=== PATIENT | female | born 1945 | race African-American/Black ===

== ENCOUNTER 2016-11-10 14:16 | Inpatient (IN) | payer MEDICARE, OTHER ==
[~2016-11-10] VITALS: Ht 157.5 cm; Wt 95.3 kg
[~2016-11-10 14:16] MED LIST: ACETAMINOPHEN-1 EAC1 ORAL; ACTOPLUS PO; ALBUTEROL2.5 MG/3 M INH; AMLODIPINE BESY10 MG PO; GLIMEPIRIDE1 MG ORAL; HYZAAR 50-12.51 EACH PO; IBUPROFEN600 MG ORAL; IBUPROFEN800 MG PO; IRON325 M1 PO; LEVAQUIN500 MG ORAL; PIOGLITAZONE-M1 EACH ORAL; PREDNISONE1 MG PO; PREDNISONE5 M3 PO; PREDNISONE5 MG ORAL; VICODIN ES 7.51 EACH PO
[2016-11-10] MEDS ORDERED: Solu-MEDROL 125mg Inj IVP ONE (14:45)
[2016-11-10] MEDS ORDERED: Ipratropium 0.02% Inh Soln 2.5ml UD HHN ONE (14:45)
[2016-11-10] MEDS ORDERED: Azithromycin 500 MG in NS 275 ML IV ONE (14:45)
[2016-11-10] MEDS ORDERED: cefTRIAXone 1 GM in NS 55 ML IV ONE (14:45)
--- NOTE | 2016-11-10 14:57 | Emergency Room Report ---
History of Present Illness General Chief Complaint: General Complaint Source: Patient Present Illness HPI The patient presents with cough with green phlegm chest pain and wheezing. She has a nebulizer at home and is on home oxygen. She's history of COPD infrequently this developed pneumonia. She's been taking Levaquin for several days. The dysuria got worse today. She has extreme dyspnea with minimal exertion. Here she had pneumonia and was treated with prednisone at that time. She's not taking prednisone at this time. This is not her worst attack. She's complaining about pain in her left chest. It's pleuritic. She's been taking [place] for this. It's helped a little bit. She denies any blood clots. There is no swelling or pain in her calves. No headache, NVD, dysuria, joint pain, rashes. Somewhat frustrated with illness. Allergies: Coded Allergies: No Known Allergies (Unverified , 06/17/12) Patient History Past Medical History: see triage record Social History: Reports: smoking - 58 yrs "cutting down" Social History Narrative at home Reviewed Nursing Documentation: PMH: Agreed, PSxH: Agreed Nursing Documentation-PMH Past Medical History: No History, Except For Hx Hypertension: Yes Hx COPD: Yes - chronic bronchitis Hx Diabetes: Yes Hx Cancer: No Hx Gastrointestinal Problems: No Hx Neurological Problems: No Review of Systems All Other Systems: negative except mentioned in HPI Physical Exam Vital Signs Date Time Temp Pulse Resp B/P Pulse Ox O2 Delivery O2 Flow Rate FiO2 5/5/17 14:36 97.5 107 24 92/63 87 Room Air Sp02 EP Interpretation: reviewed, abnormal - abnormal as reviewed by me General Appearance: no apparent distress, GCS 15, obese, Chronically Ill Head: normocephalic Eyes: bilateral eye PERRL, bilateral eye normal inspection ENT: moist mucus membranes Neck: supple Respiratory: crackles, wheezing, expiration, inspiration Cardiovascular #1: regular rate, rhythm, no edema Cardiovascular #2: 2+ radial (R) Gastrointestinal: normal inspection, normal bowel sounds, non tender, no mass, non-distended Musculoskeletal: back normal, gait/station normal, normal range of motion Neurologic: alert, oriented x3, grossly normal Skin: normal inspection, warm/dry Medical Decision Making Diagnostic Impression: Primary Impression: COPD exacerbation Additional Impressions: Hypoxia Tobacco abuse ER Course The patient presents with hypoxia, wheezing and rales. Differential includes pneumonia, COPD exacerbation, acute myocardial infarction amongst others. The patient is hypoxemic year. I shall be delivered. Workup will include EKG, chest x-ray and labs including blood cultures and lactate. She will receive gentle hydration, Solu-Medrol, albuterol and Atrovent, morphine for pain, Zofran and Rocephin and azithromycin. CXR no infiltrate. EKG no injury. Labs sl elevated WBC, renal insufficiency, nl BNP. Discussed with patient need to stop smoking. Admit med Dr. Siddiqi. Laboratory Tests Test 11/10/16 15:20 11/10/16 16:20 White Blood Count 12.6 K/UL (4.8-10.8) H Red Blood Count 4.05 M/UL (4.20-5.40) L Hemoglobin 10.3 G/DL (12.0-16.0) L Hematocrit 34.1 % (37.0-47.0) L Mean Corpuscular Volume 84 FL (80-99) Mean Corpuscular Hemoglobin 25.6 PG (27.0-31.0) L Mean Corpuscular Hemoglobin Concent 30.4 G/DL (32.0-36.0) L Red Cell Distribution Width 17.3 % (11.6-14.8) H Platelet Count 383 K/UL (150-450) Mean Platelet Volume 6.2 FL (6.5-10.1) L Neutrophils (%) (Auto) 74.6 % (45.0-75.0) Lymphocytes (%) (Auto) 14.1 % (20.0-45.0) L Monocytes (%) (Auto) 7.6 % (1.0-10.0) Eosinophils (%) (Auto) 2.9 % (0.0-3.0) Basophils (%) (Auto) 0.8 % (0.0-2.0) Prothrombin Time 11.4 SEC (9.30-11.50) Prothrombin Time INR 1.1 (0.9-1.1) PTT 22 SEC (23-33) L Sodium Level 131 mEQ/L (135-145) L Potassium Level 4.0 mEQ/L (3.4-4.9) Chloride Level 90 mEQ/L (98-107) L Carbon Dioxide Level 22 mEQ/L (20-30) Anion Gap 19 (5-15) H Blood Urea Nitrogen 24 mg/dL (7-23) H Creatinine 1.1 mg/dL (0.5-0.9) H Estimate Glomerular Filtration Rate mL/min (>60) Glucose Level 80 mg/dL (74-106) Lactic Acid Level 1.70 mmol/L (0.66-2.22) Calcium Level 9.4 mg/dL (8.6-10.2) Total Bilirubin 0.2 mg/dL (0.0-1.2) Aspartate Amino Transferase (AST) 17 U/L (5-40) Alanine Aminotransferase (ALT) 9 U/L (3-33) Alkaline Phosphatase 66 U/L (35-104) Total Creatine Kinase 45 U/L (26-140) Troponin I < 0.30 ng/mL (<=0.30) Pro-B-Type Natriuretic Peptide 61 pg/mL (0-125) Total Protein 8.2 g/dL (6.6-8.7) Albumin 3.9 g/dL (3.5-5.2) Globulin 4.3 g/dL Albumin/Globulin Ratio 0.9 (1.0-2.7) L Urine Color Pale yellow Urine Appearance Clear Urine pH 6.5 (4.5-8.0) Urine Specific Magnet 1.010 (1.005-1.035) Urine Protein Negative (NEGATIVE) Urine Glucose (UA) Negative (NEGATIVE) Urine Ketones Negative (NEGATIVE) Urine Occult Blood Negative (NEGATIVE) Urine Nitrite Negative (NEGATIVE) Urine Bilirubin Negative (NEGATIVE) Urine Urobilinogen Normal MG/DL (0.0-1.0) Urine Leukocyte Esterase 1+ (NEGATIVE) H Urine RBC 0-2 /HPF (0 - 2) Urine WBC 2-4 /HPF (0 - 2) Urine Squamous Epithelial Cells Few /LPF (NONE/OCC) Urine Bacteria Few /HPF (NONE) EKG Diagnostic Results Rate: normal Rhythm: NSR ST Segments: no acute changes Rhythm Strip Diag. Results EP Interpretation: yes Rhythm: NSR, no PVC's, no ectopy Chest X-Ray Diagnostic Results EP Interpretation: Yes Findings: no effusion, no pneumothorax, other - bilat congestion Number of Views: 1 Last Vital Signs Date Time Temp Pulse Resp B/P Pulse Ox O2 Delivery O2 Flow Rate FiO2 11/10/16 14:36 97.5 107 24 92/63 87 Room Air Status: improved Disposition: ADMITTED INPATIENT Condition: Serious Esvin Fairchild M.D. November 10, 2016 14:57
[2016-11-10] MEDS: Albuterol ud Inhalation HHN SCH ×3 (15:07→18:47)
[2016-11-10 15:36] LABS: BASOPHILS % (AUTO) 0.8 % (0.0-2.0); EOSINOPHILS % (AUTO) 2.9 % (0.0-3.0); LYMPHOCYTES % (AUTO) 14.1 % (20.0-45.0); MEAN CORPUSCULAR HEMOGLOBIN 25.6 PG (27.0-31.0); MEAN CORPUSCULAR HGB CONC 30.4 G/DL (32.0-36.0); MEAN CORPUSCULAR VOLUME 84 FL (80-99); MEAN PLATELET VOLUME 6.2 FL (6.5-10.1); MONOCYTES % (AUTO) 7.6 % (1.0-10.0); NEUTROPHILS % (AUTO) 74.6 % (45.0-75.0); PLATELET COUNT 383 K/UL (150-450); RED BLOOD COUNT 4.05 M/UL (4.20-5.40); RED CELL DISTRIBUTION WIDTH 17.3 % (11.6-14.8); WHITE BLOOD COUNT 12.6 K/UL (4.8-10.8)
[2016-11-10 15:49] LABS: INR 1.1 (0.9-1.1); PROTHROMBIN TIME 11.4 SEC (9.30-11.50)
[2016-11-10 15:53] LABS: ALANINE AMINOTRANSFERASE 9 U/L (3-33); ALBUMIN/GLOBULIN RATIO 0.9 (1.0-2.7); ANION GAP 19 (5-15); ASPARTATE AMINO TRANSFERASE 17 U/L (5-40); CALCIUM 9.4 mg/dL (8.6-10.2); CARBON DIOXIDE 22 mEQ/L (20-30); CHLORIDE 90 mEQ/L (98-107); CREATININE 1.1 mg/dL (0.5-0.9); HEMOLYSIS 6; SODIUM 131 mEQ/L (135-145); TOTAL PROTEIN 8.2 g/dL (6.6-8.7)
[2016-11-10] MEDS ORDERED: Azithromycin Inj IV ONE (15:59)
[2016-11-10 16:43] LABS: APPEARANCE,URINE CLEAR; KETONES,URINE NEGATIVE (NEGATIVE); LEUKOCYTE ESTERASE ,URINE 1+ (NEGATIVE); NITRITE,URINE NEGATIVE (NEGATIVE); PH,URINE 6.5 (4.5-8.0); PROTEIN,URINE NEGATIVE (NEGATIVE); UROBILINOGEN,URINE NORMAL MG/DL (0.0-1.0)
[2016-11-10 17:00] LABS: BACTERIA,URINE FEW /HPF; RBC,URINE 0-2 /HPF (0 - 2); SQUAMOUS EPITHELIAL CELL,UR FEW /LPF (NONE/OCC)
[2016-11-10 17:15] LABS: TROPONIN I < 0.30 ng/mL (<=0.30)
[2016-11-10 18:00] VITALS: BP 124/41
[2016-11-10] MEDS ORDERED: GABAPENTIN300 MG ORAL (18:25)
[2016-11-10] MEDS ORDERED: HYZAAR 100-251 EACH ORAL (18:27)
[2016-11-10] MEDS ORDERED: LORazepam Inj 2mg/ml 1ml IV PRN (18:30)
[2016-11-10] MEDS ORDERED: DuoNeb 0.5-3(2.5)mg/3ml neb HHN PRN (18:30)
[2016-11-10] MEDS ORDERED: Ketorolac 30mg Inj IV PRN (18:30)
[2016-11-10] MEDS ORDERED: Morphine Sulfate 2mg/ml Inj IVP PRN (18:30)
[2016-11-10] MEDS ORDERED: Nitroglycerin Subl 0.4mg tab (Bottle Of 25) SL PRN (18:30)
[2016-11-10] MEDS ORDERED: NORCO 5-325 TA1 EACH ORAL (18:34)
[2016-11-10] MEDS ORDERED: LEVOFLOXACIN500 MG ORAL (18:37)
[2016-11-10] MEDS ORDERED: ACTOPLUS MET ORAL ×2 (18:40→23:30)
[2016-11-10] MEDS ORDERED: GLIMEPIRIDE2 MG ORAL (18:45)
[2016-11-10] MEDS ORDERED: ATORVASTATIN CA40 MG ORAL (18:48)
[2016-11-10 19:18] VITALS: BP 140/52
[2016-11-10] MEDS: Theophylline ER 100mg ORAL SCH (20:31)
[2016-11-10] MEDS: Zosyn 3.375gm q8h **Extended infusion IVPB SCH ×2 (20:32)
[2016-11-10] MEDS: Heparin 5000 units/ml inj SUBQ SCH (21:00)
[2016-11-10] MEDS ORDERED: Piperacillin/Tazobactam 2.25 GM in D5W 55 ML IV SCH (22:00)
[2016-11-10] MEDS ORDERED: METFORMIN HCL850 M1 ORAL (23:11)
[2016-11-11] VITALS: BP 142/59
[2016-11-11] MEDS: Solu-MEDROL 125mg Inj IV SCH ×4 (00:09→17:26)
[2016-11-11 04:00] VITALS: BP 146/59
[2016-11-11] MEDS: Glimepiride 1mg tab ORAL SCH (06:20)
[2016-11-11] MEDS: Zosyn 3.375gm q8h **Extended infusion IVPB SCH ×6 (06:21→20:56)
[2016-11-11 08:00] VITALS: BP 141/54
[2016-11-11] MEDS: Theophylline ER 100mg ORAL SCH ×2 (08:37→20:56)
[2016-11-11] MEDS: Heparin 5000 units/ml inj SUBQ SCH ×2 (08:40→20:57)
[2016-11-11 12:00] VITALS: BP 139/56
--- NOTE | 2016-11-11 14:10 | Infectious Diseases Prog Note ---
Assessment/Plan Problems: (1) Community acquired pneumonia Assessment & Plan: on zosyn , will send sputum culture and blood culture , monitor CXR (2) COPD exacerbation Assessment & Plan: on steroids, and bronchodilators, recommend to taper steroids (3) Hypoxia Assessment & Plan: due to the above, continue oxygen and bronchodilators, titrate oxygen as needed Subjective Allergies: Coded Allergies: No Known Allergies (Unverified , 06/17/12) Objective Vital Signs Last 24 Hour Vital Signs Date Time Temp Pulse Resp B/P Pulse Ox O2 Delivery O2 Flow Rate FiO2 11/11/16 12:00 98.2 104 19 139/56 96 Nasal Cannula 11/11/16 08:37 112 141/54 11/11/16 08:00 97.9 112 19 141/54 93 Nasal Cannula 11/11/16 07:42 Nasal Cannula 2.0 28 11/11/16 07:42 94 Nasal Cannula 2.0 28 11/11/16 04:00 98.7 88 19 146/59 95 Nasal Cannula 11/11/16 00:00 97.7 58 20 142/59 100 Nasal Cannula 11/10/16 23:36 Nasal Cannula 2.0 28 11/10/16 23:00 95 2.0 28 11/10/16 19:18 97.5 100 16 140/52 100 Nasal Cannula 2.0 11/10/16 18:53 85 18 100 Nasal Cannula 2.0 28 11/10/16 18:48 80 18 95 Nasal Cannula 2.0 28 11/10/16 18:30 104 18 113/54 92 Nasal Cannula 2.0 11/10/16 18:00 97.6 106 16 124/41 99 Nasal Cannula 2.0 11/10/16 16:10 93 20 100 Nasal Cannula 2.0 28 11/10/16 15:55 91 18 100 Nasal Cannula 2.0 28 11/10/16 15:12 87 16 100 Nasal Cannula 2.0 28 11/10/16 15:00 85 14 Nasal Cannula 2.0 28 11/10/16 15:00 85 14 100 Nasal Cannula 2.0 28 11/10/16 14:36 97.5 107 24 92/63 87 Room Air Height (Feet): 5 Height (Inches): 2.00 Weight (Pounds): 210 Microbiology Date/Time Source Procedure Growth Status 11/11/16 00:15 Sputum Gram Stain - Final Resulted 11/11/16 00:15 Sputum Sputum Culture Pending Resulted Laboratory Tests Test 11/10/16 15:20 11/10/16 16:20 White Blood Count 12.6 K/UL (4.8-10.8) H Red Blood Count 4.05 M/UL (4.20-5.40) L Hemoglobin 10.3 G/DL (12.0-16.0) L Hematocrit 34.1 % (37.0-47.0) L Mean Corpuscular Volume 84 FL (80-99) Mean Corpuscular Hemoglobin 25.6 PG (27.0-31.0) L Mean Corpuscular Hemoglobin Concent 30.4 G/DL (32.0-36.0) L Red Cell Distribution Width 17.3 % (11.6-14.8) H Platelet Count 383 K/UL (150-450) Mean Platelet Volume 6.2 FL (6.5-10.1) L Neutrophils (%) (Auto) 74.6 % (45.0-75.0) Lymphocytes (%) (Auto) 14.1 % (20.0-45.0) L Monocytes (%) (Auto) 7.6 % (1.0-10.0) Eosinophils (%) (Auto) 2.9 % (0.0-3.0) Basophils (%) (Auto) 0.8 % (0.0-2.0) Prothrombin Time 11.4 SEC (9.30-11.50) Prothromb Time International Ratio 1.1 (0.9-1.1) Activated Partial Thromboplast Time 22 SEC (23-33) L Sodium Level 131 mEQ/L (135-145) L Potassium Level 4.0 mEQ/L (3.4-4.9) Chloride Level 90 mEQ/L (98-107) L Carbon Dioxide Level 22 mEQ/L (20-30) Anion Gap 19 (5-15) H Blood Urea Nitrogen 24 mg/dL (7-23) H Creatinine 1.1 mg/dL (0.5-0.9) H Estimat Glomerular Filtration Rate mL/min (>60) Glucose Level 80 mg/dL (74-106) Lactic Acid Level 1.70 mmol/L (0.66-2.22) Calcium Level 9.4 mg/dL (8.6-10.2) Total Bilirubin 0.2 mg/dL (0.0-1.2) Aspartate Amino Transf (AST/SGOT) 17 U/L (5-40) Alanine Aminotransferase (ALT/SGPT) 9 U/L (3-33) Alkaline Phosphatase 66 U/L (35-104) Total Creatine Kinase 45 U/L (26-140) Troponin I < 0.30 ng/mL (<=0.30) Pro-B-Type Natriuretic Peptide 61 pg/mL (0-125) Total Protein 8.2 g/dL (6.6-8.7) Albumin 3.9 g/dL (3.5-5.2) Globulin 4.3 g/dL Albumin/Globulin Ratio 0.9 (1.0-2.7) L Urine Color Pale yellow Urine Appearance Clear Urine pH 6.5 (4.5-8.0) Urine Specific Presto 1.010 (1.005-1.035) Urine Protein Negative (NEGATIVE) Urine Glucose (UA) Negative (NEGATIVE) Urine Ketones Negative (NEGATIVE) Urine Occult Blood Negative (NEGATIVE) Urine Nitrite Negative (NEGATIVE) Urine Bilirubin Negative (NEGATIVE) Urine Urobilinogen Normal MG/DL (0.0-1.0) Urine Leukocyte Esterase 1+ (NEGATIVE) H Urine RBC 0-2 /HPF (0 - 2) Urine WBC 2-4 /HPF (0 - 2) Urine Squamous Epithelial Cells Few /LPF (NONE/OCC) Urine Bacteria Few /HPF (NONE) Current Medications Medications (Trade) Dose Ordered Sig/Ana Maria Route PRN Reason Start Time Stop Time Status Last Admin Dose Admin Albuterol/ Ipratropium (DuoNeb 0.5-3(2.5)mg/3ml) 3 ml Q4H PRN HHN dyspnea 11/10/16 18:30 11/15/16 18:29 Amlodipine Besylate (Norvasc) 10 mg DAILY ORAL 11/11/16 09:00 12/11/16 08:59 11/11/16 08:37 Dextrose STAT PRN IV Hypoglycemia 11/10/16 18:30 12/10/16 18:29 Glimepiride (Amaryl) 2 mg ACBREAKFAST ORAL 11/11/16 06:30 12/11/16 06:29 11/11/16 06:20 Heparin Sodium (Porcine) (Heparin 5000 units/ml) 5,000 units EVERY 12 HOURS SUBQ 11/10/16 21:00 12/10/16 20:59 11/11/16 08:40 Ketorolac Tromethamine (Toradol 30mg) 30 mg Q8H PRN IV Moderate Pain (Pain Scale 4-6) 11/10/16 18:30 11/15/16 18:29 Lorazepam (Ativan 2mg/ml 1ml) 0.5 mg Q4H PRN IV For Anxiety 11/10/16 18:30 11/17/16 18:29 Metformin HCl (Glucophage) 850 mg BID ORAL 11/11/16 09:00 12/11/16 08:59 11/11/16 08:37 Methylprednisolone Sodium Succinate (Solu-MEDROL) 60 mg EVERY 6 HOURS IV 11/11/16 00:00 12/11/16 00:00 11/11/16 12:36 Morphine Sulfate (Morphine Sulfate) 2 mg Q4H PRN IVP Severe Pain (Pain Scale 7-10) 11/10/16 18:30 11/17/16 18:29 Nitroglycerin (Ntg) 0.4 mg Q5M X 3 DOSES PRN SL Prn Chest Pain 11/10/16 18:30 12/10/16 18:29 Ondansetron HCl (Zofran) 4 mg Q6H PRN IVP Nausea & Vomiting 11/10/16 18:30 12/10/16 18:29 Pioglitazone HCl (Actos) 15 mg BID PO 11/11/16 09:00 12/11/16 08:59 11/11/16 08:37 Piperacillin Sod/ Tazobactam Sod/ Dextrose (Zosyn/D5W) 110 ml @ 27.5 mls/hr EVERY 8 HOURS IVPB 11/10/16 20:00 11/15/16 19:59 11/11/16 13:10 Promethazine HCl/ Codeine (Phenergan with Codeine) 5 ml Q6H PRN ORAL cough 11/10/16 18:30 12/10/16 18:29 Temazepam (Restoril) 15 mg HSPRN PRN ORAL Insomnia 11/10/16 21:00 11/17/16 20:59 11/11/16 00:19 Theophylline (Sixto-Dur) 100 mg EVERY 12 HOURS ORAL 11/10/16 21:00 12/10/16 20:59 11/11/16 08:37 Rivka Mclean M.D. November 11, 2016 14:10
[2016-11-11 16:00] VITALS: BP 142/57
--- NOTE | 2016-11-11 17:08 | History and Physical Report ---
DATE OF ADMISSION: 11/10/2016 TIME SEEN: 8 a.m. CONSULTING PHYSICIAN: Jai Siddiqi D.O. CONSULTANTS: 1. Monika Sarmiento M.D. 2. CHIEF COMPLAINT: COPD exacerbation and short of breath. BRIEF HISTORY: This is a 71-year-old female who comes to my office regularly. Apparently, four days ago, started having cold and was started on antibiotics and phlegm started turning green. The patient became very short of breath yesterday, came into [facility], diagnosed with COPD exacerbation and URI, and admitted to medical floor for further care. Currently, calm, no complaints. PAST MEDICAL HISTORY: Include hypertension, diabetes, rheumatoid arthritis, and COPD. PAST SURGICAL HISTORY: Gallbladder. MEDICATIONS: Include Norvasc, Actos, Glucophage, Amaryl, Solu-Medrol, heparin, Zestril, theophylline, Zosyn, DuoNeb, Toradol, Ativan, morphine, nitroglycerine, Zofran, and promethazine. ALLERGIES: Denies. SOCIAL HISTORY: Positive for smoking. No alcohol. No intravenous drug abuse. FAMILY HISTORY: Noncontributory. REVIEW OF SYSTEMS: No chest pain. No shortness of breath. No nausea, vomiting, or diarrhea. PHYSICAL EXAMINATION: GENERAL: Calm in bed, oriented x3 . VITAL SIGNS: Temperature 97.0 degrees, pulse 112, respiratory rate 19, and blood pressure 141/54. CARDIOVASCULAR: No murmur. LUNGS: Poor exchange. ABDOMEN: Positive bowel sounds. Nontender and nondistended. EXTREMITIES: No clubbing, cyanosis, or edema. NEUROLOGIC: The patient moves all extremities. Slightly weak. LABORATORY AND DIAGNOSTIC DATA: Labs at this time show white count 12.6, hemoglobin and hematocrit 10/34, and platelets 383,000. Sodium 131, chloride 90, BUN and creatinine 24 and 1.1, and INR is 1.1. Urinalysis show 1+ leukocyte esterase. ASSESSMENT: 1. Urinary tract infection. 2. Chronic obstructive pulmonary disease exacerbation. 3. Upper respiratory infection. 4. Sepsis. 5. Hypertension. 6. Anemia. 7. Diabetes. 8. Rheumatoid arthritis. PLAN: Continue premedications. O2 and pulmonary treatment. Taper off steroids, antibiotics . OT/PT. Dietary evaluation. CBC and BMP in the morning. Dr. Sarmiento, consult. Jai Siddiqi D.O. DR: Joe JOB#: [id number] CC:
--- NOTE | 2016-11-11 17:33 | Cardiology Report ---
APPROVED REPORT EKG Measurement Heart [id number] Normal sinus rhythm Normal ECG
--- NOTE | 2016-11-11 19:53 | General Progress Note ---
Progress Note Progress Note [id number] full note dictated BLAIRE SANCHEZ November 11, 2016 19:53
[2016-11-11 20:00] VITALS: BP 122/57
--- NOTE | 2016-11-11 20:38 | Consultation ---
DATE OF CONSULTATION: 11/11/2016 INFECTIOUS DISEASES CONSULTATION: CONSULTING PHYSICIAN: Rivka Mclean M.D. ATTENDING PHYSICIAN: Jai Siddiqi M.D. REFERRING PHYSICIAN: Jai Siddiqi M.D. REQUESTING PHYSICIAN: Jai Siddiqi M.D. REASON FOR CONSULTATION: Pneumonia and recommendation for antibiotic therapy and the patient on failed oral outpatient. HISTORY OF PRESENT ILLNESS: The patient is a 71-year-old female with past medical history of COPD, bronchitis, and diabetes, presented to the hospital with productive cough, chest tightness, and progressive shortness of breath and it started a couple of days ago. The patient was using her inhalers at home with some benefit. She was started empirically on oral levofloxacin as an outpatient from Sunday to Sunday with no significant improvement. Her cough was persistent and continued to bring up yellowish phlegm, so she came into [facility] for evaluation and I was asked by the primary provider for antibiotics choice and further recommendation. PAST MEDICAL HISTORY: Significant for hypertension, COPD, and diabetes. PAST SURGICAL HISTORY: Unknown. SOCIAL HISTORY: She is a former smoker, currently smoking too. She is attempting to quit. She is denying any alcohol or any drugs. FAMILY HISTORY: Not contributory. ALLERGIES: No known drug allergy. MEDICATIONS: She is on Zosyn. For the rest of her medications, please refer to MAR as she is on a large dose of steroid. REVIEW OF SYSTEMS: A 12-point of system review were all negative apart from the one as I mentioned above in my History and Physical. PHYSICAL EXAMINATION: VITAL SIGNS: Temperature is 98.2 degrees, pulse 104, respiration 19, blood pressure 139/56, and pulse oximetry 96% on two liters nasal cannula. GENERAL: This is a morbidly obese female, lying in bed, awake, alert, and not in distress. HEENT: Normocephalic and atraumatic. Pupils are reactive to light. Moist oral mucosa. NECK: Supple. No lymphadenopathy. CARDIOVASCULAR: She is tachycardic. S1 and S2 are normal. No murmur. LUNGS: She had diminished breathing sound on both lung pacheco with wheezing at the bases and normal breathing efforts. ABDOMEN: Soft, obese, nontender, and nondistended. EXTREMITIES: No edema or cyanosis. LABORATORY DATA: Labs showed white count of 12.6, hemoglobin of 10.3, and platelet count 383,000, BUN of 24 and creatinine of 1.1. Urinalysis showed +1 leukocyte esterase, otherwise normal parameters. MICROBIOLOGY STUDIES: Sputum culture is pending. IMAGING DATA: Chest x-ray showed bilateral congestion. ASSESSMENT AND PLAN: 1. Community-acquired pneumonia, failed Levaquin as an outpatient. I agree on Zosyn for now empiric treatment and monitor chest x-ray. We will send sputum culture and blood culture. 2. Chronic obstructive pulmonary disease exacerbation, started on large dose of steroid. Continue bronchodilators. Recommend to taper steroids and to stop. 3. Hypoxemia due to the above. Continue oxygen and bronchodilator. Titrate oxygen to keep O2 saturation more than 90%. Thank you for the consult. Rivka Mclean M.D. DR: Erasmo JOB#: [id number] CC:
[2016-11-11] MEDS: NovoLOG Insulin Flexpen SUBQ SCH (20:57)
--- NOTE | 2016-11-11 22:03 | Consultation ---
History of Present Illness General Chief Complaint: General Complaint Present Illness HPI 71 year old female with hx of COPD, DM, liver disease presents to [place] [facility] [place] with cough with green phlegm chest pain and wheezing, some dysuria got worse today. She has extreme dyspnea with minimal exertion. She was diagnosed with acute exacerbation of asthmas/copd and admitted for further treatment. Allergies: Coded Allergies: No Known Allergies (Unverified , 06/17/12) Medication History Scheduled Amlodipine Besylate* (Amlodipine Besylate*), 10 MG PO DAILY, (Reported) Atorvastatin Calcium* (Atorvastatin Calcium*), 40 MG ORAL BEDTIME, (Reported) Gabapentin* (Gabapentin*), 300 MG ORAL BEDTIME, (Reported) Glimepiride (Glimepiride), 2 MG ORAL BEFORE BREAKFAST, (Reported) Levofloxacin (Levofloxacin*), 500 MG ORAL DAILY, (Reported) Losartan/Hydrochlorothiazide 100-25 Tablet (Hyzaar 100-25 Tablet), 1 TAB ORAL DAILY, (Reported) Pioglitazone Hcl/Metformin Hcl (Actoplus Met 15 Mg-850 Mg Tab), 1 TAB ORAL TWICE A DAY, (Reported) Pioglitazone Hcl/Metformin Hcl (Actoplus Met 15 Mg-850 Mg Tab), 1 TAB ORAL TWICE A DAY, (Reported) Scheduled PRN Albuterol Sulfate* (Albuterol Sulfate Hhn*), 3 ML INH Q4H PRN for Shortness of Breath, (Reported) Hydrocodone Bit/Acetaminophen 5-325* (Fenton 5-325*), 1 TAB ORAL DAILY PRN for Severe Pain (Pain Scale 7-10), (Reported) Ibuprofen* (Motrin*), 600 MG ORAL Q6H PRN for For Pain, (Reported) Discontinued Medications Acetaminophen With Codeine (T#3) (Tylenol #3 Tab*), 1 TAB ORAL Q4H PRN for For Pain, (Reported) Discontinued Reason: Pt stopped taking med Ferrous Sulfate (Iron), 325 MG PO TID, (Reported) Discontinued Reason: Pt stopped taking med Ibuprofen* (Motrin*), 800 MG PO PRN, (Reported) Discontinued Reason: Pt stopped taking med Levofloxacin* (Levaquin*), 500 MG ORAL DAILY, (Reported) Discontinued Reason: Pt stopped taking med Losartan/Hydrochlorothiazide 50-12.5 Tablet* (Hyzaar 50-12.5 Tablet*), 1 EACH PO DAILY, (Reported) Discontinued Reason: Pt stopped taking med Prednisone (Prednisone), 5 MG ORAL DAILY, (Reported) Discontinued Reason: Pt stopped taking med Prednisone (Prednisone), 4 MG PO, (Reported) Discontinued Reason: Pt stopped taking med Prednisone (Prednisone), 4 MG PO DAILY, (Reported) Discontinued Reason: Pt stopped taking med Prednisone (Prednisone), 1 MG PO DAILY, (Reported) Discontinued Reason: Pt stopped taking med Patient History Healthcare decision maker Resuscitation status Full Code Advanced Directive on File Past Medical/Surgical History Past Medical/Surgical History: (1) COPD (chronic obstructive pulmonary disease) (2) Chronic liver disease (3) Anemia Review of Systems All Other Systems: negative except mentioned in HPI Physical Exam General Appearance: WD/WN Lines, tubes and drains: peripheral HEENT: normocephalic, atraumatic Neck: non-tender, normal alignment Respiratory/Chest: chest wall non-tender Cardiovascular/Chest: normal peripheral pulses Abdomen: normal bowel sounds Genitourinary/Rectal: normal genital exam Extremities: normal range of motion Skin Exam: normal pigmentation Last 24 Hour Vital Signs Date Time Temp Pulse Resp B/P Pulse Ox O2 Delivery O2 Flow Rate FiO2 11/11/16 20:00 96.4 105 17 122/57 95 Room Air 11/11/16 19:30 93 Nasal Cannula 2.0 28 11/11/16 19:30 Nasal Cannula 2.0 28 11/11/16 16:00 97.8 98 19 142/57 97 Nasal Cannula 11/11/16 12:00 98.2 104 19 139/56 96 Nasal Cannula 11/11/16 08:37 112 141/54 11/11/16 08:00 97.9 112 19 141/54 93 Nasal Cannula 11/11/16 07:42 Nasal Cannula 2.0 28 11/11/16 07:42 94 Nasal Cannula 2.0 28 11/11/16 04:00 98.7 88 19 146/59 95 Nasal Cannula 11/11/16 00:00 97.7 58 20 142/59 100 Nasal Cannula 11/10/16 23:36 Nasal Cannula 2.0 28 11/10/16 23:00 95 2.0 28 Intake and Output 11/10/16 11/11/16 19:00 07:00 Intake Total 175 ml 110.0 ml Balance 175 ml 110.0 ml Intake Oral 120 ml IV Total 55 ml 110.0 ml # Voids 1 # Bowel Movements 1 Laboratory Tests Test 11/11/16 06:00 Plasma/Serum Osmolality Pending Microbiology Date/Time Source Procedure Growth Status 11/11/16 00:15 Sputum Gram Stain - Final Resulted 11/11/16 00:15 Sputum Sputum Culture Pending Resulted Height (Feet): 5 Height (Inches): 2.00 Weight (Pounds): 210 Medications Current Medications Medications (Trade) Dose Ordered Sig/Ana Maria Route PRN Reason Start Time Stop Time Status Last Admin Dose Admin Albuterol/ Ipratropium (DuoNeb 0.5-3(2.5)mg/3ml) 3 ml Q4H PRN HHN dyspnea 11/10/16 18:30 11/15/16 18:29 Amlodipine Besylate (Norvasc) 10 mg DAILY ORAL 11/11/16 09:00 12/11/16 08:59 11/11/16 08:37 Dextrose (Dextrose 50%) STAT PRN IV Hypoglycemia 11/11/16 19:00 12/11/16 18:59 Dextrose STAT PRN IV Hypoglycemia 11/10/16 18:30 12/10/16 18:29 Glimepiride (Amaryl) 2 mg ACBREAKFAST ORAL 11/11/16 06:30 12/11/16 06:29 11/11/16 06:20 Heparin Sodium (Porcine) (Heparin 5000 units/ml) 5,000 units EVERY 12 HOURS SUBQ 11/10/16 21:00 12/10/16 20:59 11/11/16 20:57 Insulin Aspart (NovoLOG) BEFORE MEALS AND HS SUBQ 11/11/16 21:00 12/11/16 20:59 11/11/16 20:57 Ketorolac Tromethamine (Toradol 30mg) 30 mg Q8H PRN IV Moderate Pain (Pain Scale 4-6) 11/10/16 18:30 11/15/16 18:29 Lorazepam (Ativan 2mg/ml 1ml) 0.5 mg Q4H PRN IV For Anxiety 11/10/16 18:30 11/17/16 18:29 Metformin HCl (Glucophage) 850 mg BID ORAL 11/11/16 09:00 12/11/16 08:59 11/11/16 17:26 Methylprednisolone Sodium Succinate (Solu-MEDROL) 60 mg EVERY 6 HOURS IV 11/11/16 00:00 12/11/16 00:00 11/11/16 17:26 Morphine Sulfate (Morphine Sulfate) 2 mg Q4H PRN IVP Severe Pain (Pain Scale 7-10) 11/10/16 18:30 11/17/16 18:29 Nitroglycerin (Ntg) 0.4 mg Q5M X 3 DOSES PRN SL Prn Chest Pain 11/10/16 18:30 12/10/16 18:29 Ondansetron HCl (Zofran) 4 mg Q6H PRN IVP Nausea & Vomiting 11/10/16 18:30 12/10/16 18:29 Pioglitazone HCl (Actos) 15 mg BID PO 11/11/16 09:00 12/11/16 08:59 11/11/16 17:26 Piperacillin Sod/ Tazobactam Sod/ Dextrose (Zosyn/D5W) 110 ml @ 27.5 mls/hr EVERY 8 HOURS IVPB 11/10/16 20:00 11/15/16 19:59 11/11/16 20:56 Promethazine HCl/ Codeine (Phenergan with Codeine) 5 ml Q6H PRN ORAL cough 11/10/16 18:30 12/10/16 18:29 Temazepam (Restoril) 15 mg HSPRN PRN ORAL Insomnia 11/10/16 21:00 11/17/16 20:59 11/11/16 00:19 Theophylline (Sixto-Dur) 100 mg EVERY 12 HOURS ORAL 11/10/16 21:00 12/10/16 20:59 11/11/16 20:56 Assessment/Plan Problem List: (1) Acute hypoxemic respiratory failure ICD Codes: J96.01 - Acute respiratory failure with hypoxia SNOMED: 361655999 (2) COPD exacerbation ICD Codes: J44.1 - Chronic obstructive pulmonary disease with (acute) exacerbation SNOMED: 338528924 (3) Chronic liver disease ICD Codes: K76.9 - Liver disease, unspecified SNOMED: 407116136 (4) Tobacco abuse ICD Codes: Z72.0 - Tobacco use SNOMED: 355520531, 02411189 Assessment/Plan respiratory treatment titrate fio2 iv antibiotics iv steroids dvt prophylaxis KYMBERLY JURADO November 11, 2016 22:03
[2016-11-12] VITALS: BP 115/47
[2016-11-12] MEDS: Solu-MEDROL 125mg Inj IV SCH ×5 (00:07→23:37)
[2016-11-12 03:30] LABS: CREATININE, RANDOM URINE 111.2 mg/dL
[2016-11-12 04:00] VITALS: BP 119/52
--- NOTE | 2016-11-12 05:28 | Consultation ---
DATE OF CONSULTATION: 11/11/2016 NEPHROLOGY CONSULTATION CONSULTING PHYSICIAN: Brook Robin M.D. REFERRING PHYSICIAN: Jai Siddiqi D.O. REASON FOR CONSULTATION: Hyponatremia. HISTORY OF PRESENT ILLNESS: The patient is a very pleasant 71-year-old female with a past medical history significant for hypertension, osteoarthritis, and diabetes, who is being treated as an outpatient for chronic obstructive pulmonary disease exacerbation and bronchitis with p.o. antibiotics, home O2, and nebulizer without any relief. She presented to emergency room for worsening of her symptoms. She was found to have pneumonia. She was found to have sodium of 131. I was called for management of renal disease and electrolyte imbalance. PAST MEDICAL HISTORY: Including, 1. History of arthritis. 2. History of chronic obstructive pulmonary disease. 3. History of hypertension. 4. History of hyperlipidemia. SOCIAL HISTORY: She has a history of smoking. There is no history of alcohol or recreational drug use. She lives at home. FAMILY HISTORY: Negative for any history of premature heart disease. REVIEW OF SYSTEMS: General: She complained of generalized weakness. Denied any fever, chills, or night sweats. Head And Neck: Denies any dysphagia, odynophagia, blurry vision, headache, or neck stiffness. Pulmonary: Complained of shortness of breath, cough, and green sputum. Cardiovascular: Denies any chest pain or palpitations. Gastrointestinal: Denies any nausea, vomiting, diarrhea, hematemesis, or hematochezia. Genitourinary: Denies any dysuria, frequency, or hematuria. Musculoskeletal: Denies any weakness or numbness. PHYSICAL EXAMINATION: VITAL SIGNS: The patient had temperature of 97 degrees, pulse rate of 100, respiratory rate of 24, and O2 saturation of 87%. HEAD AND NECK: No JVP. No LAD. No thyromegaly. Extraocular movement intact. Pupils are reactive to light and accommodation. LUNGS: She has bilateral wheezing. CARDIAC: Regular rate and rhythm. S1 and S2. No murmur. No rub. ABDOMEN: Soft, nontender, and nondistended. EXTREMITIES: No edema. No clubbing. No cyanosis. LABORATORY DATA: Laboratory value reveals sodium 131, potassium 4, chloride 90, bicarb 22, BUN of 24, creatinine of 1.1, and glucose of 80. AST of 17, AST of 9, and alkaline phosphatase of 66. Total protein of 8.2. Albumin of 3.9. CBC revealed WBC count of 12,000, hemoglobin of 10.3, hematocrit of 34, and platelet count of 383,000. UA revealed specific gravity of 1.010, pH of 6, leukocyte esterase 1+, WBC 2 to 4, RBCs 0 to 2, and leukocyte esterase positive. ASSESSMENT: 1. isovolemic hyponatremia, syndrome of inappropriate antidiuretic hormone secretion, possibly due to pneumonia. 2. Urinary tract infection. 3. Chronic obstructive pulmonary disease exacerbation. 4. Hypertension. 5. Diabetes. PLAN: Plan for the patient to obtain a random urine protein creatinine ratio to calculate the proteinuria. Check the urine sodium and creatinine to calculate fractional excretion of sodium. Check a TSH. Check the urine osmolality and serum osmolality. intravenous piggyback with normal saline. Free water restriction. Avoid any NSAIDs and nephrotoxics. Again, I would like to thank, Dr. Jai Siddiqi, for allowing me to participate in the care of this patient. Brook Robin M.D. DR: CHUCKIE JOB#: [id number] CC: ETELVINA
[2016-11-12] MEDS: Glimepiride 1mg tab ORAL SCH (06:06)
[2016-11-12] MEDS: Zosyn 3.375gm q8h **Extended infusion IVPB SCH ×6 (06:06→21:26)
[2016-11-12] MEDS: NovoLOG Insulin Flexpen SUBQ SCH ×4 (06:08→20:32)
[2016-11-12 07:50] LABS: MEAN CORPUSCULAR HEMOGLOBIN 26.1 PG (27.0-31.0); MEAN CORPUSCULAR HGB CONC 30.4 G/DL (32.0-36.0); MEAN CORPUSCULAR VOLUME 86 FL (80-99); MEAN PLATELET VOLUME 6.4 FL (6.5-10.1); PLATELET COUNT 351 K/UL (150-450); RED BLOOD COUNT 3.65 M/UL (4.20-5.40); RED CELL DISTRIBUTION WIDTH 17.1 % (11.6-14.8)
[2016-11-12 08:00] VITALS: BP 118/50
[2016-11-12 08:00] LABS: WHITE BLOOD COUNT 22.4 K/UL (4.8-10.8)
--- NOTE | 2016-11-12 08:01 | General Progress Note ---
Assessment/Plan Problem List: (1) Anemia ICD Codes: D64.9 - Anemia, unspecified SNOMED: 299216965 (2) Sepsis ICD Codes: A41.9 - Sepsis, unspecified organism SNOMED: 65084744 (3) Acute hypoxemic respiratory failure ICD Codes: J96.01 - Acute respiratory failure with hypoxia SNOMED: 093621413 (4) Tobacco abuse ICD Codes: Z72.0 - Tobacco use SNOMED: 519027137, 77531123 (5) Hypoxia ICD Codes: R09.02 - Hypoxemia SNOMED: 199734559, 21781335 (6) COPD exacerbation ICD Codes: J44.1 - Chronic obstructive pulmonary disease with (acute) exacerbation SNOMED: 573597837 (7) Community acquired pneumonia ICD Codes: J18.9 - Pneumonia, unspecified organism SNOMED: 576891039 Status: stable, progressing, tolerating diet Assessment/Plan o2 pulm tx abx ot pt diet cbc bmp am Subjective Constitutional: Reports: weakness Allergies: Coded Allergies: No Known Allergies (Unverified , 06/17/12) All Systems: reviewed and negative except above Subjective o2nc sl sob Objective Last 24 Hour Vital Signs Date Time Temp Pulse Resp B/P Pulse Ox O2 Delivery O2 Flow Rate FiO2 11/12/16 04:00 97.6 94 17 119/52 100 Room Air 11/12/16 00:00 97.2 100 19 115/47 95 Room Air 11/11/16 20:00 96.4 105 17 122/57 95 Room Air 11/11/16 19:30 93 Nasal Cannula 2.0 28 11/11/16 19:30 Nasal Cannula 2.0 28 11/11/16 16:00 97.8 98 19 142/57 97 Nasal Cannula 11/11/16 12:00 98.2 104 19 139/56 96 Nasal Cannula 11/11/16 08:37 112 141/54 11/11/16 08:00 97.9 112 19 141/54 93 Nasal Cannula Intake and Output 11/11/16 11/12/16 19:00 07:00 Intake Total 670.0 ml Balance 670.0 ml Intake Oral 450 ml IV Total 220.0 ml # Voids 3 1 # Bowel Movements 2 Laboratory Tests 11/12/16 01:00: Urine Eosinophils [Pending], Urine Osmolality [Pending], Urine Random Creatinine [Pending], Urine Random Microalbumin [Pending], Urine Random Total Protein 17, Urine Random Sodium 18, Urine Creatinine 111.2, Urine Microalbumin/ Creatinine Ratio [Pending] 11/12/16 07:20: White Blood Count [Pending], Red Blood Count [Pending], Hemoglobin [Pending], Hematocrit [Pending], Mean Corpuscular Volume [Pending], Mean Corpuscular Hemoglobin [Pending], Mean Corpuscular Hemoglobin Concent [Pending], Red Cell Distribution Width [Pending], Platelet Count [Pending], Mean Platelet Volume [ Pending], Neutrophils (%) (Auto) [Pending], Lymphocytes (%) (Auto) [Pending], Monocytes (%) (Auto) [Pending], Eosinophils (%) (Auto) [Pending], Basophils (%) (Auto) [Pending], Sodium Level [Pending], Potassium Level [Pending], Chloride Level [Pending], Carbon Dioxide Level [Pending], Blood Urea Nitrogen [Pending], Creatinine [Pending], Estimat Glomerular Filtration Rate [Pending], Glucose Level [Pending], Calcium Level [Pending] Height (Feet): 5 Height (Inches): 2.00 Weight (Pounds): 210 General Appearance: alert EENT: normal ENT inspection Neck: normal alignment Cardiovascular: normal peripheral pulses, normal rate, regular rhythm Respiratory/Chest: chest wall non-tender, lungs clear, decreased breath sounds Abdomen: normal bowel sounds, non tender, soft Extremities: normal inspection Edema: no edema noted Arm (L), no edema noted Arm (R), no edema noted Leg (L), no edema noted Leg (R), no edema noted Pedal (L), no edema noted Pedal (R), no edema noted Generalized Neurologic: responsive, motor weakness Skin: normal pigmentation, warm/dry QAMRA WALLACE November 12, 2016 08:01
[2016-11-12 08:18] LABS: ANION GAP 18 (5-15); CALCIUM 9.6 mg/dL (8.6-10.2); CARBON DIOXIDE 23 mEQ/L (20-30); CHLORIDE 94 mEQ/L (98-107); HEMOLYSIS 0; POTASSIUM 3.9 mEQ/L (3.4-4.9); SODIUM 135 mEQ/L (135-145)
[2016-11-12] MEDS: Theophylline ER 100mg ORAL SCH ×2 (09:30→20:25)
[2016-11-12] MEDS: Heparin 5000 units/ml inj SUBQ SCH ×2 (09:34→20:27)
--- NOTE | 2016-11-12 10:53 | Diagnostic Imaging Report ---
Indication: Cough Comparison: 03/11/16 A single view chest radiograph was obtained. Findings: Mild interstitial edema suspected with prominent pulmonary vascularity and heart size. The bones are osteopenic. Aorta is calcified. Impression: Suspected mild interstitial edema. Please correlate clinically
[2016-11-12 11:12] LABS: ANISOCYTOSIS 1+; BAND NEUTROPHILS % (MANUAL) 0 % (0-8); BASOPHILS % (MANUAL) 0 % (0-2); EOSINOPHILS % (MANUAL) 0 % (0-3); HYPOCHROMASIA 1+; LYMPHOCYTES % (MANUAL) 3 % (20-45); NEUTROPHILS % (MANUAL) 95 % (45-75); PLATELET ESTIMATE ADEQUATE; PLATELET MORPHOLOGY NORMAL; TOTAL CELLS COUNTED 100
[2016-11-12 12:00] VITALS: BP 131/62
--- NOTE | 2016-11-12 15:23 | Nephrology Progress Note ---
Assessment/Plan Assessment 1. isovolemic hyponatremia, syndrome of inappropriate antidiuretic hormone secretion, possibly due to pneumonia. 2. Urinary tract infection. 3. Chronic obstructive pulmonary disease exacerbation. 4. Hypertension. 5. Diabetes. Plan plan free water restriction mix all ivpb with ns monitoring renal function and electrolyte avoid NSAID Subjective Constitutional: Reports: malaise, weakness HEENT: Reports: no symptoms Genitourinary: Reports: no symptoms Neurologic/Psychiatric: Reports: no symptoms Subjective alert and awake c/o sob and cough Objective Objective Last 24 Hour Vital Signs Date Time Temp Pulse Resp B/P Pulse Ox O2 Delivery O2 Flow Rate FiO2 11/12/16 12:00 96.8 98 20 131/62 98 Nasal Cannula 2.0 11/12/16 09:00 98 118/50 11/12/16 08:00 97.0 98 20 118/50 96 Nasal Cannula 2.0 11/12/16 07:50 Nasal Cannula 2.0 28 11/12/16 07:40 94 Nasal Cannula 2.0 28 11/12/16 04:00 97.6 94 17 119/52 100 Room Air 11/12/16 00:00 97.2 100 19 115/47 95 Room Air 11/11/16 20:00 96.4 105 17 122/57 95 Room Air 11/11/16 19:30 93 Nasal Cannula 2.0 28 11/11/16 19:30 Nasal Cannula 2.0 28 11/11/16 16:00 97.8 98 19 142/57 97 Nasal Cannula Intake and Output 11/11/16 11/12/16 19:00 07:00 Intake Total 670.0 ml Balance 670.0 ml Intake Oral 450 ml IV Total 220.0 ml # Voids 3 1 # Bowel Movements 2 Laboratory Tests 11/12/16 01:00: Urine Eosinophils None seen, Urine Osmolality [Pending], Urine Random Creatinine [Pending], Urine Random Microalbumin [Pending], Urine Random Total Protein 17, Urine Random Sodium 18, Urine Creatinine 111.2, Urine Microalbumin/ Creatinine Ratio [Pending] 11/12/16 07:20: White Blood Count 22.4*H, Red Blood Count 3.65L, Hemoglobin 9.5L, Hematocrit 31.3L, Mean Corpuscular Volume 86, Mean Corpuscular Hemoglobin 26.1L, Mean Corpuscular Hemoglobin Concent 30.4L, Red Cell Distribution Width 17.1H, Platelet Count 351, Mean Platelet Volume 6.4L, Neutrophils (%) (Auto) , Lymphocytes (%) (Auto) , Monocytes (%) (Auto) , Eosinophils (%) (Auto) , Basophils (%) (Auto) , Differential Total Cells Counted 100, Neutrophils % ( Manual) 95H, Lymphocytes % (Manual) 3L, Monocytes % (Manual) 2, Eosinophils % ( Manual) 0, Basophils % (Manual) 0, Band Neutrophils 0, Platelet Estimate Adequate, Platelet Morphology Normal, Hypochromasia 1+, Anisocytosis 1+, Sodium Level 135, Potassium Level 3.9, Chloride Level 94L, Carbon Dioxide Level 23, Anion Gap 18H, Blood Urea Nitrogen 32H, Creatinine 1.0H, Estimat Glomerular Filtration Rate , Glucose Level 200H, Calcium Level 9.6 Height (Feet): 5 Height (Inches): 2.00 Weight (Pounds): 210 Objective HEAD AND NECK: No JVP. No LAD. No thyromegaly. Extraocular movement intact. Pupils are reactive to light and accommodation. LUNGS: She has bilateral wheezing. CARDIAC: Regular rate and rhythm. S1 and S2. No murmur. No rub. ABDOMEN: Soft, nontender, and nondistended. EXTREMITIES: No edema. No clubbing. No cyanosis. BLAIRE SANCHEZ November 12, 2016 15:23
[2016-11-12 16:00] VITALS: BP 115/62
[2016-11-12 20:00] VITALS: BP 125/63
--- NOTE | 2016-11-12 22:49 | Pulmonology Progress Note ---
Assessment/Plan Problems: (1) Acute hypoxemic respiratory failure (2) COPD (chronic obstructive pulmonary disease) (3) COPD exacerbation (4) Chronic liver disease Assessment/Plan titrate fio2 to sat of 925 respiratory treatment IV antibiotics taper steroids when less wheezing sliding scale insulin coverage. Subjective ROS Limited/Unobtainable: No Interval Events: still short of breath Allergies: Coded Allergies: No Known Allergies (Unverified , 06/17/12) Objective Last 24 Hour Vital Signs Date Time Temp Pulse Resp B/P Pulse Ox O2 Delivery O2 Flow Rate FiO2 11/12/16 20:00 Nasal Cannula 2.0 28 11/12/16 20:00 97.5 97 22 125/63 98 Nasal Cannula 2.0 11/12/16 20:00 98 Nasal Cannula 2.0 28 11/12/16 16:00 97.7 94 20 115/62 100 Nasal Cannula 2.0 11/12/16 12:00 96.8 98 20 131/62 98 Nasal Cannula 2.0 11/12/16 09:00 98 118/50 11/12/16 08:00 97.0 98 20 118/50 96 Nasal Cannula 2.0 11/12/16 07:50 Nasal Cannula 2.0 28 11/12/16 07:40 94 Nasal Cannula 2.0 28 11/12/16 04:00 97.6 94 17 119/52 100 Room Air 11/12/16 00:00 97.2 100 19 115/47 95 Room Air Intake and Output 11/11/16 11/12/16 19:00 07:00 Intake Total 670.0 ml Balance 670.0 ml Intake Oral 450 ml IV Total 220.0 ml # Voids 3 1 # Bowel Movements 2 Objective General Appearance: WD/WN Lines, tubes and drains: peripheral HEENT: normocephalic, atraumatic Neck: non-tender, normal alignment Respiratory/Chest: chest wall non-tender, rhonchi, wheezing Cardiovascular/Chest: normal peripheral pulses Abdomen: normal bowel sounds Genitourinary/Rectal: normal genital exam Extremities: normal range of motion Skin Exam: normal pigmentation General Appearance: WD/WN Microbiology Date/Time Source Procedure Growth Status 11/10/16 15:39 Blood Blood Culture - Preliminary NO GROWTH AFTER 24 HOURS Resulted 11/10/16 15:20 Blood Blood Culture - Preliminary NO GROWTH AFTER 24 HOURS Resulted 11/11/16 00:15 Sputum Gram Stain - Final Resulted 11/11/16 00:15 Sputum Sputum Culture - Preliminary NORMAL UPPER RESPIRATORY MICHAELA AT 24 ... Resulted Laboratory Tests 11/12/16 01:00: Urine Eosinophils None seen, Urine Osmolality [Pending], Urine Random Creatinine [Pending], Urine Random Microalbumin [Pending], Urine Random Total Protein 17, Urine Random Sodium 18, Urine Creatinine 111.2, Urine Microalbumin/ Creatinine Ratio [Pending] 11/12/16 07:20: White Blood Count 22.4*H, Red Blood Count 3.65L, Hemoglobin 9.5L, Hematocrit 31.3L, Mean Corpuscular Volume 86, Mean Corpuscular Hemoglobin 26.1L, Mean Corpuscular Hemoglobin Concent 30.4L, Red Cell Distribution Width 17.1H, Platelet Count 351, Mean Platelet Volume 6.4L, Neutrophils (%) (Auto) , Lymphocytes (%) (Auto) , Monocytes (%) (Auto) , Eosinophils (%) (Auto) , Basophils (%) (Auto) , Differential Total Cells Counted 100, Neutrophils % ( Manual) 95H, Lymphocytes % (Manual) 3L, Monocytes % (Manual) 2, Eosinophils % ( Manual) 0, Basophils % (Manual) 0, Band Neutrophils 0, Platelet Estimate Adequate, Platelet Morphology Normal, Hypochromasia 1+, Anisocytosis 1+, Sodium Level 135, Potassium Level 3.9, Chloride Level 94L, Carbon Dioxide Level 23, Anion Gap 18H, Blood Urea Nitrogen 32H, Creatinine 1.0H, Estimat Glomerular Filtration Rate , Glucose Level 200H, Calcium Level 9.6 Current Medications Medications (Trade) Dose Ordered Sig/Ana Maria Route PRN Reason Start Time Stop Time Status Last Admin Dose Admin Albuterol/ Ipratropium (DuoNeb 0.5-3(2.5)mg/3ml) 3 ml Q4H PRN HHN dyspnea 11/10/16 18:30 11/15/16 18:29 Amlodipine Besylate (Norvasc) 10 mg DAILY ORAL 11/11/16 09:00 12/11/16 08:59 11/11/16 08:37 Dextrose (Dextrose 50%) STAT PRN IV Hypoglycemia 11/11/16 19:00 12/11/16 18:59 Glimepiride (Amaryl) 2 mg ACBREAKFAST ORAL 11/11/16 06:30 12/11/16 06:29 11/12/16 06:06 Heparin Sodium (Porcine) (Heparin 5000 units/ml) 5,000 units EVERY 12 HOURS SUBQ 11/10/16 21:00 12/10/16 20:59 11/12/16 20:27 Insulin Aspart (NovoLOG) BEFORE MEALS AND HS SUBQ 11/11/16 21:00 12/11/16 20:59 11/12/16 20:32 Ketorolac Tromethamine (Toradol 30mg) 30 mg Q8H PRN IV Moderate Pain (Pain Scale 4-6) 11/10/16 18:30 11/15/16 18:29 Lorazepam (Ativan 2mg/ml 1ml) 0.5 mg Q4H PRN IV For Anxiety 11/10/16 18:30 11/17/16 18:29 Metformin HCl (Glucophage) 850 mg BID ORAL 11/11/16 09:00 12/11/16 08:59 11/12/16 17:35 Methylprednisolone Sodium Succinate (Solu-MEDROL) 60 mg EVERY 6 HOURS IV 11/11/16 00:00 12/11/16 00:00 11/12/16 17:35 Morphine Sulfate (Morphine Sulfate) 2 mg Q4H PRN IVP Severe Pain (Pain Scale 7-10) 11/10/16 18:30 11/17/16 18:29 Nitroglycerin (Ntg) 0.4 mg Q5M X 3 DOSES PRN SL Prn Chest Pain 11/10/16 18:30 12/10/16 18:29 Ondansetron HCl (Zofran) 4 mg Q6H PRN IVP Nausea & Vomiting 11/10/16 18:30 12/10/16 18:29 Pioglitazone HCl (Actos) 15 mg BID PO 11/11/16 09:00 12/11/16 08:59 11/12/16 17:35 Piperacillin Sod/ Tazobactam Sod/ Dextrose (Zosyn/D5W) 110 ml @ 27.5 mls/hr EVERY 8 HOURS IVPB 11/10/16 20:00 11/15/16 19:59 11/12/16 21:26 Promethazine HCl/ Codeine (Phenergan with Codeine) 5 ml Q6H PRN ORAL cough 11/10/16 18:30 12/10/16 18:29 Temazepam (Restoril) 15 mg HSPRN PRN ORAL Insomnia 11/10/16 21:00 11/17/16 20:59 11/12/16 22:04 Theophylline 100 mg 100 mg EVERY 12 HOURS ORAL 11/10/16 21:00 12/10/16 20:59 11/12/16 20:25 KYMBERLY JURADO November 12, 2016 22:49
[2016-11-12] MEDS: Promethazine/Codeine 5ml UD ORAL PRN (23:37)
[2016-11-13] VITALS: BP 112/55
[2016-11-13 04:00] VITALS: BP 105/60
[2016-11-13] MEDS: Glimepiride 1mg tab ORAL SCH (06:08)
[2016-11-13] MEDS: Solu-MEDROL 125mg Inj IV SCH ×3 (06:08→18:44)
[2016-11-13] MEDS: Zosyn 3.375gm q8h **Extended infusion IVPB SCH ×6 (06:08→22:25)
[2016-11-13] MEDS: NovoLOG Insulin Flexpen SUBQ SCH ×4 (06:14→21:20)
[2016-11-13 07:57] LABS: MEAN CORPUSCULAR HEMOGLOBIN 26.4 PG (27.0-31.0); MEAN CORPUSCULAR HGB CONC 30.3 G/DL (32.0-36.0); MEAN CORPUSCULAR VOLUME 87 FL (80-99); MEAN PLATELET VOLUME 6.3 FL (6.5-10.1); PLATELET COUNT 346 K/UL (150-450); RED BLOOD COUNT 3.76 M/UL (4.20-5.40); RED CELL DISTRIBUTION WIDTH 17.5 % (11.6-14.8); WHITE BLOOD COUNT 18.8 K/UL (4.8-10.8)
[2016-11-13 08:00] VITALS: BP 118/61
[2016-11-13 08:08] LABS: ANION GAP 15 (5-15); CALCIUM 9.4 mg/dL (8.6-10.2); CARBON DIOXIDE 25 mEQ/L (20-30); CHLORIDE 95 mEQ/L (98-107); CREATININE 0.9 mg/dL (0.5-0.9); HEMOLYSIS 11; POTASSIUM 3.8 mEQ/L (3.4-4.9); SODIUM 135 mEQ/L (135-145)
--- NOTE | 2016-11-13 08:50 | Nephrology Progress Note ---
Assessment/Plan Assessment 1. isovolemic hyponatremia, syndrome of inappropriate antidiuretic hormone secretion, possibly due to pneumonia. 2. Urinary tract infection. 3. Chronic obstructive pulmonary disease exacerbation. 4. Hypertension. 5. Diabetes. Plan plan free water restriction mix all ivpb with ns monitoring renal function and electrolyte avoid NSAID Subjective Subjective alert and awake c/o sob and cough Objective Objective Last 24 Hour Vital Signs Date Time Temp Pulse Resp B/P Pulse Ox O2 Delivery O2 Flow Rate FiO2 11/13/16 04:00 97.5 97 20 105/60 97 Nasal Cannula 2.0 11/13/16 00:00 97.5 90 20 112/55 97 Nasal Cannula 2.0 11/12/16 20:00 Nasal Cannula 2.0 28 11/12/16 20:00 97.5 97 22 125/63 98 Nasal Cannula 2.0 11/12/16 20:00 98 Nasal Cannula 2.0 28 11/12/16 16:00 97.7 94 20 115/62 100 Nasal Cannula 2.0 11/12/16 12:00 96.8 98 20 131/62 98 Nasal Cannula 2.0 11/12/16 09:00 98 118/50 Intake and Output 11/12/16 11/13/16 19:00 07:00 Intake Total 485.0 ml 110.0 ml Balance 485.0 ml 110.0 ml Intake Oral 320 ml IV Total 165.0 ml 110.0 ml # Voids 4 3 # Bowel Movements 1 1 Laboratory Tests 11/13/16 06:30: White Blood Count 18.8H, Red Blood Count 3.76L, Hemoglobin 9.9L, Hematocrit 32.8L, Mean Corpuscular Volume 87, Mean Corpuscular Hemoglobin 26.4L, Mean Corpuscular Hemoglobin Concent 30.3L, Red Cell Distribution Width 17.5H, Platelet Count 346, Mean Platelet Volume 6.3L, Neutrophils (%) (Auto) , Lymphocytes (%) (Auto) , Monocytes (%) (Auto) , Eosinophils (%) (Auto) , Basophils (%) (Auto) , Neutrophils % (Manual) [Pending], Lymphocytes % (Manual) [Pending], Platelet Estimate [Pending], Platelet Morphology [Pending], Sodium Level 135, Potassium Level 3.8, Chloride Level 95L, Carbon Dioxide Level 25, Anion Gap 15, Blood Urea Nitrogen 33H, Creatinine 0.9, Estimat Glomerular Filtration Rate , Glucose Level 245H, Calcium Level 9.4 Height (Feet): 5 Height (Inches): 2.00 Weight (Pounds): 210 Objective HEAD AND NECK: No JVP. No LAD. No thyromegaly. Extraocular movement intact. Pupils are reactive to light and accommodation. LUNGS: She has bilateral wheezing. CARDIAC: Regular rate and rhythm. S1 and S2. No murmur. No rub. ABDOMEN: Soft, nontender, and nondistended. EXTREMITIES: No edema. No clubbing. No cyanosis. BLAIRE SANCHEZ November 13, 2016 08:50
[2016-11-13] MEDS: Theophylline ER 100mg ORAL SCH ×2 (09:30→21:14)
[2016-11-13] MEDS: Heparin 5000 units/ml inj SUBQ SCH ×2 (09:32→21:21)
--- NOTE | 2016-11-13 10:13 | Nephrology Progress Note ---
Assessment/Plan Assessment 1. isovolemic hyponatremia, syndrome of inappropriate antidiuretic hormone secretion, possibly due to pneumonia. 2. Urinary tract infection. 3. Chronic obstructive pulmonary disease exacerbation. 4. Hypertension. 5. Diabetes. Plan plan free water restriction mix all ivpb with ns monitoring renal function and electrolyte avoid NSAID Subjective Constitutional: Reports: malaise, weakness HEENT: Reports: no symptoms Genitourinary: Reports: no symptoms Neurologic/Psychiatric: Reports: no symptoms Subjective alert and awake c/o sob and cough c/o insomnia for past few days Objective Objective Last 24 Hour Vital Signs Date Time Temp Pulse Resp B/P Pulse Ox O2 Delivery O2 Flow Rate FiO2 11/13/16 09:00 97 105/60 11/13/16 06:37 96 Nasal Cannula 2.0 11/13/16 06:37 Nasal Cannula 2.0 11/13/16 04:00 97.5 97 20 105/60 97 Nasal Cannula 2.0 11/13/16 00:00 97.5 90 20 112/55 97 Nasal Cannula 2.0 11/12/16 20:00 Nasal Cannula 2.0 28 11/12/16 20:00 97.5 97 22 125/63 98 Nasal Cannula 2.0 11/12/16 20:00 98 Nasal Cannula 2.0 28 11/12/16 16:00 97.7 94 20 115/62 100 Nasal Cannula 2.0 11/12/16 12:00 96.8 98 20 131/62 98 Nasal Cannula 2.0 Intake and Output 11/12/16 11/13/16 19:00 07:00 Intake Total 485.0 ml 110.0 ml Balance 485.0 ml 110.0 ml Intake Oral 320 ml IV Total 165.0 ml 110.0 ml # Voids 4 3 # Bowel Movements 1 1 Laboratory Tests 11/13/16 06:30: White Blood Count 18.8H, Red Blood Count 3.76L, Hemoglobin 9.9L, Hematocrit 32.8L, Mean Corpuscular Volume 87, Mean Corpuscular Hemoglobin 26.4L, Mean Corpuscular Hemoglobin Concent 30.3L, Red Cell Distribution Width 17.5H, Platelet Count 346, Mean Platelet Volume 6.3L, Neutrophils (%) (Auto) , Lymphocytes (%) (Auto) , Monocytes (%) (Auto) , Eosinophils (%) (Auto) , Basophils (%) (Auto) , Neutrophils % (Manual) [Pending], Lymphocytes % (Manual) [Pending], Platelet Estimate [Pending], Platelet Morphology [Pending], Sodium Level 135, Potassium Level 3.8, Chloride Level 95L, Carbon Dioxide Level 25, Anion Gap 15, Blood Urea Nitrogen 33H, Creatinine 0.9, Estimat Glomerular Filtration Rate , Glucose Level 245H, Calcium Level 9.4 Height (Feet): 5 Height (Inches): 2.00 Weight (Pounds): 210 Objective HEAD AND NECK: No JVP. No LAD. No thyromegaly. Extraocular movement intact. Pupils are reactive to light and accommodation. LUNGS: She has bilateral wheezing. CARDIAC: Regular rate and rhythm. S1 and S2. No murmur. No rub. ABDOMEN: Soft, nontender, and nondistended. EXTREMITIES: No edema. No clubbing. No cyanosis. BLAIRE SANCHEZ November 13, 2016 10:13
[2016-11-13 10:31] LABS: ANISOCYTOSIS 1+; BAND NEUTROPHILS % (MANUAL) 0 % (0-8); BASOPHILS % (MANUAL) 0 % (0-2); EOSINOPHILS % (MANUAL) 0 % (0-3); HYPOCHROMASIA 1+; LYMPHOCYTES % (MANUAL) 8 % (20-45); NEUTROPHILS % (MANUAL) 89 % (45-75); PLATELET ESTIMATE ADEQUATE; PLATELET MORPHOLOGY NORMAL; TOTAL CELLS COUNTED 100
[2016-11-13 12:00] VITALS: BP 145/59
[2016-11-13] MEDS: Promethazine/Codeine 5ml UD ORAL PRN (13:26)
--- NOTE | 2016-11-13 14:09 | General Progress Note ---
Assessment/Plan Problem List: (1) Anemia ICD Codes: D64.9 - Anemia, unspecified SNOMED: 852552310 (2) Sepsis ICD Codes: A41.9 - Sepsis, unspecified organism SNOMED: 03960263 (3) Acute hypoxemic respiratory failure ICD Codes: J96.01 - Acute respiratory failure with hypoxia SNOMED: 085670927 (4) Tobacco abuse ICD Codes: Z72.0 - Tobacco use SNOMED: 287937413, 60228732 (5) Hypoxia ICD Codes: R09.02 - Hypoxemia SNOMED: 468851221, 70525996 (6) COPD exacerbation ICD Codes: J44.1 - Chronic obstructive pulmonary disease with (acute) exacerbation SNOMED: 121510386 (7) Community acquired pneumonia ICD Codes: J18.9 - Pneumonia, unspecified organism SNOMED: 320095016 Status: stable, progressing, tolerating diet Assessment/Plan o2 pulm tx abx ot pt diet cbc bmp am Subjective Constitutional: Reports: weakness Respiratory: Reports: shortness of breath Allergies: Coded Allergies: No Known Allergies (Unverified , 06/17/12) All Systems: reviewed and negative except above Subjective o2nc sl sob Objective Last 24 Hour Vital Signs Date Time Temp Pulse Resp B/P Pulse Ox O2 Delivery O2 Flow Rate FiO2 11/13/16 12:00 97.2 99 20 145/59 96 Nasal Cannula 2.0 11/13/16 09:00 97 105/60 11/13/16 08:00 96.8 93 20 118/61 96 Nasal Cannula 2.0 11/13/16 06:37 96 Nasal Cannula 2.0 11/13/16 06:37 Nasal Cannula 2.0 11/13/16 04:00 97.5 97 20 105/60 97 Nasal Cannula 2.0 11/13/16 00:00 97.5 90 20 112/55 97 Nasal Cannula 2.0 11/12/16 20:00 Nasal Cannula 2.0 28 11/12/16 20:00 97.5 97 22 125/63 98 Nasal Cannula 2.0 11/12/16 20:00 98 Nasal Cannula 2.0 28 11/12/16 16:00 97.7 94 20 115/62 100 Nasal Cannula 2.0 Intake and Output 11/12/16 11/13/16 19:00 07:00 Intake Total 485.0 ml 110.0 ml Balance 485.0 ml 110.0 ml Intake Oral 320 ml IV Total 165.0 ml 110.0 ml # Voids 4 3 # Bowel Movements 1 1 Laboratory Tests 11/13/16 06:30: White Blood Count 18.8H, Red Blood Count 3.76L, Hemoglobin 9.9L, Hematocrit 32.8L, Mean Corpuscular Volume 87, Mean Corpuscular Hemoglobin 26.4L, Mean Corpuscular Hemoglobin Concent 30.3L, Red Cell Distribution Width 17.5H, Platelet Count 346, Mean Platelet Volume 6.3L, Neutrophils (%) (Auto) , Lymphocytes (%) (Auto) , Monocytes (%) (Auto) , Eosinophils (%) (Auto) , Basophils (%) (Auto) , Differential Total Cells Counted 100, Neutrophils % ( Manual) 89H, Lymphocytes % (Manual) 8L, Monocytes % (Manual) 3, Eosinophils % ( Manual) 0, Basophils % (Manual) 0, Band Neutrophils 0, Platelet Estimate Adequate, Platelet Morphology Normal, Hypochromasia 1+, Anisocytosis 1+, Sodium Level 135, Potassium Level 3.8, Chloride Level 95L, Carbon Dioxide Level 25, Anion Gap 15, Blood Urea Nitrogen 33H, Creatinine 0.9, Estimat Glomerular Filtration Rate , Glucose Level 245H, Calcium Level 9.4 Height (Feet): 5 Height (Inches): 2.00 Weight (Pounds): 210 General Appearance: alert EENT: normal ENT inspection Neck: normal alignment Cardiovascular: normal peripheral pulses, normal rate, regular rhythm Respiratory/Chest: chest wall non-tender, lungs clear, decreased breath sounds Abdomen: normal bowel sounds, non tender, soft Extremities: normal inspection Edema: no edema noted Arm (L), no edema noted Arm (R), no edema noted Leg (L), no edema noted Leg (R), no edema noted Pedal (L), no edema noted Pedal (R), no edema noted Generalized Neurologic: responsive, motor weakness Skin: normal pigmentation, warm/dry QAMAR WALLACE November 13, 2016 14:09
--- NOTE | 2016-11-13 15:33 | Infectious Diseases Prog Note ---
Assessment/Plan Problems: (1) Community acquired pneumonia Assessment & Plan: improving on zosyn , sputum culture and blood culture are pending , monitor CXR (2) COPD exacerbation Assessment & Plan: on steroids, and bronchodilators, recommend to taper steroids (3) Hypoxia Assessment & Plan: due to the above, continue oxygen and bronchodilators, titrate oxygen as needed (4) Leukocytosis Assessment & Plan: suspect due to large dose of steroids, recommend to taper, blood culture is negative Subjective Constitutional: Reports: no symptoms HEENT: Reports: no symptoms Respiratory: Reports: dry cough Cardiovascular: Reports: no symptoms Gastrointestinal/Abdominal: Reports: no symptoms Genitourinary: Reports: no symptoms Neurologic: Reports: no symptoms Psychiatric: Reports: no symptoms Skin: Reports: no symptoms Allergies: Coded Allergies: No Known Allergies (Unverified , 06/17/12) Objective Vital Signs Last 24 Hour Vital Signs Date Time Temp Pulse Resp B/P Pulse Ox O2 Delivery O2 Flow Rate FiO2 11/13/16 12:00 97.2 99 20 145/59 96 Nasal Cannula 2.0 11/13/16 09:00 97 105/60 11/13/16 08:00 96.8 93 20 118/61 96 Nasal Cannula 2.0 11/13/16 06:37 96 Nasal Cannula 2.0 11/13/16 06:37 Nasal Cannula 2.0 11/13/16 04:00 97.5 97 20 105/60 97 Nasal Cannula 2.0 11/13/16 00:00 97.5 90 20 112/55 97 Nasal Cannula 2.0 11/12/16 20:00 Nasal Cannula 2.0 28 11/12/16 20:00 97.5 97 22 125/63 98 Nasal Cannula 2.0 11/12/16 20:00 98 Nasal Cannula 2.0 28 11/12/16 16:00 97.7 94 20 115/62 100 Nasal Cannula 2.0 Height (Feet): 5 Height (Inches): 2.00 Weight (Pounds): 210 General Appearance: WD/WN, no acute distress HEENT: normocephalic, atraumatic, anicteric, mucous membranes moist Respiratory/Chest: chest wall non-tender, no respiratory distress, no accessory muscle use, decreased breath sounds, crackles/rales Cardiovascular: normal peripheral pulses, normal rate, regular rhythm, no gallop/murmur, no JVD Abdomen: normal bowel sounds, soft, non tender, no organomegaly, non distended , no mass Extremities: no cyanosis, no clubbing Skin: no rash, no lesions Microbiology Date/Time Source Procedure Growth Status 11/10/16 15:39 Blood Blood Culture - Preliminary NO GROWTH AFTER 48 HOURS Resulted 11/12/16 01:00 Sputum Gram Stain - Final Resulted 11/12/16 01:00 Sputum Sputum Culture Pending Resulted 11/11/16 00:15 Sputum Gram Stain - Final Complete 11/11/16 00:15 Sputum Sputum Culture - Final NORMAL UPPER RESPIRATORY MICHAELA PRESENT Complete Laboratory Tests Test 11/13/16 06:30 White Blood Count 18.8 K/UL (4.8-10.8) H Red Blood Count 3.76 M/UL (4.20-5.40) L Hemoglobin 9.9 G/DL (12.0-16.0) L Hematocrit 32.8 % (37.0-47.0) L Mean Corpuscular Volume 87 FL (80-99) Mean Corpuscular Hemoglobin 26.4 PG (27.0-31.0) L Mean Corpuscular Hemoglobin Concent 30.3 G/DL (32.0-36.0) L Red Cell Distribution Width 17.5 % (11.6-14.8) H Platelet Count 346 K/UL (150-450) Mean Platelet Volume 6.3 FL (6.5-10.1) L Neutrophils (%) (Auto) % (45.0-75.0) Lymphocytes (%) (Auto) % (20.0-45.0) Monocytes (%) (Auto) % (1.0-10.0) Eosinophils (%) (Auto) % (0.0-3.0) Basophils (%) (Auto) % (0.0-2.0) Differential Total Cells Counted 100 Neutrophils % (Manual) 89 % (45-75) H Lymphocytes % (Manual) 8 % (20-45) L Monocytes % (Manual) 3 % (1-10) Eosinophils % (Manual) 0 % (0-3) Basophils % (Manual) 0 % (0-2) Band Neutrophils 0 % (0-8) Platelet Estimate Adequate Platelet Morphology Normal Hypochromasia 1+ Anisocytosis 1+ Sodium Level 135 mEQ/L (135-145) Potassium Level 3.8 mEQ/L (3.4-4.9) Chloride Level 95 mEQ/L (98-107) L Carbon Dioxide Level 25 mEQ/L (20-30) Anion Gap 15 (5-15) Blood Urea Nitrogen 33 mg/dL (7-23) H Creatinine 0.9 mg/dL (0.5-0.9) Estimat Glomerular Filtration Rate mL/min (>60) Glucose Level 245 mg/dL (74-106) H Calcium Level 9.4 mg/dL (8.6-10.2) Current Medications Medications (Trade) Dose Ordered Sig/Ana Maria Route PRN Reason Start Time Stop Time Status Last Admin Dose Admin Albuterol/ Ipratropium (DuoNeb 0.5-3(2.5)mg/3ml) 3 ml Q4H PRN HHN dyspnea 11/10/16 18:30 11/15/16 18:29 Amlodipine Besylate (Norvasc) 10 mg DAILY ORAL 11/11/16 09:00 12/11/16 08:59 11/11/16 08:37 Dextrose (Dextrose 50%) STAT PRN IV Hypoglycemia 11/11/16 19:00 12/11/16 18:59 Glimepiride (Amaryl) 2 mg ACBREAKFAST ORAL 11/11/16 06:30 12/11/16 06:29 11/13/16 06:08 Heparin Sodium (Porcine) (Heparin 5000 units/ml) 5,000 units EVERY 12 HOURS SUBQ 11/10/16 21:00 12/10/16 20:59 11/13/16 09:32 Insulin Aspart (NovoLOG) BEFORE MEALS AND HS SUBQ 11/11/16 21:00 12/11/16 20:59 11/13/16 13:26 Ketorolac Tromethamine (Toradol 30mg) 30 mg Q8H PRN IV Moderate Pain (Pain Scale 4-6) 11/10/16 18:30 11/15/16 18:29 Lorazepam (Ativan 2mg/ml 1ml) 0.5 mg Q4H PRN IV For Anxiety 11/10/16 18:30 11/17/16 18:29 Metformin HCl (Glucophage) 850 mg BID ORAL 11/11/16 09:00 12/11/16 08:59 11/13/16 09:31 Methylprednisolone Sodium Succinate (Solu-MEDROL) 60 mg EVERY 6 HOURS IV 11/11/16 00:00 12/11/16 00:00 11/13/16 13:26 Morphine Sulfate (Morphine Sulfate) 2 mg Q4H PRN IVP Severe Pain (Pain Scale 7-10) 11/10/16 18:30 11/17/16 18:29 Nitroglycerin (Ntg) 0.4 mg Q5M X 3 DOSES PRN SL Prn Chest Pain 11/10/16 18:30 12/10/16 18:29 Ondansetron HCl (Zofran) 4 mg Q6H PRN IVP Nausea & Vomiting 11/10/16 18:30 12/10/16 18:29 Pioglitazone HCl (Actos) 15 mg BID PO 11/11/16 09:00 12/11/16 08:59 11/13/16 09:30 Piperacillin Sod/ Tazobactam Sod/ Dextrose (Zosyn/D5W) 110 ml @ 27.5 mls/hr EVERY 8 HOURS IVPB 11/10/16 20:00 11/15/16 19:59 11/13/16 14:36 Promethazine HCl/ Codeine (Phenergan with Codeine) 5 ml Q6H PRN ORAL cough 11/10/16 18:30 12/10/16 18:29 11/13/16 13:26 Temazepam (Restoril) 15 mg HSPRN PRN ORAL Insomnia 11/10/16 21:00 11/17/16 20:59 11/12/16 22:04 Theophylline 100 mg 100 mg EVERY 12 HOURS ORAL 11/10/16 21:00 12/10/16 20:59 11/13/16 09:30 Rivka Mclean M.D. November 13, 2016 15:33
[2016-11-13 16:00] VITALS: BP 111/65
[2016-11-13 20:00] VITALS: BP 114/71
[2016-11-14] VITALS: BP 118/76
[2016-11-14 04:00] VITALS: BP 122/75
[2016-11-14] MEDS: Zosyn 3.375gm q8h **Extended infusion IVPB SCH ×4 (06:16→14:00)
[2016-11-14] MEDS: Glimepiride 1mg tab ORAL SCH (06:16)
[2016-11-14] MEDS: NovoLOG Insulin Flexpen SUBQ SCH ×4 (06:22→21:00)
[2016-11-14 07:06] LABS: ANION GAP 12 (5-15); CALCIUM 9.5 mg/dL (8.6-10.2); CARBON DIOXIDE 28 mEQ/L (20-30); CHLORIDE 96 mEQ/L (98-107); HEMOLYSIS 1; POTASSIUM 4.4 mEQ/L (3.4-4.9); SODIUM 136 mEQ/L (135-145)
[2016-11-14 07:22] LABS: BASOPHILS % (AUTO) 0.8 % (0.0-2.0); MEAN CORPUSCULAR HEMOGLOBIN 25.8 PG (27.0-31.0); MEAN CORPUSCULAR HGB CONC 30.1 G/DL (32.0-36.0); MEAN CORPUSCULAR VOLUME 86 FL (80-99); MEAN PLATELET VOLUME 6.3 FL (6.5-10.1); MONOCYTES % (AUTO) 7.3 % (1.0-10.0); NEUTROPHILS % (AUTO) 83.9 % (45.0-75.0); PLATELET COUNT 345 K/UL (150-450); RED BLOOD COUNT 3.72 M/UL (4.20-5.40); RED CELL DISTRIBUTION WIDTH 17.7 % (11.6-14.8); WHITE BLOOD COUNT 14.5 K/UL (4.8-10.8)
[2016-11-14 08:03] VITALS: BP 128/63
[2016-11-14] MEDS ORDERED: Solu-MEDROL 125mg Inj IV SCH (09:00)
[2016-11-14] MEDS: Theophylline ER 100mg ORAL SCH ×2 (10:48→21:10)
[2016-11-14] MEDS: Heparin 5000 units/ml inj SUBQ SCH ×2 (10:51→21:15)
[2016-11-14 12:00] VITALS: BP 152/61
[2016-11-14 14:18] LABS: CREATININE RANDOM URINE 114.3 mg/dL (Not Estab.); MICROALBUMIN/CREATININE RATIO 16.4 mg/g creat (0.0-30.0)
--- NOTE | 2016-11-14 14:28 | General Progress Note ---
Assessment/Plan Problem List: (1) Anemia ICD Codes: D64.9 - Anemia, unspecified SNOMED: 200867415 (2) Sepsis ICD Codes: A41.9 - Sepsis, unspecified organism SNOMED: 82337349 (3) Acute hypoxemic respiratory failure ICD Codes: J96.01 - Acute respiratory failure with hypoxia SNOMED: 950966614 (4) Tobacco abuse ICD Codes: Z72.0 - Tobacco use SNOMED: 771187994, 32324532 (5) Hypoxia ICD Codes: R09.02 - Hypoxemia SNOMED: 248803247, 63572691 (6) COPD exacerbation ICD Codes: J44.1 - Chronic obstructive pulmonary disease with (acute) exacerbation SNOMED: 734461727 (7) Community acquired pneumonia ICD Codes: J18.9 - Pneumonia, unspecified organism SNOMED: 975434836 Status: stable, progressing, tolerating diet Assessment/Plan o2 pulm tx abx ot pt diet cbc bmp am Subjective Constitutional: Reports: weakness Respiratory: Reports: shortness of breath Allergies: Coded Allergies: No Known Allergies (Unverified , 06/17/12) All Systems: reviewed and negative except above Subjective o2nc sl sob Objective Last 24 Hour Vital Signs Date Time Temp Pulse Resp B/P Pulse Ox O2 Delivery O2 Flow Rate FiO2 11/14/16 12:00 97.7 94 15 152/61 98 Nasal Cannula 11/14/16 10:48 96 128/62 11/14/16 08:03 97.5 109 20 128/63 98 Room Air 11/14/16 07:15 Nasal Cannula 2.0 28 11/14/16 07:15 96 Nasal Cannula 2.0 28 11/14/16 04:00 98.0 92 18 122/75 98 Nasal Cannula 2.0 11/14/16 00:00 98.2 98 18 118/76 97 Nasal Cannula 2.0 11/13/16 20:00 97.3 102 18 114/71 Nasal Cannula 2.0 11/13/16 19:45 Nasal Cannula 2.0 28 11/13/16 19:45 95 Nasal Cannula 2.0 28 11/13/16 16:00 97.9 102 20 111/65 96 Nasal Cannula 2.0 Intake and Output 11/13/16 11/14/16 19:00 07:00 Intake Total 850 ml 110.0 ml Balance 850 ml 110.0 ml Intake Oral 850 ml IV Total 110.0 ml # Voids 6 4 # Bowel Movements 1 1 Laboratory Tests 11/14/16 06:00: White Blood Count 14.5H, Red Blood Count 3.72L, Hemoglobin 9.6L, Hematocrit 31.9L, Mean Corpuscular Volume 86, Mean Corpuscular Hemoglobin 25.8L, Mean Corpuscular Hemoglobin Concent 30.1L, Red Cell Distribution Width 17.7H, Platelet Count 345, Mean Platelet Volume 6.3L, Neutrophils (%) (Auto) 83.9H, Lymphocytes (%) (Auto) 8.0L, Monocytes (%) (Auto) 7.3, Eosinophils (%) (Auto) 0.0, Basophils (%) (Auto) 0.8, Sodium Level 136, Potassium Level 4.4, Chloride Level 96L, Carbon Dioxide Level 28, Anion Gap 12, Blood Urea Nitrogen 35H, Creatinine 1.0H, Estimat Glomerular Filtration Rate , Glucose Level 149H, Calcium Level 9.5 Height (Feet): 5 Height (Inches): 2.00 Weight (Pounds): 210 General Appearance: lethargic EENT: normal ENT inspection Neck: normal alignment Cardiovascular: normal peripheral pulses, normal rate, regular rhythm Respiratory/Chest: chest wall non-tender, lungs clear, decreased breath sounds Abdomen: normal bowel sounds, non tender, soft Extremities: normal inspection Edema: no edema noted Arm (L), no edema noted Arm (R), no edema noted Leg (L), no edema noted Leg (R), no edema noted Pedal (L), no edema noted Pedal (R), no edema noted Generalized Neurologic: responsive, motor weakness Skin: normal pigmentation, warm/dry QAMAR WALLACE November 14, 2016 14:28
--- NOTE | 2016-11-14 15:33 | Infectious Diseases Prog Note ---
Assessment/Plan Problems: (1) Community acquired pneumonia Assessment & Plan: improved on zosyn , with sputum culture grew amaury albicans, most likely colonization. blood culture is pending , will switch to oral augmantin to finish her course of therapy for 10 days total (2) COPD exacerbation Assessment & Plan: on steroids, and bronchodilators, recommend to taper steroids (3) Hypoxia Assessment & Plan: due to the above, continue oxygen and bronchodilators, titrate oxygen as needed (4) Leukocytosis Assessment & Plan: suspect due to large dose of steroids, recommend to taper, blood culture is negative Subjective Constitutional: Reports: no symptoms HEENT: Reports: no symptoms Respiratory: Reports: dry cough Breasts: Reports: no symptoms Cardiovascular: Reports: no symptoms Gastrointestinal/Abdominal: Reports: no symptoms Genitourinary: Reports: no symptoms Neurologic: Reports: no symptoms Psychiatric: Reports: no symptoms Skin: Reports: no symptoms Hematologic: Reports: no symptoms Allergies: Coded Allergies: No Known Allergies (Unverified , 06/17/12) Objective Vital Signs Last 24 Hour Vital Signs Date Time Temp Pulse Resp B/P Pulse Ox O2 Delivery O2 Flow Rate FiO2 11/14/16 12:00 97.7 94 15 152/61 98 Nasal Cannula 11/14/16 10:48 96 128/62 11/14/16 08:03 97.5 109 20 128/63 98 Room Air 11/14/16 07:15 Nasal Cannula 2.0 28 11/14/16 07:15 96 Nasal Cannula 2.0 28 11/14/16 04:00 98.0 92 18 122/75 98 Nasal Cannula 2.0 11/14/16 00:00 98.2 98 18 118/76 97 Nasal Cannula 2.0 11/13/16 20:00 97.3 102 18 114/71 Nasal Cannula 2.0 11/13/16 19:45 Nasal Cannula 2.0 28 11/13/16 19:45 95 Nasal Cannula 2.0 28 11/13/16 16:00 97.9 102 20 111/65 96 Nasal Cannula 2.0 Height (Feet): 5 Height (Inches): 2.00 Weight (Pounds): 210 General Appearance: WD/WN, no acute distress HEENT: normocephalic, atraumatic, anicteric, mucous membranes moist Respiratory/Chest: chest wall non-tender, normal breath sounds, no respiratory distress, no accessory muscle use, decreased breath sounds, expiratory wheezing Cardiovascular: normal peripheral pulses, normal rate, regular rhythm, no gallop/murmur Abdomen: normal bowel sounds, soft, non tender, no organomegaly, non distended Extremities: no cyanosis, no clubbing Skin: no rash, no lesions Musculoskeletal: normal muscle bulk Microbiology Date/Time Source Procedure Growth Status 11/12/16 01:00 Sputum Gram Stain - Final Complete 11/12/16 01:00 Sputum Culture - Final Amaury Albicans Usual Upper Respiratory Tatiana Complete Laboratory Tests Test 11/14/16 06:00 White Blood Count 14.5 K/UL (4.8-10.8) H Red Blood Count 3.72 M/UL (4.20-5.40) L Hemoglobin 9.6 G/DL (12.0-16.0) L Hematocrit 31.9 % (37.0-47.0) L Mean Corpuscular Volume 86 FL (80-99) Mean Corpuscular Hemoglobin 25.8 PG (27.0-31.0) L Mean Corpuscular Hemoglobin Concent 30.1 G/DL (32.0-36.0) L Red Cell Distribution Width 17.7 % (11.6-14.8) H Platelet Count 345 K/UL (150-450) Mean Platelet Volume 6.3 FL (6.5-10.1) L Neutrophils (%) (Auto) 83.9 % (45.0-75.0) H Lymphocytes (%) (Auto) 8.0 % (20.0-45.0) L Monocytes (%) (Auto) 7.3 % (1.0-10.0) Eosinophils (%) (Auto) 0.0 % (0.0-3.0) Basophils (%) (Auto) 0.8 % (0.0-2.0) Sodium Level 136 mEQ/L (135-145) Potassium Level 4.4 mEQ/L (3.4-4.9) Chloride Level 96 mEQ/L (98-107) L Carbon Dioxide Level 28 mEQ/L (20-30) Anion Gap 12 (5-15) Blood Urea Nitrogen 35 mg/dL (7-23) H Creatinine 1.0 mg/dL (0.5-0.9) H Estimat Glomerular Filtration Rate mL/min (>60) Glucose Level 149 mg/dL (74-106) H Calcium Level 9.5 mg/dL (8.6-10.2) Current Medications Medications (Trade) Dose Ordered Sig/Ana Maria Route PRN Reason Start Time Stop Time Status Last Admin Dose Admin Albuterol/ Ipratropium (DuoNeb 0.5-3(2.5)mg/3ml) 3 ml Q4H PRN HHN dyspnea 11/10/16 18:30 11/15/16 18:29 Amlodipine Besylate (Norvasc) 10 mg DAILY ORAL 11/11/16 09:00 12/11/16 08:59 11/14/16 10:48 Amoxicillin/ Clavulanate Potassium (Augmentin) 875 mg EVERY 12 HOURS ORAL 11/14/16 21:00 11/21/16 20:59 Dextrose (Dextrose 50%) STAT PRN IV Hypoglycemia 11/11/16 19:00 12/11/16 18:59 Glimepiride (Amaryl) 2 mg ACBREAKFAST ORAL 11/11/16 06:30 12/11/16 06:29 11/14/16 06:16 Heparin Sodium (Porcine) (Heparin 5000 units/ml) 5,000 units EVERY 12 HOURS SUBQ 11/10/16 21:00 12/10/16 20:59 11/14/16 10:51 Insulin Aspart (NovoLOG) BEFORE MEALS AND HS SUBQ 11/11/16 21:00 12/11/16 20:59 11/14/16 06:22 Ketorolac Tromethamine (Toradol 30mg) 30 mg Q8H PRN IV Moderate Pain (Pain Scale 4-6) 11/10/16 18:30 11/15/16 18:29 Lorazepam (Ativan 2mg/ml 1ml) 0.5 mg Q4H PRN IV For Anxiety 11/10/16 18:30 11/17/16 18:29 Metformin HCl (Glucophage) 850 mg BID ORAL 11/11/16 09:00 12/11/16 08:59 11/14/16 10:48 Morphine Sulfate (Morphine Sulfate) 2 mg Q4H PRN IVP Severe Pain (Pain Scale 7-10) 11/10/16 18:30 11/17/16 18:29 Nitroglycerin (Ntg) 0.4 mg Q5M X 3 DOSES PRN SL Prn Chest Pain 11/10/16 18:30 12/10/16 18:29 Ondansetron HCl (Zofran) 4 mg Q6H PRN IVP Nausea & Vomiting 11/10/16 18:30 12/10/16 18:29 Pioglitazone HCl (Actos) 15 mg BID PO 11/11/16 09:00 12/11/16 08:59 11/14/16 10:48 Prednisone (predniSONE) 40 mg DAILY ORAL 11/15/16 09:00 12/15/16 08:59 Promethazine HCl/ Codeine (Phenergan with Codeine) 5 ml Q6H PRN ORAL cough 11/10/16 18:30 12/10/16 18:29 11/13/16 13:26 Temazepam (Restoril) 15 mg HSPRN PRN ORAL Insomnia 11/10/16 21:00 11/17/16 20:59 11/13/16 22:28 Theophylline (Sixto-Dur) 100 mg EVERY 12 HOURS ORAL 11/10/16 21:00 12/10/16 20:59 11/14/16 10:48 Rivka Mclean M.D. November 14, 2016 15:33
[2016-11-14 15:50] VITALS: BP 150/75
--- NOTE | 2016-11-14 17:23 | Pulmonology Progress Note ---
Assessment/Plan Problems: (1) Acute hypoxemic respiratory failure (2) COPD (chronic obstructive pulmonary disease) (3) COPD exacerbation (4) Chronic liver disease Assessment/Plan titrate fio2 to sat of 925 respiratory treatment IV antibiotics taper steroids, change to po prednisone sliding scale insulin coverage. dc home in 1-2 days Subjective Interval Events: late note for 11/13: still coughing, but much less Allergies: Coded Allergies: No Known Allergies (Unverified , 06/17/12) Objective Last 24 Hour Vital Signs Date Time Temp Pulse Resp B/P Pulse Ox O2 Delivery O2 Flow Rate FiO2 11/14/16 15:50 97.5 97 15 150/75 94 Room Air 11/14/16 12:00 97.7 94 15 152/61 98 Nasal Cannula 11/14/16 10:48 96 128/62 11/14/16 08:03 97.5 109 20 128/63 98 Room Air 11/14/16 07:15 Nasal Cannula 2.0 28 11/14/16 07:15 96 Nasal Cannula 2.0 28 11/14/16 04:00 98.0 92 18 122/75 98 Nasal Cannula 2.0 11/14/16 00:00 98.2 98 18 118/76 97 Nasal Cannula 2.0 11/13/16 20:00 97.3 102 18 114/71 Nasal Cannula 2.0 11/13/16 19:45 Nasal Cannula 2.0 28 11/13/16 19:45 95 Nasal Cannula 2.0 28 Intake and Output 11/13/16 11/14/16 19:00 07:00 Intake Total 850 ml 110.0 ml Balance 850 ml 110.0 ml Intake Oral 850 ml IV Total 110.0 ml # Voids 6 4 # Bowel Movements 1 1 Objective General Appearance: WD/WN Lines, tubes and drains: peripheral HEENT: normocephalic, atraumatic Neck: non-tender, normal alignment Respiratory/Chest: chest wall non-tender, rhonchi, wheezing Cardiovascular/Chest: normal peripheral pulses Abdomen: normal bowel sounds Genitourinary/Rectal: normal genital exam Extremities: normal range of motion Skin Exam: normal pigmentation Microbiology Date/Time Source Procedure Growth Status 11/12/16 01:00 Sputum Gram Stain - Final Complete 11/12/16 01:00 Sputum Culture - Final Heidy Albicans Usual Upper Respiratory Tatiana Complete Laboratory Tests 11/14/16 06:00: White Blood Count 14.5H, Red Blood Count 3.72L, Hemoglobin 9.6L, Hematocrit 31.9L, Mean Corpuscular Volume 86, Mean Corpuscular Hemoglobin 25.8L, Mean Corpuscular Hemoglobin Concent 30.1L, Red Cell Distribution Width 17.7H, Platelet Count 345, Mean Platelet Volume 6.3L, Neutrophils (%) (Auto) 83.9H, Lymphocytes (%) (Auto) 8.0L, Monocytes (%) (Auto) 7.3, Eosinophils (%) (Auto) 0.0, Basophils (%) (Auto) 0.8, Sodium Level 136, Potassium Level 4.4, Chloride Level 96L, Carbon Dioxide Level 28, Anion Gap 12, Blood Urea Nitrogen 35H, Creatinine 1.0H, Estimat Glomerular Filtration Rate , Glucose Level 149H, Calcium Level 9.5 Current Medications Medications (Trade) Dose Ordered Sig/Ana Maria Route PRN Reason Start Time Stop Time Status Last Admin Dose Admin Albuterol/ Ipratropium (DuoNeb 0.5-3(2.5)mg/3ml) 3 ml Q4H PRN HHN dyspnea 11/10/16 18:30 11/15/16 18:29 Amlodipine Besylate (Norvasc) 10 mg DAILY ORAL 11/11/16 09:00 12/11/16 08:59 11/14/16 10:48 Amoxicillin/ Clavulanate Potassium (Augmentin) 875 mg EVERY 12 HOURS ORAL 11/14/16 21:00 11/21/16 20:59 Dextrose (Dextrose 50%) STAT PRN IV Hypoglycemia 11/11/16 19:00 12/11/16 18:59 Glimepiride (Amaryl) 2 mg ACBREAKFAST ORAL 11/11/16 06:30 12/11/16 06:29 11/14/16 06:16 Heparin Sodium (Porcine) (Heparin 5000 units/ml) 5,000 units EVERY 12 HOURS SUBQ 11/10/16 21:00 12/10/16 20:59 11/14/16 10:51 Insulin Aspart (NovoLOG) BEFORE MEALS AND HS SUBQ 11/11/16 21:00 12/11/16 20:59 11/14/16 06:22 Ketorolac Tromethamine (Toradol 30mg) 30 mg Q8H PRN IV Moderate Pain (Pain Scale 4-6) 11/10/16 18:30 11/15/16 18:29 Lorazepam (Ativan 2mg/ml 1ml) 0.5 mg Q4H PRN IV For Anxiety 11/10/16 18:30 11/17/16 18:29 Metformin HCl (Glucophage) 850 mg BID ORAL 11/11/16 09:00 12/11/16 08:59 11/14/16 10:48 Morphine Sulfate (Morphine Sulfate) 2 mg Q4H PRN IVP Severe Pain (Pain Scale 7-10) 11/10/16 18:30 11/17/16 18:29 Nitroglycerin (Ntg) 0.4 mg Q5M X 3 DOSES PRN SL Prn Chest Pain 11/10/16 18:30 12/10/16 18:29 Ondansetron HCl (Zofran) 4 mg Q6H PRN IVP Nausea & Vomiting 11/10/16 18:30 12/10/16 18:29 Pioglitazone HCl (Actos) 15 mg BID PO 11/11/16 09:00 12/11/16 08:59 11/14/16 10:48 Prednisone (predniSONE) 40 mg DAILY ORAL 11/15/16 09:00 12/15/16 08:59 Promethazine HCl/ Codeine (Phenergan with Codeine) 5 ml Q6H PRN ORAL cough 11/10/16 18:30 12/10/16 18:29 11/13/16 13:26 Temazepam (Restoril) 15 mg HSPRN PRN ORAL Insomnia 11/10/16 21:00 11/17/16 20:59 11/13/16 22:28 Theophylline (Sixto-Dur) 100 mg EVERY 12 HOURS ORAL 11/10/16 21:00 12/10/16 20:59 11/14/16 10:48 KYMBERLY JURADO November 14, 2016 17:23
[2016-11-14 20:00] VITALS: BP 137/57
[2016-11-14] MEDS: Augmentin 875mg Tab ORAL SCH (21:09)
--- NOTE | 2016-11-14 21:28 | Nephrology Progress Note ---
Assessment/Plan Assessment 1. isovolemic hyponatremia, syndrome of inappropriate antidiuretic hormone secretion, possibly due to pneumonia. 2. Urinary tract infection. 3. Chronic obstructive pulmonary disease exacerbation. 4. Hypertension. 5. Diabetes. Plan plan free water restriction mix all ivpb with ns monitoring renal function and electrolyte avoid NSAID Subjective Constitutional: Reports: no symptoms HEENT: Reports: no symptoms Genitourinary: Reports: no symptoms Neurologic/Psychiatric: Reports: no symptoms Subjective alert and awake sob and cough now is getting better Objective Objective Last 24 Hour Vital Signs Date Time Temp Pulse Resp B/P Pulse Ox O2 Delivery O2 Flow Rate FiO2 11/14/16 20:00 97.7 105 16 137/57 90 11/14/16 15:50 97.5 97 15 150/75 94 Room Air 11/14/16 12:00 97.7 94 15 152/61 98 Nasal Cannula 11/14/16 10:48 96 128/62 11/14/16 08:03 97.5 109 20 128/63 98 Room Air 11/14/16 07:15 Nasal Cannula 2.0 28 11/14/16 07:15 96 Nasal Cannula 2.0 28 11/14/16 04:00 98.0 92 18 122/75 98 Nasal Cannula 2.0 11/14/16 00:00 98.2 98 18 118/76 97 Nasal Cannula 2.0 Intake and Output 11/13/16 11/14/16 19:00 07:00 Intake Total 850 ml 110.0 ml Balance 850 ml 110.0 ml Intake Oral 850 ml IV Total 110.0 ml # Voids 6 4 # Bowel Movements 1 1 Laboratory Tests 11/14/16 06:00: White Blood Count 14.5H, Red Blood Count 3.72L, Hemoglobin 9.6L, Hematocrit 31.9L, Mean Corpuscular Volume 86, Mean Corpuscular Hemoglobin 25.8L, Mean Corpuscular Hemoglobin Concent 30.1L, Red Cell Distribution Width 17.7H, Platelet Count 345, Mean Platelet Volume 6.3L, Neutrophils (%) (Auto) 83.9H, Lymphocytes (%) (Auto) 8.0L, Monocytes (%) (Auto) 7.3, Eosinophils (%) (Auto) 0.0, Basophils (%) (Auto) 0.8, Sodium Level 136, Potassium Level 4.4, Chloride Level 96L, Carbon Dioxide Level 28, Anion Gap 12, Blood Urea Nitrogen 35H, Creatinine 1.0H, Estimat Glomerular Filtration Rate , Glucose Level 149H, Calcium Level 9.5 Height (Feet): 5 Height (Inches): 2.00 Weight (Pounds): 210 Objective HEAD AND NECK: No JVP. No LAD. No thyromegaly. Extraocular movement intact. Pupils are reactive to light and accommodation. LUNGS: She has bilateral wheezing. CARDIAC: Regular rate and rhythm. S1 and S2. No murmur. No rub. ABDOMEN: Soft, nontender, and nondistended. EXTREMITIES: No edema. No clubbing. No cyanosis. BLAIRE SANCHEZ November 14, 2016 21:28
[2016-11-15] VITALS: BP 136/48
[2016-11-15 04:00] VITALS: BP 119/52
[2016-11-15] MEDS: NovoLOG Insulin Flexpen SUBQ SCH ×3 (05:54→16:30)
[2016-11-15] MEDS: Glimepiride 1mg tab ORAL SCH (06:04)
[2016-11-15 06:31] LABS: BASOPHILS % (AUTO) 1.3 % (0.0-2.0); EOSINOPHILS % (AUTO) 1.5 % (0.0-3.0); LYMPHOCYTES % (AUTO) 22.7 % (20.0-45.0); MEAN CORPUSCULAR HGB CONC 30.3 G/DL (32.0-36.0); MEAN CORPUSCULAR VOLUME 86 FL (80-99); MEAN PLATELET VOLUME 6.5 FL (6.5-10.1); MONOCYTES % (AUTO) 10.7 % (1.0-10.0); NEUTROPHILS % (AUTO) 63.8 % (45.0-75.0); PLATELET COUNT 340 K/UL (150-450); RED CELL DISTRIBUTION WIDTH 17.7 % (11.6-14.8); WHITE BLOOD COUNT 13.2 K/UL (4.8-10.8)
[2016-11-15 06:46] LABS: ANION GAP 11 (5-15); CALCIUM 9.2 mg/dL (8.6-10.2); CARBON DIOXIDE 27 mEQ/L (20-30); CHLORIDE 98 mEQ/L (98-107); HEMOLYSIS 1; POTASSIUM 4.3 mEQ/L (3.4-4.9); SODIUM 136 mEQ/L (135-145)
[2016-11-15 08:00] VITALS: BP 117/47
[2016-11-15] MEDS: Augmentin 875mg Tab ORAL SCH (08:50)
[2016-11-15] MEDS: Heparin 5000 units/ml inj SUBQ SCH (08:57)
[2016-11-15] MEDS: Theophylline ER 100mg ORAL SCH (08:59)
[2016-11-15] MEDS ORDERED: PredniSONE 20mg tab ORAL SCH (09:00)
[2016-11-15] MEDS ORDERED: Tubing IV Secondary IV ONE (10:44)
[2016-11-15] MEDS ORDERED: NS 275ml ONE (10:44)
[2016-11-15 12:00] VITALS: BP 117/47
--- NOTE | 2016-11-15 14:07 | Nephrology Progress Note ---
Assessment/Plan Assessment 1. isovolemic hyponatremia, syndrome of inappropriate antidiuretic hormone secretion, possibly due to pneumonia. 2. Urinary tract infection. 3. Chronic obstructive pulmonary disease exacerbation. 4. Hypertension. 5. Diabetes. Plan plan free water restriction mix all ivpb with ns monitoring renal function and electrolyte avoid NSAID Subjective Subjective alert and awake sob and cough now is getting better Objective Objective Last 24 Hour Vital Signs Date Time Temp Pulse Resp B/P Pulse Ox O2 Delivery O2 Flow Rate FiO2 11/15/16 12:00 97.7 100 18 117/47 95 Room Air 11/15/16 09:00 95 117/47 11/15/16 08:27 Room Air 11/15/16 08:27 92 Room Air 21 11/15/16 08:00 97.7 95 17 117/47 90 Room Air 11/15/16 04:00 97.9 94 16 119/52 89 Room Air 11/15/16 00:00 97.7 102 17 136/48 92 Room Air 11/14/16 20:00 97.7 105 16 137/57 90 11/14/16 19:00 92 Room Air 21 11/14/16 19:00 Room Air 11/14/16 15:50 97.5 97 15 150/75 94 Room Air Intake and Output 11/14/16 11/15/16 19:00 07:00 Intake Total 1500 ml Balance 1500 ml Intake Oral 1500 ml # Voids 3 2 # Bowel Movements 1 Laboratory Tests 11/15/16 05:40: White Blood Count 13.2H, Red Blood Count 3.60L, Hemoglobin 9.3L, Hematocrit 30.9L, Mean Corpuscular Volume 86, Mean Corpuscular Hemoglobin 26.0L, Mean Corpuscular Hemoglobin Concent 30.3L, Red Cell Distribution Width 17.7H, Platelet Count 340, Mean Platelet Volume 6.5, Neutrophils (%) (Auto) 63.8, Lymphocytes (%) (Auto) 22.7, Monocytes (%) (Auto) 10.7H, Eosinophils (%) (Auto) 1.5, Basophils (%) (Auto) 1.3, Sodium Level 136, Potassium Level 4.3, Chloride Level 98, Carbon Dioxide Level 27, Anion Gap 11, Blood Urea Nitrogen 37H, Creatinine 1.0H, Estimat Glomerular Filtration Rate , Glucose Level 87, Calcium Level 9.2 Height (Feet): 5 Height (Inches): 2.00 Weight (Pounds): 210 Objective HEAD AND NECK: No JVP. No LAD. No thyromegaly. Extraocular movement intact. Pupils are reactive to light and accommodation. LUNGS: She has bilateral wheezing. CARDIAC: Regular rate and rhythm. S1 and S2. No murmur. No rub. ABDOMEN: Soft, nontender, and nondistended. EXTREMITIES: No edema. No clubbing. No cyanosis. BLAIRE SANCHEZ November 15, 2016 14:07
--- NOTE | 2016-11-15 14:39 | General Progress Note ---
Assessment/Plan Problem List: (1) Anemia ICD Codes: D64.9 - Anemia, unspecified SNOMED: 851418434 (2) Sepsis ICD Codes: A41.9 - Sepsis, unspecified organism SNOMED: 81496877 (3) Acute hypoxemic respiratory failure ICD Codes: J96.01 - Acute respiratory failure with hypoxia SNOMED: 136301977 (4) Tobacco abuse ICD Codes: Z72.0 - Tobacco use SNOMED: 545399032, 70126167 (5) Hypoxia ICD Codes: R09.02 - Hypoxemia SNOMED: 412218232, 51359329 (6) COPD exacerbation ICD Codes: J44.1 - Chronic obstructive pulmonary disease with (acute) exacerbation SNOMED: 433483992 (7) Community acquired pneumonia ICD Codes: J18.9 - Pneumonia, unspecified organism SNOMED: 648944457 Status: stable, progressing, tolerating diet Assessment/Plan o2 pulm tx abx ot pt diet dc home w hh per pt request Subjective Constitutional: Reports: weakness Allergies: Coded Allergies: No Known Allergies (Unverified , 06/17/12) All Systems: reviewed and negative except above Subjective o2nc sl sob Objective Last 24 Hour Vital Signs Date Time Temp Pulse Resp B/P Pulse Ox O2 Delivery O2 Flow Rate FiO2 11/15/16 12:00 97.7 100 18 117/47 95 Room Air 11/15/16 09:00 95 117/47 11/15/16 08:27 Room Air 11/15/16 08:27 92 Room Air 21 11/15/16 08:00 97.7 95 17 117/47 90 Room Air 11/15/16 04:00 97.9 94 16 119/52 89 Room Air 11/15/16 00:00 97.7 102 17 136/48 92 Room Air 11/14/16 20:00 97.7 105 16 137/57 90 11/14/16 19:00 92 Room Air 21 11/14/16 19:00 Room Air 11/14/16 15:50 97.5 97 15 150/75 94 Room Air Intake and Output 11/14/16 11/15/16 19:00 07:00 Intake Total 1500 ml Balance 1500 ml Intake Oral 1500 ml # Voids 3 2 # Bowel Movements 1 Laboratory Tests 11/15/16 05:40: White Blood Count 13.2H, Red Blood Count 3.60L, Hemoglobin 9.3L, Hematocrit 30.9L, Mean Corpuscular Volume 86, Mean Corpuscular Hemoglobin 26.0L, Mean Corpuscular Hemoglobin Concent 30.3L, Red Cell Distribution Width 17.7H, Platelet Count 340, Mean Platelet Volume 6.5, Neutrophils (%) (Auto) 63.8, Lymphocytes (%) (Auto) 22.7, Monocytes (%) (Auto) 10.7H, Eosinophils (%) (Auto) 1.5, Basophils (%) (Auto) 1.3, Sodium Level 136, Potassium Level 4.3, Chloride Level 98, Carbon Dioxide Level 27, Anion Gap 11, Blood Urea Nitrogen 37H, Creatinine 1.0H, Estimat Glomerular Filtration Rate , Glucose Level 87, Calcium Level 9.2 Height (Feet): 5 Height (Inches): 2.00 Weight (Pounds): 210 General Appearance: alert EENT: normal ENT inspection Neck: normal alignment Cardiovascular: normal peripheral pulses, normal rate, regular rhythm Respiratory/Chest: chest wall non-tender, lungs clear, normal breath sounds Abdomen: normal bowel sounds, non tender, soft Extremities: normal inspection Edema: no edema noted Arm (L), no edema noted Arm (R), no edema noted Leg (L), no edema noted Leg (R), no edema noted Pedal (L), no edema noted Pedal (R), no edema noted Generalized Neurologic: responsive, motor weakness Skin: normal pigmentation, warm/dry QAMAR WALLACE November 15, 2016 14:39
--- NOTE | 2016-11-15 15:52 | Infectious Diseases Prog Note ---
Assessment/Plan Problems: (1) Community acquired pneumonia Assessment & Plan: improved on zosyn , with sputum culture grew amaury albicans, most likely colonization. blood culture is negative , will continue oral augmantin to finish her course of therapy for 10 days total (2) COPD exacerbation Assessment & Plan: S/P large dose of steroids, and bronchodilators, recommend to taper and stop steroids (3) Hypoxia Assessment & Plan: due to the above, continue oxygen and bronchodilators, titrate oxygen as needed (4) Leukocytosis Assessment & Plan: suspect due to large dose of steroids, recommend to taper, blood culture is negative Subjective Constitutional: Reports: no symptoms HEENT: Reports: no symptoms Respiratory: Reports: no symptoms Cardiovascular: Reports: no symptoms Gastrointestinal/Abdominal: Reports: no symptoms Genitourinary: Reports: no symptoms Neurologic: Reports: no symptoms Psychiatric: Reports: no symptoms Skin: Reports: no symptoms Endocrine: Reports: no symptoms Allergies: Coded Allergies: No Known Allergies (Unverified , 06/17/12) Objective Vital Signs Last 24 Hour Vital Signs Date Time Temp Pulse Resp B/P Pulse Ox O2 Delivery O2 Flow Rate FiO2 11/15/16 12:00 97.7 100 18 117/47 95 Room Air 11/15/16 09:00 95 117/47 11/15/16 08:27 Room Air 11/15/16 08:27 92 Room Air 11/15/16 08:00 97.7 95 17 117/47 90 Room Air 11/15/16 04:00 97.9 94 16 119/52 89 Room Air 11/15/16 00:00 97.7 102 17 136/48 92 Room Air 11/14/16 20:00 97.7 105 16 137/57 90 11/14/16 19:00 92 Room Air 21 11/14/16 19:00 Room Air 11/14/16 15:50 97.5 97 15 150/75 94 Room Air Height (Feet): 5 Height (Inches): 2.00 Weight (Pounds): 210 General Appearance: WD/WN, no acute distress HEENT: normocephalic, atraumatic, anicteric, mucous membranes moist Respiratory/Chest: chest wall non-tender, lungs clear, normal breath sounds, no respiratory distress, no accessory muscle use Cardiovascular: normal peripheral pulses, normal rate, regular rhythm, no gallop/murmur, no JVD Abdomen: normal bowel sounds, soft, non tender, no organomegaly, non distended , no mass Extremities: no cyanosis, no clubbing Skin: no rash, no lesions Laboratory Tests Test 11/15/16 05:40 White Blood Count 13.2 K/UL (4.8-10.8) H Red Blood Count 3.60 M/UL (4.20-5.40) L Hemoglobin 9.3 G/DL (12.0-16.0) L Hematocrit 30.9 % (37.0-47.0) L Mean Corpuscular Volume 86 FL (80-99) Mean Corpuscular Hemoglobin 26.0 PG (27.0-31.0) L Mean Corpuscular Hemoglobin Concent 30.3 G/DL (32.0-36.0) L Red Cell Distribution Width 17.7 % (11.6-14.8) H Platelet Count 340 K/UL (150-450) Mean Platelet Volume 6.5 FL (6.5-10.1) Neutrophils (%) (Auto) 63.8 % (45.0-75.0) Lymphocytes (%) (Auto) 22.7 % (20.0-45.0) Monocytes (%) (Auto) 10.7 % (1.0-10.0) H Eosinophils (%) (Auto) 1.5 % (0.0-3.0) Basophils (%) (Auto) 1.3 % (0.0-2.0) Sodium Level 136 mEQ/L (135-145) Potassium Level 4.3 mEQ/L (3.4-4.9) Chloride Level 98 mEQ/L (98-107) Carbon Dioxide Level 27 mEQ/L (20-30) Anion Gap 11 (5-15) Blood Urea Nitrogen 37 mg/dL (7-23) H Creatinine 1.0 mg/dL (0.5-0.9) H Estimat Glomerular Filtration Rate mL/min (>60) Glucose Level 87 mg/dL (74-106) Calcium Level 9.2 mg/dL (8.6-10.2) Current Medications Medications (Trade) Dose Ordered Sig/Ana Maria Route PRN Reason Start Time Stop Time Status Last Admin Dose Admin Albuterol/ Ipratropium (DuoNeb 0.5-3(2.5)mg/3ml) 3 ml Q4H PRN HHN dyspnea 11/10/16 18:30 11/15/16 18:29 Amlodipine Besylate (Norvasc) 10 mg DAILY ORAL 11/11/16 09:00 12/11/16 08:59 11/14/16 10:48 Amoxicillin/ Clavulanate Potassium (Augmentin) 875 mg EVERY 12 HOURS ORAL 11/14/16 21:00 11/21/16 20:59 11/15/16 08:50 Dextrose (Dextrose 50%) STAT PRN IV Hypoglycemia 11/11/16 19:00 12/11/16 18:59 Glimepiride (Amaryl) 2 mg ACBREAKFAST ORAL 11/11/16 06:30 12/11/16 06:29 11/15/16 06:04 Heparin Sodium (Porcine) (Heparin 5000 units/ml) 5,000 units EVERY 12 HOURS SUBQ 11/10/16 21:00 12/10/16 20:59 11/15/16 08:57 Insulin Aspart (NovoLOG) BEFORE MEALS AND HS SUBQ 11/11/16 21:00 12/11/16 20:59 11/14/16 06:22 Ketorolac Tromethamine (Toradol 30mg) 30 mg Q8H PRN IV Moderate Pain (Pain Scale 4-6) 11/10/16 18:30 11/15/16 18:29 Lorazepam (Ativan 2mg/ml 1ml) 0.5 mg Q4H PRN IV For Anxiety 11/10/16 18:30 11/17/16 18:29 Metformin HCl (Glucophage) 850 mg BID ORAL 11/11/16 09:00 12/11/16 08:59 11/15/16 08:51 Morphine Sulfate (Morphine Sulfate) 2 mg Q4H PRN IVP Severe Pain (Pain Scale 7-10) 11/10/16 18:30 11/17/16 18:29 Nitroglycerin (Ntg) 0.4 mg Q5M X 3 DOSES PRN SL Prn Chest Pain 11/10/16 18:30 12/10/16 18:29 Ondansetron HCl (Zofran) 4 mg Q6H PRN IVP Nausea & Vomiting 11/10/16 18:30 12/10/16 18:29 Pioglitazone HCl (Actos) 15 mg BID PO 5/6/17 09:00 12/11/16 08:59 11/15/16 08:57 Pneumococcal Polyvalent Vaccine (Pneumovax) 0.5 ml ONCE ONCE IM 11/15/16 16:30 11/15/16 16:31 Promethazine HCl/ Codeine (Phenergan with Codeine) 5 ml Q6H PRN ORAL cough 11/10/16 18:30 12/10/16 18:29 11/13/16 13:26 Temazepam (Restoril) 15 mg HSPRN PRN ORAL Insomnia 11/10/16 21:00 11/17/16 20:59 11/14/16 22:15 Theophylline (Sixto-Dur) 100 mg EVERY 12 HOURS ORAL 11/10/16 21:00 12/10/16 20:59 11/15/16 08:59 Rivka Mclean M.D. November 15, 2016 15:52
[2016-11-15 16:00] VITALS: BP 138/49
--- NOTE | 2016-11-15 16:01 | Pulmonology Progress Note ---
Assessment/Plan Problems: (1) Acute hypoxemic respiratory failure (2) COPD (chronic obstructive pulmonary disease) (3) COPD exacerbation (4) Chronic liver disease Assessment/Plan improving titrate fio2 to sat of 925 respiratory treatment dc steroids sliding scale insulin coverage. dc home today Subjective ROS Limited/Unobtainable: No Constitutional: Reports: no symptoms HEENT: Repors: no symptoms Respiratory: Reports: no symptoms Allergies: Coded Allergies: No Known Allergies (Unverified , 06/17/12) Objective Last 24 Hour Vital Signs Date Time Temp Pulse Resp B/P Pulse Ox O2 Delivery O2 Flow Rate FiO2 11/15/16 12:00 97.7 100 18 117/47 95 Room Air 11/15/16 09:00 95 117/47 11/15/16 08:27 Room Air 11/15/16 08:27 92 Room Air 21 11/15/16 08:00 97.7 95 17 117/47 90 Room Air 11/15/16 04:00 97.9 94 16 119/52 89 Room Air 11/15/16 00:00 97.7 102 17 136/48 92 Room Air 11/14/16 20:00 97.7 105 16 137/57 90 11/14/16 19:00 92 Room Air 21 11/14/16 19:00 Room Air Intake and Output 11/14/16 11/15/16 19:00 07:00 Intake Total 1500 ml Balance 1500 ml Intake Oral 1500 ml # Voids 3 2 # Bowel Movements 1 Objective General Appearance: WD/WN Lines, tubes and drains: peripheral HEENT: normocephalic, atraumatic Neck: non-tender, normal alignment Respiratory/Chest: chest wall non-tender, rhonchi, wheezing Cardiovascular/Chest: normal peripheral pulses Abdomen: normal bowel sounds Genitourinary/Rectal: normal genital exam Extremities: normal range of motion Skin Exam: normal pigmentation Laboratory Tests 11/15/16 05:40: White Blood Count 13.2H, Red Blood Count 3.60L, Hemoglobin 9.3L, Hematocrit 30.9L, Mean Corpuscular Volume 86, Mean Corpuscular Hemoglobin 26.0L, Mean Corpuscular Hemoglobin Concent 30.3L, Red Cell Distribution Width 17.7H, Platelet Count 340, Mean Platelet Volume 6.5, Neutrophils (%) (Auto) 63.8, Lymphocytes (%) (Auto) 22.7, Monocytes (%) (Auto) 10.7H, Eosinophils (%) (Auto) 1.5, Basophils (%) (Auto) 1.3, Sodium Level 136, Potassium Level 4.3, Chloride Level 98, Carbon Dioxide Level 27, Anion Gap 11, Blood Urea Nitrogen 37H, Creatinine 1.0H, Estimat Glomerular Filtration Rate , Glucose Level 87, Calcium Level 9.2 Current Medications Medications (Trade) Dose Ordered Sig/Ana Maria Route PRN Reason Start Time Stop Time Status Last Admin Dose Admin Albuterol/ Ipratropium (DuoNeb 0.5-3(2.5)mg/3ml) 3 ml Q4H PRN HHN dyspnea 11/10/16 18:30 11/15/16 18:29 Amlodipine Besylate (Norvasc) 10 mg DAILY ORAL 11/11/16 09:00 12/11/16 08:59 11/14/16 10:48 Amoxicillin/ Clavulanate Potassium (Augmentin) 875 mg EVERY 12 HOURS ORAL 11/14/16 21:00 11/21/16 20:59 11/15/16 08:50 Dextrose (Dextrose 50%) STAT PRN IV Hypoglycemia 11/11/16 19:00 12/11/16 18:59 Glimepiride (Amaryl) 2 mg ACBREAKFAST ORAL 11/11/16 06:30 12/11/16 06:29 11/15/16 06:04 Heparin Sodium (Porcine) (Heparin 5000 units/ml) 5,000 units EVERY 12 HOURS SUBQ 11/10/16 21:00 12/10/16 20:59 11/15/16 08:57 Insulin Aspart (NovoLOG) BEFORE MEALS AND HS SUBQ 11/11/16 21:00 12/11/16 20:59 11/14/16 06:22 Ketorolac Tromethamine (Toradol 30mg) 30 mg Q8H PRN IV Moderate Pain (Pain Scale 4-6) 11/10/16 18:30 11/15/16 18:29 Lorazepam (Ativan 2mg/ml 1ml) 0.5 mg Q4H PRN IV For Anxiety 11/10/16 18:30 11/17/16 18:29 Metformin HCl (Glucophage) 850 mg BID ORAL 11/11/16 09:00 12/11/16 08:59 11/15/16 08:51 Morphine Sulfate (Morphine Sulfate) 2 mg Q4H PRN IVP Severe Pain (Pain Scale 7-10) 11/10/16 18:30 11/17/16 18:29 Nitroglycerin (Ntg) 0.4 mg Q5M X 3 DOSES PRN SL Prn Chest Pain 11/10/16 18:30 12/10/16 18:29 Ondansetron HCl (Zofran) 4 mg Q6H PRN IVP Nausea & Vomiting 11/10/16 18:30 12/10/16 18:29 Pioglitazone HCl (Actos) 15 mg BID PO 11/11/16 09:00 12/11/16 08:59 11/15/16 08:57 Pneumococcal Polyvalent Vaccine (Pneumovax) 0.5 ml ONCE ONCE IM 11/15/16 16:30 11/15/16 16:31 Promethazine HCl/ Codeine (Phenergan with Codeine) 5 ml Q6H PRN ORAL cough 11/10/16 18:30 12/10/16 18:29 11/13/16 13:26 Temazepam (Restoril) 15 mg HSPRN PRN ORAL Insomnia 11/10/16 21:00 11/17/16 20:59 11/14/16 22:15 Theophylline (Sixto-Dur) 100 mg EVERY 12 HOURS ORAL 11/10/16 21:00 12/10/16 20:59 11/15/16 08:59 KYMBERLY JURADO November 15, 2016 16:01
[2016-11-15] MEDS ORDERED: AMOX TR-K CLV1 EAC2 ORAL (16:09)
[2016-11-15] MEDS ORDERED: GLIMEPIRIDE1 MG ORAL (16:11)
[2016-11-15] MEDS ORDERED: NOVOLOG100 UNITS1 (16:12)
[2016-11-15] MEDS ORDERED: DUONEB 0.5-3(2.53 ML HHN (16:14)
[2016-11-15] MEDS ORDERED: METFORMIN HCL850 M1 ORAL (16:15)
[2016-11-15] MEDS ORDERED: NITROGLYCERIN0.4 MG SL (16:16)
[2016-11-15] MEDS ORDERED: ACTOPLUS MET 11 EACH ORAL (16:17)
[2016-11-15] MEDS ORDERED: RESTORIL15 MG ORAL (16:18)
[2016-11-15] MEDS ORDERED: THEOPHYLLI80 MG/151 PO (16:20)
[2016-11-15] MEDS ORDERED: PROMETHAZINE-C118 M1 ORAL (16:23)
[2016-11-15] MEDS ORDERED: Pneumococcal Vaccine 25mcg/0.5ml IM ONE (16:30)
--- NOTE | 2016-11-16 15:24 | Discharge Summary ---
Discharge Summary Hospital Course Date of Admission November 10, 2016 at 16:07 Date of Discharge November 15, 2016 at 17:29 Admitting Diagnosis [facility] HPI Joan Ricks is a 71 year old female who was admitted on November 10, 2016 at 16:07 for [facility] Hospital Course [id number] Discharge Discharge Disposition Patient was discharged to Home with Home Health(06) Discharge Diagnoses: Lucretia Pop NP November 16, 2016 15:24
--- NOTE | 2016-11-17 04:48 | Discharge Summary 2 SIG ---
DATE OF ADMISSION: 11/10/2016 DATE OF DISCHARGE: 11/15/2016 CONSULTANTS: 1. Monika Sarmiento M.D. 2. Rivka Mclean M.D. 3. Brook Robin M.D. BRIEF HOSPITAL COURSE: The patient is a 71-year-old female, who apparently four days prior started having cold and was started on antibiotics. The patient became short of breath and presented to [place]. On evaluation at ED, chest x-ray showed no infiltrate. EKG showed no injury. Labs have slightly elevated. WBC and BNP was normal. She was given IV hydration, breathing treatments, and started on steroids and antibiotics and was admitted for COPD exacerbation and upper respiratory infection. She was followed by Dr. Sarmiento and Dr. Mclean. The patient had a failed Levaquin treatment as outpatient and was started on empiric antibiotic treatment with Zosyn. She was given respiratory treatments with bronchodilators and was started on IV steroids. Dr. Robin was consulted for evaluation of hyponatremia, sodium was 131. The patient had hyponatremia with syndrome of inappropriate antidiuretic hormone secretion possibly due to pneumonia, which she was given IV with normal saline and was given free water restriction. Blood culture did not isolate any growth. Sputum culture showed Heidy albicans most likely colonization. The patient was continued on oral Augmentin to finish her course of therapy for ten days. IV steroid was discontinued and the patient was discharged home with home health. FINAL DIAGNOSES: 1. Acute hypoxemic respiratory failure. 2. Acute chronic obstructive pulmonary disease exacerbation. 3. Chronic liver disease. 4. Leukocytosis secondary to steroids. 5. Hyponatremia with syndrome of inappropriate antidiuretic hormone secretion due to pneumonia. 6. Community-acquired pneumonia. 7. Tobacco abuse. 8. Sepsis. Jai Siddiqi D.O. I have been assigned to dictate discharge summary on this account and I was not involved in the patient's management. Lucretia Pop N.P. DR: Felix JOB#: [id number] CC: ETELVINA
== END 2016-11-15 17:29 | disposition home health service (06) | DRG 720 ==
LOC: ENRESERVDT → ENRESERVTM → EMR 15:50 → 4E 16:07 → EDBEDREQ 16:27
DX: A41.9 Sepsis, unspecified organism (principal); J96.01 Acute respiratory failure with hypoxia; J18.9 Pneumonia, unspecified organism; E22.2 Syndrome of inappropriate secretion of antidiuretic hormone; D64.9 Anemia, unspecified; E11.9 Type 2 diabetes mellitus without complications; J44.1 Chronic obstructive pulmonary disease with (acute) exacerbation; N39.0 Urinary tract infection, site not specified; D72.829 Elevated white blood cell count, unspecified; R09.02 Hypoxemia; M06.9 Rheumatoid arthritis, unspecified; K76.9 Liver disease, unspecified; T38.0X5A Adverse effect of glucocorticoids and synthetic analogues, initial encounter; F17.200 Nicotine dependence, unspecified, uncomplicated; Z87.891 Personal history of nicotine dependence; E66.01 Morbid (severe) obesity due to excess calories; Z23 Encounter for immunization
CPT/HCPCS: 36415; 71010; 80048; 80053; 81003; 82043; 82044; 82550; 82570; 82962; 83605; 83880; 83930; 83935; 84300; 84484; 85007; 85025; 85610; 85730; 87040; 87070; 87205; 89050; 90732; 93005; 94640; 94664; 94760; 97803; J1815; J2405

== ENCOUNTER 2017-07-12 09:01 | Inpatient (IN) | payer OTHER, MEDICARE ==
[~2017-07-12] VITALS: Ht 152.4 cm; Wt 93.0 kg
[~2017-07-12 09:01] MED LIST changes: +ACTOPLUS MET 11 EACH ORAL; +ACTOPLUS MET ORAL; +AMOX TR-K CLV1 EAC2 ORAL; +ATORVASTATIN CA40 MG ORAL; +DUONEB 0.5-3(2.53 ML HHN; +GABAPENTIN300 MG ORAL; +GLIMEPIRIDE2 MG ORAL; +HYZAAR 100-251 EACH ORAL; +LEVOFLOXACIN500 MG ORAL; +METFORMIN HCL850 M1 ORAL; +NITROGLYCERIN0.4 MG SL; +NORCO 5-325 TA1 EACH ORAL; +NOVOLOG100 UNITS1; +PROMETHAZINE-C118 M1 ORAL; +RESTORIL15 MG ORAL; +THEOPHYLLI80 MG/151 PO
[2017-07-12 09:17] VITALS: BP 108/52
--- NOTE | 2017-07-12 10:13 | Emergency Room Report ---
History of Present Illness General Chief Complaint: Upper Respiratory Illness Source: Patient, Family Member Present Illness HPI 72-year-old female walks in with 2 days of productive cough Endorsing bodyaches and chills Denies chest pain, shortness of breath, abdominal pain, nausea vomiting got the flu and pneumonia vaccine this year Allergies: Coded Allergies: No Known Allergies (Unverified , 06/17/12) Patient History Past Medical History: DM, HTN Past Surgical History: none Pertinent Family History: none Social History: Denies: smoking, alcohol use, drug use Now: No Immunizations: UTD Reviewed Nursing Documentation: PMH: Agreed, PSxH: Agreed Nursing Documentation-PMH Hx Hypertension: Yes Hx COPD: Yes - chronic bronchitis Hx Diabetes: Yes Hx Cancer: No Hx Gastrointestinal Problems: Yes Hx Neurological Problems: No Review of Systems All Other Systems: negative except mentioned in HPI Physical Exam Vital Signs Date Time Temp Pulse Resp B/P (MAP) Pulse Ox O2 Delivery O2 Flow Rate FiO2 07/12/17 09:07 98.1 82 18 116/66 86 Room Air Sp02 EP Interpretation: reviewed, normal General Appearance: normal inspection, well appearing, no apparent distress, alert, GCS 15, non-toxic Head: normocephalic, atraumatic Eyes: bilateral eye PERRL, bilateral eye EOMI ENT: normal ENT inspection, hearing grossly normal, normal pharynx, no angioedema, normal voice, TMs + canals normal, uvula midline, moist mucus membranes Neck: normal inspection, full range of motion, supple, thyroid normal, no meningismus, no bony tend Respiratory: normal inspection, no rhonchi, no respiratory distress, no retraction, no accessory muscle use, crackles, speaking full sentences Cardiovascular #1: regular rate, rhythm, no edema, no JVD, normal capillary refill Gastrointestinal: normal inspection, normal bowel sounds, non tender, soft, no mass, no peritonitis, non-distended, no guarding, no hernia, no pulsatile mass Genitourinary: no CVA tenderness Musculoskeletal: normal inspection, back normal, normal range of motion, no calf tenderness, pelvis stable, Lynette's Sign negative Neurologic: normal inspection, alert, oriented x3, responsive, 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, motor strength/tone normal, cerebellar normal, normal gait, speech normal Psychiatric: normal inspection, judgement/insight normal, mood/affect normal, no suicidal/homicidal ideation, no delusions Skin: normal inspection, normal color, no rash Lymphatic: normal inspection, no adenopathy Procedures Critical Care Time Critical Care Time CC time 30 minutes Critical care time endorsed for this patient for sepsis d/t right sided PNA Critical care time includes review of laboratory tests, imaging, review of EMR, review of paperwork from SNF (if available), discussion with patient and family (if available), review of code status/POLS (if available). Critical care time also likely includes assessment of fluid status, stabilization of vital signs, selection and dosing of appropriate antibiotics, selection and dosing of Aspirin/Plavix/Heparin/Lovenox, discussion with PMD/ attending hospitalist/amortization schedule clerk. Critical care time does not include any procedures which are documented elsewhere in this EMR. Medical Decision Making Diagnostic Impression: Primary Impression: Cough Additional Impressions: Pneumonia Sepsis Qualified Codes: A41.9 - Sepsis, unspecified organism Influenza-like illness ER Course Vital signs significant for tachycardia and mild hypoxia Chest x-ray shows bilateral interstitial disease with right-sided infiltrate Given symptoms of weakness, cough and dehydration likely pneumonia Given vital sign abnormality patient likely has sepsis Was given empiric antibiotics Cultures pending Labs significant for Leuks 30K - patient denies being on steroids at home for RA IV fluid bolus given patient also exhibiting signs of flu with myalgias and chills, was given Tamiflu in the ER Course to Dr. Siddiqi tele admit [id number] EKG Diagnostic Results Rate: tachycardiac Rhythm: NSR ST Segments: no acute changes ASA given to the pt in ED: No Rhythm Strip Diag. Results EP Interpretation: yes Rate: 65 Chest X-Ray Diagnostic Results Chest X-Ray Diagnostic Results : Chest X-Ray Ordered: Yes EP Interpretation: Yes Interpretation: no pneumothorax, no acute cardiopulmonary disease Impression: Other - Right sided PNA Electronically Signed by: Dr Kwame Maldonado MD Last Vital Signs Date Time Temp Pulse Resp B/P (MAP) Pulse Ox O2 Delivery O2 Flow Rate FiO2 07/12/17 09:07 98.1 82 18 116/66 86 Room Air Status: improved Disposition: ADMITTED INPATIENT Condition: Serious KWAME MALDONADO M.D. Jul 12, 2017 10:13
[2017-07-12 11:34] LABS: HEMATOCRIT 31.1 % (37.0-47.0); HEMOGLOBIN 9.3 G/DL (12.0-16.0); MEAN CORPUSCULAR VOLUME 77 FL (80-99); PLATELET COUNT 407 K/UL (150-450); RED BLOOD COUNT 4.05 M/UL (4.20-5.40); RED CELL DISTRIBUTION WIDTH 17.8 % (11.6-14.8)
[2017-07-12 11:37] LABS: WHITE BLOOD COUNT 32.6 K/UL (4.8-10.8)
--- NOTE | 2017-07-12 11:47 | Diagnostic Imaging Report ---
Indication: Shortness of breath Technique: One view of the chest Comparison: 11/10/2016 Findings: Interim development of extensive diffuse but predominantly perihilar interstitial and airspace disease within the right lung. Less extensive interstitial disease is seen in the left lung there is some atelectasis at both lung bases. The pleural spaces are clear. The heart size is normal. Impression: Right perihilar and diffuse interstitial and airspace consolidation, left-sided interstitial disease. Infiltrates versus edema-correlate with clinical findings
[2017-07-12 11:49] LABS: ANION GAP 12 mmol/L (5-15); BLOOD UREA NITROGEN 21 mg/dL (7-18); CALCIUM 7.9 MG/DL (8.5-10.1); CARBON DIOXIDE 24 MMOL/L (21-32); CHLORIDE 96 MMOL/L (98-107); CREATININE 1.2 MG/DL (0.55-1.30); POTASSIUM 3.8 MMOL/L (3.5-5.1); SODIUM 132 MMOL/L (136-145)
[2017-07-12 11:55] LABS: ALANINE AMINOTRANSFERASE 20 U/L (12-78); ALBUMIN/GLOBULIN RATIO 0.5 (1.0-2.7); ALKALINE PHOSPHATASE 85 U/L (46-116); ASPARTATE AMINO TRANSFERASE 26 U/L (15-37); BILIRUBIN,TOTAL 0.6 MG/DL (0.2-1.0)
[2017-07-12] MEDS ORDERED: Oseltamivir 75mg cap ORAL SCH (12:00)
[2017-07-12 12:22] VITALS: BP 132/72
[2017-07-12] MEDS ORDERED: Metoprolol Tartrate 12.5mg TAB ORAL ONE (13:00)
[2017-07-12] MEDS ORDERED: Miralax 17gm pkt ORAL PRN (14:45)
[2017-07-12] MEDS ORDERED: LORazepam Inj 2mg/ml 1ml IV PRN (14:45)
[2017-07-12] MEDS ORDERED: Morphine Sulfate 4mg/ml Inj IVP PRN (14:45)
--- NOTE | 2017-07-12 15:38 | Consultation ---
History of Present Illness General Date patient seen: Jul 11, 2017 Chief Complaint: Upper Respiratory Illness Referring physician: Dr Siddiqi Reason for Consultation: dyspnea Present Illness HPI 72-year-old female with hx of COPD, obesity walks in with 2 days of productive cough, body aches and chills, shortness of breath, abdominal pain, nausea vomiting. She had a cxr and CT chest in ER showing extensive RLL infiltrate. She was also tachycardic, secondary to sepsis. She is being admitted to telemetry for further management. Allergies: Coded Allergies: No Known Allergies (Unverified , 06/17/12) Medication History Scheduled Amlodipine Besylate* (Amlodipine Besylate*), 10 MG PO DAILY, (Reported) Amoxicillin/Potassium Clav 875-125 Mg Tab* (Amox Tr-K Clv 875-125 Mg Tab*), 1 TAB ORAL EVERY 12 HOURS, (Reported) Amoxicillin/Potassium Clav 875-125 Mg Tab* (Amox Tr-K Clv 875-125 Mg Tab*), 1 TAB ORAL EVERY 12 HOURS, (Reported) Atorvastatin Calcium* (Atorvastatin Calcium*), 40 MG ORAL BEDTIME, (Reported) Gabapentin* (Gabapentin*), 300 MG ORAL BEDTIME, (Reported) Glimepiride (Glimepiride), 2 MG ORAL BEFORE BREAKFAST, (Reported) Glimepiride* (Glimepiride*), 2 MG ORAL BEFORE BREAKFAST, (Reported) Levofloxacin (Levofloxacin*), 500 MG ORAL DAILY, (Reported) Losartan/Hydrochlorothiazide 100-25 Tablet (Hyzaar 100-25 Tablet), 1 TAB ORAL DAILY, (Reported) Metformin Hcl* (Metformin Hcl*), 850 MG ORAL BID, (Reported) Pioglitazone Hcl/Metformin Hcl (Actoplus Met 15 Mg-850 Mg Tab), 1 TAB ORAL TWICE A DAY, (Reported) Pioglitazone Hcl/Metformin Hcl (Actoplus Met 15 Mg-850 Mg Tab), 1 TAB ORAL TWICE A DAY, (Reported) Pioglitazone Hcl/Metformin Hcl (Actoplus Met 15 Mg-500 Mg Tab), 1 TAB ORAL TWICE A DAY, (Reported) Theophylline Anhydrous (Theophylline), 100 MG PO BID, (Reported) Scheduled PRN Albuterol Sulfate* (Albuterol Sulfate Hhn*), 3 ML INH Q4H PRN for Shortness of Breath, (Reported) Codeine/Promethazine Hcl* (Promethazine-Codeine Syrup*), 5 ML ORAL Q6H PRN for For Cough, (Reported) Hydrocodone Bit/Acetaminophen 5-325* (Coolidge 5-325*), 1 TAB ORAL DAILY PRN for Severe Pain (Pain Scale 7-10), (Reported) Ibuprofen* (Motrin*), 600 MG ORAL Q6H PRN for For Pain, (Reported) Temazepam* (Restoril*), 15 MG ORAL BEDTIME PRN for Insomnia, (Reported) Miscellaneous Medications Insulin Aspart (Novolog Flexpen), (Reported) Ipratropium/Albuterol Sulfate (DuoNeb 0.5-3(2.5)mg/3ml), 3 ML HHN, (Reported) Nitroglycerin (Nitroglycerin), 0.4 MG SL, (Reported) Patient History Healthcare decision maker Resuscitation status Advanced Directive on File Past Medical/Surgical History Past Medical/Surgical History: (1) Chronic liver disease (2) COPD (chronic obstructive pulmonary disease) Review of Systems All Other Systems: negative except mentioned in HPI Physical Exam General Appearance: WD/WN Lines, tubes and drains: peripheral HEENT: normocephalic Neck: non-tender, normal alignment Respiratory/Chest: chest wall non-tender, lungs clear Breasts: no masses Cardiovascular/Chest: normal peripheral pulses Abdomen: normal bowel sounds, non tender Genitourinary/Rectal: normal genital exam Extremities: normal range of motion 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 Last 24 Hour Vital Signs Date Time Temp Pulse Resp B/P (MAP) Pulse Ox O2 Delivery O2 Flow Rate FiO2 07/12/17 13:33 130 132/72 07/12/17 12:22 98.2 130 27 132/72 90 Nasal Cannula 4.0 07/12/17 09:17 98.1 105 24 108/52 89 Nasal Cannula 2.0 07/12/17 09:17 82 18 Room Air 07/12/17 09:07 98.1 82 18 116/66 86 Room Air Laboratory Tests Test 07/12/17 10:50 White Blood Count 32.6 K/UL (4.8-10.8) *H Red Blood Count 4.05 M/UL (4.20-5.40) L Hemoglobin 9.3 G/DL (12.0-16.0) L Hematocrit 31.1 % (37.0-47.0) L Mean Corpuscular Volume 77 FL (80-99) L Mean Corpuscular Hemoglobin 22.9 PG (27.0-31.0) L Mean Corpuscular Hemoglobin Concent 29.9 G/DL (32.0-36.0) L Red Cell Distribution Width 17.8 % (11.6-14.8) H Platelet Count 407 K/UL (150-450) Mean Platelet Volume 6.4 FL (6.5-10.1) L Neutrophils (%) (Auto) % (45.0-75.0) Lymphocytes (%) (Auto) % (20.0-45.0) Monocytes (%) (Auto) % (1.0-10.0) Eosinophils (%) (Auto) % (0.0-3.0) Basophils (%) (Auto) % (0.0-2.0) Differential Total Cells Counted 100 Neutrophils % (Manual) 87 % (45-75) H Lymphocytes % (Manual) 6 % (20-45) L Monocytes % (Manual) 4 % (1-10) Eosinophils % (Manual) 0 % (0-3) Basophils % (Manual) 0 % (0-2) Band Neutrophils 3 % (0-8) Platelet Estimate Adequate Platelet Morphology Normal Hypochromasia 1+ Anisocytosis 1+ Microcytosis Sodium Level 132 MMOL/L (136-145) L Potassium Level 3.8 MMOL/L (3.5-5.1) Chloride Level 96 MMOL/L (98-107) L Carbon Dioxide Level 24 MMOL/L (21-32) Anion Gap 12 mmol/L (5-15) Blood Urea Nitrogen 21 mg/dL (7-18) H Creatinine 1.2 MG/DL (0.55-1.30) Estimat Glomerular Filtration Rate mL/min (>60) Glucose Level 163 MG/DL (74-106) H Calcium Level 7.9 MG/DL (8.5-10.1) L Total Bilirubin 0.6 MG/DL (0.2-1.0) Aspartate Amino Transf (AST/SGOT) 26 U/L (15-37) Alanine Aminotransferase (ALT/SGPT) 20 U/L (12-78) Alkaline Phosphatase 85 U/L (46-116) Total Protein 8.7 G/DL (6.4-8.2) H Albumin 3.0 G/DL (3.4-5.0) L Globulin 5.7 g/dL Albumin/Globulin Ratio 0.5 (1.0-2.7) L Height (Feet): 5 Weight (Pounds): 205 Medications Current Medications Medications (Trade) Dose Ordered Sig/Ana Maria Route PRN Reason Start Time Stop Time Status Last Admin Dose Admin Acetaminophen (Tylenol) 650 mg Q4H PRN ORAL FEVER 07/12/17 14:45 08/11/17 14:44 UNV Albuterol/ Ipratropium (Albuterol/ Ipratropium) 3 ml EVERY 4 HOURS PRN HHN Shortness of Breath 07/12/17 14:45 07/17/17 14:44 UNV Amlodipine Besylate (Norvasc) 10 mg DAILY ORAL 07/13/17 09:00 08/12/17 08:59 UNV Cefepime HCl 2 gm/ Dextrose 110 ml @ 220 mls/hr EVERY 12 HOURS IV 07/12/17 21:00 07/19/17 20:59 UNV Dextrose (Dextrose 50%) STAT PRN IV Hypoglycemia 07/12/17 14:45 08/11/17 14:44 UNV Dextrose (Dextrose 50%) STAT PRN IV Hypoglycemia 07/12/17 14:45 08/11/17 14:44 UNV Gabapentin (Neurontin) 300 mg BEDTIME ORAL 07/12/17 21:00 08/11/17 20:59 UNV Glimepiride (Amaryl) 2 mg BEFORE BREAKFAST ORAL 07/13/17 06:30 08/12/17 06:29 UNV Heparin Sodium (Porcine) (Heparin 5000 units/ml) 5,000 units EVERY 12 HOURS SUBQ 07/12/17 21:00 08/11/17 20:59 UNV Insulin Aspart (NovoLOG) BEFORE MEALS AND HS SUBQ 07/12/17 16:30 08/11/17 16:29 UNV Lorazepam (Ativan 2mg/ml 1ml) 2 mg EVERY 2 HOURS PRN IV For Anxiety 07/12/17 14:45 07/19/17 14:44 UNV Morphine Sulfate (Morphine Sulfate) 4 mg EVERY 4 HOURS PRN IVP Severe Pain (Pain Scale 7-10) 07/12/17 14:45 07/19/17 14:44 UNV Ondansetron HCl (Zofran) 4 mg Q6H PRN IVP Nausea & Vomiting 07/12/17 14:45 08/11/17 14:44 UNV Oseltamivir Phosphate (Tamiflu) 75 mg STAT ORAL 07/12/17 12:00 07/17/17 11:59 07/12/17 12:09 Polyethylene Glycol (Miralax) 17 gm DAILYPRN PRN ORAL Constipation 07/12/17 14:45 08/11/17 14:44 UNV Promethazine HCl/ Codeine (Phenergan with Codeine) 5 ml Q4H PRN ORAL For Cough 07/12/17 14:45 08/11/17 14:44 UNV Sodium Chloride 1,000 ml @ 50 mls/hr Q20H IV 07/12/17 22:50 08/11/17 22:49 UNV Vancomycin HCl 1 gm/Dextrose 275 ml @ 183.3 mls/ hr Q24H IV 07/12/17 23:00 07/17/17 22:59 UNV Assessment/Plan Problem List: (1) Acute hypoxemic respiratory failure ICD Codes: J96.01 - Acute respiratory failure with hypoxia SNOMED: 937619812 (2) Sepsis ICD Codes: A41.9 - Sepsis, unspecified organism SNOMED: 99179519 Qualifiers: Qualified Codes: A41.9 - Sepsis, unspecified organism (3) COPD (chronic obstructive pulmonary disease) ICD Codes: J44.9 - Chronic obstructive pulmonary disease, unspecified SNOMED: 81645494 (4) Community acquired pneumonia ICD Codes: J18.9 - Pneumonia, unspecified organism SNOMED: 362820481 (5) Chronic liver disease ICD Codes: K76.9 - Liver disease, unspecified SNOMED: 550364959 Assessment/Plan respiratory treatment IV abx check cultures f/u wbc daily chest PT dvt prophylaxis KYMBERLY JURADO Jul 12, 2017 15:38
[2017-07-12 16:00] VITALS: BP 87/60
[2017-07-12] MEDS ORDERED: Sodium Chloride 500ML 500 ML IV ONE (17:00)
[2017-07-12] MEDS: NovoLOG Insulin Flexpen SUBQ SCH ×2 (17:30→21:55)
--- NOTE | 2017-07-12 18:30 | History and Physical Report ---
DATE OF ADMISSION: 07/12/2017 TIME SEEN: At 2 p.m. ATTENDING PHYSICIAN: Jai Siddiqi D.O. CONSULTANTS: 1. Monika Sarmiento M.D. 2. Dr. Olson. CHIEF COMPLAINT: Shortness breath, pneumonia, and sepsis. BRIEF HISTORY: The patient is a 72-year-old female, who lives at home. She came to my office last week with slight cough, given cough medicine. The patient went home, but was worse, came into [facility], diagnosed with right-sided pneumonia and sepsis and possible fluid and being currently short of breath in the ER, getting admitted shortly. PAST MEDICAL HISTORY: Hypertension, diabetes, and COPD. PAST SURGICAL HISTORY: Gallbladder. MEDICATIONS: Include Lopressor, Tamiflu, and levofloxacin. ALLERGIES: Denies. SOCIAL HISTORY: No smoking. No alcohol. No intravenous drug abuse. FAMILY HISTORY: Noncontributory. REVIEW OF SYSTEMS: No chest pain. Positive shortness of breath. No nausea or vomiting. No diarrhea. PHYSICAL EXAMINATION: GENERAL: Short of breath in the ER gurney, oriented x3, n slight distress secondary to short of breath. VITAL SIGNS: Temperature is 98, pulse 138, respirations 27, and blood pressure 132/72. CARDIOVASCULAR: No murmur. LUNGS: Poor exchange. ABDOMEN: Bowel sounds positive. Nontender. Nondistended. EXTREMITIES: No cyanosis or edema. NEUROLOGIC: The patient moves all extremities, slightly weak. LABORATORY DATA: Labs at this time show white count 32, hemoglobin and hematocrit 9.3/31, and platelets 407. Sodium 132, chloride 96, BUN 21, and glucose 163. Albumin 3.0. ASSESSMENT: 1. Right-sided pneumonia. 2. Sepsis. 3. Anemia. 4. Hypertension. 5. Diabetes. 6. Renal insufficiency. 7. Hyponatremia. 8. Tachycardia. PLAN: 1. Continue premedications. 2. O2 and pulmonary treatment. 3. Antibiotics as per Infectious Disease. 4. OT, PT, and dietary followup. 5. Blood pressure and blood sugar control. 6. Dr. Sarmiento, Dr. Olson, Dr. Vidal, and Dr. Robin to consult. Jai Siddiqi D.O. DR: VIKTOR JOB#: [id number] CC:
--- NOTE | 2017-07-12 19:00 | Cardiology Progress Note ---
Assessment/Plan Assessment/Plan The patient is seen and examined, full consult is dictated. Objective Last 24 Hour Vital Signs Date Time Temp Pulse Resp B/P (MAP) Pulse Ox O2 Delivery O2 Flow Rate FiO2 07/12/17 16:00 98.2 106 24 87/60 94 Nasal Cannula 4.0 07/12/17 13:33 130 132/72 07/12/17 12:22 98.2 130 27 132/72 90 Nasal Cannula 4.0 07/12/17 09:17 98.1 105 24 108/52 89 Nasal Cannula 2.0 07/12/17 09:17 82 18 Room Air 07/12/17 09:07 98.1 82 18 116/66 86 Room Air Laboratory Tests Test 07/12/17 10:50 White Blood Count 32.6 K/UL (4.8-10.8) *H Red Blood Count 4.05 M/UL (4.20-5.40) L Hemoglobin 9.3 G/DL (12.0-16.0) L Hematocrit 31.1 % (37.0-47.0) L Mean Corpuscular Volume 77 FL (80-99) L Mean Corpuscular Hemoglobin 22.9 PG (27.0-31.0) L Mean Corpuscular Hemoglobin Concent 29.9 G/DL (32.0-36.0) L Red Cell Distribution Width 17.8 % (11.6-14.8) H Platelet Count 407 K/UL (150-450) Mean Platelet Volume 6.4 FL (6.5-10.1) L Neutrophils (%) (Auto) % (45.0-75.0) Lymphocytes (%) (Auto) % (20.0-45.0) Monocytes (%) (Auto) % (1.0-10.0) Eosinophils (%) (Auto) % (0.0-3.0) Basophils (%) (Auto) % (0.0-2.0) Differential Total Cells Counted 100 Neutrophils % (Manual) 87 % (45-75) H Lymphocytes % (Manual) 6 % (20-45) L Monocytes % (Manual) 4 % (1-10) Eosinophils % (Manual) 0 % (0-3) Basophils % (Manual) 0 % (0-2) Band Neutrophils 3 % (0-8) Platelet Estimate Adequate Platelet Morphology Normal Hypochromasia 1+ Anisocytosis 1+ Microcytosis Sodium Level 132 MMOL/L (136-145) L Potassium Level 3.8 MMOL/L (3.5-5.1) Chloride Level 96 MMOL/L (98-107) L Carbon Dioxide Level 24 MMOL/L (21-32) Anion Gap 12 mmol/L (5-15) Blood Urea Nitrogen 21 mg/dL (7-18) H Creatinine 1.2 MG/DL (0.55-1.30) Estimat Glomerular Filtration Rate mL/min (>60) Glucose Level 163 MG/DL (74-106) H Calcium Level 7.9 MG/DL (8.5-10.1) L Total Bilirubin 0.6 MG/DL (0.2-1.0) Aspartate Amino Transf (AST/SGOT) 26 U/L (15-37) Alanine Aminotransferase (ALT/SGPT) 20 U/L (12-78) Alkaline Phosphatase 85 U/L (46-116) Total Protein 8.7 G/DL (6.4-8.2) H Albumin 3.0 G/DL (3.4-5.0) L Globulin 5.7 g/dL Albumin/Globulin Ratio 0.5 (1.0-2.7) L MERNA MCCLELLAN Jul 12, 2017 19:00
[2017-07-12 20:00] VITALS: BP 84/42
[2017-07-12] MEDS ORDERED: Vancomycin 1.5gm/D5W 250ml 250 ML IVPB ONE (20:00)
[2017-07-12] MEDS: Cefepime 2gm in D5W 55ml IVPB SCH (20:57)
[2017-07-12] MEDS ORDERED: Cefepime HCl 2 GM in D5W 110 ML IV SCH (21:00)
[2017-07-12] MEDS: Heparin 5000 units/ml inj SUBQ SCH (21:55)
[2017-07-12] MEDS ORDERED: Vancomycin 1 GM in D5W 275 ML IV SCH (23:00)
[2017-07-12 23:30] VITALS: BP 106/48
[2017-07-13] VITALS: BP 96/49
[2017-07-13] MEDS: Promethazine/Codeine 5ml UD ORAL PRN (00:11)
--- NOTE | 2017-07-13 00:45 | Consultation ---
DATE OF CONSULTATION: 07/12/2017 CARDIOLOGY CONSULTATION CONSULTING PHYSICIAN: Kendrick Vidal M.D. REFERRING PHYSICIAN: Jai Siddiqi D.O. REASON FOR CONSULTATION: Management of dyspnea and to rule out heart failure evident on chest x-ray. HISTORY OF PRESENT ILLNESS: The patient is a very unfortunate 72-year-old female, who presents to the hospital with 2 days history of productive cough, myalgia, and chills. On arrival to the emergency department, initial workup showed blood pressure 116/66 and pulse of 82. A 12-lead electrocardiogram showed sinus tachycardia, rate of [address] and T-wave abnormalities. The patient's chest x-ray was significant for pulmonary edema, infiltration versus congestive heart failure. The patient was admitted to telemetry for further evaluation and management. PAST MEDICAL HISTORY: Diabetes mellitus, hypertension, history of chronic bronchitis, history of COPD, and history of GERD. PAST SURGICAL HISTORY: None. LIST OF MEDICATIONS: 1. Albuterol 3 mL inhaler every 4 hours p.r.n. shortness of breath. 2. Amlodipine 10 mg p.o. daily. 3. Amoxicillin with clavulanate one tablet p.o. q.12 h. for 7 days. 4. Atorvastatin 40 mg p.o. at bedtime. 5. Promethazine-codeine syrup 5 mL q.6 h. p.r.n. cough. 6. Gabapentin 300 mg at bedtime. 7. Glimepiride 2 mg q.a.m. 8. Hydrocodone-acetaminophen 5/325 mg one tablet daily p.r.n. severe pain. 9. Ibuprofen 600 mg q.6 h. p.r.n. pain. 10. Insulin aspirate. 11. DuoNeb 3 mL HHN daily. 12. Levofloxacin 500 mg daily for 5 days. 13. Hyzaar 100/325 mg one tablet daily. 14. Metformin 850 mg twice daily. 15. Nitroglycerin 0.4 mg sublingual. 16. Actoplus 15/850 mg one tablet twice daily. 17. Temazepam 15 mg at bedtime p.r.n. insomnia. 18. Theophylline 100 mg p.o. twice daily. FAMILY HISTORY: No premature coronary artery disease in first-degree relatives. SOCIAL HISTORY: Denies any history of tobacco, alcohol, or illicit drug use. REVIEW OF SYSTEMS: HEENT: Denies any headache, diplopia, or blurred vision. CONSTITUTIONAL: Generalized weakness. She had fever and chills. CARDIOVASCULAR: Denies any chest pain. Complains of shortness of breath. Denies any PND, orthopnea, or leg swelling. PULMONARY: Shortness of breath and productive cough, but no hemoptysis. GASTROINTESTINAL: Denies any nausea, vomiting, diarrhea, constipation, abdominal pain, or GI bleed. GENITOURINARY: Denies any hematuria, dysuria, or incontinence. NEUROLOGIC: Denies any motor dysfunction, sensory deficit, or altered speech. PHYSICAL EXAMINATION: VITAL SIGNS: Blood pressure 116/66, respirations of 18, pulse of 82, and temperature 98.1 degrees Fahrenheit. GENERAL: The patient is a very unfortunate, 72-year-old female, who is on non-rebreather mask and [id number] respiratory distress. HEENT: Atraumatic and normocephalic. Anicteric. Pupils are equal, round, and reactive to light and accommodation. Periorbital edema is evident. NECK: JVP is less than 5 cm. No carotid bruit. Carotid upstrokes 2+ bilaterally. CARDIOVASCULAR: Normal S1 and S2. Regular rate and rhythm. Tachycardic. No murmurs, gallops, or rubs. LUNGS: Bilateral crackles, mostly in the basilar parts. ABDOMEN: Soft, nontender, and nondistended. No hepatosplenomegaly. Positive bowel sounds. EXTREMITIES: No evidence of edema, clubbing, or cyanosis. IMAGING DATA: Chest x-ray showed right perihilar diffuse interstitial and airspace consolidation, left-sided interstitial disease. Infiltrate versus edema, correlate with clinical findings. LABORATORY FINDINGS: WBC is 32.6, hemoglobin 9.3, hematocrit 31.1, and platelet count 407. Sodium 132, potassium is 3.8, chloride 96, bicarbonate 24, BUN of 21, and creatinine 1.2. Calcium 7.9. Glucose is 163. ASSESSMENT AND PLAN: The patient is a very unfortunate 72-year-old lady, was seen in Cardiology consultation at the request of Dr. Siddiqi. 1. Dyspnea, most likely due to community-acquired pneumonia. However, chest x-ray is showing pulmonary edema. Clinical examination is also significant for bibasilar crackles. We would to rule out cardiogenic pulmonary edema by obtaining 2D echocardiography. Bata-natriuretic peptide is also ordered. 2. Further diagnostic and therapeutic decision will be based on the results of the above tests. 3. History of hypertension. 4. History of diabetes mellitus. 5. History of chronic obstructive pulmonary disease. I would like to thank, Dr. Siddiqi, for the courtesy of this consultation. Kendrick Vidal M.D. DR: TERRY JOB#: [id number] CC:
[2017-07-13 04:00] VITALS: BP 75/51
[2017-07-13] MEDS: Glimepiride 1mg tab ORAL SCH (06:05)
[2017-07-13] MEDS: NovoLOG Insulin Flexpen SUBQ SCH ×4 (06:09→21:09)
[2017-07-13 07:35] LABS: HEMATOCRIT 28.8 % (37.0-47.0); HEMOGLOBIN 8.6 G/DL (12.0-16.0); MEAN CORPUSCULAR VOLUME 78 FL (80-99); PLATELET COUNT 382 K/UL (150-450); RED BLOOD COUNT 3.71 M/UL (4.20-5.40); RED CELL DISTRIBUTION WIDTH 17.7 % (11.6-14.8)
[2017-07-13 07:44] LABS: WHITE BLOOD COUNT 41.3 K/UL (4.8-10.8)
[2017-07-13 08:00] VITALS: BP 143/61
[2017-07-13] MEDS: Albuterol/Ipratropium 3ml neb HHN PRN (08:00)
[2017-07-13] MEDS ORDERED: Vancomycin 750mg/NS 250ml IVPB SCH (08:00)
[2017-07-13] MEDS: Heparin 5000 units/ml inj SUBQ SCH ×2 (08:40→20:59)
[2017-07-13 08:52] LABS: ALBUMIN 2.7 G/DL (3.4-5.0); ANION GAP 12 mmol/L (5-15); BLOOD UREA NITROGEN 25 mg/dL (7-18); CALCIUM 7.9 MG/DL (8.5-10.1); CARBON DIOXIDE 21 MMOL/L (21-32); CHLORIDE 99 MMOL/L (98-107); CREATININE 1.2 MG/DL (0.55-1.30); PHOSPHORUS 2.9 MG/DL (2.5-4.9); POTASSIUM 3.8 MMOL/L (3.5-5.1); SODIUM 132 MMOL/L (136-145)
[2017-07-13 09:33] LABS: ANION GAP 11 mmol/L (5-15); BLOOD UREA NITROGEN 28 mg/dL (7-18); CALCIUM 7.8 MG/DL (8.5-10.1); CARBON DIOXIDE 23 MMOL/L (21-32); CHLORIDE 99 MMOL/L (98-107); CREATININE 1.2 MG/DL (0.55-1.30); POTASSIUM 3.9 MMOL/L (3.5-5.1); SODIUM 133 MMOL/L (136-145)
[2017-07-13 12:00] VITALS: BP 131/61
--- NOTE | 2017-07-13 13:27 | Diagnostic Imaging Report ---
Clinical Indication: Hemoptysis, abnormal chest radiograph, productive cough Technique: Spiral acquisitions obtained through the chest. No IV contrast utilized, referring physician request. Multiplanar reconstructions generated. Total dose length product 902.03 mGycm. CTDIvol(s) 27.52 mGy. Dose reduction achieved using automated exposure control Comparison: Reference made to chest radiograph 07/12/2017 Findings: There is dense consolidation involving essentially the entire right lower lobe. Air bronchograms are seen throughout the consolidated lung, and the bronchi remain patent There is trace pleural fluid. Atelectatic changes versus scarring are seen at the left lung base. Bullae are seen in the upper lobes bilaterally. A parenchymal calcification is seen within the consolidated right lower lobe. There are also multiple calcified right hilar lymph nodes. There is some atelectasis and bronchiectasis within the right middle lobe. The heart is normal in size. No pericardial effusion. There are aortic and coronary arterial calcifications. Enlarged mediastinal lymph nodes are demonstrated, largest a paratracheal node measuring 3 cm long axis dimension. Included portions of the thyroid are unremarkable. No axillary or chest wall mass or adenopathy. The bones demonstrate degenerative spondylosis changes. The included upper abdominal anatomy is unremarkable Impression: Complete consolidation of the right lower lobe. Most likely reflects lobar pneumonia. The possibility of an underlying mass lesion should also be considered. Mediastinal lymphadenopathy. This is nonspecific, could be reactive or neoplastic Left lower lobe, right middle lobe bronchiectasis and atelectasis COPD changes Trace right pleural effusion The CT scanner at [facility] is accredited by the [employer] and the scans are performed using protocols designed to limit radiation exposure to as low as reasonably achievable to attain images of sufficient resolution adequate for diagnostic evaluation.
--- NOTE | 2017-07-13 14:35 | General Progress Note ---
Assessment/Plan Problem List: (1) Community acquired pneumonia ICD Codes: J18.9 - Pneumonia, unspecified organism SNOMED: 694430925 (2) COPD exacerbation ICD Codes: J44.1 - Chronic obstructive pulmonary disease with (acute) exacerbation SNOMED: 355409747 (3) Acute hypoxemic respiratory failure ICD Codes: J96.01 - Acute respiratory failure with hypoxia SNOMED: 797169840 (4) Leukocytosis ICD Codes: D72.829 - Elevated white blood cell count, unspecified SNOMED: 053201525, 716471213 (5) Influenza-like illness ICD Codes: R69 - Illness, unspecified SNOMED: 35288980 (6) Cough ICD Codes: R05 - Cough SNOMED: 29367225 (7) Sepsis ICD Codes: A41.9 - Sepsis, unspecified organism SNOMED: 59741754 Qualifiers: Qualified Codes: A41.9 - Sepsis, unspecified organism (8) Pneumonia ICD Codes: J18.9 - Pneumonia SNOMED: 759928199 Status: stable, progressing, tolerating diet Assessment/Plan o2 pulm tx abx ot pt diet cbc bmp am Subjective Allergies: Coded Allergies: No Known Allergies (Unverified , 06/17/12) All Systems: reviewed and negative except above Subjective o2 mask sleepy Objective Last 24 Hour Vital Signs Date Time Temp Pulse Resp B/P (MAP) Pulse Ox O2 Delivery O2 Flow Rate FiO2 07/13/17 12:00 105 07/13/17 12:00 97.8 103 22 131/61 90 Simple Mask 4.0 07/13/17 08:40 113 143/61 07/13/17 08:10 113 22 90 Venturi Mask 8.0 40 07/13/17 08:00 97.5 113 22 143/61 100 Simple Mask 4.0 07/13/17 08:00 108 24 89 Simple Mask 5.0 40 07/13/17 08:00 120 07/13/17 07:30 103 24 Simple Mask 5.0 40 07/13/17 04:00 97.0 109 18 75/51 92 07/13/17 04:00 109 07/13/17 00:00 114 07/13/17 00:00 97.3 105 18 96/49 93 07/12/17 23:30 102 106/48 07/12/17 20:00 106 07/12/17 20:00 97.3 105 18 84/42 94 Room Air 07/12/17 16:00 98.2 106 24 87/60 94 Nasal Cannula 4.0 Intake and Output 07/12/17 07/13/17 19:00 07:00 Intake Total 240 ml 2155 ml Balance 240 ml 2155 ml Intake Oral 240 ml 400 ml IV Total 1755 ml # Voids 2 # Bowel Movements 1 2 Laboratory Tests 07/12/17 20:30: Pro-B-Type Natriuretic Peptide 3920H 07/13/17 06:25: White Blood Count 41.3*H, Red Blood Count 3.71L, Hemoglobin 8.6L, Hematocrit 28.8L, Mean Corpuscular Volume 78L, Mean Corpuscular Hemoglobin 23.2L, Mean Corpuscular Hemoglobin Concent 29.9L, Red Cell Distribution Width 17.7H, Platelet Count 382, Mean Platelet Volume 6.8, Neutrophils (%) (Auto) , Lymphocytes (%) (Auto) , Monocytes (%) (Auto) , Eosinophils (%) (Auto) , Basophils (%) (Auto) , Differential Total Cells Counted 100, Neutrophils % ( Manual) 77H, Lymphocytes % (Manual) 6L, Monocytes % (Manual) 5, Eosinophils % ( Manual) 0, Basophils % (Manual) 0, Band Neutrophils 12H, Platelet Estimate Adequate, Platelet Morphology Normal, Hypochromasia 1+, Anisocytosis 1+, Microcytosis 1+, Sodium Level 132L, Potassium Level 3.8, Chloride Level 99, Carbon Dioxide Level 21, Anion Gap 12, Blood Urea Nitrogen 25H, Creatinine 1.2, Estimat Glomerular Filtration Rate , Glucose Level 110H, Calcium Level 7.9L, Phosphorus Level 2.9, Albumin 2.7L Height (Feet): 5 Height (Inches): 0.00 Weight (Pounds): 205 General Appearance: lethargic EENT: normal ENT inspection Neck: normal alignment Cardiovascular: normal peripheral pulses, normal rate, regular rhythm Respiratory/Chest: chest wall non-tender, decreased breath sounds Abdomen: normal bowel sounds, non tender, soft Extremities: normal inspection Edema: no edema noted Arm (L), no edema noted Arm (R), no edema noted Leg (L), no edema noted Leg (R), no edema noted Pedal (L), no edema noted Pedal (R), no edema noted Generalized Neurologic: motor weakness Skin: normal pigmentation, warm/dry QAMAR WALLACE Jul 13, 2017 14:35
--- NOTE | 2017-07-13 15:44 | Consultation ---
DATE OF CONSULTATION: 07/13/2017 INFECTIOUS DISEASES CONSULTATION REASON FOR CONSULTATION: Pneumonia. HISTORY OF PRESENT ILLNESS: The patient is a 72-year-old female admitted yesterday because of cough. The patient says that around one month ago she had upper respiratory infection, flu symptoms. She had a cough since then that increased around two days ago and also had chills and malaise at the time of admission. Cough is productive and it is bloody. No significant fever. The patient has some intentional weight loss by diet. She is also concerned about getting flu from an neighbor that flu symptoms two weeks ago. She had pneumonia vaccine and flu vaccine this year. PAST MEDICAL HISTORY: Diabetes mellitus type 2, hypertension, and chronic obstructive pulmonary disease. ALLERGIES: No known drug allergies. MEDICATIONS: Getting amlodipine, vancomycin, , gabapentin, heparin, cefepime, insulin, sodium chloride, Protonix, Zofran, MiraLAX, Tylenol, DuoNeb inhaler, and got a dose of Tamiflu in the ER. SOCIAL HISTORY: Single. Lives with her child. Smoker, 5 cigarettes a day and before it was one pack a day. Used drugs at young age. No alcohol abuse. REVIEW OF SYSTEMS: Productive cough with blood in it. Constipation. No other symptoms. PHYSICAL EXAMINATION: GENERAL APPEARANCE: No acute distress, obese. VITAL SIGNS: Temperature 97.5 degrees, pulse 113, and blood pressure 143/61. HEAD AND NECK: Getting oxygen by mask. Perdido conjunctivae. HEART: Regular. LUNGS: Clear with decreased sound. ABDOMEN: Soft and nontender. EXTREMITIES: No edema. LABORATORY AND DIAGNOSTIC DATA: WBC 41.3, hemoglobin 8.6, . Sodium 132, potassium 3.8, chloride 99, bicarbonate 21, BUN 25, and creatinine 1.2. Chest x-ray showed right perihilar and diffuse interstitial and airspace consolidation, left-sided interstitial disease, infiltrates versus edema. IMPRESSION: 1. Sepsis with leukocytosis. 2. Tachycardia secondary to pneumonia. 3. Chronic obstructive pulmonary disease. 4. Exposure to influenza. 5. Anemia. 6. Diabetes mellitus. 7. Hypertension. RECOMMEND: Continue vancomycin and Zosyn. Add Tamiflu. We will obtain CT scan of the chest. We will followup cultures including sputum and blood cultures. We will followup influenza A and B test. I thank, Dr. Jai Siddiqi, for involving me in the care of this patient. Josué Parks M.D. DR: SHAHRZAD JOB#: [id number] CC:
[2017-07-13] MEDS: Oseltamivir 75mg cap ORAL SCH ×2 (15:59→21:00)
[2017-07-13 16:00] VITALS: BP 111/40
--- NOTE | 2017-07-13 16:09 | Pulmonology Progress Note ---
Assessment/Plan Problems: (1) Acute hypoxemic respiratory failure (2) Sepsis (3) COPD (chronic obstructive pulmonary disease) (4) Community acquired pneumonia (5) Chronic liver disease Assessment/Plan wbc higher continue cefepime, vancomycin and Tamiflue respiratory treatment keep in teli until tachycardia resolves Subjective ROS Limited/Unobtainable: No Constitutional: Reports: no symptoms HEENT: Repors: no symptoms Respiratory: Reports: no symptoms Allergies: Coded Allergies: No Known Allergies (Unverified , 06/17/12) Objective Last 24 Hour Vital Signs Date Time Temp Pulse Resp B/P (MAP) Pulse Ox O2 Delivery O2 Flow Rate FiO2 07/13/17 12:00 105 07/13/17 12:00 97.8 103 22 131/61 90 Simple Mask 4.0 07/13/17 08:40 113 143/61 07/13/17 08:10 113 22 90 Venturi Mask 8.0 40 07/13/17 08:00 97.5 113 22 143/61 100 Simple Mask 4.0 07/13/17 08:00 108 24 89 Simple Mask 5.0 40 07/13/17 08:00 120 07/13/17 07:30 103 24 Simple Mask 5.0 40 07/13/17 04:00 97.0 109 18 75/51 92 07/13/17 04:00 109 07/13/17 00:00 114 07/13/17 00:00 97.3 105 18 96/49 93 07/12/17 23:30 102 106/48 07/12/17 20:00 106 07/12/17 20:00 97.3 105 18 84/42 94 Room Air Intake and Output 07/12/17 07/13/17 19:00 07:00 Intake Total 240 ml 2155 ml Balance 240 ml 2155 ml Intake Oral 240 ml 400 ml IV Total 1755 ml # Voids 2 # Bowel Movements 1 2 General Appearance: WD/WN HEENT: normocephalic, atraumatic Respiratory/Chest: chest wall non-tender, lungs clear Breasts: no masses Cardiovascular: normal peripheral pulses Abdomen: normal bowel sounds, soft, non tender Genitourinary: normal external genitalia Extremities: no cyanosis 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/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: 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 grossly normal, no motor/sensory deficits Laboratory Tests 07/12/17 20:30: Pro-B-Type Natriuretic Peptide 3920H 07/13/17 06:25: White Blood Count 41.3*H, Red Blood Count 3.71L, Hemoglobin 8.6L, Hematocrit 28.8L, Mean Corpuscular Volume 78L, Mean Corpuscular Hemoglobin 23.2L, Mean Corpuscular Hemoglobin Concent 29.9L, Red Cell Distribution Width 17.7H, Platelet Count 382, Mean Platelet Volume 6.8, Neutrophils (%) (Auto) , Lymphocytes (%) (Auto) , Monocytes (%) (Auto) , Eosinophils (%) (Auto) , Basophils (%) (Auto) , Differential Total Cells Counted 100, Neutrophils % ( Manual) 77H, Lymphocytes % (Manual) 6L, Monocytes % (Manual) 5, Eosinophils % ( Manual) 0, Basophils % (Manual) 0, Band Neutrophils 12H, Platelet Estimate Adequate, Platelet Morphology Normal, Hypochromasia 1+, Anisocytosis 1+, Microcytosis 1+, Sodium Level 132L, Potassium Level 3.8, Chloride Level 99, Carbon Dioxide Level 21, Anion Gap 12, Blood Urea Nitrogen 25H, Creatinine 1.2, Estimat Glomerular Filtration Rate , Glucose Level 110H, Calcium Level 7.9L, Phosphorus Level 2.9, Albumin 2.7L Current Medications Medications (Trade) Dose Ordered Sig/Ana Maria Route PRN Reason Start Time Stop Time Status Last Admin Dose Admin Acetaminophen (Tylenol) 650 mg Q4H PRN ORAL FEVER 07/12/17 14:45 08/11/17 14:44 07/13/17 08:58 Albuterol/ Ipratropium (Albuterol/ Ipratropium) 3 ml Q4H PRN HHN Shortness of Breath 07/12/17 14:45 07/17/17 14:44 07/13/17 08:00 Amlodipine Besylate (Norvasc) 10 mg DAILY ORAL 07/13/17 09:00 08/12/17 08:59 Cefepime HCl 2 gm/ Dextrose 55 ml @ 110 mls/hr Q24H IVPB 07/12/17 18:30 07/19/17 18:29 07/12/17 20:57 Dextrose (Dextrose 50%) STAT PRN IV Hypoglycemia 07/12/17 14:45 08/11/17 14:44 Gabapentin (Neurontin) 300 mg BEDTIME ORAL 07/12/17 21:00 08/11/17 20:59 07/12/17 21:53 Glimepiride (Amaryl) 2 mg BEFORE BREAKFAST ORAL 07/13/17 06:30 08/12/17 06:29 07/13/17 06:05 Heparin Sodium (Porcine) (Heparin 5000 units/ml) 5,000 units EVERY 12 HOURS SUBQ 07/12/17 21:00 08/11/17 20:59 07/12/17 21:55 Insulin Aspart (NovoLOG) BEFORE MEALS AND HS SUBQ 07/12/17 17:30 08/11/17 17:29 07/13/17 06:09 Ondansetron HCl (Zofran) 4 mg Q6H PRN IVP Nausea & Vomiting 07/12/17 14:45 08/11/17 14:44 Oseltamivir Phosphate (Tamiflu) 75 mg TWICE A DAY ORAL 07/13/17 13:00 07/18/17 12:59 Polyethylene Glycol (Miralax) 17 gm DAILYPRN PRN ORAL Constipation 07/12/17 14:45 08/11/17 14:44 Promethazine HCl/ Codeine (Phenergan with Codeine) 5 ml Q4H PRN ORAL For Cough 07/12/17 14:45 08/11/17 14:44 07/13/17 00:11 Vancomycin HCl (Vanco rx to dose) 1 ea DAILY PRN MISC PRN RX TO DOSE PROTOCOL 07/12/17 17:45 08/11/17 17:44 Vancomycin/Sodium Chloride 250 ml @ 166.667 mls/hr Q24H IVPB 07/14/17 08:00 07/19/17 23:59 KYMBERLY JURADO Jul 13, 2017 16:09
[2017-07-13] MEDS: Cefepime 2gm in D5W 55ml IVPB SCH (18:56)
--- NOTE | 2017-07-13 19:52 | Cardiology Progress Note ---
Assessment/Plan Assessment/Plan 1. Dyspnea, most likely due to community-acquired pneumonia. Echocardiography reveals normal LV systolic function with LVEF at 65%. 2. Severe pulmonary HTN by echo, ? due to underlying COPD. 3. History of hypertension. 4. History of diabetes mellitus. Subjective Subjective Sinus tachycardia at 111. Objective Last 24 Hour Vital Signs Date Time Temp Pulse Resp B/P (MAP) Pulse Ox O2 Delivery O2 Flow Rate FiO2 07/13/17 16:00 98 07/13/17 16:00 97.9 105 20 111/40 98 Venturi Mask 8.0 40 07/13/17 12:00 105 07/13/17 12:00 97.8 103 22 131/61 90 Simple Mask 4.0 07/13/17 08:40 113 143/61 07/13/17 08:10 113 22 90 Venturi Mask 8.0 40 07/13/17 08:00 97.5 113 22 143/61 100 Simple Mask 4.0 07/13/17 08:00 108 24 89 Simple Mask 5.0 40 07/13/17 08:00 120 07/13/17 07:30 103 24 Simple Mask 5.0 40 07/13/17 04:00 97.0 109 18 75/51 92 07/13/17 04:00 109 07/13/17 00:00 114 07/13/17 00:00 97.3 105 18 96/49 93 07/12/17 23:30 102 106/48 07/12/17 20:00 106 07/12/17 20:00 97.3 105 18 84/42 94 Room Air Intake and Output 07/12/17 07/13/17 19:00 07:00 Intake Total 240 ml 2155 ml Balance 240 ml 2155 ml Intake Oral 240 ml 400 ml IV Total 1755 ml # Voids 2 # Bowel Movements 1 2 2D Echo: LVEF 65%, RVSP 60 mmHg, Mild MR, Grade I lVDD, Mild , NORMA at 1.5 cm2 Laboratory Tests Test 07/12/17 20:30 07/13/17 06:25 Pro-B-Type Natriuretic Peptide 3920 pg/mL (0-125) H White Blood Count 41.3 K/UL (4.8-10.8) *H Red Blood Count 3.71 M/UL (4.20-5.40) L Hemoglobin 8.6 G/DL (12.0-16.0) L Hematocrit 28.8 % (37.0-47.0) L Mean Corpuscular Volume 78 FL (80-99) L Mean Corpuscular Hemoglobin 23.2 PG (27.0-31.0) L Mean Corpuscular Hemoglobin Concent 29.9 G/DL (32.0-36.0) L Red Cell Distribution Width 17.7 % (11.6-14.8) H Platelet Count 382 K/UL (150-450) Mean Platelet Volume 6.8 FL (6.5-10.1) Neutrophils (%) (Auto) % (45.0-75.0) Lymphocytes (%) (Auto) % (20.0-45.0) Monocytes (%) (Auto) % (1.0-10.0) Eosinophils (%) (Auto) % (0.0-3.0) Basophils (%) (Auto) % (0.0-2.0) Differential Total Cells Counted 100 Neutrophils % (Manual) 77 % (45-75) H Lymphocytes % (Manual) 6 % (20-45) L Monocytes % (Manual) 5 % (1-10) Eosinophils % (Manual) 0 % (0-3) Basophils % (Manual) 0 % (0-2) Band Neutrophils 12 % (0-8) H Platelet Estimate Adequate Platelet Morphology Normal Hypochromasia 1+ Anisocytosis 1+ Microcytosis 1+ Sodium Level 132 MMOL/L (136-145) L Potassium Level 3.8 MMOL/L (3.5-5.1) Chloride Level 99 MMOL/L (98-107) Carbon Dioxide Level 21 MMOL/L (21-32) Anion Gap 12 mmol/L (5-15) Blood Urea Nitrogen 25 mg/dL (7-18) H Creatinine 1.2 MG/DL (0.55-1.30) Estimat Glomerular Filtration Rate mL/min (>60) Glucose Level 110 MG/DL (74-106) H Calcium Level 7.9 MG/DL (8.5-10.1) L Phosphorus Level 2.9 MG/DL (2.5-4.9) Albumin 2.7 G/DL (3.4-5.0) L Objective HEENT: Atraumatic and normocephalic. Anicteric. Pupils are equal, round, and reactive to light and accommodation. Periorbital edema is evident. NECK: JVP is less than 5 cm. No carotid bruit. Carotid upstrokes 2+ bilaterally. CARDIOVASCULAR: Normal S1 and S2. Regular rate and rhythm. Tachycardic. No murmurs, gallops, or rubs. LUNGS: Bilateral crackles, mostly in the basilar parts. ABDOMEN: Soft, nontender, and nondistended. No hepatosplenomegaly. Positive bowel sounds. EXTREMITIES: No evidence of edema, clubbing, or cyanosis. MERNA MCCLELLAN Jul 13, 2017 19:52
[2017-07-13 20:00] VITALS: BP 125/60
[2017-07-14] VITALS: BP 137/62
[2017-07-14 04:00] VITALS: BP 129/77
[2017-07-14] MEDS: NovoLOG Insulin Flexpen SUBQ SCH ×4 (06:30→21:55)
[2017-07-14] MEDS: Glimepiride 1mg tab ORAL SCH (06:38)
[2017-07-14 07:44] VITALS: BP 131/69
[2017-07-14] MEDS: Oseltamivir 75mg cap ORAL SCH (08:10)
[2017-07-14] MEDS: Vancomycin 750mg/NS 250ml IVPB SCH (08:10)
[2017-07-14] MEDS: Heparin 5000 units/ml inj SUBQ SCH ×2 (08:15→20:39)
[2017-07-14 08:51] LABS: HEMATOCRIT 29.7 % (37.0-47.0); HEMOGLOBIN 8.5 G/DL (12.0-16.0); MEAN CORPUSCULAR VOLUME 77 FL (80-99); PLATELET COUNT 407 K/UL (150-450); RED BLOOD COUNT 3.86 M/UL (4.20-5.40); RED CELL DISTRIBUTION WIDTH 17.7 % (11.6-14.8)
[2017-07-14 08:54] LABS: WHITE BLOOD COUNT 36.7 K/UL (4.8-10.8)
[2017-07-14 09:00] LABS: ANION GAP 11 mmol/L (5-15); BLOOD UREA NITROGEN 20 mg/dL (7-18); CALCIUM 8.3 MG/DL (8.5-10.1); CARBON DIOXIDE 22 MMOL/L (21-32); CHLORIDE 100 MMOL/L (98-107); CREATININE 0.9 MG/DL (0.55-1.30); POTASSIUM 3.7 MMOL/L (3.5-5.1); SODIUM 133 MMOL/L (136-145)
--- NOTE | 2017-07-14 09:14 | General Progress Note ---
Assessment/Plan Problem List: (1) Community acquired pneumonia ICD Codes: J18.9 - Pneumonia, unspecified organism SNOMED: 074405516 (2) COPD exacerbation ICD Codes: J44.1 - Chronic obstructive pulmonary disease with (acute) exacerbation SNOMED: 484321940 (3) Acute hypoxemic respiratory failure ICD Codes: J96.01 - Acute respiratory failure with hypoxia SNOMED: 170752365 (4) Leukocytosis ICD Codes: D72.829 - Elevated white blood cell count, unspecified SNOMED: 520270541, 942302399 (5) Influenza-like illness ICD Codes: R69 - Illness, unspecified SNOMED: 07691365 (6) Cough ICD Codes: R05 - Cough SNOMED: 85879220 (7) Sepsis ICD Codes: A41.9 - Sepsis, unspecified organism SNOMED: 47075336 Qualifiers: Qualified Codes: A41.9 - Sepsis, unspecified organism (8) Pneumonia ICD Codes: J18.9 - Pneumonia SNOMED: 939466263 Status: unchanged Assessment/Plan o2 pulm tx abx ot pt diet cbc bmp am Subjective Constitutional: Reports: weakness Respiratory: Reports: shortness of breath Allergies: Coded Allergies: No Known Allergies (Unverified , 06/17/12) All Systems: reviewed and negative except above Subjective sitting tired Objective Last 24 Hour Vital Signs Date Time Temp Pulse Resp B/P (MAP) Pulse Ox O2 Delivery O2 Flow Rate FiO2 07/14/17 08:10 110 131/69 07/14/17 07:44 98.2 110 16 131/69 92 Venturi Mask 8.0 07/14/17 07:41 105 07/14/17 04:00 97.9 77 16 129/77 99 07/14/17 04:00 98 07/14/17 00:00 97.3 99 20 137/62 90 07/14/17 00:00 95 07/13/17 20:00 100 07/13/17 20:00 97.7 102 20 125/60 91 07/13/17 19:00 98 24 Simple Mask 5.0 40 07/13/17 16:00 98 07/13/17 16:00 97.9 105 20 111/40 98 Venturi Mask 8.0 40 07/13/17 12:00 105 07/13/17 12:00 97.8 103 22 131/61 90 Simple Mask 4.0 Intake and Output 07/13/17 07/14/17 19:00 07:00 Intake Total 240 ml Output Total 600 ml Balance -360 ml Intake Oral 240 ml Output Urine Total 600 ml # Voids 3 Laboratory Tests 07/14/17 07:50: White Blood Count 36.7*H, Red Blood Count 3.86L, Hemoglobin 8.5L, Hematocrit 29.7L, Mean Corpuscular Volume 77L, Mean Corpuscular Hemoglobin 22.0L, Mean Corpuscular Hemoglobin Concent 28.5L, Red Cell Distribution Width 17.7H, Platelet Count 407, Mean Platelet Volume 7.5, Neutrophils (%) (Auto) , Lymphocytes (%) (Auto) , Monocytes (%) (Auto) , Eosinophils (%) (Auto) , Basophils (%) (Auto) , Neutrophils % (Manual) [Pending], Lymphocytes % (Manual) [Pending], Platelet Estimate [Pending], Platelet Morphology [Pending], Sodium Level 133L, Potassium Level 3.7, Chloride Level 100, Carbon Dioxide Level 22, Anion Gap 11, Blood Urea Nitrogen 20H, Creatinine 0.9, Estimat Glomerular Filtration Rate , Glucose Level 102, Calcium Level 8.3L Height (Feet): 5 Height (Inches): 0.00 Weight (Pounds): 205 General Appearance: lethargic EENT: normal ENT inspection Neck: normal alignment Cardiovascular: normal peripheral pulses, normal rate, regular rhythm Respiratory/Chest: decreased breath sounds Abdomen: normal bowel sounds, non tender, soft Extremities: normal inspection Edema: no edema noted Arm (L), no edema noted Arm (R), no edema noted Leg (L), no edema noted Leg (R), no edema noted Pedal (L), no edema noted Pedal (R), no edema noted Generalized Neurologic: responsive, motor weakness Skin: normal pigmentation, warm/dry QAMAR WALLACE Jul 14, 2017 09:14
[2017-07-14] MEDS: Morphine Sulfate 2mg/ml Inj IVP PRN (09:34)
[2017-07-14 11:36] VITALS: BP 130/68
[2017-07-14] MEDS: Promethazine/Codeine 5ml UD ORAL PRN (14:19)
--- NOTE | 2017-07-14 14:23 | Nephrology Progress Note ---
Assessment/Plan Assessment 1.dulce 2.hypocalcemia 3.hyponatremia 4.pna Plan plan to continue iv antibiotic mix all ivp with ns.9 check vit d monitoring renal function avoid NSAID replace electrolyte as need it Subjective Constitutional: Reports: no symptoms HEENT: Reports: no symptoms Genitourinary: Reports: no symptoms Neurologic/Psychiatric: Reports: no symptoms Subjective alert and awake c/o sob,cough Objective Objective Last 24 Hour Vital Signs Date Time Temp Pulse Resp B/P (MAP) Pulse Ox O2 Delivery O2 Flow Rate FiO2 07/14/17 11:36 97.5 106 18 130/68 94 Venturi Mask 8.0 07/14/17 10:04 98.2 07/14/17 09:55 106 24 Venturi Mask 8.0 40 07/14/17 08:10 110 131/69 07/14/17 07:44 98.2 110 16 131/69 92 Venturi Mask 8.0 07/14/17 07:41 105 07/14/17 04:00 97.9 77 16 129/77 99 07/14/17 04:00 98 07/14/17 00:00 97.3 99 20 137/62 90 07/14/17 00:00 95 07/13/17 20:00 100 07/13/17 20:00 97.7 102 20 125/60 91 07/13/17 19:00 98 24 Simple Mask 5.0 40 07/13/17 16:00 98 07/13/17 16:00 97.9 105 20 111/40 98 Venturi Mask 8.0 40 Intake and Output 07/13/17 07/14/17 19:00 07:00 Intake Total 240 ml Output Total 600 ml Balance -360 ml Intake Oral 240 ml Output Urine Total 600 ml # Voids 3 Laboratory Tests 07/14/17 07:50: White Blood Count 36.7*H, Red Blood Count 3.86L, Hemoglobin 8.5L, Hematocrit 29.7L, Mean Corpuscular Volume 77L, Mean Corpuscular Hemoglobin 22.0L, Mean Corpuscular Hemoglobin Concent 28.5L, Red Cell Distribution Width 17.7H, Platelet Count 407, Mean Platelet Volume 7.5, Neutrophils (%) (Auto) , Lymphocytes (%) (Auto) , Monocytes (%) (Auto) , Eosinophils (%) (Auto) , Basophils (%) (Auto) , Differential Total Cells Counted 100, Neutrophils % ( Manual) 92H, Lymphocytes % (Manual) 5L, Monocytes % (Manual) 3, Eosinophils % ( Manual) 0, Basophils % (Manual) 0, Band Neutrophils 0, Platelet Estimate Adequate, Platelet Morphology Normal, Hypochromasia 2+, Anisocytosis 1+, Microcytosis 1+, Sodium Level 133L, Potassium Level 3.7, Chloride Level 100, Carbon Dioxide Level 22, Anion Gap 11, Blood Urea Nitrogen 20H, Creatinine 0.9, Estimat Glomerular Filtration Rate , Glucose Level 102, Calcium Level 8.3L 07/14/17 09:45: Urine Creatinine 65.8 Height (Feet): 5 Height (Inches): 0.00 Weight (Pounds): 205 Objective HEENT: Atraumatic and normocephalic. Anicteric. Pupils are equal, round, and reactive to light and accommodation. Periorbital edema is evident. NECK: JVP is less than 5 cm. No carotid bruit. Carotid upstrokes 2+ bilaterally. CARDIOVASCULAR: Normal S1 and S2. Regular rate and rhythm. Tachycardic. No murmurs, gallops, or rubs. LUNGS: Bilateral crackles, mostly in the basilar parts. ABDOMEN: Soft, nontender, and nondistended. No hepatosplenomegaly. Positive bowel sounds. EXTREMITIES: No evidence of edema, clubbing, or cyanosis. BLAIRE SANCHEZ Jul 14, 2017 14:23
--- NOTE | 2017-07-14 15:17 | Pulmonology Progress Note ---
Assessment/Plan Assessment/Plan ASSESSMENT Acute hypoxemic RF requiring VM Sepsis CAP/RLL lobar PNA COPD mediastinal LAD possible pulm edema HTN DM microcytic anemia severe pulmonary HTN mild to moderate MR PLAN OF CARE Tele O2 titrate to keep sat above 92% ; pulm toilet , add CPT Empiric abx and Tamiflu ID follows influenza screen negative, dc Tamiflu, sputum and blood cx Fup with CXR CTA with RLL consolidation and mediastinal lymphadenopathy a/tussive prn DVT prophylaxis Cardio follows ECHO with pEF 65-70% and RVSP of 60 c/w severe pulm HTN as well as mild to mod MR check pro BNP BS management with Amaryl and SSI anemia w/up, microcytic, stool OB, CEA case discussed and evaluated by supervising physician Subjective Allergies: Coded Allergies: No Known Allergies (Unverified , 06/17/12) Subjective still with significant leukocytosis HH trending down on 40% VN tachycardic Objective Last 24 Hour Vital Signs Date Time Temp Pulse Resp B/P (MAP) Pulse Ox O2 Delivery O2 Flow Rate FiO2 07/14/17 11:36 97.5 106 18 130/68 94 Venturi Mask 8.0 07/14/17 10:04 98.2 07/14/17 09:55 106 24 Venturi Mask 8.0 40 07/14/17 08:10 110 131/69 07/14/17 07:44 98.2 110 16 131/69 92 Venturi Mask 8.0 07/14/17 07:41 105 07/14/17 04:00 97.9 77 16 129/77 99 07/14/17 04:00 98 07/14/17 00:00 97.3 99 20 137/62 90 07/14/17 00:00 95 07/13/17 20:00 100 07/13/17 20:00 97.7 102 20 125/60 91 07/13/17 19:00 98 24 Simple Mask 5.0 40 07/13/17 16:00 98 07/13/17 16:00 97.9 105 20 111/40 98 Venturi Mask 8.0 40 Intake and Output 07/13/17 07/14/17 19:00 07:00 Intake Total 240 ml Output Total 600 ml Balance -360 ml Intake Oral 240 ml Output Urine Total 600 ml # Voids 3 General Appearance: no acute distress, other - elderly AA female in NAD HEENT: normocephalic, atraumatic, other - VM 40% Respiratory/Chest: rhonchi - few scattered rhonchi Cardiovascular: normal peripheral pulses, regular rhythm, no JVD, tachycardia - ST on tele Abdomen: normal bowel sounds, soft, non tender Extremities: no edema Neurologic/Psychiatric: alert, responsive Microbiology Date/Time Source Procedure Growth Status 07/12/17 11:10 Blood Blood Culture - Preliminary NO GROWTH AFTER 24 HOURS Resulted 07/12/17 10:50 Blood Blood Culture - Preliminary NO GROWTH AFTER 24 HOURS Resulted 07/12/17 10:20 Nasal Nares Influenza Types A,B Antigen (MARIELOS) - Final Complete Laboratory Tests 07/14/17 07:50: White Blood Count 36.7*H, Red Blood Count 3.86L, Hemoglobin 8.5L, Hematocrit 29.7L, Mean Corpuscular Volume 77L, Mean Corpuscular Hemoglobin 22.0L, Mean Corpuscular Hemoglobin Concent 28.5L, Red Cell Distribution Width 17.7H, Platelet Count 407, Mean Platelet Volume 7.5, Neutrophils (%) (Auto) , Lymphocytes (%) (Auto) , Monocytes (%) (Auto) , Eosinophils (%) (Auto) , Basophils (%) (Auto) , Differential Total Cells Counted 100, Neutrophils % ( Manual) 92H, Lymphocytes % (Manual) 5L, Monocytes % (Manual) 3, Eosinophils % ( Manual) 0, Basophils % (Manual) 0, Band Neutrophils 0, Platelet Estimate Adequate, Platelet Morphology Normal, Hypochromasia 2+, Anisocytosis 1+, Microcytosis 1+, Sodium Level 133L, Potassium Level 3.7, Chloride Level 100, Carbon Dioxide Level 22, Anion Gap 11, Blood Urea Nitrogen 20H, Creatinine 0.9, Estimat Glomerular Filtration Rate , Glucose Level 102, Calcium Level 8.3L 07/14/17 09:45: Urine Creatinine 65.8 Current Medications Medications (Trade) Dose Ordered Sig/Ana Maria Route PRN Reason Start Time Stop Time Status Last Admin Dose Admin Acetaminophen (Tylenol) 650 mg Q4H PRN ORAL FEVER 07/12/17 14:45 08/11/17 14:44 07/13/17 16:35 Albuterol/ Ipratropium (Albuterol/ Ipratropium) 3 ml Q4H PRN HHN Shortness of Breath 1/4/18 14:45 07/17/17 14:44 07/13/17 08:00 Amlodipine Besylate (Norvasc) 10 mg DAILY ORAL 07/13/17 09:00 08/12/17 08:59 07/14/17 08:10 Cefepime HCl 2 gm/ Sodium Chloride 55 ml @ 110 mls/hr Q24H IVPB 07/14/17 18:30 07/21/17 18:29 Dextrose (Dextrose 50%) STAT PRN IV Hypoglycemia 07/12/17 14:45 08/11/17 14:44 Gabapentin (Neurontin) 300 mg BEDTIME ORAL 07/12/17 21:00 08/11/17 20:59 07/13/17 20:57 Glimepiride (Amaryl) 2 mg BEFORE BREAKFAST ORAL 07/13/17 06:30 08/12/17 06:29 07/14/17 06:38 Heparin Sodium (Porcine) (Heparin 5000 units/ml) 5,000 units EVERY 12 HOURS SUBQ 07/12/17 21:00 08/11/17 20:59 07/14/17 08:15 Insulin Aspart (NovoLOG) BEFORE MEALS AND HS SUBQ 07/12/17 17:30 08/11/17 17:29 07/14/17 11:28 Morphine Sulfate (Morphine Sulfate) 2 mg Q4H PRN IVP For Pain 07/14/17 09:00 07/21/17 08:59 07/14/17 09:34 Ondansetron HCl (Zofran) 4 mg Q6H PRN IVP Nausea & Vomiting 07/12/17 14:45 08/11/17 14:44 Oseltamivir Phosphate (Tamiflu) 75 mg TWICE A DAY ORAL 07/13/17 13:00 07/18/17 12:59 07/14/17 08:10 Polyethylene Glycol (Miralax) 17 gm DAILYPRN PRN ORAL Constipation 07/12/17 14:45 08/11/17 14:44 Promethazine HCl/ Codeine (Phenergan with Codeine) 5 ml Q4H PRN ORAL For Cough 07/12/17 14:45 08/11/17 14:44 07/14/17 14:19 Vancomycin HCl (Vanco rx to dose) 1 ea DAILY PRN MISC PRN RX TO DOSE PROTOCOL 07/12/17 17:45 08/11/17 17:44 Vancomycin/Sodium Chloride 250 ml @ 166.667 mls/hr Q24H IVPB 07/14/17 08:00 07/19/17 23:59 07/14/17 08:10 Asiya Parker NP ([facility]anchtein) Jul 14, 2017 15:17
[2017-07-14 16:55] VITALS: BP 151/69
[2017-07-14] MEDS: Cefepime HCl 2 GM in NS 55 ML IVPB SCH (17:49)
[2017-07-14] MEDS: Albuterol/Ipratropium 3ml neb HHN PRN (20:04)
[2017-07-14 20:15] VITALS: BP 127/61
[2017-07-14] MEDS ORDERED: NS 500ML ONE (22:44)
[2017-07-14] MEDS ORDERED: Tubing IV Secondary IV ONE (22:44)
[2017-07-14] MEDS ORDERED: 1/2 NS 1000ml IV ONE (22:44)
--- NOTE | 2017-07-14 23:17 | Cardiology Progress Note ---
Assessment/Plan Assessment/Plan 1. Dyspnea, most likely due to community-acquired pneumonia. Echocardiography reveals normal LV systolic function with LVEF at 65%. 2. Severe pulmonary HTN by echo, ? due to underlying COPD. 3. History of hypertension. 4. History of diabetes mellitus. 5. ST due to hypoxemia/sepsis. Subjective Subjective Sinus tachycardia at 106. Objective Last 24 Hour Vital Signs Date Time Temp Pulse Resp B/P (MAP) Pulse Ox O2 Delivery O2 Flow Rate FiO2 07/14/17 20:15 98.0 110 19 127/61 99 Venturi Mask 07/14/17 20:12 106 20 95 Venturi Mask 8.0 40 07/14/17 20:03 40 07/14/17 20:03 101 20 93 Venturi Mask 8.0 40 07/14/17 20:02 101 20 Venturi Mask 8.0 40 07/14/17 16:55 98.1 107 20 151/69 93 Venturi Mask 07/14/17 16:21 113 07/14/17 12:38 110 07/14/17 11:36 97.5 106 18 130/68 94 Venturi Mask 8.0 07/14/17 10:04 98.2 07/14/17 09:55 106 24 Venturi Mask 8.0 40 07/14/17 08:10 110 131/69 07/14/17 07:44 98.2 110 16 131/69 92 Venturi Mask 8.0 07/14/17 07:41 105 07/14/17 04:00 97.9 77 16 129/77 99 07/14/17 04:00 98 07/14/17 00:00 97.3 99 20 137/62 90 07/14/17 00:00 95 Intake and Output 07/13/17 07/14/17 19:00 07:00 Intake Total 240 ml Output Total 600 ml Balance -360 ml Intake Oral 240 ml Output Urine Total 600 ml # Voids 3 2D Echo: LVEF 65%, RVSP 60 mmHg, Mild MR, Grade I lVDD, Mild , NORMA at 1.5 cm2 Laboratory Tests Test 07/14/17 07:50 07/14/17 09:45 White Blood Count 36.7 K/UL (4.8-10.8) *H Red Blood Count 3.86 M/UL (4.20-5.40) L Hemoglobin 8.5 G/DL (12.0-16.0) L Hematocrit 29.7 % (37.0-47.0) L Mean Corpuscular Volume 77 FL (80-99) L Mean Corpuscular Hemoglobin 22.0 PG (27.0-31.0) L Mean Corpuscular Hemoglobin Concent 28.5 G/DL (32.0-36.0) L Red Cell Distribution Width 17.7 % (11.6-14.8) H Platelet Count 407 K/UL (150-450) Mean Platelet Volume 7.5 FL (6.5-10.1) Neutrophils (%) (Auto) % (45.0-75.0) Lymphocytes (%) (Auto) % (20.0-45.0) Monocytes (%) (Auto) % (1.0-10.0) Eosinophils (%) (Auto) % (0.0-3.0) Basophils (%) (Auto) % (0.0-2.0) Differential Total Cells Counted 100 Neutrophils % (Manual) 92 % (45-75) H Lymphocytes % (Manual) 5 % (20-45) L Monocytes % (Manual) 3 % (1-10) Eosinophils % (Manual) 0 % (0-3) Basophils % (Manual) 0 % (0-2) Band Neutrophils 0 % (0-8) Platelet Estimate Adequate Platelet Morphology Normal Hypochromasia 2+ Anisocytosis 1+ Microcytosis 1+ Sodium Level 133 MMOL/L (136-145) L Potassium Level 3.7 MMOL/L (3.5-5.1) Chloride Level 100 MMOL/L (98-107) Carbon Dioxide Level 22 MMOL/L (21-32) Anion Gap 11 mmol/L (5-15) Blood Urea Nitrogen 20 mg/dL (7-18) H Creatinine 0.9 MG/DL (0.55-1.30) Estimat Glomerular Filtration Rate mL/min (>60) Glucose Level 102 MG/DL (74-106) Calcium Level 8.3 MG/DL (8.5-10.1) L Urine Creatinine 65.8 MG/DL (30.0-125.0) Microbiology Date/Time Source Procedure Growth Status 07/12/17 11:10 Blood Blood Culture - Preliminary NO GROWTH AFTER 24 HOURS Resulted 07/12/17 10:50 Blood Blood Culture - Preliminary NO GROWTH AFTER 24 HOURS Resulted 07/12/17 10:20 Nasal Nares Influenza Types A,B Antigen (MARIELOS) - Final Complete Objective HEENT: Atraumatic and normocephalic. Anicteric. Pupils are equal, round, and reactive to light and accommodation. Periorbital edema is evident. NECK: JVP is less than 5 cm. No carotid bruit. Carotid upstrokes 2+ bilaterally. CARDIOVASCULAR: Normal S1 and S2. Regular rate and rhythm. Tachycardic. 2/6 ESM at LSB, no gallops or rubs. LUNGS: Bilateral crackles, mostly in the basilar parts. ABDOMEN: Soft, nontender, and nondistended. No hepatosplenomegaly. Positive bowel sounds. EXTREMITIES: No evidence of edema, clubbing, or cyanosis. MERNA MCCLELLAN Jul 14, 2017 23:17
[2017-07-15 00:34] VITALS: BP 152/69
[2017-07-15] MEDS: Morphine Sulfate 2mg/ml Inj IVP PRN ×2 (00:39→20:30)
[2017-07-15 04:16] VITALS: BP 149/74
[2017-07-15] MEDS: Glimepiride 1mg tab ORAL SCH (06:10)
[2017-07-15] MEDS: NovoLOG Insulin Flexpen SUBQ SCH ×4 (06:13→20:32)
[2017-07-15 07:29] VITALS: BP 140/68
[2017-07-15] MEDS: Heparin 5000 units/ml inj SUBQ SCH ×2 (08:17→20:33)
--- NOTE | 2017-07-15 08:33 | General Progress Note ---
Assessment/Plan Problem List: (1) Community acquired pneumonia ICD Codes: J18.9 - Pneumonia, unspecified organism SNOMED: 446724864 (2) COPD exacerbation ICD Codes: J44.1 - Chronic obstructive pulmonary disease with (acute) exacerbation SNOMED: 313882880 (3) Acute hypoxemic respiratory failure ICD Codes: J96.01 - Acute respiratory failure with hypoxia SNOMED: 081640758 (4) Leukocytosis ICD Codes: D72.829 - Elevated white blood cell count, unspecified SNOMED: 124470772, 693376426 (5) Influenza-like illness ICD Codes: R69 - Illness, unspecified SNOMED: 72350305 (6) Cough ICD Codes: R05 - Cough SNOMED: 58415194 (7) Sepsis ICD Codes: A41.9 - Sepsis, unspecified organism SNOMED: 57361185 Qualifiers: Qualified Codes: A41.9 - Sepsis, unspecified organism (8) Pneumonia ICD Codes: J18.9 - Pneumonia SNOMED: 597810272 Status: stable, progressing, tolerating diet Assessment/Plan o2 pulm tx abx ot pt diet cbc bmp am Subjective Constitutional: Reports: weakness Respiratory: Reports: shortness of breath Allergies: Coded Allergies: No Known Allergies (Unverified , 06/17/12) All Systems: reviewed and negative except above Subjective sitting tired o2 mask Objective Last 24 Hour Vital Signs Date Time Temp Pulse Resp B/P (MAP) Pulse Ox O2 Delivery O2 Flow Rate FiO2 07/15/17 08:20 94 140/68 07/15/17 07:29 97.7 94 19 140/68 97 Venturi Mask 8.0 07/15/17 04:16 97.6 101 19 149/74 97 Venturi Mask 07/15/17 04:00 93 07/15/17 01:09 97.6 07/15/17 00:34 97.6 110 19 152/69 98 Venturi Mask 07/15/17 00:00 111 07/14/17 20:15 98.0 110 19 127/61 99 Venturi Mask 07/14/17 20:12 106 20 95 Venturi Mask 8.0 40 07/14/17 20:03 40 07/14/17 20:03 101 20 93 Venturi Mask 8.0 40 07/14/17 20:02 101 20 Venturi Mask 8.0 40 07/14/17 20:00 106 07/14/17 16:55 98.1 107 20 151/69 93 Venturi Mask 07/14/17 16:21 113 07/14/17 12:38 110 07/14/17 11:36 97.5 106 18 130/68 94 Venturi Mask 8.0 07/14/17 09:55 106 24 Venturi Mask 8.0 40 Intake and Output 07/14/17 07/15/17 19:00 07:00 Intake Total 1283.334 ml Balance 1283.334 ml Intake Oral 840 ml IV Total 443.334 ml # Voids 4 2 Laboratory Tests 07/14/17 09:45: Urine Creatinine 65.8 Height (Feet): 5 Height (Inches): 0.00 Weight (Pounds): 205 General Appearance: lethargic EENT: normal ENT inspection Neck: normal alignment Cardiovascular: normal peripheral pulses, normal rate, regular rhythm Respiratory/Chest: decreased breath sounds Abdomen: normal bowel sounds, non tender, soft Extremities: normal inspection Edema: no edema noted Arm (L), no edema noted Arm (R), no edema noted Leg (L), no edema noted Leg (R), no edema noted Pedal (L), no edema noted Pedal (R), no edema noted Generalized Neurologic: responsive, motor weakness Skin: normal pigmentation, warm/dry QAMAR WALLACE Jul 15, 2017 08:33
[2017-07-15 10:18] LABS: HEMATOCRIT 27.8 % (37.0-47.0); HEMOGLOBIN 8.1 G/DL (12.0-16.0); MEAN CORPUSCULAR VOLUME 77 FL (80-99); PLATELET COUNT 375 K/UL (150-450); RED CELL DISTRIBUTION WIDTH 17.8 % (11.6-14.8)
[2017-07-15] MEDS: Vancomycin 750mg/NS 250ml IVPB SCH ×2 (10:33→22:14)
[2017-07-15 10:56] LABS: WHITE BLOOD COUNT 25.3 K/UL (4.8-10.8)
--- NOTE | 2017-07-15 11:32 | Pulmonology Progress Note ---
Assessment/Plan Assessment/Plan ASSESSMENT Acute hypoxemic RF requiring VM Sepsis CAP/RLL lobar PNA COPD mediastinal LAD possible pulm edema HTN DM microcytic anemia severe pulmonary HTN mild to moderate MR PLAN OF CARE Tele O2 titrate to keep sat above 92% ; pulm toilet , add CPT Empiric abx and Tamiflu ID follows influenza screen negative, dc Tamiflu, sputum and blood cx Fup with CXR CTA with RLL consolidation and mediastinal lymphadenopathy a/tussive prn DVT prophylaxis Cardio follows ECHO with pEF 65-70% and RVSP of 60 c/w severe pulm HTN as well as mild to mod MR check pro BNP BS management with Amaryl and SSI anemia w/up noted, microcytic, low iron, start Venofer get stool OB, CEA transfuse with goal to keep Hgb above 7.5 LDH WNL keep on tele while still tachy case discussed and evaluated by supervising physician Subjective Allergies: Coded Allergies: No Known Allergies (Unverified , 06/17/12) Subjective still with significant leukocytosis but trending down HH trending down on VN tachycardic Objective Last 24 Hour Vital Signs Date Time Temp Pulse Resp B/P (MAP) Pulse Ox O2 Delivery O2 Flow Rate FiO2 07/15/17 08:20 94 140/68 07/15/17 08:03 107 07/15/17 07:29 97.7 94 19 140/68 97 Venturi Mask 8.0 07/15/17 04:16 97.6 101 19 149/74 97 Venturi Mask 07/15/17 04:00 93 07/15/17 01:09 97.6 07/15/17 00:34 97.6 110 19 152/69 98 Venturi Mask 07/15/17 00:00 111 07/14/17 20:15 98.0 110 19 127/61 99 Venturi Mask 07/14/17 20:12 106 20 95 Venturi Mask 8.0 40 07/14/17 20:03 40 07/14/17 20:03 101 20 93 Venturi Mask 8.0 40 07/14/17 20:02 101 20 Venturi Mask 8.0 40 07/14/17 20:00 106 07/14/17 16:55 98.1 107 20 151/69 93 Venturi Mask 07/14/17 16:21 113 07/14/17 12:38 110 07/14/17 11:36 97.5 106 18 130/68 94 Venturi Mask 8.0 Intake and Output 07/14/17 07/15/17 19:00 07:00 Intake Total 1283.334 ml Balance 1283.334 ml Intake Oral 840 ml IV Total 443.334 ml # Voids 4 2 Objective General Appearance: no acute distress, other - elderly AA female in NAD HEENT: normocephalic, atraumatic, other - VM 8L/min Respiratory/Chest: rhonchi - few scattered rhonchi Cardiovascular: normal peripheral pulses, regular rhythm, no JVD, tachycardia - ST on tele Abdomen: normal bowel sounds, soft, non tender Extremities: no edema Neurologic/Psychiatric: alert, responsive Laboratory Tests 07/15/17 08:32: Vancomycin Level Trough 6.2 07/15/17 10:07: White Blood Count 25.3*H, Red Blood Count 3.60L, Hemoglobin 8.1L, Hematocrit 27.8L, Mean Corpuscular Volume 77L, Mean Corpuscular Hemoglobin 22.6L, Mean Corpuscular Hemoglobin Concent 29.3L, Red Cell Distribution Width 17.8H, Platelet Count 375, Mean Platelet Volume 6.4L, Neutrophils (%) (Auto) , Lymphocytes (%) (Auto) , Monocytes (%) (Auto) , Eosinophils (%) (Auto) , Basophils (%) (Auto) , Differential Total Cells Counted 100, Neutrophils % ( Manual) 77H, Lymphocytes % (Manual) 10L, Monocytes % (Manual) 10, Eosinophils % (Manual) 1, Basophils % (Manual) 0, Band Neutrophils 2, Platelet Estimate Adequate, Platelet Morphology Normal, Hypochromasia 1+, Anisocytosis 1+, Microcytosis 1+ Current Medications Medications (Trade) Dose Ordered Sig/Ana Maria Route PRN Reason Start Time Stop Time Status Last Admin Dose Admin Acetaminophen (Tylenol) 650 mg Q4H PRN ORAL FEVER 07/12/17 14:45 08/11/17 14:44 07/13/17 16:35 Albuterol/ Ipratropium (Albuterol/ Ipratropium) 3 ml Q4H PRN HHN Shortness of Breath 07/12/17 14:45 07/17/17 14:44 07/14/17 20:04 Amlodipine Besylate (Norvasc) 10 mg DAILY ORAL 1/5/18 09:00 08/12/17 08:59 07/15/17 08:20 Cefepime HCl 2 gm/ Sodium Chloride 55 ml @ 110 mls/hr Q24H IVPB 07/14/17 18:30 07/21/17 18:29 07/14/17 17:49 Dextrose (Dextrose 50%) STAT PRN IV Hypoglycemia 07/12/17 14:45 08/11/17 14:44 Gabapentin (Neurontin) 300 mg BEDTIME ORAL 07/12/17 21:00 08/11/17 20:59 07/14/17 20:38 Glimepiride (Amaryl) 2 mg BEFORE BREAKFAST ORAL 07/13/17 06:30 08/12/17 06:29 07/15/17 06:10 Heparin Sodium (Porcine) (Heparin 5000 units/ml) 5,000 units EVERY 12 HOURS SUBQ 07/12/17 21:00 08/11/17 20:59 07/15/17 08:17 Insulin Aspart (NovoLOG) BEFORE MEALS AND HS SUBQ 07/12/17 17:30 08/11/17 17:29 07/15/17 06:13 Morphine Sulfate (Morphine Sulfate) 2 mg Q4H PRN IVP For Pain 07/14/17 09:00 07/21/17 08:59 07/15/17 00:39 Ondansetron HCl (Zofran) 4 mg Q6H PRN IVP Nausea & Vomiting 07/12/17 14:45 08/11/17 14:44 Polyethylene Glycol (Miralax) 17 gm DAILYPRN PRN ORAL Constipation 07/12/17 14:45 08/11/17 14:44 Promethazine HCl/ Codeine (Phenergan with Codeine) 5 ml Q4H PRN ORAL For Cough 07/12/17 14:45 08/11/17 14:44 07/14/17 14:19 Vancomycin HCl (Vanco rx to dose) 1 ea DAILY PRN MISC PRN RX TO DOSE PROTOCOL 07/12/17 17:45 08/11/17 17:44 Vancomycin/Sodium Chloride 250 ml @ 166.667 mls/hr Q12HR@1000,2200 IVPB 07/15/17 22:00 07/20/17 21:59 Vancomycin/Sodium Chloride 250 ml @ 166.667 mls/hr Q24H IVPB 07/14/17 08:00 07/15/17 12:00 07/15/17 10:33 Keith (Delfin)Asiya NP Jul 15, 2017 11:32
[2017-07-15 12:37] VITALS: BP 131/51
--- NOTE | 2017-07-15 12:57 | Infectious Diseases Prog Note ---
Assessment/Plan Assessment/Plan A Pneumonia COPD Influenza exposure Acute renal failure DM type 2 Morbid obesity P; Continue Vancomycin & Zosyn will f/u cultures Subjective ROS Limited/Unobtainable: No Constitutional: Reports: no symptoms, other - feels better Respiratory: Reports: productive cough Cardiovascular: Reports: no symptoms Gastrointestinal/Abdominal: Reports: no symptoms Genitourinary: Reports: no symptoms Allergies: Coded Allergies: No Known Allergies (Unverified , 06/17/12) Objective Vital Signs Last 24 Hour Vital Signs Date Time Temp Pulse Resp B/P (MAP) Pulse Ox O2 Delivery O2 Flow Rate FiO2 07/15/17 12:37 97.7 98 19 131/51 97 Venturi Mask 8.0 07/15/17 09:06 92 20 Venturi Mask 8.0 40 07/15/17 08:20 94 140/68 07/15/17 08:03 107 07/15/17 07:29 97.7 94 19 140/68 97 Venturi Mask 8.0 07/15/17 04:16 97.6 101 19 149/74 97 Venturi Mask 07/15/17 04:00 93 07/15/17 01:09 97.6 07/15/17 00:34 97.6 110 19 152/69 98 Venturi Mask 07/15/17 00:00 111 07/14/17 20:15 98.0 110 19 127/61 99 Venturi Mask 07/14/17 20:12 106 20 95 Venturi Mask 8.0 40 07/14/17 20:03 40 07/14/17 20:03 101 20 93 Venturi Mask 8.0 40 07/14/17 20:02 101 20 Venturi Mask 8.0 40 07/14/17 20:00 106 07/14/17 16:55 98.1 107 20 151/69 93 Venturi Mask 07/14/17 16:21 113 Height (Feet): 5 Height (Inches): 0.00 Weight (Pounds): 205 General Appearance: no acute distress HEENT: mucous membranes moist Respiratory/Chest: lungs clear, other - O2 by venturi mask Cardiovascular: normal rate Abdomen: soft, non tender Extremities: other - edema of legs Laboratory Tests Test 07/15/17 08:32 07/15/17 10:07 Vancomycin Level Trough 6.2 ug/mL (5.0-12.0) White Blood Count 25.3 K/UL (4.8-10.8) *H Red Blood Count 3.60 M/UL (4.20-5.40) L Hemoglobin 8.1 G/DL (12.0-16.0) L Hematocrit 27.8 % (37.0-47.0) L Mean Corpuscular Volume 77 FL (80-99) L Mean Corpuscular Hemoglobin 22.6 PG (27.0-31.0) L Mean Corpuscular Hemoglobin Concent 29.3 G/DL (32.0-36.0) L Red Cell Distribution Width 17.8 % (11.6-14.8) H Platelet Count 375 K/UL (150-450) Mean Platelet Volume 6.4 FL (6.5-10.1) L Neutrophils (%) (Auto) % (45.0-75.0) Lymphocytes (%) (Auto) % (20.0-45.0) Monocytes (%) (Auto) % (1.0-10.0) Eosinophils (%) (Auto) % (0.0-3.0) Basophils (%) (Auto) % (0.0-2.0) Differential Total Cells Counted 100 Neutrophils % (Manual) 77 % (45-75) H Lymphocytes % (Manual) 10 % (20-45) L Monocytes % (Manual) 10 % (1-10) Eosinophils % (Manual) 1 % (0-3) Basophils % (Manual) 0 % (0-2) Band Neutrophils 2 % (0-8) Platelet Estimate Adequate Platelet Morphology Normal Hypochromasia 1+ Anisocytosis 1+ Microcytosis 1+ Current Medications Medications (Trade) Dose Ordered Sig/Ana Maria Route PRN Reason Start Time Stop Time Status Last Admin Dose Admin Acetaminophen (Tylenol) 650 mg Q4H PRN ORAL FEVER 07/12/17 14:45 08/11/17 14:44 07/13/17 16:35 Albuterol/ Ipratropium (Albuterol/ Ipratropium) 3 ml Q4H PRN HHN Shortness of Breath 07/15/17 14:45 07/20/17 14:44 Amlodipine Besylate (Norvasc) 10 mg DAILY ORAL 07/13/17 09:00 08/12/17 08:59 07/15/17 08:20 Cefepime HCl 2 gm/ Sodium Chloride 55 ml @ 110 mls/hr Q24H IVPB 07/14/17 18:30 07/21/17 18:29 07/14/17 17:49 Dextrose (Dextrose 50%) STAT PRN IV Hypoglycemia 07/12/17 14:45 08/11/17 14:44 Gabapentin (Neurontin) 300 mg BEDTIME ORAL 07/12/17 21:00 08/11/17 20:59 07/14/17 20:38 Glimepiride (Amaryl) 2 mg BEFORE BREAKFAST ORAL 07/13/17 06:30 08/12/17 06:29 07/15/17 06:10 Heparin Sodium (Porcine) (Heparin 5000 units/ml) 5,000 units EVERY 12 HOURS SUBQ 07/12/17 21:00 08/11/17 20:59 07/15/17 08:17 Insulin Aspart (NovoLOG) BEFORE MEALS AND HS SUBQ 07/12/17 17:30 08/11/17 17:29 07/15/17 12:08 Morphine Sulfate (Morphine Sulfate) 2 mg Q4H PRN IVP For Pain 07/14/17 09:00 07/21/17 08:59 07/15/17 00:39 Ondansetron HCl (Zofran) 4 mg Q6H PRN IVP Nausea & Vomiting 07/12/17 14:45 08/11/17 14:44 Polyethylene Glycol (Miralax) 17 gm DAILYPRN PRN ORAL Constipation 07/12/17 14:45 08/11/17 14:44 Promethazine HCl/ Codeine (Phenergan with Codeine) 5 ml Q4H PRN ORAL For Cough 07/12/17 14:45 08/11/17 14:44 07/14/17 14:19 Vancomycin HCl (Vanco rx to dose) 1 ea DAILY PRN MISC PRN RX TO DOSE PROTOCOL 07/12/17 17:45 08/11/17 17:44 Vancomycin/Sodium Chloride 250 ml @ 166.667 mls/hr Q12HR@1000,2200 IVPB 07/15/17 22:00 07/20/17 21:59 ARLENE BAEZ Jul 15, 2017 12:57
[2017-07-15] MEDS: Albuterol/Ipratropium 3ml neb HHN PRN (13:45)
[2017-07-15 15:58] VITALS: BP 141/66
[2017-07-15] MEDS: Cefepime HCl 2 GM in NS 55 ML IVPB SCH (17:30)
[2017-07-15 17:31] LABS: % IRON SATURATION 4 % (15-50); IRON 12 ug/dL (50-175); TOTAL IRON BINDING CAPACITY 290 ug/dL (250-450)
[2017-07-15 17:43] LABS: ANION GAP 9 mmol/L (5-15); BLOOD UREA NITROGEN 14 mg/dL (7-18); CALCIUM 8.1 MG/DL (8.5-10.1); CARBON DIOXIDE 25 MMOL/L (21-32); CHLORIDE 100 MMOL/L (98-107); CREATININE 0.9 MG/DL (0.55-1.30); FERRITIN 89 NG/ML (8-388); POTASSIUM 3.5 MMOL/L (3.5-5.1); SODIUM 134 MMOL/L (136-145)
[2017-07-15 20:20] VITALS: BP 150/75
[2017-07-16] MEDS: Promethazine/Codeine 5ml UD ORAL PRN ×3 (00:12→20:36)
[2017-07-16 00:25] VITALS: BP 150/75
[2017-07-16] MEDS: Iron Sucrose 100 MG in NS 55 ML IV SCH ×2 (00:49→20:35)
[2017-07-16 04:11] VITALS: BP 149/73
[2017-07-16] MEDS: Glimepiride 1mg tab ORAL SCH (06:30)
[2017-07-16] MEDS: NovoLOG Insulin Flexpen SUBQ SCH ×4 (06:30→20:43)
[2017-07-16 07:36] LABS: HEMATOCRIT 27.1 % (37.0-47.0); HEMOGLOBIN 8.2 G/DL (12.0-16.0); MEAN CORPUSCULAR VOLUME 77 FL (80-99); PLATELET COUNT 376 K/UL (150-450); RED BLOOD COUNT 3.51 M/UL (4.20-5.40); RED CELL DISTRIBUTION WIDTH 17.8 % (11.6-14.8); WHITE BLOOD COUNT 18.9 K/UL (4.8-10.8)
[2017-07-16 07:51] LABS: ANION GAP 10 mmol/L (5-15); BLOOD UREA NITROGEN 13 mg/dL (7-18); CARBON DIOXIDE 26 MMOL/L (21-32); CHLORIDE 101 MMOL/L (98-107); CREATININE 0.8 MG/DL (0.55-1.30); POTASSIUM 3.6 MMOL/L (3.5-5.1); SODIUM 137 MMOL/L (136-145)
[2017-07-16 08:00] VITALS: BP 146/72
[2017-07-16] MEDS: Heparin 5000 units/ml inj SUBQ SCH ×2 (08:22→20:44)
--- NOTE | 2017-07-16 08:30 | Consultation ---
DATE OF CONSULTATION: 07/13/2017 NEPHROLOGY CONSULTATION CONSULTING PHYSICIAN: Brook Robin M.D. REFERRING PHYSICIAN: Jai Siddiqi D.O. REASON FOR CONSULTATION: Hyponatremia, fluid overload, and hypocalcemia. HISTORY OF PRESENT ILLNESS: The patient is a 72-year-old female with past medical history significant for history of diabetes, hypertension, and history of diabetic neuropathy who presented to [facility] emergency room complaining of two days history of productive cough, myalgia, and chills. Upon arrival in the ER, the patient had a chest x-ray, which revealed pulmonary edema versus pneumonia. The patient consequently was admitted in telemetry unit. I was called for management of renal disease and electrolyte imbalance. PAST MEDICAL HISTORY: Includin. History of hypertension. 2. History of diabetes. 3. History of osteoarthritis. 4. History of diabetic neuropathy. 5. History of dyslipidemia. HOME MEDICATIONS: Includin. Albuterol p.r.n. shortness of breath. 2. Amlodipine 10 mg p.o. daily. 3. Amoxicillin and clavulanic acid one tablet p.o. twice daily. 4. Atorvastatin 40 mg p.o. daily. 5. Promethazine p.r.n. cough. 6. Gabapentin 300 mg at bedtime. 7. Glimepiride 2 mg at a.m. 8. [place] 5/325 mg one tablet p.o. daily. 9. Ibuprofen 600 mg p.o. daily. 10. Insulin aspart. 11. Levaquin 500 mg p.o. daily. 12. Hyzaar 100/ mg p.o. daily. 13. Metformin 850 mg p.o. daily. 14. Nitro p.r.n. 15. Actoplus 15/850 mg p.o. twice daily. 16. Temazepam 15 mg at bedtime. 17. Theophylline 100 mg p.o. daily. SOCIAL HISTORY: Lives at home. There is no history of tobacco, alcohol, or drug use. FAMILY HISTORY: Negative for any history of premature heart disease or history of chronic kidney disease. REVIEW OF SYSTEMS: GENERAL: She complained of generalized weakness. Denied any fever, chills, or night sweats. Denied any weight changes. PULMONARY: Complained of shortness of breath and cough with yellow sputum. CARDIOVASCULAR: Denies any chest pain, but complained of shortness of breath. Denies any orthopnea, PND, or leg swelling. GASTROINTESTINAL: Denies any nausea, vomiting, diarrhea, hematemesis, or hematochezia. GENITOURINARY: Denies any dysuria, frequency, or hematuria. MUSCULOSKELETAL: Denies any weakness or numbness. PHYSICAL EXAMINATION: VITAL SIGNS: The patient has a temperature of 98 degrees, blood pressure of 116/66, pulse rate of 82, and respiratory rate of 18. HEAD AND NECK: No JVP. No LAD. No thyromegaly. Extraocular movement intact. Pupils are reactive to light and accommodation. LUNGS: Bilateral crackles. CARDIAC: Regular rate and rhythm. S1 and S2. No murmur. No rub. ABDOMEN: Soft, nontender, and nondistended. No organomegaly. EXTREMITIES: Trace edema. No clubbing. No cyanosis. LABORATORY AND DIAGNOSTIC DATA: The patient had a chest x-ray, which showed right perihilar diffuse interstitial airspace consolidation, left-sided interstitial disease, infiltrate versus pulmonary edema . Chemistry upon admission revealed sodium of 132, potassium 3.8, chloride 96, bicarbonate 24, BUN 21, creatinine of 1.2, glucose of 163, and calcium is 7.9. AST of 26, ALT of 20, and alkaline phosphatase of 85. Total protein of 8.7. Albumin of 3. CBC revealed WBC count of 32,000, hemoglobin of 9.2, hematocrit of 31, and platelet count of 407. There is no UA. ASSESSMENT: 1. Hypervolemic hyponatremia. 2. Hypocalcemia. 3. Possible diabetic . 4. Hypertension, which is under control at this time. 5. Diabetes. 6. Possible pneumonia. PLAN: Plan for the patient to obtain a UA. Check the random urine protein-creatinine ratio to calculate the proteinuria. Check the urine sodium and creatinine to calculate fractional excretion of sodium. Ultrasound of the kidney to evaluate the kidney size. Check the microalbumin level. Check the A1c, recommended for this patient is 6 to 7. Continue with current antihypertensive medication. Replace electrolytes as needed. At the end, I would like to thank, Dr. Jai Siddiqi, for allowing me to participate in the care of this patient. Brook Robin M.D. DR: MEREDITH JOB#: [id number] CC:
--- NOTE | 2017-07-16 08:35 | Nephrology Progress Note ---
Assessment/Plan Assessment 1.dulce 2.hypocalcemia 3.hyponatremia 4.pna Plan plan to continue iv antibiotic mix all ivp with ns.9 check vit d monitoring renal function avoid NSAID replace electrolyte as need it Subjective Subjective alert and awake c/o sob,cough Objective Objective Last 24 Hour Vital Signs Date Time Temp Pulse Resp B/P (MAP) Pulse Ox O2 Delivery O2 Flow Rate FiO2 07/16/17 08:20 103 146/72 07/16/17 04:11 97.9 101 20 149/73 94 07/16/17 04:00 92 07/16/17 00:25 97.7 109 20 150/75 94 07/16/17 00:00 105 07/15/17 20:20 97.7 109 20 150/75 94 07/15/17 20:00 112 07/15/17 19:10 100 20 Venturi Mask 8.0 40 07/15/17 16:17 107 07/15/17 15:58 97.8 111 19 141/66 97 Venturi Mask 8.0 07/15/17 14:00 105 22 97 Venturi Mask 8.0 40 07/15/17 13:45 105 24 94 Venturi Mask 8.0 40 07/15/17 12:37 97.7 98 19 131/51 97 Venturi Mask 8.0 07/15/17 11:35 108 07/15/17 09:06 92 20 Venturi Mask 8.0 40 Intake and Output 07/15/17 07/16/17 19:00 07:00 Intake Total 1383.334 ml 310.000 ml Output Total 1000 ml Balance 1383.334 ml -690.000 ml Intake Oral 940 ml IV Total 443.334 ml 310.000 ml Output Urine Total 1000 ml # Voids 1 4 Laboratory Tests 07/15/17 10:07: White Blood Count 25.3*H, Red Blood Count 3.60L, Hemoglobin 8.1L, Hematocrit 27.8L, Mean Corpuscular Volume 77L, Mean Corpuscular Hemoglobin 22.6L, Mean Corpuscular Hemoglobin Concent 29.3L, Red Cell Distribution Width 17.8H, Platelet Count 375, Mean Platelet Volume 6.4L, Neutrophils (%) (Auto) , Lymphocytes (%) (Auto) , Monocytes (%) (Auto) , Eosinophils (%) (Auto) , Basophils (%) (Auto) , Differential Total Cells Counted 100, Neutrophils % ( Manual) 77H, Lymphocytes % (Manual) 10L, Monocytes % (Manual) 10, Eosinophils % (Manual) 1, Basophils % (Manual) 0, Band Neutrophils 2, Platelet Estimate Adequate, Platelet Morphology Normal, Hypochromasia 1+, Anisocytosis 1+, Microcytosis 1+ 07/15/17 16:10: Sodium Level 134L, Potassium Level 3.5, Chloride Level 100, Carbon Dioxide Level 25, Anion Gap 9, Blood Urea Nitrogen 14, Creatinine 0.9, Estimat Glomerular Filtration Rate , Glucose Level 151H, Calcium Level 8.1L, Iron Level 12L, Total Iron Binding Capacity 290, Percent Iron Saturation 4L, Unsaturated Iron Binding 278, Ferritin 89, Lactate Dehydrogenase 214 07/16/17 05:30: White Blood Count 18.9H, Red Blood Count 3.51L, Hemoglobin 8.2L, Hematocrit 27.1L, Mean Corpuscular Volume 77L, Mean Corpuscular Hemoglobin 23.3L, Mean Corpuscular Hemoglobin Concent 30.2L, Red Cell Distribution Width 17.8H, Platelet Count 376, Mean Platelet Volume 6.6, Neutrophils (%) (Auto) , Lymphocytes (%) (Auto) , Monocytes (%) (Auto) , Eosinophils (%) (Auto) , Basophils (%) (Auto) , Neutrophils % (Manual) [Pending], Lymphocytes % (Manual) [Pending], Platelet Estimate [Pending], Platelet Morphology [Pending], Sodium Level 137, Potassium Level 3.6, Chloride Level 101, Carbon Dioxide Level 26, Anion Gap 10, Blood Urea Nitrogen 13, Creatinine 0.8, Estimat Glomerular Filtration Rate , Glucose Level 84, Calcium Level 8.0L, Pro-B-Type Natriuretic Peptide 1347H Height (Feet): 5 Height (Inches): 0.00 Weight (Pounds): 205 Objective HEENT: Atraumatic and normocephalic. Anicteric. Pupils are equal, round, and reactive to light and accommodation. Periorbital edema is evident. NECK: JVP is less than 5 cm. No carotid bruit. Carotid upstrokes 2+ bilaterally. CARDIOVASCULAR: Normal S1 and S2. Regular rate and rhythm. Tachycardic. No murmurs, gallops, or rubs. LUNGS: Bilateral crackles, mostly in the basilar parts. ABDOMEN: Soft, nontender, and nondistended. No hepatosplenomegaly. Positive bowel sounds. EXTREMITIES: No evidence of edema, clubbing, or cyanosis. BLAIRE SANCHEZ Jul 16, 2017 08:35
[2017-07-16] MEDS: Vancomycin 750mg/NS 250ml IVPB SCH ×2 (10:10→21:52)
[2017-07-16 12:00] VITALS: BP 140/72
[2017-07-16] MEDS: Albuterol/Ipratropium 3ml neb HHN PRN (14:05)
--- NOTE | 2017-07-16 14:40 | General Progress Note ---
Assessment/Plan Problem List: (1) Community acquired pneumonia ICD Codes: J18.9 - Pneumonia, unspecified organism SNOMED: 743025461 (2) COPD exacerbation ICD Codes: J44.1 - Chronic obstructive pulmonary disease with (acute) exacerbation SNOMED: 346444216 (3) Acute hypoxemic respiratory failure ICD Codes: J96.01 - Acute respiratory failure with hypoxia SNOMED: 148550337 (4) Leukocytosis ICD Codes: D72.829 - Elevated white blood cell count, unspecified SNOMED: 016299422, 293042040 (5) Influenza-like illness ICD Codes: R69 - Illness, unspecified SNOMED: 87364704 (6) Cough ICD Codes: R05 - Cough SNOMED: 28924155 (7) Sepsis ICD Codes: A41.9 - Sepsis, unspecified organism SNOMED: 67426028 Qualifiers: Qualified Codes: A41.9 - Sepsis, unspecified organism (8) Pneumonia ICD Codes: J18.9 - Pneumonia SNOMED: 258315565 Status: stable, progressing, tolerating diet Assessment/Plan o2 pulm tx abx ot pt diet cbc bmp am dc plan w hh Subjective Constitutional: Reports: weakness Respiratory: Reports: shortness of breath Allergies: Coded Allergies: No Known Allergies (Unverified , 06/17/12) All Systems: reviewed and negative except above Subjective sitting tired o2 nc Objective Last 24 Hour Vital Signs Date Time Temp Pulse Resp B/P (MAP) Pulse Ox O2 Delivery O2 Flow Rate FiO2 07/16/17 14:09 94 22 97 Nasal Cannula 3.0 32 07/16/17 13:57 89 18 93 Venturi Mask 3.0 32 07/16/17 12:00 96.8 87 20 140/72 94 07/16/17 08:20 103 146/72 07/16/17 08:00 98.2 103 20 146/72 90 07/16/17 08:00 102 07/16/17 07:25 90 10 Nasal Cannula 3.0 36 07/16/17 04:11 97.9 101 20 149/73 94 07/16/17 04:00 92 07/16/17 00:25 97.7 109 20 150/75 94 07/16/17 00:00 105 07/15/17 20:20 97.7 109 20 150/75 94 07/15/17 20:00 112 1/7/18 19:10 100 20 Venturi Mask 8.0 40 07/15/17 16:17 107 07/15/17 15:58 97.8 111 19 141/66 97 Venturi Mask 8.0 Intake and Output 07/15/17 07/16/17 19:00 07:00 Intake Total 1383.334 ml 310.000 ml Output Total 1000 ml Balance 1383.334 ml -690.000 ml Intake Oral 940 ml IV Total 443.334 ml 310.000 ml Output Urine Total 1000 ml # Voids 1 4 Laboratory Tests 07/15/17 16:10: Sodium Level 134L, Potassium Level 3.5, Chloride Level 100, Carbon Dioxide Level 25, Anion Gap 9, Blood Urea Nitrogen 14, Creatinine 0.9, Estimat Glomerular Filtration Rate , Glucose Level 151H, Calcium Level 8.1L, Iron Level 12L, Total Iron Binding Capacity 290, Percent Iron Saturation 4L, Unsaturated Iron Binding 278, Ferritin 89, Lactate Dehydrogenase 214 07/16/17 05:30: Sodium Level 137, Potassium Level 3.6, Chloride Level 101, Carbon Dioxide Level 26, Anion Gap 10, Blood Urea Nitrogen 13, Creatinine 0.8, Estimat Glomerular Filtration Rate , Glucose Level 84, Calcium Level 8.0L, White Blood Count 18.9H , Red Blood Count 3.51L, Hemoglobin 8.2L, Hematocrit 27.1L, Mean Corpuscular Volume 77L, Mean Corpuscular Hemoglobin 23.3L, Mean Corpuscular Hemoglobin Concent 30.2L, Red Cell Distribution Width 17.8H, Platelet Count 376, Mean Platelet Volume 6.6, Neutrophils (%) (Auto) , Lymphocytes (%) (Auto) , Monocytes (%) (Auto) , Eosinophils (%) (Auto) , Basophils (%) (Auto) , Differential Total Cells Counted 100, Neutrophils % (Manual) 71, Lymphocytes % ( Manual) 12L, Monocytes % (Manual) 14H, Eosinophils % (Manual) 2, Basophils % ( Manual) 1, Band Neutrophils 0, Platelet Estimate Adequate, Platelet Morphology Normal, Hypochromasia 2+, Anisocytosis 1+, Microcytosis 1+, Pro-B-Type Natriuretic Peptide 1347H Height (Feet): 5 Height (Inches): 0.00 Weight (Pounds): 205 General Appearance: lethargic EENT: normal ENT inspection Neck: normal alignment Cardiovascular: normal peripheral pulses, normal rate, regular rhythm Respiratory/Chest: decreased breath sounds Abdomen: normal bowel sounds, non tender, soft Extremities: normal inspection Edema: no edema noted Arm (L), no edema noted Arm (R), no edema noted Leg (L), no edema noted Leg (R), no edema noted Pedal (L), no edema noted Pedal (R), no edema noted Generalized Neurologic: responsive, motor weakness Skin: normal pigmentation, warm/dry QAMAR WALLACE Jul 16, 2017 14:40
--- NOTE | 2017-07-16 15:35 | Pulmonology Progress Note ---
Assessment/Plan Problems: (1) Acute hypoxemic respiratory failure (2) Sepsis (3) COPD (chronic obstructive pulmonary disease) (4) Community acquired pneumonia (5) Chronic liver disease Assessment/Plan wbc lower today CXR from showing worsening of RLL infiltrate continue cefepime, vancomycin and Tamiflue respiratory treatment keep in teli until tachycardia resolves, Heart rate is still 101 Subjective ROS Limited/Unobtainable: No Interval Events: comfortable, improving, still coughing Constitutional: Reports: no symptoms HEENT: Repors: no symptoms Allergies: Coded Allergies: No Known Allergies (Unverified , 06/17/12) Objective Last 24 Hour Vital Signs Date Time Temp Pulse Resp B/P (MAP) Pulse Ox O2 Delivery O2 Flow Rate FiO2 07/16/17 14:09 94 22 97 Nasal Cannula 3.0 32 07/16/17 13:57 89 18 93 Venturi Mask 3.0 32 07/16/17 12:00 96.8 87 20 140/72 94 07/16/17 08:20 103 146/72 07/16/17 08:00 98.2 103 20 146/72 90 07/16/17 08:00 102 07/16/17 07:25 90 10 Nasal Cannula 3.0 36 07/16/17 04:11 97.9 101 20 149/73 94 07/16/17 04:00 92 07/16/17 00:25 97.7 109 20 150/75 94 07/16/17 00:00 105 07/15/17 20:20 97.7 109 20 150/75 94 07/15/17 20:00 112 07/15/17 19:10 100 20 Venturi Mask 8.0 40 07/15/17 16:17 107 07/15/17 15:58 97.8 111 19 141/66 97 Venturi Mask 8.0 Intake and Output 07/15/17 07/16/17 18:59 06:59 Intake Total 1383.334 ml 310.000 ml Output Total 1000 ml Balance 1383.334 ml -690.000 ml Intake Oral 940 ml IV Total 443.334 ml 310.000 ml Output Urine Total 1000 ml # Voids 1 4 General Appearance: WD/WN HEENT: normocephalic, atraumatic Respiratory/Chest: chest wall non-tender, decreased breath sounds, crackles/ rales Cardiovascular: normal peripheral pulses, normal rate Abdomen: normal bowel sounds, soft, non tender Genitourinary: normal external genitalia Extremities: no clubbing 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 Microbiology Date/Time Source Procedure Growth Status 07/15/17 09:30 Sputum Gram Stain - Final Resulted 07/15/17 09:30 Sputum Sputum Culture - Preliminary NO GROWTH AFTER 24 HOURS Resulted Laboratory Tests 07/15/17 16:10: Sodium Level 134L, Potassium Level 3.5, Chloride Level 100, Carbon Dioxide Level 25, Anion Gap 9, Blood Urea Nitrogen 14, Creatinine 0.9, Estimat Glomerular Filtration Rate , Glucose Level 151H, Calcium Level 8.1L, Iron Level 12L, Total Iron Binding Capacity 290, Percent Iron Saturation 4L, Unsaturated Iron Binding 278, Ferritin 89, Lactate Dehydrogenase 214 07/16/17 05:30: Sodium Level 137, Potassium Level 3.6, Chloride Level 101, Carbon Dioxide Level 26, Anion Gap 10, Blood Urea Nitrogen 13, Creatinine 0.8, Estimat Glomerular Filtration Rate , Glucose Level 84, Calcium Level 8.0L, White Blood Count 18.9H , Red Blood Count 3.51L, Hemoglobin 8.2L, Hematocrit 27.1L, Mean Corpuscular Volume 77L, Mean Corpuscular Hemoglobin 23.3L, Mean Corpuscular Hemoglobin Concent 30.2L, Red Cell Distribution Width 17.8H, Platelet Count 376, Mean Platelet Volume 6.6, Neutrophils (%) (Auto) , Lymphocytes (%) (Auto) , Monocytes (%) (Auto) , Eosinophils (%) (Auto) , Basophils (%) (Auto) , Differential Total Cells Counted 100, Neutrophils % (Manual) 71, Lymphocytes % ( Manual) 12L, Monocytes % (Manual) 14H, Eosinophils % (Manual) 2, Basophils % ( Manual) 1, Band Neutrophils 0, Platelet Estimate Adequate, Platelet Morphology Normal, Hypochromasia 2+, Anisocytosis 1+, Microcytosis 1+, Pro-B-Type Natriuretic Peptide 1347H Current Medications Medications (Trade) Dose Ordered Sig/Ana Maria Route PRN Reason Start Time Stop Time Status Last Admin Dose Admin Acetaminophen (Tylenol) 650 mg Q4H PRN ORAL FEVER 07/12/17 14:45 08/11/17 14:44 07/13/17 16:35 Albuterol/ Ipratropium (Albuterol/ Ipratropium) 3 ml Q4H PRN HHN Shortness of Breath 07/15/17 14:45 07/20/17 14:44 07/16/17 14:05 Amlodipine Besylate (Norvasc) 10 mg DAILY ORAL 07/13/17 09:00 08/12/17 08:59 07/16/17 08:20 Cefepime HCl 2 gm/ Sodium Chloride 55 ml @ 110 mls/hr Q24H IVPB 07/14/17 18:30 07/21/17 18:29 07/15/17 17:30 Dextrose (Dextrose 50%) STAT PRN IV Hypoglycemia 07/12/17 14:45 08/11/17 14:44 Gabapentin (Neurontin) 300 mg BEDTIME ORAL 07/12/17 21:00 08/11/17 20:59 07/15/17 20:30 Glimepiride (Amaryl) 2 mg BEFORE BREAKFAST ORAL 07/13/17 06:30 08/12/17 06:29 07/16/17 06:30 Heparin Sodium (Porcine) (Heparin 5000 units/ml) 5,000 units EVERY 12 HOURS SUBQ 07/12/17 21:00 08/11/17 20:59 07/16/17 08:22 Insulin Aspart (NovoLOG) BEFORE MEALS AND HS SUBQ 07/12/17 17:30 08/11/17 17:29 07/15/17 20:32 Iron Sucrose 100 mg/Sodium Chloride 60 ml @ 240 mls/hr BEDTIME IV 07/15/17 21:00 07/19/17 21:14 07/16/17 00:49 Morphine Sulfate (Morphine Sulfate) 2 mg Q4H PRN IVP For Pain 07/14/17 09:00 07/21/17 08:59 07/15/17 20:30 Ondansetron HCl (Zofran) 4 mg Q6H PRN IVP Nausea & Vomiting 07/12/17 14:45 08/11/17 14:44 Polyethylene Glycol (Miralax) 17 gm DAILYPRN PRN ORAL Constipation 07/12/17 14:45 08/11/17 14:44 Promethazine HCl/ Codeine (Phenergan with Codeine) 5 ml Q4H PRN ORAL For Cough 07/12/17 14:45 08/11/17 14:44 07/16/17 00:12 Vancomycin HCl (Vanco rx to dose) 1 ea DAILY PRN MISC PRN RX TO DOSE PROTOCOL 07/12/17 17:45 08/11/17 17:44 Vancomycin/Sodium Chloride 250 ml @ 166.667 mls/hr Q12HR@1000,2200 IVPB 07/15/17 22:00 07/20/17 21:59 07/16/17 10:10 KYMBERLY JURADO Jul 16, 2017 15:35
[2017-07-16 16:00] VITALS: BP 150/69
[2017-07-16] MEDS: Cefepime HCl 2 GM in NS 55 ML IVPB SCH (17:42)
[2017-07-16 20:00] VITALS: BP 156/60
[2017-07-16] MEDS: Morphine Sulfate 2mg/ml Inj IVP PRN (21:52)
--- NOTE | 2017-07-16 23:32 | Cardiology Progress Note ---
Assessment/Plan Assessment/Plan 1. Dyspnea, most likely due to community-acquired pneumonia. Echocardiography reveals normal LV systolic function with LVEF at 65%. 2. Severe pulmonary HTN by echo, ? due to underlying COPD. 3. History of hypertension, start Bystolic 5mg daily. 4. History of diabetes mellitus. 5. ST due to hypoxemia/sepsis. Subjective Subjective Sinus tachycardia at 101. Objective Last 24 Hour Vital Signs Date Time Temp Pulse Resp B/P (MAP) Pulse Ox O2 Delivery O2 Flow Rate FiO2 07/16/17 20:00 97.7 101 22 156/60 94 Nasal Cannula 07/16/17 19:30 94 20 Nasal Cannula 2.0 28 07/16/17 16:00 98.1 101 20 150/69 93 07/16/17 16:00 95 07/16/17 14:09 94 22 97 Nasal Cannula 3.0 32 07/16/17 13:57 89 18 93 Venturi Mask 3.0 32 07/16/17 12:00 96.8 87 20 140/72 94 07/16/17 12:00 97 07/16/17 08:20 103 146/72 07/16/17 08:00 98.2 103 20 146/72 90 07/16/17 08:00 102 07/16/17 07:25 90 10 Nasal Cannula 3.0 36 07/16/17 04:11 97.9 101 20 149/73 94 07/16/17 04:00 92 07/16/17 00:25 97.7 109 20 150/75 94 07/16/17 00:00 105 Intake and Output 07/15/17 07/16/17 19:00 07:00 Intake Total 1383.334 ml 310.000 ml Output Total 1000 ml Balance 1383.334 ml -690.000 ml Intake Oral 940 ml IV Total 443.334 ml 310.000 ml Output Urine Total 1000 ml # Voids 1 4 2D Echo: LVEF 65%, RVSP 60 mmHg, Mild MR, Grade I lVDD, Mild , NORMA at 1.5 cm2 Laboratory Tests Test 07/16/17 05:30 07/16/17 21:20 White Blood Count 18.9 K/UL (4.8-10.8) H Red Blood Count 3.51 M/UL (4.20-5.40) L Hemoglobin 8.2 G/DL (12.0-16.0) L Hematocrit 27.1 % (37.0-47.0) L Mean Corpuscular Volume 77 FL (80-99) L Mean Corpuscular Hemoglobin 23.3 PG (27.0-31.0) L Mean Corpuscular Hemoglobin Concent 30.2 G/DL (32.0-36.0) L Red Cell Distribution Width 17.8 % (11.6-14.8) H Platelet Count 376 K/UL (150-450) Mean Platelet Volume 6.6 FL (6.5-10.1) Neutrophils (%) (Auto) % (45.0-75.0) Lymphocytes (%) (Auto) % (20.0-45.0) Monocytes (%) (Auto) % (1.0-10.0) Eosinophils (%) (Auto) % (0.0-3.0) Basophils (%) (Auto) % (0.0-2.0) Differential Total Cells Counted 100 Neutrophils % (Manual) 71 % (45-75) Lymphocytes % (Manual) 12 % (20-45) L Monocytes % (Manual) 14 % (1-10) H Eosinophils % (Manual) 2 % (0-3) Basophils % (Manual) 1 % (0-2) Band Neutrophils 0 % (0-8) Platelet Estimate Adequate Platelet Morphology Normal Hypochromasia 2+ Anisocytosis 1+ Microcytosis 1+ Sodium Level 137 MMOL/L (136-145) Potassium Level 3.6 MMOL/L (3.5-5.1) Chloride Level 101 MMOL/L (98-107) Carbon Dioxide Level 26 MMOL/L (21-32) Anion Gap 10 mmol/L (5-15) Blood Urea Nitrogen 13 mg/dL (7-18) Creatinine 0.8 MG/DL (0.55-1.30) Estimat Glomerular Filtration Rate mL/min (>60) Glucose Level 84 MG/DL (74-106) Calcium Level 8.0 MG/DL (8.5-10.1) L Pro-B-Type Natriuretic Peptide 1347 pg/mL (0-125) H Vancomycin Level Trough 12.0 ug/mL (5.0-12.0) Microbiology Date/Time Source Procedure Growth Status 07/15/17 09:30 Sputum Gram Stain - Final Resulted 07/15/17 09:30 Sputum Sputum Culture - Preliminary NO GROWTH AFTER 24 HOURS Resulted Objective HEENT: Atraumatic and normocephalic. Anicteric. Pupils are equal, round, and reactive to light and accommodation. Periorbital edema is evident. NECK: JVP is less than 5 cm. No carotid bruit. Carotid upstrokes 2+ bilaterally. CARDIOVASCULAR: Normal S1 and S2. Regular rate and rhythm. Tachycardic. 2/6 ESM at LSB, no gallops or rubs. LUNGS: Bilateral crackles, mostly in the basilar parts. ABDOMEN: Soft, nontender, and nondistended. No hepatosplenomegaly. Positive bowel sounds. EXTREMITIES: No evidence of edema, clubbing, or cyanosis. MERNA MCCLELLAN Jul 16, 2017 23:32
[2017-07-17] VITALS: BP 119/65
[2017-07-17 04:00] VITALS: BP 135/50
[2017-07-17] MEDS: NovoLOG Insulin Flexpen SUBQ SCH ×4 (06:30→21:48)
[2017-07-17] MEDS: Glimepiride 1mg tab ORAL SCH (06:37)
[2017-07-17 08:00] VITALS: BP 146/71
[2017-07-17] MEDS: Bystolic 2.5mg Tab ORAL SCH (08:49)
[2017-07-17] MEDS: Heparin 5000 units/ml inj SUBQ SCH ×2 (08:52→21:47)
--- NOTE | 2017-07-17 08:54 | Nephrology Progress Note ---
Assessment/Plan Assessment 1.dulce 2.hypocalcemia 3.hyponatremia 4.pna Plan plan to continue iv antibiotic mix all ivp with ns.9 check vit d monitoring renal function avoid NSAID replace electrolyte as need it Subjective Subjective alert and awake c/o sob,cough Objective Objective Last 24 Hour Vital Signs Date Time Temp Pulse Resp B/P (MAP) Pulse Ox O2 Delivery O2 Flow Rate FiO2 07/17/17 08:49 91 146/71 07/17/17 08:00 97.3 91 20 146/71 92 Nasal Cannula 07/17/17 04:00 90 07/17/17 04:00 97.7 90 22 135/50 92 Nasal Cannula 07/17/17 00:00 97.9 96 20 119/65 95 Nasal Cannula 07/17/17 00:00 92 07/16/17 20:00 107 07/16/17 20:00 97.7 101 22 156/60 94 Nasal Cannula 07/16/17 19:30 94 20 Nasal Cannula 2.0 28 07/16/17 16:00 98.1 101 20 150/69 93 07/16/17 16:00 95 07/16/17 14:09 94 22 97 Nasal Cannula 3.0 32 07/16/17 13:57 89 18 93 Venturi Mask 3.0 32 07/16/17 12:00 96.8 87 20 140/72 94 07/16/17 12:00 97 Intake and Output 07/16/17 07/17/17 19:00 07:00 Intake Total 1053.334 ml 600 ml Balance 1053.334 ml 600 ml Intake Oral 720 ml 600 ml IV Total 333.334 ml # Voids 3 Laboratory Tests 07/16/17 21:20: Vancomycin Level Trough 12.0 Height (Feet): 5 Height (Inches): 0.00 Weight (Pounds): 205 Objective HEENT: Atraumatic and normocephalic. Anicteric. Pupils are equal, round, and reactive to light and accommodation. Periorbital edema is evident. NECK: JVP is less than 5 cm. No carotid bruit. Carotid upstrokes 2+ bilaterally. CARDIOVASCULAR: Normal S1 and S2. Regular rate and rhythm. Tachycardic. No murmurs, gallops, or rubs. LUNGS: Bilateral crackles, mostly in the basilar parts. ABDOMEN: Soft, nontender, and nondistended. No hepatosplenomegaly. Positive bowel sounds. EXTREMITIES: No evidence of edema, clubbing, or cyanosis. BLAIRE SANCHEZ Jul 17, 2017 08:54
[2017-07-17 09:24] LABS: EOSINOPHILS % (AUTO) 4.4 % (0.0-3.0); HEMATOCRIT 27.7 % (37.0-47.0); HEMOGLOBIN 8.1 G/DL (12.0-16.0); LYMPHOCYTES % (AUTO) 13.2 % (20.0-45.0); MEAN CORPUSCULAR VOLUME 77 FL (80-99); MONOCYTES % (AUTO) 9.9 % (1.0-10.0); NEUTROPHILS % (AUTO) 69.6 % (45.0-75.0); PLATELET COUNT 390 K/UL (150-450); RED BLOOD COUNT 3.59 M/UL (4.20-5.40); RED CELL DISTRIBUTION WIDTH 17.6 % (11.6-14.8); WHITE BLOOD COUNT 15.9 K/UL (4.8-10.8)
[2017-07-17 09:33] LABS: ANION GAP 7 mmol/L (5-15); BLOOD UREA NITROGEN 13 mg/dL (7-18); CARBON DIOXIDE 28 MMOL/L (21-32); CHLORIDE 102 MMOL/L (98-107); CREATININE 0.8 MG/DL (0.55-1.30); POTASSIUM 3.7 MMOL/L (3.5-5.1); SODIUM 137 MMOL/L (136-145)
[2017-07-17] MEDS: Vancomycin 1gm/D5W 275ml IVPB SCH ×4 (09:49→22:02)
[2017-07-17] MEDS ORDERED: Vancomycin 1gm/D5W 275ml IVPB SCH ×2 (10:00)
[2017-07-17 12:00] VITALS: BP 146/61
--- NOTE | 2017-07-17 12:50 | Cardiology Report ---
APPROVED REPORT EXAM: Two-dimensional and M-mode echocardiogram with Doppler and color Doppler. INDICATION Congestive Heart Failure M-Mode DIMENSIONS IVSd1.7 (0.7-1.1cm)Left Atrium (MM)3.7 (1.6-4.0cm) LVDd5.2 (3.5-5.6cm)Aortic Root2.9 (2.0-3.7cm) PWd1.4 (0.7-1.1cm)Aortic Cusp Exc.1.0 (1.5-2.0cm) IVSs2.2 cm LVDs3.1 (2.5-4.0cm) PWs1.7 cm Normal left ventricular chamber size, systolic function and wall motion. Left ventricular ejection fraction estimated to be 65-70 %. No evidence of left ventricular hypertrophy. No evidence of pericardial effusion. Mild bi- atrial enlargment. Thickened mitral valve leaflets with normal excursion. Mitral annulus and aortic root calcification. Pulmonic valve not well visualized. Normal tricuspid valve structure. IVC at normal size with physiologic collapse. A color flow and spectral Doppler study was performed and revealed: No aortic regurgitation. Peak aortic valve gradient of 33 mm Hg and a mean of 16 mmHg. Aortic valve area 1.5 cm2 calculated by continuity equation. Mild to Moderate mitral regurgitation. Mitral diastolic velocities suggest reduced left ventricular relaxation c/w mild LV diastolic dysfunction (Grade I ).. Mild tricuspid regurgitation. Tricuspid systolic velocities suggests peak right ventricular systolic pressure of 60 mmHg consistent with severe pulmonary hypertension. No Pulmonic regurgitation present.
--- NOTE | 2017-07-17 13:12 | Infectious Diseases Prog Note ---
Assessment/Plan Assessment/Plan A Pneumonia COPD Influenza exposure Acute renal failure DM type 2 Morbid obesity P; Continue Vancomycin & Zosyn will f/u cultures Subjective ROS Limited/Unobtainable: No Constitutional: Reports: no symptoms, other - doing better Respiratory: Reports: productive cough, other - decreased Cardiovascular: Reports: no symptoms Gastrointestinal/Abdominal: Reports: no symptoms Genitourinary: Reports: no symptoms Allergies: Coded Allergies: No Known Allergies (Unverified , 06/17/12) Objective Vital Signs Last 24 Hour Vital Signs Date Time Temp Pulse Resp B/P (MAP) Pulse Ox O2 Delivery O2 Flow Rate FiO2 07/17/17 08:49 91 146/71 07/17/17 08:00 97.3 91 20 146/71 92 Nasal Cannula 07/17/17 07:20 87 20 Nasal Cannula 2.0 28 07/17/17 04:00 90 07/17/17 04:00 97.7 90 22 135/50 92 Nasal Cannula 07/17/17 00:00 97.9 96 20 119/65 95 Nasal Cannula 07/17/17 00:00 92 07/16/17 20:00 107 07/16/17 20:00 97.7 101 22 156/60 94 Nasal Cannula 07/16/17 19:30 94 20 Nasal Cannula 2.0 28 07/16/17 16:00 98.1 101 20 150/69 93 07/16/17 16:00 95 07/16/17 14:09 94 22 97 Nasal Cannula 3.0 32 07/16/17 13:57 89 18 93 Venturi Mask 3.0 32 Height (Feet): 5 Height (Inches): 0.00 Weight (Pounds): 205 General Appearance: no acute distress HEENT: mucous membranes moist Respiratory/Chest: lungs clear Cardiovascular: normal rate Abdomen: soft, non tender Extremities: other - edema of legs Neurologic/Psychiatric: alert, oriented x 3, responsive Microbiology Date/Time Source Procedure Growth Status 07/15/17 09:30 Sputum Gram Stain - Final Resulted 07/15/17 09:30 Sputum Sputum Culture - Preliminary NO GROWTH AFTER 24 HOURS Resulted Laboratory Tests Test 07/16/17 21:20 07/17/17 09:10 Vancomycin Level Trough 12.0 ug/mL (5.0-12.0) White Blood Count 15.9 K/UL (4.8-10.8) H Red Blood Count 3.59 M/UL (4.20-5.40) L Hemoglobin 8.1 G/DL (12.0-16.0) L Hematocrit 27.7 % (37.0-47.0) L Mean Corpuscular Volume 77 FL (80-99) L Mean Corpuscular Hemoglobin 22.5 PG (27.0-31.0) L Mean Corpuscular Hemoglobin Concent 29.2 G/DL (32.0-36.0) L Red Cell Distribution Width 17.6 % (11.6-14.8) H Platelet Count 390 K/UL (150-450) Mean Platelet Volume 6.6 FL (6.5-10.1) Neutrophils (%) (Auto) 69.6 % (45.0-75.0) Lymphocytes (%) (Auto) 13.2 % (20.0-45.0) L Monocytes (%) (Auto) 9.9 % (1.0-10.0) Eosinophils (%) (Auto) 4.4 % (0.0-3.0) H Basophils (%) (Auto) 3.0 % (0.0-2.0) H Sodium Level 137 MMOL/L (136-145) Potassium Level 3.7 MMOL/L (3.5-5.1) Chloride Level 102 MMOL/L (98-107) Carbon Dioxide Level 28 MMOL/L (21-32) Anion Gap 7 mmol/L (5-15) Blood Urea Nitrogen 13 mg/dL (7-18) Creatinine 0.8 MG/DL (0.55-1.30) Estimat Glomerular Filtration Rate mL/min (>60) Glucose Level 132 MG/DL (74-106) H Calcium Level 8.0 MG/DL (8.5-10.1) L Current Medications Medications (Trade) Dose Ordered Sig/Ana Maria Route PRN Reason Start Time Stop Time Status Last Admin Dose Admin Acetaminophen (Tylenol) 650 mg Q4H PRN ORAL FEVER 07/12/17 14:45 08/11/17 14:44 07/13/17 16:35 Albuterol/ Ipratropium (Albuterol/ Ipratropium) 3 ml Q4H PRN HHN Shortness of Breath 07/15/17 14:45 07/20/17 14:44 07/16/17 14:05 Amlodipine Besylate (Norvasc) 10 mg DAILY ORAL 07/13/17 09:00 08/12/17 08:59 07/17/17 08:49 Cefepime HCl 2 gm/ Sodium Chloride 55 ml @ 110 mls/hr Q24H IVPB 07/14/17 18:30 07/21/17 18:29 07/16/17 17:42 Dextrose (Dextrose 50%) STAT PRN IV Hypoglycemia 07/12/17 14:45 08/11/17 14:44 Gabapentin (Neurontin) 300 mg BEDTIME ORAL 07/12/17 21:00 08/11/17 20:59 07/16/17 20:36 Glimepiride (Amaryl) 2 mg BEFORE BREAKFAST ORAL 07/13/17 06:30 08/12/17 06:29 07/17/17 06:37 Heparin Sodium (Porcine) (Heparin 5000 units/ml) 5,000 units EVERY 12 HOURS SUBQ 07/12/17 21:00 08/11/17 20:59 07/17/17 08:52 Insulin Aspart (NovoLOG) BEFORE MEALS AND HS SUBQ 07/12/17 17:30 08/11/17 17:29 07/17/17 11:25 Iron Sucrose 100 mg/Sodium Chloride 60 ml @ 240 mls/hr BEDTIME IV 07/15/17 21:00 07/19/17 21:14 07/16/17 20:35 Morphine Sulfate (Morphine Sulfate) 2 mg Q4H PRN IVP For Pain 07/14/17 09:00 07/21/17 08:59 07/16/17 21:52 Nebivolol (Bystolic) 5 mg DAILY ORAL 07/17/17 09:00 08/16/17 08:59 07/17/17 08:49 Ondansetron HCl (Zofran) 4 mg Q6H PRN IVP Nausea & Vomiting 07/12/17 14:45 08/11/17 14:44 Polyethylene Glycol (Miralax) 17 gm DAILYPRN PRN ORAL Constipation 07/12/17 14:45 08/11/17 14:44 Promethazine HCl/ Codeine (Phenergan with Codeine) 5 ml Q4H PRN ORAL For Cough 07/12/17 14:45 08/11/17 14:44 07/16/17 20:36 Vancomycin HCl (Vanco rx to dose) 1 ea DAILY PRN MISC PRN RX TO DOSE PROTOCOL 07/12/17 17:45 08/11/17 17:44 Vancomycin HCl 1 gm/Dextrose 275 ml @ 183.708 mls/hr Q12H IVPB 07/17/17 10:00 07/22/17 09:59 07/17/17 09:49 ARLENE BAEZ Jul 17, 2017 13:12
--- NOTE | 2017-07-17 14:39 | Pulmonology Progress Note ---
Assessment/Plan Problems: (1) Acute hypoxemic respiratory failure (2) Sepsis (3) COPD (chronic obstructive pulmonary disease) (4) Community acquired pneumonia (5) Chronic liver disease Assessment/Plan wbc lower today less tachycardic continue cefepime, vancomycin and Tamiflue respiratory treatment med/surg Subjective ROS Limited/Unobtainable: No Interval Events: less tachycardic Allergies: Coded Allergies: No Known Allergies (Unverified , 06/17/12) Objective Last 24 Hour Vital Signs Date Time Temp Pulse Resp B/P (MAP) Pulse Ox O2 Delivery O2 Flow Rate FiO2 07/17/17 08:49 91 146/71 07/17/17 08:00 97.3 91 20 146/71 92 Nasal Cannula 07/17/17 07:20 87 20 Nasal Cannula 2.0 28 07/17/17 04:00 90 07/17/17 04:00 97.7 90 22 135/50 92 Nasal Cannula 07/17/17 00:00 97.9 96 20 119/65 95 Nasal Cannula 07/17/17 00:00 92 07/16/17 20:00 107 07/16/17 20:00 97.7 101 22 156/60 94 Nasal Cannula 07/16/17 19:30 94 20 Nasal Cannula 2.0 28 07/16/17 16:00 98.1 101 20 150/69 93 07/16/17 16:00 95 Intake and Output 07/16/17 07/17/17 19:00 07:00 Intake Total 1053.334 ml 600 ml Balance 1053.334 ml 600 ml Intake Oral 720 ml 600 ml IV Total 333.334 ml # Voids 3 Objective General Appearance: WD/WN, no apparent distress Lines, tubes and drains: peripheral HEENT: normocephalic, atraumatic Neck: non-tender, normal alignment Respiratory/Chest: chest wall non-tender, lungs clear Cardiovascular/Chest: regular rhythm Abdomen: normal bowel sounds, non tender Extremities: normal range of motion, non-tender Skin Exam: normal pigmentation Neurologic: no motor/sensory deficits Microbiology Date/Time Source Procedure Growth Status 07/15/17 09:30 Sputum Gram Stain - Final Resulted 07/15/17 09:30 Sputum Sputum Culture - Preliminary NO GROWTH AFTER 24 HOURS Resulted Laboratory Tests 07/16/17 21:20: Vancomycin Level Trough 12.0 07/17/17 09:10: White Blood Count 15.9H, Red Blood Count 3.59L, Hemoglobin 8.1L, Hematocrit 27.7L, Mean Corpuscular Volume 77L, Mean Corpuscular Hemoglobin 22.5L, Mean Corpuscular Hemoglobin Concent 29.2L, Red Cell Distribution Width 17.6H, Platelet Count 390, Mean Platelet Volume 6.6, Neutrophils (%) (Auto) 69.6, Lymphocytes (%) (Auto) 13.2L, Monocytes (%) (Auto) 9.9, Eosinophils (%) (Auto) 4.4H, Basophils (%) (Auto) 3.0H, Sodium Level 137, Potassium Level 3.7, Chloride Level 102, Carbon Dioxide Level 28, Anion Gap 7, Blood Urea Nitrogen 13 , Creatinine 0.8, Estimat Glomerular Filtration Rate , Glucose Level 132H, Calcium Level 8.0L Current Medications Medications (Trade) Dose Ordered Sig/Ana Maria Route PRN Reason Start Time Stop Time Status Last Admin Dose Admin Acetaminophen (Tylenol) 650 mg Q4H PRN ORAL FEVER 07/12/17 14:45 08/11/17 14:44 07/13/17 16:35 Albuterol/ Ipratropium (Albuterol/ Ipratropium) 3 ml Q4H PRN HHN Shortness of Breath 07/15/17 14:45 07/20/17 14:44 07/16/17 14:05 Amlodipine Besylate (Norvasc) 10 mg DAILY ORAL 07/13/17 09:00 08/12/17 08:59 07/17/17 08:49 Cefepime HCl 2 gm/ Sodium Chloride 55 ml @ 110 mls/hr Q24H IVPB 07/14/17 18:30 07/21/17 18:29 07/16/17 17:42 Dextrose (Dextrose 50%) STAT PRN IV Hypoglycemia 07/12/17 14:45 08/11/17 14:44 Gabapentin (Neurontin) 300 mg BEDTIME ORAL 07/12/17 21:00 08/11/17 20:59 07/16/17 20:36 Glimepiride (Amaryl) 2 mg BEFORE BREAKFAST ORAL 07/13/17 06:30 08/12/17 06:29 07/17/17 06:37 Heparin Sodium (Porcine) (Heparin 5000 units/ml) 5,000 units EVERY 12 HOURS SUBQ 07/12/17 21:00 08/11/17 20:59 07/17/17 08:52 Insulin Aspart (NovoLOG) BEFORE MEALS AND HS SUBQ 07/12/17 17:30 08/11/17 17:29 07/17/17 11:25 Iron Sucrose 100 mg/Sodium Chloride 60 ml @ 240 mls/hr BEDTIME IV 07/15/17 21:00 07/19/17 21:14 07/16/17 20:35 Morphine Sulfate (Morphine Sulfate) 2 mg Q4H PRN IVP For Pain 07/14/17 09:00 07/21/17 08:59 07/16/17 21:52 Nebivolol (Bystolic) 5 mg DAILY ORAL 07/17/17 09:00 08/16/17 08:59 07/17/17 08:49 Ondansetron HCl (Zofran) 4 mg Q6H PRN IVP Nausea & Vomiting 07/12/17 14:45 08/11/17 14:44 Polyethylene Glycol (Miralax) 17 gm DAILYPRN PRN ORAL Constipation 07/12/17 14:45 08/11/17 14:44 Promethazine HCl/ Codeine (Phenergan with Codeine) 5 ml Q4H PRN ORAL For Cough 07/12/17 14:45 08/11/17 14:44 07/16/17 20:36 Vancomycin HCl (Vanco rx to dose) 1 ea DAILY PRN MISC PRN RX TO DOSE PROTOCOL 07/12/17 17:45 08/11/17 17:44 Vancomycin HCl 1 gm/Dextrose 275 ml @ 183.708 mls/hr Q12H IVPB 07/17/17 10:00 07/22/17 09:59 07/17/17 09:49 KYMBERLY JURADO Jul 17, 2017 14:39
--- NOTE | 2017-07-17 15:18 | General Progress Note ---
Assessment/Plan Problem List: (1) Community acquired pneumonia ICD Codes: J18.9 - Pneumonia, unspecified organism SNOMED: 419802723 (2) COPD exacerbation ICD Codes: J44.1 - Chronic obstructive pulmonary disease with (acute) exacerbation SNOMED: 066866582 (3) Acute hypoxemic respiratory failure ICD Codes: J96.01 - Acute respiratory failure with hypoxia SNOMED: 699124572 (4) Leukocytosis ICD Codes: D72.829 - Elevated white blood cell count, unspecified SNOMED: 610021363, 521227338 (5) Influenza-like illness ICD Codes: R69 - Illness, unspecified SNOMED: 64728691 (6) Cough ICD Codes: R05 - Cough SNOMED: 49004487 (7) Sepsis ICD Codes: A41.9 - Sepsis, unspecified organism SNOMED: 54335363 Qualifiers: Qualified Codes: A41.9 - Sepsis, unspecified organism (8) Pneumonia ICD Codes: J18.9 - Pneumonia SNOMED: 967218271 Status: stable, progressing, tolerating diet Assessment/Plan o2 pulm tx abx ot pt diet cbc bmp am dc plan w hh Subjective Constitutional: Reports: weakness Allergies: Coded Allergies: No Known Allergies (Unverified , 06/17/12) All Systems: reviewed and negative except above Subjective sitting tired o2 nc Objective Last 24 Hour Vital Signs Date Time Temp Pulse Resp B/P (MAP) Pulse Ox O2 Delivery O2 Flow Rate FiO2 07/17/17 12:00 97.3 81 20 146/61 93 Nasal Cannula 4.0 07/17/17 08:49 91 146/71 07/17/17 08:00 97.3 91 20 146/71 92 Nasal Cannula 07/17/17 07:20 87 20 Nasal Cannula 2.0 28 07/17/17 04:00 90 07/17/17 04:00 97.7 90 22 135/50 92 Nasal Cannula 07/17/17 00:00 97.9 96 20 119/65 95 Nasal Cannula 07/17/17 00:00 92 07/16/17 20:00 107 07/16/17 20:00 97.7 101 22 156/60 94 Nasal Cannula 07/16/17 19:30 94 20 Nasal Cannula 2.0 28 07/16/17 16:00 98.1 101 20 150/69 93 07/16/17 16:00 95 Intake and Output 07/16/17 07/17/17 19:00 07:00 Intake Total 1053.334 ml 600 ml Balance 1053.334 ml 600 ml Intake Oral 720 ml 600 ml IV Total 333.334 ml # Voids 3 Laboratory Tests 07/16/17 21:20: Vancomycin Level Trough 12.0 07/17/17 09:10: White Blood Count 15.9H, Red Blood Count 3.59L, Hemoglobin 8.1L, Hematocrit 27.7L, Mean Corpuscular Volume 77L, Mean Corpuscular Hemoglobin 22.5L, Mean Corpuscular Hemoglobin Concent 29.2L, Red Cell Distribution Width 17.6H, Platelet Count 390, Mean Platelet Volume 6.6, Neutrophils (%) (Auto) 69.6, Lymphocytes (%) (Auto) 13.2L, Monocytes (%) (Auto) 9.9, Eosinophils (%) (Auto) 4.4H, Basophils (%) (Auto) 3.0H, Sodium Level 137, Potassium Level 3.7, Chloride Level 102, Carbon Dioxide Level 28, Anion Gap 7, Blood Urea Nitrogen 13 , Creatinine 0.8, Estimat Glomerular Filtration Rate , Glucose Level 132H, Calcium Level 8.0L Height (Feet): 5 Height (Inches): 0.00 Weight (Pounds): 205 General Appearance: lethargic EENT: normal ENT inspection Neck: normal alignment Cardiovascular: normal peripheral pulses, normal rate, regular rhythm Respiratory/Chest: decreased breath sounds Abdomen: normal bowel sounds, non tender, soft Extremities: normal inspection Edema: no edema noted Arm (L), no edema noted Arm (R), no edema noted Leg (L), no edema noted Leg (R), no edema noted Pedal (L), no edema noted Pedal (R), no edema noted Generalized Neurologic: responsive, motor weakness Skin: normal pigmentation, warm/dry QAMAR WALLACE Jul 17, 2017 15:18
--- NOTE | 2017-07-17 15:50 | Diagnostic Imaging Report ---
Indication: Shortness of breath Technique: XRAY Chest 1v Comparison: 07/12/2017 Findings: Cardiac silhouette is stable. Atherosclerotic changes are seen. Bilateral interstitial and predominantly right perihilar and basilar airspace infiltrates are again noted. Osseous structures are stable. Impression: No significant change from 07/12/2017.
[2017-07-17 16:00] VITALS: BP 142/66
[2017-07-17] MEDS: Cefepime HCl 2 GM in NS 55 ML IVPB SCH (18:08)
[2017-07-17 20:49] VITALS: BP 155/64
[2017-07-17] MEDS: Iron Sucrose 100 MG in NS 55 ML IV SCH (21:44)
[2017-07-17] MEDS: Morphine Sulfate 2mg/ml Inj IVP PRN (21:49)
[2017-07-18 00:24] VITALS: BP 128/51
[2017-07-18 04:24] VITALS: BP 132/56
[2017-07-18] MEDS: Glimepiride 1mg tab ORAL SCH (06:25)
[2017-07-18] MEDS: NovoLOG Insulin Flexpen SUBQ SCH ×4 (06:26→20:21)
[2017-07-18 08:00] VITALS: BP 154/69
--- NOTE | 2017-07-18 08:32 | Nephrology Progress Note ---
Assessment/Plan Assessment 1.dulce 2.hypocalcemia 3.hyponatremia 4.pna Plan plan to continue iv antibiotic mix all ivp with ns.9 check vit d monitoring renal function avoid NSAID replace electrolyte as need it Subjective Subjective alert and awake c/o sob,cough Objective Objective Last 24 Hour Vital Signs Date Time Temp Pulse Resp B/P (MAP) Pulse Ox O2 Delivery O2 Flow Rate FiO2 07/18/17 04:24 96.8 82 18 132/56 95 Room Air 07/18/17 04:00 78 07/18/17 00:24 98.2 82 18 128/51 95 Nasal Cannula 07/18/17 00:00 80 07/17/17 20:49 96.5 93 20 155/64 95 Nasal Cannula 07/17/17 20:24 93 Nasal Cannula 3.0 32 07/17/17 20:24 Nasal Cannula 3.0 32 07/17/17 20:00 84 07/17/17 19:30 84 20 Nasal Cannula 3.0 32 07/17/17 16:00 81 07/17/17 16:00 98.1 79 20 142/66 90 Nasal Cannula 2.0 07/17/17 12:00 83 07/17/17 12:00 97.3 81 20 146/61 93 Nasal Cannula 4.0 07/17/17 08:49 91 146/71 Intake and Output 07/17/17 07/18/17 19:00 07:00 Intake Total 960 ml 515.000 ml Output Total 800 ml 600 ml Balance 160 ml -85.000 ml Intake Oral 960 ml IV Total 515.000 ml Output Urine Total 800 ml 600 ml # Voids 2 Laboratory Tests 07/17/17 09:10: White Blood Count 15.9H, Red Blood Count 3.59L, Hemoglobin 8.1L, Hematocrit 27.7L, Mean Corpuscular Volume 77L, Mean Corpuscular Hemoglobin 22.5L, Mean Corpuscular Hemoglobin Concent 29.2L, Red Cell Distribution Width 17.6H, Platelet Count 390, Mean Platelet Volume 6.6, Neutrophils (%) (Auto) 69.6, Lymphocytes (%) (Auto) 13.2L, Monocytes (%) (Auto) 9.9, Eosinophils (%) (Auto) 4.4H, Basophils (%) (Auto) 3.0H, Sodium Level 137, Potassium Level 3.7, Chloride Level 102, Carbon Dioxide Level 28, Anion Gap 7, Blood Urea Nitrogen 13 , Creatinine 0.8, Estimat Glomerular Filtration Rate , Glucose Level 132H, Calcium Level 8.0L Height (Feet): 5 Height (Inches): 0.00 Weight (Pounds): 205 Objective HEENT: Atraumatic and normocephalic. Anicteric. Pupils are equal, round, and reactive to light and accommodation. Periorbital edema is evident. NECK: JVP is less than 5 cm. No carotid bruit. Carotid upstrokes 2+ bilaterally. CARDIOVASCULAR: Normal S1 and S2. Regular rate and rhythm. Tachycardic. No murmurs, gallops, or rubs. LUNGS: Bilateral crackles, mostly in the basilar parts. ABDOMEN: Soft, nontender, and nondistended. No hepatosplenomegaly. Positive bowel sounds. EXTREMITIES: No evidence of edema, clubbing, or cyanosis. BLAIRE SANCHEZ Jul 18, 2017 08:32
[2017-07-18] MEDS: Bystolic 2.5mg Tab ORAL SCH (09:45)
[2017-07-18] MEDS: Heparin 5000 units/ml inj SUBQ SCH ×2 (09:50→20:23)
[2017-07-18 09:52] LABS: BASOPHILS % (AUTO) 2.4 % (0.0-2.0); EOSINOPHILS % (AUTO) 4.3 % (0.0-3.0); HEMATOCRIT 29.4 % (37.0-47.0); HEMOGLOBIN 8.6 G/DL (12.0-16.0); LYMPHOCYTES % (AUTO) 16.1 % (20.0-45.0); MEAN CORPUSCULAR VOLUME 77 FL (80-99); MONOCYTES % (AUTO) 3.9 % (1.0-10.0); NEUTROPHILS % (AUTO) 73.3 % (45.0-75.0); PLATELET COUNT 324 K/UL (150-450); RED CELL DISTRIBUTION WIDTH 17.6 % (11.6-14.8); WHITE BLOOD COUNT 15.5 K/UL (4.8-10.8)
[2017-07-18 10:10] LABS: ANION GAP 9 mmol/L (5-15); BLOOD UREA NITROGEN 11 mg/dL (7-18); CALCIUM 9.3 MG/DL (8.5-10.1); CARBON DIOXIDE 26 MMOL/L (21-32); CHLORIDE 102 MMOL/L (98-107); CREATININE 0.9 MG/DL (0.55-1.30); POTASSIUM 4.1 MMOL/L (3.5-5.1); SODIUM 137 MMOL/L (136-145)
[2017-07-18] MEDS: Vancomycin 1gm/D5W 275ml IVPB SCH ×2 (10:27)
--- NOTE | 2017-07-18 10:52 | Infectious Diseases Prog Note ---
Assessment/Plan Assessment/Plan A Pneumonia improving COPD Influenza exposure Acute renal failure DM type 2 Morbid obesity P; discontinue Vancomycin , continue Zosyn will f/u cultures Subjective ROS Limited/Unobtainable: No Constitutional: Reports: no symptoms Respiratory: Reports: productive cough, other - improving Cardiovascular: Reports: dyspnea on exertion Gastrointestinal/Abdominal: Reports: no symptoms Genitourinary: Reports: no symptoms Allergies: Coded Allergies: No Known Allergies (Unverified , 06/17/12) Objective Vital Signs Last 24 Hour Vital Signs Date Time Temp Pulse Resp B/P (MAP) Pulse Ox O2 Delivery O2 Flow Rate FiO2 07/18/17 09:45 83 154/69 07/18/17 08:00 83 07/18/17 08:00 97.9 83 20 154/69 92 Room Air 07/18/17 06:38 82 Nasal Cannula 3.0 07/18/17 06:38 Nasal Cannula 3.0 07/18/17 06:38 82 17 Nasal Cannula 3.0 07/18/17 04:24 96.8 82 18 132/56 95 Room Air 07/18/17 04:00 78 07/18/17 00:24 98.2 82 18 128/51 95 Nasal Cannula 07/18/17 00:00 80 07/17/17 20:49 96.5 93 20 155/64 95 Nasal Cannula 07/17/17 20:24 93 Nasal Cannula 3.0 32 07/17/17 20:24 Nasal Cannula 3.0 32 07/17/17 20:00 84 07/17/17 19:30 84 20 Nasal Cannula 3.0 32 07/17/17 16:00 81 07/17/17 16:00 98.1 79 20 142/66 90 Nasal Cannula 2.0 07/17/17 12:00 83 07/17/17 12:00 97.3 81 20 146/61 93 Nasal Cannula 4.0 Height (Feet): 5 Height (Inches): 0.00 Weight (Pounds): 205 General Appearance: no acute distress HEENT: mucous membranes moist Respiratory/Chest: lungs clear Cardiovascular: normal rate Abdomen: soft, non tender Extremities: no edema Neurologic/Psychiatric: alert, oriented x 3, responsive Laboratory Tests Test 07/18/17 09:30 White Blood Count 15.5 K/UL (4.8-10.8) H Red Blood Count 3.80 M/UL (4.20-5.40) L Hemoglobin 8.6 G/DL (12.0-16.0) L Hematocrit 29.4 % (37.0-47.0) L Mean Corpuscular Volume 77 FL (80-99) L Mean Corpuscular Hemoglobin 22.6 PG (27.0-31.0) L Mean Corpuscular Hemoglobin Concent 29.2 G/DL (32.0-36.0) L Red Cell Distribution Width 17.6 % (11.6-14.8) H Platelet Count 324 K/UL (150-450) Mean Platelet Volume 6.8 FL (6.5-10.1) Neutrophils (%) (Auto) 73.3 % (45.0-75.0) Lymphocytes (%) (Auto) 16.1 % (20.0-45.0) L Monocytes (%) (Auto) 3.9 % (1.0-10.0) Eosinophils (%) (Auto) 4.3 % (0.0-3.0) H Basophils (%) (Auto) 2.4 % (0.0-2.0) H Sodium Level 137 MMOL/L (136-145) Potassium Level 4.1 MMOL/L (3.5-5.1) Chloride Level 102 MMOL/L (98-107) Carbon Dioxide Level 26 MMOL/L (21-32) Anion Gap 9 mmol/L (5-15) Blood Urea Nitrogen 11 mg/dL (7-18) Creatinine 0.9 MG/DL (0.55-1.30) Estimat Glomerular Filtration Rate mL/min (>60) Glucose Level 122 MG/DL (74-106) H Calcium Level 9.3 MG/DL (8.5-10.1) Vancomycin Level Trough 18.0 ug/mL (5.0-12.0) H Current Medications Medications (Trade) Dose Ordered Sig/Ana Maria Route PRN Reason Start Time Stop Time Status Last Admin Dose Admin Acetaminophen (Tylenol) 650 mg Q4H PRN ORAL FEVER 07/12/17 14:45 08/11/17 14:44 07/13/17 16:35 Albuterol/ Ipratropium (Albuterol/ Ipratropium) 3 ml Q4H PRN HHN Shortness of Breath 07/15/17 14:45 07/20/17 14:44 07/16/17 14:05 Amlodipine Besylate (Norvasc) 10 mg DAILY ORAL 07/13/17 09:00 08/12/17 08:59 07/18/17 09:45 Cefepime HCl 2 gm/ Sodium Chloride 55 ml @ 110 mls/hr Q24H IVPB 07/14/17 18:30 07/21/17 18:29 07/17/17 18:08 Dextrose (Dextrose 50%) STAT PRN IV Hypoglycemia 07/12/17 14:45 08/11/17 14:44 Gabapentin (Neurontin) 300 mg BEDTIME ORAL 07/12/17 21:00 08/11/17 20:59 07/17/17 21:45 Glimepiride (Amaryl) 2 mg BEFORE BREAKFAST ORAL 07/13/17 06:30 08/12/17 06:29 07/18/17 06:25 Heparin Sodium (Porcine) (Heparin 5000 units/ml) 5,000 units EVERY 12 HOURS SUBQ 07/12/17 21:00 08/11/17 20:59 07/18/17 09:50 Insulin Aspart (NovoLOG) BEFORE MEALS AND HS SUBQ 07/12/17 17:30 08/11/17 17:29 07/17/17 21:48 Iron Sucrose 100 mg/Sodium Chloride 60 ml @ 240 mls/hr BEDTIME IV 07/15/17 21:00 07/19/17 21:14 07/17/17 21:44 Morphine Sulfate (Morphine Sulfate) 2 mg Q4H PRN IVP For Pain 07/14/17 09:00 07/21/17 08:59 07/17/17 21:49 Nebivolol (Bystolic) 5 mg DAILY ORAL 07/17/17 09:00 08/16/17 08:59 07/18/17 09:45 Ondansetron HCl (Zofran) 4 mg Q6H PRN IVP Nausea & Vomiting 07/12/17 14:45 08/11/17 14:44 Polyethylene Glycol (Miralax) 17 gm DAILYPRN PRN ORAL Constipation 07/12/17 14:45 08/11/17 14:44 Promethazine HCl/ Codeine (Phenergan with Codeine) 5 ml Q4H PRN ORAL For Cough 07/12/17 14:45 08/11/17 14:44 07/16/17 20:36 Vancomycin HCl (Vanco rx to dose) 1 ea DAILY PRN MISC PRN RX TO DOSE PROTOCOL 07/12/17 17:45 08/11/17 17:44 Vancomycin HCl 1 gm/Dextrose 275 ml @ 183.708 mls/hr Q12H IVPB 07/17/17 10:00 07/18/17 21:59 07/18/17 10:27 Vancomycin/Sodium Chloride 250 ml @ 166.667 mls/hr Q12HR@1000,2200 IVPB 07/18/17 22:00 07/23/17 21:59 ARLENE BAEZ Jul 18, 2017 10:52
--- NOTE | 2017-07-18 11:46 | General Progress Note ---
Assessment/Plan Problem List: (1) Community acquired pneumonia ICD Codes: J18.9 - Pneumonia, unspecified organism SNOMED: 725528671 (2) COPD exacerbation ICD Codes: J44.1 - Chronic obstructive pulmonary disease with (acute) exacerbation SNOMED: 452950760 (3) Acute hypoxemic respiratory failure ICD Codes: J96.01 - Acute respiratory failure with hypoxia SNOMED: 114449199 (4) Leukocytosis ICD Codes: D72.829 - Elevated white blood cell count, unspecified SNOMED: 316432920, 097043715 (5) Influenza-like illness ICD Codes: R69 - Illness, unspecified SNOMED: 67105040 (6) Cough ICD Codes: R05 - Cough SNOMED: 95446898 (7) Sepsis ICD Codes: A41.9 - Sepsis, unspecified organism SNOMED: 42551128 Qualifiers: Qualified Codes: A41.9 - Sepsis, unspecified organism (8) Pneumonia ICD Codes: J18.9 - Pneumonia SNOMED: 610008785 Status: stable, progressing, tolerating diet Assessment/Plan o2 pulm tx abx ot pt diet cbc bmp am dc plan w hh Subjective Constitutional: Reports: weakness Allergies: Coded Allergies: No Known Allergies (Unverified , 06/17/12) All Systems: reviewed and negative except above Subjective sitting tired o2 nc Objective Last 24 Hour Vital Signs Date Time Temp Pulse Resp B/P (MAP) Pulse Ox O2 Delivery O2 Flow Rate FiO2 07/18/17 09:45 83 154/69 07/18/17 08:00 83 07/18/17 08:00 97.9 83 20 154/69 92 Room Air 07/18/17 06:38 82 Nasal Cannula 3.0 07/18/17 06:38 Nasal Cannula 3.0 07/18/17 06:38 82 17 Nasal Cannula 3.0 07/18/17 04:24 96.8 82 18 132/56 95 Room Air 07/18/17 04:00 78 07/18/17 00:24 98.2 82 18 128/51 95 Nasal Cannula 07/18/17 00:00 80 07/17/17 20:49 96.5 93 20 155/64 95 Nasal Cannula 07/17/17 20:24 93 Nasal Cannula 3.0 32 07/17/17 20:24 Nasal Cannula 3.0 32 07/17/17 20:00 84 07/17/17 19:30 84 20 Nasal Cannula 3.0 32 07/17/17 16:00 81 07/17/17 16:00 98.1 79 20 142/66 90 Nasal Cannula 2.0 07/17/17 12:00 83 07/17/17 12:00 97.3 81 20 146/61 93 Nasal Cannula 4.0 Intake and Output 07/17/17 07/18/17 19:00 07:00 Intake Total 960 ml 515.000 ml Output Total 800 ml 600 ml Balance 160 ml -85.000 ml Intake Oral 960 ml IV Total 515.000 ml Output Urine Total 800 ml 600 ml # Voids 2 Laboratory Tests 07/18/17 09:30: White Blood Count 15.5H, Red Blood Count 3.80L, Hemoglobin 8.6L, Hematocrit 29.4L, Mean Corpuscular Volume 77L, Mean Corpuscular Hemoglobin 22.6L, Mean Corpuscular Hemoglobin Concent 29.2L, Red Cell Distribution Width 17.6H, Platelet Count 324, Mean Platelet Volume 6.8, Neutrophils (%) (Auto) 73.3, Lymphocytes (%) (Auto) 16.1L, Monocytes (%) (Auto) 3.9, Eosinophils (%) (Auto) 4.3H, Basophils (%) (Auto) 2.4H, Sodium Level 137, Potassium Level 4.1, Chloride Level 102, Carbon Dioxide Level 26, Anion Gap 9, Blood Urea Nitrogen 11 , Creatinine 0.9, Estimat Glomerular Filtration Rate , Glucose Level 122H, Calcium Level 9.3, Vancomycin Level Trough 18.0H Height (Feet): 5 Height (Inches): 0.00 Weight (Pounds): 205 General Appearance: alert EENT: normal ENT inspection Neck: normal alignment Cardiovascular: normal peripheral pulses, normal rate, regular rhythm Respiratory/Chest: decreased breath sounds Abdomen: normal bowel sounds, non tender, soft Extremities: normal inspection Edema: no edema noted Arm (L), no edema noted Arm (R), no edema noted Leg (L), no edema noted Leg (R), no edema noted Pedal (L), no edema noted Pedal (R), no edema noted Generalized Neurologic: responsive, motor weakness Skin: normal pigmentation, warm/dry QAMAR WALLACE Jul 18, 2017 11:46
[2017-07-18 12:00] VITALS: BP 130/54
[2017-07-18] MEDS ORDERED: Miralax 17gm pkt ORAL PRN (13:30)
[2017-07-18] MEDS ORDERED: Albuterol/Ipratropium 3ml neb HHN PRN (13:30)
[2017-07-18 16:00] VITALS: BP 115/50
[2017-07-18] MEDS: Promethazine/Codeine 5ml UD ORAL PRN (18:00)
--- NOTE | 2017-07-18 18:29 | Pulmonology Progress Note ---
Assessment/Plan Problems: (1) Acute hypoxemic respiratory failure (2) Sepsis (3) COPD (chronic obstructive pulmonary disease) (4) Community acquired pneumonia (5) Chronic liver disease Assessment/Plan wbc lower today less tachycardic continue cefepime, vancomycin and Tamiflue respiratory treatment med/surg dc planning soon Subjective ROS Limited/Unobtainable: No Constitutional: Reports: no symptoms HEENT: Repors: no symptoms Respiratory: Reports: no symptoms Allergies: Coded Allergies: No Known Allergies (Unverified , 06/17/12) Objective Last 24 Hour Vital Signs Date Time Temp Pulse Resp B/P (MAP) Pulse Ox O2 Delivery O2 Flow Rate FiO2 07/18/17 16:00 97.4 92 20 115/50 93 Room Air 07/18/17 12:00 97.7 90 22 130/54 91 Nasal Cannula 2.0 07/18/17 09:45 83 154/69 07/18/17 08:00 83 07/18/17 08:00 97.9 83 20 154/69 92 Room Air 07/18/17 06:38 82 Nasal Cannula 3.0 07/18/17 06:38 Nasal Cannula 3.0 07/18/17 06:38 82 17 Nasal Cannula 3.0 07/18/17 04:24 96.8 82 18 132/56 95 Room Air 07/18/17 04:00 78 07/18/17 00:24 98.2 82 18 128/51 95 Nasal Cannula 07/18/17 00:00 80 07/17/17 20:49 96.5 93 20 155/64 95 Nasal Cannula 07/17/17 20:24 93 Nasal Cannula 3.0 32 07/17/17 20:24 Nasal Cannula 3.0 32 07/17/17 20:00 84 07/17/17 19:30 84 20 Nasal Cannula 3.0 32 Intake and Output 07/17/17 07/18/17 19:00 07:00 Intake Total 960 ml 515.000 ml Output Total 800 ml 600 ml Balance 160 ml -85.000 ml Intake Oral 960 ml IV Total 515.000 ml Output Urine Total 800 ml 600 ml # Voids 2 Objective General Appearance: WD/WN, no apparent distress Lines, tubes and drains: peripheral HEENT: normocephalic, atraumatic Neck: non-tender, normal alignment Respiratory/Chest: chest wall non-tender, lungs clear Cardiovascular/Chest: regular rhythm Abdomen: normal bowel sounds, non tender Extremities: normal range of motion, non-tender Skin Exam: normal pigmentation Neurologic: no motor/sensory deficits Laboratory Tests 07/18/17 09:30: White Blood Count 15.5H, Red Blood Count 3.80L, Hemoglobin 8.6L, Hematocrit 29.4L, Mean Corpuscular Volume 77L, Mean Corpuscular Hemoglobin 22.6L, Mean Corpuscular Hemoglobin Concent 29.2L, Red Cell Distribution Width 17.6H, Platelet Count 324, Mean Platelet Volume 6.8, Neutrophils (%) (Auto) 73.3, Lymphocytes (%) (Auto) 16.1L, Monocytes (%) (Auto) 3.9, Eosinophils (%) (Auto) 4.3H, Basophils (%) (Auto) 2.4H, Sodium Level 137, Potassium Level 4.1, Chloride Level 102, Carbon Dioxide Level 26, Anion Gap 9, Blood Urea Nitrogen 11 , Creatinine 0.9, Estimat Glomerular Filtration Rate , Glucose Level 122H, Calcium Level 9.3, Vancomycin Level Trough 18.0H Current Medications Medications (Trade) Dose Ordered Sig/Ana Maria Route PRN Reason Start Time Stop Time Status Last Admin Dose Admin Acetaminophen (Tylenol) 650 mg Q4H PRN ORAL FEVER (temp>100.5F) 07/18/17 14:45 08/11/17 14:44 Albuterol/ Ipratropium (Albuterol/ Ipratropium) 3 ml Q4H PRN HHN Shortness of Breath 07/18/17 13:30 07/20/17 13:29 Amlodipine Besylate (Norvasc) 10 mg DAILY ORAL 07/19/17 09:00 08/12/17 08:59 Cefepime HCl 2 gm/ Sodium Chloride 55 ml @ 110 mls/hr Q24H IVPB 07/18/17 18:30 07/21/17 18:29 Dextrose (Dextrose 50%) STAT PRN IV Hypoglycemia 07/18/17 13:30 08/11/17 13:29 Gabapentin (Neurontin) 300 mg BEDTIME ORAL 07/18/17 21:00 08/11/17 20:59 Glimepiride (Amaryl) 2 mg BEFORE BREAKFAST ORAL 07/19/17 06:30 08/12/17 06:29 Heparin Sodium (Porcine) (Heparin 5000 units/ml) 5,000 units EVERY 12 HOURS SUBQ 07/18/17 21:00 08/11/17 20:59 Insulin Aspart (NovoLOG) BEFORE MEALS AND HS SUBQ 07/18/17 16:30 08/11/17 17:29 07/18/17 16:50 Iron Sucrose 100 mg/Sodium Chloride 60 ml @ 240 mls/hr BEDTIME IV 07/18/17 21:00 07/19/17 21:01 Morphine Sulfate (Morphine Sulfate) 2 mg Q4H PRN IVP For Pain 07/18/17 13:00 07/21/17 08:59 Nebivolol (Bystolic) 5 mg DAILY ORAL 07/19/17 09:00 08/16/17 08:59 Ondansetron HCl (Zofran) 4 mg Q6H PRN IVP Nausea & Vomiting 07/18/17 13:30 08/11/17 13:29 Polyethylene Glycol (Miralax) 17 gm DAILYPRN PRN ORAL Constipation 07/18/17 13:30 08/11/17 13:29 Promethazine HCl/ Codeine (Phenergan with Codeine) 5 ml Q4H PRN ORAL For Cough 07/18/17 13:30 08/11/17 13:29 07/18/17 18:00 KYMBERLY JURADO Jul 18, 2017 18:29
[2017-07-18] MEDS: Cefepime HCl 2 GM in NS 55 ML IVPB SCH (18:43)
[2017-07-18 20:00] VITALS: BP 149/59
[2017-07-18] MEDS: Iron Sucrose 100 MG in NS 55 ML IV SCH (20:20)
[2017-07-18] MEDS: Morphine Sulfate 2mg/ml Inj IVP PRN (20:22)
[2017-07-18] MEDS ORDERED: Vancomycin 750mg/NS 250ml 250 ML IVPB SCH (22:00)
--- NOTE | 2017-07-18 23:51 | Cardiology Progress Note ---
Assessment/Plan Assessment/Plan 1. Dyspnea, most likely due to community-acquired pneumonia. Echocardiography reveals normal LV systolic function with LVEF at 65%. Continue IV ABx therapy, pulmonary toilet, nebulizer treatment. 2. Severe pulmonary HTN by echo, ? due to underlying COPD. 3. History of hypertension, increase Bystolic to 10mg daily. 4. History of diabetes mellitus. 5. ST due to hypoxemia/sepsis, resolved. Subjective Subjective Transferred to the non-tele bed. No cardiac events reported. Objective Last 24 Hour Vital Signs Date Time Temp Pulse Resp B/P (MAP) Pulse Ox O2 Delivery O2 Flow Rate FiO2 07/18/17 21:42 Room Air 07/18/17 21:41 92 Nasal Cannula 2.0 28 07/18/17 21:40 76 18 Nasal Cannula 2.0 28 07/18/17 20:56 96.6 07/18/17 20:00 96.6 84 18 149/59 87 07/18/17 16:00 97.4 92 20 115/50 93 Room Air 07/18/17 12:00 97.7 90 22 130/54 91 Nasal Cannula 2.0 07/18/17 09:45 83 154/69 07/18/17 08:00 83 07/18/17 08:00 97.9 83 20 154/69 92 Room Air 07/18/17 06:38 82 Nasal Cannula 3.0 07/18/17 06:38 Nasal Cannula 3.0 07/18/17 06:38 82 17 Nasal Cannula 3.0 07/18/17 04:24 96.8 82 18 132/56 95 Room Air 07/18/17 04:00 78 07/18/17 00:24 98.2 82 18 128/51 95 Nasal Cannula 07/18/17 00:00 80 Intake and Output 07/17/17 07/18/17 19:00 07:00 Intake Total 960 ml 515.000 ml Output Total 800 ml 600 ml Balance 160 ml -85.000 ml Intake Oral 960 ml IV Total 515.000 ml Output Urine Total 800 ml 600 ml # Voids 2 2D Echo: LVEF 65%, RVSP 60 mmHg, Mild MR, Grade I lVDD, Mild , NORMA at 1.5 cm2 Laboratory Tests Test 07/18/17 09:30 White Blood Count 15.5 K/UL (4.8-10.8) H Red Blood Count 3.80 M/UL (4.20-5.40) L Hemoglobin 8.6 G/DL (12.0-16.0) L Hematocrit 29.4 % (37.0-47.0) L Mean Corpuscular Volume 77 FL (80-99) L Mean Corpuscular Hemoglobin 22.6 PG (27.0-31.0) L Mean Corpuscular Hemoglobin Concent 29.2 G/DL (32.0-36.0) L Red Cell Distribution Width 17.6 % (11.6-14.8) H Platelet Count 324 K/UL (150-450) Mean Platelet Volume 6.8 FL (6.5-10.1) Neutrophils (%) (Auto) 73.3 % (45.0-75.0) Lymphocytes (%) (Auto) 16.1 % (20.0-45.0) L Monocytes (%) (Auto) 3.9 % (1.0-10.0) Eosinophils (%) (Auto) 4.3 % (0.0-3.0) H Basophils (%) (Auto) 2.4 % (0.0-2.0) H Sodium Level 137 MMOL/L (136-145) Potassium Level 4.1 MMOL/L (3.5-5.1) Chloride Level 102 MMOL/L (98-107) Carbon Dioxide Level 26 MMOL/L (21-32) Anion Gap 9 mmol/L (5-15) Blood Urea Nitrogen 11 mg/dL (7-18) Creatinine 0.9 MG/DL (0.55-1.30) Estimat Glomerular Filtration Rate mL/min (>60) Glucose Level 122 MG/DL (74-106) H Calcium Level 9.3 MG/DL (8.5-10.1) Vancomycin Level Trough 18.0 ug/mL (5.0-12.0) H Objective HEENT: Atraumatic and normocephalic. Anicteric. Pupils are equal, round, and reactive to light and accommodation. Periorbital edema is evident. NECK: JVP is less than 5 cm. No carotid bruit. Carotid upstrokes 2+ bilaterally. CARDIOVASCULAR: Normal S1 and S2. Regular rate and rhythm. 2/6 ESM at LSB, no gallops or rubs. LUNGS: Bilateral crackles, mostly in the basilar parts. ABDOMEN: Soft, nontender, and nondistended. No hepatosplenomegaly. Positive bowel sounds. EXTREMITIES: No evidence of edema, clubbing, or cyanosis. MERNA MCCLELLAN Jul 18, 2017 23:51
[2017-07-19] VITALS: BP 133/56
[2017-07-19 04:00] VITALS: BP 139/59
[2017-07-19] MEDS: Glimepiride 1mg tab ORAL SCH (06:01)
[2017-07-19] MEDS: NovoLOG Insulin Flexpen SUBQ SCH ×4 (06:03→21:06)
[2017-07-19 07:31] LABS: HEMATOCRIT 28.9 % (37.0-47.0); HEMOGLOBIN 8.9 G/DL (12.0-16.0); MEAN CORPUSCULAR VOLUME 78 FL (80-99); PLATELET COUNT 427 K/UL (150-450); RED BLOOD COUNT 3.71 M/UL (4.20-5.40); RED CELL DISTRIBUTION WIDTH 17.8 % (11.6-14.8)
[2017-07-19 07:55] LABS: ANION GAP 9 mmol/L (5-15); BLOOD UREA NITROGEN 12 mg/dL (7-18); CALCIUM 9.1 MG/DL (8.5-10.1); CARBON DIOXIDE 27 MMOL/L (21-32); CHLORIDE 101 MMOL/L (98-107); CREATININE 0.9 MG/DL (0.55-1.30); POTASSIUM 4.3 MMOL/L (3.5-5.1); SODIUM 137 MMOL/L (136-145)
[2017-07-19 08:00] VITALS: BP 127/44
[2017-07-19] MEDS: Heparin 5000 units/ml inj SUBQ SCH ×2 (08:27→21:06)
[2017-07-19] MEDS: Morphine Sulfate 2mg/ml Inj IVP PRN (08:29)
--- NOTE | 2017-07-19 08:32 | Nephrology Progress Note ---
Assessment/Plan Assessment 1.dulce 2.hypocalcemia 3.hyponatremia 4.pna Plan plan to continue iv antibiotic mix all ivp with ns.9 check vit d monitoring renal function avoid NSAID replace electrolyte as need it Subjective Constitutional: Reports: no symptoms HEENT: Reports: no symptoms Genitourinary: Reports: no symptoms Neurologic/Psychiatric: Reports: no symptoms Subjective alert and awake her cough has improved Objective Objective Last 24 Hour Vital Signs Date Time Temp Pulse Resp B/P (MAP) Pulse Ox O2 Delivery O2 Flow Rate FiO2 07/19/17 08:24 74 139/59 07/19/17 07:35 74 18 Nasal Cannula 2.0 28 07/19/17 07:35 Room Air 07/19/17 07:35 93 Nasal Cannula 2.0 28 07/19/17 04:00 97.4 89 20 139/59 92 07/19/17 00:00 90 Nasal Cannula 2.0 07/19/17 00:00 97.6 90 20 133/56 90 07/18/17 21:42 Room Air 07/18/17 21:41 92 Nasal Cannula 2.0 28 07/18/17 21:40 76 18 Nasal Cannula 2.0 28 07/18/17 20:56 96.6 07/18/17 20:00 96.6 84 18 149/59 87 07/18/17 20:00 87 Room Air 07/18/17 16:00 97.4 92 20 115/50 93 Room Air 07/18/17 12:00 97.7 90 22 130/54 91 Nasal Cannula 2.0 07/18/17 09:45 83 154/69 Intake and Output 07/18/17 07/19/17 19:00 07:00 Intake Total 480 ml 600 ml Output Total 500 ml Balance -20 ml 600 ml Intake Oral 480 ml 600 ml Output Urine Total 500 ml # Voids 4 3 # Bowel Movements 1 Laboratory Tests 07/18/17 09:30: White Blood Count 15.5H, Red Blood Count 3.80L, Hemoglobin 8.6L, Hematocrit 29.4L, Mean Corpuscular Volume 77L, Mean Corpuscular Hemoglobin 22.6L, Mean Corpuscular Hemoglobin Concent 29.2L, Red Cell Distribution Width 17.6H, Platelet Count 324, Mean Platelet Volume 6.8, Neutrophils (%) (Auto) 73.3, Lymphocytes (%) (Auto) 16.1L, Monocytes (%) (Auto) 3.9, Eosinophils (%) (Auto) 4.3H, Basophils (%) (Auto) 2.4H, Sodium Level 137, Potassium Level 4.1, Chloride Level 102, Carbon Dioxide Level 26, Anion Gap 9, Blood Urea Nitrogen 11 , Creatinine 0.9, Estimat Glomerular Filtration Rate , Glucose Level 122H, Calcium Level 9.3, Vancomycin Level Trough 18.0H 07/19/17 05:40: White Blood Count 19.0H, Red Blood Count 3.71L, Hemoglobin 8.9L, Hematocrit 28.9L, Mean Corpuscular Volume 78L, Mean Corpuscular Hemoglobin 24.0L, Mean Corpuscular Hemoglobin Concent 30.8L, Red Cell Distribution Width 17.8H, Platelet Count 427, Mean Platelet Volume 6.4L, Neutrophils (%) (Auto) , Lymphocytes (%) (Auto) , Monocytes (%) (Auto) , Eosinophils (%) (Auto) , Basophils (%) (Auto) , Sodium Level 137, Potassium Level 4.3, Chloride Level 101 , Carbon Dioxide Level 27, Anion Gap 9, Blood Urea Nitrogen 12, Creatinine 0.9, Estimat Glomerular Filtration Rate , Glucose Level 92, Calcium Level 9.1, Neutrophils % (Manual) [Pending], Lymphocytes % (Manual) [Pending], Platelet Estimate [Pending], Platelet Morphology [Pending] Height (Feet): 5 Height (Inches): 0.00 Weight (Pounds): 205 Objective HEENT: Atraumatic and normocephalic. Anicteric. Pupils are equal, round, and reactive to light and accommodation. Periorbital edema is evident. NECK: JVP is less than 5 cm. No carotid bruit. Carotid upstrokes 2+ bilaterally. CARDIOVASCULAR: Normal S1 and S2. Regular rate and rhythm. Tachycardic. No murmurs, gallops, or rubs. LUNGS: Bilateral crackles, mostly in the basilar parts. ABDOMEN: Soft, nontender, and nondistended. No hepatosplenomegaly. Positive bowel sounds. EXTREMITIES: No evidence of edema, clubbing, or cyanosis. BLAIRE SANCHEZ Jul 19, 2017 08:32
[2017-07-19] MEDS ORDERED: Bystolic 2.5mg Tab ORAL SCH (09:00)
[2017-07-19 12:00] VITALS: BP 127/59
--- NOTE | 2017-07-19 13:02 | Infectious Diseases Prog Note ---
Assessment/Plan Assessment/Plan A Pneumonia improving COPD Influenza exposure Acute renal failure DM type 2 Morbid obesity P; continue Cefepime in hospital will f/u cultures Subjective ROS Limited/Unobtainable: Yes HEENT: Reports: no symptoms Respiratory: Reports: dry cough Cardiovascular: Reports: no symptoms Gastrointestinal/Abdominal: Reports: no symptoms Allergies: Coded Allergies: No Known Allergies (Unverified , 06/17/12) Objective Vital Signs Last 24 Hour Vital Signs Date Time Temp Pulse Resp B/P (MAP) Pulse Ox O2 Delivery O2 Flow Rate FiO2 07/19/17 12:00 98.1 82 20 127/59 93 07/19/17 08:24 74 139/59 07/19/17 08:00 97.5 88 20 127/44 92 07/19/17 07:35 74 18 Nasal Cannula 2.0 28 07/19/17 07:35 Room Air 07/19/17 07:35 93 Nasal Cannula 2.0 28 07/19/17 04:00 97.4 89 20 139/59 92 07/19/17 00:00 90 Nasal Cannula 2.0 07/19/17 00:00 97.6 90 20 133/56 90 07/18/17 21:42 Room Air 07/18/17 21:41 92 Nasal Cannula 2.0 28 07/18/17 21:40 76 18 Nasal Cannula 2.0 28 07/18/17 20:56 96.6 07/18/17 20:00 96.6 84 18 149/59 87 07/18/17 20:00 87 Room Air 07/18/17 16:00 97.4 92 20 115/50 93 Room Air Height (Feet): 5 Height (Inches): 0.00 Weight (Pounds): 205 HEENT: mucous membranes moist Respiratory/Chest: lungs clear Cardiovascular: normal rate Abdomen: soft, non tender Extremities: no edema Neurologic/Psychiatric: alert, oriented x 3, responsive Laboratory Tests Test 07/19/17 05:40 White Blood Count 19.0 K/UL (4.8-10.8) H Red Blood Count 3.71 M/UL (4.20-5.40) L Hemoglobin 8.9 G/DL (12.0-16.0) L Hematocrit 28.9 % (37.0-47.0) L Mean Corpuscular Volume 78 FL (80-99) L Mean Corpuscular Hemoglobin 24.0 PG (27.0-31.0) L Mean Corpuscular Hemoglobin Concent 30.8 G/DL (32.0-36.0) L Red Cell Distribution Width 17.8 % (11.6-14.8) H Platelet Count 427 K/UL (150-450) Mean Platelet Volume 6.4 FL (6.5-10.1) L Neutrophils (%) (Auto) % (45.0-75.0) Lymphocytes (%) (Auto) % (20.0-45.0) Monocytes (%) (Auto) % (1.0-10.0) Eosinophils (%) (Auto) % (0.0-3.0) Basophils (%) (Auto) % (0.0-2.0) Differential Total Cells Counted 100 Neutrophils % (Manual) 62 % (45-75) Lymphocytes % (Manual) 18 % (20-45) L Monocytes % (Manual) 10 % (1-10) Eosinophils % (Manual) 4 % (0-3) H Basophils % (Manual) 2 % (0-2) Band Neutrophils 4 % (0-8) Platelet Estimate Adequate Platelet Morphology Normal Hypochromasia 2+ Anisocytosis 1+ Microcytosis 1+ Sodium Level 137 MMOL/L (136-145) Potassium Level 4.3 MMOL/L (3.5-5.1) Chloride Level 101 MMOL/L (98-107) Carbon Dioxide Level 27 MMOL/L (21-32) Anion Gap 9 mmol/L (5-15) Blood Urea Nitrogen 12 mg/dL (7-18) Creatinine 0.9 MG/DL (0.55-1.30) Estimat Glomerular Filtration Rate mL/min (>60) Glucose Level 92 MG/DL (74-106) Calcium Level 9.1 MG/DL (8.5-10.1) Current Medications Medications (Trade) Dose Ordered Sig/Ana Maria Route PRN Reason Start Time Stop Time Status Last Admin Dose Admin Acetaminophen (Tylenol) 650 mg Q4H PRN ORAL FEVER (temp>100.5F) 07/18/17 14:45 08/11/17 14:44 Albuterol/ Ipratropium (Albuterol/ Ipratropium) 3 ml Q4H PRN HHN Shortness of Breath 07/18/17 13:30 1/12/18 13:29 Amlodipine Besylate (Norvasc) 10 mg DAILY ORAL 07/19/17 09:00 08/12/17 08:59 07/19/17 08:24 Cefepime HCl 2 gm/ Sodium Chloride 55 ml @ 110 mls/hr Q24H IVPB 07/18/17 18:30 07/21/17 18:29 07/18/17 18:43 Dextrose (Dextrose 50%) STAT PRN IV Hypoglycemia 07/18/17 13:30 08/11/17 13:29 Gabapentin (Neurontin) 300 mg BEDTIME ORAL 07/18/17 21:00 08/11/17 20:59 07/18/17 20:20 Glimepiride (Amaryl) 2 mg BEFORE BREAKFAST ORAL 07/19/17 06:30 08/12/17 06:29 07/19/17 06:01 Heparin Sodium (Porcine) (Heparin 5000 units/ml) 5,000 units EVERY 12 HOURS SUBQ 07/18/17 21:00 08/11/17 20:59 07/19/17 08:27 Insulin Aspart (NovoLOG) BEFORE MEALS AND HS SUBQ 07/18/17 16:30 08/11/17 17:29 07/19/17 12:04 Iron Sucrose 100 mg/Sodium Chloride 60 ml @ 240 mls/hr BEDTIME IV 07/18/17 21:00 07/19/17 21:01 07/18/17 20:20 Morphine Sulfate (Morphine Sulfate) 2 mg Q4H PRN IVP For Pain 07/18/17 13:00 07/21/17 08:59 07/19/17 08:29 Nebivolol (Bystolic) 10 mg DAILY ORAL 07/19/17 09:00 08/18/17 08:59 07/19/17 08:24 Ondansetron HCl (Zofran) 4 mg Q6H PRN IVP Nausea & Vomiting 07/18/17 13:30 08/11/17 13:29 Polyethylene Glycol (Miralax) 17 gm DAILYPRN PRN ORAL Constipation 07/18/17 13:30 08/11/17 13:29 Promethazine HCl/ Codeine (Phenergan with Codeine) 5 ml Q4H PRN ORAL For Cough 07/18/17 13:30 08/11/17 13:29 07/18/17 18:00 ARLENE BAEZ Jul 19, 2017 13:02
--- NOTE | 2017-07-19 13:45 | General Progress Note ---
Assessment/Plan Problem List: (1) Community acquired pneumonia ICD Codes: J18.9 - Pneumonia, unspecified organism SNOMED: 568309575 (2) COPD exacerbation ICD Codes: J44.1 - Chronic obstructive pulmonary disease with (acute) exacerbation SNOMED: 637863140 (3) Acute hypoxemic respiratory failure ICD Codes: J96.01 - Acute respiratory failure with hypoxia SNOMED: 276512374 (4) Leukocytosis ICD Codes: D72.829 - Elevated white blood cell count, unspecified SNOMED: 113730667, 052479987 (5) Influenza-like illness ICD Codes: R69 - Illness, unspecified SNOMED: 18749958 (6) Cough ICD Codes: R05 - Cough SNOMED: 68875449 (7) Sepsis ICD Codes: A41.9 - Sepsis, unspecified organism SNOMED: 48741253 Qualifiers: Qualified Codes: A41.9 - Sepsis, unspecified organism (8) Pneumonia ICD Codes: J18.9 - Pneumonia SNOMED: 541828367 Status: stable, progressing, tolerating diet Assessment/Plan o2 pulm tx abx ot pt diet cbc bmp am heme eval dc plan w hh Subjective Constitutional: Reports: weakness Allergies: Coded Allergies: No Known Allergies (Unverified , 06/17/12) All Systems: reviewed and negative except above Subjective sitting tired o2 nc Objective Last 24 Hour Vital Signs Date Time Temp Pulse Resp B/P (MAP) Pulse Ox O2 Delivery O2 Flow Rate FiO2 07/19/17 12:00 98.1 82 20 127/59 93 07/19/17 08:24 74 139/59 07/19/17 08:00 97.5 88 20 127/44 92 07/19/17 07:35 74 18 Nasal Cannula 2.0 28 07/19/17 07:35 Room Air 07/19/17 07:35 93 Nasal Cannula 2.0 28 07/19/17 04:00 97.4 89 20 139/59 92 07/19/17 00:00 90 Nasal Cannula 2.0 07/19/17 00:00 97.6 90 20 133/56 90 07/18/17 21:42 Room Air 07/18/17 21:41 92 Nasal Cannula 2.0 28 07/18/17 21:40 76 18 Nasal Cannula 2.0 28 1/10/18 20:56 96.6 07/18/17 20:00 96.6 84 18 149/59 87 07/18/17 20:00 87 Room Air 07/18/17 16:00 97.4 92 20 115/50 93 Room Air Intake and Output 07/18/17 07/19/17 19:00 07:00 Intake Total 480 ml 600 ml Output Total 500 ml Balance -20 ml 600 ml Intake Oral 480 ml 600 ml Output Urine Total 500 ml # Voids 4 3 # Bowel Movements 1 Laboratory Tests 07/19/17 05:40: White Blood Count 19.0H, Red Blood Count 3.71L, Hemoglobin 8.9L, Hematocrit 28.9L, Mean Corpuscular Volume 78L, Mean Corpuscular Hemoglobin 24.0L, Mean Corpuscular Hemoglobin Concent 30.8L, Red Cell Distribution Width 17.8H, Platelet Count 427, Mean Platelet Volume 6.4L, Neutrophils (%) (Auto) , Lymphocytes (%) (Auto) , Monocytes (%) (Auto) , Eosinophils (%) (Auto) , Basophils (%) (Auto) , Differential Total Cells Counted 100, Neutrophils % ( Manual) 62, Lymphocytes % (Manual) 18L, Monocytes % (Manual) 10, Eosinophils % ( Manual) 4H, Basophils % (Manual) 2, Band Neutrophils 4, Platelet Estimate Adequate, Platelet Morphology Normal, Hypochromasia 2+, Anisocytosis 1+, Microcytosis 1+, Sodium Level 137, Potassium Level 4.3, Chloride Level 101, Carbon Dioxide Level 27, Anion Gap 9, Blood Urea Nitrogen 12, Creatinine 0.9, Estimat Glomerular Filtration Rate , Glucose Level 92, Calcium Level 9.1 Height (Feet): 5 Height (Inches): 0.00 Weight (Pounds): 205 General Appearance: alert EENT: normal ENT inspection Neck: normal alignment Cardiovascular: normal peripheral pulses, normal rate, regular rhythm Respiratory/Chest: decreased breath sounds Abdomen: normal bowel sounds, non tender, soft Extremities: normal inspection Edema: no edema noted Arm (L), no edema noted Arm (R), no edema noted Leg (L), no edema noted Leg (R), no edema noted Pedal (L), no edema noted Pedal (R), no edema noted Generalized Neurologic: responsive, motor weakness Skin: normal pigmentation, warm/dry QAMAR WALLACE Jul 19, 2017 13:45
[2017-07-19 16:00] VITALS: BP 134/62
[2017-07-19] MEDS: Cefepime HCl 2 GM in NS 55 ML IVPB SCH (18:55)
--- NOTE | 2017-07-19 19:28 | Cardiology Progress Note ---
Assessment/Plan Assessment/Plan 1. Dyspnea, most likely due to community-acquired pneumonia. Echocardiography reveals normal LV systolic function with LVEF at 65%. Continue IV ABx therapy, pulmonary toilet, nebulizer treatment. 2. Severe pulmonary HTN by echo, ? due to underlying COPD. 3. History of hypertension, well controlled, continue Bystolic. 4. History of diabetes mellitus. 5. ST due to hypoxemia/sepsis, continue Bystolic. Subjective Subjective Not on telemetry No cardiac events reported. Objective Last 24 Hour Vital Signs Date Time Temp Pulse Resp B/P (MAP) Pulse Ox O2 Delivery O2 Flow Rate FiO2 07/19/17 16:00 98.2 72 20 134/62 92 07/19/17 12:00 98.1 82 20 127/59 93 07/19/17 08:24 74 139/59 07/19/17 08:00 97.5 88 20 127/44 92 07/19/17 07:35 74 18 Nasal Cannula 2.0 28 07/19/17 07:35 Room Air 07/19/17 07:35 93 Nasal Cannula 2.0 28 07/19/17 04:00 97.4 89 20 139/59 92 07/19/17 00:00 90 Nasal Cannula 2.0 07/19/17 00:00 97.6 90 20 133/56 90 07/18/17 21:42 Room Air 07/18/17 21:41 92 Nasal Cannula 2.0 28 07/18/17 21:40 76 18 Nasal Cannula 2.0 28 07/18/17 20:56 96.6 07/18/17 20:00 96.6 84 18 149/59 87 07/18/17 20:00 87 Room Air Intake and Output 07/18/17 07/19/17 19:00 07:00 Intake Total 480 ml 600 ml Output Total 500 ml Balance -20 ml 600 ml Intake Oral 480 ml 600 ml Output Urine Total 500 ml # Voids 4 3 # Bowel Movements 1 2D Echo: LVEF 65%, RVSP 60 mmHg, Mild MR, Grade I lVDD, Mild , NORMA at 1.5 cm2 Laboratory Tests Test 07/19/17 05:40 White Blood Count 19.0 K/UL (4.8-10.8) H Red Blood Count 3.71 M/UL (4.20-5.40) L Hemoglobin 8.9 G/DL (12.0-16.0) L Hematocrit 28.9 % (37.0-47.0) L Mean Corpuscular Volume 78 FL (80-99) L Mean Corpuscular Hemoglobin 24.0 PG (27.0-31.0) L Mean Corpuscular Hemoglobin Concent 30.8 G/DL (32.0-36.0) L Red Cell Distribution Width 17.8 % (11.6-14.8) H Platelet Count 427 K/UL (150-450) Mean Platelet Volume 6.4 FL (6.5-10.1) L Neutrophils (%) (Auto) % (45.0-75.0) Lymphocytes (%) (Auto) % (20.0-45.0) Monocytes (%) (Auto) % (1.0-10.0) Eosinophils (%) (Auto) % (0.0-3.0) Basophils (%) (Auto) % (0.0-2.0) Differential Total Cells Counted 100 Neutrophils % (Manual) 62 % (45-75) Lymphocytes % (Manual) 18 % (20-45) L Monocytes % (Manual) 10 % (1-10) Eosinophils % (Manual) 4 % (0-3) H Basophils % (Manual) 2 % (0-2) Band Neutrophils 4 % (0-8) Platelet Estimate Adequate Platelet Morphology Normal Hypochromasia 2+ Anisocytosis 1+ Microcytosis 1+ Sodium Level 137 MMOL/L (136-145) Potassium Level 4.3 MMOL/L (3.5-5.1) Chloride Level 101 MMOL/L (98-107) Carbon Dioxide Level 27 MMOL/L (21-32) Anion Gap 9 mmol/L (5-15) Blood Urea Nitrogen 12 mg/dL (7-18) Creatinine 0.9 MG/DL (0.55-1.30) Estimat Glomerular Filtration Rate mL/min (>60) Glucose Level 92 MG/DL (74-106) Calcium Level 9.1 MG/DL (8.5-10.1) Objective HEENT: Atraumatic and normocephalic. Anicteric. Pupils are equal, round, and reactive to light and accommodation. Periorbital edema is evident. NECK: JVP is less than 5 cm. No carotid bruit. Carotid upstrokes 2+ bilaterally. CARDIOVASCULAR: Normal S1 and S2. Regular rate and rhythm. 2/6 ESM at LSB, no gallops or rubs. LUNGS: Bilateral crackles, mostly in the basilar parts. ABDOMEN: Soft, nontender, and nondistended. No hepatosplenomegaly. Positive bowel sounds. EXTREMITIES: No evidence of edema, clubbing, or cyanosis. MERNA MCCLELLAN Jul 19, 2017 19:28
--- NOTE | 2017-07-19 19:45 | Pulmonology Progress Note ---
Assessment/Plan Problems: (1) Acute hypoxemic respiratory failure (2) Sepsis (3) COPD (chronic obstructive pulmonary disease) (4) Community acquired pneumonia (5) Chronic liver disease Assessment/Plan wbc lower today less tachycardic continue cefepime, vancomycin and Tamiflue respiratory treatment med/surg dc planning soon Subjective ROS Limited/Unobtainable: No Constitutional: Reports: no symptoms HEENT: Repors: no symptoms Allergies: Coded Allergies: No Known Allergies (Unverified , 06/17/12) Objective Last 24 Hour Vital Signs Date Time Temp Pulse Resp B/P (MAP) Pulse Ox O2 Delivery O2 Flow Rate FiO2 07/19/17 16:00 98.2 72 20 134/62 92 07/19/17 12:00 98.1 82 20 127/59 93 07/19/17 08:24 74 139/59 07/19/17 08:00 97.5 88 20 127/44 92 07/19/17 07:35 74 18 Nasal Cannula 2.0 28 07/19/17 07:35 Room Air 07/19/17 07:35 93 Nasal Cannula 2.0 28 07/19/17 04:00 97.4 89 20 139/59 92 07/19/17 00:00 90 Nasal Cannula 2.0 07/19/17 00:00 97.6 90 20 133/56 90 07/18/17 21:42 Room Air 07/18/17 21:41 92 Nasal Cannula 2.0 28 07/18/17 21:40 76 18 Nasal Cannula 2.0 28 07/18/17 20:56 96.6 07/18/17 20:00 96.6 84 18 149/59 87 07/18/17 20:00 87 Room Air Intake and Output 07/18/17 07/19/17 19:00 07:00 Intake Total 480 ml 600 ml Output Total 500 ml Balance -20 ml 600 ml Intake Oral 480 ml 600 ml Output Urine Total 500 ml # Voids 4 3 # Bowel Movements 1 Objective General Appearance: WD/WN, no apparent distress Lines, tubes and drains: peripheral HEENT: normocephalic, atraumatic Neck: non-tender, normal alignment Respiratory/Chest: chest wall non-tender, lungs clear Cardiovascular/Chest: regular rhythm Abdomen: normal bowel sounds, non tender Extremities: normal range of motion, non-tender Skin Exam: normal pigmentation Neurologic: no motor/sensory deficits Laboratory Tests 07/19/17 05:40: White Blood Count 19.0H, Red Blood Count 3.71L, Hemoglobin 8.9L, Hematocrit 28.9L, Mean Corpuscular Volume 78L, Mean Corpuscular Hemoglobin 24.0L, Mean Corpuscular Hemoglobin Concent 30.8L, Red Cell Distribution Width 17.8H, Platelet Count 427, Mean Platelet Volume 6.4L, Neutrophils (%) (Auto) , Lymphocytes (%) (Auto) , Monocytes (%) (Auto) , Eosinophils (%) (Auto) , Basophils (%) (Auto) , Differential Total Cells Counted 100, Neutrophils % ( Manual) 62, Lymphocytes % (Manual) 18L, Monocytes % (Manual) 10, Eosinophils % ( Manual) 4H, Basophils % (Manual) 2, Band Neutrophils 4, Platelet Estimate Adequate, Platelet Morphology Normal, Hypochromasia 2+, Anisocytosis 1+, Microcytosis 1+, Sodium Level 137, Potassium Level 4.3, Chloride Level 101, Carbon Dioxide Level 27, Anion Gap 9, Blood Urea Nitrogen 12, Creatinine 0.9, Estimat Glomerular Filtration Rate , Glucose Level 92, Calcium Level 9.1 Current Medications Medications (Trade) Dose Ordered Sig/Ana Maria Route PRN Reason Start Time Stop Time Status Last Admin Dose Admin Acetaminophen (Tylenol) 650 mg Q4H PRN ORAL FEVER (temp>100.5F) 07/18/17 14:45 08/11/17 14:44 Albuterol/ Ipratropium (Albuterol/ Ipratropium) 3 ml Q4H PRN HHN Shortness of Breath 07/18/17 13:30 07/20/17 13:29 Amlodipine Besylate (Norvasc) 10 mg DAILY ORAL 07/19/17 09:00 08/12/17 08:59 07/19/17 08:24 Cefepime HCl 2 gm/ Sodium Chloride 55 ml @ 110 mls/hr Q24H IVPB 07/18/17 18:30 07/21/17 18:29 07/19/17 18:55 Dextrose (Dextrose 50%) STAT PRN IV Hypoglycemia 07/18/17 13:30 08/11/17 13:29 Gabapentin (Neurontin) 300 mg BEDTIME ORAL 07/18/17 21:00 08/11/17 20:59 07/18/17 20:20 Glimepiride (Amaryl) 2 mg BEFORE BREAKFAST ORAL 07/19/17 06:30 08/12/17 06:29 07/19/17 06:01 Heparin Sodium (Porcine) (Heparin 5000 units/ml) 5,000 units EVERY 12 HOURS SUBQ 07/18/17 21:00 08/11/17 20:59 07/19/17 08:27 Insulin Aspart (NovoLOG) BEFORE MEALS AND HS SUBQ 07/18/17 16:30 08/11/17 17:29 07/19/17 17:03 Iron Sucrose 100 mg/Sodium Chloride 60 ml @ 240 mls/hr BEDTIME IV 07/18/17 21:00 07/19/17 21:01 07/18/17 20:20 Morphine Sulfate (Morphine Sulfate) 2 mg Q4H PRN IVP For Pain 07/18/17 13:00 07/21/17 08:59 07/19/17 08:29 Nebivolol (Bystolic) 10 mg DAILY ORAL 07/19/17 09:00 08/18/17 08:59 07/19/17 08:24 Ondansetron HCl (Zofran) 4 mg Q6H PRN IVP Nausea & Vomiting 07/18/17 13:30 08/11/17 13:29 Polyethylene Glycol (Miralax) 17 gm DAILYPRN PRN ORAL Constipation 07/18/17 13:30 08/11/17 13:29 Promethazine HCl/ Codeine (Phenergan with Codeine) 5 ml Q4H PRN ORAL For Cough 07/18/17 13:30 08/11/17 13:29 07/18/17 18:00 KYMBERLY JURADO Jul 19, 2017 19:45
[2017-07-19 20:00] VITALS: BP 139/67
[2017-07-19] MEDS: Iron Sucrose 100 MG in NS 55 ML IV SCH (21:04)
[2017-07-19] MEDS: Promethazine/Codeine 5ml UD ORAL PRN (21:23)
[2017-07-20 00:26] VITALS: BP 122/49
[2017-07-20] MEDS: Morphine Sulfate 2mg/ml Inj IVP PRN ×2 (03:45→05:06)
[2017-07-20 04:44] VITALS: BP 129/51
[2017-07-20 06:12] LABS: HEMATOCRIT 28.8 % (37.0-47.0); HEMOGLOBIN 8.9 G/DL (12.0-16.0); MEAN CORPUSCULAR VOLUME 78 FL (80-99); PLATELET COUNT 370 K/UL (150-450); RED BLOOD COUNT 3.67 M/UL (4.20-5.40); RED CELL DISTRIBUTION WIDTH 18.4 % (11.6-14.8); WHITE BLOOD COUNT 18.9 K/UL (4.8-10.8)
[2017-07-20 06:37] LABS: ANION GAP 9 mmol/L (5-15); BLOOD UREA NITROGEN 12 mg/dL (7-18); CALCIUM 9.2 MG/DL (8.5-10.1); CARBON DIOXIDE 27 MMOL/L (21-32); CHLORIDE 101 MMOL/L (98-107); CREATININE 0.9 MG/DL (0.55-1.30); POTASSIUM 4.1 MMOL/L (3.5-5.1); SODIUM 137 MMOL/L (136-145)
[2017-07-20] MEDS: Glimepiride 1mg tab ORAL SCH (06:59)
[2017-07-20] MEDS: NovoLOG Insulin Flexpen SUBQ SCH ×4 (07:01→20:34)
[2017-07-20 08:00] VITALS: BP 131/60
[2017-07-20] MEDS: Promethazine/Codeine 5ml UD ORAL PRN ×2 (09:23→18:25)
[2017-07-20] MEDS: Heparin 5000 units/ml inj SUBQ SCH ×2 (09:27→20:35)
--- NOTE | 2017-07-20 11:28 | Infectious Diseases Prog Note ---
Assessment/Plan Assessment/Plan A Pneumonia improving COPD Influenza exposure Acute renal failure DM type 2 Morbid obesity P; continue Cefepime in hospital repeat CXR Subjective ROS Limited/Unobtainable: No Constitutional: Reports: no symptoms Respiratory: Reports: productive cough Cardiovascular: Reports: no symptoms Gastrointestinal/Abdominal: Reports: no symptoms Musculoskeletal: Reports: swelling, other - legs Allergies: Coded Allergies: No Known Allergies (Unverified , 06/17/12) Objective Vital Signs Last 24 Hour Vital Signs Date Time Temp Pulse Resp B/P (MAP) Pulse Ox O2 Delivery O2 Flow Rate FiO2 07/20/17 09:23 73 132/65 07/20/17 08:00 97.7 84 18 131/60 92 07/20/17 07:01 93 Nasal Cannula 2.0 28 07/20/17 07:01 73 18 Nasal Cannula 2.0 28 07/20/17 07:01 Nasal Cannula 2.0 28 07/20/17 04:45 2.0 07/20/17 04:44 98.0 78 20 129/51 90 Nasal Cannula 07/20/17 00:30 2.0 07/20/17 00:26 98.2 79 20 122/49 90 Nasal Cannula 07/19/17 21:38 98.2 80 20 92 Nasal Cannula 07/19/17 20:29 100 22 91 Nasal Cannula 2.0 28 07/19/17 20:21 99 18 92 Nasal Cannula 2.0 28 07/19/17 20:00 98.2 80 20 139/67 92 Nasal Cannula 07/19/17 20:00 2.0 07/19/17 19:53 Nasal Cannula 2.0 28 07/19/17 19:52 92 Nasal Cannula 2.0 28 07/19/17 19:52 79 18 Nasal Cannula 2.0 28 07/19/17 16:00 98.2 72 20 134/62 92 07/19/17 12:00 98.1 82 20 127/59 93 Height (Feet): 5 Height (Inches): 0.00 Weight (Pounds): 205 General Appearance: no acute distress HEENT: mucous membranes moist Respiratory/Chest: lungs clear Cardiovascular: normal rate Abdomen: soft, non tender Extremities: other - pedal edema Neurologic/Psychiatric: alert, oriented x 3, responsive Laboratory Tests Test 07/20/17 04:15 White Blood Count 18.9 K/UL (4.8-10.8) H Red Blood Count 3.67 M/UL (4.20-5.40) L Hemoglobin 8.9 G/DL (12.0-16.0) L Hematocrit 28.8 % (37.0-47.0) L Mean Corpuscular Volume 78 FL (80-99) L Mean Corpuscular Hemoglobin 24.3 PG (27.0-31.0) L Mean Corpuscular Hemoglobin Concent 31.0 G/DL (32.0-36.0) L Red Cell Distribution Width 18.4 % (11.6-14.8) H Platelet Count 370 K/UL (150-450) Mean Platelet Volume 6.7 FL (6.5-10.1) Neutrophils (%) (Auto) % (45.0-75.0) Lymphocytes (%) (Auto) % (20.0-45.0) Monocytes (%) (Auto) % (1.0-10.0) Eosinophils (%) (Auto) % (0.0-3.0) Basophils (%) (Auto) % (0.0-2.0) Neutrophils % (Manual) Pending Lymphocytes % (Manual) Pending Platelet Estimate Pending Platelet Morphology Pending Sodium Level 137 MMOL/L (136-145) Potassium Level 4.1 MMOL/L (3.5-5.1) Chloride Level 101 MMOL/L (98-107) Carbon Dioxide Level 27 MMOL/L (21-32) Anion Gap 9 mmol/L (5-15) Blood Urea Nitrogen 12 mg/dL (7-18) Creatinine 0.9 MG/DL (0.55-1.30) Estimat Glomerular Filtration Rate mL/min (>60) Glucose Level 86 MG/DL (74-106) Calcium Level 9.2 MG/DL (8.5-10.1) Current Medications Medications (Trade) Dose Ordered Sig/Ana Maria Route PRN Reason Start Time Stop Time Status Last Admin Dose Admin Acetaminophen (Tylenol) 650 mg Q4H PRN ORAL FEVER (temp>100.5F) 07/18/17 14:45 08/11/17 14:44 Albuterol/ Ipratropium (Albuterol/ Ipratropium) 3 ml Q4H PRN HHN Shortness of Breath 07/18/17 13:30 07/20/17 13:29 07/19/17 20:21 Amlodipine Besylate (Norvasc) 10 mg DAILY ORAL 07/19/17 09:00 08/12/17 08:59 07/20/17 09:23 Cefepime HCl 2 gm/ Sodium Chloride 55 ml @ 110 mls/hr Q24H IVPB 07/18/17 18:30 07/21/17 18:29 07/19/17 18:55 Dextrose (Dextrose 50%) STAT PRN IV Hypoglycemia 07/18/17 13:30 08/11/17 13:29 Gabapentin (Neurontin) 300 mg BEDTIME ORAL 07/18/17 21:00 08/11/17 20:59 07/19/17 21:04 Glimepiride (Amaryl) 2 mg BEFORE BREAKFAST ORAL 07/19/17 06:30 08/12/17 06:29 07/20/17 06:59 Heparin Sodium (Porcine) (Heparin 5000 units/ml) 5,000 units EVERY 12 HOURS SUBQ 07/18/17 21:00 08/11/17 20:59 07/20/17 09:27 Insulin Aspart (NovoLOG) BEFORE MEALS AND HS SUBQ 07/18/17 16:30 08/11/17 17:29 07/20/17 07:01 Morphine Sulfate (Morphine Sulfate) 2 mg Q4H PRN IVP For Pain 07/18/17 13:00 07/21/17 08:59 07/20/17 05:06 Nebivolol (Bystolic) 10 mg DAILY ORAL 07/19/17 09:00 08/18/17 08:59 07/19/17 08:24 Ondansetron HCl (Zofran) 4 mg Q6H PRN IVP Nausea & Vomiting 07/18/17 13:30 08/11/17 13:29 Polyethylene Glycol (Miralax) 17 gm DAILYPRN PRN ORAL Constipation 07/18/17 13:30 08/11/17 13:29 Promethazine HCl/ Codeine (Phenergan with Codeine) 5 ml Q4H PRN ORAL For Cough 07/18/17 13:30 08/11/17 13:29 07/20/17 09:23 ARLENE BAEZ Jul 20, 2017 11:28
[2017-07-20 12:00] VITALS: BP 143/64
--- NOTE | 2017-07-20 12:23 | Nephrology Progress Note ---
Assessment/Plan Assessment 1.ducle 2.hypocalcemia 3.hyponatremia 4.pna Plan plan to continue iv antibiotic mix all ivp with ns.9 check vit d monitoring renal function avoid NSAID replace electrolyte as need it Subjective Constitutional: Reports: no symptoms Genitourinary: Reports: no symptoms Neurologic/Psychiatric: Reports: no symptoms Subjective alert and awake feeling better Objective Objective Last 24 Hour Vital Signs Date Time Temp Pulse Resp B/P (MAP) Pulse Ox O2 Delivery O2 Flow Rate FiO2 07/20/17 09:23 73 132/65 07/20/17 08:00 97.7 84 18 131/60 92 07/20/17 07:01 93 Nasal Cannula 2.0 28 07/20/17 07:01 73 18 Nasal Cannula 2.0 28 07/20/17 07:01 Nasal Cannula 2.0 28 07/20/17 04:45 2.0 07/20/17 04:44 98.0 78 20 129/51 90 Nasal Cannula 07/20/17 00:30 2.0 07/20/17 00:26 98.2 79 20 122/49 90 Nasal Cannula 07/19/17 21:38 98.2 80 20 92 Nasal Cannula 07/19/17 20:29 100 22 91 Nasal Cannula 2.0 28 07/19/17 20:21 99 18 92 Nasal Cannula 2.0 28 07/19/17 20:00 98.2 80 20 139/67 92 Nasal Cannula 07/19/17 20:00 2.0 07/19/17 19:53 Nasal Cannula 2.0 28 07/19/17 19:52 92 Nasal Cannula 2.0 28 07/19/17 19:52 79 18 Nasal Cannula 2.0 28 07/19/17 16:00 98.2 72 20 134/62 92 Intake and Output 07/19/17 07/20/17 19:00 07:00 Intake Total 480 ml 115 ml Balance 480 ml 115 ml Intake Oral 480 ml IV Total 115 ml # Voids 3 3 Laboratory Tests 07/20/17 04:15: White Blood Count 18.9H, Red Blood Count 3.67L, Hemoglobin 8.9L, Hematocrit 28.8L, Mean Corpuscular Volume 78L, Mean Corpuscular Hemoglobin 24.3L, Mean Corpuscular Hemoglobin Concent 31.0L, Red Cell Distribution Width 18.4H, Platelet Count 370, Mean Platelet Volume 6.7, Neutrophils (%) (Auto) , Lymphocytes (%) (Auto) , Monocytes (%) (Auto) , Eosinophils (%) (Auto) , Basophils (%) (Auto) , Neutrophils % (Manual) [Pending], Lymphocytes % (Manual) [Pending], Platelet Estimate [Pending], Platelet Morphology [Pending], Sodium Level 137, Potassium Level 4.1, Chloride Level 101, Carbon Dioxide Level 27, Anion Gap 9, Blood Urea Nitrogen 12, Creatinine 0.9, Estimat Glomerular Filtration Rate , Glucose Level 86, Calcium Level 9.2 Height (Feet): 5 Height (Inches): 0.00 Weight (Pounds): 205 Objective HEENT: Atraumatic and normocephalic. Anicteric. Pupils are equal, round, and reactive to light and accommodation. Periorbital edema is evident. NECK: JVP is less than 5 cm. No carotid bruit. Carotid upstrokes 2+ bilaterally. CARDIOVASCULAR: Normal S1 and S2. Regular rate and rhythm. Tachycardic. No murmurs, gallops, or rubs. LUNGS: Bilateral crackles, mostly in the basilar parts. ABDOMEN: Soft, nontender, and nondistended. No hepatosplenomegaly. Positive bowel sounds. EXTREMITIES: No evidence of edema, clubbing, or cyanosis. BLAIRE SANCHEZ Jul 20, 2017 12:23
--- NOTE | 2017-07-20 15:28 | General Progress Note ---
Assessment/Plan Problem List: (1) Community acquired pneumonia ICD Codes: J18.9 - Pneumonia, unspecified organism SNOMED: 025351376 (2) COPD exacerbation ICD Codes: J44.1 - Chronic obstructive pulmonary disease with (acute) exacerbation SNOMED: 303123197 (3) Acute hypoxemic respiratory failure ICD Codes: J96.01 - Acute respiratory failure with hypoxia SNOMED: 021245629 (4) Leukocytosis ICD Codes: D72.829 - Elevated white blood cell count, unspecified SNOMED: 517274564, 795514806 (5) Influenza-like illness ICD Codes: R69 - Illness, unspecified SNOMED: 54351870 (6) Cough ICD Codes: R05 - Cough SNOMED: 61977954 (7) Sepsis ICD Codes: A41.9 - Sepsis, unspecified organism SNOMED: 98985610 Qualifiers: Qualified Codes: A41.9 - Sepsis, unspecified organism (8) Pneumonia ICD Codes: J18.9 - Pneumonia SNOMED: 161517243 Status: stable, progressing, tolerating diet Assessment/Plan o2 pulm tx abx ot pt diet cbc bmp am heme eval dc plan w hh Subjective Constitutional: Reports: weakness Allergies: Coded Allergies: No Known Allergies (Unverified , 06/17/12) All Systems: reviewed and negative except above Subjective sitting tired o2 nc Objective Last 24 Hour Vital Signs Date Time Temp Pulse Resp B/P (MAP) Pulse Ox O2 Delivery O2 Flow Rate FiO2 07/20/17 12:00 97.8 83 20 143/64 89 07/20/17 09:23 73 132/65 07/20/17 08:00 97.7 84 18 131/60 92 07/20/17 07:01 93 Nasal Cannula 2.0 28 07/20/17 07:01 73 18 Nasal Cannula 2.0 28 07/20/17 07:01 Nasal Cannula 2.0 28 07/20/17 04:45 2.0 07/20/17 04:44 98.0 78 20 129/51 90 Nasal Cannula 07/20/17 00:30 2.0 07/20/17 00:26 98.2 79 20 122/49 90 Nasal Cannula 07/19/17 21:38 98.2 80 20 92 Nasal Cannula 07/19/17 20:29 100 22 91 Nasal Cannula 2.0 28 07/19/17 20:21 99 18 92 Nasal Cannula 2.0 28 07/19/17 20:00 98.2 80 20 139/67 92 Nasal Cannula 07/19/17 20:00 2.0 07/19/17 19:53 Nasal Cannula 2.0 28 07/19/17 19:52 92 Nasal Cannula 2.0 28 07/19/17 19:52 79 18 Nasal Cannula 2.0 28 07/19/17 16:00 98.2 72 20 134/62 92 Intake and Output 07/19/17 07/20/17 19:00 07:00 Intake Total 480 ml 115 ml Balance 480 ml 115 ml Intake Oral 480 ml IV Total 115 ml # Voids 3 3 Laboratory Tests 07/20/17 04:15: White Blood Count 18.9H, Red Blood Count 3.67L, Hemoglobin 8.9L, Hematocrit 28.8L, Mean Corpuscular Volume 78L, Mean Corpuscular Hemoglobin 24.3L, Mean Corpuscular Hemoglobin Concent 31.0L, Red Cell Distribution Width 18.4H, Platelet Count 370, Mean Platelet Volume 6.7, Neutrophils (%) (Auto) , Lymphocytes (%) (Auto) , Monocytes (%) (Auto) , Eosinophils (%) (Auto) , Basophils (%) (Auto) , Differential Total Cells Counted 100, Neutrophils % ( Manual) 80H, Lymphocytes % (Manual) 12L, Monocytes % (Manual) 4, Eosinophils % ( Manual) 0, Basophils % (Manual) 0, Band Neutrophils 4, Platelet Estimate Adequate, Platelet Morphology Normal, Anisocytosis 2+, Microcytosis 1+, Reticulocyte Count [Pending], Sodium Level 137, Potassium Level 4.1, Chloride Level 101, Carbon Dioxide Level 27, Anion Gap 9, Blood Urea Nitrogen 12, Creatinine 0.9, Estimat Glomerular Filtration Rate , Glucose Level 86, Calcium Level 9.2 Height (Feet): 5 Height (Inches): 0.00 Weight (Pounds): 205 General Appearance: lethargic EENT: normal ENT inspection Neck: normal alignment Cardiovascular: normal peripheral pulses, normal rate, regular rhythm Respiratory/Chest: decreased breath sounds Abdomen: normal bowel sounds, non tender, soft Extremities: normal inspection Edema: no edema noted Arm (L), no edema noted Arm (R), no edema noted Leg (L), no edema noted Leg (R), no edema noted Pedal (L), no edema noted Pedal (R), no edema noted Generalized Neurologic: responsive, motor weakness Skin: normal pigmentation, warm/dry QAMAR WALLACE Jul 20, 2017 15:28
[2017-07-20 16:00] VITALS: BP 132/52
[2017-07-20] MEDS: Cefepime HCl 2 GM in NS 55 ML IVPB SCH (18:23)
--- NOTE | 2017-07-20 18:26 | Diagnostic Imaging Report ---
Indication: Shortness of breath Technique: XRAY Chest 1v Comparison: One 01/14/2020 Findings: Heart size and mediastinal contours are stable. Persistent interstitial opacities bilaterally, slightly increased. There is persistent hazy opacity of the right lower lung, slightly improved from the prior exam. Patchy left basilar atelectasis is unchanged. No pneumothorax Impression: Cardiomegaly and interstitial edema/opacification with slight interval improved aeration in the right lower lung compared to the prior exam.
--- NOTE | 2017-07-20 18:47 | Pulmonology Progress Note ---
Assessment/Plan Problems: (1) Acute hypoxemic respiratory failure (2) Sepsis (3) COPD (chronic obstructive pulmonary disease) (4) Community acquired pneumonia (5) Chronic liver disease Assessment/Plan wbc lower today less tachycardic continue cefepime, vancomycin and Tamiflue respiratory treatment med/surg dc planning soon Subjective ROS Limited/Unobtainable: No Constitutional: Reports: no symptoms HEENT: Repors: no symptoms Respiratory: Reports: no symptoms Allergies: Coded Allergies: No Known Allergies (Unverified , 06/17/12) Objective Last 24 Hour Vital Signs Date Time Temp Pulse Resp B/P (MAP) Pulse Ox O2 Delivery O2 Flow Rate FiO2 07/20/17 16:00 98.6 83 19 132/52 88 07/20/17 12:00 97.8 83 20 143/64 89 07/20/17 09:23 73 132/65 07/20/17 08:00 97.7 84 18 131/60 92 07/20/17 07:01 93 Nasal Cannula 2.0 28 07/20/17 07:01 73 18 Nasal Cannula 2.0 28 07/20/17 07:01 Nasal Cannula 2.0 28 07/20/17 04:45 2.0 07/20/17 04:44 98.0 78 20 129/51 90 Nasal Cannula 07/20/17 00:30 2.0 07/20/17 00:26 98.2 79 20 122/49 90 Nasal Cannula 07/19/17 21:38 98.2 80 20 92 Nasal Cannula 07/19/17 20:29 100 22 91 Nasal Cannula 2.0 28 07/19/17 20:21 99 18 92 Nasal Cannula 2.0 28 07/19/17 20:00 98.2 80 20 139/67 92 Nasal Cannula 07/19/17 20:00 2.0 07/19/17 19:53 Nasal Cannula 2.0 28 07/19/17 19:52 92 Nasal Cannula 2.0 28 07/19/17 19:52 79 18 Nasal Cannula 2.0 28 Intake and Output 07/19/17 07/20/17 19:00 07:00 Intake Total 480 ml 115 ml Balance 480 ml 115 ml Intake Oral 480 ml IV Total 115 ml # Voids 3 3 Objective General Appearance: WD/WN, no apparent distress Lines, tubes and drains: peripheral HEENT: normocephalic, atraumatic Neck: non-tender, normal alignment Respiratory/Chest: chest wall non-tender, lungs clear Cardiovascular/Chest: regular rhythm Abdomen: normal bowel sounds, non tender Extremities: normal range of motion, non-tender Skin Exam: normal pigmentation Neurologic: no motor/sensory deficits Laboratory Tests 07/20/17 04:15: White Blood Count 18.9H, Red Blood Count 3.67L, Hemoglobin 8.9L, Hematocrit 28.8L, Mean Corpuscular Volume 78L, Mean Corpuscular Hemoglobin 24.3L, Mean Corpuscular Hemoglobin Concent 31.0L, Red Cell Distribution Width 18.4H, Platelet Count 370, Mean Platelet Volume 6.7, Neutrophils (%) (Auto) , Lymphocytes (%) (Auto) , Monocytes (%) (Auto) , Eosinophils (%) (Auto) , Basophils (%) (Auto) , Differential Total Cells Counted 100, Neutrophils % ( Manual) 80H, Lymphocytes % (Manual) 12L, Monocytes % (Manual) 4, Eosinophils % ( Manual) 0, Basophils % (Manual) 0, Band Neutrophils 4, Platelet Estimate Adequate, Platelet Morphology Normal, Anisocytosis 2+, Microcytosis 1+, Reticulocyte Count 2.7H, Sodium Level 137, Potassium Level 4.1, Chloride Level 101, Carbon Dioxide Level 27, Anion Gap 9, Blood Urea Nitrogen 12, Creatinine 0.9, Estimat Glomerular Filtration Rate , Glucose Level 86, Calcium Level 9.2 Current Medications Medications (Trade) Dose Ordered Sig/Ana Maria Route PRN Reason Start Time Stop Time Status Last Admin Dose Admin Acetaminophen (Tylenol) 650 mg Q4H PRN ORAL FEVER (temp>100.5F) 07/18/17 14:45 08/11/17 14:44 Amlodipine Besylate (Norvasc) 10 mg DAILY ORAL 07/19/17 09:00 08/12/17 08:59 07/20/17 09:23 Cefepime HCl 2 gm/ Sodium Chloride 55 ml @ 110 mls/hr Q24H IVPB 07/18/17 18:30 07/21/17 18:29 07/20/17 18:23 Dextrose (Dextrose 50%) STAT PRN IV Hypoglycemia 07/18/17 13:30 08/11/17 13:29 Ferrous Sulfate (Feosol) 325 mg BIAC ORAL 07/20/17 16:30 08/19/17 16:29 07/20/17 16:44 Gabapentin (Neurontin) 300 mg BEDTIME ORAL 07/18/17 21:00 08/11/17 20:59 07/19/17 21:04 Glimepiride (Amaryl) 2 mg BEFORE BREAKFAST ORAL 07/19/17 06:30 08/12/17 06:29 07/20/17 06:59 Heparin Sodium (Porcine) (Heparin 5000 units/ml) 5,000 units EVERY 12 HOURS SUBQ 07/18/17 21:00 08/11/17 20:59 07/20/17 09:27 Insulin Aspart (NovoLOG) BEFORE MEALS AND HS SUBQ 07/18/17 16:30 08/11/17 17:29 07/20/17 12:16 Morphine Sulfate (Morphine Sulfate) 2 mg Q4H PRN IVP For Pain 07/18/17 13:00 07/21/17 08:59 07/20/17 05:06 Nebivolol (Bystolic) 10 mg DAILY ORAL 07/19/17 09:00 08/18/17 08:59 07/19/17 08:24 Ondansetron HCl (Zofran) 4 mg Q6H PRN IVP Nausea & Vomiting 07/18/17 13:30 08/11/17 13:29 Polyethylene Glycol (Miralax) 17 gm DAILYPRN PRN ORAL Constipation 07/18/17 13:30 08/11/17 13:29 Promethazine HCl/ Codeine (Phenergan with Codeine) 5 ml Q4H PRN ORAL For Cough 07/18/17 13:30 08/11/17 13:29 07/20/17 18:25 KYMBERLY JURADO Jul 20, 2017 18:46
[2017-07-20 20:00] VITALS: BP 135/57
[2017-07-20] MEDS ORDERED: Augmentin 875mg Tab ORAL SCH (21:00)
--- NOTE | 2017-07-20 21:55 | Cardiology Progress Note ---
Assessment/Plan Assessment/Plan 1. Dyspnea, most likely due to community-acquired pneumonia. Echocardiography reveals normal LV systolic function with LVEF at 65%. Continue IV ABx therapy, pulmonary toilet, nebulizer treatment. 2. Severe pulmonary HTN by echo, ? due to underlying COPD. 3. History of hypertension, well controlled, continue Bystolic. 4. History of diabetes mellitus. 5. ST due to hypoxemia/sepsis, continue Bystolic. Subjective Subjective Denies chest pain or SOB. No cardiac events reported. Objective Last 24 Hour Vital Signs Date Time Temp Pulse Resp B/P (MAP) Pulse Ox O2 Delivery O2 Flow Rate FiO2 07/20/17 19:10 Nasal Cannula 2.0 28 07/20/17 19:10 85 20 Nasal Cannula 2.0 28 07/20/17 19:10 93 Nasal Cannula 2.0 28 07/20/17 16:00 98.6 83 19 132/52 88 07/20/17 12:00 97.8 83 20 143/64 89 07/20/17 09:23 73 132/65 07/20/17 08:00 97.7 84 18 131/60 92 07/20/17 07:01 93 Nasal Cannula 2.0 28 07/20/17 07:01 73 18 Nasal Cannula 2.0 28 07/20/17 07:01 Nasal Cannula 2.0 28 07/20/17 04:45 2.0 07/20/17 04:44 98.0 78 20 129/51 90 Nasal Cannula 07/20/17 00:30 2.0 07/20/17 00:26 98.2 79 20 122/49 90 Nasal Cannula Intake and Output 07/19/17 07/20/17 19:00 07:00 Intake Total 480 ml 115 ml Balance 480 ml 115 ml Intake Oral 480 ml IV Total 115 ml # Voids 3 3 2D Echo: LVEF 65%, RVSP 60 mmHg, Mild MR, Grade I lVDD, Mild , NORMA at 1.5 cm2 Laboratory Tests Test 07/20/17 04:15 White Blood Count 18.9 K/UL (4.8-10.8) H Red Blood Count 3.67 M/UL (4.20-5.40) L Hemoglobin 8.9 G/DL (12.0-16.0) L Hematocrit 28.8 % (37.0-47.0) L Mean Corpuscular Volume 78 FL (80-99) L Mean Corpuscular Hemoglobin 24.3 PG (27.0-31.0) L Mean Corpuscular Hemoglobin Concent 31.0 G/DL (32.0-36.0) L Red Cell Distribution Width 18.4 % (11.6-14.8) H Platelet Count 370 K/UL (150-450) Mean Platelet Volume 6.7 FL (6.5-10.1) Neutrophils (%) (Auto) % (45.0-75.0) Lymphocytes (%) (Auto) % (20.0-45.0) Monocytes (%) (Auto) % (1.0-10.0) Eosinophils (%) (Auto) % (0.0-3.0) Basophils (%) (Auto) % (0.0-2.0) Differential Total Cells Counted 100 Neutrophils % (Manual) 80 % (45-75) H Lymphocytes % (Manual) 12 % (20-45) L Monocytes % (Manual) 4 % (1-10) Eosinophils % (Manual) 0 % (0-3) Basophils % (Manual) 0 % (0-2) Band Neutrophils 4 % (0-8) Platelet Estimate Adequate Platelet Morphology Normal Anisocytosis 2+ Microcytosis 1+ Reticulocyte Count 2.7 % (0.0-2.0) H Sodium Level 137 MMOL/L (136-145) Potassium Level 4.1 MMOL/L (3.5-5.1) Chloride Level 101 MMOL/L (98-107) Carbon Dioxide Level 27 MMOL/L (21-32) Anion Gap 9 mmol/L (5-15) Blood Urea Nitrogen 12 mg/dL (7-18) Creatinine 0.9 MG/DL (0.55-1.30) Estimat Glomerular Filtration Rate mL/min (>60) Glucose Level 86 MG/DL (74-106) Calcium Level 9.2 MG/DL (8.5-10.1) HEENT: Atraumatic and normocephalic. Anicteric. Pupils are equal, round, and reactive to light and accommodation. Periorbital edema is evident. NECK: JVP is less than 5 cm. No carotid bruit. Carotid upstrokes 2+ bilaterally. CARDIOVASCULAR: Normal S1 and S2. Regular rate and rhythm. Tachycardic. No murmurs, gallops, or rubs. LUNGS: Bilateral crackles, mostly in the basilar parts. ABDOMEN: Soft, nontender, and nondistended. No hepatosplenomegaly. Positive bowel sounds. EXTREMITIES: No evidence of edema, clubbing, or cyanosis. Objective HEENT: Atraumatic and normocephalic. Anicteric. Pupils are equal, round, and reactive to light and accommodation. Periorbital edema is evident. NECK: JVP is less than 5 cm. No carotid bruit. Carotid upstrokes 2+ bilaterally. CARDIOVASCULAR: Normal S1 and S2. Regular rate and rhythm. 2/6 ESM at LSB, no gallops or rubs. LUNGS: Bilateral crackles, mostly in the basilar parts. ABDOMEN: Soft, nontender, and nondistended. No hepatosplenomegaly. Positive bowel sounds. EXTREMITIES: No evidence of edema, clubbing, or cyanosis. MERNA MCCLELLAN Jul 20, 2017 21:55
[2017-07-21] VITALS: BP 119/50
[2017-07-21 04:00] VITALS: BP 141/56
[2017-07-21] MEDS: Glimepiride 1mg tab ORAL SCH (06:18)
[2017-07-21] MEDS: NovoLOG Insulin Flexpen SUBQ SCH ×4 (06:19→21:25)
[2017-07-21 07:07] LABS: HEMATOCRIT 28.2 % (37.0-47.0); HEMOGLOBIN 8.8 G/DL (12.0-16.0); MEAN CORPUSCULAR VOLUME 78 FL (80-99); PLATELET COUNT 355 K/UL (150-450); RED BLOOD COUNT 3.62 M/UL (4.20-5.40); RED CELL DISTRIBUTION WIDTH 18.4 % (11.6-14.8)
[2017-07-21 07:19] LABS: WHITE BLOOD COUNT 22.6 K/UL (4.8-10.8)
[2017-07-21 07:35] LABS: ANION GAP 7 mmol/L (5-15); BLOOD UREA NITROGEN 10 mg/dL (7-18); CALCIUM 9.3 MG/DL (8.5-10.1); CARBON DIOXIDE 27 MMOL/L (21-32); CHLORIDE 104 MMOL/L (98-107); CREATININE 0.9 MG/DL (0.55-1.30); POTASSIUM 4.4 MMOL/L (3.5-5.1); SODIUM 137 MMOL/L (136-145)
--- NOTE | 2017-07-21 07:43 | General Progress Note ---
Assessment/Plan Problem List: (1) Community acquired pneumonia ICD Codes: J18.9 - Pneumonia, unspecified organism SNOMED: 821188511 (2) COPD exacerbation ICD Codes: J44.1 - Chronic obstructive pulmonary disease with (acute) exacerbation SNOMED: 211434397 (3) Acute hypoxemic respiratory failure ICD Codes: J96.01 - Acute respiratory failure with hypoxia SNOMED: 465230144 (4) Leukocytosis ICD Codes: D72.829 - Elevated white blood cell count, unspecified SNOMED: 848415370, 721914589 (5) Influenza-like illness ICD Codes: R69 - Illness, unspecified SNOMED: 86522452 (6) Cough ICD Codes: R05 - Cough SNOMED: 68614398 (7) Sepsis ICD Codes: A41.9 - Sepsis, unspecified organism SNOMED: 16107763 Qualifiers: Qualified Codes: A41.9 - Sepsis, unspecified organism (8) Pneumonia ICD Codes: J18.9 - Pneumonia SNOMED: 333651563 Status: stable, progressing, tolerating diet Assessment/Plan o2 pulm tx abx ot pt diet cbc bmp am heme eval dc plan w hh Subjective Constitutional: Reports: weakness Allergies: Coded Allergies: No Known Allergies (Unverified , 06/17/12) All Systems: reviewed and negative except above Subjective sitting tired o2 nc Objective Last 24 Hour Vital Signs Date Time Temp Pulse Resp B/P (MAP) Pulse Ox O2 Delivery O2 Flow Rate FiO2 07/21/17 04:00 97.5 75 21 141/56 90 Nasal Cannula 2.0 07/21/17 00:00 97.9 82 19 119/50 82 Nasal Cannula 2.0 07/20/17 20:00 97.5 85 21 135/57 89 Nasal Cannula 2.0 07/20/17 19:10 Nasal Cannula 2.0 28 07/20/17 19:10 85 20 Nasal Cannula 2.0 28 07/20/17 19:10 93 Nasal Cannula 2.0 28 07/20/17 16:00 98.6 83 19 132/52 88 07/20/17 12:00 97.8 83 20 143/64 89 07/20/17 09:23 73 132/65 07/20/17 08:00 97.7 84 18 131/60 92 Intake and Output 07/20/17 07/21/17 19:00 07:00 Intake Total 900 ml 480 ml Balance 900 ml 480 ml Intake Oral 900 ml 480 ml # Voids 7 3 Laboratory Tests 07/21/17 04:35: White Blood Count 22.6*H, Red Blood Count 3.62L, Hemoglobin 8.8L, Hematocrit 28.2L, Mean Corpuscular Volume 78L, Mean Corpuscular Hemoglobin 24.4L, Mean Corpuscular Hemoglobin Concent 31.2L, Red Cell Distribution Width 18.4H, Platelet Count 355, Mean Platelet Volume 6.1L, Neutrophils (%) (Auto) , Lymphocytes (%) (Auto) , Monocytes (%) (Auto) , Eosinophils (%) (Auto) , Basophils (%) (Auto) , Neutrophils % (Manual) [Pending], Lymphocytes % (Manual) [Pending], Platelet Estimate [Pending], Platelet Morphology [Pending], Sodium Level [Pending], Potassium Level [Pending], Chloride Level [Pending], Carbon Dioxide Level [Pending], Blood Urea Nitrogen [Pending], Creatinine [Pending], Estimat Glomerular Filtration Rate [Pending], Glucose Level [Pending], Calcium Level [Pending] Height (Feet): 5 Height (Inches): 0.00 Weight (Pounds): 205 General Appearance: lethargic EENT: normal ENT inspection Neck: normal alignment Cardiovascular: normal peripheral pulses, normal rate, regular rhythm Respiratory/Chest: decreased breath sounds Abdomen: normal bowel sounds, non tender, soft Extremities: normal inspection Edema: no edema noted Arm (L), no edema noted Arm (R), no edema noted Leg (L), no edema noted Leg (R), no edema noted Pedal (L), no edema noted Pedal (R), no edema noted Generalized Neurologic: responsive, motor weakness Skin: normal pigmentation, warm/dry QAMAR WALLACE Jul 21, 2017 07:43
[2017-07-21 08:00] VITALS: BP 139/58
[2017-07-21] MEDS: Heparin 5000 units/ml inj SUBQ SCH ×2 (09:00→21:28)
--- NOTE | 2017-07-21 12:48 | Nephrology Progress Note ---
Assessment/Plan Assessment 1.dulce 2.hypocalcemia 3.hyponatremia 4.pna Plan plan to continue iv antibiotic mix all ivp with ns.9 check vit d monitoring renal function avoid NSAID replace electrolyte as need it Subjective Constitutional: Reports: no symptoms HEENT: Reports: no symptoms Neurologic/Psychiatric: Reports: no symptoms Subjective alert and awake feeling better Objective Objective Last 24 Hour Vital Signs Date Time Temp Pulse Resp B/P (MAP) Pulse Ox O2 Delivery O2 Flow Rate FiO2 07/21/17 08:59 92 139/58 07/21/17 08:00 97.9 92 20 139/58 92 Nasal Cannula 3.0 07/21/17 07:50 Nasal Cannula 2.0 28 07/21/17 07:50 82 20 Nasal Cannula 2.0 28 07/21/17 07:50 95 Nasal Cannula 2.0 28 07/21/17 04:00 97.5 75 21 141/56 90 Nasal Cannula 2.0 07/21/17 00:00 97.9 82 19 119/50 82 Nasal Cannula 2.0 07/20/17 20:00 97.5 85 21 135/57 89 Nasal Cannula 2.0 07/20/17 19:10 Nasal Cannula 2.0 28 07/20/17 19:10 85 20 Nasal Cannula 2.0 28 07/20/17 19:10 93 Nasal Cannula 2.0 28 07/20/17 16:00 98.6 83 19 132/52 88 Intake and Output 07/20/17 07/21/17 19:00 07:00 Intake Total 900 ml 480 ml Balance 900 ml 480 ml Intake Oral 900 ml 480 ml # Voids 7 3 Laboratory Tests 07/21/17 04:35: White Blood Count 22.6*H, Red Blood Count 3.62L, Hemoglobin 8.8L, Hematocrit 28.2L, Mean Corpuscular Volume 78L, Mean Corpuscular Hemoglobin 24.4L, Mean Corpuscular Hemoglobin Concent 31.2L, Red Cell Distribution Width 18.4H, Platelet Count 355, Mean Platelet Volume 6.1L, Neutrophils (%) (Auto) , Lymphocytes (%) (Auto) , Monocytes (%) (Auto) , Eosinophils (%) (Auto) , Basophils (%) (Auto) , Differential Total Cells Counted 100, Neutrophils % ( Manual) 82H, Lymphocytes % (Manual) 14L, Monocytes % (Manual) 2, Eosinophils % ( Manual) 2, Basophils % (Manual) 0, Band Neutrophils 0, Platelet Estimate Adequate, Platelet Morphology Normal, Hypochromasia 1+, Anisocytosis 1+, Microcytosis 1+, Sodium Level 137, Potassium Level 4.4, Chloride Level 104, Carbon Dioxide Level 27, Anion Gap 7, Blood Urea Nitrogen 10, Creatinine 0.9, Estimat Glomerular Filtration Rate , Glucose Level 132H, Calcium Level 9.3 Height (Feet): 5 Height (Inches): 0.00 Weight (Pounds): 205 Objective HEENT: Atraumatic and normocephalic. Anicteric. Pupils are equal, round, and reactive to light and accommodation. Periorbital edema is evident. NECK: JVP is less than 5 cm. No carotid bruit. Carotid upstrokes 2+ bilaterally. CARDIOVASCULAR: Normal S1 and S2. Regular rate and rhythm. Tachycardic. No murmurs, gallops, or rubs. LUNGS: Bilateral crackles, mostly in the basilar parts. ABDOMEN: Soft, nontender, and nondistended. No hepatosplenomegaly. Positive bowel sounds. EXTREMITIES: No evidence of edema, clubbing, or cyanosis. BALIRE SANCHEZ Jul 21, 2017 12:48
--- NOTE | 2017-07-21 16:10 | Cardiology Report ---
APPROVED REPORT EKG Measurement Heart [id number] Sinus tachycardia Otherwise normal ECG
--- NOTE | 2017-07-21 16:12 | Pulmonology Progress Note ---
Assessment/Plan Problems: (1) Acute hypoxemic respiratory failure (2) Sepsis (3) COPD (chronic obstructive pulmonary disease) (4) Community acquired pneumonia (5) Chronic liver disease Assessment/Plan cxr reviewed wbc lower today less tachycardic continue cefepime, vancomycin and Tamiflue respiratory treatment med/surg dc planning soon Subjective ROS Limited/Unobtainable: No Interval Events: wimproving slowly Allergies: Coded Allergies: No Known Allergies (Unverified , 06/17/12) Objective Last 24 Hour Vital Signs Date Time Temp Pulse Resp B/P (MAP) Pulse Ox O2 Delivery O2 Flow Rate FiO2 07/21/17 08:59 92 139/58 07/21/17 08:00 97.9 92 20 139/58 92 Nasal Cannula 3.0 07/21/17 07:50 Nasal Cannula 2.0 28 07/21/17 07:50 82 20 Nasal Cannula 2.0 28 07/21/17 07:50 95 Nasal Cannula 2.0 28 07/21/17 04:00 97.5 75 21 141/56 90 Nasal Cannula 2.0 07/21/17 00:00 97.9 82 19 119/50 82 Nasal Cannula 2.0 07/20/17 20:00 97.5 85 21 135/57 89 Nasal Cannula 2.0 07/20/17 19:10 Nasal Cannula 2.0 28 07/20/17 19:10 85 20 Nasal Cannula 2.0 28 07/20/17 19:10 93 Nasal Cannula 2.0 28 Intake and Output 07/20/17 07/21/17 19:00 07:00 Intake Total 900 ml 480 ml Balance 900 ml 480 ml Intake Oral 900 ml 480 ml # Voids 7 3 Objective General Appearance: WD/WN, no apparent distress Lines, tubes and drains: peripheral HEENT: normocephalic, atraumatic Neck: non-tender, normal alignment Respiratory/Chest: chest wall non-tender, lungs clear Cardiovascular/Chest: regular rhythm Abdomen: normal bowel sounds, non tender Extremities: normal range of motion, non-tender Skin Exam: normal pigmentation Neurologic: no motor/sensory deficits Laboratory Tests 07/21/17 04:35: White Blood Count 22.6*H, Red Blood Count 3.62L, Hemoglobin 8.8L, Hematocrit 28.2L, Mean Corpuscular Volume 78L, Mean Corpuscular Hemoglobin 24.4L, Mean Corpuscular Hemoglobin Concent 31.2L, Red Cell Distribution Width 18.4H, Platelet Count 355, Mean Platelet Volume 6.1L, Neutrophils (%) (Auto) , Lymphocytes (%) (Auto) , Monocytes (%) (Auto) , Eosinophils (%) (Auto) , Basophils (%) (Auto) , Differential Total Cells Counted 100, Neutrophils % ( Manual) 82H, Lymphocytes % (Manual) 14L, Monocytes % (Manual) 2, Eosinophils % ( Manual) 2, Basophils % (Manual) 0, Band Neutrophils 0, Platelet Estimate Adequate, Platelet Morphology Normal, Hypochromasia 1+, Anisocytosis 1+, Microcytosis 1+, Sodium Level 137, Potassium Level 4.4, Chloride Level 104, Carbon Dioxide Level 27, Anion Gap 7, Blood Urea Nitrogen 10, Creatinine 0.9, Estimat Glomerular Filtration Rate , Glucose Level 132H, Calcium Level 9.3 Current Medications Medications (Trade) Dose Ordered Sig/Ana Maria Route PRN Reason Start Time Stop Time Status Last Admin Dose Admin Acetaminophen (Tylenol) 650 mg Q4H PRN ORAL FEVER (temp>100.5F) 07/18/17 14:45 08/11/17 14:44 Amlodipine Besylate (Norvasc) 10 mg DAILY ORAL 07/19/17 09:00 08/12/17 08:59 07/21/17 08:59 Dextrose (Dextrose 50%) STAT PRN IV Hypoglycemia 07/18/17 13:30 08/11/17 13:29 Ferrous Sulfate (Feosol) 325 mg BIAC ORAL 07/20/17 16:30 08/19/17 16:29 07/21/17 06:18 Gabapentin (Neurontin) 300 mg BEDTIME ORAL 07/18/17 21:00 08/11/17 20:59 07/20/17 20:33 Glimepiride (Amaryl) 2 mg BEFORE BREAKFAST ORAL 07/19/17 06:30 08/12/17 06:29 07/21/17 06:18 Heparin Sodium (Porcine) (Heparin 5000 units/ml) 5,000 units EVERY 12 HOURS SUBQ 07/18/17 21:00 08/11/17 20:59 07/21/17 09:00 Insulin Aspart (NovoLOG) BEFORE MEALS AND HS SUBQ 07/18/17 16:30 08/11/17 17:29 07/21/17 13:05 Levofloxacin (Levaquin) 750 mg DAILY ORAL 07/21/17 09:00 07/28/17 08:59 07/21/17 08:59 Nebivolol (Bystolic) 10 mg DAILY ORAL 07/19/17 09:00 08/18/17 08:59 07/21/17 09:03 Ondansetron HCl (Zofran) 4 mg Q6H PRN IVP Nausea & Vomiting 07/18/17 13:30 08/11/17 13:29 Polyethylene Glycol (Miralax) 17 gm DAILYPRN PRN ORAL Constipation 07/18/17 13:30 08/11/17 13:29 Promethazine HCl/ Codeine (Phenergan with Codeine) 5 ml Q4H PRN ORAL For Cough 07/18/17 13:30 08/11/17 13:29 07/20/17 18:25 KYMBERLY JURADO Jul 21, 2017 16:12
[2017-07-21 16:38] VITALS: BP 131/70
[2017-07-21 20:00] VITALS: BP 143/70
[2017-07-21 20:17] VITALS: BP 145/70
[2017-07-22 00:31] VITALS: BP 157/77
[2017-07-22 04:00] VITALS: BP 134/52
[2017-07-22] MEDS: Glimepiride 1mg tab ORAL SCH (06:43)
[2017-07-22] MEDS: NovoLOG Insulin Flexpen SUBQ SCH ×4 (06:46→21:32)
[2017-07-22 07:39] LABS: HEMATOCRIT 26.6 % (37.0-47.0); HEMOGLOBIN 8.4 G/DL (12.0-16.0); MEAN CORPUSCULAR VOLUME 78 FL (80-99); PLATELET COUNT 332 K/UL (150-450); RED CELL DISTRIBUTION WIDTH 18.6 % (11.6-14.8); WHITE BLOOD COUNT 18.2 K/UL (4.8-10.8)
[2017-07-22 07:48] LABS: ANION GAP 6 mmol/L (5-15); BLOOD UREA NITROGEN 8 mg/dL (7-18); CALCIUM 9.3 MG/DL (8.5-10.1); CARBON DIOXIDE 28 MMOL/L (21-32); CHLORIDE 104 MMOL/L (98-107); CREATININE 0.9 MG/DL (0.55-1.30); POTASSIUM 3.9 MMOL/L (3.5-5.1); SODIUM 138 MMOL/L (136-145)
[2017-07-22 08:00] VITALS: BP 144/66
--- NOTE | 2017-07-22 08:00 | General Progress Note ---
Assessment/Plan Problem List: (1) Community acquired pneumonia ICD Codes: J18.9 - Pneumonia, unspecified organism SNOMED: 453868741 (2) COPD exacerbation ICD Codes: J44.1 - Chronic obstructive pulmonary disease with (acute) exacerbation SNOMED: 860907992 (3) Acute hypoxemic respiratory failure ICD Codes: J96.01 - Acute respiratory failure with hypoxia SNOMED: 194173864 (4) Leukocytosis ICD Codes: D72.829 - Elevated white blood cell count, unspecified SNOMED: 589476720, 537002428 (5) Influenza-like illness ICD Codes: R69 - Illness, unspecified SNOMED: 72768680 (6) Cough ICD Codes: R05 - Cough SNOMED: 23603332 (7) Sepsis ICD Codes: A41.9 - Sepsis, unspecified organism SNOMED: 04119605 Qualifiers: Qualified Codes: A41.9 - Sepsis, unspecified organism (8) Pneumonia ICD Codes: J18.9 - Pneumonia SNOMED: 052713188 Status: unchanged Assessment/Plan o2 pulm tx abx ot pt diet cbc bmp am heme eval dc plan w hh Subjective Constitutional: Reports: weakness Allergies: Coded Allergies: No Known Allergies (Unverified , 06/17/12) All Systems: reviewed and negative except above Subjective sitting tired o2 nc Objective Last 24 Hour Vital Signs Date Time Temp Pulse Resp B/P (MAP) Pulse Ox O2 Delivery O2 Flow Rate FiO2 07/22/17 04:00 97.3 81 20 134/52 91 Nasal Cannula 3.0 07/22/17 00:31 97.3 75 20 157/77 90 07/21/17 20:17 97.5 73 20 145/70 93 07/21/17 20:00 97.5 73 20 143/70 93 Nasal Cannula 3.0 07/21/17 19:30 94 Nasal Cannula 2.0 28 07/21/17 19:30 84 20 Nasal Cannula 2.0 28 07/21/17 19:30 Nasal Cannula 2.0 28 07/21/17 16:38 98.2 82 20 131/70 07/21/17 08:59 92 139/58 Intake and Output 07/21/17 07/22/17 19:00 07:00 Intake Total 360 ml 480 ml Balance 360 ml 480 ml Intake Oral 360 ml 480 ml # Voids 4 # Bowel Movements 3 Laboratory Tests 07/22/17 06:10: White Blood Count 18.2H, Red Blood Count 3.40L, Hemoglobin 8.4L, Hematocrit 26.6L, Mean Corpuscular Volume 78L, Mean Corpuscular Hemoglobin 24.7L, Mean Corpuscular Hemoglobin Concent 31.5L, Red Cell Distribution Width 18.6H, Platelet Count 332, Mean Platelet Volume 7.1, Neutrophils (%) (Auto) , Lymphocytes (%) (Auto) , Monocytes (%) (Auto) , Eosinophils (%) (Auto) , Basophils (%) (Auto) , Neutrophils % (Manual) [Pending], Lymphocytes % (Manual) [Pending], Platelet Estimate [Pending], Platelet Morphology [Pending], Sodium Level 138, Potassium Level 3.9, Chloride Level 104, Carbon Dioxide Level 28, Anion Gap 6, Blood Urea Nitrogen 8, Creatinine 0.9, Estimat Glomerular Filtration Rate , Glucose Level 135H, Calcium Level 9.3 Height (Feet): 5 Height (Inches): 0.00 Weight (Pounds): 205 General Appearance: lethargic EENT: normal ENT inspection Neck: normal alignment Cardiovascular: normal peripheral pulses, normal rate, regular rhythm Respiratory/Chest: decreased breath sounds Abdomen: normal bowel sounds, non tender, soft Extremities: normal inspection Edema: no edema noted Arm (L), no edema noted Arm (R), no edema noted Leg (L), no edema noted Leg (R), no edema noted Pedal (L), no edema noted Pedal (R), no edema noted Generalized Neurologic: responsive, motor weakness Skin: normal pigmentation, warm/dry QAMAR WALLACE Jul 22, 2017 08:00
[2017-07-22] MEDS: Promethazine/Codeine 5ml UD ORAL PRN (08:36)
[2017-07-22] MEDS: Heparin 5000 units/ml inj SUBQ SCH ×2 (08:40→21:35)
--- NOTE | 2017-07-22 12:39 | General Progress Note ---
Assessment/Plan Assessment/Plan # Anemia of iron deficiency --> begin on ferrous sulfate --> consider gi eval in setting of KEENAN # Leukocytosis likely related to sepsis/infection - on abx # Bradycardia - monitor closely is better' # COPD # Chronic liver disease Subjective Constitutional: Denies: no symptoms, chills, diaphoresis, fever, malaise, weakness, other HEENT: Denies: no symptoms, eye pain, blurred vision, tearing, double vision, ear pain, ear discharge, nose pain, nose congestion, throat pain, throat swelling, mouth pain, mouth swelling, other Cardiovascular: Denies: no symptoms, chest pain, edema, irregular heart rate, lightheadedness, palpitations, syncope, other Respiratory: Denies: no symptoms, cough, orthopnea, shortness of breath, SOB with excertion, SOB at rest, sputum, stridor, wheezing, other Gastrointestinal/Abdominal: Denies: no symptoms, abdomen distended, abdominal pain, black stools, tarry stools, blood in stool, constipated, diarrhea, difficulty swallowing, nausea, poor appetite, poor fluid intake, rectal bleeding , vomiting, other Genitourinary: Denies: no symptoms, burning, discharge, frequency, flank pain, hematuria, incontinence, pain, urgency, other Neurologic/Psychiatric: Denies: no symptoms, anxiety, depressed, emotional problems, headache, numbness, paresthesia, pre-existing deficit, seizure, tingling, tremors, weakness, other Endocrine: Denies: no symptoms, excessive sweating, flushing, intolerance to cold, intolerance to heat, increased hunger, increased thirst, increased urine, unexplained weight gain, unexplained weight loss, other Hematologic/Lymphatic: Denies: no symptoms, anemia, easy bleeding, easy bruising, other Allergies: Coded Allergies: No Known Allergies (Unverified , 06/17/12) Subjective no events to report, no f/c, no night sweats Objective Last 24 Hour Vital Signs Date Time Temp Pulse Resp B/P (MAP) Pulse Ox O2 Delivery O2 Flow Rate FiO2 07/22/17 08:47 80 16 Nasal Cannula 2.0 07/22/17 08:47 92 Nasal Cannula 2.0 28 07/22/17 08:47 Nasal Cannula 2.0 28 07/22/17 08:37 83 144/66 07/22/17 08:00 98.4 83 18 144/66 91 Nasal Cannula 3.0 07/22/17 04:00 97.3 81 20 134/52 91 Nasal Cannula 3.0 07/22/17 00:31 97.3 75 20 157/77 90 07/21/17 20:17 97.5 73 20 145/70 93 07/21/17 20:00 97.5 73 20 143/70 93 Nasal Cannula 3.0 07/21/17 19:30 94 Nasal Cannula 2.0 28 07/21/17 19:30 84 20 Nasal Cannula 2.0 28 07/21/17 19:30 Nasal Cannula 2.0 28 07/21/17 16:38 98.2 82 20 131/70 Intake and Output 07/21/17 07/22/17 19:00 07:00 Intake Total 360 ml 480 ml Balance 360 ml 480 ml Intake Oral 360 ml 480 ml # Voids 4 # Bowel Movements 3 Laboratory Tests 07/22/17 06:10: White Blood Count 18.2H, Red Blood Count 3.40L, Hemoglobin 8.4L, Hematocrit 26.6L, Mean Corpuscular Volume 78L, Mean Corpuscular Hemoglobin 24.7L, Mean Corpuscular Hemoglobin Concent 31.5L, Red Cell Distribution Width 18.6H, Platelet Count 332, Mean Platelet Volume 7.1, Neutrophils (%) (Auto) , Lymphocytes (%) (Auto) , Monocytes (%) (Auto) , Eosinophils (%) (Auto) , Basophils (%) (Auto) , Differential Total Cells Counted 100, Neutrophils % ( Manual) 84H, Lymphocytes % (Manual) 8L, Monocytes % (Manual) 6, Eosinophils % ( Manual) 0, Basophils % (Manual) 0, Band Neutrophils 2, Platelet Estimate Adequate, Platelet Morphology Normal, Polychromasia 1+, Hypochromasia 1+, Anisocytosis 1+, Microcytosis 1+, Sodium Level 138, Potassium Level 3.9, Chloride Level 104, Carbon Dioxide Level 28, Anion Gap 6, Blood Urea Nitrogen 8 , Creatinine 0.9, Estimat Glomerular Filtration Rate , Glucose Level 135H, Calcium Level 9.3 Height (Feet): 5 Height (Inches): 0.00 Weight (Pounds): 205 General Appearance: no apparent distress EENT: normal ENT inspection Neck: normal alignment Cardiovascular: no gallop/murmur Respiratory/Chest: no accessory muscle use Abdomen: soft Extremities: non-tender Edema: no edema noted Leg (L), no edema noted Leg (R) Edema: mild edema Neurologic: abnormal gait Skin: warm/dry Chidi Yanez Jul 22, 2017 12:39
--- NOTE | 2017-07-22 13:05 | Infectious Diseases Prog Note ---
Assessment/Plan Assessment/Plan A Pneumonia improving COPD Influenza exposure Acute renal failure DM type 2 Morbid obesity P; continue Levaquin Subjective ROS Limited/Unobtainable: Yes Allergies: Coded Allergies: No Known Allergies (Unverified , 06/17/12) Objective Vital Signs Last 24 Hour Vital Signs Date Time Temp Pulse Resp B/P (MAP) Pulse Ox O2 Delivery O2 Flow Rate FiO2 07/22/17 08:47 80 16 Nasal Cannula 2.0 28 07/22/17 08:47 92 Nasal Cannula 2.0 28 07/22/17 08:47 Nasal Cannula 2.0 28 07/22/17 08:37 83 144/66 07/22/17 08:00 98.4 83 18 144/66 91 Nasal Cannula 3.0 07/22/17 04:00 97.3 81 20 134/52 91 Nasal Cannula 3.0 07/22/17 00:31 97.3 75 20 157/77 90 07/21/17 20:17 97.5 73 20 145/70 93 07/21/17 20:00 97.5 73 20 143/70 93 Nasal Cannula 3.0 07/21/17 19:30 94 Nasal Cannula 2.0 28 07/21/17 19:30 84 20 Nasal Cannula 2.0 28 07/21/17 19:30 Nasal Cannula 2.0 28 07/21/17 16:38 98.2 82 20 131/70 Height (Feet): 5 Height (Inches): 0.00 Weight (Pounds): 205 General Appearance: no acute distress HEENT: mucous membranes moist Respiratory/Chest: normal breath sounds Cardiovascular: normal rate Abdomen: soft, non tender Extremities: no edema Neurologic/Psychiatric: other - sleeping Laboratory Tests Test 07/22/17 06:10 White Blood Count 18.2 K/UL (4.8-10.8) H Red Blood Count 3.40 M/UL (4.20-5.40) L Hemoglobin 8.4 G/DL (12.0-16.0) L Hematocrit 26.6 % (37.0-47.0) L Mean Corpuscular Volume 78 FL (80-99) L Mean Corpuscular Hemoglobin 24.7 PG (27.0-31.0) L Mean Corpuscular Hemoglobin Concent 31.5 G/DL (32.0-36.0) L Red Cell Distribution Width 18.6 % (11.6-14.8) H Platelet Count 332 K/UL (150-450) Mean Platelet Volume 7.1 FL (6.5-10.1) Neutrophils (%) (Auto) % (45.0-75.0) Lymphocytes (%) (Auto) % (20.0-45.0) Monocytes (%) (Auto) % (1.0-10.0) Eosinophils (%) (Auto) % (0.0-3.0) Basophils (%) (Auto) % (0.0-2.0) Differential Total Cells Counted 100 Neutrophils % (Manual) 84 % (45-75) H Lymphocytes % (Manual) 8 % (20-45) L Monocytes % (Manual) 6 % (1-10) Eosinophils % (Manual) 0 % (0-3) Basophils % (Manual) 0 % (0-2) Band Neutrophils 2 % (0-8) Platelet Estimate Adequate Platelet Morphology Normal Polychromasia 1+ Hypochromasia 1+ Anisocytosis 1+ Microcytosis 1+ Sodium Level 138 MMOL/L (136-145) Potassium Level 3.9 MMOL/L (3.5-5.1) Chloride Level 104 MMOL/L (98-107) Carbon Dioxide Level 28 MMOL/L (21-32) Anion Gap 6 mmol/L (5-15) Blood Urea Nitrogen 8 mg/dL (7-18) Creatinine 0.9 MG/DL (0.55-1.30) Estimat Glomerular Filtration Rate mL/min (>60) Glucose Level 135 MG/DL (74-106) H Calcium Level 9.3 MG/DL (8.5-10.1) Current Medications Medications (Trade) Dose Ordered Sig/Ana Maria Route PRN Reason Start Time Stop Time Status Last Admin Dose Admin Acetaminophen (Tylenol) 650 mg Q4H PRN ORAL FEVER (temp>100.5F) 07/18/17 14:45 08/11/17 14:44 07/21/17 17:44 Amlodipine Besylate (Norvasc) 10 mg DAILY ORAL 07/19/17 09:00 08/12/17 08:59 07/22/17 08:37 Dextrose (Dextrose 50%) STAT PRN IV Hypoglycemia 07/18/17 13:30 08/11/17 13:29 Ferrous Sulfate (Feosol) 325 mg BIAC ORAL 07/20/17 16:30 08/19/17 16:29 07/22/17 06:44 Gabapentin (Neurontin) 300 mg BEDTIME ORAL 07/18/17 21:00 08/11/17 20:59 07/21/17 21:33 Glimepiride (Amaryl) 2 mg BEFORE BREAKFAST ORAL 07/19/17 06:30 08/12/17 06:29 07/22/17 06:43 Heparin Sodium (Porcine) (Heparin 5000 units/ml) 5,000 units EVERY 12 HOURS SUBQ 07/18/17 21:00 08/11/17 20:59 07/22/17 08:40 Insulin Aspart (NovoLOG) BEFORE MEALS AND HS SUBQ 07/18/17 16:30 08/11/17 17:29 07/22/17 11:44 Levofloxacin (Levaquin) 750 mg DAILY ORAL 07/21/17 09:00 07/28/17 08:59 07/22/17 08:36 Nebivolol (Bystolic) 10 mg DAILY ORAL 07/19/17 09:00 08/18/17 08:59 07/22/17 08:37 Ondansetron HCl (Zofran) 4 mg Q6H PRN IVP Nausea & Vomiting 07/18/17 13:30 08/11/17 13:29 Polyethylene Glycol (Miralax) 17 gm DAILYPRN PRN ORAL Constipation 07/18/17 13:30 08/11/17 13:29 Promethazine HCl/ Codeine (Phenergan with Codeine) 5 ml Q4H PRN ORAL For Cough 07/18/17 13:30 08/11/17 13:29 07/22/17 08:36 ARLENE BAEZ Jul 22, 2017 13:05
--- NOTE | 2017-07-22 14:17 | Nephrology Progress Note ---
Assessment/Plan Assessment 1.dulce 2.hypocalcemia 3.hyponatremia 4.pna Plan plan to continue iv antibiotic mix all ivp with ns.9 check vit d monitoring renal function avoid NSAID replace electrolyte as need it Subjective Constitutional: Reports: no symptoms HEENT: Reports: no symptoms Genitourinary: Reports: no symptoms Neurologic/Psychiatric: Reports: no symptoms Subjective alert and awake feeling better Objective Objective Last 24 Hour Vital Signs Date Time Temp Pulse Resp B/P (MAP) Pulse Ox O2 Delivery O2 Flow Rate FiO2 07/22/17 08:47 80 16 Nasal Cannula 2.0 28 07/22/17 08:47 92 Nasal Cannula 2.0 28 07/22/17 08:47 Nasal Cannula 2.0 28 07/22/17 08:37 83 144/66 07/22/17 08:00 98.4 83 18 144/66 91 Nasal Cannula 3.0 07/22/17 04:00 97.3 81 20 134/52 91 Nasal Cannula 3.0 07/22/17 00:31 97.3 75 20 157/77 90 07/21/17 20:17 97.5 73 20 145/70 93 07/21/17 20:00 97.5 73 20 143/70 93 Nasal Cannula 3.0 07/21/17 19:30 94 Nasal Cannula 2.0 28 07/21/17 19:30 84 20 Nasal Cannula 2.0 28 07/21/17 19:30 Nasal Cannula 2.0 28 07/21/17 16:38 98.2 82 20 131/70 Intake and Output 07/21/17 07/22/17 19:00 07:00 Intake Total 360 ml 480 ml Balance 360 ml 480 ml Intake Oral 360 ml 480 ml # Voids 4 # Bowel Movements 3 Laboratory Tests 07/22/17 06:10: White Blood Count 18.2H, Red Blood Count 3.40L, Hemoglobin 8.4L, Hematocrit 26.6L, Mean Corpuscular Volume 78L, Mean Corpuscular Hemoglobin 24.7L, Mean Corpuscular Hemoglobin Concent 31.5L, Red Cell Distribution Width 18.6H, Platelet Count 332, Mean Platelet Volume 7.1, Neutrophils (%) (Auto) , Lymphocytes (%) (Auto) , Monocytes (%) (Auto) , Eosinophils (%) (Auto) , Basophils (%) (Auto) , Differential Total Cells Counted 100, Neutrophils % ( Manual) 84H, Lymphocytes % (Manual) 8L, Monocytes % (Manual) 6, Eosinophils % ( Manual) 0, Basophils % (Manual) 0, Band Neutrophils 2, Platelet Estimate Adequate, Platelet Morphology Normal, Polychromasia 1+, Hypochromasia 1+, Anisocytosis 1+, Microcytosis 1+, Sodium Level 138, Potassium Level 3.9, Chloride Level 104, Carbon Dioxide Level 28, Anion Gap 6, Blood Urea Nitrogen 8 , Creatinine 0.9, Estimat Glomerular Filtration Rate , Glucose Level 135H, Calcium Level 9.3 Height (Feet): 5 Height (Inches): 0.00 Weight (Pounds): 205 Objective HEENT: Atraumatic and normocephalic. Anicteric. Pupils are equal, round, and reactive to light and accommodation. Periorbital edema is evident. NECK: JVP is less than 5 cm. No carotid bruit. Carotid upstrokes 2+ bilaterally. CARDIOVASCULAR: Normal S1 and S2. Regular rate and rhythm. Tachycardic. No murmurs, gallops, or rubs. LUNGS: Bilateral crackles, mostly in the basilar parts. ABDOMEN: Soft, nontender, and nondistended. No hepatosplenomegaly. Positive bowel sounds. EXTREMITIES: No evidence of edema, clubbing, or cyanosis. BLAIRE SANCHEZ Jul 22, 2017 14:17
--- NOTE | 2017-07-22 14:29 | Pulmonology Progress Note ---
Assessment/Plan Problems: (1) Acute hypoxemic respiratory failure (2) Sepsis (3) COPD (chronic obstructive pulmonary disease) (4) Community acquired pneumonia (5) Chronic liver disease Assessment/Plan cxr reviewed wbc lower today less tachycardic continue cefepime, vancomycin and Tamiflue respiratory treatment med/surg dc planning soon hem evaluation cxr in am Subjective ROS Limited/Unobtainable: No Constitutional: Reports: no symptoms HEENT: Repors: no symptoms Respiratory: Reports: no symptoms Allergies: Coded Allergies: No Known Allergies (Unverified , 06/17/12) Objective Last 24 Hour Vital Signs Date Time Temp Pulse Resp B/P (MAP) Pulse Ox O2 Delivery O2 Flow Rate FiO2 07/22/17 08:47 80 16 Nasal Cannula 2.0 28 07/22/17 08:47 92 Nasal Cannula 2.0 07/22/17 08:47 Nasal Cannula 2.0 28 07/22/17 08:37 83 144/66 07/22/17 08:00 98.4 83 18 144/66 91 Nasal Cannula 3.0 07/22/17 04:00 97.3 81 20 134/52 91 Nasal Cannula 3.0 07/22/17 00:31 97.3 75 20 157/77 90 07/21/17 20:17 97.5 73 20 145/70 93 07/21/17 20:00 97.5 73 20 143/70 93 Nasal Cannula 3.0 07/21/17 19:30 94 Nasal Cannula 2.0 28 07/21/17 19:30 84 20 Nasal Cannula 2.0 28 07/21/17 19:30 Nasal Cannula 2.0 28 07/21/17 16:38 98.2 82 20 131/70 Intake and Output 07/21/17 07/22/17 19:00 07:00 Intake Total 360 ml 480 ml Balance 360 ml 480 ml Intake Oral 360 ml 480 ml # Voids 4 # Bowel Movements 3 Objective General Appearance: WD/WN, no apparent distress Lines, tubes and drains: peripheral HEENT: normocephalic, atraumatic Neck: non-tender, normal alignment Respiratory/Chest: chest wall non-tender, lungs clear Cardiovascular/Chest: regular rhythm Abdomen: normal bowel sounds, non tender Extremities: normal range of motion, non-tender Skin Exam: normal pigmentation Neurologic: no motor/sensory deficits Laboratory Tests 07/22/17 06:10: White Blood Count 18.2H, Red Blood Count 3.40L, Hemoglobin 8.4L, Hematocrit 26.6L, Mean Corpuscular Volume 78L, Mean Corpuscular Hemoglobin 24.7L, Mean Corpuscular Hemoglobin Concent 31.5L, Red Cell Distribution Width 18.6H, Platelet Count 332, Mean Platelet Volume 7.1, Neutrophils (%) (Auto) , Lymphocytes (%) (Auto) , Monocytes (%) (Auto) , Eosinophils (%) (Auto) , Basophils (%) (Auto) , Differential Total Cells Counted 100, Neutrophils % ( Manual) 84H, Lymphocytes % (Manual) 8L, Monocytes % (Manual) 6, Eosinophils % ( Manual) 0, Basophils % (Manual) 0, Band Neutrophils 2, Platelet Estimate Adequate, Platelet Morphology Normal, Polychromasia 1+, Hypochromasia 1+, Anisocytosis 1+, Microcytosis 1+, Sodium Level 138, Potassium Level 3.9, Chloride Level 104, Carbon Dioxide Level 28, Anion Gap 6, Blood Urea Nitrogen 8 , Creatinine 0.9, Estimat Glomerular Filtration Rate , Glucose Level 135H, Calcium Level 9.3 Current Medications Medications (Trade) Dose Ordered Sig/Ana Maria Route PRN Reason Start Time Stop Time Status Last Admin Dose Admin Acetaminophen (Tylenol) 650 mg Q4H PRN ORAL FEVER (temp>100.5F) 07/18/17 14:45 08/11/17 14:44 07/21/17 17:44 Amlodipine Besylate (Norvasc) 10 mg DAILY ORAL 07/19/17 09:00 08/12/17 08:59 07/22/17 08:37 Dextrose (Dextrose 50%) STAT PRN IV Hypoglycemia 07/18/17 13:30 08/11/17 13:29 Ferrous Sulfate (Feosol) 325 mg BIAC ORAL 07/20/17 16:30 08/19/17 16:29 07/22/17 06:44 Gabapentin (Neurontin) 300 mg BEDTIME ORAL 07/18/17 21:00 08/11/17 20:59 07/21/17 21:33 Glimepiride (Amaryl) 2 mg BEFORE BREAKFAST ORAL 07/19/17 06:30 08/12/17 06:29 07/22/17 06:43 Heparin Sodium (Porcine) (Heparin 5000 units/ml) 5,000 units EVERY 12 HOURS SUBQ 07/18/17 21:00 08/11/17 20:59 07/22/17 08:40 Insulin Aspart (NovoLOG) BEFORE MEALS AND HS SUBQ 07/18/17 16:30 08/11/17 17:29 07/22/17 11:44 Levofloxacin (Levaquin) 750 mg DAILY ORAL 07/21/17 09:00 07/28/17 08:59 07/22/17 08:36 Nebivolol (Bystolic) 10 mg DAILY ORAL 07/19/17 09:00 08/18/17 08:59 07/22/17 08:37 Ondansetron HCl (Zofran) 4 mg Q6H PRN IVP Nausea & Vomiting 07/18/17 13:30 08/11/17 13:29 Polyethylene Glycol (Miralax) 17 gm DAILYPRN PRN ORAL Constipation 07/18/17 13:30 08/11/17 13:29 Promethazine HCl/ Codeine (Phenergan with Codeine) 5 ml Q4H PRN ORAL For Cough 07/18/17 13:30 08/11/17 13:29 07/22/17 08:36 KYMBERLY JURADO Jul 22, 2017 14:29
[2017-07-22] MEDS ORDERED: NS 500ML ONE (14:50)
[2017-07-22 16:00] VITALS: BP 123/36
[2017-07-22 20:00] VITALS: BP 129/53
--- NOTE | 2017-07-22 23:56 | Cardiology Progress Note ---
Assessment/Plan Assessment/Plan 1. Dyspnea, most likely due to community-acquired pneumonia, LVEF is at 65%. Continue IV ABx therapy, pulmonary toilet, nebulizer treatment. 2. Severe pulmonary HTN by echo, ? due to underlying COPD. 3. History of hypertension, well controlled, continue Bystolic. 4. History of diabetes mellitus. 5. ST due to hypoxemia/sepsis, continue Bystolic. Subjective Subjective Denies chest pain or SOB. No cardiac events reported. Not on the telemetry unit. Objective Last 24 Hour Vital Signs Date Time Temp Pulse Resp B/P (MAP) Pulse Ox O2 Delivery O2 Flow Rate FiO2 07/22/17 20:00 98.2 76 16 129/53 96 Nasal Cannula 3.0 07/22/17 16:00 98.2 72 20 123/36 90 Nasal Cannula 3.0 07/22/17 08:47 80 16 Nasal Cannula 2.0 28 07/22/17 08:47 92 Nasal Cannula 2.0 28 07/22/17 08:47 Nasal Cannula 2.0 28 07/22/17 08:37 83 144/66 07/22/17 08:00 98.4 83 18 144/66 91 Nasal Cannula 3.0 07/22/17 04:00 97.3 81 20 134/52 91 Nasal Cannula 3.0 07/22/17 00:31 97.3 75 20 157/77 90 Intake and Output 07/21/17 07/22/17 19:00 07:00 Intake Total 360 ml 480 ml Balance 360 ml 480 ml Intake Oral 360 ml 480 ml # Voids 4 # Bowel Movements 3 2D Echo: LVEF 65%, RVSP 60 mmHg, Mild MR, Grade I lVDD, Mild , NORMA at 1.5 cm2 Laboratory Tests Test 07/22/17 06:10 White Blood Count 18.2 K/UL (4.8-10.8) H Red Blood Count 3.40 M/UL (4.20-5.40) L Hemoglobin 8.4 G/DL (12.0-16.0) L Hematocrit 26.6 % (37.0-47.0) L Mean Corpuscular Volume 78 FL (80-99) L Mean Corpuscular Hemoglobin 24.7 PG (27.0-31.0) L Mean Corpuscular Hemoglobin Concent 31.5 G/DL (32.0-36.0) L Red Cell Distribution Width 18.6 % (11.6-14.8) H Platelet Count 332 K/UL (150-450) Mean Platelet Volume 7.1 FL (6.5-10.1) Neutrophils (%) (Auto) % (45.0-75.0) Lymphocytes (%) (Auto) % (20.0-45.0) Monocytes (%) (Auto) % (1.0-10.0) Eosinophils (%) (Auto) % (0.0-3.0) Basophils (%) (Auto) % (0.0-2.0) Differential Total Cells Counted 100 Neutrophils % (Manual) 84 % (45-75) H Lymphocytes % (Manual) 8 % (20-45) L Monocytes % (Manual) 6 % (1-10) Eosinophils % (Manual) 0 % (0-3) Basophils % (Manual) 0 % (0-2) Band Neutrophils 2 % (0-8) Platelet Estimate Adequate Platelet Morphology Normal Polychromasia 1+ Hypochromasia 1+ Anisocytosis 1+ Microcytosis 1+ Sodium Level 138 MMOL/L (136-145) Potassium Level 3.9 MMOL/L (3.5-5.1) Chloride Level 104 MMOL/L (98-107) Carbon Dioxide Level 28 MMOL/L (21-32) Anion Gap 6 mmol/L (5-15) Blood Urea Nitrogen 8 mg/dL (7-18) Creatinine 0.9 MG/DL (0.55-1.30) Estimat Glomerular Filtration Rate mL/min (>60) Glucose Level 135 MG/DL (74-106) H Calcium Level 9.3 MG/DL (8.5-10.1) Objective HEENT: Atraumatic and normocephalic. Anicteric. Pupils are equal, round, and reactive to light and accommodation. Periorbital edema is evident. NECK: JVP is less than 5 cm. No carotid bruit. Carotid upstrokes 2+ bilaterally. CARDIOVASCULAR: Normal S1 and S2. Regular rate and rhythm. 2/6 ESM at LSB, no gallops or rubs. LUNGS: Bilateral crackles, mostly in the basilar parts. ABDOMEN: Soft, nontender, and nondistended. No hepatosplenomegaly. Positive bowel sounds. EXTREMITIES: No evidence of edema, clubbing, or cyanosis. VY,MERNA Jul 22, 2017 23:56
[2017-07-23] VITALS: BP 125/58
[2017-07-23] MEDS: Promethazine/Codeine 5ml UD ORAL PRN (03:04)
[2017-07-23 04:00] VITALS: BP 128/52
[2017-07-23] MEDS: Glimepiride 1mg tab ORAL SCH (05:30)
[2017-07-23] MEDS: NovoLOG Insulin Flexpen SUBQ SCH ×2 (05:55→12:41)
[2017-07-23 07:53] LABS: BASOPHILS % (AUTO) 0.8 % (0.0-2.0); EOSINOPHILS % (AUTO) 2.5 % (0.0-3.0); HEMATOCRIT 27.9 % (37.0-47.0); HEMOGLOBIN 8.5 G/DL (12.0-16.0); LYMPHOCYTES % (AUTO) 16.2 % (20.0-45.0); MEAN CORPUSCULAR VOLUME 80 FL (80-99); MONOCYTES % (AUTO) 4.5 % (1.0-10.0); NEUTROPHILS % (AUTO) 76.1 % (45.0-75.0); PLATELET COUNT 337 K/UL (150-450); RED BLOOD COUNT 3.48 M/UL (4.20-5.40); RED CELL DISTRIBUTION WIDTH 21.7 % (11.6-14.8); WHITE BLOOD COUNT 16.7 K/UL (4.8-10.8)
--- NOTE | 2017-07-23 07:58 | General Progress Note ---
Assessment/Plan Problem List: (1) Community acquired pneumonia ICD Codes: J18.9 - Pneumonia, unspecified organism SNOMED: 553629366 (2) COPD exacerbation ICD Codes: J44.1 - Chronic obstructive pulmonary disease with (acute) exacerbation SNOMED: 057919233 (3) Acute hypoxemic respiratory failure ICD Codes: J96.01 - Acute respiratory failure with hypoxia SNOMED: 696709332 (4) Leukocytosis ICD Codes: D72.829 - Elevated white blood cell count, unspecified SNOMED: 443857261, 388616900 (5) Influenza-like illness ICD Codes: R69 - Illness, unspecified SNOMED: 84420935 (6) Cough ICD Codes: R05 - Cough SNOMED: 67945092 (7) Sepsis ICD Codes: A41.9 - Sepsis, unspecified organism SNOMED: 03603603 Qualifiers: Qualified Codes: A41.9 - Sepsis, unspecified organism (8) Pneumonia ICD Codes: J18.9 - Pneumonia SNOMED: 161809152 Status: unchanged Assessment/Plan o2 pulm tx abx ot pt diet cbc bmp am heme eval dc plan w hh Subjective Constitutional: Reports: weakness Respiratory: Reports: shortness of breath Allergies: Coded Allergies: No Known Allergies (Unverified , 06/17/12) All Systems: reviewed and negative except above Subjective sitting tired Objective Last 24 Hour Vital Signs Date Time Temp Pulse Resp B/P (MAP) Pulse Ox O2 Delivery O2 Flow Rate FiO2 07/23/17 04:00 97.9 73 20 128/52 90 Nasal Cannula 3.0 07/23/17 00:00 98.0 75 18 125/58 94 Nasal Cannula 3.0 07/22/17 20:00 98.2 76 16 129/53 96 Nasal Cannula 3.0 07/22/17 19:26 94 Nasal Cannula 2.0 28 07/22/17 19:26 Nasal Cannula 2.0 28 07/22/17 16:00 98.2 72 20 123/36 90 Nasal Cannula 3.0 07/22/17 08:47 80 16 Nasal Cannula 2.0 28 07/22/17 08:47 92 Nasal Cannula 2.0 28 07/22/17 08:47 Nasal Cannula 2.0 28 07/22/17 08:37 83 144/66 07/22/17 08:00 98.4 83 18 144/66 91 Nasal Cannula 3.0 Intake and Output 07/22/17 07/23/17 19:00 07:00 Intake Total 240 ml Balance 240 ml Intake Oral 240 ml # Voids 2 Laboratory Tests 07/23/17 06:15: White Blood Count [Pending], Red Blood Count [Pending], Hemoglobin [Pending], Hematocrit [Pending], Mean Corpuscular Volume [Pending], Mean Corpuscular Hemoglobin [Pending], Mean Corpuscular Hemoglobin Concent [Pending], Red Cell Distribution Width [Pending], Platelet Count [Pending], Mean Platelet Volume [ Pending], Neutrophils (%) (Auto) [Pending], Lymphocytes (%) (Auto) [Pending], Monocytes (%) (Auto) [Pending], Eosinophils (%) (Auto) [Pending], Basophils (%) (Auto) [Pending], Sodium Level [Pending], Potassium Level [Pending], Chloride Level [Pending], Carbon Dioxide Level [Pending], Blood Urea Nitrogen [Pending], Creatinine [Pending], Estimat Glomerular Filtration Rate [Pending], Glucose Level [Pending], Calcium Level [Pending], Total Bilirubin [Pending], Aspartate Amino Transf (AST/SGOT) [Pending], Alanine Aminotransferase (ALT/SGPT) [Pending] , Alkaline Phosphatase [Pending], Pro-B-Type Natriuretic Peptide [Pending], Total Protein [Pending], Albumin [Pending], Globulin [Pending] Height (Feet): 5 Height (Inches): 0.00 Weight (Pounds): 205 General Appearance: lethargic EENT: normal ENT inspection Neck: normal alignment Cardiovascular: normal peripheral pulses, normal rate, regular rhythm Respiratory/Chest: decreased breath sounds Abdomen: normal bowel sounds, non tender, soft Extremities: normal inspection Edema: no edema noted Arm (L), no edema noted Arm (R), no edema noted Leg (L), no edema noted Leg (R), no edema noted Pedal (L), no edema noted Pedal (R), no edema noted Generalized Neurologic: responsive, motor weakness Skin: normal pigmentation, warm/dry QAMAR WALLACE Jul 23, 2017 07:58
[2017-07-23 08:00] VITALS: BP 119/56
--- NOTE | 2017-07-23 08:00 | Consultation ---
DATE OF CONSULTATION: 07/20/2017 HEMATOLOGY ONCOLOGY CONSULTATION CONSULTING PHYSICIAN: Chidi Yanez M.D. REFERRING PHYSICIAN: Jai Siddiqi D.O. REASON FOR CONSULTATION: Evaluation of anemia of chronic disease and iron deficiency. IDENTIFICATION DATA: Dear Dr. Jai Siddiqi. The patient is a pleasant 72-year-old female with past medical history significant for hypertension, diabetes mellitus, osteoarthritis, diabetic neuropathy, dyslipidemia, at this time presents to the ER of [facility] complaining of productive cough, 00:51 chills. Upon arrival to the ER, chest x-ray completed. 00:55 anemia versus pneumonia. The patient was subsequently admitted to the telemetry unit. Infectious Disease has been consulted as well as Hematology for further evaluation and treatment. The patient remains anemic. PAST MEDICAL HISTORY: Dyslipidemia, diabetic neuropathy, osteoporosis, diabetes mellitus, and hypertension. PAST SURGICAL HISTORY: None noted. MEDICATIONS: Albuterol, amlodipine, amoxicillin, atorvastatin, promethazine, gabapentin, glimepiride, Stephen, ibuprofen, insulin, Levaquin, hydralazine, nitro, temazepam, theophylline. ALLERGIES: No known drug allergies. SOCIAL HISTORY: No alcohol, tobacco, or illicit drug use. FAMILY HISTORY: Noncontributory. PHYSICAL EXAMINATION: GENERAL: No acute distress. VITAL SIGNS: Reviewed. PULMONARY: Decreased breath sounds. CARDIOVASCULAR: Regular rate. No S3 and S4. ABDOMEN: Soft, nontender, and nondistended. EXTREMITIES: A 1+ edema. LABORATORY DATA: BUN 21 and creatinine 1.2. AST of 26, ALT of 20. Total protein 8.7. Albumin of 3. WBC of 32,000, currently improved; hemoglobin of 8.9; platelet count of 407,000. IMAGING: Chest x-ray, no significant change from 02:04. ASSESSMENT AND RECOMMENDATIONS: 1. Anemia, secondary to chronic disease. Transfusion of blood if hemoglobin less than 7. 2. Anemia secondary to iron insufficiency. Begin the patient on iron supplementation. 3. Leukocytosis, secondary to sepsis. 4. Acute kidney disease, currently improving. Continue fluids. Monitor renal functions. 5. Pneumonia, on antibiotics. 6. 02:33, closely monitor. 02:38 the patient's albumin. 7. Tachycardia, currently improving. 8. Sepsis. WBC is coming down. I appreciate the consultation. Chidi Yanez M.D. DR: Mihir JOB#: [id number] CC:
[2017-07-23] MEDS: Heparin 5000 units/ml inj SUBQ SCH (08:21)
[2017-07-23 08:33] LABS: ALANINE AMINOTRANSFERASE 47 U/L (12-78); ALBUMIN 2.6 G/DL (3.4-5.0); ALBUMIN/GLOBULIN RATIO 0.5 (1.0-2.7); ALKALINE PHOSPHATASE 90 U/L (46-116); ANION GAP 9 mmol/L (5-15); ASPARTATE AMINO TRANSFERASE 32 U/L (15-37); BILIRUBIN,TOTAL 0.2 MG/DL (0.2-1.0); BLOOD UREA NITROGEN 11 mg/dL (7-18); CALCIUM 9.2 MG/DL (8.5-10.1); CARBON DIOXIDE 26 MMOL/L (21-32); CHLORIDE 104 MMOL/L (98-107); POTASSIUM 4.3 MMOL/L (3.5-5.1); SODIUM 139 MMOL/L (136-145)
--- NOTE | 2017-07-23 10:09 | Diagnostic Imaging Report ---
Indication: Dyspnea Technique: XRAY Chest 1v Comparison: 07/20/2017 Findings: Heart size and mediastinal contours are stable. There is interval worsening of interstitial opacification/edema with development of patchy right perihilar airspace opacities. There is persistent patchy left basilar atelectasis/consolidation. Question of trace bilateral pleural effusions. No definite pneumothorax. Impression: Worsening of interstitial opacification/edema with development of patchy airspace opacities. Findings likely related to worsening CHF. Superimposed pneumonia not excluded. Clinical correlation and follow-up exam recommended.
[2017-07-23 12:00] VITALS: BP 110/60
--- NOTE | 2017-07-23 12:28 | Nephrology Progress Note ---
Assessment/Plan Assessment 1.dulce 2.hypocalcemia 3.hyponatremia 4.pna Plan plan to continue iv antibiotic mix all ivp with ns.9 check vit d monitoring renal function avoid NSAID replace electrolyte as need it Subjective Constitutional: Reports: no symptoms HEENT: Reports: no symptoms Genitourinary: Reports: no symptoms Neurologic/Psychiatric: Reports: no symptoms Subjective alert and awake feeling better Objective Objective Last 24 Hour Vital Signs Date Time Temp Pulse Resp B/P (MAP) Pulse Ox O2 Delivery O2 Flow Rate FiO2 07/23/17 08:17 79 119/56 07/23/17 08:00 97.8 79 18 119/56 90 Nasal Cannula 3.0 07/23/17 04:00 97.9 73 20 128/52 90 Nasal Cannula 3.0 07/23/17 00:00 98.0 75 18 125/58 94 Nasal Cannula 3.0 07/22/17 20:00 98.2 76 16 129/53 96 Nasal Cannula 3.0 07/22/17 19:26 94 Nasal Cannula 2.0 28 07/22/17 19:26 Nasal Cannula 2.0 28 07/22/17 16:00 98.2 72 20 123/36 90 Nasal Cannula 3.0 Intake and Output 07/22/17 07/23/17 19:00 07:00 Intake Total 240 ml Balance 240 ml Intake Oral 240 ml # Voids 2 Laboratory Tests 07/23/17 06:15: White Blood Count 16.7H, Red Blood Count 3.48L, Hemoglobin 8.5L, Hematocrit 27.9L, Mean Corpuscular Volume 80, Mean Corpuscular Hemoglobin 24.5L, Mean Corpuscular Hemoglobin Concent 30.5L, Red Cell Distribution Width 21.7H, Platelet Count 337, Mean Platelet Volume 6.7, Neutrophils (%) (Auto) 76.1H, Lymphocytes (%) (Auto) 16.2L, Monocytes (%) (Auto) 4.5, Eosinophils (%) (Auto) 2.5, Basophils (%) (Auto) 0.8, Sodium Level 139, Potassium Level 4.3, Chloride Level 104, Carbon Dioxide Level 26, Anion Gap 9, Blood Urea Nitrogen 11, Creatinine 1.0, Estimat Glomerular Filtration Rate , Glucose Level 126H, Calcium Level 9.2, Total Bilirubin 0.2, Aspartate Amino Transf (AST/SGOT) 32, Alanine Aminotransferase (ALT/SGPT) 47, Alkaline Phosphatase 90, Pro-B-Type Natriuretic Peptide 538H, Total Protein 8.1, Albumin 2.6L, Globulin 5.5, Albumin /Globulin Ratio 0.5L Height (Feet): 5 Height (Inches): 0.00 Weight (Pounds): 205 Objective HEENT: Atraumatic and normocephalic. Anicteric. Pupils are equal, round, and reactive to light and accommodation. Periorbital edema is evident. NECK: JVP is less than 5 cm. No carotid bruit. Carotid upstrokes 2+ bilaterally. CARDIOVASCULAR: Normal S1 and S2. Regular rate and rhythm. Tachycardic. No murmurs, gallops, or rubs. LUNGS: Bilateral crackles, mostly in the basilar parts. ABDOMEN: Soft, nontender, and nondistended. No hepatosplenomegaly. Positive bowel sounds. EXTREMITIES: No evidence of edema, clubbing, or cyanosis. BLAIRE SANCHEZ Jul 23, 2017 12:28
--- NOTE | 2017-07-23 13:00 | Pulmonology Progress Note ---
Assessment/Plan Problems: (1) Acute hypoxemic respiratory failure (2) Sepsis (3) COPD (chronic obstructive pulmonary disease) (4) Community acquired pneumonia (5) Chronic liver disease Assessment/Plan doing better, wbc lower today slightly less tachycardic respiratory treatment med/surg hem evaluation Subjective ROS Limited/Unobtainable: No Allergies: Coded Allergies: No Known Allergies (Unverified , 06/17/12) Objective Last 24 Hour Vital Signs Date Time Temp Pulse Resp B/P (MAP) Pulse Ox O2 Delivery O2 Flow Rate FiO2 07/23/17 12:00 98.0 77 18 110/60 93 Nasal Cannula 3.0 07/23/17 08:17 79 119/56 07/23/17 08:00 97.8 79 18 119/56 90 Nasal Cannula 3.0 07/23/17 04:00 97.9 73 20 128/52 90 Nasal Cannula 3.0 07/23/17 00:00 98.0 75 18 125/58 94 Nasal Cannula 3.0 07/22/17 20:00 98.2 76 16 129/53 96 Nasal Cannula 3.0 07/22/17 19:26 94 Nasal Cannula 2.0 28 07/22/17 19:26 Nasal Cannula 2.0 28 07/22/17 16:00 98.2 72 20 123/36 90 Nasal Cannula 3.0 Intake and Output 07/22/17 07/23/17 19:00 07:00 Intake Total 240 ml Balance 240 ml Intake Oral 240 ml # Voids 2 Objective General Appearance: WD/WN, no apparent distress Lines, tubes and drains: peripheral HEENT: normocephalic, atraumatic Neck: non-tender, normal alignment Respiratory/Chest: chest wall non-tender, lungs clear Cardiovascular/Chest: regular rhythm Abdomen: normal bowel sounds, non tender Extremities: normal range of motion, non-tender Skin Exam: normal pigmentation Neurologic: no motor/sensory deficits Laboratory Tests 07/23/17 06:15: White Blood Count 16.7H, Red Blood Count 3.48L, Hemoglobin 8.5L, Hematocrit 27.9L, Mean Corpuscular Volume 80, Mean Corpuscular Hemoglobin 24.5L, Mean Corpuscular Hemoglobin Concent 30.5L, Red Cell Distribution Width 21.7H, Platelet Count 337, Mean Platelet Volume 6.7, Neutrophils (%) (Auto) 76.1H, Lymphocytes (%) (Auto) 16.2L, Monocytes (%) (Auto) 4.5, Eosinophils (%) (Auto) 2.5, Basophils (%) (Auto) 0.8, Sodium Level 139, Potassium Level 4.3, Chloride Level 104, Carbon Dioxide Level 26, Anion Gap 9, Blood Urea Nitrogen 11, Creatinine 1.0, Estimat Glomerular Filtration Rate , Glucose Level 126H, Calcium Level 9.2, Total Bilirubin 0.2, Aspartate Amino Transf (AST/SGOT) 32, Alanine Aminotransferase (ALT/SGPT) 47, Alkaline Phosphatase 90, Pro-B-Type Natriuretic Peptide 538H, Total Protein 8.1, Albumin 2.6L, Globulin 5.5, Albumin /Globulin Ratio 0.5L Current Medications Medications (Trade) Dose Ordered Sig/Ana Maria Route PRN Reason Start Time Stop Time Status Last Admin Dose Admin Acetaminophen (Tylenol) 650 mg Q4H PRN ORAL FEVER (temp>100.5F) 07/18/17 14:45 08/11/17 14:44 07/21/17 17:44 Amlodipine Besylate (Norvasc) 10 mg DAILY ORAL 07/19/17 09:00 08/12/17 08:59 07/23/17 08:17 Dextrose (Dextrose 50%) STAT PRN IV Hypoglycemia 07/18/17 13:30 08/11/17 13:29 Ferrous Sulfate (Feosol) 325 mg BIAC ORAL 07/20/17 16:30 08/19/17 16:29 07/23/17 05:30 Gabapentin (Neurontin) 300 mg BEDTIME ORAL 07/18/17 21:00 08/11/17 20:59 07/22/17 21:35 Glimepiride (Amaryl) 2 mg BEFORE BREAKFAST ORAL 07/19/17 06:30 08/12/17 06:29 07/23/17 05:30 Heparin Sodium (Porcine) (Heparin 5000 units/ml) 5,000 units EVERY 12 HOURS SUBQ 07/18/17 21:00 08/11/17 20:59 07/23/17 08:21 Insulin Aspart (NovoLOG) BEFORE MEALS AND HS SUBQ 07/18/17 16:30 08/11/17 17:29 07/23/17 12:41 Levofloxacin (Levaquin) 750 mg DAILY ORAL 07/21/17 09:00 07/28/17 08:59 07/23/17 08:18 Nebivolol (Bystolic) 10 mg DAILY ORAL 07/19/17 09:00 08/18/17 08:59 07/23/17 08:17 Ondansetron HCl (Zofran) 4 mg Q6H PRN IVP Nausea & Vomiting 07/18/17 13:30 08/11/17 13:29 Polyethylene Glycol (Miralax) 17 gm DAILYPRN PRN ORAL Constipation 07/18/17 13:30 08/11/17 13:29 Promethazine HCl/ Codeine (Phenergan with Codeine) 5 ml Q4H PRN ORAL For Cough 07/18/17 13:30 08/11/17 13:29 07/23/17 03:04 KYMBERLY JURADO Jul 23, 2017 13:00
--- NOTE | 2017-07-23 23:58 | Cardiology Progress Note ---
Assessment/Plan Assessment/Plan 1. Dyspnea, most likely due to community-acquired pneumonia, LVEF is at 65%. Continue IV ABx therapy, pulmonary toilet, nebulizer treatment. 2. Severe pulmonary HTN by echo, ? due to underlying COPD, ? aortic stenosis ( mild). 3. History of hypertension, well controlled, continue Bystolic. 4. History of diabetes mellitus. 5. Sinus tachycardia, resolved,due to hypoxemia/sepsis, continue Bystolic. Subjective Subjective Denies chest pain or SOB. No cardiac events reported. Clinically the same. Objective Last 24 Hour Vital Signs Date Time Temp Pulse Resp B/P (MAP) Pulse Ox O2 Delivery O2 Flow Rate FiO2 07/23/17 12:00 98.0 77 18 110/60 93 Nasal Cannula 3.0 07/23/17 08:17 79 119/56 07/23/17 08:00 97.8 79 18 119/56 90 Nasal Cannula 3.0 07/23/17 04:00 97.9 73 20 128/52 90 Nasal Cannula 3.0 07/23/17 00:00 98.0 75 18 125/58 94 Nasal Cannula 3.0 Intake and Output 07/22/17 07/23/17 19:00 07:00 Intake Total 240 ml Balance 240 ml Intake Oral 240 ml # Voids 2 2D Echo: LVEF 65%, RVSP 60 mmHg, Mild MR, Grade I lVDD, Mild , NORMA at 1.5 cm2 Laboratory Tests Test 07/23/17 06:15 White Blood Count 16.7 K/UL (4.8-10.8) H Red Blood Count 3.48 M/UL (4.20-5.40) L Hemoglobin 8.5 G/DL (12.0-16.0) L Hematocrit 27.9 % (37.0-47.0) L Mean Corpuscular Volume 80 FL (80-99) Mean Corpuscular Hemoglobin 24.5 PG (27.0-31.0) L Mean Corpuscular Hemoglobin Concent 30.5 G/DL (32.0-36.0) L Red Cell Distribution Width 21.7 % (11.6-14.8) H Platelet Count 337 K/UL (150-450) Mean Platelet Volume 6.7 FL (6.5-10.1) Neutrophils (%) (Auto) 76.1 % (45.0-75.0) H Lymphocytes (%) (Auto) 16.2 % (20.0-45.0) L Monocytes (%) (Auto) 4.5 % (1.0-10.0) Eosinophils (%) (Auto) 2.5 % (0.0-3.0) Basophils (%) (Auto) 0.8 % (0.0-2.0) Sodium Level 139 MMOL/L (136-145) Potassium Level 4.3 MMOL/L (3.5-5.1) Chloride Level 104 MMOL/L (98-107) Carbon Dioxide Level 26 MMOL/L (21-32) Anion Gap 9 mmol/L (5-15) Blood Urea Nitrogen 11 mg/dL (7-18) Creatinine 1.0 MG/DL (0.55-1.30) Estimat Glomerular Filtration Rate mL/min (>60) Glucose Level 126 MG/DL (74-106) H Calcium Level 9.2 MG/DL (8.5-10.1) Total Bilirubin 0.2 MG/DL (0.2-1.0) Aspartate Amino Transf (AST/SGOT) 32 U/L (15-37) Alanine Aminotransferase (ALT/SGPT) 47 U/L (12-78) Alkaline Phosphatase 90 U/L (46-116) Pro-B-Type Natriuretic Peptide 538 pg/mL (0-125) H Total Protein 8.1 G/DL (6.4-8.2) Albumin 2.6 G/DL (3.4-5.0) L Globulin 5.5 g/dL Albumin/Globulin Ratio 0.5 (1.0-2.7) L Objective HEENT: Atraumatic and normocephalic. Anicteric. Pupils are equal, round, and reactive to light and accommodation. Periorbital edema is evident. NECK: JVP is less than 5 cm. No carotid bruit. Carotid upstrokes 2+ bilaterally. CARDIOVASCULAR: Normal S1 and S2. Regular rate and rhythm. 2/6 ESM at LSB, no gallops or rubs. LUNGS: Bilateral crackles, mostly in the basilar parts. ABDOMEN: Soft, nontender, and nondistended. No hepatosplenomegaly. Positive bowel sounds. EXTREMITIES: No evidence of edema, clubbing, or cyanosis. MERNA MCCLELLAN Jul 23, 2017 23:58
--- NOTE | 2017-07-24 02:12 | General Progress Note ---
Assessment/Plan Status: stable Assessment/Plan # Anemia of iron deficiency --> begin on ferrous sulfate --> consider gi eval in setting of KEENAN --> Monitor cbc daily. # Leukocytosis likely related to sepsis/infection - on abx --> Monitor cbc, improving # Bradycardia - monitor closely --> HR has been normal # COPD # Chronic liver disease Subjective Date patient seen: Jul 21, 2017 Constitutional: Denies: no symptoms, chills, diaphoresis, fever, malaise, weakness, other HEENT: Denies: no symptoms, eye pain, blurred vision, tearing, double vision, ear pain, ear discharge, nose pain, nose congestion, throat pain, throat swelling, mouth pain, mouth swelling, other Cardiovascular: Denies: no symptoms, chest pain, edema, irregular heart rate, lightheadedness, palpitations, syncope, other Respiratory: Denies: no symptoms, cough, orthopnea, shortness of breath, SOB with excertion, SOB at rest, sputum, stridor, wheezing, other Gastrointestinal/Abdominal: Denies: no symptoms, abdomen distended, abdominal pain, black stools, tarry stools, blood in stool, constipated, diarrhea, difficulty swallowing, nausea, poor appetite, poor fluid intake, rectal bleeding , vomiting, other Genitourinary: Denies: no symptoms, burning, discharge, frequency, flank pain, hematuria, incontinence, pain, urgency, other Allergies: Coded Allergies: No Known Allergies (Unverified , 06/17/12) Subjective Leukocytosis. On abx. No major events. Objective VS - Last 72 Hours, by Label Date Time Temp Pulse Resp B/P (MAP) Pulse Ox O2 Delivery O2 Flow Rate FiO2 07/23/17 12:00 98.0 77 18 110/60 93 Nasal Cannula 3.0 07/23/17 08:17 79 119/56 07/23/17 08:00 97.8 79 18 119/56 90 Nasal Cannula 3.0 07/23/17 04:00 97.9 73 20 128/52 90 Nasal Cannula 3.0 07/23/17 00:00 98.0 75 18 125/58 94 Nasal Cannula 3.0 07/22/17 20:00 98.2 76 16 129/53 96 Nasal Cannula 3.0 07/22/17 19:26 94 Nasal Cannula 2.0 28 07/22/17 19:26 Nasal Cannula 2.0 28 07/22/17 16:00 98.2 72 20 123/36 90 Nasal Cannula 3.0 07/22/17 08:47 80 16 Nasal Cannula 2.0 28 07/22/17 08:47 92 Nasal Cannula 2.0 28 07/22/17 08:47 Nasal Cannula 2.0 28 07/22/17 08:37 83 144/66 07/22/17 08:00 98.4 83 18 144/66 91 Nasal Cannula 3.0 07/22/17 04:00 97.3 81 20 134/52 91 Nasal Cannula 3.0 07/22/17 00:31 97.3 75 20 157/77 90 07/21/17 20:17 97.5 73 20 145/70 93 07/21/17 20:00 97.5 73 20 143/70 93 Nasal Cannula 3.0 07/21/17 19:30 94 Nasal Cannula 2.0 28 07/21/17 19:30 84 20 Nasal Cannula 2.0 28 07/21/17 19:30 Nasal Cannula 2.0 28 07/21/17 16:38 98.2 82 20 131/70 07/21/17 08:59 92 139/58 07/21/17 08:00 97.9 92 20 139/58 92 Nasal Cannula 3.0 07/21/17 07:50 Nasal Cannula 2.0 28 07/21/17 07:50 82 20 Nasal Cannula 2.0 28 07/21/17 07:50 95 Nasal Cannula 2.0 28 07/21/17 04:00 97.5 75 21 141/56 90 Nasal Cannula 2.0 Last 24 Hour Vital Signs Date Time Temp Pulse Resp B/P (MAP) Pulse Ox O2 Delivery O2 Flow Rate FiO2 07/23/17 12:00 98.0 77 18 110/60 93 Nasal Cannula 3.0 07/23/17 08:17 79 119/56 07/23/17 08:00 97.8 79 18 119/56 90 Nasal Cannula 3.0 07/23/17 04:00 97.9 73 20 128/52 90 Nasal Cannula 3.0 Labs Test 07/21/17 04:35 07/22/17 06:10 07/23/17 06:15 White Blood Count 22.6 K/UL (4.8-10.8) 18.2 K/UL (4.8-10.8) 16.7 K/UL (4.8-10.8) Red Blood Count 3.62 M/UL (4.20-5.40) 3.40 M/UL (4.20-5.40) 3.48 M/UL (4.20-5.40) Hemoglobin 8.8 G/DL (12.0-16.0) 8.4 G/DL (12.0-16.0) 8.5 G/DL (12.0-16.0) Hematocrit 28.2 % (37.0-47.0) 26.6 % (37.0-47.0) 27.9 % (37.0-47.0) Mean Corpuscular Volume 78 FL (80-99) 78 FL (80-99) 80 FL (80-99) Mean Corpuscular Hemoglobin 24.4 PG (27.0-31.0) 24.7 PG (27.0-31.0) 24.5 PG (27.0-31.0) Mean Corpuscular Hemoglobin Concent 31.2 G/DL (32.0-36.0) 31.5 G/DL (32.0-36.0) 30.5 G/DL (32.0-36.0) Red Cell Distribution Width 18.4 % (11.6-14.8) 18.6 % (11.6-14.8) 21.7 % (11.6-14.8) Platelet Count 355 K/UL (150-450) 332 K/UL (150-450) 337 K/UL (150-450) Mean Platelet Volume 6.1 FL (6.5-10.1) 7.1 FL (6.5-10.1) 6.7 FL (6.5-10.1) Neutrophils (%) (Auto) % (45.0-75.0) % (45.0-75.0) 76.1 % (45.0-75.0) Lymphocytes (%) (Auto) % (20.0-45.0) % (20.0-45.0) 16.2 % (20.0-45.0) Monocytes (%) (Auto) % (1.0-10.0) % (1.0-10.0) 4.5 % (1.0-10.0) Eosinophils (%) (Auto) % (0.0-3.0) % (0.0-3.0) 2.5 % (0.0-3.0) Basophils (%) (Auto) % (0.0-2.0) % (0.0-2.0) 0.8 % (0.0-2.0) Differential Total Cells Counted 100 100 Neutrophils % (Manual) 82 % (45-75) 84 % (45-75) Lymphocytes % (Manual) 14 % (20-45) 8 % (20-45) Monocytes % (Manual) 2 % (1-10) 6 % (1-10) Eosinophils % (Manual) 2 % (0-3) 0 % (0-3) Basophils % (Manual) 0 % (0-2) 0 % (0-2) Band Neutrophils 0 % (0-8) 2 % (0-8) Platelet Estimate Adequate Adequate Platelet Morphology Normal Normal Hypochromasia 1+ 1+ Anisocytosis 1+ 1+ Microcytosis 1+ 1+ Sodium Level 137 MMOL/L (136-145) 138 MMOL/L (136-145) 139 MMOL/L (136-145) Potassium Level 4.4 MMOL/L (3.5-5.1) 3.9 MMOL/L (3.5-5.1) 4.3 MMOL/L (3.5-5.1) Chloride Level 104 MMOL/L (98-107) 104 MMOL/L (98-107) 104 MMOL/L (98-107) Carbon Dioxide Level 27 MMOL/L (21-32) 28 MMOL/L (21-32) 26 MMOL/L (21-32) Anion Gap 7 mmol/L (5-15) 6 mmol/L (5-15) 9 mmol/L (5-15) Blood Urea Nitrogen 10 mg/dL (7-18) 8 mg/dL (7-18) 11 mg/dL (7-18) Creatinine 0.9 MG/DL (0.55-1.30) 0.9 MG/DL (0.55-1.30) 1.0 MG/DL (0.55-1.30) Estimat Glomerular Filtration Rate mL/min (>60) mL/min (>60) mL/min (>60) Glucose Level 132 MG/DL (74-106) 135 MG/DL (74-106) 126 MG/DL (74-106) Calcium Level 9.3 MG/DL (8.5-10.1) 9.3 MG/DL (8.5-10.1) 9.2 MG/DL (8.5-10.1) Polychromasia 1+ Total Bilirubin 0.2 MG/DL (0.2-1.0) Aspartate Amino Transf (AST/SGOT) 32 U/L (15-37) Alanine Aminotransferase (ALT/SGPT) 47 U/L (12-78) Alkaline Phosphatase 90 U/L (46-116) Pro-B-Type Natriuretic Peptide 538 pg/mL (0-125) Total Protein 8.1 G/DL (6.4-8.2) Albumin 2.6 G/DL (3.4-5.0) Globulin 5.5 g/dL Albumin/Globulin Ratio 0.5 (1.0-2.7) Laboratory Tests 07/23/17 06:15: White Blood Count 16.7H, Red Blood Count 3.48L, Hemoglobin 8.5L, Hematocrit 27.9L, Mean Corpuscular Volume 80, Mean Corpuscular Hemoglobin 24.5L, Mean Corpuscular Hemoglobin Concent 30.5L, Red Cell Distribution Width 21.7H, Platelet Count 337, Mean Platelet Volume 6.7, Neutrophils (%) (Auto) 76.1H, Lymphocytes (%) (Auto) 16.2L, Monocytes (%) (Auto) 4.5, Eosinophils (%) (Auto) 2.5, Basophils (%) (Auto) 0.8, Sodium Level 139, Potassium Level 4.3, Chloride Level 104, Carbon Dioxide Level 26, Anion Gap 9, Blood Urea Nitrogen 11, Creatinine 1.0, Estimat Glomerular Filtration Rate , Glucose Level 126H, Calcium Level 9.2, Total Bilirubin 0.2, Aspartate Amino Transf (AST/SGOT) 32, Alanine Aminotransferase (ALT/SGPT) 47, Alkaline Phosphatase 90, Pro-B-Type Natriuretic Peptide 538H, Total Protein 8.1, Albumin 2.6L, Globulin 5.5, Albumin /Globulin Ratio 0.5L Height (Feet): 5 Height (Inches): 0.00 Weight (Pounds): 205 General Appearance: no apparent distress Chidi Yanez Jul 24, 2017 02:12
--- NOTE | 2017-07-24 23:17 | General Progress Note ---
Assessment/Plan Status: stable Assessment/Plan # Anemia of iron deficiency --> begin on ferrous sulfate --> consider gi eval in setting of KEENAN --> Monitor cbc daily. # Leukocytosis likely related to sepsis/infection - on abx --> Monitor cbc --> Has been improving. # Bradycardia - monitor closely --> HR has been normal # COPD # Chronic liver disease Subjective Date patient seen: Jul 23, 2017 Constitutional: Denies: no symptoms, chills, diaphoresis, fever, malaise, weakness, other HEENT: Denies: no symptoms, eye pain, blurred vision, tearing, double vision, ear pain, ear discharge, nose pain, nose congestion, throat pain, throat swelling, mouth pain, mouth swelling, other Cardiovascular: Denies: no symptoms, chest pain, edema, irregular heart rate, lightheadedness, palpitations, syncope, other Respiratory: Denies: no symptoms, cough, orthopnea, shortness of breath, SOB with excertion, SOB at rest, sputum, stridor, wheezing, other Gastrointestinal/Abdominal: Denies: no symptoms, abdomen distended, abdominal pain, black stools, tarry stools, blood in stool, constipated, diarrhea, difficulty swallowing, nausea, poor appetite, poor fluid intake, rectal bleeding , vomiting, other Genitourinary: Denies: no symptoms, burning, discharge, frequency, flank pain, hematuria, incontinence, pain, urgency, other Allergies: Coded Allergies: No Known Allergies (Unverified , 06/17/12) Subjective On antibiotics. No fever or chills. Pending discharge. Objective VS - Last 72 Hours, by Label Date Time Temp Pulse Resp B/P (MAP) Pulse Ox O2 Delivery O2 Flow Rate FiO2 07/23/17 12:00 98.0 77 18 110/60 93 Nasal Cannula 3.0 07/23/17 08:17 79 119/56 07/23/17 08:00 97.8 79 18 119/56 90 Nasal Cannula 3.0 07/23/17 04:00 97.9 73 20 128/52 90 Nasal Cannula 3.0 07/23/17 00:00 98.0 75 18 125/58 94 Nasal Cannula 3.0 07/22/17 20:00 98.2 76 16 129/53 96 Nasal Cannula 3.0 07/22/17 19:26 94 Nasal Cannula 2.0 28 07/22/17 19:26 Nasal Cannula 2.0 28 07/22/17 16:00 98.2 72 20 123/36 90 Nasal Cannula 3.0 07/22/17 08:47 80 16 Nasal Cannula 2.0 28 07/22/17 08:47 92 Nasal Cannula 2.0 28 07/22/17 08:47 Nasal Cannula 2.0 28 07/22/17 08:37 83 144/66 07/22/17 08:00 98.4 83 18 144/66 91 Nasal Cannula 3.0 07/22/17 04:00 97.3 81 20 134/52 91 Nasal Cannula 3.0 07/22/17 00:31 97.3 75 20 157/77 90 Labs Test 07/22/17 06:10 07/23/17 06:15 White Blood Count 18.2 K/UL (4.8-10.8) 16.7 K/UL (4.8-10.8) Red Blood Count 3.40 M/UL (4.20-5.40) 3.48 M/UL (4.20-5.40) Hemoglobin 8.4 G/DL (12.0-16.0) 8.5 G/DL (12.0-16.0) Hematocrit 26.6 % (37.0-47.0) 27.9 % (37.0-47.0) Mean Corpuscular Volume 78 FL (80-99) 80 FL (80-99) Mean Corpuscular Hemoglobin 24.7 PG (27.0-31.0) 24.5 PG (27.0-31.0) Mean Corpuscular Hemoglobin Concent 31.5 G/DL (32.0-36.0) 30.5 G/DL (32.0-36.0) Red Cell Distribution Width 18.6 % (11.6-14.8) 21.7 % (11.6-14.8) Platelet Count 332 K/UL (150-450) 337 K/UL (150-450) Mean Platelet Volume 7.1 FL (6.5-10.1) 6.7 FL (6.5-10.1) Neutrophils (%) (Auto) % (45.0-75.0) 76.1 % (45.0-75.0) Lymphocytes (%) (Auto) % (20.0-45.0) 16.2 % (20.0-45.0) Monocytes (%) (Auto) % (1.0-10.0) 4.5 % (1.0-10.0) Eosinophils (%) (Auto) % (0.0-3.0) 2.5 % (0.0-3.0) Basophils (%) (Auto) % (0.0-2.0) 0.8 % (0.0-2.0) Differential Total Cells Counted 100 Neutrophils % (Manual) 84 % (45-75) Lymphocytes % (Manual) 8 % (20-45) Monocytes % (Manual) 6 % (1-10) Eosinophils % (Manual) 0 % (0-3) Basophils % (Manual) 0 % (0-2) Band Neutrophils 2 % (0-8) Platelet Estimate Adequate Platelet Morphology Normal Polychromasia 1+ Hypochromasia 1+ Anisocytosis 1+ Microcytosis 1+ Sodium Level 138 MMOL/L (136-145) 139 MMOL/L (136-145) Potassium Level 3.9 MMOL/L (3.5-5.1) 4.3 MMOL/L (3.5-5.1) Chloride Level 104 MMOL/L (98-107) 104 MMOL/L (98-107) Carbon Dioxide Level 28 MMOL/L (21-32) 26 MMOL/L (21-32) Anion Gap 6 mmol/L (5-15) 9 mmol/L (5-15) Blood Urea Nitrogen 8 mg/dL (7-18) 11 mg/dL (7-18) Creatinine 0.9 MG/DL (0.55-1.30) 1.0 MG/DL (0.55-1.30) Estimat Glomerular Filtration Rate mL/min (>60) mL/min (>60) Glucose Level 135 MG/DL (74-106) 126 MG/DL (74-106) Calcium Level 9.3 MG/DL (8.5-10.1) 9.2 MG/DL (8.5-10.1) Total Bilirubin 0.2 MG/DL (0.2-1.0) Aspartate Amino Transf (AST/SGOT) 32 U/L (15-37) Alanine Aminotransferase (ALT/SGPT) 47 U/L (12-78) Alkaline Phosphatase 90 U/L (46-116) Pro-B-Type Natriuretic Peptide 538 pg/mL (0-125) Total Protein 8.1 G/DL (6.4-8.2) Albumin 2.6 G/DL (3.4-5.0) Globulin 5.5 g/dL Albumin/Globulin Ratio 0.5 (1.0-2.7) Height (Feet): 5 Height (Inches): 0.00 Weight (Pounds): 205 Chidi Yanez Jul 24, 2017 23:17
--- NOTE | 2017-07-25 13:22 | Discharge Summary ---
Discharge Summary Hospital Course Date of Admission Jul 12, 2017 at 10:57 Date of Discharge Jul 23, 2017 at 14:20 Admitting Diagnosis PNEUMONIA HPI Joan Ricks is a 72 year old female who was admitted on Jul 12, 2017 at 10:57 for Pneumonia Hospital Course DC SUMMARY # [id number] Discharge Medications Continued Medications: Albuterol Sulfate* (Albuterol Sulfate Hhn*) 2.5 Mg/3 Ml Vial.neb 3 ML INH Q4H PRN for Shortness of Breath, EA Amlodipine Besylate* (Amlodipine Besylate*) 10 Mg Tablet 10 MG PO DAILY, #10 TAB Atorvastatin Calcium* (Atorvastatin Calcium*) 40 Mg Tablet 40 MG ORAL BEDTIME, TAB Gabapentin* (Gabapentin*) 300 Mg Capsule 300 MG ORAL BEDTIME, CAP Glimepiride (Glimepiride) 2 Mg Tablet 2 MG ORAL BEFORE BREAKFAST, TAB Hydrocodone Bit/Acetaminophen 5-325* ([place] 5-325*) 1 Each Tablet 1 TAB ORAL DAILY PRN for Severe Pain (Pain Scale 7-10), TAB 0 Refills Ibuprofen* (Motrin*) 600 Mg Tablet 600 MG ORAL Q6H PRN for For Pain, #30 TAB Metformin Hcl* (Metformin Hcl*) 850 Mg Tablet 850 MG ORAL BID, TAB Nitroglycerin (Nitroglycerin) 0.4 Mg Tab.subl 0.4 MG SL, TAB Temazepam* (Restoril*) 15 Mg Capsule 15 MG ORAL BEDTIME PRN for Insomnia, CAP Discharge Condition Upon Discharge: stable Discharge Disposition Patient was discharged to Home with Home Health() Discharge Diagnoses: Keith (Delfin)Asiya NP Jul 25, 2017 13:22
--- NOTE | 2017-07-26 02:32 | Discharge Summary 2 SIG ---
DATE OF ADMISSION: 07/12/2017 DATE OF DISCHARGE: 07/23/2017 REASON FOR ADMISSION: 72-year-old female with past medical history of hypertension, COPD, diabetes, GERD, osteoarthritis, rheumatoid arthritis, and liver disease with history of hepatitis in 1968, presented with two days of productive cough, along with body aches and chills. She denied chest pain, shortness of breath, abdominal pain, nausea, and vomiting. She reported having flu and pneumonia vaccine earlier this year. Vital signs were significant for tachycardia and mild hypoxia. Chest x-ray revealed bilateral interstitial disease with right-sided infiltrate. The patient was pancultured and started on empiric antibiotics. Leukocytosis- 32.6. Hemoglobin -9.3, hematocrit -31.1, and MCV -77. Sodium 1-32, calcium -7.9, BUN -21, and creatinine- 1.2. Intravenous fluid bolus was given. The patient was not on steroids at home, as was specifically asked for, since she had a history of rheumatoid arthritis. The patient exhibited signs of flu with myalgia and chills and was given Tamiflu in the emergency room. EKG revealed normal sinus rhythm. No acute ischemic changes. The patient was admitted with pneumonia, sepsis, influenza like illness. HOSPITAL COURSE: The patient was admitted. The patient was hypoxemic and required placement of Venturi mask at the emergency department. Bond Runner closely followed. Supplemental oxygen titrated to keep pulse oximetry above 92%. Pulmonary toilet provided around the clock and as needed. CPT was added to pulmonary toilet. The patient was on empiric antibiotics and Tamiflu. The patient had a prior influenza exposure, per history. Influenza screen test was negative,thus Tamiflu was discontinued. Sputum culture was positive for Heidy. The patient was on antibiotics and Fluconazole as per ID recommendation, who closely followed the patient. Blood cultures were negative. CT of the chest revealed right lower lobe consolidation and mediastinal lymphadenopathy, nonspecific. Antitussive provided as needed. The patient was on DVT prophylaxis. Follow up chest x-ray still revealed evidence of infiltrate. Guest Experience Captain closely followed. Echocardiogram revealed preserved ejection fraction of 65% to 70% and right ventricular systolic pressure of 60 consistent with severe pulmonary hypertension as well as [id number] mitral regurgitation. Per change advisor, dyspnea, that the patient initially experienced, was likely secondary to community-acquired pneumonia since no cardiac complaint and ejection fraction preserved. The patient also demonstrated on ECHO severe pulmonary hypertension probably due to the underlying COPD. Blood pressure was fairly well controlled with current regimen. Blood sugar was managed with sliding scale of insulin and Amaryl. Anemia workup was consistent with anemia of iron deficiency. The patient was started on Venofer. Wireline Field Operator closely followed. Hemoglobin and hematocrit were closely monitored with goal to keep hemoglobin above 7.5. LDH was within normal limits. Wireline Field Operator closely followed. The patient was started on the iron supplements with daily CBC monitoring while in the hospital. Manager Telemarketing closely followed for electrolyte abnormalities. All antibiotics were mixed with normal saline. Sodium was up to normal. Electrolytes were corrected as needed. Nephrotoxics were avoided especially nonsteroidal anti-inflammatory medication. Per outside event sales specialist, leukocytosis was likely secondary to sepsis. Per Infectious Disease doctor, pneumonia was improving. Leukocytosis was improving. Prior to discharge, WBC down to 16.7. ID recommended while in the hospital to continue cefepime and change to Levaquin upon discharge to complete the full course of antibiotic. The patient was afebrile. Patient clinically improved. Renal parameters down to normal, BUN from 21 down to 11 and creatinine from 1.2 down to 1.0. The patient was stable for discharge home with home health services. FINAL DIAGNOSES: 1. Acute hypoxemic respiratory failure, resolved 2. Sepsis. 3. Community-acquired pneumonia/right lower lobe pneumonia with Heidy. 4. Influenza exposure. 5. Chronic obstructive pulmonary disease. 6. Severe pulmonary hypertension. 7. Iron-deficiency anemia. 8. [id number]-kb-[id number] mitral regurgitation. 9. Hypertension. 10. Diabetes mellitus type 2. 11. Chronic liver disease. 12. Acute kidney injury, resolved. 13. Electrolyte imbalances (hypocalcemia, hyponatremia). 14. Morbid obesity. DISCHARGE MEDICATIONS: See medication reconciliation list. DISCHARGE INSTRUCTIONS: The patient was discharged home with home health services. Follow up with medical doctor next week. Jai Siddiqi D.O. Asiya Sharpein), N.PKevin DR: YI JOB#: [id number] CC: ETELVINA
== END 2017-07-23 14:20 | disposition home health service (06) | DRG 720 ==
LOC: EMR 10:05 → 2E 10:57 → EDBEDREQ 12:56 → 2E 15:42 → 4W 07-18 12:47
DX: A41.9 Sepsis, unspecified organism (principal); J96.01 Acute respiratory failure with hypoxia; N17.9 Acute kidney failure, unspecified; J18.9 Pneumonia, unspecified organism; I27.20 Pulmonary hypertension, unspecified; Z68.41 Body mass index [BMI] 40.0-44.9, adult; J44.0 Chronic obstructive pulmonary disease with (acute) lower respiratory infection; E87.1 Hypo-osmolality and hyponatremia; I10 Essential (primary) hypertension; Z79.84 Long term (current) use of oral hypoglycemic drugs; E11.40 Type 2 diabetes mellitus with diabetic neuropathy, unspecified; J44.1 Chronic obstructive pulmonary disease with (acute) exacerbation; D50.9 Iron deficiency anemia, unspecified; K76.9 Liver disease, unspecified; E83.51 Hypocalcemia; Z20.828 Contact with and (suspected) exposure to other viral communicable diseases; E66.01 Morbid (severe) obesity due to excess calories; R00.1 Bradycardia, unspecified; R05 Cough
CPT/HCPCS: 36415; 71045; 71250; 80048; 80053; 80069; 80202; 81003; 82378; 82570; 82728; 82962; 83540; 83550; 83615; 83880; 85007; 85025; 85044; 86710; 87040; 87070; 87205; 93005; 93306; 94640; 94664; 94760; 97803; J1815; J7620

== ENCOUNTER 2019-07-29 09:22 | Inpatient (IN) | payer OTHER, MEDICARE ==
[~2019-07-29] VITALS: Ht 157.5 cm; Wt 86.2 kg
[~2019-07-29 09:22] MED LIST changes: +LOSARTAN-HCTZ1 EACH ORAL; +NORCO 10-325 T1 EACH ORAL
--- NOTE | 2019-07-29 09:36 | Emergency Room Report ---
History of Present Illness General Chief Complaint: Dyspnea/Respdistress Source: Patient Present Illness [facility] Disclaimer: Please note that this report is being documented using DRAGON technology. This can lead to erroneous entry secondary to incorrect interpretation by the dictating instrument. HPI: 74-year-old female with history of COPD, non-oxygen dependent, hypertension , hyperlipidemia, hepatitis, obesity presents for evaluation of shortness of breath. Patient was admitted to the hospital within the past 2 weeks for pneumonia and COPD exacerbation. She was feeling well for a few days after which she developed upper respiratory symptoms including rhinorrhea, sore throat and a productive cough. Sore throat and nasal congestion have resolved though her cough is persistent. She has noticed worsening shortness of breath over the past 2 days. She is compliant with her albuterol therapy and finished her antibiotics after hospital admissions. States she does not take steroids because of her prior hepatitis. Does not use oxygen at home. She was scheduled to see her PMD today however she became acutely short of breath while walking to the car this morning. Reports that productive cough is not really changed over the past 5 days. Denies fever, chills, chest pain, palpitations, vomiting, diarrhea, myalgias. She is a former smoker but quit a few years ago. Denies history of CHF.i PMH: COPD, hypertension, hyperlipidemia, hepatitis B, obesity PSH: Cholecystectomy Allergies: None reported Social Hx: Former smoker, quit 2 years ago. Allergies: Coded Allergies: No Known Allergies (Unverified , 06/17/12) Nursing Documentation-PMH Past Medical History: No History, Except For Hx Cardiac Problems: Yes Hx Hypertension: Yes Hx COPD: Yes Hx Diabetes: Yes Hx Cancer: No Hx Gastrointestinal Problems: No Hx Neurological Problems: No Review of Systems All Other Systems: negative except mentioned in HPI Physical Exam Vital Signs Date Time Temp Pulse Resp B/P (MAP) Pulse Ox O2 Delivery O2 Flow Rate FiO2 07/29/19 09:28 97.9 96 19 74 Room Air General: Awake and alert, uncomfortable appearing, tachypneic, hypoxic HEENT: NC/AT. EOMI. no stridor. Cardiovascular: RRR. S1 and S2 normal. No murmur appreciated Resp: Increased work of breathing, tachypnea. Bilateral inspiratory expiratory wheezes with coarse crackles at the bases. Saturating 77% on room air. Abdomen: Abdomen is soft, nondistended. Nontender Skin: Abdominal surgical scars are clean dry and intact. Otherwise no rash, breakdown appreciated on the exposed skin MSK: Normal tone and bulk. Moving all extremities. No obvious deformity. Neuro: Awake and alert. Mentating appropriately. Medical Decision Making Diagnostic Impression: Primary Impression: COPD (chronic obstructive pulmonary disease) Additional Impression: Acute hypoxemic respiratory failure ER Course 74-year-old female presents for evaluation of worsening shortness of breath after recent hospitalization for pneumonia and COPD exacerbation. Differential includes was not limited to URI, influenza, COPD exacerbation, viral syndrome, respiratory failure, ACS, bronchitis, pneumothorax. Patient arrives hypoxic, tachypneic in moderate respiratory distress. We will start nasal oxygen, breathing treatments and advance to BiPAP as necessary. We will draw broad labs including cardiac enzymes and blood gas. Patient will require hospitalization. Laboratory Tests Test 07/29/19 09:31 07/29/19 09:40 Arterial Blood pH 7.344 (7.350-7.450) Arterial Blood Partial Pressure CO2 37.2 mmHg (35.0-45.0) Arterial Blood Partial Pressure O2 52.3 mmHg (75.0-100.0) L Arterial Blood HCO3 19.8 mmol/L (22.0-26.0) L Arterial Blood Oxygen Saturation 82.2 % (95-100) *L Arterial Blood Base Excess -5.3 (-2-2) L Raudel Test Positive White Blood Count 12.5 K/UL (4.8-10.8) H Red Blood Count 4.11 M/UL (4.20-5.40) L Hemoglobin 10.3 G/DL (12.0-16.0) L Hematocrit 33.0 % (37.0-47.0) L Mean Corpuscular Volume 80 FL (80-99) Mean Corpuscular Hemoglobin 25.2 PG (27.0-31.0) L Mean Corpuscular Hemoglobin Concent 31.3 G/DL (32.0-36.0) L Red Cell Distribution Width 16.9 % (11.6-14.8) H Platelet Count 272 K/UL (150-450) Mean Platelet Volume 6.7 FL (6.5-10.1) Neutrophils (%) (Auto) 67.8 % (45.0-75.0) Lymphocytes (%) (Auto) 20.5 % (20.0-45.0) Monocytes (%) (Auto) 7.6 % (1.0-10.0) Eosinophils (%) (Auto) 3.7 % (0.0-3.0) H Basophils (%) (Auto) 0.4 % (0.0-2.0) Sodium Level 137 MMOL/L (136-145) Potassium Level 4.4 MMOL/L (3.5-5.1) Chloride Level 102 MMOL/L (98-107) Carbon Dioxide Level 24 MMOL/L (21-32) Anion Gap 11 mmol/L (5-15) Blood Urea Nitrogen 12 mg/dL (7-18) Creatinine 1.0 MG/DL (0.55-1.30) Estimate Glomerular Filtration Rate mL/min (>60) Glucose Level 144 MG/DL (74-106) H Calcium Level 8.4 MG/DL (8.5-10.1) L Total Bilirubin 0.2 MG/DL (0.2-1.0) Aspartate Amino Transferase (AST) 25 U/L (15-37) Alanine Aminotransferase (ALT) 24 U/L (12-78) Alkaline Phosphatase 93 U/L (46-116) Troponin I 0.013 ng/mL (0.000-0.056) Pro-B-Type Natriuretic Peptide 118 pg/mL (0-125) Total Protein 7.9 G/DL (6.4-8.2) Albumin 2.9 G/DL (3.4-5.0) L Globulin 5.0 g/dL Albumin/Globulin Ratio 0.6 (1.0-2.7) L Microbiology Date/Time Source Procedure Growth Status 07/29/19 09:40 Nasal Nares - Final Complete 07/29/19 09:40 Nasal Nares - Final Complete EKG Diagnostic Results EKG Time: 09:32 Rate: normal Rhythm: NSR ST Segments: no acute changes Other Impression Sinus rhythm, normal axis, normal intervals, no ST segment changes. Rhythm Strip Diag. Results Rhythm Strip Time: 09:32 EP Interpretation: yes Rate: 80s Rhythm: NSR, no PVC's, no ectopy Reevaluation Time: 10:30 Last Vital Signs Date Time Temp Pulse Resp B/P (MAP) Pulse Ox O2 Delivery O2 Flow Rate FiO2 07/29/19 09:28 97.9 96 19 74 Room Air Reevaluation Impression No evidence of infiltrate on chest x-ray though there is increased congestion from previous. Slight white count of 12.5 though differential is within normal limits. Chemistry unremarkable aside from slightly elevated glucose. Troponin within normal limits. Blood gas shows hypoxemia with an O2 saturation of 82%. PCO2 within normal limits. Will continue on oxygen. She will be admitted for COPD exacerbation and hypoxemia. Disposition: ADMITTED INPATIENT Condition: Serious Chevy Ramirez MD Jul 29, 2019 09:36
[2019-07-29] MEDS ORDERED: Solu-MEDROL 125mg Inj IVP ONE (09:45)
[2019-07-29] MEDS: Ipratropium 0.02% Inh Soln 2.5ml UD HHN SCH ×2 (09:49→09:50)
[2019-07-29] MEDS: Albuterol ud Inhalation HHN SCH ×2 (09:49→09:50)
[2019-07-29 09:57] LABS: BASOPHILS % (AUTO) 0.4 % (0.0-2.0); EOSINOPHILS % (AUTO) 3.7 % (0.0-3.0); HEMOGLOBIN 10.3 G/DL (12.0-16.0); LYMPHOCYTES % (AUTO) 20.5 % (20.0-45.0); MEAN CORPUSCULAR VOLUME 80 FL (80-99); MONOCYTES % (AUTO) 7.6 % (1.0-10.0); NEUTROPHILS % (AUTO) 67.8 % (45.0-75.0); PLATELET COUNT 272 K/UL (150-450); RED BLOOD COUNT 4.11 M/UL (4.20-5.40); RED CELL DISTRIBUTION WIDTH 16.9 % (11.6-14.8); WHITE BLOOD COUNT 12.5 K/UL (4.8-10.8)
[2019-07-29 09:58] VITALS: BP 109/42
--- NOTE | 2019-07-29 10:03 | NUR ---
ED Nurse Note: Patient walked into ED from home c/o shortness of breath. patient reports [place] [facility] [place]. patient reports coughing up yellow phlegm for 1 week. patient reports she is on antibiotics. upon arrival patient's O2 sat on room air was 70%. Dr. Ramirez at bedside. patient changed to a hospital gown and placed on a division toll wire chief.
--- NOTE | 2019-07-29 10:04 | NUR ---
ED Nurse Note: RT on bedside, patient tolerating breathing tx without complication. family member at bedside.
[2019-07-29 10:14] LABS: ANION GAP 11 mmol/L (5-15); BLOOD UREA NITROGEN 12 mg/dL (7-18); CALCIUM 8.4 MG/DL (8.5-10.1); CARBON DIOXIDE 24 MMOL/L (21-32); CHLORIDE 102 MMOL/L (98-107); POTASSIUM 4.4 MMOL/L (3.5-5.1); SODIUM 137 MMOL/L (136-145)
[2019-07-29 10:25] LABS: ALANINE AMINOTRANSFERASE 24 U/L (12-78); ALBUMIN 2.9 G/DL (3.4-5.0); ALBUMIN/GLOBULIN RATIO 0.6 (1.0-2.7); ALKALINE PHOSPHATASE 93 U/L (46-116); ASPARTATE AMINO TRANSFERASE 25 U/L (15-37); BILIRUBIN,TOTAL 0.2 MG/DL (0.2-1.0)
--- NOTE | 2019-07-29 10:50 | NUR ---
ED Nurse Note: RT at bedside.
--- NOTE | 2019-07-29 10:53 | Diagnostic Imaging Report ---
Indication: Shortness of breath Technique: One view of the chest Comparison: 07/21/2019 Findings: Bilateral interstitial congestion appears slightly increased since the prior exam. There is some atelectasis or scarring again demonstrated in the left lung base. The pleural spaces appear clear. The heart size is normal. The aorta is calcified Impression: Increased bilateral interstitial congestion, since prior exam 07/21/2019
--- NOTE | 2019-07-29 11:43 | NUR ---
NURSE NOTES: Received report from EVERARDO Whelan in ED. RN Notified Dr. Siddiqi of admission, asked for orders. MD stated to call MD Sarmiento. Dr. Sarmiento notified
--- NOTE | 2019-07-29 11:48 | NUR ---
report given to rosa patient is to be transferd to room 211-2 via acls protocol
--- NOTE | 2019-07-29 11:58 | Consultation ---
History of Present Illness General Date patient seen: Jul 29, 2019 Chief Complaint: Dyspnea/Respdistress Present Illness HPI 74 y/o F with hx of COPD, HTN, HLD, Dm2, former smoker, hepatitis B, s/p cholecystectomy, obesity presented to ED on 07/29 with SOB, rhinorrhea, sore throat and productive cough. Denied fever/chills, chest pain, vomiting, diarrhea, myalagis Of note, patient admitted here from 07/17-07/21/19 for COPD exacerbation Allergies: Coded Allergies: No Known Allergies (Unverified , 06/17/12) Medication History Scheduled Amlodipine Besylate* (Amlodipine Besylate*), 10 MG PO DAILY, (Reported) Atorvastatin Calcium* (Atorvastatin Calcium*), 40 MG ORAL BEDTIME, (Reported) Gabapentin* (Gabapentin*), 300 MG ORAL BEDTIME, (Reported) Glimepiride (Glimepiride), 2 MG ORAL BEFORE BREAKFAST, (Reported) Losartan/Hydrochlorothiazide (Losartan-Hctz 100-12.5 Mg Tab), 1 TAB ORAL DAILY Losartan/Hydrochlorothiazide 100-25 Tablet (Hyzaar 100-25 Tablet), 1 TAB ORAL DAILY, (Reported) Metformin Hcl* (Metformin Hcl*), 850 MG ORAL BID, (Reported) Theophylline Anhydrous (Theophylline), 100 MG PO BID, (Reported) Scheduled PRN Albuterol Sulfate* (Albuterol Sulfate Hhn*), 3 ML INH Q4H PRN for Shortness of Breath, (Reported) Codeine/Promethazine Hcl* (Promethazine-Codeine Syrup*), 5 ML ORAL Q6H PRN for For Cough, (Reported) Diphenhydramine Hcl* (Benadryl*), 25 MG ORAL Q6H PRN for Itching, (Reported) Hydrocodone Bit/Acetaminophen 10-325* ([place] 10-325*), 1 TAB ORAL Q6H PRN for For Pain, (Reported) Ibuprofen* (Motrin*), 600 MG ORAL Q6H PRN for For Pain, (Reported) Discontinued Medications Nitroglycerin (Nitroglycerin), 0.4 MG SL for CHEST PAIN , (Reported) Discontinued Reason: Pt stopped taking med Patient History Healthcare decision maker Resuscitation status Advanced Directive on File Patient History Narrative Pmhx: as above Fhx: non contributory Shx: No E/T/D Physical Exam Physical Exam Narrative General: Awake and alert, uncomfortable appearing, tachypneic, hypoxic HEENT: NC/AT. EOMI. no stridor. Cardiovascular: RRR. S1 and S2 normal. No murmur appreciated Resp: Increased work of breathing, tachypnea. Bilateral inspiratory expiratory wheezes with coarse crackles at the bases. Saturating 77% on room air. Abdomen: Abdomen is soft, nondistended. Nontender Skin: Abdominal surgical scars are clean dry and intact. Otherwise no rash, breakdown appreciated on the exposed skin MSK: Normal tone and bulk. Moving all extremities. No obvious deformity. Neuro: Awake and alert. Mentating appropriately. Last 24 Hour Vital Signs Date Time Temp Pulse Resp B/P (MAP) Pulse Ox O2 Delivery O2 Flow Rate FiO2 07/29/19 11:16 94 16 99 07/29/19 10:02 84 18 Nasal Cannula 2.0 28 07/29/19 09:58 97.9 82 24 109/42 97 Nasal Cannula 2.0 28 07/29/19 09:46 84 18 90 Nasal Cannula 2.0 28 07/29/19 09:28 97.9 96 19 74 Room Air Laboratory Tests Test 07/29/19 09:31 07/29/19 09:40 Arterial Blood pH 7.344 (7.350-7.450) Arterial Blood Partial Pressure CO2 37.2 mmHg (35.0-45.0) Arterial Blood Partial Pressure O2 52.3 mmHg (75.0-100.0) L Arterial Blood HCO3 19.8 mmol/L (22.0-26.0) L Arterial Blood Oxygen Saturation 82.2 % (95-100) *L Arterial Blood Base Excess -5.3 (-2-2) L Raudel Test Positive White Blood Count 12.5 K/UL (4.8-10.8) H Red Blood Count 4.11 M/UL (4.20-5.40) L Hemoglobin 10.3 G/DL (12.0-16.0) L Hematocrit 33.0 % (37.0-47.0) L Mean Corpuscular Volume 80 FL (80-99) Mean Corpuscular Hemoglobin 25.2 PG (27.0-31.0) L Mean Corpuscular Hemoglobin Concent 31.3 G/DL (32.0-36.0) L Red Cell Distribution Width 16.9 % (11.6-14.8) H Platelet Count 272 K/UL (150-450) Mean Platelet Volume 6.7 FL (6.5-10.1) Neutrophils (%) (Auto) 67.8 % (45.0-75.0) Lymphocytes (%) (Auto) 20.5 % (20.0-45.0) Monocytes (%) (Auto) 7.6 % (1.0-10.0) Eosinophils (%) (Auto) 3.7 % (0.0-3.0) H Basophils (%) (Auto) 0.4 % (0.0-2.0) Sodium Level 137 MMOL/L (136-145) Potassium Level 4.4 MMOL/L (3.5-5.1) Chloride Level 102 MMOL/L (98-107) Carbon Dioxide Level 24 MMOL/L (21-32) Anion Gap 11 mmol/L (5-15) Blood Urea Nitrogen 12 mg/dL (7-18) Creatinine 1.0 MG/DL (0.55-1.30) Estimat Glomerular Filtration Rate mL/min (>60) Glucose Level 144 MG/DL (74-106) H Calcium Level 8.4 MG/DL (8.5-10.1) L Total Bilirubin 0.2 MG/DL (0.2-1.0) Aspartate Amino Transf (AST/SGOT) 25 U/L (15-37) Alanine Aminotransferase (ALT/SGPT) 24 U/L (12-78) Alkaline Phosphatase 93 U/L (46-116) Troponin I 0.013 ng/mL (0.000-0.056) Pro-B-Type Natriuretic Peptide 118 pg/mL (0-125) Total Protein 7.9 G/DL (6.4-8.2) Albumin 2.9 G/DL (3.4-5.0) L Globulin 5.0 g/dL Albumin/Globulin Ratio 0.6 (1.0-2.7) L Microbiology Date/Time Source Procedure Growth Status 07/29/19 09:40 Nasal Nares - Final Complete 07/29/19 09:40 Nasal Nares - Final Complete Height (Feet): 5 Height (Inches): 2.00 Weight (Pounds): 187 Medications Current Medications Medications (Trade) Dose Ordered Sig/Ana Maria Route PRN Reason Start Time Stop Time Status Last Admin Dose Admin Levofloxacin (Levaquin) 500 mg DAILY ORAL 07/29/19 11:45 08/05/19 11:44 UNV Assessment/Plan Assessment/Plan: Assessment: COPD exacerbation URI syndrome -influenza sc neg -CXR: Increased bilateral interstitial congestion, since prior exam 07/21/2019 Pulmonary congestion Afebrile Mild leukocytosis COPD HTN DM2 Hepatitis B HLD former smoker s/p cholecystectomy obesity Plan: -Start Levaquin for COPD exacerbation -07/21 SP Ceftriaxone #4, Azithromycin #4 - 07/18/19 S/P Zosyn #1 -f/u cx -Monitor CBC/CMP, temperatures -aspiration precautions Thank you for consulting [facility]. Will continue to follow along with you. Discussed with Aleksandra Blair M.D. Jul 29, 2019 11:58
[2019-07-29 12:00] VITALS: BP 112/62
[2019-07-29] MEDS ORDERED: Levofloxacin 500mg tab ORAL SCH (12:00)
[2019-07-29] MEDS ORDERED: Nitroglycerin Subl 0.4mg tab SL PRN (12:00)
--- NOTE | 2019-07-29 12:00 | NUR ---
ED Nurse Note: patient transferred to 2E with all of her belongings on ACLS protocol.
--- NOTE | 2019-07-29 12:02 | Consultation ---
History of Present Illness General Date patient seen: Jul 29, 2019 Chief Complaint: Dyspnea/Respdistress Present Illness HPI 74-year-old female with history of COPD, , hypertension, obesity presented ER for evaluation of shortness of breath. Patient was admitted to the hospital within the past 2 weeks for pneumonia and COPD exacerbation. She was feeling well for a few days after which she developed upper respiratory symptoms including rhinorrhea, sore throat and a productive cough. Her cough is persistent. She has noticed worsening shortness of breath over the past 2 days. she became acutely short of breath while walking to the car this morning Denies fever, chills, chest pain, palpitations, vomiting, diarrhea, myalgias. She is admitted for further management. Allergies: Coded Allergies: No Known Allergies (Unverified , 06/17/12) Medication History Scheduled Amlodipine Besylate* (Amlodipine Besylate*), 10 MG PO DAILY, (Reported) Atorvastatin Calcium* (Atorvastatin Calcium*), 40 MG ORAL BEDTIME, (Reported) Gabapentin* (Gabapentin*), 300 MG ORAL BEDTIME, (Reported) Glimepiride (Glimepiride), 2 MG ORAL BEFORE BREAKFAST, (Reported) Losartan/Hydrochlorothiazide (Losartan-Hctz 100-12.5 Mg Tab), 1 TAB ORAL DAILY Losartan/Hydrochlorothiazide 100-25 Tablet (Hyzaar 100-25 Tablet), 1 TAB ORAL DAILY, (Reported) Metformin Hcl* (Metformin Hcl*), 850 MG ORAL BID, (Reported) Theophylline Anhydrous (Theophylline), 100 MG PO BID, (Reported) Scheduled PRN Albuterol Sulfate* (Albuterol Sulfate Hhn*), 3 ML INH Q4H PRN for Shortness of Breath, (Reported) Codeine/Promethazine Hcl* (Promethazine-Codeine Syrup*), 5 ML ORAL Q6H PRN for For Cough, (Reported) Diphenhydramine Hcl* (Benadryl*), 25 MG ORAL Q6H PRN for Itching, (Reported) Hydrocodone Bit/Acetaminophen 10-325* ([place] 10-325*), 1 TAB ORAL Q6H PRN for For Pain, (Reported) Ibuprofen* (Motrin*), 600 MG ORAL Q6H PRN for For Pain, (Reported) Discontinued Medications Nitroglycerin (Nitroglycerin), 0.4 MG SL for CHEST PAIN , (Reported) Discontinued Reason: Pt stopped taking med Patient History Healthcare decision maker Resuscitation status Advanced Directive on File Past Medical/Surgical History Past Medical/Surgical History: (1) COPD (chronic obstructive pulmonary disease) (2) Chronic liver disease (3) Diabetes mellitus (4) Ventral incisional hernia Review of Systems All Other Systems: negative except mentioned in HPI Physical Exam General Appearance: no apparent distress Lines, tubes and drains: peripheral HEENT: normocephalic, atraumatic Neck: non-tender, supple Respiratory/Chest: rhonchi - bilaterally, rhonchi - right Breasts: no masses Cardiovascular/Chest: normal peripheral pulses, normal rate Abdomen: normal bowel sounds, non tender Genitourinary/Rectal: normal genital exam Extremities: normal range of motion Last 24 Hour Vital Signs Date Time Temp Pulse Resp B/P (MAP) Pulse Ox O2 Delivery O2 Flow Rate FiO2 07/29/19 11:46 97.5 78 18 110/56 97 Nasal Cannula 2.0 07/29/19 11:16 94 16 99 07/29/19 10:02 84 18 Nasal Cannula 2.0 28 07/29/19 09:58 97.9 82 24 109/42 97 Nasal Cannula 2.0 28 07/29/19 09:46 84 18 90 Nasal Cannula 2.0 28 07/29/19 09:28 97.9 96 19 74 Room Air Laboratory Tests Test 07/29/19 09:31 07/29/19 09:40 Arterial Blood pH 7.344 (7.350-7.450) Arterial Blood Partial Pressure CO2 37.2 mmHg (35.0-45.0) Arterial Blood Partial Pressure O2 52.3 mmHg (75.0-100.0) L Arterial Blood HCO3 19.8 mmol/L (22.0-26.0) L Arterial Blood Oxygen Saturation 82.2 % (95-100) *L Arterial Blood Base Excess -5.3 (-2-2) L Raudel Test Positive White Blood Count 12.5 K/UL (4.8-10.8) H Red Blood Count 4.11 M/UL (4.20-5.40) L Hemoglobin 10.3 G/DL (12.0-16.0) L Hematocrit 33.0 % (37.0-47.0) L Mean Corpuscular Volume 80 FL (80-99) Mean Corpuscular Hemoglobin 25.2 PG (27.0-31.0) L Mean Corpuscular Hemoglobin Concent 31.3 G/DL (32.0-36.0) L Red Cell Distribution Width 16.9 % (11.6-14.8) H Platelet Count 272 K/UL (150-450) Mean Platelet Volume 6.7 FL (6.5-10.1) Neutrophils (%) (Auto) 67.8 % (45.0-75.0) Lymphocytes (%) (Auto) 20.5 % (20.0-45.0) Monocytes (%) (Auto) 7.6 % (1.0-10.0) Eosinophils (%) (Auto) 3.7 % (0.0-3.0) H Basophils (%) (Auto) 0.4 % (0.0-2.0) Sodium Level 137 MMOL/L (136-145) Potassium Level 4.4 MMOL/L (3.5-5.1) Chloride Level 102 MMOL/L (98-107) Carbon Dioxide Level 24 MMOL/L (21-32) Anion Gap 11 mmol/L (5-15) Blood Urea Nitrogen 12 mg/dL (7-18) Creatinine 1.0 MG/DL (0.55-1.30) Estimat Glomerular Filtration Rate mL/min (>60) Glucose Level 144 MG/DL (74-106) H Calcium Level 8.4 MG/DL (8.5-10.1) L Total Bilirubin 0.2 MG/DL (0.2-1.0) Aspartate Amino Transf (AST/SGOT) 25 U/L (15-37) Alanine Aminotransferase (ALT/SGPT) 24 U/L (12-78) Alkaline Phosphatase 93 U/L (46-116) Troponin I 0.013 ng/mL (0.000-0.056) Pro-B-Type Natriuretic Peptide 118 pg/mL (0-125) Total Protein 7.9 G/DL (6.4-8.2) Albumin 2.9 G/DL (3.4-5.0) L Globulin 5.0 g/dL Albumin/Globulin Ratio 0.6 (1.0-2.7) L Microbiology Date/Time Source Procedure Growth Status 07/29/19 09:40 Nasal Nares - Final Complete 07/29/19 09:40 Nasal Nares - Final Complete Height (Feet): 5 Height (Inches): 2.00 Weight (Pounds): 187 Medications Current Medications Medications (Trade) Dose Ordered Sig/Ana Maria Route PRN Reason Start Time Stop Time Status Last Admin Dose Admin Albuterol/ Ipratropium (Albuterol/ Ipratropium) 3 ml EVERY 4 HOURS PRN HHN dyspnea 07/29/19 12:00 08/03/19 11:59 UNV Amlodipine Besylate (Norvasc) 10 mg DAILY ORAL 07/30/19 09:00 08/29/19 08:59 UNV Dextrose (Dextrose 50%) 25 ml Q30M PRN IV Hypoglycemia 07/29/19 12:00 08/28/19 11:59 UNV Dextrose (Dextrose 50%) 25 ml Q30M PRN IV Hypoglycemia 07/29/19 12:00 08/28/19 11:59 UNV Dextrose (Dextrose 50%) 50 ml Q30M PRN IV Hypoglycemia 07/29/19 12:00 08/28/19 11:59 UNV Dextrose (Dextrose 50%) 50 ml Q30M PRN IV Hypoglycemia 07/29/19 12:00 08/28/19 11:59 UNV Gabapentin (Neurontin) 300 mg BEDTIME ORAL 07/29/19 21:00 08/28/19 20:59 UNV Heparin Sodium (Porcine) (Heparin 5000 units/ml) 5,000 units EVERY 12 HOURS SUBQ 07/29/19 21:00 08/28/19 20:59 UNV Insulin Aspart (NovoLOG) BEFORE MEALS AND HS SUBQ 07/29/19 16:30 08/28/19 16:29 UNV Levofloxacin (Levaquin) 250 mg Q24H ORAL 07/30/19 12:00 08/06/19 11:59 Levofloxacin (Levaquin) 500 mg ONCE ORAL 07/29/19 12:00 07/29/19 13:00 Methylprednisolone Sodium Succinate (Solu-MEDROL) 60 mg EVERY 6 HOURS IV 07/29/19 12:00 08/28/19 11:59 UNV Nitroglycerin (Ntg) 0.4 mg Q5M X 3 DOSES PRN SL Prn Chest Pain 07/29/19 12:00 08/28/19 11:59 UNV Ondansetron HCl (Zofran) 4 mg Q6H PRN IVP Nausea & Vomiting 07/29/19 12:00 08/28/19 11:59 UNV Piperacillin Sod/ Tazobactam Sod 2.25 gm/Dextrose 55 ml @ 110 mls/hr EVERY 8 HOURS IV 07/29/19 14:00 08/03/19 13:59 UNV Promethazine HCl/ Codeine (Phenergan with Codeine) 5 ml EVERY 6 HOURS PRN ORAL cough 07/29/19 12:00 08/28/19 11:59 UNV Temazepam (Restoril) 15 mg HSPRN PRN ORAL Insomnia 07/29/19 12:00 08/05/19 11:59 UNV Theophylline (Sixto-Dur) 100 mg EVERY 12 HOURS ORAL 07/29/19 21:00 08/28/19 20:59 UNV Assessment/Plan Problem List: (1) COPD exacerbation ICD Codes: J44.1 - Chronic obstructive pulmonary disease with (acute) exacerbation SNOMED: 830798219 (2) Chronic liver disease ICD Codes: K76.9 - Liver disease, unspecified SNOMED: 068831963 (3) COPD (chronic obstructive pulmonary disease) ICD Codes: J44.9 - Chronic obstructive pulmonary disease, unspecified SNOMED: 67853474 Assessment/Plan: respiratory treatment check sputum iv abx iv steroids sputum induction f/u liver enzymes dvt prophylaxis. Monika Sarmiento MD Jul 29, 2019 12:02
[2019-07-29 12:15] VITALS: BP 106/56
--- NOTE | 2019-07-29 12:15 | NUR ---
NURSE NOTES: PT brought to 208-2 via gurney from ED> Pt is awake, A/Ox4, talkative, no c/p pain, on 2L NC, vitals obtained, assessment done, see flowsheet, pt able to answer all questions, discussed plan of care, bed in lowest position, call light within reach
[2019-07-29] MEDS: Solu-MEDROL 125mg Inj IV SCH ×3 (13:15→23:54)
--- NOTE | 2019-07-29 13:37 | Consultation ---
History of Present Illness General Date patient seen: Jul 29, 2019 Reason for Hospitalization: Dyspnea/Respdistress Present Illness HPI This is a very pleasant 74-year-old female with history of COPD, non-oxygen dependent, hypertension, hyperlipidemia, hepatitis, obesity presents for evaluation of shortness of breath. Patient was admitted to the hospital within the past 2 weeks for pneumonia and COPD exacerbation. She is compliant with her albuterol therapy and finished her antibiotics after hospital admissions. She was feeling well for a few days after which she developed upper respiratory symptoms including rhinorrhea, sore throat and a productive cough. States that she began to have abdominal pain after episode of coughing and noted a firmness in her abdomen. surgery called to evaluate and assist with care. patient seen, chart reviewed, patient examined. no n/v/f/c. passing flatus. hungry Hx of prior open cholecystectomy years ago Allergies: Coded Allergies: No Known Allergies (Unverified , 06/17/12) Medication History Scheduled Amlodipine Besylate* (Amlodipine Besylate*), 10 MG PO DAILY, (Reported) Atorvastatin Calcium* (Atorvastatin Calcium*), 40 MG ORAL BEDTIME, (Reported) Gabapentin* (Gabapentin*), 300 MG ORAL BEDTIME, (Reported) Glimepiride (Glimepiride), 2 MG ORAL BEFORE BREAKFAST, (Reported) Losartan/Hydrochlorothiazide (Losartan-Hctz 100-12.5 Mg Tab), 1 TAB ORAL DAILY Losartan/Hydrochlorothiazide 100-25 Tablet (Hyzaar 100-25 Tablet), 1 TAB ORAL DAILY, (Reported) Metformin Hcl* (Metformin Hcl*), 850 MG ORAL BID, (Reported) Theophylline Anhydrous (Theophylline), 100 MG PO BID, (Reported) Scheduled PRN Albuterol Sulfate* (Albuterol Sulfate Hhn*), 3 ML INH Q4H PRN for Shortness of Breath, (Reported) Codeine/Promethazine Hcl* (Promethazine-Codeine Syrup*), 5 ML ORAL Q6H PRN for For Cough, (Reported) Hydrocodone Bit/Acetaminophen 10-325* ([place] 10-325*), 1 TAB ORAL Q6H PRN for For Pain, (Reported) Ibuprofen* (Motrin*), 600 MG ORAL Q6H PRN for For Pain, (Reported) Nitroglycerin (Nitroglycerin), 0.4 MG SL for CHEST PAIN , (Reported) Patient History History Provided By: Patient, Medical Record Healthcare decision maker Resuscitation status Full Code Advanced Directive on File Past Medical/Surgical History Past Medical/Surgical History: (1) Anemia (2) Sepsis (3) Community acquired pneumonia (4) COPD exacerbation (5) Diabetes mellitus (6) Chronic liver disease (7) Acute hypoxemic respiratory failure (8) COPD (chronic obstructive pulmonary disease) Review of Systems Review of Symptoms General ROS: no weight loss or fever Psychological ROS: no depression or mood changes, no memory loss Ophthalmic ROS: no visual changes or eye irritation ENT ROS: no nasal congestion, hearing loss, dizziness Allergy and Immunology ROS: no allergic symptoms or urticaria Hematological and Lymphatic ROS: no swollen glands, unusual bleeding or bruising Endocrine ROS: no polyuria, polydipsia, weight changes, temperature intolerance Respiratory ROS: no cough, shortness of breath, or wheezing Cardiovascular ROS: no chest pain or dyspnea on exertion Gastrointestinal ROS: abdominal pain, bright red blood in stool. Musculoskeletal ROS: no myalgias or arthralgias Neurological ROS: no TIA or stroke symptoms Dermatological ROS: no new or changing skin lesions, rashes or pruritis Physical Exam Physical Exam General appearance: alert, cooperative, no distress, appears stated age Head: Normocephalic, without obvious abnormality, atraumatic Eyes: conjunctivae/corneas clear. PERRL, EOM's intact. Fundi benign Throat: Lips, mucosa, and tongue normal. Teeth and gums normal Neck: supple, symmetrical, trachea midline, no adenopathy, thyroid: not enlarged, symmetric, no tenderness/mass/nodules, no carotid bruit and no JVD Lungs: clear to auscultation bilaterally Heart: regular rate and rhythm, S1, S2 normal, no murmur, click, rub or gallop Abdomen: soft, mild tender midline supra umbilical around area of prior midline surgical incision, firm non reducible mass noted. Bowel sounds normal. No masses, no organomegaly Extremities: extremities normal, atraumatic, no cyanosis or edema Pulses: 2+ and symmetric Skin: Skin color, texture, turgor normal. No rashes or lesions Neurologic: Grossly normal Last 24 Hour Vital Signs Date Time Temp Pulse Resp B/P (MAP) Pulse Ox O2 Delivery O2 Flow Rate FiO2 07/29/19 12:33 94 07/29/19 12:15 97.9 94 18 106/56 (73) 92 07/29/19 12:00 97.5 89 22 112/62 92 Nasal Cannula 2.0 28 07/29/19 12:00 2.0 07/29/19 11:50 Nasal Cannula 2.0 07/29/19 11:46 97.5 78 18 110/56 97 Nasal Cannula 2.0 07/29/19 11:16 94 16 99 07/29/19 10:02 84 18 Nasal Cannula 2.0 28 07/29/19 09:58 97.9 82 24 109/42 97 Nasal Cannula 2.0 28 07/29/19 09:46 84 18 90 Nasal Cannula 2.0 28 07/29/19 09:28 97.9 96 19 74 Room Air Laboratory Tests Test 07/29/19 09:31 07/29/19 09:40 Arterial Blood pH 7.344 (7.350-7.450) Arterial Blood Partial Pressure CO2 37.2 mmHg (35.0-45.0) Arterial Blood Partial Pressure O2 52.3 mmHg (75.0-100.0) L Arterial Blood HCO3 19.8 mmol/L (22.0-26.0) L Arterial Blood Oxygen Saturation 82.2 % (95-100) *L Arterial Blood Base Excess -5.3 (-2-2) L Raudel Test Positive White Blood Count 12.5 K/UL (4.8-10.8) H Red Blood Count 4.11 M/UL (4.20-5.40) L Hemoglobin 10.3 G/DL (12.0-16.0) L Hematocrit 33.0 % (37.0-47.0) L Mean Corpuscular Volume 80 FL (80-99) Mean Corpuscular Hemoglobin 25.2 PG (27.0-31.0) L Mean Corpuscular Hemoglobin Concent 31.3 G/DL (32.0-36.0) L Red Cell Distribution Width 16.9 % (11.6-14.8) H Platelet Count 272 K/UL (150-450) Mean Platelet Volume 6.7 FL (6.5-10.1) Neutrophils (%) (Auto) 67.8 % (45.0-75.0) Lymphocytes (%) (Auto) 20.5 % (20.0-45.0) Monocytes (%) (Auto) 7.6 % (1.0-10.0) Eosinophils (%) (Auto) 3.7 % (0.0-3.0) H Basophils (%) (Auto) 0.4 % (0.0-2.0) Sodium Level 137 MMOL/L (136-145) Potassium Level 4.4 MMOL/L (3.5-5.1) Chloride Level 102 MMOL/L (98-107) Carbon Dioxide Level 24 MMOL/L (21-32) Anion Gap 11 mmol/L (5-15) Blood Urea Nitrogen 12 mg/dL (7-18) Creatinine 1.0 MG/DL (0.55-1.30) Estimat Glomerular Filtration Rate mL/min (>60) Glucose Level 144 MG/DL (74-106) H Calcium Level 8.4 MG/DL (8.5-10.1) L Total Bilirubin 0.2 MG/DL (0.2-1.0) Aspartate Amino Transf (AST/SGOT) 25 U/L (15-37) Alanine Aminotransferase (ALT/SGPT) 24 U/L (12-78) Alkaline Phosphatase 93 U/L (46-116) Troponin I 0.013 ng/mL (0.000-0.056) Pro-B-Type Natriuretic Peptide 118 pg/mL (0-125) Total Protein 7.9 G/DL (6.4-8.2) Albumin 2.9 G/DL (3.4-5.0) L Globulin 5.0 g/dL Albumin/Globulin Ratio 0.6 (1.0-2.7) L Microbiology Date/Time Source Procedure Growth Status 07/29/19 09:40 Nasal Nares - Final Complete 07/29/19 09:40 Nasal Nares - Final Complete Height (Feet): 5 Height (Inches): 2.00 Weight (Pounds): 187 Medications Current Medications Medications (Trade) Dose Ordered Sig/Ana Maria Route PRN Reason Start Time Stop Time Status Last Admin Dose Admin Albuterol/ Ipratropium (Albuterol/ Ipratropium) 3 ml Q4H PRN HHN dyspnea 07/29/19 12:00 08/03/19 11:59 Amlodipine Besylate (Norvasc) 10 mg DAILY ORAL 07/30/19 09:00 08/29/19 08:59 Dextrose (Dextrose 50%) 25 ml Q30M PRN IV Hypoglycemia 07/29/19 12:00 08/28/19 11:59 Dextrose (Dextrose 50%) 50 ml Q30M PRN IV Hypoglycemia 07/29/19 12:00 08/28/19 11:59 Gabapentin (Neurontin) 300 mg BEDTIME ORAL 07/29/19 21:00 08/28/19 20:59 Heparin Sodium (Porcine) (Heparin 5000 units/ml) 5,000 units EVERY 12 HOURS SUBQ 07/29/19 21:00 08/28/19 20:59 Insulin Aspart (NovoLOG) BEFORE MEALS AND HS SUBQ 07/29/19 16:30 08/28/19 16:29 Levofloxacin (Levaquin) 250 mg Q24H ORAL 07/30/19 12:00 08/06/19 11:59 Methylprednisolone Sodium Succinate (Solu-MEDROL) 60 mg EVERY 6 HOURS IV 07/29/19 12:00 08/28/19 11:59 07/29/19 13:15 Nitroglycerin (Ntg) 0.4 mg Q5M X 3 DOSES PRN SL Prn Chest Pain 07/29/19 12:00 08/28/19 11:59 Ondansetron HCl (Zofran) 4 mg Q6H PRN IVP Nausea & Vomiting 07/29/19 12:00 08/28/19 11:59 Promethazine HCl/ Codeine (Phenergan with Codeine) 5 ml Q6H PRN ORAL cough 07/29/19 12:00 08/28/19 11:59 Temazepam (Restoril) 15 mg HSPRN PRN ORAL Insomnia 07/29/19 12:00 08/05/19 11:59 Theophylline (Sixto-Dur) 100 mg EVERY 12 HOURS ORAL 07/29/19 21:00 08/28/19 20:59 Assessment/Plan Problem List: (1) Abdominal pain Assessment & Plan: likely related to ventral incisional hernia see below ICD Codes: R10.9 - Unspecified abdominal pain SNOMED: [id number] (2) Ventral incisional hernia Assessment & Plan: mild tender midline supra umbilical around area of prior midline surgical incision, firm non reducible mass noted obese given body habitus unable to completely appreciate exam. tender and states began after episode of coughing recommend CT A/P to better evaluate hernia npo iv fluids respiratory as per pulm trend labs will follow with recommendations thank you ICD Codes: K43.2 - Incisional hernia without obstruction or gangrene SNOMED: [id number] Westley Menjivar Jul 29, 2019 13:37
[2019-07-29] MEDS ORDERED: Piperacillin/Tazobactam 2.25 GM in D5W 55 ML IV SCH (14:00)
[2019-07-29] MEDS ORDERED: BENADRYL25 MG ORAL (14:25)
--- NOTE | 2019-07-29 14:37 | NUR ---
NURSE NOTES: Sputum cx sent to lab
--- NOTE | 2019-07-29 14:52 | NUR ---
NURSE NOTES: Pt asking for Morphine for PRN pain and Tums for PRN acid reflux. RN notified Dr. Sarmiento
--- NOTE | 2019-07-29 14:53 | NUR ---
NURSE NOTES: CT of abdomen and pelvis ordered, pt ate lunch, CT stated procedure will be done tomorrow AM
[2019-07-29] MEDS ORDERED: Tums 500mg ORAL PRN (15:15)
[2019-07-29 15:59] VITALS: BP 106/56
--- NOTE | 2019-07-29 16:00 | History and Physical Report ---
DATE OF ADMISSION: 07/29/2019 APPROXIMATE TIME: 1 p.m. CONSULTANTS: 1. Monika Sarmiento M.D. 2. Panfilo Mahan M.D. 3. Otto Xiong M.D. 4. Zacarias Crystal M.D. 5. Westley Menjivar M.D. CHIEF COMPLAINT: COPD exacerbation, pneumonia, sepsis, hypoxia, and possible abdominal hernia. BRIEF HISTORY: This 74-year-old female, who lives at home, presented with 1 week increased coughing and short of breath, came to [place] [facility], diagnosed with pneumonia, sepsis, COPD exacerbation, hypoxia and admitted to telemetry for further care. Currently, O2 NC, calm, slight short of breath in bed. No complaint otherwise. REVIEW OF SYSTEMS: No chest pain. Slight short of breath. No nausea, vomiting, or diarrhea. PAST MEDICAL HISTORY: Includes CHF, hypertension, COPD, rheumatoid arthritis. PAST SURGICAL HISTORY: Gallbladder. ALLERGIES: Denies. MEDICATIONS: Levofloxacin, amlodipine, gabapentin, heparin, theophylline, insulin aspart, methylprednisolone, Zofran, temazepam. SOCIAL HISTORY: No smoking. No alcohol. No intravenous drug abuse. FAMILY HISTORY: Noncontributory. PHYSICAL EXAMINATION: GENERAL: Calm in bed, oriented x3, slight short of breath. O2 NC in place. VITAL SIGNS: Temperature 97 degrees, pulse 94, respirations 18, blood pressure 106/56. CARDIOVASCULAR: No murmur. LUNGS: Poor exchange. Slight congestion bilaterally. ABDOMEN: Bowel sounds positive. Nondistended. Actually slightly touching out in the infraumbilical area about 3 inch x 3 inch. EXTREMITIES: Show no cyanosis, clubbing, or edema. NEUROLOGIC: The patient moves all extremities, slightly weak. LABORATORY AND DIAGNOSTIC DATA: Labs at this time show white count 12, hemoglobin and hematocrit 10/33, platelets 272. BMP shows glucose 144. Troponin 0.013. Albumin 2.9. ASSESSMENT: 1. COPD exacerbation. 2. Pneumonia. 3. Sepsis. 4. Hypoxia. 5. Possible abdominal hernia. 6. CHF. 7. Hypertension. 8. Anemia. 9. Rheumatoid arthritis. 10. Diabetes possibly. 11. Malnutrition. PLAN: 1. O2, pulmonary treatment. 2. Antibiotics per Infectious Disease. 3. Blood pressure, blood sugar, pain control. 4. Dietary followup. 5. PT, dietary evaluation. Jai Siddiqi D.O. DR: KOLE JOB#: [id number] CC:
[2019-07-29] MEDS: NovoLOG Insulin Flexpen SUBQ SCH ×2 (18:19→20:55)
--- NOTE | 2019-07-29 19:25 | NUR ---
NURSE NOTES: Received pt and report from EVERARDO Mc. Observed pt resting in bed with both eyes open. Pt is A/Ox4. train station agent is in placed; pt is SR. IV site intact, asymptomatic, and patent. Pt is on 2L NC. Bed is in the lowest position and locked. Call light and bedside table is within reach. No signs/symptoms of acute distress noted at this time. Will continue plan of care.
--- NOTE | 2019-07-29 19:33 | NUR ---
HAND-OFF: Report given to EVERARDO Fink.
[2019-07-29 20:00] VITALS: BP 117/67
[2019-07-29] MEDS: Theophylline ER 100mg ORAL SCH (20:53)
[2019-07-29] MEDS: Heparin 5000 units/ml inj SUBQ SCH (20:56)
[2019-07-29] MEDS: Albuterol/Ipratropium 3ml neb HHN PRN (23:49)
[2019-07-30] VITALS (7 sets, daily range): BP systolic 99–145; BP diastolic 60–82
[2019-07-30] MEDS: Solu-MEDROL 125mg Inj IV SCH ×2 (06:19→11:40)
[2019-07-30] MEDS: NovoLOG Insulin Flexpen SUBQ SCH ×4 (06:20→21:28)
--- NOTE | 2019-07-30 07:10 | NUR ---
NURSE NOTES: Received report from EVERARDO Fink. Pt in bed, awake, talkative, discussed plan of care and pending CT scan, no c/o pain, no apparent distress noted, respirations unlabored and regular, bed in lowest position, call light within reach.
[2019-07-30 07:40] LABS: ANION GAP 11 mmol/L (5-15); BLOOD UREA NITROGEN 15 mg/dL (7-18); CALCIUM 8.7 MG/DL (8.5-10.1); CARBON DIOXIDE 24 MMOL/L (21-32); CHLORIDE 100 MMOL/L (98-107); POTASSIUM 3.8 MMOL/L (3.5-5.1); SODIUM 135 MMOL/L (136-145)
--- NOTE | 2019-07-30 07:54 | NUR ---
HAND-OFF: Report given to EVERARDO Mc. Plan of care endorsed.
--- NOTE | 2019-07-30 08:11 | NUR ---
NURSE NOTES: Pt refusing to drink oral contrast for CT of abd and pelv. Notified Dr. Green and CT
[2019-07-30] MEDS: Theophylline ER 100mg ORAL SCH ×2 (08:34→21:34)
[2019-07-30] MEDS: Heparin 5000 units/ml inj SUBQ SCH ×2 (08:36→21:36)
--- NOTE | 2019-07-30 09:24 | General Progress Note ---
Assessment/Plan Problem List: (1) Anemia ICD Codes: D64.9 - Anemia, unspecified SNOMED: 333389433 (2) Ventral incisional hernia ICD Codes: K43.2 - Incisional hernia without obstruction or gangrene SNOMED: 944792614 (3) Sepsis ICD Codes: A41.9 - Sepsis, unspecified organism SNOMED: 89557685 (4) Community acquired pneumonia ICD Codes: J18.9 - Pneumonia, unspecified organism SNOMED: 342519705 (5) Diabetes mellitus ICD Codes: E11.9 - Type 2 diabetes mellitus without complications SNOMED: 01794715 (6) COPD exacerbation ICD Codes: J44.1 - Chronic obstructive pulmonary disease with (acute) exacerbation SNOMED: 708210933 Status: unchanged Assessment/Plan: o2 pulm tx abx pt diet eval cbc bmp am Subjective Constitutional: Reports: weakness Allergies: Coded Allergies: No Known Allergies (Unverified , 06/17/12) All Systems: reviewed and negative except above Subjective awaiting procedure Objective Last 24 Hour Vital Signs Date Time Temp Pulse Resp B/P (MAP) Pulse Ox O2 Delivery O2 Flow Rate FiO2 07/30/19 08:37 101 99/60 07/30/19 08:00 97.9 101 18 99/60 (73) 90 07/30/19 08:00 2.0 07/30/19 08:00 Nasal Cannula 2.0 07/30/19 07:53 101 07/30/19 04:00 2.0 07/30/19 04:00 98.2 100 19 124/82 (96) 97 07/30/19 04:00 97 07/30/19 00:00 97.2 98 19 120/72 (88) 93 07/30/19 00:00 98 07/29/19 23:50 79 20 94 Nasal Cannula 2.0 28 76 18 86 07/29/19 21:00 Nasal Cannula 2.0 07/29/19 20:47 100 18 87 Nasal Cannula 2.0 28 07/29/19 20:00 101 07/29/19 20:00 97.1 101 20 117/67 (84) 93 07/29/19 20:00 2.0 07/29/19 16:00 3.0 07/29/19 15:59 98.2 94 20 106/56 (73) 88 07/29/19 15:41 94 07/29/19 12:33 94 07/29/19 12:15 97.9 94 18 106/56 (73) 92 07/29/19 12:00 97.5 89 22 112/62 92 Nasal Cannula 2.0 28 07/29/19 12:00 2.0 07/29/19 11:50 Nasal Cannula 2.0 07/29/19 11:46 97.5 78 18 110/56 97 Nasal Cannula 2.0 07/29/19 11:16 94 16 99 07/29/19 10:02 84 18 Nasal Cannula 2.0 28 07/29/19 09:58 97.9 82 24 109/42 97 Nasal Cannula 2.0 28 07/29/19 09:46 84 18 90 Nasal Cannula 2.0 28 07/29/19 09:28 97.9 96 19 74 Room Air Intake and Output 07/29/19 07/30/19 19:00 07:00 Intake Total 820 ml Balance 820 ml Intake Oral 820 ml # Voids 1 5 Laboratory Tests 07/29/19 09:31: Arterial Blood pH 7.344L, Arterial Blood Partial Pressure CO2 37.2, Arterial Blood Partial Pressure O2 52.3L, Arterial Blood HCO3 19.8L, Arterial Blood Oxygen Saturation 82.2*L, Arterial Blood Base Excess -5.3L, Raudel Test Positive 07/29/19 09:40: White Blood Count 12.5H, Red Blood Count 4.11L, Hemoglobin 10.3L, Hematocrit 33.0L, Mean Corpuscular Volume 80, Mean Corpuscular Hemoglobin 25.2L, Mean Corpuscular Hemoglobin Concent 31.3L, Red Cell Distribution Width 16.9H, Platelet Count 272, Mean Platelet Volume 6.7, Neutrophils (%) (Auto) 67.8, Lymphocytes (%) (Auto) 20.5, Monocytes (%) (Auto) 7.6, Eosinophils (%) (Auto) 3.7H, Basophils (%) (Auto) 0.4, Sodium Level 137, Potassium Level 4.4, Chloride Level 102, Carbon Dioxide Level 24, Anion Gap 11, Blood Urea Nitrogen 12, Creatinine 1.0, Estimat Glomerular Filtration Rate , Glucose Level 144H, Calcium Level 8.4L, Total Bilirubin 0.2, Aspartate Amino Transf (AST/SGOT) 25, Alanine Aminotransferase (ALT/SGPT) 24, Alkaline Phosphatase 93, Troponin I 0.013, Pro-B-Type Natriuretic Peptide 118, Total Protein 7.9, Albumin 2.9L, Globulin 5.0, Albumin/Globulin Ratio 0.6L 07/30/19 05:57: White Blood Count [Pending], Red Blood Count [Pending], Hemoglobin [Pending], Hematocrit [Pending], Mean Corpuscular Volume [Pending], Mean Corpuscular Hemoglobin [Pending], Mean Corpuscular Hemoglobin Concent [Pending], Red Cell Distribution Width [Pending], Platelet Count [Pending], Mean Platelet Volume [ Pending], Neutrophils (%) (Auto) [Pending], Lymphocytes (%) (Auto) [Pending], Monocytes (%) (Auto) [Pending], Eosinophils (%) (Auto) [Pending], Basophils (%) (Auto) [Pending], Sodium Level 135L, Potassium Level 3.8, Chloride Level 100, Carbon Dioxide Level 24, Anion Gap 11, Blood Urea Nitrogen 15, Creatinine 1.0, Estimat Glomerular Filtration Rate , Glucose Level 293#H, Calcium Level 8.7 Height (Feet): 5 Height (Inches): 2.00 Weight (Pounds): 190 EENT: normal ENT inspection Neck: normal alignment Cardiovascular: normal peripheral pulses, normal rate, regular rhythm Respiratory/Chest: chest wall non-tender, decreased breath sounds Abdomen: normal bowel sounds, non tender, soft Extremities: normal inspection Edema: no edema noted Arm (L), no edema noted Arm (R), no edema noted Leg (L), no edema noted Leg (R), no edema noted Pedal (L), no edema noted Pedal (R), no edema noted Generalized Neurologic: motor weakness Skin: normal pigmentation, warm/dry Jai Siddiqi DO Jul 30, 2019 09:24
--- NOTE | 2019-07-30 10:04 | NUR ---
PT NOTE Received MD order for PT evaluation. Attempted to see patient, patient declining to participate with PT evaluation today, requesting that therapist return tomorrow. Jesusita MCGEE notified, will follow up tomorrow per patient request.
--- NOTE | 2019-07-30 10:41 | Infectious Diseases Prog Note ---
Assessment/Plan Assessment/Plan Assessment: COPD exacerbation URI syndrome -influenza sc neg -CXR: Increased bilateral interstitial congestion, since prior exam 07/21/2019 Pulmonary congestion Afebrile Mild leukocytosis COPD HTN DM2 Hepatitis B HLD former smoker s/p cholecystectomy obesity Plan: -Cont Levaquin#2 for COPD exacerbation -07/21 SP Ceftriaxone #4, Azithromycin #4 - 07/18/19 S/P Zosyn #1 -f/u cx -Monitor CBC/CMP, temperatures -aspiration precautions Thank you for consulting [facility]. Will continue to follow along with you. Discussed with RN. Subjective Allergies: Coded Allergies: No Known Allergies (Unverified , 06/17/12) Subjective afebrile at 2l NC CBC pending Objective Vital Signs Last 24 Hour Vital Signs Date Time Temp Pulse Resp B/P (MAP) Pulse Ox O2 Delivery O2 Flow Rate FiO2 07/30/19 08:37 101 99/60 07/30/19 08:00 97.9 101 18 99/60 (73) 90 07/30/19 08:00 2.0 07/30/19 08:00 Nasal Cannula 2.0 07/30/19 07:53 101 07/30/19 04:00 2.0 07/30/19 04:00 98.2 100 19 124/82 (96) 97 07/30/19 04:00 97 07/30/19 00:00 97.2 98 19 120/72 (88) 93 07/30/19 00:00 98 07/29/19 23:50 79 20 94 Nasal Cannula 2.0 28 76 18 86 07/29/19 21:00 Nasal Cannula 2.0 07/29/19 20:47 100 18 87 Nasal Cannula 2.0 28 07/29/19 20:00 101 07/29/19 20:00 97.1 101 20 117/67 (84) 93 07/29/19 20:00 2.0 07/29/19 16:00 3.0 07/29/19 15:59 98.2 94 20 106/56 (73) 88 07/29/19 15:41 94 07/29/19 12:33 94 07/29/19 12:15 97.9 94 18 106/56 (73) 92 07/29/19 12:00 97.5 89 22 112/62 92 Nasal Cannula 2.0 28 07/29/19 12:00 2.0 07/29/19 11:50 Nasal Cannula 2.0 07/29/19 11:46 97.5 78 18 110/56 97 Nasal Cannula 2.0 07/29/19 11:16 94 16 99 Height (Feet): 5 Height (Inches): 2.00 Weight (Pounds): 190 Objective General: Awake and alert, uncomfortable appearing, tachypneic, hypoxic HEENT: NC/AT. EOMI. no stridor. Cardiovascular: RRR. S1 and S2 normal. No murmur appreciated Resp: Increased work of breathing, tachypnea. Bilateral inspiratory expiratory wheezes with coarse crackles at the bases. Saturating 77% on room air. Abdomen: Abdomen is soft, nondistended. Nontender Skin: Abdominal surgical scars are clean dry and intact. Otherwise no rash, breakdown appreciated on the exposed skin MSK: Normal tone and bulk. Moving all extremities. No obvious deformity. Neuro: Awake and alert. Mentating appropriately. Microbiology Date/Time Source Procedure Growth Status 07/29/19 09:40 Nasal Nares - Final Complete 07/29/19 09:40 Nasal Nares - Final Complete Laboratory Tests Test 07/30/19 05:57 White Blood Count Pending Red Blood Count Pending Hemoglobin Pending Hematocrit Pending Mean Corpuscular Volume Pending Mean Corpuscular Hemoglobin Pending Mean Corpuscular Hemoglobin Concent Pending Red Cell Distribution Width Pending Platelet Count Pending Mean Platelet Volume Pending Neutrophils (%) (Auto) Pending Lymphocytes (%) (Auto) Pending Monocytes (%) (Auto) Pending Eosinophils (%) (Auto) Pending Basophils (%) (Auto) Pending Sodium Level 135 MMOL/L (136-145) L Potassium Level 3.8 MMOL/L (3.5-5.1) Chloride Level 100 MMOL/L (98-107) Carbon Dioxide Level 24 MMOL/L (21-32) Anion Gap 11 mmol/L (5-15) Blood Urea Nitrogen 15 mg/dL (7-18) Creatinine 1.0 MG/DL (0.55-1.30) Estimat Glomerular Filtration Rate mL/min (>60) Glucose Level 293 MG/DL (74-106) #H Calcium Level 8.7 MG/DL (8.5-10.1) Current Medications Medications (Trade) Dose Ordered Sig/Ana Maria Route PRN Reason Start Time Stop Time Status Last Admin Dose Admin Albuterol/ Ipratropium (Albuterol/ Ipratropium) 3 ml Q4H PRN HHN dyspnea 07/29/19 12:00 08/03/19 11:59 07/29/19 23:49 Amlodipine Besylate (Norvasc) 10 mg DAILY ORAL 07/30/19 09:00 08/29/19 08:59 Calcium Carbonate (Tums) 500 mg Q3H PRN ORAL ACID REFLUX 07/29/19 15:15 08/28/19 15:14 Dextrose (Dextrose 50%) 25 ml Q30M PRN IV Hypoglycemia 07/29/19 12:00 08/28/19 11:59 Dextrose (Dextrose 50%) 50 ml Q30M PRN IV Hypoglycemia 07/29/19 12:00 08/28/19 11:59 Gabapentin (Neurontin) 300 mg BEDTIME ORAL 07/29/19 21:00 08/28/19 20:59 07/29/19 20:53 Heparin Sodium (Porcine) (Heparin 5000 units/ml) 5,000 units EVERY 12 HOURS SUBQ 07/29/19 21:00 08/28/19 20:59 07/30/19 08:36 Insulin Aspart (NovoLOG) BEFORE MEALS AND HS SUBQ 07/29/19 16:30 08/28/19 16:29 07/30/19 06:20 Levofloxacin (Levaquin) 250 mg Q24H ORAL 07/30/19 12:00 08/06/19 11:59 Methylprednisolone Sodium Succinate (Solu-MEDROL) 60 mg EVERY 6 HOURS IV 07/29/19 12:00 08/28/19 11:59 07/30/19 06:19 Morphine Sulfate (Morphine Sulfate) 2 mg Q4H PRN IVP For Pain 07/29/19 15:15 08/05/19 15:14 Nitroglycerin (Ntg) 0.4 mg Q5M X 3 DOSES PRN SL Prn Chest Pain 07/29/19 12:00 08/28/19 11:59 Ondansetron HCl (Zofran) 4 mg Q6H PRN IVP Nausea & Vomiting 07/29/19 12:00 08/28/19 11:59 Promethazine HCl/ Codeine (Phenergan with Codeine) 5 ml Q6H PRN ORAL cough 07/29/19 12:00 08/28/19 11:59 Temazepam (Restoril) 15 mg HSPRN PRN ORAL Insomnia 07/29/19 12:00 08/05/19 11:59 Theophylline (Sixto-Dur) 100 mg EVERY 12 HOURS ORAL 07/29/19 21:00 08/28/19 20:59 07/30/19 08:34 Aleksandra Vale M.D. Jul 30, 2019 10:41
--- NOTE | 2019-07-30 11:32 | NUR ---
*-* INSURANCE *-* ALL CLINICALS AND REVIEWS HAVE BEEN FAXED TO: [employer] NO COAT EXAMINER ASSIGNED AT THIS TIME PLEASE FAX THE REVIEW/CLINICAL P- [phone] F- [phone]...REVIEW/CLINICAL
--- NOTE | 2019-07-30 12:06 | Diagnostic Imaging Report ---
INDICATION: Abdominal pain TECHNIQUE: Continuous helical transaxial imaging of the abdomen and pelvis was obtained from the lung bases to the pubic symphysis. No intravenous contrast was administered. Coronal 2-D reformats were also obtained. Automatic Exposure Control was utilized. Total Dose length Product (DLP): 1688.[address] Dose Index Volume (CTDIvol): 31.6 mGy Comparison: none FINDINGS: Lungs: There is moderate bronchiectasis demonstrated at both lung bases. This is associated with some reticular densities that likely represent fibrosis along the peribronchial regions.. Liver: Unremarkable Gallbladder/biliary system: Cholecystectomy noted. No obvious biliary ductal dilatation identified.. Spleen: Unremarkable Pancreas: Unremarkable Kidneys: Multiple bilateral hypodensities are demonstrated. These may be cystic but indeterminate on the basis of the current noncontrast examination.. Adrenal glands: There is suggestion of small adrenal adenomas within the left adrenal gland. 1 cm and 1.3 cm lesions are noted in the left adrenal gland. Bilateral adrenal calcifications are also present. Bowel: Unremarkable. Appendix is not seen but there are no secondary signs of acute appendicitis. Bladder: Unremarkable Aorta/IVC: Moderate to severe calcification of the abdominal aorta and iliac arteries demonstrated bilaterally. There may be significant stenosis at the caudal aspect of the aorta and bifurcation. Peritoneum: There is a fat-containing supra-umbilical hernia measuring about 5 cm transversely. A smaller umbilical hernia also noted measuring about 2 cm. There is a right inguinal hernia and a smaller left inguinal hernia containing fat. There is no free fluid. The uterus is present. Ovaries are not well seen.. Bones: Multilevel hypertrophied facets noted. Osteopenia noted. IMPRESSION: Moderate bronchiectasis within the visualized lung bases. Status post cholecystectomy Bilateral renal hypodensities. Cystic versus solid. Suggestion of nodularity of the left adrenal gland suggestion of adrenal adenomas. Graph severe arterial vascular disease involving the aorta and iliac arteries. Ventral abdominal wall hernias as described above. Bilateral inguinal hernias containing fat. Multilevel lumbar facet arthropathy Note: Evaluation of solid organs is limited on non contrast imaging. The CT scanner at [facility] is accredited by the [employer] and the scans are performed using dose optimization techniques as appropriate to a performed exam including Automatic Exposure control.
--- NOTE | 2019-07-30 12:34 | Pulmonology Progress Note ---
Assessment/Plan Problems: (1) COPD exacerbation (2) Chronic liver disease (3) COPD (chronic obstructive pulmonary disease) Assessment/Plan respiratory treatment check sputum, still pending iv abx iv steroids, taper to QD sputum induction f/u liver enzymes dvt prophylaxis. Subjective ROS Limited/Unobtainable: No Constitutional: Reports: no symptoms HEENT: Repors: no symptoms Respiratory: Reports: no symptoms Allergies: Coded Allergies: No Known Allergies (Unverified , 06/17/12) Objective Last 24 Hour Vital Signs Date Time Temp Pulse Resp B/P (MAP) Pulse Ox O2 Delivery O2 Flow Rate FiO2 07/30/19 12:00 2.0 07/30/19 12:00 97.7 100 18 103/60 (74) 94 07/30/19 08:37 101 99/60 07/30/19 08:00 97.9 101 18 99/60 (73) 90 07/30/19 08:00 2.0 07/30/19 08:00 Nasal Cannula 2.0 07/30/19 07:53 101 07/30/19 04:00 2.0 07/30/19 04:00 98.2 100 19 124/82 (96) 97 07/30/19 04:00 97 07/30/19 00:00 97.2 98 19 120/72 (88) 93 07/30/19 00:00 98 07/29/19 23:50 79 20 94 Nasal Cannula 2.0 28 76 18 86 07/29/19 21:00 Nasal Cannula 2.0 07/29/19 20:47 100 18 87 Nasal Cannula 2.0 28 07/29/19 20:00 101 07/29/19 20:00 97.1 101 20 117/67 (84) 93 07/29/19 20:00 2.0 07/29/19 16:00 3.0 07/29/19 15:59 98.2 94 20 106/56 (73) 88 07/29/19 15:41 94 Intake and Output 07/29/19 07/30/19 19:00 07:00 Intake Total 820 ml Balance 820 ml Intake Oral 820 ml # Voids 1 5 General Appearance: WD/WN HEENT: normocephalic, atraumatic Respiratory/Chest: chest wall non-tender, lungs clear, normal breath sounds Breasts: no masses Cardiovascular: normal peripheral pulses, normal rate Abdomen: normal bowel sounds, soft, non tender Genitourinary: normal external genitalia Extremities: no cyanosis Skin: no rash Neurologic/Psychiatric: pbx wire chief II-XII grossly normal Microbiology Date/Time Source Procedure Growth Status 07/29/19 09:40 Nasal Nares - Final Complete 07/29/19 09:40 Nasal Nares - Final Complete Laboratory Tests 07/30/19 05:57: White Blood Count [Pending], Red Blood Count [Pending], Hemoglobin [Pending], Hematocrit [Pending], Mean Corpuscular Volume [Pending], Mean Corpuscular Hemoglobin [Pending], Mean Corpuscular Hemoglobin Concent [Pending], Red Cell Distribution Width [Pending], Platelet Count [Pending], Mean Platelet Volume [ Pending], Neutrophils (%) (Auto) [Pending], Lymphocytes (%) (Auto) [Pending], Monocytes (%) (Auto) [Pending], Eosinophils (%) (Auto) [Pending], Basophils (%) (Auto) [Pending], Sodium Level 135L, Potassium Level 3.8, Chloride Level 100, Carbon Dioxide Level 24, Anion Gap 11, Blood Urea Nitrogen 15, Creatinine 1.0, Estimat Glomerular Filtration Rate , Glucose Level 293#H, Calcium Level 8.7 Current Medications Medications (Trade) Dose Ordered Sig/Ana Maria Route PRN Reason Start Time Stop Time Status Last Admin Dose Admin Albuterol/ Ipratropium (Albuterol/ Ipratropium) 3 ml Q4H PRN HHN dyspnea 07/29/19 12:00 08/03/19 11:59 07/29/19 23:49 Amlodipine Besylate (Norvasc) 10 mg DAILY ORAL 07/30/19 09:00 08/29/19 08:59 Calcium Carbonate (Tums) 500 mg Q3H PRN ORAL ACID REFLUX 07/29/19 15:15 08/28/19 15:14 Dextrose (Dextrose 50%) 25 ml Q30M PRN IV Hypoglycemia 07/29/19 12:00 08/28/19 11:59 Dextrose (Dextrose 50%) 50 ml Q30M PRN IV Hypoglycemia 07/29/19 12:00 08/28/19 11:59 Gabapentin (Neurontin) 300 mg BEDTIME ORAL 07/29/19 21:00 08/28/19 20:59 07/29/19 20:53 Heparin Sodium (Porcine) (Heparin 5000 units/ml) 5,000 units EVERY 12 HOURS SUBQ 07/29/19 21:00 08/28/19 20:59 07/30/19 08:36 Insulin Aspart (NovoLOG) BEFORE MEALS AND HS SUBQ 07/29/19 16:30 08/28/19 16:29 07/30/19 11:42 Levofloxacin (Levaquin) 250 mg Q24H ORAL 07/30/19 12:00 08/06/19 11:59 07/30/19 11:40 Methylprednisolone Sodium Succinate (Solu-MEDROL) 60 mg EVERY 6 HOURS IV 07/29/19 12:00 08/28/19 11:59 07/30/19 11:40 Morphine Sulfate (Morphine Sulfate) 2 mg Q4H PRN IVP For Pain 07/29/19 15:15 08/05/19 15:14 Nitroglycerin (Ntg) 0.4 mg Q5M X 3 DOSES PRN SL Prn Chest Pain 07/29/19 12:00 08/28/19 11:59 Ondansetron HCl (Zofran) 4 mg Q6H PRN IVP Nausea & Vomiting 07/29/19 12:00 08/28/19 11:59 Promethazine HCl/ Codeine (Phenergan with Codeine) 5 ml Q6H PRN ORAL cough 07/29/19 12:00 08/28/19 11:59 Temazepam (Restoril) 15 mg HSPRN PRN ORAL Insomnia 07/29/19 12:00 08/05/19 11:59 Theophylline (Sixto-Dur) 100 mg EVERY 12 HOURS ORAL 07/29/19 21:00 08/28/19 20:59 07/30/19 08:34 Monika Sarmiento MD Jul 30, 2019 12:34
[2019-07-30 12:56] LABS: HEMATOCRIT 35.3 % (37.0-47.0); HEMOGLOBIN 10.4 G/DL (12.0-16.0); MEAN CORPUSCULAR VOLUME 83 FL (80-99); RED BLOOD COUNT 4.25 M/UL (4.20-5.40); RED CELL DISTRIBUTION WIDTH 19.2 % (11.6-14.8); WHITE BLOOD COUNT 12.3 K/UL (4.8-10.8)
[2019-07-30 12:57] LABS: LYMPHOCYTES % (AUTO) 15.5 % (20.0-45.0); MONOCYTES % (AUTO) 3.7 % (1.0-10.0); NEUTROPHILS % (AUTO) 79.1 % (45.0-75.0); PLATELET COUNT 292 K/UL (150-450)
[2019-07-30 12:58] LABS: BASOPHILS % (AUTO) 0.2 % (0.0-2.0)
--- NOTE | 2019-07-30 14:00 | Surgery Progress Note ---
Surgery Progress Note Subjective Additional Comments ct noted multiple ventral fat containing hernias tolerating diet pain improved only happens with cough no n/v/f/c passing flatus Objective Last 24 Hour Vital Signs Date Time Temp Pulse Resp B/P (MAP) Pulse Ox O2 Delivery O2 Flow Rate FiO2 07/30/19 12:00 2.0 07/30/19 12:00 97.7 100 18 103/60 (74) 94 07/30/19 11:52 98 07/30/19 08:37 101 99/60 07/30/19 08:00 97.9 101 18 99/60 (73) 90 07/30/19 08:00 2.0 07/30/19 08:00 Nasal Cannula 2.0 07/30/19 07:53 101 07/30/19 04:00 2.0 07/30/19 04:00 98.2 100 19 124/82 (96) 97 07/30/19 04:00 97 07/30/19 00:00 97.2 98 19 120/72 (88) 93 07/30/19 00:00 98 07/29/19 23:50 79 20 94 Nasal Cannula 2.0 28 76 18 86 07/29/19 21:00 Nasal Cannula 2.0 07/29/19 20:47 100 18 87 Nasal Cannula 2.0 28 07/29/19 20:00 101 07/29/19 20:00 97.1 101 20 117/67 (84) 93 07/29/19 20:00 2.0 07/29/19 16:00 3.0 07/29/19 15:59 98.2 94 20 106/56 (73) 88 07/29/19 15:41 94 I&O Intake and Output 07/29/19 07/30/19 19:00 07:00 Intake Total 820 ml Balance 820 ml Intake Oral 820 ml # Voids 1 5 Cardiovascular: RSR Respiratory: clear Abdomen: soft, flat, non-tender, present bowel sounds Extremities: no edema, no tenderness, no cyanosis Laboratory Tests Test 07/30/19 05:57 White Blood Count 12.3 K/UL (4.8-10.8) H Red Blood Count 4.25 M/UL (4.20-5.40) Hemoglobin 10.4 G/DL (12.0-16.0) L Hematocrit 35.3 % (37.0-47.0) L Mean Corpuscular Volume 83 FL (80-99) Mean Corpuscular Hemoglobin 24.5 PG (27.0-31.0) L Mean Corpuscular Hemoglobin Concent 29.5 G/DL (32.0-36.0) L Red Cell Distribution Width 19.2 % (11.6-14.8) H Platelet Count 292 K/UL (150-450) Mean Platelet Volume 10.8 FL (6.5-10.1) H Neutrophils (%) (Auto) 79.1 % (45.0-75.0) H Lymphocytes (%) (Auto) 15.5 % (20.0-45.0) L Monocytes (%) (Auto) 3.7 % (1.0-10.0) Eosinophils (%) (Auto) 0.0 % (0.0-3.0) Basophils (%) (Auto) 0.2 % (0.0-2.0) Sodium Level 135 MMOL/L (136-145) L Potassium Level 3.8 MMOL/L (3.5-5.1) Chloride Level 100 MMOL/L (98-107) Carbon Dioxide Level 24 MMOL/L (21-32) Anion Gap 11 mmol/L (5-15) Blood Urea Nitrogen 15 mg/dL (7-18) Creatinine 1.0 MG/DL (0.55-1.30) Estimat Glomerular Filtration Rate mL/min (>60) Glucose Level 293 MG/DL (74-106) #H Calcium Level 8.7 MG/DL (8.5-10.1) Plan Problems: (1) Abdominal pain Assessment & Plan: likely related to ventral incisional hernia see below (2) Ventral incisional hernia Assessment & Plan: mild tender midline supra umbilical around area of prior midline surgical incision, firm non reducible mass noted obese given body habitus unable to completely appreciate exam. tender and states began after episode of coughing There is a fat-containing supra-umbilical hernia measuring about 5 cm transversely. A smaller umbilical hernia also noted measuring about 2 cm. There is a right inguinal hernia and a smaller left inguinal hernia containing fat. There is no free fluid. diet as tolerated discussed with patient. no interest in elective hernia repair at this time outpatient follow up respiratory as per pulm trend labs will follow with recommendations thank you Westley Menjivar Jul 30, 2019 14:00
--- NOTE | 2019-07-30 14:08 | NUR ---
CASE MANAGEMENT:REVIEW 74 YR OLD FEMALE PRESENTED TO ER FROM HOME CC: SOB SI: COPD. ACUTE HYPOXIC RESPIRATORY FAILURE 97.8 96 19 109/42 74% ON RA WBC+12.5 PH-7.34 PO2-52.3 HCO3-19.8 SAT-82% IS: PLACED ON 2L/NC IV SOLUMEDROL LEVAQUIN PO X1 DUONEB HHN X3 CXR : TO TELEMETRY
--- NOTE | 2019-07-30 17:20 | Consultation ---
Consult Note Consult Note asked to eval at the request of Dr Siddiqi for BP & Fluid management HPI: 74-year-old female with history of COPD, non-oxygen dependent, hypertension , hyperlipidemia, hepatitis, obesity presents for evaluation of shortness of breath. Patient was admitted to the hospital within the past 2 weeks for pneumonia and COPD exacerbation. She was feeling well for a few days after which she developed upper respiratory symptoms including rhinorrhea, sore throat and a productive cough. Sore throat and nasal congestion have resolved though her cough is persistent. She has noticed worsening shortness of breath over the past 2 days. She is compliant with her albuterol therapy and finished her antibiotics after hospital admissions. States she does not take steroids because of her prior hepatitis. Does not use oxygen at home. She was scheduled to see her PMD today however she became acutely short of breath while walking to the car this morning. Reports that productive cough is not really changed over the past 5 days. Denies fever, chills, chest pain, palpitations, vomiting, diarrhea, myalgias. She is a former smoker but quit a few years ago. Denies history of CHF.i PMH: COPD, hypertension, hyperlipidemia, hepatitis B, obesity PSH: Cholecystectomy Allergies: None reported Social Hx: Former smoker, quit 2 years ago. No Known Allergies (Unverified , 06/17/12) Past Medical History: No History, Except For Hx Cardiac Problems: Yes Hx Hypertension: Yes Hx COPD: Yes Hx Diabetes: Yes interviewed examined on O2 coughing has scattered wheez and ronchi Assessment/Plan Low BP Mild Low Na COPD- exac HTN now BP low DM2 Hepatitis B HLD former smoker s/p cholecystectomy obesity adjust BP meds taper steroids as possible Anemia richardson check UA Zacarias Crystal MD Jul 30, 2019 17:20
[2019-07-30] MEDS ORDERED: Docusate 100mg cap ORAL SCH (18:00)
[2019-07-30] MEDS: Docusate 100mg cap ORAL SCH (18:26)
--- NOTE | 2019-07-30 19:27 | NUR ---
NURSE NOTES: received patient from EVERARDO Mc, in stable condition, AOx4, denies pain, sitting at the of the bed watching tv, on 2 L O2 n/c, IV on right hand g22 asymptomatic, intact, patent, bed low and locked , call light within reach, will continue to monitor and reassess.
--- NOTE | 2019-07-30 19:27 | NUR ---
HAND-OFF: Report given to EVERARDO Sinha. Pt stable.
[2019-07-30 20:25] LABS: APPEARANCE,URINE CLEAR; BILIRUBIN, URINE NEGATIVE (NEGATIVE); COLOR,URINE PALE YELLOW; GLUCOSE, URINE (UA) 4+ (NEGATIVE); KETONES,URINE 1+ (NEGATIVE); NITRITE,URINE NEGATIVE (NEGATIVE); PH,URINE 6 (4.5-8.0); PROTEIN,URINE 3+ (NEGATIVE); UROBILINOGEN,URINE NORMAL MG/DL (0.0-1.0)
[2019-07-30 20:26] LABS: LEUKOCYTE ESTERASE ,URINE NEGATIVE (NEGATIVE)
[2019-07-30] MEDS: Albuterol/Ipratropium 3ml neb HHN PRN (20:51)
[2019-07-31] VITALS: BP 127/52
[2019-07-31 04:00] VITALS: BP 121/64
[2019-07-31] MEDS: NovoLOG Insulin Flexpen SUBQ SCH ×4 (06:36→21:49)
--- NOTE | 2019-07-31 07:20 | NUR ---
NURSE NOTES: Received report from EVERARDO Sinha. The patient is resting on the bed without acute distress or shortness of breath. The patient's bed in the lowest position, call light in reach, and fall and aspiration precaution reinforced. IV site intact and patent. Oxygen therapy per order. Will continue plan of care.
--- NOTE | 2019-07-31 07:28 | NUR ---
HAND-OFF: Report given to Gisela MCGEE, patient in stable condition, plan of care endorsed.
[2019-07-31 08:00] VITALS: BP 102/60
[2019-07-31 08:08] LABS: HEMATOCRIT 31.6 % (37.0-47.0); MEAN CORPUSCULAR VOLUME 81 FL (80-99); PLATELET COUNT 262 K/UL (150-450); RED BLOOD COUNT 3.92 M/UL (4.20-5.40); RED CELL DISTRIBUTION WIDTH 17.2 % (11.6-14.8)
[2019-07-31 08:19] LABS: WHITE BLOOD COUNT 23.5 K/UL (4.8-10.8)
--- NOTE | 2019-07-31 08:30 | NUR ---
NURSE NOTES: Notified Dr. Vale regarding uptrend of WBC from 12.[address] Vale, no new order. Will closely monitor the patient. Will continue plan of care.
[2019-07-31] MEDS: Docusate 100mg cap ORAL SCH ×3 (08:41→17:12)
[2019-07-31] MEDS: Theophylline ER 100mg ORAL SCH ×2 (08:42→21:45)
[2019-07-31] MEDS: Heparin 5000 units/ml inj SUBQ SCH ×2 (08:42→21:47)
[2019-07-31] MEDS: Promethazine/Codeine 5ml UD ORAL PRN ×2 (08:43→21:56)
[2019-07-31 08:46] LABS: ALANINE AMINOTRANSFERASE 20 U/L (12-78); ALBUMIN 2.8 G/DL (3.4-5.0); ALBUMIN/GLOBULIN RATIO 0.6 (1.0-2.7); ALKALINE PHOSPHATASE 82 U/L (46-116); ANION GAP 11 mmol/L (5-15); ASPARTATE AMINO TRANSFERASE 15 U/L (15-37); BILIRUBIN,TOTAL 0.2 MG/DL (0.2-1.0); BLOOD UREA NITROGEN 28 mg/dL (7-18); CALCIUM 8.7 MG/DL (8.5-10.1); CARBON DIOXIDE 22 MMOL/L (21-32); CHLORIDE 102 MMOL/L (98-107); CREATININE 1.1 MG/DL (0.55-1.30); PHOSPHORUS 3.3 MG/DL (2.5-4.9); POTASSIUM 4.1 MMOL/L (3.5-5.1); SODIUM 135 MMOL/L (136-145)
[2019-07-31] MEDS ORDERED: Solu-MEDROL 125mg Inj IV SCH (09:00)
--- NOTE | 2019-07-31 09:44 | Infectious Diseases Prog Note ---
Assessment/Plan Assessment/Plan Assessment: COPD exacerbation URI syndrome -influenza sc neg -CXR: Increased bilateral interstitial congestion, since prior exam 07/21/2019 -spc x normal resp luisana (prelim) Pulmonary congestion Afebrile Leukocytosis, increased (on high dose sterodis) -u/a neg; ucx NTD -07/30 CT abd/p: Moderate bronchiectasis within the visualized lung bases. Status post cholecystectomy. Bilateral renal hypodensities. Cystic versus solid. Suggestion of nodularity of the left adrenal gland suggestion of adrenal adenomas. Graph severe arterial vascular disease involving the aorta and iliac arteries. Ventral abdominal wall hernias as described above. Bilateral inguinal hernias containing fat. Multilevel lumbar facet arthropathy COPD HTN DM2 Hepatitis B HLD former smoker s/p cholecystectomy obesity Plan: -Cont Levaquin#3/5 for COPD exacerbation -07/21 SP Ceftriaxone #4, Azithromycin #4 - 07/18/19 S/P Zosyn #1 -f/u cx -Monitor CBC/CMP, temperatures -aspiration precautions Thank you for consulting [facility]. Will continue to follow along with you. Discussed with RN. Subjective Allergies: Coded Allergies: No Known Allergies (Unverified , 06/17/12) Subjective afebrile at 2l NC wbc increased, on high dose steroids Objective Vital Signs Last 24 Hour Vital Signs Date Time Temp Pulse Resp B/P (MAP) Pulse Ox O2 Delivery O2 Flow Rate FiO2 07/31/19 08:41 98 102/60 07/31/19 04:00 97.8 72 19 121/64 (83) 91 07/31/19 04:00 54 07/31/19 00:00 97.8 72 16 127/52 (77) 90 07/31/19 00:00 89 07/30/19 21:00 Nasal Cannula 2.0 07/30/19 20:54 86 16 91 Nasal Cannula 2.0 28 07/30/19 20:51 88 18 98 Nasal Cannula 2.0 28 86 16 91 07/30/19 20:00 98 07/30/19 20:00 97.5 86 16 102/63 (76) 95 07/30/19 16:00 2.0 07/30/19 15:38 97.5 101 18 108/60 (76) 95 07/30/19 15:13 80 07/30/19 12:00 2.0 07/30/19 12:00 97.7 100 18 103/60 (74) 94 07/30/19 11:52 98 Height (Feet): 5 Height (Inches): 2.00 Weight (Pounds): 190 Objective General: Awake and alert, uncomfortable appearing, tachypneic, hypoxic HEENT: NC/AT. EOMI. no stridor. Cardiovascular: RRR. S1 and S2 normal. No murmur appreciated Resp: Increased work of breathing, tachypnea. Bilateral inspiratory expiratory wheezes with coarse crackles at the bases. Saturating 77% on room air. Abdomen: Abdomen is soft, nondistended. Nontender Skin: Abdominal surgical scars are clean dry and intact. Otherwise no rash, breakdown appreciated on the exposed skin MSK: Normal tone and bulk. Moving all extremities. No obvious deformity. Neuro: Awake and alert. Mentating appropriately. Microbiology Date/Time Source Procedure Growth Status 07/29/19 14:25 Sputum Gram Stain Pending Resulted 07/29/19 14:25 Sputum Sputum Culture - Preliminary NORMAL UPPER RESPIRATORY LUISANA PRESENT Resulted 07/29/19 10:46 Nasal Nares MRSA Culture - Final NO METHICILLIN RESISTANT STAPH AUREUS... Complete 07/29/19 09:40 Nasal Nares - Final Complete 07/29/19 09:40 Nasal Nares - Final Complete 07/30/19 18:30 Urine,Clean Catch Urine Culture - Preliminary NO GROWTH Resulted Laboratory Tests Test 07/30/19 18:30 07/31/19 06:24 Urine Color Pale yellow Urine Appearance Clear Urine pH 6 (4.5-8.0) Urine Specific [place] 1.015 (1.005-1.035) Urine Protein 3+ (NEGATIVE) H Urine Glucose (UA) 4+ (NEGATIVE) H Urine Ketones 1+ (NEGATIVE) H Urine Blood 1+ (NEGATIVE) H Urine Nitrite Negative (NEGATIVE) Urine Bilirubin Negative (NEGATIVE) Urine Urobilinogen Normal MG/DL (0.0-1.0) Urine Leukocyte Esterase Negative (NEGATIVE) Urine RBC 2-4 /HPF (0 - 2) H Urine WBC 2-4 /HPF (0 - 2) Urine Squamous Epithelial Cells Few /LPF (NONE/OCC) Urine Bacteria Few /HPF (NONE) Urine Yeast Few /HPF (NONE) H White Blood Count 23.5 K/UL (4.8-10.8) #*H Red Blood Count 3.92 M/UL (4.20-5.40) L Hemoglobin 10.0 G/DL (12.0-16.0) L Hematocrit 31.6 % (37.0-47.0) L Mean Corpuscular Volume 81 FL (80-99) Mean Corpuscular Hemoglobin 25.5 PG (27.0-31.0) L Mean Corpuscular Hemoglobin Concent 31.6 G/DL (32.0-36.0) L Red Cell Distribution Width 17.2 % (11.6-14.8) H Platelet Count 262 K/UL (150-450) Mean Platelet Volume 7.1 FL (6.5-10.1) Neutrophils (%) (Auto) % (45.0-75.0) Lymphocytes (%) (Auto) % (20.0-45.0) Monocytes (%) (Auto) % (1.0-10.0) Eosinophils (%) (Auto) % (0.0-3.0) Basophils (%) (Auto) % (0.0-2.0) Neutrophils % (Manual) Pending Lymphocytes % (Manual) Pending Platelet Estimate Pending Platelet Morphology Pending Sodium Level 135 MMOL/L (136-145) L Potassium Level 4.1 MMOL/L (3.5-5.1) Chloride Level 102 MMOL/L (98-107) Carbon Dioxide Level 22 MMOL/L (21-32) Anion Gap 11 mmol/L (5-15) Blood Urea Nitrogen 28 mg/dL (7-18) H Creatinine 1.1 MG/DL (0.55-1.30) Estimat Glomerular Filtration Rate mL/min (>60) Glucose Level 312 MG/DL (74-106) H Hemoglobin A1c 7.6 % (4.3-6.0) H Uric Acid 7.1 MG/DL (2.6-7.2) Calcium Level 8.7 MG/DL (8.5-10.1) Phosphorus Level 3.3 MG/DL (2.5-4.9) Magnesium Level 2.0 MG/DL (1.8-2.4) Total Bilirubin 0.2 MG/DL (0.2-1.0) Aspartate Amino Transf (AST/SGOT) 15 U/L (15-37) Alanine Aminotransferase (ALT/SGPT) 20 U/L (12-78) Alkaline Phosphatase 82 U/L (46-116) C-Reactive Protein, Quantitative < 0.4 mg/dL (0.00-0.90) Pro-B-Type Natriuretic Peptide Pending Total Protein 7.6 G/DL (6.4-8.2) Albumin 2.8 G/DL (3.4-5.0) L Globulin 4.8 g/dL Albumin/Globulin Ratio 0.6 (1.0-2.7) L Thyroid Stimulating Hormone (TSH) 0.088 uiU/mL (0.358-3.740) Current Medications Medications (Trade) Dose Ordered Sig/Ana Maria Route PRN Reason Start Time Stop Time Status Last Admin Dose Admin Albuterol/ Ipratropium (Albuterol/ Ipratropium) 3 ml Q4H PRN HHN dyspnea 07/29/19 12:00 08/03/19 11:59 07/30/19 20:51 Amlodipine Besylate (Norvasc) 2.5 mg DAILY ORAL 07/31/19 09:00 08/29/19 08:59 Dextrose (Dextrose 50%) 25 ml Q30M PRN IV Hypoglycemia 07/29/19 12:00 08/28/19 11:59 Dextrose (Dextrose 50%) 50 ml Q30M PRN IV Hypoglycemia 07/29/19 12:00 08/28/19 11:59 Docusate Sodium (Colace) 100 mg THREE TIMES A DAY ORAL 07/30/19 18:00 08/29/19 17:59 07/31/19 08:41 Gabapentin (Neurontin) 300 mg BEDTIME ORAL 07/29/19 21:00 08/28/19 20:59 07/30/19 21:34 Heparin Sodium (Porcine) (Heparin 5000 units/ml) 5,000 units EVERY 12 HOURS SUBQ 07/29/19 21:00 08/28/19 20:59 07/31/19 08:42 Insulin Aspart (NovoLOG) BEFORE MEALS AND HS SUBQ 07/29/19 16:30 08/28/19 16:29 07/31/19 06:36 Levofloxacin (Levaquin) 250 mg Q24H ORAL 07/30/19 12:00 08/06/19 11:59 07/30/19 11:40 Methylprednisolone Sodium Succinate (Solu-MEDROL) 60 mg DAILY IV 07/31/19 09:00 08/28/19 11:59 07/31/19 08:41 Morphine Sulfate (Morphine Sulfate) 2 mg Q4H PRN IVP For Pain 07/29/19 15:15 08/05/19 15:14 Nitroglycerin (Ntg) 0.4 mg Q5M X 3 DOSES PRN SL Prn Chest Pain 07/29/19 12:00 08/28/19 11:59 Ondansetron HCl (Zofran) 4 mg Q6H PRN IVP Nausea & Vomiting 07/29/19 12:00 08/28/19 11:59 Pantoprazole (Protonix) 40 mg EVERY 12 HOURS ORAL 07/30/19 21:00 08/29/19 20:59 07/31/19 08:42 Promethazine HCl/ Codeine (Phenergan with Codeine) 5 ml Q6H PRN ORAL cough 07/29/19 12:00 08/28/19 11:59 07/31/19 08:43 Temazepam (Restoril) 15 mg HSPRN PRN ORAL Insomnia 07/29/19 12:00 08/05/19 11:59 Theophylline (Sixto-Dur) 100 mg EVERY 12 HOURS ORAL 07/29/19 21:00 08/28/19 20:59 07/31/19 08:42 Aleksandra Vale M.D. Jul 31, 2019 09:44
--- NOTE | 2019-07-31 10:00 | NUR ---
NURSE NOTES: The patient is stable without acute distress or shortness of breath. Will continue plan of care.
--- NOTE | 2019-07-31 11:11 | NUR ---
PT NOTE Attempted to see patient for PT evaluation, patient declining to participate with PT evaluation today. Gisela MCGEE notified, will follow up tomorrow.
[2019-07-31 12:00] VITALS: BP 126/79
--- NOTE | 2019-07-31 12:00 | NUR ---
NURSE NOTES: The patient is stable without acute distress or shortness of breath. The patient is on oxygen therapy per order. Will continue plan of care.
--- NOTE | 2019-07-31 12:05 | Pulmonology Progress Note ---
Assessment/Plan Problems: (1) COPD exacerbation (2) Chronic liver disease (3) COPD (chronic obstructive pulmonary disease) Assessment/Plan respiratory treatment check sputum, still pending abx taper steroids, sputum induction f/u liver enzymes dvt prophylaxis. Subjective ROS Limited/Unobtainable: No Constitutional: Reports: no symptoms HEENT: Repors: no symptoms Respiratory: Reports: no symptoms Allergies: Coded Allergies: No Known Allergies (Unverified , 06/17/12) Objective Last 24 Hour Vital Signs Date Time Temp Pulse Resp B/P (MAP) Pulse Ox O2 Delivery O2 Flow Rate FiO2 07/31/19 09:00 Nasal Cannula 2.0 07/31/19 08:41 98 102/60 07/31/19 08:00 92 07/31/19 08:00 97.5 98 18 102/60 (74) 95 07/31/19 07:00 89 14 92 Nasal Cannula 2.0 28 07/31/19 04:00 97.8 72 19 121/64 (83) 91 07/31/19 04:00 54 07/31/19 00:00 97.8 72 16 127/52 (77) 90 07/31/19 00:00 89 07/30/19 21:00 Nasal Cannula 2.0 07/30/19 20:54 86 16 91 Nasal Cannula 2.0 28 07/30/19 20:51 88 18 98 Nasal Cannula 2.0 28 86 16 91 07/30/19 20:00 98 07/30/19 20:00 97.5 86 16 102/63 (76) 95 07/30/19 16:00 2.0 07/30/19 15:38 97.5 101 18 108/60 (76) 95 07/30/19 15:13 80 Intake and Output 07/30/19 07/31/19 19:00 07:00 Intake Total 800 ml Balance 800 ml Intake Oral 800 ml # Voids 3 3 General Appearance: WD/WN HEENT: normocephalic, atraumatic Respiratory/Chest: chest wall non-tender, lungs clear Breasts: no masses Cardiovascular: normal peripheral pulses Abdomen: normal bowel sounds, soft, non tender Genitourinary: normal external genitalia Neurologic/Psychiatric: stock selector II-XII grossly normal Lymphatic: no neck adenopathy Microbiology Date/Time Source Procedure Growth Status 1/21/20 14:25 Sputum Gram Stain Pending Resulted 07/29/19 14:25 Sputum Sputum Culture - Preliminary NORMAL UPPER RESPIRATORY MICHAELA PRESENT Resulted 07/29/19 10:46 Nasal Nares MRSA Culture - Final NO METHICILLIN RESISTANT STAPH AUREUS... Complete 07/29/19 09:40 Nasal Nares - Final Complete 07/29/19 09:40 Nasal Nares - Final Complete 07/30/19 18:30 Urine,Clean Catch Urine Culture - Preliminary NO GROWTH Resulted 07/29/19 10:46 Rectum VRE Culture - Final NO VANCOMYCIN RESISTANT ENTEROCOCCUS ... Complete 07/29/19 10:46 Rectum - Final NO CARBAPENEM-RESISTANT ENTEROBACTERI... Complete Laboratory Tests 07/30/19 18:30: Urine Color Pale yellow, Urine Appearance Clear, Urine pH 6, Urine Specific [place] 1.015, Urine Protein 3+H, Urine Glucose (UA) 4+H, Urine Ketones 1+H, Urine Blood 1+H, Urine Nitrite Negative, Urine Bilirubin Negative, Urine Urobilinogen Normal, Urine Leukocyte Esterase Negative, Urine RBC 2-4H, Urine WBC 2-4, Urine Squamous Epithelial Cells Few, Urine Bacteria Few, Urine Yeast FewH 07/31/19 06:24: White Blood Count 23.5#*H, Red Blood Count 3.92L, Hemoglobin 10.0L, Hematocrit 31.6L, Mean Corpuscular Volume 81, Mean Corpuscular Hemoglobin 25.5L, Mean Corpuscular Hemoglobin Concent 31.6L, Red Cell Distribution Width 17.2H, Platelet Count 262, Mean Platelet Volume 7.1, Neutrophils (%) (Auto) , Lymphocytes (%) (Auto) , Monocytes (%) (Auto) , Eosinophils (%) (Auto) , Basophils (%) (Auto) , Neutrophils % (Manual) [Pending], Lymphocytes % (Manual) [Pending], Platelet Estimate [Pending], Platelet Morphology [Pending], Sodium Level 135L, Potassium Level 4.1, Chloride Level 102, Carbon Dioxide Level 22, Anion Gap 11, Blood Urea Nitrogen 28H, Creatinine 1.1, Estimat Glomerular Filtration Rate , Glucose Level 312H, Hemoglobin A1c 7.6H, Uric Acid 7.1, Calcium Level 8.7, Phosphorus Level 3.3, Magnesium Level 2.0, Total Bilirubin 0.2, Aspartate Amino Transf (AST/SGOT) 15, Alanine Aminotransferase (ALT/SGPT) 20, Alkaline Phosphatase 82, C-Reactive Protein, Quantitative < 0.4, Pro-B-Type Natriuretic Peptide [Pending], Total Protein 7.6, Albumin 2.8L, Globulin 4.8, Albumin/Globulin Ratio 0.6L, Thyroid Stimulating Hormone (TSH) 0.088L Current Medications Medications (Trade) Dose Ordered Sig/Ana Maria Route PRN Reason Start Time Stop Time Status Last Admin Dose Admin Albuterol/ Ipratropium (Albuterol/ Ipratropium) 3 ml Q4H PRN HHN dyspnea 07/29/19 12:00 08/03/19 11:59 07/30/19 20:51 Amlodipine Besylate (Norvasc) 2.5 mg DAILY ORAL 07/31/19 09:00 08/29/19 08:59 Dextrose (Dextrose 50%) 25 ml Q30M PRN IV Hypoglycemia 07/29/19 12:00 08/28/19 11:59 Dextrose (Dextrose 50%) 50 ml Q30M PRN IV Hypoglycemia 07/29/19 12:00 08/28/19 11:59 Docusate Sodium (Colace) 100 mg THREE TIMES A DAY ORAL 07/30/19 18:00 08/29/19 17:59 07/31/19 08:41 Gabapentin (Neurontin) 300 mg BEDTIME ORAL 07/29/19 21:00 08/28/19 20:59 07/30/19 21:34 Heparin Sodium (Porcine) (Heparin 5000 units/ml) 5,000 units EVERY 12 HOURS SUBQ 07/29/19 21:00 08/28/19 20:59 07/31/19 08:42 Insulin Aspart (NovoLOG) BEFORE MEALS AND HS SUBQ 07/29/19 16:30 08/28/19 16:29 07/31/19 06:36 Levofloxacin (Levaquin) 250 mg Q24H ORAL 07/30/19 12:00 08/06/19 11:59 07/30/19 11:40 Methylprednisolone Sodium Succinate (Solu-MEDROL) 60 mg DAILY IV 07/31/19 09:00 08/28/19 11:59 07/31/19 08:41 Morphine Sulfate (Morphine Sulfate) 2 mg Q4H PRN IVP For Pain 07/29/19 15:15 08/05/19 15:14 Nitroglycerin (Ntg) 0.4 mg Q5M X 3 DOSES PRN SL Prn Chest Pain 07/29/19 12:00 08/28/19 11:59 Ondansetron HCl (Zofran) 4 mg Q6H PRN IVP Nausea & Vomiting 07/29/19 12:00 08/28/19 11:59 Pantoprazole (Protonix) 40 mg EVERY 12 HOURS ORAL 07/30/19 21:00 08/29/19 20:59 07/31/19 08:42 Promethazine HCl/ Codeine (Phenergan with Codeine) 5 ml Q6H PRN ORAL cough 07/29/19 12:00 08/28/19 11:59 07/31/19 08:43 Temazepam (Restoril) 15 mg HSPRN PRN ORAL Insomnia 07/29/19 12:00 08/05/19 11:59 Theophylline (Sixto-Dur) 100 mg EVERY 12 HOURS ORAL 07/29/19 21:00 08/28/19 20:59 07/31/19 08:42 Monika Sarmiento MD Jul 31, 2019 12:05
--- NOTE | 2019-07-31 12:33 | Nephrology Progress Note ---
Assessment/Plan Problem List: (1) Hypotension (2) Diabetic nephropathy (3) Electrolyte imbalance (4) Diabetes mellitus Assessment: 3+ protein (5) Obesity (BMI 30.0-34.9) Assessment Low BP- Mild Low Na COPD- exac HTN now BP low DM2 Hepatitis B HLD former smoker s/p cholecystectomy obesity Plan adjust BP meds taper steroids as possible- now on PO Anemia richardson check UA Subjective ROS Limited/Unobtainable: No Constitutional: Reports: malaise Objective Objective Last 24 Hour Vital Signs Date Time Temp Pulse Resp B/P (MAP) Pulse Ox O2 Delivery O2 Flow Rate FiO2 07/31/19 09:00 Nasal Cannula 2.0 07/31/19 08:41 98 102/60 07/31/19 08:00 92 07/31/19 08:00 97.5 98 18 102/60 (74) 95 07/31/19 07:00 89 14 92 Nasal Cannula 2.0 28 07/31/19 04:00 97.8 72 19 121/64 (83) 91 07/31/19 04:00 54 07/31/19 00:00 97.8 72 16 127/52 (77) 90 07/31/19 00:00 89 07/30/19 21:00 Nasal Cannula 2.0 07/30/19 20:54 86 16 91 Nasal Cannula 2.0 28 07/30/19 20:51 88 18 98 Nasal Cannula 2.0 28 86 16 91 07/30/19 20:00 98 07/30/19 20:00 97.5 86 16 102/63 (76) 95 07/30/19 16:00 2.0 07/30/19 15:38 97.5 101 18 108/60 (76) 95 07/30/19 15:13 80 Intake and Output 07/30/19 07/31/19 19:00 07:00 Intake Total 800 ml Balance 800 ml Intake Oral 800 ml # Voids 3 3 Laboratory Tests 07/30/19 18:30: Urine Color Pale yellow, Urine Appearance Clear, Urine pH 6, Urine Specific [place] 1.015, Urine Protein 3+H, Urine Glucose (UA) 4+H, Urine Ketones 1+H, Urine Blood 1+H, Urine Nitrite Negative, Urine Bilirubin Negative, Urine Urobilinogen Normal, Urine Leukocyte Esterase Negative, Urine RBC 2-4H, Urine WBC 2-4, Urine Squamous Epithelial Cells Few, Urine Bacteria Few, Urine Yeast FewH 07/31/19 06:24: White Blood Count 23.5#*H, Red Blood Count 3.92L, Hemoglobin 10.0L, Hematocrit 31.6L, Mean Corpuscular Volume 81, Mean Corpuscular Hemoglobin 25.5L, Mean Corpuscular Hemoglobin Concent 31.6L, Red Cell Distribution Width 17.2H, Platelet Count 262, Mean Platelet Volume 7.1, Neutrophils (%) (Auto) , Lymphocytes (%) (Auto) , Monocytes (%) (Auto) , Eosinophils (%) (Auto) , Basophils (%) (Auto) , Neutrophils % (Manual) [Pending], Lymphocytes % (Manual) [Pending], Platelet Estimate [Pending], Platelet Morphology [Pending], Sodium Level 135L, Potassium Level 4.1, Chloride Level 102, Carbon Dioxide Level 22, Anion Gap 11, Blood Urea Nitrogen 28H, Creatinine 1.1, Estimat Glomerular Filtration Rate , Glucose Level 312H, Hemoglobin A1c 7.6H, Uric Acid 7.1, Calcium Level 8.7, Phosphorus Level 3.3, Magnesium Level 2.0, Total Bilirubin 0.2, Aspartate Amino Transf (AST/SGOT) 15, Alanine Aminotransferase (ALT/SGPT) 20, Alkaline Phosphatase 82, C-Reactive Protein, Quantitative < 0.4, Pro-B-Type Natriuretic Peptide [Pending], Total Protein 7.6, Albumin 2.8L, Globulin 4.8, Albumin/Globulin Ratio 0.6L, Thyroid Stimulating Hormone (TSH) 0.088L Height (Feet): 5 Height (Inches): 2.00 Weight (Pounds): 190 General Appearance: no apparent distress Cardiovascular: tachycardia Respiratory/Chest: decreased breath sounds Abdomen: distended Zacarias Crystal MD Jul 31, 2019 12:33
--- NOTE | 2019-07-31 13:44 | General Progress Note ---
Assessment/Plan Problem List: (1) Anemia ICD Codes: D64.9 - Anemia, unspecified SNOMED: 659014392 (2) Ventral incisional hernia ICD Codes: K43.2 - Incisional hernia without obstruction or gangrene SNOMED: 182835606 (3) Sepsis ICD Codes: A41.9 - Sepsis, unspecified organism SNOMED: 85549390 (4) Community acquired pneumonia ICD Codes: J18.9 - Pneumonia, unspecified organism SNOMED: 500339857 (5) Diabetes mellitus ICD Codes: E11.9 - Type 2 diabetes mellitus without complications SNOMED: 47476937 (6) COPD exacerbation ICD Codes: J44.1 - Chronic obstructive pulmonary disease with (acute) exacerbation SNOMED: 371045628 Status: unchanged Assessment/Plan: o2 pulm tx abx pt diet eval cbc bmp am Subjective Constitutional: Reports: weakness Allergies: Coded Allergies: No Known Allergies (Unverified , 06/17/12) All Systems: reviewed and negative except above Subjective awaiting procedure Objective Last 24 Hour Vital Signs Date Time Temp Pulse Resp B/P (MAP) Pulse Ox O2 Delivery O2 Flow Rate FiO2 07/31/19 09:00 Nasal Cannula 2.0 07/31/19 08:41 98 102/60 07/31/19 08:00 92 07/31/19 08:00 97.5 98 18 102/60 (74) 95 07/31/19 07:00 89 14 92 Nasal Cannula 2.0 28 07/31/19 04:00 97.8 72 19 121/64 (83) 91 07/31/19 04:00 54 07/31/19 00:00 97.8 72 16 127/52 (77) 90 07/31/19 00:00 89 07/30/19 21:00 Nasal Cannula 2.0 07/30/19 20:54 86 16 91 Nasal Cannula 2.0 28 07/30/19 20:51 88 18 98 Nasal Cannula 2.0 28 86 16 91 07/30/19 20:00 98 07/30/19 20:00 97.5 86 16 102/63 (76) 95 07/30/19 16:00 2.0 07/30/19 15:38 97.5 101 18 108/60 (76) 95 07/30/19 15:13 80 Intake and Output 07/30/19 07/31/19 19:00 07:00 Intake Total 800 ml Balance 800 ml Intake Oral 800 ml # Voids 3 3 Laboratory Tests 07/30/19 18:30: Urine Color Pale yellow, Urine Appearance Clear, Urine pH 6, Urine Specific [place] 1.015, Urine Protein 3+H, Urine Glucose (UA) 4+H, Urine Ketones 1+H, Urine Blood 1+H, Urine Nitrite Negative, Urine Bilirubin Negative, Urine Urobilinogen Normal, Urine Leukocyte Esterase Negative, Urine RBC 2-4H, Urine WBC 2-4, Urine Squamous Epithelial Cells Few, Urine Bacteria Few, Urine Yeast FewH 07/31/19 06:24: White Blood Count 23.5#*H, Red Blood Count 3.92L, Hemoglobin 10.0L, Hematocrit 31.6L, Mean Corpuscular Volume 81, Mean Corpuscular Hemoglobin 25.5L, Mean Corpuscular Hemoglobin Concent 31.6L, Red Cell Distribution Width 17.2H, Platelet Count 262, Mean Platelet Volume 7.1, Neutrophils (%) (Auto) , Lymphocytes (%) (Auto) , Monocytes (%) (Auto) , Eosinophils (%) (Auto) , Basophils (%) (Auto) , Differential Total Cells Counted 100, Neutrophils % ( Manual) 91H, Lymphocytes % (Manual) 5L, Monocytes % (Manual) 4, Eosinophils % ( Manual) 0, Basophils % (Manual) 0, Band Neutrophils 0, Platelet Estimate Adequate, Platelet Morphology Normal, Red Blood Cell Morphology Normal, Hypochromasia 1+, Anisocytosis 1+, Sodium Level 135L, Potassium Level 4.1, Chloride Level 102, Carbon Dioxide Level 22, Anion Gap 11, Blood Urea Nitrogen 28H, Creatinine 1.1, Estimat Glomerular Filtration Rate , Glucose Level 312H, Hemoglobin A1c 7.6H, Uric Acid 7.1, Calcium Level 8.7, Phosphorus Level 3.3, Magnesium Level 2.0, Total Bilirubin 0.2, Aspartate Amino Transf (AST/SGOT) 15, Alanine Aminotransferase (ALT/SGPT) 20, Alkaline Phosphatase 82, C-Reactive Protein, Quantitative < 0.4, Pro-B-Type Natriuretic Peptide [Pending], Total Protein 7.6, Albumin 2.8L, Globulin 4.8, Albumin/Globulin Ratio 0.6L, Thyroid Stimulating Hormone (TSH) 0.088L Height (Feet): 5 Height (Inches): 2.00 Weight (Pounds): 190 General Appearance: lethargic EENT: normal ENT inspection Neck: normal alignment Cardiovascular: normal peripheral pulses, normal rate, regular rhythm Respiratory/Chest: chest wall non-tender, accessory muscle use Abdomen: normal bowel sounds, non tender, soft Extremities: normal inspection Edema: no edema noted Arm (L), no edema noted Arm (R), no edema noted Leg (L), no edema noted Leg (R), no edema noted Pedal (L), no edema noted Pedal (R), no edema noted Generalized Neurologic: responsive, motor weakness Skin: normal pigmentation, warm/dry Jai Siddiqi DO Jul 31, 2019 13:44
--- NOTE | 2019-07-31 14:49 | Surgery Progress Note ---
Surgery Progress Note Subjective Additional Comments afebrile, HD stable comfortable tolerating diet no complaints no n/v/f/c labs noted Objective Last 24 Hour Vital Signs Date Time Temp Pulse Resp B/P (MAP) Pulse Ox O2 Delivery O2 Flow Rate FiO2 07/31/19 09:00 Nasal Cannula 2.0 07/31/19 08:41 98 102/60 07/31/19 08:00 92 07/31/19 08:00 97.5 98 18 102/60 (74) 95 07/31/19 07:00 89 14 92 Nasal Cannula 2.0 28 07/31/19 04:00 97.8 72 19 121/64 (83) 91 07/31/19 04:00 54 07/31/19 00:00 97.8 72 16 127/52 (77) 90 07/31/19 00:00 89 07/30/19 21:00 Nasal Cannula 2.0 07/30/19 20:54 86 16 91 Nasal Cannula 2.0 28 07/30/19 20:51 88 18 98 Nasal Cannula 2.0 28 86 16 91 07/30/19 20:00 98 07/30/19 20:00 97.5 86 16 102/63 (76) 95 07/30/19 16:00 2.0 07/30/19 15:38 97.5 101 18 108/60 (76) 95 07/30/19 15:13 80 I&O Intake and Output 07/30/19 07/31/19 19:00 07:00 Intake Total 800 ml Balance 800 ml Intake Oral 800 ml # Voids 3 3 Dressing: other Wound: other Drains: other Cardiovascular: RSR Respiratory: decreased breath sounds Abdomen: soft, non-tender, present bowel sounds, non-distended Extremities: no cyanosis Laboratory Tests Test 07/30/19 18:30 07/31/19 06:24 Urine Color Pale yellow Urine Appearance Clear Urine pH 6 (4.5-8.0) Urine Specific [place] 1.015 (1.005-1.035) Urine Protein 3+ (NEGATIVE) H Urine Glucose (UA) 4+ (NEGATIVE) H Urine Ketones 1+ (NEGATIVE) H Urine Blood 1+ (NEGATIVE) H Urine Nitrite Negative (NEGATIVE) Urine Bilirubin Negative (NEGATIVE) Urine Urobilinogen Normal MG/DL (0.0-1.0) Urine Leukocyte Esterase Negative (NEGATIVE) Urine RBC 2-4 /HPF (0 - 2) H Urine WBC 2-4 /HPF (0 - 2) Urine Squamous Epithelial Cells Few /LPF (NONE/OCC) Urine Bacteria Few /HPF (NONE) Urine Yeast Few /HPF (NONE) H White Blood Count 23.5 K/UL (4.8-10.8) #*H Red Blood Count 3.92 M/UL (4.20-5.40) L Hemoglobin 10.0 G/DL (12.0-16.0) L Hematocrit 31.6 % (37.0-47.0) L Mean Corpuscular Volume 81 FL (80-99) Mean Corpuscular Hemoglobin 25.5 PG (27.0-31.0) L Mean Corpuscular Hemoglobin Concent 31.6 G/DL (32.0-36.0) L Red Cell Distribution Width 17.2 % (11.6-14.8) H Platelet Count 262 K/UL (150-450) Mean Platelet Volume 7.1 FL (6.5-10.1) Neutrophils (%) (Auto) % (45.0-75.0) Lymphocytes (%) (Auto) % (20.0-45.0) Monocytes (%) (Auto) % (1.0-10.0) Eosinophils (%) (Auto) % (0.0-3.0) Basophils (%) (Auto) % (0.0-2.0) Differential Total Cells Counted 100 Neutrophils % (Manual) 91 % (45-75) H Lymphocytes % (Manual) 5 % (20-45) L Monocytes % (Manual) 4 % (1-10) Eosinophils % (Manual) 0 % (0-3) Basophils % (Manual) 0 % (0-2) Band Neutrophils 0 % (0-8) Platelet Estimate Adequate Platelet Morphology Normal Red Blood Cell Morphology Normal Hypochromasia 1+ Anisocytosis 1+ Sodium Level 135 MMOL/L (136-145) L Potassium Level 4.1 MMOL/L (3.5-5.1) Chloride Level 102 MMOL/L (98-107) Carbon Dioxide Level 22 MMOL/L (21-32) Anion Gap 11 mmol/L (5-15) Blood Urea Nitrogen 28 mg/dL (7-18) H Creatinine 1.1 MG/DL (0.55-1.30) Estimat Glomerular Filtration Rate mL/min (>60) Glucose Level 312 MG/DL (74-106) H Hemoglobin A1c 7.6 % (4.3-6.0) H Uric Acid 7.1 MG/DL (2.6-7.2) Calcium Level 8.7 MG/DL (8.5-10.1) Phosphorus Level 3.3 MG/DL (2.5-4.9) Magnesium Level 2.0 MG/DL (1.8-2.4) Total Bilirubin 0.2 MG/DL (0.2-1.0) Aspartate Amino Transf (AST/SGOT) 15 U/L (15-37) Alanine Aminotransferase (ALT/SGPT) 20 U/L (12-78) Alkaline Phosphatase 82 U/L (46-116) C-Reactive Protein, Quantitative < 0.4 mg/dL (0.00-0.90) Pro-B-Type Natriuretic Peptide Pending Total Protein 7.6 G/DL (6.4-8.2) Albumin 2.8 G/DL (3.4-5.0) L Globulin 4.8 g/dL Albumin/Globulin Ratio 0.6 (1.0-2.7) L Thyroid Stimulating Hormone (TSH) 0.088 uiU/mL (0.358-3.740) Plan Problems: (1) Abdominal pain Assessment & Plan: likely related to ventral incisional hernia see below (2) Ventral incisional hernia Assessment & Plan: mild tender midline supra umbilical around area of prior midline surgical incision, firm non reducible mass noted obese given body habitus unable to completely appreciate exam. tender and states began after episode of coughing There is a fat-containing supra-umbilical hernia measuring about 5 cm transversely. A smaller umbilical hernia also noted measuring about 2 cm. There is a right inguinal hernia and a smaller left inguinal hernia containing fat. There is no free fluid. diet as tolerated discussed with patient. no interest in elective hernia repair at this time outpatient follow up leukocytosis likely related to steroids respiratory as per pulm trend labs will follow with recommendations thank you Westley Menjivar Jul 31, 2019 14:49
--- NOTE | 2019-07-31 14:57 | NUR ---
CASE MANAGEMENT:REVIEW 07/31/19 SI: SEPSIS. PNEUMONIA. COPD 97.7 75 18 126/79 95% ON 2L/NC WBC+23.5 IS: PREDNISONE PO QD STARLIX PO TID NORVASC PO QD PROTONIX PO Q12 LEVAQUIN PO Q24 NEURONTIN PO QHS HEPARIN SQ Q12 JORDIN-DUR PO Q12 : TELEMETRY STATUS DCP: FROM HOME
[2019-07-31 16:00] VITALS: BP 118/66
--- NOTE | 2019-07-31 16:30 | NUR ---
NURSE NOTES: The patient is stable without acute distress or shortness of breath. Will continue plan of care.
[2019-07-31] MEDS: Nateglinide 60mg tab ORAL SCH (17:11)
--- NOTE | 2019-07-31 17:45 | NUR ---
HAND-OFF: Report given to EVERARDO Herrera. The patient is resting on the bed without acute distress or shortness of breath. The patient's bed in the lowest position, call light in reach, and fall and aspiration precaution reinforced. IV site intact and patent. Oxygen therapy per order. Endorsed plan of care.
--- NOTE | 2019-07-31 17:45 | NUR ---
NURSE NOTES: Received report from Gisela/RN, Patient is awake, sitting on bed, resting comfortably. On 2L nasal canula, No acute distress/SOB noted, Able to make needs known. Bed in low position and locked, Bed alarm is on, Side-rails up x3. Call light within reach, Encouraged to use call light when needed. Will continue plan of care.
--- NOTE | 2019-07-31 19:57 | NUR ---
NURSE NOTES: Received patient from EVERARDO Higgins, in stable condition, AOx4, denies pain, sitting at the of the bed watching tv, on 2 L O2 n/c, IV on right hand g22 asymptomatic, intact, patent, bed low and locked , call light within reach, will continue to monitor and reassess.
[2019-07-31 20:00] VITALS: BP 107/61
[2019-08-01] VITALS (7 sets, daily range): BP systolic 102–161; BP diastolic 60–85
[2019-08-01] MEDS: Nateglinide 60mg tab ORAL SCH ×3 (06:35→17:39)
[2019-08-01] MEDS: NovoLOG Insulin Flexpen SUBQ SCH ×4 (06:35→21:36)
--- NOTE | 2019-08-01 07:29 | NUR ---
HAND-OFF: Report given to EVERARDO Portillo, patient in stable condition, plan of care endorsed.
[2019-08-01] MEDS ORDERED: Morphine Sulfate 2mg/ml Inj(IV/IM USE ONLY) IVP PRN (07:30)
--- NOTE | 2019-08-01 07:37 | NUR ---
NURSE NOTES: Received report from Ember/RN, Patient is awake, lying semi-fowlers's, resting comfortably. On 3L nasal canula, No acute distress/SOB noted. Able to make needs known. denies pain at this time. IV on right hand patent, no bleeding or infiltration noted. Bed in low position and locked, side-rails up x3. Call light within reach, encouraged to use call light when needed. Will continue plan of care.
[2019-08-01 07:54] LABS: HEMATOCRIT 32.2 % (37.0-47.0); HEMOGLOBIN 10.3 G/DL (12.0-16.0); MEAN CORPUSCULAR VOLUME 80 FL (80-99); PLATELET COUNT 275 K/UL (150-450); RED BLOOD COUNT 4.03 M/UL (4.20-5.40); RED CELL DISTRIBUTION WIDTH 17.6 % (11.6-14.8)
[2019-08-01 08:00] LABS: ANION GAP 10 mmol/L (5-15); BLOOD UREA NITROGEN 32 mg/dL (7-18); CALCIUM 8.6 MG/DL (8.5-10.1); CARBON DIOXIDE 24 MMOL/L (21-32); CHLORIDE 104 MMOL/L (98-107); CREATININE 1.2 MG/DL (0.55-1.30); SODIUM 137 MMOL/L (136-145)
[2019-08-01 08:33] LABS: WHITE BLOOD COUNT 23.1 K/UL (4.8-10.8)
--- NOTE | 2019-08-01 09:58 | Nephrology Progress Note ---
Assessment/Plan Problem List: (1) Hypotension (2) Diabetic nephropathy (3) Electrolyte imbalance (4) Diabetes mellitus Assessment: 3+ protein (5) Obesity (BMI 30.0-34.9) Assessment Low BP- Mild Low Na COPD- exac HTN now BP low DM2 Hepatitis B HLD former smoker s/p cholecystectomy obesity Plan adjust BP meds taper steroids as possible- now on PO Anemia richardson check UA Subjective ROS Limited/Unobtainable: No Constitutional: Reports: malaise Objective Objective Last 24 Hour Vital Signs Date Time Temp Pulse Resp B/P (MAP) Pulse Ox O2 Delivery O2 Flow Rate FiO2 08/01/19 04:00 77 08/01/19 04:00 98.0 85 16 139/76 (97) 98 08/01/19 01:08 94 Nasal Cannula 2.0 28 08/01/19 00:00 97.0 91 16 161/85 (110) 98 08/01/19 00:00 79 07/31/19 21:00 Nasal Cannula 2.0 07/31/19 20:00 89 07/31/19 20:00 97.7 65 18 107/61 (76) 98 07/31/19 19:02 81 17 94 Nasal Cannula 2.0 28 07/31/19 16:00 90 07/31/19 16:00 98.0 89 18 118/66 (83) 95 07/31/19 12:00 97.7 75 18 126/79 (95) 95 07/31/19 12:00 68 Intake and Output 07/31/19 08/01/19 19:00 07:00 Intake Total 354 ml Balance 354 ml Intake Oral 354 ml # Voids 3 3 Current Medications Medications (Trade) Dose Ordered Sig/Ana Maria Route PRN Reason Start Time Stop Time Status Last Admin Dose Admin Albuterol/ Ipratropium (Albuterol/ Ipratropium) 3 ml Q4H PRN HHN dyspnea 07/29/19 12:00 08/03/19 11:59 07/30/19 20:51 Amlodipine Besylate (Norvasc) 2.5 mg DAILY ORAL 07/31/19 09:00 08/29/19 08:59 08/01/19 11:01 Dextrose (Dextrose 50%) 25 ml Q30M PRN IV Hypoglycemia 07/29/19 12:00 08/28/19 11:59 Dextrose (Dextrose 50%) 50 ml Q30M PRN IV Hypoglycemia 07/29/19 12:00 08/28/19 11:59 Docusate Sodium (Colace) 100 mg THREE TIMES A DAY ORAL 07/30/19 18:00 08/29/19 17:59 08/01/19 11:02 Gabapentin (Neurontin) 300 mg BEDTIME ORAL 07/29/19 21:00 08/28/19 20:59 07/30/19 21:34 Heparin Sodium (Porcine) (Heparin 5000 units/ml) 5,000 units EVERY 12 HOURS SUBQ 07/29/19 21:00 08/28/19 20:59 08/01/19 11:02 Insulin Aspart (NovoLOG) BEFORE MEALS AND HS SUBQ 07/29/19 16:30 08/28/19 16:29 08/01/19 06:35 Levofloxacin (Levaquin) 250 mg Q24H ORAL 07/30/19 12:00 08/06/19 11:59 08/01/19 12:09 Morphine Sulfate (Morphine Sulfate) 2 mg Q4H PRN IVP For Pain 07/29/19 15:15 08/05/19 15:14 Nateglinide (Starlix) 60 mg TIAC ORAL 07/31/19 16:30 08/30/19 16:29 08/01/19 12:09 Nitroglycerin (Ntg) 0.4 mg Q5M X 3 DOSES PRN SL Prn Chest Pain 07/29/19 12:00 08/28/19 11:59 Ondansetron HCl (Zofran) 4 mg Q6H PRN IVP Nausea & Vomiting 07/29/19 12:00 08/28/19 11:59 Pantoprazole (Protonix) 40 mg EVERY 12 HOURS ORAL 07/30/19 21:00 08/29/19 20:59 08/01/19 11:01 Prednisone (predniSONE) 20 mg DAILY ORAL 08/02/19 09:00 08/31/19 08:59 Promethazine HCl/ Codeine (Phenergan with Codeine) 5 ml Q6H PRN ORAL cough 07/29/19 12:00 08/28/19 11:59 07/31/19 21:56 Temazepam (Restoril) 15 mg HSPRN PRN ORAL Insomnia 07/29/19 12:00 08/05/19 11:59 Theophylline (Sixto-Dur) 100 mg EVERY 12 HOURS ORAL 07/29/19 21:00 08/28/19 20:59 08/01/19 11:00 Laboratory Tests 08/01/19 05:56: White Blood Count 23.1*H, Red Blood Count 4.03L, Hemoglobin 10.3L, Hematocrit 32.2L, Mean Corpuscular Volume 80, Mean Corpuscular Hemoglobin 25.4L, Mean Corpuscular Hemoglobin Concent 31.8L, Red Cell Distribution Width 17.6H, Platelet Count 275, Mean Platelet Volume 7.2, Neutrophils (%) (Auto) , Lymphocytes (%) (Auto) , Monocytes (%) (Auto) , Eosinophils (%) (Auto) , Basophils (%) (Auto) , Neutrophils % (Manual) [Pending], Lymphocytes % (Manual) [Pending], Platelet Estimate [Pending], Platelet Morphology [Pending], Sodium Level 137, Potassium Level 4.0, Chloride Level 104, Carbon Dioxide Level 24, Anion Gap 10, Blood Urea Nitrogen 32H, Creatinine 1.2, Estimat Glomerular Filtration Rate , Glucose Level 262H, Calcium Level 8.6 Height (Feet): 5 Height (Inches): 2.00 Weight (Pounds): 190 General Appearance: no apparent distress Cardiovascular: tachycardia Respiratory/Chest: decreased breath sounds Abdomen: distended Zacarias Crystal MD Aug 01, 2019 09:58
--- NOTE | 2019-08-01 10:12 | Surgery Progress Note ---
Surgery Progress Note Subjective Symptoms: improved, tolerating diet, voiding well, passing flatus, BM, pain decreased Objective Last 24 Hour Vital Signs Date Time Temp Pulse Resp B/P (MAP) Pulse Ox O2 Delivery O2 Flow Rate FiO2 08/01/19 04:00 77 08/01/19 04:00 98.0 85 16 139/76 (97) 98 08/01/19 01:08 94 Nasal Cannula 2.0 28 08/01/19 00:00 97.0 91 16 161/85 (110) 98 08/01/19 00:00 79 07/31/19 21:00 Nasal Cannula 2.0 07/31/19 20:00 89 07/31/19 20:00 97.7 65 18 107/61 (76) 98 07/31/19 19:02 81 17 94 Nasal Cannula 2.0 28 07/31/19 16:00 90 07/31/19 16:00 98.0 89 18 118/66 (83) 95 07/31/19 12:00 97.7 75 18 126/79 (95) 95 07/31/19 12:00 68 I&O Intake and Output 07/31/19 08/01/19 19:00 07:00 Intake Total 354 ml Balance 354 ml Intake Oral 354 ml # Voids 3 3 Cardiovascular: RSR Respiratory: clear Abdomen: soft, non-tender, present bowel sounds, non-distended Extremities: no edema, no tenderness, no cyanosis Laboratory Tests Test 08/01/19 05:56 White Blood Count 23.1 K/UL (4.8-10.8) *H Red Blood Count 4.03 M/UL (4.20-5.40) L Hemoglobin 10.3 G/DL (12.0-16.0) L Hematocrit 32.2 % (37.0-47.0) L Mean Corpuscular Volume 80 FL (80-99) Mean Corpuscular Hemoglobin 25.4 PG (27.0-31.0) L Mean Corpuscular Hemoglobin Concent 31.8 G/DL (32.0-36.0) L Red Cell Distribution Width 17.6 % (11.6-14.8) H Platelet Count 275 K/UL (150-450) Mean Platelet Volume 7.2 FL (6.5-10.1) Neutrophils (%) (Auto) % (45.0-75.0) Lymphocytes (%) (Auto) % (20.0-45.0) Monocytes (%) (Auto) % (1.0-10.0) Eosinophils (%) (Auto) % (0.0-3.0) Basophils (%) (Auto) % (0.0-2.0) Neutrophils % (Manual) Pending Lymphocytes % (Manual) Pending Platelet Estimate Pending Platelet Morphology Pending Sodium Level 137 MMOL/L (136-145) Potassium Level 4.0 MMOL/L (3.5-5.1) Chloride Level 104 MMOL/L (98-107) Carbon Dioxide Level 24 MMOL/L (21-32) Anion Gap 10 mmol/L (5-15) Blood Urea Nitrogen 32 mg/dL (7-18) H Creatinine 1.2 MG/DL (0.55-1.30) Estimat Glomerular Filtration Rate mL/min (>60) Glucose Level 262 MG/DL (74-106) H Calcium Level 8.6 MG/DL (8.5-10.1) Plan Problems: (1) Abdominal pain Assessment & Plan: likely related to ventral incisional hernia see below (2) Ventral incisional hernia Assessment & Plan: mild tender midline supra umbilical around area of prior midline surgical incision, firm non reducible mass noted obese given body habitus unable to completely appreciate exam. tender and states began after episode of coughing There is a fat-containing supra-umbilical hernia measuring about 5 cm transversely. A smaller umbilical hernia also noted measuring about 2 cm. There is a right inguinal hernia and a smaller left inguinal hernia containing fat. There is no free fluid. diet as tolerated discussed with patient. no interest in elective hernia repair at this time outpatient follow up leukocytosis likely related to steroids respiratory as per pulm trend labs will follow with recommendations thank you Westley Menjivar Aug 01, 2019 10:12
--- NOTE | 2019-08-01 10:50 | NUR ---
PT EVALUATION NOTE Patient seen for initial evaluation. Patient demonstrates generalized weakness and decreased activity tolerance. Patient will benefit from skilled inpatient PT intervention to address strength and knowledge regarding proper breathing and pacing techniques for improved activity tolerance and level of functional mobility. Recommend discharge home once medically cleared by MD. No DME needs identified at this time. Addendum: 08/01/19 at 1115 by MEDHAT PARRA PT Amended: Links added.
[2019-08-01] MEDS: Theophylline ER 100mg ORAL SCH ×2 (11:00→21:31)
[2019-08-01] MEDS: Heparin 5000 units/ml inj SUBQ SCH ×2 (11:02→21:34)
[2019-08-01] MEDS: Docusate 100mg cap ORAL SCH ×3 (11:02→17:39)
--- NOTE | 2019-08-01 11:03 | Pulmonology Progress Note ---
Assessment/Plan Problems: (1) COPD exacerbation (2) Chronic liver disease (3) COPD (chronic obstructive pulmonary disease) Assessment/Plan wbc remains high respiratory treatment check sputum, still pending abx taper steroids, to prednisone 20QD sputum induction f/u liver enzymes dvt prophylaxis. Subjective ROS Limited/Unobtainable: No Constitutional: Reports: no symptoms HEENT: Repors: no symptoms Respiratory: Reports: no symptoms Allergies: Coded Allergies: No Known Allergies (Unverified , 06/17/12) Objective Last 24 Hour Vital Signs Date Time Temp Pulse Resp B/P (MAP) Pulse Ox O2 Delivery O2 Flow Rate FiO2 08/01/19 04:00 77 08/01/19 04:00 98.0 85 16 139/76 (97) 98 08/01/19 01:08 94 Nasal Cannula 2.0 28 08/01/19 00:00 97.0 91 16 161/85 (110) 98 08/01/19 00:00 79 07/31/19 21:00 Nasal Cannula 2.0 07/31/19 20:00 89 07/31/19 20:00 97.7 65 18 107/61 (76) 98 07/31/19 19:02 81 17 94 Nasal Cannula 2.0 28 07/31/19 16:00 90 07/31/19 16:00 98.0 89 18 118/66 (83) 95 07/31/19 12:00 97.7 75 18 126/79 (95) 95 07/31/19 12:00 68 Intake and Output 07/31/19 08/01/19 19:00 07:00 Intake Total 354 ml Balance 354 ml Intake Oral 354 ml # Voids 3 3 Objective General Appearance: WD/WN HEENT: normocephalic, atraumatic Respiratory/Chest: chest wall non-tender, decreased breath sounds Cardiovascular: normal peripheral pulses, regular rhythm Abdomen: normal bowel sounds, no organomegaly Genitourinary: normal external genitalia Extremities: no cyanosis Neurologic/Psychiatric: room service attendant II-XII grossly normal, abnormal gait Lymphatic: no neck adenopathy Microbiology Date/Time Source Procedure Growth Status 07/29/19 14:25 Sputum Gram Stain - Final Complete 07/29/19 14:25 Sputum Sputum Culture - Final NORMAL UPPER RESPIRATORY MICHAELA PRESENT Complete 07/30/19 18:30 Urine,Clean Catch Urine Culture - Preliminary Mixed Gram Positive Organism Resulted Laboratory Tests 08/01/19 05:56: White Blood Count 23.1*H, Red Blood Count 4.03L, Hemoglobin 10.3L, Hematocrit 32.2L, Mean Corpuscular Volume 80, Mean Corpuscular Hemoglobin 25.4L, Mean Corpuscular Hemoglobin Concent 31.8L, Red Cell Distribution Width 17.6H, Platelet Count 275, Mean Platelet Volume 7.2, Neutrophils (%) (Auto) , Lymphocytes (%) (Auto) , Monocytes (%) (Auto) , Eosinophils (%) (Auto) , Basophils (%) (Auto) , Neutrophils % (Manual) [Pending], Lymphocytes % (Manual) [Pending], Platelet Estimate [Pending], Platelet Morphology [Pending], Sodium Level 137, Potassium Level 4.0, Chloride Level 104, Carbon Dioxide Level 24, Anion Gap 10, Blood Urea Nitrogen 32H, Creatinine 1.2, Estimat Glomerular Filtration Rate , Glucose Level 262H, Calcium Level 8.6 Current Medications Medications (Trade) Dose Ordered Sig/Ana Maria Route PRN Reason Start Time Stop Time Status Last Admin Dose Admin Albuterol/ Ipratropium (Albuterol/ Ipratropium) 3 ml Q4H PRN HHN dyspnea 07/29/19 12:00 08/03/19 11:59 07/30/19 20:51 Amlodipine Besylate (Norvasc) 2.5 mg DAILY ORAL 07/31/19 09:00 08/29/19 08:59 Dextrose (Dextrose 50%) 25 ml Q30M PRN IV Hypoglycemia 07/29/19 12:00 08/28/19 11:59 Dextrose (Dextrose 50%) 50 ml Q30M PRN IV Hypoglycemia 07/29/19 12:00 08/28/19 11:59 Docusate Sodium (Colace) 100 mg THREE TIMES A DAY ORAL 07/30/19 18:00 08/29/19 17:59 07/31/19 17:12 Gabapentin (Neurontin) 300 mg BEDTIME ORAL 07/29/19 21:00 08/28/19 20:59 07/30/19 21:34 Heparin Sodium (Porcine) (Heparin 5000 units/ml) 5,000 units EVERY 12 HOURS SUBQ 07/29/19 21:00 08/28/19 20:59 07/31/19 21:47 Insulin Aspart (NovoLOG) BEFORE MEALS AND HS SUBQ 07/29/19 16:30 08/28/19 16:29 08/01/19 06:35 Levofloxacin (Levaquin) 250 mg Q24H ORAL 07/30/19 12:00 08/06/19 11:59 07/31/19 12:10 Morphine Sulfate (Morphine Sulfate) 2 mg Q4H PRN IVP For Pain 07/29/19 15:15 08/05/19 15:14 Nateglinide (Starlix) 60 mg TIAC ORAL 07/31/19 16:30 08/30/19 16:29 08/01/19 06:35 Nitroglycerin (Ntg) 0.4 mg Q5M X 3 DOSES PRN SL Prn Chest Pain 07/29/19 12:00 08/28/19 11:59 Ondansetron HCl (Zofran) 4 mg Q6H PRN IVP Nausea & Vomiting 07/29/19 12:00 08/28/19 11:59 Pantoprazole (Protonix) 40 mg EVERY 12 HOURS ORAL 07/30/19 21:00 08/29/19 20:59 07/31/19 21:45 Prednisone (predniSONE) 40 mg DAILY ORAL 08/01/19 09:00 08/31/19 08:59 Promethazine HCl/ Codeine (Phenergan with Codeine) 5 ml Q6H PRN ORAL cough 07/29/19 12:00 08/28/19 11:59 07/31/19 21:56 Temazepam (Restoril) 15 mg HSPRN PRN ORAL Insomnia 07/29/19 12:00 08/05/19 11:59 Theophylline (Sixto-Dur) 100 mg EVERY 12 HOURS ORAL 07/29/19 21:00 08/28/19 20:59 07/31/19 21:45 Monika Sarmiento MD Aug 01, 2019 11:03
--- NOTE | 2019-08-01 12:57 | NUR ---
CASE MANAGEMENT: REVIEW 08/01/2019 SI: SEPSIS, PNA,COPD 98.0 125 16 106/70 NC 2L 98% WBC 23.1 H/H 10.3/32.2 BUN 32 IS: PROTONIX 40 PO QD JORDIN-DUR 100 PO Q12H HEP SUBQ Q12H PREDNISONE 20 QD LEVAQUIN 250 Q24H NEB TX Q4H PRN MORPHINE IV Q4H PRN NITRO SL PRN ~~~~~TELEMETRY [facility]
--- NOTE | 2019-08-01 14:18 | NUR ---
*-* INSURANCE *-* ALL CLINICALS AND REVIEWS HAVE BEEN FAXED TO: [employer] NO THERAPIST OCCUPATIONAL ASSIGNED AT THIS TIME PLEASE FAX THE REVIEW/CLINICAL P- [phone] F- [phone]...REVIEW/CLINICAL
--- NOTE | 2019-08-01 15:00 | Progress Note ---
DATE: 08/01/2019 APPROXIMATE TIME: 7 a.m. SUBJECTIVE: The patient is O2 NC, calm, sitting in bed, slight short of breath, slight coughing. OBJECTIVE: VITAL SIGNS: Pending. CARDIOVASCULAR: No murmur. LUNGS: Poor air exchange. ABDOMEN: Bowel sounds distant. EXTREMITIES: Show no cyanosis or edema. LABORATORY DATA: Pending. ASSESSMENT: 1. COPD exacerbation. 2. Pneumonia. 3. Sepsis. 4. Hypoxia. 5. CHF. 6. Hypertension. 7. COPD. 8. Anemia. 9. Rheumatoid arthritis. 10. Diabetes. 11. Malnutrition. PLAN: 1. O2 and pulmonary treatment. 2. Antibiotics per Infectious Disease. 3. Blood pressure and pain control. 4. Dietary followup. Jai Siddiqi D.O. DR: RADHA JOB#: [id number] CC:
--- NOTE | 2019-08-01 17:54 | Infectious Diseases Prog Note ---
Assessment/Plan Assessment/Plan Assessment: COPD exacerbation URI syndrome -influenza sc neg -CXR: Increased bilateral interstitial congestion, since prior exam 07/21/2019 -spc x normal resp luisana (prelim) Pulmonary congestion Afebrile Leukocytosis, increased (on high dose sterodis) -u/a neg; ucx NTD -07/30 CT abd/p: Moderate bronchiectasis within the visualized lung bases. Status post cholecystectomy. Bilateral renal hypodensities. Cystic versus solid. Suggestion of nodularity of the left adrenal gland suggestion of adrenal adenomas. Graph severe arterial vascular disease involving the aorta and iliac arteries. Ventral abdominal wall hernias as described above. Bilateral inguinal hernias containing fat. Multilevel lumbar facet arthropathy COPD HTN DM2 Hepatitis B HLD former smoker s/p cholecystectomy obesity Plan: -Cont Levaquin#4/5 for COPD exacerbation -07/21 SP Ceftriaxone #4, Azithromycin #4 - 07/18/19 S/P Zosyn #1 -f/u cx -Monitor CBC/CMP, temperatures -aspiration precautions Thank you for consulting [facility]. Will continue to follow along with you. Discussed with RN. Subjective Allergies: Coded Allergies: No Known Allergies (Unverified , 06/17/12) Subjective afebrile at 2l NC wbc remains on the 20s; on steroids Objective Vital Signs Last 24 Hour Vital Signs Date Time Temp Pulse Resp B/P (MAP) Pulse Ox O2 Delivery O2 Flow Rate FiO2 08/01/19 16:00 77 08/01/19 12:00 98.2 81 18 102/62 (75) 96 08/01/19 12:00 85 08/01/19 11:01 125 106/70 08/01/19 09:00 Nasal Cannula 2.0 08/01/19 08:00 97.9 81 20 114/61 (78) 96 08/01/19 08:00 83 08/01/19 04:00 77 08/01/19 04:00 98.0 85 16 139/76 (97) 98 08/01/19 01:08 94 Nasal Cannula 2.0 28 08/01/19 00:00 97.0 91 16 161/85 (110) 98 08/01/19 00:00 79 07/31/19 21:00 Nasal Cannula 2.0 07/31/19 20:00 89 07/31/19 20:00 97.7 65 18 107/61 (76) 98 07/31/19 19:02 81 17 94 Nasal Cannula 2.0 28 Height (Feet): 5 Height (Inches): 2.00 Weight (Pounds): 190 Objective General: Awake and alert, uncomfortable appearing, tachypneic, hypoxic HEENT: NC/AT. EOMI. no stridor. Cardiovascular: RRR. S1 and S2 normal. No murmur appreciated Resp: Increased work of breathing, tachypnea. Bilateral inspiratory expiratory wheezes with coarse crackles at the bases. Saturating 77% on room air. Abdomen: Abdomen is soft, nondistended. Nontender Skin: Abdominal surgical scars are clean dry and intact. Otherwise no rash, breakdown appreciated on the exposed skin MSK: Normal tone and bulk. Moving all extremities. No obvious deformity. Neuro: Awake and alert. Mentating appropriately. Microbiology Date/Time Source Procedure Growth Status 07/30/19 18:30 Urine,Clean Catch Urine Culture - Preliminary Mixed Gram Positive Organism Resulted Laboratory Tests Test 08/01/19 05:56 White Blood Count 23.1 K/UL (4.8-10.8) *H Red Blood Count 4.03 M/UL (4.20-5.40) L Hemoglobin 10.3 G/DL (12.0-16.0) L Hematocrit 32.2 % (37.0-47.0) L Mean Corpuscular Volume 80 FL (80-99) Mean Corpuscular Hemoglobin 25.4 PG (27.0-31.0) L Mean Corpuscular Hemoglobin Concent 31.8 G/DL (32.0-36.0) L Red Cell Distribution Width 17.6 % (11.6-14.8) H Platelet Count 275 K/UL (150-450) Mean Platelet Volume 7.2 FL (6.5-10.1) Neutrophils (%) (Auto) % (45.0-75.0) Lymphocytes (%) (Auto) % (20.0-45.0) Monocytes (%) (Auto) % (1.0-10.0) Eosinophils (%) (Auto) % (0.0-3.0) Basophils (%) (Auto) % (0.0-2.0) Differential Total Cells Counted 100 Neutrophils % (Manual) 82 % (45-75) H Lymphocytes % (Manual) 9 % (20-45) L Monocytes % (Manual) 9 % (1-10) Eosinophils % (Manual) 0 % (0-3) Basophils % (Manual) 0 % (0-2) Band Neutrophils 0 % (0-8) Platelet Estimate Adequate Platelet Morphology Normal Anisocytosis 1+ Sodium Level 137 MMOL/L (136-145) Potassium Level 4.0 MMOL/L (3.5-5.1) Chloride Level 104 MMOL/L (98-107) Carbon Dioxide Level 24 MMOL/L (21-32) Anion Gap 10 mmol/L (5-15) Blood Urea Nitrogen 32 mg/dL (7-18) H Creatinine 1.2 MG/DL (0.55-1.30) Estimat Glomerular Filtration Rate mL/min (>60) Glucose Level 262 MG/DL (74-106) H Calcium Level 8.6 MG/DL (8.5-10.1) Current Medications Medications (Trade) Dose Ordered Sig/Ana Maria Route PRN Reason Start Time Stop Time Status Last Admin Dose Admin Albuterol/ Ipratropium (Albuterol/ Ipratropium) 3 ml Q4H PRN HHN dyspnea 07/29/19 12:00 08/03/19 11:59 07/30/19 20:51 Amlodipine Besylate (Norvasc) 2.5 mg DAILY ORAL 07/31/19 09:00 08/29/19 08:59 08/01/19 11:01 Dextrose (Dextrose 50%) 25 ml Q30M PRN IV Hypoglycemia 07/29/19 12:00 08/28/19 11:59 Dextrose (Dextrose 50%) 50 ml Q30M PRN IV Hypoglycemia 07/29/19 12:00 08/28/19 11:59 Docusate Sodium (Colace) 100 mg THREE TIMES A DAY ORAL 07/30/19 18:00 08/29/19 17:59 08/01/19 17:39 Gabapentin (Neurontin) 300 mg BEDTIME ORAL 07/29/19 21:00 08/28/19 20:59 07/30/19 21:34 Heparin Sodium (Porcine) (Heparin 5000 units/ml) 5,000 units EVERY 12 HOURS SUBQ 07/29/19 21:00 08/28/19 20:59 08/01/19 11:02 Insulin Aspart (NovoLOG) BEFORE MEALS AND HS SUBQ 07/29/19 16:30 08/28/19 16:29 08/01/19 17:40 Levofloxacin (Levaquin) 250 mg Q24H ORAL 07/30/19 12:00 08/06/19 11:59 08/01/19 12:09 Morphine Sulfate (Morphine Sulfate) 2 mg Q4H PRN IVP For Pain 07/29/19 15:15 08/05/19 15:14 Nateglinide (Starlix) 60 mg TIAC ORAL 07/31/19 16:30 08/30/19 16:29 08/01/19 17:39 Nitroglycerin (Ntg) 0.4 mg Q5M X 3 DOSES PRN SL Prn Chest Pain 07/29/19 12:00 08/28/19 11:59 Ondansetron HCl (Zofran) 4 mg Q6H PRN IVP Nausea & Vomiting 07/29/19 12:00 08/28/19 11:59 Pantoprazole (Protonix) 40 mg EVERY 12 HOURS ORAL 07/30/19 21:00 08/29/19 20:59 08/01/19 11:01 Prednisone (predniSONE) 20 mg DAILY ORAL 08/02/19 09:00 08/31/19 08:59 Promethazine HCl/ Codeine (Phenergan with Codeine) 5 ml Q6H PRN ORAL cough 07/29/19 12:00 08/28/19 11:59 07/31/19 21:56 Temazepam (Restoril) 15 mg HSPRN PRN ORAL Insomnia 07/29/19 12:00 08/05/19 11:59 Theophylline (Sixto-Dur) 100 mg EVERY 12 HOURS ORAL 07/29/19 21:00 08/28/19 20:59 08/01/19 11:00 Aleksandra Vale M.D. Aug 01, 2019 17:54
--- NOTE | 2019-08-01 19:30 | NUR ---
NURSE NOTES: RECEIVED PATIENT SITTING AT BEDSIDE, ALERT/ORIENTED X4, VERBALLY RESPONSIVE, DENIES PAIN. IV INTACT TO RIGHT HAND/GAUGE 22, NO REDNESS/SWELLING NOTED. NO SIGNS AND SYMPTOMS OF ACUTE CARDIO RESPIRATORY DISTRESS/SHORTNESS OF BREATH, DENIES CHEST PAIN, NOTED WITH TRACE EDEMA, DIMINISHED BREATH SOUNDS. ABDOMEN SOFT/NON DISTENDED, AUDIBLE BOWEL SOUNDS, NO REPORT OF NAUSEA/VOMITING. ENCOURAGED PATIENT TO UTILIZE CALL LIGHT FOR ASSISTANCE, VERBALIZED UNDERSTANDING. CONTINUE WITH CURRENT PLAN OF CARE. NAD.
--- NOTE | 2019-08-01 19:33 | NUR ---
HAND-OFF: Report given to Lakeshia/JOSE, patient is in stable condition. Endorsed plan of care.
[2019-08-02] VITALS: BP 114/54
[2019-08-02] MEDS: Morphine Sulfate 2mg/ml Inj(IV/IM USE ONLY) IVP PRN ×2 (01:56→21:09)
[2019-08-02 04:00] VITALS: BP 141/56
[2019-08-02] MEDS: NovoLOG Insulin Flexpen SUBQ SCH ×4 (07:01→21:27)
[2019-08-02] MEDS: Nateglinide 60mg tab ORAL SCH ×3 (07:01→15:59)
--- NOTE | 2019-08-02 07:30 | NUR ---
HAND-OFF: Report given to EVERARDO BARRY.
--- NOTE | 2019-08-02 07:42 | Pulmonology Progress Note ---
Assessment/Plan Problems: (1) COPD exacerbation (2) Chronic liver disease (3) COPD (chronic obstructive pulmonary disease) Assessment/Plan wbc remains high respiratory treatment check sputum, still pending abx on Levofloxacin taper steroids, to prednisone 20QD sputum induction f/u liver enzymes dvt prophylaxis. Subjective ROS Limited/Unobtainable: No Constitutional: Reports: no symptoms HEENT: Repors: no symptoms Allergies: Coded Allergies: No Known Allergies (Unverified , 06/17/12) Objective Last 24 Hour Vital Signs Date Time Temp Pulse Resp B/P (MAP) Pulse Ox O2 Delivery O2 Flow Rate FiO2 08/02/19 04:00 95 08/02/19 04:00 98.1 83 18 141/56 (84) 98 08/02/19 02:26 98.1 08/02/19 00:00 98.1 82 16 114/54 (74) 98 08/01/19 21:00 86 16 120/60 (80) 94 08/01/19 21:00 Nasal Cannula 2.0 08/01/19 20:00 77 08/01/19 20:00 97.5 86 16 120/60 (80) 94 08/01/19 16:00 77 08/01/19 16:00 98.2 87 20 111/62 (78) 93 08/01/19 12:00 98.2 81 18 102/62 (75) 96 08/01/19 12:00 85 08/01/19 11:01 125 106/70 08/01/19 09:00 Nasal Cannula 2.0 08/01/19 08:00 97.9 81 20 114/61 (78) 96 08/01/19 08:00 83 Intake and Output 08/01/19 08/02/19 19:00 07:00 Intake Total 800 ml 720 ml Balance 800 ml 720 ml Intake Oral 800 ml 720 ml # Voids 3 3 Objective General Appearance: WD/WN HEENT: normocephalic, atraumatic Respiratory/Chest: chest wall non-tender, decreased breath sounds Cardiovascular: normal peripheral pulses, regular rhythm Abdomen: normal bowel sounds, no organomegaly Genitourinary: normal external genitalia Extremities: no cyanosis 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 II-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 grossly normal, abnormal gait Lymphatic: no neck adenopathy Microbiology Date/Time Source Procedure Growth Status 07/30/19 18:30 Urine,Clean Catch Urine Culture - Final Mixed Gram Positive Organism Complete Current Medications Medications (Trade) Dose Ordered Sig/Ana Maria Route PRN Reason Start Time Stop Time Status Last Admin Dose Admin Albuterol/ Ipratropium (Albuterol/ Ipratropium) 3 ml Q4H PRN HHN dyspnea 07/29/19 12:00 08/03/19 11:59 07/30/19 20:51 Amlodipine Besylate (Norvasc) 2.5 mg DAILY ORAL 07/31/19 09:00 08/29/19 08:59 08/01/19 11:01 Dextrose (Dextrose 50%) 25 ml Q30M PRN IV Hypoglycemia 07/29/19 12:00 08/28/19 11:59 Dextrose (Dextrose 50%) 50 ml Q30M PRN IV Hypoglycemia 07/29/19 12:00 08/28/19 11:59 Docusate Sodium (Colace) 100 mg THREE TIMES A DAY ORAL 07/30/19 18:00 08/29/19 17:59 08/01/19 17:39 Gabapentin (Neurontin) 300 mg BEDTIME ORAL 07/29/19 21:00 08/28/19 20:59 08/01/19 21:31 Heparin Sodium (Porcine) (Heparin 5000 units/ml) 5,000 units EVERY 12 HOURS SUBQ 07/29/19 21:00 08/28/19 20:59 08/01/19 21:34 Insulin Aspart (NovoLOG) BEFORE MEALS AND HS SUBQ 07/29/19 16:30 08/28/19 16:29 08/02/19 07:01 Levofloxacin (Levaquin) 250 mg Q24H ORAL 07/30/19 12:00 08/06/19 11:59 08/01/19 12:09 Morphine Sulfate (Morphine Sulfate) 2 mg Q4H PRN IVP For Pain 07/29/19 15:15 08/05/19 15:14 08/02/19 01:56 Nateglinide (Starlix) 60 mg TIAC ORAL 07/31/19 16:30 08/30/19 16:29 08/02/19 07:01 Nitroglycerin (Ntg) 0.4 mg Q5M X 3 DOSES PRN SL Prn Chest Pain 07/29/19 12:00 08/28/19 11:59 Ondansetron HCl (Zofran) 4 mg Q6H PRN IVP Nausea & Vomiting 07/29/19 12:00 08/28/19 11:59 Pantoprazole (Protonix) 40 mg EVERY 12 HOURS ORAL 07/30/19 21:00 08/29/19 20:59 08/01/19 21:31 Prednisone (predniSONE) 20 mg DAILY ORAL 08/02/19 09:00 08/31/19 08:59 Promethazine HCl/ Codeine (Phenergan with Codeine) 5 ml Q6H PRN ORAL cough 07/29/19 12:00 08/28/19 11:59 07/31/19 21:56 Temazepam (Restoril) 15 mg HSPRN PRN ORAL Insomnia 07/29/19 12:00 08/05/19 11:59 Theophylline (Sixto-Dur) 100 mg EVERY 12 HOURS ORAL 07/29/19 21:00 08/28/19 20:59 08/01/19 21:31 Monika Sarmiento MD Aug 02, 2019 07:42
--- NOTE | 2019-08-02 07:48 | NUR ---
NURSE NOTES: RESTED WELL, NO SIGNIFICANT CHANGE OF CONDITION NOTED THROUGHOUT THE NIGHT. SAFETY MAINTAINED. NAD.
[2019-08-02 08:00] VITALS: BP 102/60
--- NOTE | 2019-08-02 09:19 | NUR ---
pt sitting at edge of bed eating breafast iv saline lock oxygen via nc. shows no s/s of sob no acute distress noted. pt denies any
[2019-08-02] MEDS: Docusate 100mg cap ORAL SCH ×3 (09:54→17:00)
[2019-08-02] MEDS: Theophylline ER 100mg ORAL SCH ×2 (09:54→21:09)
[2019-08-02] MEDS: Heparin 5000 units/ml inj SUBQ SCH ×2 (09:58→21:10)
--- NOTE | 2019-08-02 10:33 | Infectious Diseases Prog Note ---
Assessment/Plan Assessment/Plan Assessment: COPD exacerbation URI syndrome -influenza sc neg -CXR: Increased bilateral interstitial congestion, since prior exam 07/21/2019 -spc x normal resp luisana (prelim) Pulmonary congestion Afebrile Leukocytosis, increased (on high dose sterodis) -u/a neg; ucx NTD -07/30 CT abd/p: Moderate bronchiectasis within the visualized lung bases. Status post cholecystectomy. Bilateral renal hypodensities. Cystic versus solid. Suggestion of nodularity of the left adrenal gland suggestion of adrenal adenomas. Graph severe arterial vascular disease involving the aorta and iliac arteries. Ventral abdominal wall hernias as described above. Bilateral inguinal hernias containing fat. Multilevel lumbar facet arthropathy COPD HTN DM2 Hepatitis B HLD former smoker s/p cholecystectomy obesity Plan: -Cont Levaquin#5/7 for COPD exacerbation -07/21 SP Ceftriaxone #4, Azithromycin #4 - 07/18/19 S/P Zosyn #1 -f/u cx -Monitor CBC/CMP, temperatures -aspiration precautions Thank you for consulting [facility]. Will continue to follow along with you. Subjective Allergies: Coded Allergies: No Known Allergies (Unverified , 06/17/12) Subjective Afebrile Leukoctyosis 23 On steroids Objective Vital Signs Last 24 Hour Vital Signs Date Time Temp Pulse Resp B/P (MAP) Pulse Ox O2 Delivery O2 Flow Rate FiO2 08/02/19 07:00 100 18 91 Nasal Cannula 2.0 28 08/02/19 07:00 91 Nasal Cannula 2.0 28 08/02/19 04:00 95 08/02/19 04:00 98.1 83 18 141/56 (84) 98 08/02/19 02:26 98.1 08/02/19 00:00 98.1 82 16 114/54 (74) 98 08/01/19 21:00 86 16 120/60 (80) 94 08/01/19 21:00 Nasal Cannula 2.0 08/01/19 20:00 77 08/01/19 20:00 97.5 86 16 120/60 (80) 94 08/01/19 16:00 77 08/01/19 16:00 98.2 87 20 111/62 (78) 93 08/01/19 12:00 98.2 81 18 102/62 (75) 96 08/01/19 12:00 85 08/01/19 11:01 125 106/70 Height (Feet): 5 Height (Inches): 2.00 Weight (Pounds): 190 Objective General: Awake and alert on 2L NC HEENT: NC/AT. EOMI. no stridor. Cardiovascular: RRR. S1 and S2 normal. No murmur appreciated Resp: Increased work of breathing, tachypnea. Bilateral inspiratory expiratory wheezes with coarse crackles at the bases Abdomen: Abdomen is soft, nondistended. Nontender Microbiology Date/Time Source Procedure Growth Status 07/30/19 18:30 Urine,Clean Catch Urine Culture - Final Mixed Gram Positive Organism Complete Current Medications Medications (Trade) Dose Ordered Sig/Ana Maria Route PRN Reason Start Time Stop Time Status Last Admin Dose Admin Albuterol/ Ipratropium (Albuterol/ Ipratropium) 3 ml Q4H PRN HHN dyspnea 07/29/19 12:00 08/03/19 11:59 07/30/19 20:51 Amlodipine Besylate (Norvasc) 2.5 mg DAILY ORAL 07/31/19 09:00 08/29/19 08:59 08/01/19 11:01 Dextrose (Dextrose 50%) 25 ml Q30M PRN IV Hypoglycemia 07/29/19 12:00 08/28/19 11:59 Dextrose (Dextrose 50%) 50 ml Q30M PRN IV Hypoglycemia 07/29/19 12:00 08/28/19 11:59 Docusate Sodium (Colace) 100 mg THREE TIMES A DAY ORAL 07/30/19 18:00 08/29/19 17:59 08/02/19 09:54 Gabapentin (Neurontin) 300 mg BEDTIME ORAL 07/29/19 21:00 08/28/19 20:59 08/01/19 21:31 Heparin Sodium (Porcine) (Heparin 5000 units/ml) 5,000 units EVERY 12 HOURS SUBQ 07/29/19 21:00 08/28/19 20:59 08/02/19 09:58 Insulin Aspart (NovoLOG) BEFORE MEALS AND HS SUBQ 07/29/19 16:30 08/28/19 16:29 08/02/19 07:01 Levofloxacin (Levaquin) 250 mg Q24H ORAL 07/30/19 12:00 08/06/19 11:59 08/01/19 12:09 Morphine Sulfate (Morphine Sulfate) 2 mg Q4H PRN IVP For Pain 07/29/19 15:15 08/05/19 15:14 08/02/19 01:56 Nateglinide (Starlix) 60 mg TIAC ORAL 07/31/19 16:30 08/30/19 16:29 08/02/19 07:01 Nitroglycerin (Ntg) 0.4 mg Q5M X 3 DOSES PRN SL Prn Chest Pain 07/29/19 12:00 08/28/19 11:59 Ondansetron HCl (Zofran) 4 mg Q6H PRN IVP Nausea & Vomiting 07/29/19 12:00 08/28/19 11:59 Pantoprazole (Protonix) 40 mg EVERY 12 HOURS ORAL 07/30/19 21:00 08/29/19 20:59 08/02/19 09:54 Prednisone (predniSONE) 20 mg DAILY ORAL 08/02/19 09:00 08/31/19 08:59 08/02/19 09:54 Promethazine HCl/ Codeine (Phenergan with Codeine) 5 ml Q6H PRN ORAL cough 07/29/19 12:00 08/28/19 11:59 07/31/19 21:56 Temazepam (Restoril) 15 mg HSPRN PRN ORAL Insomnia 07/29/19 12:00 08/05/19 11:59 Theophylline (Sixto-Dur) 100 mg EVERY 12 HOURS ORAL 07/29/19 21:00 08/28/19 20:59 08/02/19 09:54 Esvin Oropeza MD Aug 02, 2019 10:33
--- NOTE | 2019-08-02 11:19 | Surgery Progress Note ---
Surgery Progress Note Subjective Symptoms: improved, pain absent, tolerating diet, voiding well, passing flatus , BM Objective Last 24 Hour Vital Signs Date Time Temp Pulse Resp B/P (MAP) Pulse Ox O2 Delivery O2 Flow Rate FiO2 08/02/19 10:33 Nasal Cannula 2.0 08/02/19 07:00 100 18 91 Nasal Cannula 2.0 28 08/02/19 07:00 91 Nasal Cannula 2.0 28 08/02/19 04:00 95 08/02/19 04:00 98.1 83 18 141/56 (84) 98 08/02/19 02:26 98.1 08/02/19 00:00 98.1 82 16 114/54 (74) 98 08/01/19 21:00 86 16 120/60 (80) 94 08/01/19 21:00 Nasal Cannula 2.0 08/01/19 20:00 77 08/01/19 20:00 97.5 86 16 120/60 (80) 94 08/01/19 16:00 77 08/01/19 16:00 98.2 87 20 111/62 (78) 93 08/01/19 12:00 98.2 81 18 102/62 (75) 96 08/01/19 12:00 85 I&O Intake and Output 08/01/19 08/02/19 19:00 07:00 Intake Total 800 ml 720 ml Balance 800 ml 720 ml Intake Oral 800 ml 720 ml # Voids 3 3 Cardiovascular: RSR Respiratory: clear Abdomen: soft, flat, non-tender, present bowel sounds, non-distended Extremities: no edema, no tenderness, no cyanosis Plan Problems: (1) Abdominal pain Assessment & Plan: likely related to ventral incisional hernia see below (2) Ventral incisional hernia Assessment & Plan: mild tender midline supra umbilical around area of prior midline surgical incision, firm non reducible mass noted obese given body habitus unable to completely appreciate exam. tender and states began after episode of coughing There is a fat-containing supra-umbilical hernia measuring about 5 cm transversely. A smaller umbilical hernia also noted measuring about 2 cm. There is a right inguinal hernia and a smaller left inguinal hernia containing fat. There is no free fluid. diet as tolerated discussed with patient. no interest in elective hernia repair at this time outpatient follow up leukocytosis likely related to steroids respiratory as per pulm improving tolerating diet, comfortable, no n/v/f/c pain resolved trend labs will follow with recommendations thank you Westley Menjivar Aug 02, 2019 11:19
--- NOTE | 2019-08-02 11:52 | NUR ---
RD ASSESSMENT & RECOMMENDATIONS SEE CARE ACTIVITY FOR COMPLETE ASSESSMENT DAILY ESTIMATED NEEDS: Needs based on DM, obesity/ 58.8kg abw 25-28 kcals/kg 5225-1974 total kcals 1-1.3 g protein/kg 59-77 g total protein 25-30 mL/kg 2479-5891 total fluid mLs NUTRITION DIAGNOSIS: (1) Altered nutrition related lab values R/T diabetes, on steroidal med, clinical condition as evidenced by hyperglycemia w/ POC glu (190 327 235), pt on prednisone, critically elev WBC (23.1*), CURRENT DIET:CCHO MED, soft easy chew PO DIET RECOMMENDATIONS: CCHO LOW (texture as tolerated) ADDITIONAL RECOMMENDATIONS: * Standing weight as able for accurate CBW * Replete lytes as needed * Monitor BGs closely- monitor need for long acting insulin w/ continued hyperglycemia
[2019-08-02 12:00] VITALS: BP 114/67
--- NOTE | 2019-08-02 12:27 | Nephrology Progress Note ---
Assessment/Plan Problem List: (1) Hypotension (2) Diabetic nephropathy (3) Electrolyte imbalance (4) Diabetes mellitus Assessment: 3+ protein (5) Obesity (BMI 30.0-34.9) Assessment Low BP- Mild Low Na COPD- exac HTN now BP low DM2 Hepatitis B HLD former smoker s/p cholecystectomy obesity Plan adjust BP meds taper steroids as possible- now on PO Anemia richardson check UA Subjective ROS Limited/Unobtainable: No Constitutional: Reports: malaise Objective Objective Last 24 Hour Vital Signs Date Time Temp Pulse Resp B/P (MAP) Pulse Ox O2 Delivery O2 Flow Rate FiO2 08/02/19 10:33 Nasal Cannula 2.0 08/02/19 07:00 100 18 91 Nasal Cannula 2.0 28 08/02/19 07:00 91 Nasal Cannula 2.0 28 08/02/19 04:00 95 08/02/19 04:00 98.1 83 18 141/56 (84) 98 08/02/19 02:26 98.1 08/02/19 00:00 98.1 82 16 114/54 (74) 98 08/01/19 21:00 86 16 120/60 (80) 94 08/01/19 21:00 Nasal Cannula 2.0 08/01/19 20:00 77 08/01/19 20:00 97.5 86 16 120/60 (80) 94 08/01/19 16:00 77 08/01/19 16:00 98.2 87 20 111/62 (78) 93 Intake and Output 08/01/19 08/02/19 19:00 07:00 Intake Total 800 ml 720 ml Balance 800 ml 720 ml Intake Oral 800 ml 720 ml # Voids 3 3 Height (Feet): 5 Height (Inches): 2.00 Weight (Pounds): 190 General Appearance: no apparent distress Objective no change Zacarias Crystal MD Aug 02, 2019 12:27
[2019-08-02 16:00] VITALS: BP 117/61
--- NOTE | 2019-08-02 18:19 | NUR ---
pt in bed [id number] sitting at the edge of bed reading a book no s/s of acute distress will cont to monitor
[2019-08-02 20:00] VITALS: BP 121/58
--- NOTE | 2019-08-02 20:50 | General Progress Note ---
Assessment/Plan Problem List: (1) Diabetic nephropathy ICD Codes: E11.21 - Type 2 diabetes mellitus with diabetic nephropathy SNOMED: 393288835 (2) Anemia ICD Codes: D64.9 - Anemia, unspecified SNOMED: 261464571 (3) Diabetes mellitus ICD Codes: E11.9 - Type 2 diabetes mellitus without complications SNOMED: 35126186 (4) COPD exacerbation ICD Codes: J44.1 - Chronic obstructive pulmonary disease with (acute) exacerbation SNOMED: 568884674 (5) Chronic liver disease ICD Codes: K76.9 - Liver disease, unspecified SNOMED: 324605285 (6) Acute hypoxemic respiratory failure ICD Codes: J96.01 - Acute respiratory failure with hypoxia SNOMED: 585006667 Status: unchanged Assessment/Plan: resp insuff no wheezing copd dn reviewed chart and labs afebrile cpt Subjective ROS Limited/Unobtainable: Yes Constitutional: Denies: no symptoms, chills, diaphoresis, fever, malaise, weakness, other Allergies: Coded Allergies: No Known Allergies (Unverified , 06/17/12) Objective Last 24 Hour Vital Signs Date Time Temp Pulse Resp B/P (MAP) Pulse Ox O2 Delivery O2 Flow Rate FiO2 08/02/19 16:00 97.8 92 20 117/61 (79) 95 08/02/19 12:46 89 08/02/19 12:00 97.5 86 20 114/67 (83) 95 08/02/19 10:33 Nasal Cannula 2.0 08/02/19 08:00 88 08/02/19 08:00 97.7 89 20 102/60 (74) 95 08/02/19 07:00 100 18 91 Nasal Cannula 2.0 28 08/02/19 07:00 91 Nasal Cannula 2.0 28 08/02/19 04:00 95 08/02/19 04:00 98.1 83 18 141/56 (84) 98 08/02/19 02:26 98.1 08/02/19 00:00 98.1 82 16 114/54 (74) 98 08/01/19 21:00 86 16 120/60 (80) 94 08/01/19 21:00 Nasal Cannula 2.0 Intake and Output 08/01/19 08/02/19 19:00 07:00 Intake Total 800 ml 720 ml Balance 800 ml 720 ml Intake Oral 800 ml 720 ml # Voids 3 3 Height (Feet): 5 Height (Inches): 2.00 Weight (Pounds): 190 Neck: supple Cardiovascular: normal rate Abdomen: soft Efren Taylor MD Aug 02, 2019 20:50
[2019-08-03] VITALS: BP 100/57
[2019-08-03 04:00] VITALS: BP 147/59
[2019-08-03] MEDS: NovoLOG Insulin Flexpen SUBQ SCH ×4 (06:30→22:01)
[2019-08-03] MEDS: Nateglinide 60mg tab ORAL SCH ×3 (06:45→16:30)
--- NOTE | 2019-08-03 07:15 | NUR ---
HAND-OFF: Report given to Ralph MCGEE.
[2019-08-03 08:00] VITALS: BP 127/66
[2019-08-03] MEDS: Albuterol/Ipratropium 3ml neb HHN PRN (08:33)
[2019-08-03 08:35] LABS: BASOPHILS % (AUTO) 0.6 % (0.0-2.0); EOSINOPHILS % (AUTO) 3.1 % (0.0-3.0); HEMATOCRIT 32.4 % (37.0-47.0); HEMOGLOBIN 10.1 G/DL (12.0-16.0); LYMPHOCYTES % (AUTO) 20.1 % (20.0-45.0); MEAN CORPUSCULAR VOLUME 81 FL (80-99); MONOCYTES % (AUTO) 7.1 % (1.0-10.0); NEUTROPHILS % (AUTO) 69.1 % (45.0-75.0); PLATELET COUNT 218 K/UL (150-450); RED CELL DISTRIBUTION WIDTH 17.6 % (11.6-14.8); WHITE BLOOD COUNT 16.8 K/UL (4.8-10.8)
--- NOTE | 2019-08-03 08:39 | Pulmonology Progress Note ---
Assessment/Plan Problems: (1) COPD exacerbation (2) Chronic liver disease (3) COPD (chronic obstructive pulmonary disease) Assessment/Plan wbc remains high, pending from today respiratory treatment check sputum, still pending abx on Levofloxacin dc steroids, f/u liver enzymes dvt prophylaxis. Subjective ROS Limited/Unobtainable: No Interval Events: doing better Allergies: Coded Allergies: No Known Allergies (Unverified , 06/17/12) Objective Last 24 Hour Vital Signs Date Time Temp Pulse Resp B/P (MAP) Pulse Ox O2 Delivery O2 Flow Rate FiO2 08/03/19 08:30 97 20 97 Nasal Cannula 2.0 28 99 20 92 08/03/19 08:18 92 Nasal Cannula 2.0 28 08/03/19 08:17 99 20 92 Nasal Cannula 2.0 28 08/03/19 04:00 77 08/03/19 04:00 97.7 81 20 147/59 (88) 96 08/03/19 00:00 97.7 86 20 100/57 (71) 95 08/03/19 00:00 81 08/02/19 21:39 97.8 08/02/19 21:00 Nasal Cannula 2.0 08/02/19 20:00 93 Nasal Cannula 2.0 28 08/02/19 20:00 97.7 94 20 121/58 (79) 95 08/02/19 20:00 96 18 93 Nasal Cannula 2.0 28 08/02/19 20:00 93 08/02/19 16:00 97.8 92 20 117/61 (79) 95 08/02/19 16:00 89 08/02/19 12:46 89 08/02/19 12:00 97.5 86 20 114/67 (83) 95 08/02/19 10:33 Nasal Cannula 2.0 Intake and Output 08/02/19 08/03/19 19:00 07:00 Intake Total 840 ml Balance 840 ml Intake Oral 840 ml # Voids 1 2 Objective General Appearance: WD/WN HEENT: normocephalic, atraumatic Respiratory/Chest: chest wall non-tender, decreased breath sounds Cardiovascular: normal peripheral pulses, regular rhythm Abdomen: normal bowel sounds, no organomegaly Genitourinary: normal external genitalia Extremities: no cyanosis Neurologic/Psychiatric: drug safety specialist II-XII grossly normal, abnormal gait Lymphatic: no neck adenopathy Laboratory Tests 08/03/19 05:39: White Blood Count [Pending], Red Blood Count [Pending], Hemoglobin [Pending], Hematocrit [Pending], Mean Corpuscular Volume [Pending], Mean Corpuscular Hemoglobin [Pending], Mean Corpuscular Hemoglobin Concent [Pending], Red Cell Distribution Width [Pending], Platelet Count [Pending], Mean Platelet Volume [ Pending], Neutrophils (%) (Auto) [Pending], Lymphocytes (%) (Auto) [Pending], Monocytes (%) (Auto) [Pending], Eosinophils (%) (Auto) [Pending], Basophils (%) (Auto) [Pending], Erythrocyte Sedimentation Rate [Pending], Sodium Level [ Pending], Potassium Level [Pending], Chloride Level [Pending], Carbon Dioxide Level [Pending], Blood Urea Nitrogen [Pending], Creatinine [Pending], Estimat Glomerular Filtration Rate [Pending], Glucose Level [Pending], Calcium Level [ Pending], Phosphorus Level [Pending], Magnesium Level [Pending], Total Bilirubin [Pending], Aspartate Amino Transf (AST/SGOT) [Pending], Alanine Aminotransferase (ALT/SGPT) [Pending], Alkaline Phosphatase [Pending], C- Reactive Protein, Quantitative [Pending], Total Protein [Pending], Albumin [ Pending], Globulin [Pending] Current Medications Medications (Trade) Dose Ordered Sig/Ana Maria Route PRN Reason Start Time Stop Time Status Last Admin Dose Admin Albuterol/ Ipratropium (Albuterol/ Ipratropium) 3 ml Q4H PRN HHN dyspnea 07/29/19 12:00 08/03/19 11:59 08/03/19 08:33 Amlodipine Besylate (Norvasc) 2.5 mg DAILY ORAL 07/31/19 09:00 08/29/19 08:59 08/01/19 11:01 Dextrose (Dextrose 50%) 25 ml Q30M PRN IV Hypoglycemia 07/29/19 12:00 08/28/19 11:59 Dextrose (Dextrose 50%) 50 ml Q30M PRN IV Hypoglycemia 07/29/19 12:00 08/28/19 11:59 Docusate Sodium (Colace) 100 mg THREE TIMES A DAY ORAL 07/30/19 18:00 08/29/19 17:59 08/02/19 17:00 Gabapentin (Neurontin) 300 mg BEDTIME ORAL 07/29/19 21:00 08/28/19 20:59 08/01/19 21:31 Heparin Sodium (Porcine) (Heparin 5000 units/ml) 5,000 units EVERY 12 HOURS SUBQ 07/29/19 21:00 08/28/19 20:59 08/02/19 21:10 Insulin Aspart (NovoLOG) BEFORE MEALS AND HS SUBQ 07/29/19 16:30 08/28/19 16:29 08/02/19 21:27 Levofloxacin (Levaquin) 250 mg Q24H ORAL 07/30/19 12:00 08/06/19 11:59 08/02/19 12:10 Morphine Sulfate (Morphine Sulfate) 2 mg Q4H PRN IVP For Pain 07/29/19 15:15 08/05/19 15:14 08/02/19 21:09 Nateglinide (Starlix) 60 mg TIAC ORAL 07/31/19 16:30 08/30/19 16:29 08/03/19 06:45 Nitroglycerin (Ntg) 0.4 mg Q5M X 3 DOSES PRN SL Prn Chest Pain 07/29/19 12:00 08/28/19 11:59 Ondansetron HCl (Zofran) 4 mg Q6H PRN IVP Nausea & Vomiting 07/29/19 12:00 08/28/19 11:59 Pantoprazole (Protonix) 40 mg EVERY 12 HOURS ORAL 07/30/19 21:00 08/29/19 20:59 08/02/19 21:09 Prednisone (predniSONE) 20 mg DAILY ORAL 08/02/19 09:00 08/31/19 08:59 08/02/19 09:54 Promethazine HCl/ Codeine (Phenergan with Codeine) 5 ml Q6H PRN ORAL cough 07/29/19 12:00 08/28/19 11:59 07/31/19 21:56 Temazepam (Restoril) 15 mg HSPRN PRN ORAL Insomnia 07/29/19 12:00 08/05/19 11:59 Theophylline (Sixto-Dur) 100 mg EVERY 12 HOURS ORAL 07/29/19 21:00 08/28/19 20:59 08/02/19 21:09 Monika Sarmiento MD Aug 03, 2019 08:39
[2019-08-03 08:58] LABS: ALANINE AMINOTRANSFERASE 31 U/L (12-78); ALBUMIN 2.6 G/DL (3.4-5.0); ALBUMIN/GLOBULIN RATIO 0.6 (1.0-2.7); ALKALINE PHOSPHATASE 93 U/L (46-116); ANION GAP 8 mmol/L (5-15); ASPARTATE AMINO TRANSFERASE 16 U/L (15-37); BILIRUBIN,TOTAL 0.2 MG/DL (0.2-1.0); BLOOD UREA NITROGEN 21 mg/dL (7-18); CALCIUM 8.3 MG/DL (8.5-10.1); CARBON DIOXIDE 26 MMOL/L (21-32); CHLORIDE 106 MMOL/L (98-107); CREATININE 0.9 MG/DL (0.55-1.30); PHOSPHORUS 2.7 MG/DL (2.5-4.9); POTASSIUM 3.9 MMOL/L (3.5-5.1); SODIUM 140 MMOL/L (136-145)
[2019-08-03] MEDS: Docusate 100mg cap ORAL SCH ×3 (09:16→17:42)
[2019-08-03] MEDS: Theophylline ER 100mg ORAL SCH ×2 (09:17→21:59)
[2019-08-03] MEDS: Heparin 5000 units/ml inj SUBQ SCH ×2 (09:18→22:01)
--- NOTE | 2019-08-03 10:57 | NUR ---
pt in bed sitting at edge of bed on 2l nc no s/s of acute distress will sont to monitor.
--- NOTE | 2019-08-03 11:29 | Surgery Progress Note ---
Surgery Progress Note Subjective Symptoms: improved, tolerating diet, difficulty voiding, passing flatus, BM Objective Last 24 Hour Vital Signs Date Time Temp Pulse Resp B/P (MAP) Pulse Ox O2 Delivery O2 Flow Rate FiO2 08/03/19 10:38 Nasal Cannula 2.0 08/03/19 09:17 90 127/66 08/03/19 08:30 97 20 97 Nasal Cannula 2.0 28 99 20 92 08/03/19 08:18 92 Nasal Cannula 2.0 28 08/03/19 08:17 99 20 92 Nasal Cannula 2.0 28 08/03/19 04:00 77 08/03/19 04:00 97.7 81 20 147/59 (88) 96 08/03/19 00:00 97.7 86 20 100/57 (71) 95 08/03/19 00:00 81 08/02/19 21:39 97.8 08/02/19 21:00 Nasal Cannula 2.0 08/02/19 20:00 93 Nasal Cannula 2.0 28 08/02/19 20:00 97.7 94 20 121/58 (79) 95 08/02/19 20:00 96 18 93 Nasal Cannula 2.0 28 08/02/19 20:00 93 08/02/19 16:00 97.8 92 20 117/61 (79) 95 08/02/19 16:00 89 08/02/19 12:46 89 08/02/19 12:00 97.5 86 20 114/67 (83) 95 I&O Intake and Output 08/02/19 08/03/19 19:00 07:00 Intake Total 840 ml Balance 840 ml Intake Oral 840 ml # Voids 1 2 Cardiovascular: RSR Respiratory: clear Abdomen: soft, non-tender, present bowel sounds Extremities: no edema, no tenderness, no cyanosis Laboratory Tests Test 08/03/19 05:39 White Blood Count 16.8 K/UL (4.8-10.8) H Red Blood Count 4.00 M/UL (4.20-5.40) L Hemoglobin 10.1 G/DL (12.0-16.0) L Hematocrit 32.4 % (37.0-47.0) L Mean Corpuscular Volume 81 FL (80-99) Mean Corpuscular Hemoglobin 25.3 PG (27.0-31.0) L Mean Corpuscular Hemoglobin Concent 31.2 G/DL (32.0-36.0) L Red Cell Distribution Width 17.6 % (11.6-14.8) H Platelet Count 218 K/UL (150-450) Mean Platelet Volume 6.6 FL (6.5-10.1) Neutrophils (%) (Auto) 69.1 % (45.0-75.0) Lymphocytes (%) (Auto) 20.1 % (20.0-45.0) Monocytes (%) (Auto) 7.1 % (1.0-10.0) Eosinophils (%) (Auto) 3.1 % (0.0-3.0) H Basophils (%) (Auto) 0.6 % (0.0-2.0) Erythrocyte Sedimentation Rate 45 MM/HR (0-30) H Sodium Level 140 MMOL/L (136-145) Potassium Level 3.9 MMOL/L (3.5-5.1) Chloride Level 106 MMOL/L (98-107) Carbon Dioxide Level 26 MMOL/L (21-32) Anion Gap 8 mmol/L (5-15) Blood Urea Nitrogen 21 mg/dL (7-18) H Creatinine 0.9 MG/DL (0.55-1.30) Estimat Glomerular Filtration Rate mL/min (>60) Glucose Level 123 MG/DL (74-106) H Calcium Level 8.3 MG/DL (8.5-10.1) L Phosphorus Level 2.7 MG/DL (2.5-4.9) Magnesium Level 1.8 MG/DL (1.8-2.4) Total Bilirubin 0.2 MG/DL (0.2-1.0) Aspartate Amino Transf (AST/SGOT) 16 U/L (15-37) Alanine Aminotransferase (ALT/SGPT) 31 U/L (12-78) Alkaline Phosphatase 93 U/L (46-116) C-Reactive Protein, Quantitative 0.7 mg/dL (0.00-0.90) Total Protein 6.9 G/DL (6.4-8.2) Albumin 2.6 G/DL (3.4-5.0) L Globulin 4.3 g/dL Albumin/Globulin Ratio 0.6 (1.0-2.7) L Plan Problems: (1) Abdominal pain Assessment & Plan: likely related to ventral incisional hernia see below (2) Ventral incisional hernia Assessment & Plan: mild tender midline supra umbilical around area of prior midline surgical incision, firm non reducible mass noted obese given body habitus unable to completely appreciate exam. tender and states began after episode of coughing There is a fat-containing supra-umbilical hernia measuring about 5 cm transversely. A smaller umbilical hernia also noted measuring about 2 cm. There is a right inguinal hernia and a smaller left inguinal hernia containing fat. There is no free fluid. diet as tolerated discussed with patient. no interest in elective hernia repair at this time outpatient follow up leukocytosis likely related to steroids respiratory as per pulm improving tolerating diet, comfortable, no n/v/f/c pain resolved trend labs will follow with recommendations thank you Westley Menjivar Aug 03, 2019 11:29
[2019-08-03 12:00] VITALS: BP 139/64
--- NOTE | 2019-08-03 16:04 | Nephrology Progress Note ---
Assessment/Plan Problem List: (1) Hypotension (2) Diabetic nephropathy (3) Electrolyte imbalance (4) Diabetes mellitus Assessment: 3+ protein (5) Obesity (BMI 30.0-34.9) Assessment Low BP- Mild Low Na COPD- exac HTN now BP low DM2 Hepatitis B HLD former smoker s/p cholecystectomy obesity Plan normal lytes adjust BP meds taper steroids as possible- now on PO Anemia richardson check UA Subjective ROS Limited/Unobtainable: No Constitutional: Reports: malaise Objective Objective Last 24 Hour Vital Signs Date Time Temp Pulse Resp B/P (MAP) Pulse Ox O2 Delivery O2 Flow Rate FiO2 08/03/19 12:00 91 08/03/19 10:38 Nasal Cannula 2.0 08/03/19 09:17 90 127/66 08/03/19 08:30 97 20 97 Nasal Cannula 2.0 28 99 20 92 08/03/19 08:18 92 Nasal Cannula 2.0 28 08/03/19 08:17 99 20 92 Nasal Cannula 2.0 28 08/03/19 08:00 92 08/03/19 04:00 77 08/03/19 04:00 97.7 81 20 147/59 (88) 96 08/03/19 00:00 97.7 86 20 100/57 (71) 95 08/03/19 00:00 81 08/02/19 21:39 97.8 08/02/19 21:00 Nasal Cannula 2.0 08/02/19 20:00 93 Nasal Cannula 2.0 28 08/02/19 20:00 97.7 94 20 121/58 (79) 95 08/02/19 20:00 96 18 93 Nasal Cannula 2.0 28 08/02/19 20:00 93 Intake and Output 08/02/19 08/03/19 19:00 07:00 Intake Total 840 ml Balance 840 ml Intake Oral 840 ml # Voids 1 2 Laboratory Tests 08/03/19 05:39: White Blood Count 16.8H, Red Blood Count 4.00L, Hemoglobin 10.1L, Hematocrit 32.4L, Mean Corpuscular Volume 81, Mean Corpuscular Hemoglobin 25.3L, Mean Corpuscular Hemoglobin Concent 31.2L, Red Cell Distribution Width 17.6H, Platelet Count 218, Mean Platelet Volume 6.6, Neutrophils (%) (Auto) 69.1, Lymphocytes (%) (Auto) 20.1, Monocytes (%) (Auto) 7.1, Eosinophils (%) (Auto) 3.1H, Basophils (%) (Auto) 0.6, Erythrocyte Sedimentation Rate 45H, Sodium Level 140, Potassium Level 3.9, Chloride Level 106, Carbon Dioxide Level 26, Anion Gap 8, Blood Urea Nitrogen 21H, Creatinine 0.9, Estimat Glomerular Filtration Rate , Glucose Level 123H, Calcium Level 8.3L, Phosphorus Level 2.7, Magnesium Level 1.8, Total Bilirubin 0.2, Aspartate Amino Transf (AST/SGOT) 16, Alanine Aminotransferase (ALT/SGPT) 31, Alkaline Phosphatase 93, C-Reactive Protein, Quantitative 0.7, Total Protein 6.9, Albumin 2.6L, Globulin 4.3, Albumin/Globulin Ratio 0.6L Height (Feet): 5 Height (Inches): 2.00 Weight (Pounds): 190 General Appearance: no apparent distress Objective no change Zacarias Crystal MD Aug 03, 2019 16:04
[2019-08-03 18:15] VITALS: BP 110/61
--- NOTE | 2019-08-03 18:28 | NUR ---
pt in bed watching tv no s/s of acute distress noted will cont to monitor.
[2019-08-03 20:00] VITALS: BP 129/77
--- NOTE | 2019-08-03 20:00 | NUR ---
NURSE NOTES: Received report from Ralph MCGEE. Pt in stable condition. Denies any pain. No s/s of distress or discomfort noted. Pt resting in bed comfortably. Bed in low and locked position, call light within reach, bedside table within reach. Continue to monitor.
--- NOTE | 2019-08-03 22:08 | General Progress Note ---
Assessment/Plan Problem List: (1) Diabetic nephropathy ICD Codes: E11.21 - Type 2 diabetes mellitus with diabetic nephropathy SNOMED: 906214733 (2) Anemia ICD Codes: D64.9 - Anemia, unspecified SNOMED: 731378642 (3) Diabetes mellitus ICD Codes: E11.9 - Type 2 diabetes mellitus without complications SNOMED: 90424245 (4) COPD exacerbation ICD Codes: J44.1 - Chronic obstructive pulmonary disease with (acute) exacerbation SNOMED: 302330015 (5) Chronic liver disease ICD Codes: K76.9 - Liver disease, unspecified SNOMED: 595537664 (6) Acute hypoxemic respiratory failure ICD Codes: J96.01 - Acute respiratory failure with hypoxia SNOMED: 032244497 Status: progressing, unchanged Assessment/Plan: resp insuff copd liver disease dm check sugar afebrile Subjective ROS Limited/Unobtainable: Yes Allergies: Coded Allergies: No Known Allergies (Unverified , 06/17/12) Objective Last 24 Hour Vital Signs Date Time Temp Pulse Resp B/P (MAP) Pulse Ox O2 Delivery O2 Flow Rate FiO2 08/03/19 19:40 92 Nasal Cannula 2.0 28 08/03/19 19:39 98 18 92 Nasal Cannula 2.0 28 08/03/19 18:15 98.2 81 20 110/61 (77) 98 08/03/19 18:12 91 08/03/19 12:00 98.1 85 16 139/64 (89) 96 08/03/19 12:00 91 08/03/19 10:38 Nasal Cannula 2.0 08/03/19 09:17 90 127/66 08/03/19 08:30 97 20 97 Nasal Cannula 2.0 28 99 20 92 08/03/19 08:18 92 Nasal Cannula 2.0 28 08/03/19 08:17 99 20 92 Nasal Cannula 2.0 28 08/03/19 08:00 92 08/03/19 08:00 99.2 90 16 127/66 (86) 90 08/03/19 04:00 77 08/03/19 04:00 97.7 81 20 147/59 (88) 96 08/03/19 00:00 97.7 86 20 100/57 (71) 95 08/03/19 00:00 81 Intake and Output 08/02/19 08/03/19 19:00 07:00 Intake Total 840 ml Balance 840 ml Intake Oral 840 ml # Voids 1 2 Laboratory Tests 08/03/19 05:39: White Blood Count 16.8H, Red Blood Count 4.00L, Hemoglobin 10.1L, Hematocrit 32.4L, Mean Corpuscular Volume 81, Mean Corpuscular Hemoglobin 25.3L, Mean Corpuscular Hemoglobin Concent 31.2L, Red Cell Distribution Width 17.6H, Platelet Count 218, Mean Platelet Volume 6.6, Neutrophils (%) (Auto) 69.1, Lymphocytes (%) (Auto) 20.1, Monocytes (%) (Auto) 7.1, Eosinophils (%) (Auto) 3.1H, Basophils (%) (Auto) 0.6, Erythrocyte Sedimentation Rate 45H, Sodium Level 140, Potassium Level 3.9, Chloride Level 106, Carbon Dioxide Level 26, Anion Gap 8, Blood Urea Nitrogen 21H, Creatinine 0.9, Estimat Glomerular Filtration Rate , Glucose Level 123H, Calcium Level 8.3L, Phosphorus Level 2.7, Magnesium Level 1.8, Total Bilirubin 0.2, Aspartate Amino Transf (AST/SGOT) 16, Alanine Aminotransferase (ALT/SGPT) 31, Alkaline Phosphatase 93, C-Reactive Protein, Quantitative 0.7, Total Protein 6.9, Albumin 2.6L, Globulin 4.3, Albumin/Globulin Ratio 0.6L Height (Feet): 5 Height (Inches): 2.00 Weight (Pounds): 190 Neck: supple Cardiovascular: normal rate Respiratory/Chest: lungs clear Efren Taylor MD Aug 03, 2019 22:08
[2019-08-03] MEDS: Morphine Sulfate 2mg/ml Inj(IV/IM USE ONLY) IVP PRN (22:11)
[2019-08-04] MEDS: NovoLOG Insulin Flexpen SUBQ SCH ×2 (06:29→12:39)
[2019-08-04] MEDS: Nateglinide 60mg tab ORAL SCH ×2 (06:47→12:38)
[2019-08-04 07:49] LABS: BASOPHILS % (AUTO) 0.5 % (0.0-2.0); HEMOGLOBIN 10.2 G/DL (12.0-16.0); LYMPHOCYTES % (AUTO) 16.4 % (20.0-45.0); MEAN CORPUSCULAR VOLUME 80 FL (80-99); NEUTROPHILS % (AUTO) 71.1 % (45.0-75.0); PLATELET COUNT 231 K/UL (150-450); RED CELL DISTRIBUTION WIDTH 16.9 % (11.6-14.8); WHITE BLOOD COUNT 17.3 K/UL (4.8-10.8)
[2019-08-04 08:00] VITALS: BP 100/65
--- NOTE | 2019-08-04 08:06 | NUR ---
NURSE NOTES: Received report from Hansa MCGEE. Pt in Bed awake and orientedx4. Denies any pain or SOB. On O2 2LPM via N/C. Bed in low and locked. Call light within reach. Side railx2 up for safety. Continue to monitor.
--- NOTE | 2019-08-04 08:06 | NUR ---
HAND-OFF: Report given to Min, RN
[2019-08-04 08:21] LABS: ALANINE AMINOTRANSFERASE 27 U/L (12-78); ALBUMIN 2.5 G/DL (3.4-5.0); ALBUMIN/GLOBULIN RATIO 0.6 (1.0-2.7); ALKALINE PHOSPHATASE 81 U/L (46-116); ANION GAP 9 mmol/L (5-15); ASPARTATE AMINO TRANSFERASE 14 U/L (15-37); BILIRUBIN,TOTAL 0.3 MG/DL (0.2-1.0); BLOOD UREA NITROGEN 20 mg/dL (7-18); CALCIUM 8.1 MG/DL (8.5-10.1); CARBON DIOXIDE 25 MMOL/L (21-32); CHLORIDE 103 MMOL/L (98-107); CREATININE 1.1 MG/DL (0.55-1.30); PHOSPHORUS 3.1 MG/DL (2.5-4.9); POTASSIUM 3.9 MMOL/L (3.5-5.1); SODIUM 137 MMOL/L (136-145)
[2019-08-04] MEDS: Heparin 5000 units/ml inj SUBQ SCH (09:00)
[2019-08-04] MEDS: Docusate 100mg cap ORAL SCH ×2 (09:16→12:38)
[2019-08-04] MEDS: Theophylline ER 100mg ORAL SCH (09:16)
--- NOTE | 2019-08-04 09:42 | General Progress Note ---
Assessment/Plan Problem List: (1) Anemia ICD Codes: D64.9 - Anemia, unspecified SNOMED: 111588584 (2) Ventral incisional hernia ICD Codes: K43.2 - Incisional hernia without obstruction or gangrene SNOMED: 047012925 (3) Sepsis ICD Codes: A41.9 - Sepsis, unspecified organism SNOMED: 24307985 (4) Community acquired pneumonia ICD Codes: J18.9 - Pneumonia, unspecified organism SNOMED: 526293621 (5) Diabetes mellitus ICD Codes: E11.9 - Type 2 diabetes mellitus without complications SNOMED: 85302582 (6) COPD exacerbation ICD Codes: J44.1 - Chronic obstructive pulmonary disease with (acute) exacerbation SNOMED: 872915961 Status: progressing, unchanged Assessment/Plan: o2 pulm tx abx pt diet eval cbc bmp am dc if all clear Subjective Constitutional: Reports: weakness Allergies: Coded Allergies: No Known Allergies (Unverified , 06/17/12) All Systems: reviewed and negative except above Subjective feeling better Objective Last 24 Hour Vital Signs Date Time Temp Pulse Resp B/P (MAP) Pulse Ox O2 Delivery O2 Flow Rate FiO2 08/04/19 09:16 110 100/65 08/04/19 09:00 Nasal Cannula 2.0 08/04/19 08:00 98.2 110 18 100/65 (77) 93 08/04/19 04:25 101 08/04/19 00:00 98 08/03/19 21:01 Nasal Cannula 2.0 08/03/19 20:01 103 08/03/19 20:00 98.1 102 17 129/77 (94) 92 08/03/19 19:40 92 Nasal Cannula 2.0 28 08/03/19 19:39 98 18 92 Nasal Cannula 2.0 28 08/03/19 18:15 98.2 81 20 110/61 (77) 98 08/03/19 18:12 91 08/03/19 12:00 98.1 85 16 139/64 (89) 96 08/03/19 12:00 91 08/03/19 10:38 Nasal Cannula 2.0 Intake and Output 08/03/19 08/04/19 19:00 07:00 Intake Total 300 ml Balance 300 ml Intake Oral 300 ml # Voids 3 3 Laboratory Tests 1/27/20 06:00: White Blood Count 17.3H, Red Blood Count 4.00L, Hemoglobin 10.2L, Hematocrit 32.0L, Mean Corpuscular Volume 80, Mean Corpuscular Hemoglobin 25.5L, Mean Corpuscular Hemoglobin Concent 31.8L, Red Cell Distribution Width 16.9H, Platelet Count 231, Mean Platelet Volume 7.2, Neutrophils (%) (Auto) 71.1, Lymphocytes (%) (Auto) 16.4L, Monocytes (%) (Auto) 7.0, Eosinophils (%) (Auto) 5.0H, Basophils (%) (Auto) 0.5, Erythrocyte Sedimentation Rate 53H, Sodium Level 137, Potassium Level 3.9, Chloride Level 103, Carbon Dioxide Level 25, Anion Gap 9, Blood Urea Nitrogen 20H, Creatinine 1.1, Estimat Glomerular Filtration Rate , Glucose Level 157H, Calcium Level 8.1L, Phosphorus Level 3.1, Magnesium Level 1.7L, Total Bilirubin 0.3, Aspartate Amino Transf (AST/SGOT) 14L , Alanine Aminotransferase (ALT/SGPT) 27, Alkaline Phosphatase 81, C-Reactive Protein, Quantitative 4.7H, Total Protein 6.9, Albumin 2.5L, Globulin 4.4, Albumin/Globulin Ratio 0.6L Height (Feet): 5 Height (Inches): 2.00 Weight (Pounds): 190 General Appearance: lethargic EENT: normal ENT inspection Neck: normal alignment Cardiovascular: normal peripheral pulses, normal rate, regular rhythm Respiratory/Chest: chest wall non-tender, lungs clear, normal breath sounds Abdomen: normal bowel sounds, non tender, soft Extremities: normal inspection Edema: no edema noted Arm (L), no edema noted Arm (R), no edema noted Leg (L), no edema noted Leg (R), no edema noted Pedal (L), no edema noted Pedal (R), no edema noted Generalized Neurologic: responsive, motor weakness Skin: normal pigmentation, warm/dry Jai Siddiqi DO Aug 04, 2019 09:42
--- NOTE | 2019-08-04 10:40 | NUR ---
NURSE NOTES: Turned the oxygen. Noted O2 sat 85-88% on room air. Denied SOB. The patient states that she has a oxygen tank at home.
--- NOTE | 2019-08-04 11:00 | NUR ---
PT NOTE Attempted to see patient for PT treatment. Patient declined to participate, stated that she is getting ready to go home. Min RN aware.
[2019-08-04] MEDS ORDERED: Morphine Sulfate 2mg/ml Inj(IV/IM USE ONLY) IVP PRN (11:15)
--- NOTE | 2019-08-04 11:23 | Pulmonology Progress Note ---
Assessment/Plan Problems: (1) COPD exacerbation (2) Chronic liver disease (3) COPD (chronic obstructive pulmonary disease) Assessment/Plan wbc remains high, respiratory treatment check sputum, still pending abx on Levofloxacin dc steroids, f/u liver enzymes dvt prophylaxis. Subjective ROS Limited/Unobtainable: No Constitutional: Reports: no symptoms HEENT: Repors: no symptoms Respiratory: Reports: no symptoms Allergies: Coded Allergies: No Known Allergies (Unverified , 06/17/12) Objective Last 24 Hour Vital Signs Date Time Temp Pulse Resp B/P (MAP) Pulse Ox O2 Delivery O2 Flow Rate FiO2 08/04/19 09:16 110 100/65 08/04/19 09:00 Nasal Cannula 2.0 08/04/19 08:00 98.2 110 18 100/65 (77) 93 08/04/19 08:00 104 08/04/19 04:25 101 08/04/19 00:00 98 08/03/19 21:01 Nasal Cannula 2.0 08/03/19 20:01 103 08/03/19 20:00 98.1 102 17 129/77 (94) 92 08/03/19 19:40 92 Nasal Cannula 2.0 28 08/03/19 19:39 98 18 92 Nasal Cannula 2.0 28 08/03/19 18:15 98.2 81 20 110/61 (77) 98 08/03/19 18:12 91 08/03/19 12:00 98.1 85 16 139/64 (89) 96 08/03/19 12:00 91 Intake and Output 08/03/19 08/04/19 19:00 07:00 Intake Total 300 ml Balance 300 ml Intake Oral 300 ml # Voids 3 3 Objective General Appearance: WD/WN HEENT: normocephalic, atraumatic Respiratory/Chest: chest wall non-tender, decreased breath sounds Cardiovascular: normal peripheral pulses, regular rhythm Abdomen: normal bowel sounds, no organomegaly Genitourinary: normal external genitalia Extremities: no cyanosis Neurologic/Psychiatric: traffic ii manager II-XII grossly normal, abnormal gait Lymphatic: no neck adenopathy Laboratory Tests 08/04/19 06:00: White Blood Count 17.3H, Red Blood Count 4.00L, Hemoglobin 10.2L, Hematocrit 32.0L, Mean Corpuscular Volume 80, Mean Corpuscular Hemoglobin 25.5L, Mean Corpuscular Hemoglobin Concent 31.8L, Red Cell Distribution Width 16.9H, Platelet Count 231, Mean Platelet Volume 7.2, Neutrophils (%) (Auto) 71.1, Lymphocytes (%) (Auto) 16.4L, Monocytes (%) (Auto) 7.0, Eosinophils (%) (Auto) 5.0H, Basophils (%) (Auto) 0.5, Erythrocyte Sedimentation Rate 53H, Sodium Level 137, Potassium Level 3.9, Chloride Level 103, Carbon Dioxide Level 25, Anion Gap 9, Blood Urea Nitrogen 20H, Creatinine 1.1, Estimat Glomerular Filtration Rate , Glucose Level 157H, Calcium Level 8.1L, Phosphorus Level 3.1, Magnesium Level 1.7L, Total Bilirubin 0.3, Aspartate Amino Transf (AST/SGOT) 14L , Alanine Aminotransferase (ALT/SGPT) 27, Alkaline Phosphatase 81, C-Reactive Protein, Quantitative 4.7H, Total Protein 6.9, Albumin 2.5L, Globulin 4.4, Albumin/Globulin Ratio 0.6L Current Medications Medications (Trade) Dose Ordered Sig/Ana Maria Route PRN Reason Start Time Stop Time Status Last Admin Dose Admin Amlodipine Besylate (Norvasc) 2.5 mg DAILY ORAL 07/31/19 09:00 08/29/19 08:59 08/04/19 09:16 Dextrose (Dextrose 50%) 25 ml Q30M PRN IV Hypoglycemia 07/29/19 12:00 08/28/19 11:59 Dextrose (Dextrose 50%) 50 ml Q30M PRN IV Hypoglycemia 07/29/19 12:00 08/28/19 11:59 Docusate Sodium (Colace) 100 mg THREE TIMES A DAY ORAL 07/30/19 18:00 08/29/19 17:59 08/04/19 09:16 Gabapentin (Neurontin) 300 mg BEDTIME ORAL 07/29/19 21:00 08/28/19 20:59 08/01/19 21:31 Heparin Sodium (Porcine) (Heparin 5000 units/ml) 5,000 units EVERY 12 HOURS SUBQ 07/29/19 21:00 08/28/19 20:59 08/03/19 22:01 Insulin Aspart (NovoLOG) BEFORE MEALS AND HS SUBQ 07/29/19 16:30 08/28/19 16:29 08/03/19 22:01 Levofloxacin (Levaquin) 250 mg Q24H ORAL 07/30/19 12:00 08/06/19 11:59 08/03/19 11:48 Magnesium Oxide (Mag-Ox 400mg) 400 mg THREE TIMES A DAY ORAL 08/04/19 13:00 09/03/19 12:59 Morphine Sulfate (Morphine Sulfate) 2 mg Q4H PRN IVP For Pain 08/04/19 11:15 08/11/19 11:14 Nateglinide (Starlix) 60 mg TIAC ORAL 07/31/19 16:30 08/30/19 16:29 08/04/19 06:47 Nitroglycerin (Ntg) 0.4 mg Q5M X 3 DOSES PRN SL Prn Chest Pain 07/29/19 12:00 08/28/19 11:59 Ondansetron HCl (Zofran) 4 mg Q6H PRN IVP Nausea & Vomiting 07/29/19 12:00 08/28/19 11:59 Pantoprazole (Protonix) 40 mg EVERY 12 HOURS ORAL 07/30/19 21:00 08/29/19 20:59 08/04/19 09:16 Promethazine HCl/ Codeine (Phenergan with Codeine) 5 ml Q6H PRN ORAL cough 07/29/19 12:00 08/28/19 11:59 07/31/19 21:56 Temazepam (Restoril) 15 mg HSPRN PRN ORAL Insomnia 08/04/19 11:00 08/11/19 10:59 Theophylline (Sixto-Dur) 100 mg EVERY 12 HOURS ORAL 07/29/19 21:00 08/28/19 20:59 08/04/19 09:16 Monika Sarmiento MD Aug 04, 2019 11:23
[2019-08-04 11:24] VITALS: BP 120/66
[2019-08-04] MEDS ORDERED: STARLIX60 MG ORAL ×2 (11:25→13:33)
--- NOTE | 2019-08-04 12:51 | Nephrology Progress Note ---
Assessment/Plan Problem List: (1) Hypotension (2) Diabetic nephropathy (3) Electrolyte imbalance (4) Diabetes mellitus Assessment: 3+ protein (5) Obesity (BMI 30.0-34.9) Assessment Low BP- Mild Low Na COPD- exac HTN now BP low DM2 Hepatitis B HLD former smoker s/p cholecystectomy obesity Plan normal lytes Mag supplement adjust BP meds taper steroids as possible- now on PO Anemia richardson check UA Subjective ROS Limited/Unobtainable: No Constitutional: Reports: malaise Objective Objective Last 24 Hour Vital Signs Date Time Temp Pulse Resp B/P (MAP) Pulse Ox O2 Delivery O2 Flow Rate FiO2 08/04/19 11:24 97.7 87 18 120/66 (84) 95 08/04/19 09:16 110 100/65 08/04/19 09:00 Nasal Cannula 2.0 08/04/19 08:00 98.2 110 18 100/65 (77) 93 08/04/19 08:00 104 08/04/19 04:25 101 08/04/19 00:00 98 08/03/19 21:01 Nasal Cannula 2.0 08/03/19 20:01 103 08/03/19 20:00 98.1 102 17 129/77 (94) 92 08/03/19 19:40 92 Nasal Cannula 2.0 28 08/03/19 19:39 98 18 92 Nasal Cannula 2.0 28 08/03/19 18:15 98.2 81 20 110/61 (77) 98 08/03/19 18:12 91 Intake and Output 08/03/19 08/04/19 19:00 07:00 Intake Total 300 ml Balance 300 ml Intake Oral 300 ml # Voids 3 3 Laboratory Tests 08/04/19 06:00: White Blood Count 17.3H, Red Blood Count 4.00L, Hemoglobin 10.2L, Hematocrit 32.0L, Mean Corpuscular Volume 80, Mean Corpuscular Hemoglobin 25.5L, Mean Corpuscular Hemoglobin Concent 31.8L, Red Cell Distribution Width 16.9H, Platelet Count 231, Mean Platelet Volume 7.2, Neutrophils (%) (Auto) 71.1, Lymphocytes (%) (Auto) 16.4L, Monocytes (%) (Auto) 7.0, Eosinophils (%) (Auto) 5.0H, Basophils (%) (Auto) 0.5, Erythrocyte Sedimentation Rate 53H, Sodium Level 137, Potassium Level 3.9, Chloride Level 103, Carbon Dioxide Level 25, Anion Gap 9, Blood Urea Nitrogen 20H, Creatinine 1.1, Estimat Glomerular Filtration Rate , Glucose Level 157H, Calcium Level 8.1L, Phosphorus Level 3.1, Magnesium Level 1.7L, Total Bilirubin 0.3, Aspartate Amino Transf (AST/SGOT) 14L , Alanine Aminotransferase (ALT/SGPT) 27, Alkaline Phosphatase 81, C-Reactive Protein, Quantitative 4.7H, Total Protein 6.9, Albumin 2.5L, Globulin 4.4, Albumin/Globulin Ratio 0.6L Height (Feet): 5 Height (Inches): 2.00 Weight (Pounds): 190 General Appearance: no apparent distress Cardiovascular: tachycardia Respiratory/Chest: decreased breath sounds Abdomen: soft, other - obese Objective no change Zacarias Crystal MD Aug 04, 2019 12:50
[2019-08-04] MEDS ORDERED: Magnesium Oxide 400mg tab ORAL SCH (13:00)
[2019-08-04] MEDS ORDERED: NORVASC2.5 MG ORAL (13:24)
[2019-08-04] MEDS ORDERED: COLACE100 MG ORAL (13:25)
[2019-08-04] MEDS ORDERED: MAGNESIUM400 M1 PO (13:27)
[2019-08-04] MEDS ORDERED: PANTOPRAZOLE SO40 MG ORAL (13:28)
[2019-08-04] MEDS ORDERED: THEOPHYLLINE A200 MG PO (13:30)
[2019-08-04] MEDS ORDERED: TEMAZEPAM15 MG ORAL (13:31)
--- NOTE | 2019-08-04 13:35 | Infectious Diseases Prog Note ---
Assessment/Plan Assessment/Plan Assessment: COPD exacerbation URI syndrome -influenza sc neg -CXR: Increased bilateral interstitial congestion, since prior exam 07/21/2019 -spc x normal resp luisana (prelim) Pulmonary congestion Afebrile Leukocytosis, increased (s/p high dose sterodis); now improving -u/a neg; ucx NTD -07/30 CT abd/p: Moderate bronchiectasis within the visualized lung bases. Status post cholecystectomy. Bilateral renal hypodensities. Cystic versus solid. Suggestion of nodularity of the left adrenal gland suggestion of adrenal adenomas. Graph severe arterial vascular disease involving the aorta and iliac arteries. Ventral abdominal wall hernias as described above. Bilateral inguinal hernias containing fat. Multilevel lumbar facet arthropathy COPD HTN DM2 Hepatitis B HLD former smoker s/p cholecystectomy obesity Plan: -Cont Levaquin#01/12 for COPD exacerbation -ok to discharge off abx -07/21 SP Ceftriaxone #4, Azithromycin #4 - 07/18/19 S/P Zosyn #1 -f/u cx -Monitor CBC/CMP, temperatures -aspiration precautions Thank you for consulting [facility]. Will continue to follow along with you. Subjective Allergies: Coded Allergies: No Known Allergies (Unverified , 06/17/12) Subjective afebrile at 2l NC wbc improving Objective Vital Signs Last 24 Hour Vital Signs Date Time Temp Pulse Resp B/P (MAP) Pulse Ox O2 Delivery O2 Flow Rate FiO2 08/04/19 11:24 97.7 87 18 120/66 (84) 95 08/04/19 09:16 110 100/65 08/04/19 09:00 Nasal Cannula 2.0 08/04/19 08:00 98.2 110 18 100/65 (77) 93 08/04/19 08:00 104 08/04/19 04:25 101 08/04/19 00:00 98 08/03/19 21:01 Nasal Cannula 2.0 08/03/19 20:01 103 08/03/19 20:00 98.1 102 17 129/77 (94) 92 08/03/19 19:40 92 Nasal Cannula 2.0 28 08/03/19 19:39 98 18 92 Nasal Cannula 2.0 28 08/03/19 18:15 98.2 81 20 110/61 (77) 98 08/03/19 18:12 91 Height (Feet): 5 Height (Inches): 2.00 Weight (Pounds): 190 Objective General: Awake and alert, uncomfortable appearing, tachypneic, hypoxic HEENT: NC/AT. EOMI. no stridor. Cardiovascular: RRR. S1 and S2 normal. No murmur appreciated Resp: Increased work of breathing, tachypnea. Bilateral inspiratory expiratory wheezes with coarse crackles at the bases. Saturating 77% on room air. Abdomen: Abdomen is soft, nondistended. Nontender Skin: Abdominal surgical scars are clean dry and intact. Otherwise no rash, breakdown appreciated on the exposed skin MSK: Normal tone and bulk. Moving all extremities. No obvious deformity. Neuro: Awake and alert. Mentating appropriately. Laboratory Tests Test 08/04/19 06:00 White Blood Count 17.3 K/UL (4.8-10.8) H Red Blood Count 4.00 M/UL (4.20-5.40) L Hemoglobin 10.2 G/DL (12.0-16.0) L Hematocrit 32.0 % (37.0-47.0) L Mean Corpuscular Volume 80 FL (80-99) Mean Corpuscular Hemoglobin 25.5 PG (27.0-31.0) L Mean Corpuscular Hemoglobin Concent 31.8 G/DL (32.0-36.0) L Red Cell Distribution Width 16.9 % (11.6-14.8) H Platelet Count 231 K/UL (150-450) Mean Platelet Volume 7.2 FL (6.5-10.1) Neutrophils (%) (Auto) 71.1 % (45.0-75.0) Lymphocytes (%) (Auto) 16.4 % (20.0-45.0) L Monocytes (%) (Auto) 7.0 % (1.0-10.0) Eosinophils (%) (Auto) 5.0 % (0.0-3.0) H Basophils (%) (Auto) 0.5 % (0.0-2.0) CBC Comment Pathologist review Erythrocyte Sedimentation Rate 53 MM/HR (0-30) H Sodium Level 137 MMOL/L (136-145) Potassium Level 3.9 MMOL/L (3.5-5.1) Chloride Level 103 MMOL/L (98-107) Carbon Dioxide Level 25 MMOL/L (21-32) Anion Gap 9 mmol/L (5-15) Blood Urea Nitrogen 20 mg/dL (7-18) H Creatinine 1.1 MG/DL (0.55-1.30) Estimat Glomerular Filtration Rate mL/min (>60) Glucose Level 157 MG/DL (74-106) H Calcium Level 8.1 MG/DL (8.5-10.1) L Phosphorus Level 3.1 MG/DL (2.5-4.9) Magnesium Level 1.7 MG/DL (1.8-2.4) L Total Bilirubin 0.3 MG/DL (0.2-1.0) Aspartate Amino Transf (AST/SGOT) 14 U/L (15-37) L Alanine Aminotransferase (ALT/SGPT) 27 U/L (12-78) Alkaline Phosphatase 81 U/L (46-116) C-Reactive Protein, Quantitative 4.7 mg/dL (0.00-0.90) H Total Protein 6.9 G/DL (6.4-8.2) Albumin 2.5 G/DL (3.4-5.0) L Globulin 4.4 g/dL Albumin/Globulin Ratio 0.6 (1.0-2.7) L Current Medications Medications (Trade) Dose Ordered Sig/Ana Maria Route PRN Reason Start Time Stop Time Status Last Admin Dose Admin Amlodipine Besylate (Norvasc) 2.5 mg DAILY ORAL 07/31/19 09:00 08/29/19 08:59 08/04/19 09:16 Dextrose (Dextrose 50%) 25 ml Q30M PRN IV Hypoglycemia 07/29/19 12:00 08/28/19 11:59 Dextrose (Dextrose 50%) 50 ml Q30M PRN IV Hypoglycemia 07/29/19 12:00 08/28/19 11:59 Docusate Sodium (Colace) 100 mg THREE TIMES A DAY ORAL 07/30/19 18:00 08/29/19 17:59 08/04/19 12:38 Gabapentin (Neurontin) 300 mg BEDTIME ORAL 07/29/19 21:00 08/28/19 20:59 08/01/19 21:31 Heparin Sodium (Porcine) (Heparin 5000 units/ml) 5,000 units EVERY 12 HOURS SUBQ 07/29/19 21:00 08/28/19 20:59 08/03/19 22:01 Insulin Aspart (NovoLOG) BEFORE MEALS AND HS SUBQ 07/29/19 16:30 08/28/19 16:29 08/04/19 12:39 Levofloxacin (Levaquin) 250 mg Q24H ORAL 07/30/19 12:00 08/06/19 11:59 08/04/19 12:43 Magnesium Oxide (Mag-Ox 400mg) 400 mg THREE TIMES A DAY ORAL 08/04/19 13:00 09/03/19 12:59 08/04/19 12:38 Morphine Sulfate (Morphine Sulfate) 2 mg Q4H PRN IVP For Pain 08/04/19 11:15 08/11/19 11:14 Nateglinide (Starlix) 60 mg TIAC ORAL 07/31/19 16:30 08/30/19 16:29 08/04/19 12:38 Nitroglycerin (Ntg) 0.4 mg Q5M X 3 DOSES PRN SL Prn Chest Pain 07/29/19 12:00 08/28/19 11:59 Ondansetron HCl (Zofran) 4 mg Q6H PRN IVP Nausea & Vomiting 07/29/19 12:00 08/28/19 11:59 Pantoprazole (Protonix) 40 mg EVERY 12 HOURS ORAL 07/30/19 21:00 08/29/19 20:59 08/04/19 09:16 Promethazine HCl/ Codeine (Phenergan with Codeine) 5 ml Q6H PRN ORAL cough 07/29/19 12:00 08/28/19 11:59 07/31/19 21:56 Temazepam (Restoril) 15 mg HSPRN PRN ORAL Insomnia 08/04/19 11:00 08/11/19 10:59 Theophylline (Sixto-Dur) 100 mg EVERY 12 HOURS ORAL 07/29/19 21:00 08/28/19 20:59 08/04/19 09:16 Aleksandra Vale M.D. Aug 04, 2019 13:35
--- NOTE | 2019-08-04 13:44 | Surgery Progress Note ---
Surgery Progress Note Subjective Symptoms: improved, pain absent, tolerating diet, voiding well, passing flatus , BM Objective Last 24 Hour Vital Signs Date Time Temp Pulse Resp B/P (MAP) Pulse Ox O2 Delivery O2 Flow Rate FiO2 08/04/19 11:24 97.7 87 18 120/66 (84) 95 08/04/19 09:16 110 100/65 08/04/19 09:00 Nasal Cannula 2.0 08/04/19 08:00 98.2 110 18 100/65 (77) 93 08/04/19 08:00 104 08/04/19 04:25 101 08/04/19 00:00 98 08/03/19 21:01 Nasal Cannula 2.0 08/03/19 20:01 103 08/03/19 20:00 98.1 102 17 129/77 (94) 92 08/03/19 19:40 92 Nasal Cannula 2.0 28 08/03/19 19:39 98 18 92 Nasal Cannula 2.0 28 08/03/19 18:15 98.2 81 20 110/61 (77) 98 08/03/19 18:12 91 I&O Intake and Output 08/03/19 08/04/19 19:00 07:00 Intake Total 300 ml Balance 300 ml Intake Oral 300 ml # Voids 3 3 Cardiovascular: RSR Respiratory: clear Abdomen: soft, flat, non-tender, present bowel sounds Extremities: no edema, no tenderness, no cyanosis Laboratory Tests Test 08/04/19 06:00 White Blood Count 17.3 K/UL (4.8-10.8) H Red Blood Count 4.00 M/UL (4.20-5.40) L Hemoglobin 10.2 G/DL (12.0-16.0) L Hematocrit 32.0 % (37.0-47.0) L Mean Corpuscular Volume 80 FL (80-99) Mean Corpuscular Hemoglobin 25.5 PG (27.0-31.0) L Mean Corpuscular Hemoglobin Concent 31.8 G/DL (32.0-36.0) L Red Cell Distribution Width 16.9 % (11.6-14.8) H Platelet Count 231 K/UL (150-450) Mean Platelet Volume 7.2 FL (6.5-10.1) Neutrophils (%) (Auto) 71.1 % (45.0-75.0) Lymphocytes (%) (Auto) 16.4 % (20.0-45.0) L Monocytes (%) (Auto) 7.0 % (1.0-10.0) Eosinophils (%) (Auto) 5.0 % (0.0-3.0) H Basophils (%) (Auto) 0.5 % (0.0-2.0) CBC Comment Pathologist review Erythrocyte Sedimentation Rate 53 MM/HR (0-30) H Sodium Level 137 MMOL/L (136-145) Potassium Level 3.9 MMOL/L (3.5-5.1) Chloride Level 103 MMOL/L (98-107) Carbon Dioxide Level 25 MMOL/L (21-32) Anion Gap 9 mmol/L (5-15) Blood Urea Nitrogen 20 mg/dL (7-18) H Creatinine 1.1 MG/DL (0.55-1.30) Estimat Glomerular Filtration Rate mL/min (>60) Glucose Level 157 MG/DL (74-106) H Calcium Level 8.1 MG/DL (8.5-10.1) L Phosphorus Level 3.1 MG/DL (2.5-4.9) Magnesium Level 1.7 MG/DL (1.8-2.4) L Total Bilirubin 0.3 MG/DL (0.2-1.0) Aspartate Amino Transf (AST/SGOT) 14 U/L (15-37) L Alanine Aminotransferase (ALT/SGPT) 27 U/L (12-78) Alkaline Phosphatase 81 U/L (46-116) C-Reactive Protein, Quantitative 4.7 mg/dL (0.00-0.90) H Total Protein 6.9 G/DL (6.4-8.2) Albumin 2.5 G/DL (3.4-5.0) L Globulin 4.4 g/dL Albumin/Globulin Ratio 0.6 (1.0-2.7) L Plan Problems: (1) Abdominal pain Assessment & Plan: likely related to ventral incisional hernia see below (2) Ventral incisional hernia Assessment & Plan: mild tender midline supra umbilical around area of prior midline surgical incision, firm non reducible mass noted obese given body habitus unable to completely appreciate exam. tender and states began after episode of coughing There is a fat-containing supra-umbilical hernia measuring about 5 cm transversely. A smaller umbilical hernia also noted measuring about 2 cm. There is a right inguinal hernia and a smaller left inguinal hernia containing fat. There is no free fluid. diet as tolerated discussed with patient. no interest in elective hernia repair at this time outpatient follow up leukocytosis likely related to steroids respiratory as per pulm improving tolerating diet, comfortable, no n/v/f/c pain resolved trend labs will follow with recommendations thank you Westley Menjivar Aug 04, 2019 13:44
--- NOTE | 2019-08-04 13:45 | NUR ---
Discharge: Patient is being discharged from medical care. Awake, alert and oriented x4. After care instructions, including referral to community resources were given. Patient verbalized understanding of After care instructions; at this time patient does not request medications, equipment or placement. Patient will be discharged to home with her daughter via private car. Patient signed patient consent in the medical record for patient destination upon discharge. All medical devices such as engine monitor, IV and ID band were removed. Patient ambulated out with all personal belongings with steady gait and RN assisted the patient to parking lot via wheelchair. Dr. Siddiqi paged for Rx to fax the patient's own pharmacy.
--- NOTE | 2019-08-04 14:04 | NUR ---
*-* DISCHARGE PLANNING *-* PATIENT HAS BEEN REFERRED TO: [email or web address] [phone] Work [phone] Work Work Fax Addendum: 08/04/19 at 1458 by ROJELIO WILKINSON CM SPOKE TO [facility] THEY HAVE ACCEPTED PATIENT AND WILL FOLLOW
--- NOTE | 2019-08-05 13:39 | Discharge Summary ---
Discharge Summary Discharge Summary _ DATE OF ADMISSION: 07/29/2019 DATE OF DISCHARGE: 08/04/2019 DISCHARGED BY: Dr Siddiqi REASON FOR ADMISSION: 74 years old female with past medical history of COPD, non-oxygen dependent, hypertension, hyperlipidemia, chronic liver disease, , obesity, presented for evaluation due to shortness of breath. Patient was hospitalized 2 weeks ago for pneumonia and COPD exacerbation. Patient felt well after discharge , However, later she developed signs of upper respiratory infection, including rhinorrhea , sore throat and productive cough. Sore throat and nasal congestion resolved, however cough was persistent. Patient noted worsening of shortness of breath over the past few days. Patient reported compliance with inhaler and completed antibiotic as was prescribed upon discharge. Patient did not take steroid Patient was not using oxygen. Patient was supposed to see her primary care provider at that day, but because became acutely short of breath , she presented to emergency room instead for further evaluation. Upon evaluation patient was hypoxic and tachypneic. Pulse oximetry was 74% on room air. ABG on 2 L of oxygen revealed pulse oximetry of 82%. Laboratory work-up revealed leukocytosis and anemia . BUN 28 , creatinine 1.1 . Glucose 312. Urinalysis revealed no evidence of urinary tract infection, +3 protein , +4 glucose. Chest x-ray demonstrated increased bilateral interstitial congestion since prior exam. Patient required supplemental oxygen . She received nebulizing treatment with bronchodilator, loading dose of steroid . BiPAP was on standby as needed. Patient admitted for further management to telemetry floor. CONSULTANTS: pulmonary Dr. Sarmiento ID specialist Dr. Vale iphone developer Dr. Crystal [facility] COURSE: Patient admitted to telemetry floor. Patient started on the IV steroids with fast tapering. Patient started on empiric antibiotics. Bronchodilator treatment provided [id number] and as needed. Trial of theophylline instituted. IV steroids tapered fast and changed to oral steroids. Influenza swab was negative. Sputum culture was negative. Urine culture revealed mixed gram-positive organism. CT scan of the abdomen and pelvis revealed moderate bronchiectasis within the lung bases. Patient completed 7 days of antibiotics . ID specialist recommended to discharge patient off antibiotic. Patient had leukocytosis , which initially increased , probably due to steroids and then started to trend down . No fevers. Supplemental oxygen provided and titrated to keep pulse oximetry above 92%. Prior to discharge pulse oximetry was stable on room air. DVT prophylaxis provided. Hemoglobin and hematocrit were closely monitored with goal to keep hemoglobin above 7. Hemoglobin and hematocrit remained at baseline, and prior to discharge hemoglobin 10.2 , hematocrit 32. Blood sugar was managed with sliding scale of insulin as needed. Hemoglobin A1c - 7.6. Diabetic diet and diabetic teaching provided. Renal parameters and electrolytes were closely monitored. Electrolytes corrected as needed. Hemodynamic status was closely monitored. Antihypertensive regimen titrated to keep blood pressure under control. Surgeon seen the patient for supraumbilical hernia. Patient tolerated diet. No nausea , vomiting , fever or chills. Surgeon recommended outpatient follow-up. Bowel regimen instituted. Supportive care provided . GI prophylaxis provided . Patient clinically stabilized and was ready for discharge home. FINAL DIAGNOSES: Acute hypoxemic respiratory failure , present on admission, due to COPD exacerbation - resolved COPD exacerbation Chronic liver disease Hypotension with history of hypertension Anemia Diabetes mellitus Diabetic nephropathy Obesity Electrolyte abnormalities Ventral incisional hernia DISCHARGE MEDICATIONS: See Medication Reconciliation list. DISCHARGE INSTRUCTIONS: Patient was discharged home with home health services. Follow up with primary care provider in one week. I have been assigned to dictate discharge summary for this account. \I was not involved in the patient's management. Asiya Parekr NP Aug 05, 2019 13:39
--- NOTE | 2019-08-06 16:59 | NUR ---
*-* INSURANCE *-* DISCHARGE SUMMARY HAS BEEN FAXED TO: [employer] WATCH[employer] ASSIGNED AT THIS TIME PLEASE FAX THE REVIEW/CLINICAL P- [phone] F- [phone]...REVIEW/CLINICAL
== END 2019-08-04 13:45 | disposition home health service (06) | DRG 189 ==
LOC: EMR 09:41 → 2E 10:32 → EDBEDREQ 10:47 → 2E 12:00
DX: J96.01 Acute respiratory failure with hypoxia (principal); J44.1 Chronic obstructive pulmonary disease with (acute) exacerbation; E46 Unspecified protein-calorie malnutrition; B19.10 Unspecified viral hepatitis B without hepatic coma; D72.829 Elevated white blood cell count, unspecified; T38.0X5A Adverse effect of glucocorticoids and synthetic analogues, initial encounter; K43.2 Incisional hernia without obstruction or gangrene; Z79.4 Long term (current) use of insulin; I11.0 Hypertensive heart disease with heart failure; M06.9 Rheumatoid arthritis, unspecified; E78.5 Hyperlipidemia, unspecified; I95.9 Hypotension, unspecified; K76.9 Liver disease, unspecified; E11.21 Type 2 diabetes mellitus with diabetic nephropathy; E66.9 Obesity, unspecified; E87.8 Other disorders of electrolyte and fluid balance, not elsewhere classified; Z87.891 Personal history of nicotine dependence; D64.9 Anemia, unspecified
CPT/HCPCS: 36415; 36600; 71045; 74176; 80048; 80053; 81001; 82803; 82962; 83036; 83735; 83880; 84100; 84443; 84484; 84550; 85007; 85025; 85651; 86140; 86710; 87070; 87081; 87086; 87205; 93005; 94640; 94664; 96374; 99285; J1815; J7620

== ENCOUNTER 2019-12-17 19:53 | Inpatient (IN) | payer MEDICARE, OTHER ==
[~2019-12-17] VITALS: Ht 157.5 cm; Wt 90.7 kg
[~2019-12-17 19:53] MED LIST changes: +BENADRYL25 MG ORAL; +COLACE100 MG ORAL; +MAGNESIUM400 M1 PO; +NORVASC2.5 MG ORAL; +PANTOPRAZOLE SO40 MG ORAL; +STARLIX60 MG ORAL; +TEMAZEPAM15 MG ORAL; +THEOPHYLLINE A200 MG PO
[2019-12-17 20:05] VITALS: BP 110/58
[2019-12-17 21:20] LABS: BASOPHILS % (AUTO) 1.3 % (0.0-2.0); EOSINOPHILS % (AUTO) 4.3 % (0.0-3.0); HEMATOCRIT 32.9 % (37.0-47.0); LYMPHOCYTES % (AUTO) 12.6 % (20.0-45.0); MEAN CORPUSCULAR VOLUME 71 FL (80-99); MONOCYTES % (AUTO) 6.9 % (1.0-10.0); PLATELET COUNT 448 K/UL (150-450); RED BLOOD COUNT 4.61 M/UL (4.20-5.40); RED CELL DISTRIBUTION WIDTH 20.2 % (11.6-14.8); WHITE BLOOD COUNT 10.4 K/UL (4.8-10.8)
[2019-12-17 21:32] LABS: ANION GAP 11 mmol/L (5-15); BLOOD UREA NITROGEN 12 mg/dL (7-18); CALCIUM 9.1 MG/DL (8.5-10.1); CARBON DIOXIDE 24 MMOL/L (21-32); CHLORIDE 102 MMOL/L (98-107); CREATININE 1.1 MG/DL (0.55-1.30); SODIUM 137 MMOL/L (136-145)
[2019-12-17 21:43] LABS: ALANINE AMINOTRANSFERASE 16 U/L (12-78); ALBUMIN 3.4 G/DL (3.4-5.0); ALBUMIN/GLOBULIN RATIO 0.6 (1.0-2.7); ALKALINE PHOSPHATASE 87 U/L (46-116); ASPARTATE AMINO TRANSFERASE 26 U/L (15-37); BILIRUBIN,TOTAL 0.3 MG/DL (0.2-1.0)
[2019-12-17 21:58] VITALS: BP 113/53
[2019-12-17] MEDS ORDERED: Morphine Sulfate 2mg/ml Inj(IV/IM USE ONLY) IVP PRN (22:45)
--- NOTE | 2019-12-17 23:25 | Emergency Room Report ---
History of Present Illness General Chief Complaint: Edema Source: Patient Present Illness HPI 74-year-old female presents with leg swelling, shortness of breath. History of CHF. History of COPD. On home oxygen. States that her Lasix is not helping. Notes increased leg swelling. Denies chest pain. Denies fevers or chills. Denies cough. No other aggravating relieving factors. Denies any other associated symptoms Allergies: Coded Allergies: No Known Allergies (Unverified , 06/17/12) COVID-19 Screening Contact w/high risk pt: No Recent Travel to affected area: No Experienced COVID-19 symptoms?: No COVID-19 Testing performed [employer] F[employer] WORKER: No Patient History Past Medical History: DM, HTN, COPD Pertinent Family History: none Social History: Denies: smoking, alcohol use, drug use Now: No Immunizations: UTD Reviewed Nursing Documentation: PMH: Agreed; PSxH: Agreed Nursing Documentation-PMH Hx Cardiac Problems: Yes Hx Hypertension: Yes Hx COPD: Yes Hx Diabetes: Yes Hx Cancer: No Hx Gastrointestinal Problems: No Hx Neurological Problems: No Review of Systems All Other Systems: negative except mentioned in HPI Physical Exam Vital Signs Date Time Temp Pulse Resp B/P (MAP) Pulse Ox O2 Delivery O2 Flow Rate FiO2 12/17/19 19:58 116 20 146/72 (96) 85 Nasal Cannula 2.0 12/17/19 20:05 98.2 Sp02 EP Interpretation: reviewed, normal General Appearance: no apparent distress, alert, GCS 15, non-toxic, obese Head: normocephalic, atraumatic Eyes: bilateral eye normal inspection, bilateral eye PERRL ENT: hearing grossly normal, normal pharynx, no angioedema, normal voice Neck: full range of motion, supple/symm/no masses Respiratory: chest non-tender, lungs clear, crackles, speaking full sentences Cardiovascular #1: regular rate, rhythm, no edema Cardiovascular #2: 2+ carotid (R), 2+ carotid (L), 2+ radial (R), 2+ radial (L) , 2+ dorsalis pedis (R), 2+ dorsalis pedis (L) Gastrointestinal: normal bowel sounds, non tender, soft, non-distended, no guarding, no rebound Rectal: deferred Genitourinary: normal inspection, no CVA tenderness Musculoskeletal: back normal, normal range of motion, gait/station normal, swelling - 1+ pitting edema Neurologic: alert, motor strength/tone normal, oriented x3, sensory intact, responsive, speech normal Psychiatric: judgement/insight normal, memory normal, mood/affect normal, no suicidal/homicidal ideation Reflexes: 3+ bicep (R), 3+ bicep (L), 3+ tricep (R), 3+ tricep (L), 3+ knee (R) , 3+ knee (L) Skin: no rash Lymphatic: no adenopathy Medical Decision Making Diagnostic Impression: Primary Impression: COPD exacerbation Additional Impression: CHF exacerbation Qualified Codes: I50.9 - Heart failure, unspecified ER Course Hospital Course 74-year-old female presents ED complaining of shortness of breath, leg swelling Differential diagnoses include: LA/unstable angina, contusion, muscle strain, PTX, rib fracture Clinical course Patient placed on stretcher. on security monitor. After initial history and physical I ordered labs, EKG, chest x-ray, labs reviewed- no leukocytosis, hemoglobin/hematocrit stable, creatinine elevated, troponins negative, BNP elevated EKG - NSR, no acute ischemic changes intepreted by me Chest x-ray- cardiomegaly Lasix given. Case discussed with Dr. Siddiqi and he agreed to accept the patient to his service for further care and support I. I feel this is a highly complex case requiring extensive working including EKG/Rhythm strip, Xray/CT/US, Blood/urine lab work, repeat exams while in ED, and administration of strong opiates/narcotics for pain control, admission to hospital or close patient follow up. Diagnosis - CHF exacerbation, COPD exacerbation admitted to telemetry in serious condition Labs Test 12/17/19 21:11 White Blood Count 10.4 K/UL (4.8-10.8) Red Blood Count 4.61 M/UL (4.20-5.40) Hemoglobin 9.0 G/DL (12.0-16.0) Hematocrit 32.9 % (37.0-47.0) Mean Corpuscular Volume 71 FL (80-99) Mean Corpuscular Hemoglobin 19.6 PG (27.0-31.0) Mean Corpuscular Hemoglobin Concent 27.4 G/DL (32.0-36.0) Red Cell Distribution Width 20.2 % (11.6-14.8) Platelet Count 448 K/UL (150-450) Mean Platelet Volume 6.5 FL (6.5-10.1) Neutrophils (%) (Auto) 75.0 % (45.0-75.0) Lymphocytes (%) (Auto) 12.6 % (20.0-45.0) Monocytes (%) (Auto) 6.9 % (1.0-10.0) Eosinophils (%) (Auto) 4.3 % (0.0-3.0) Basophils (%) (Auto) 1.3 % (0.0-2.0) Sodium Level 137 MMOL/L (136-145) Potassium Level 4.0 MMOL/L (3.5-5.1) Chloride Level 102 MMOL/L (98-107) Carbon Dioxide Level 24 MMOL/L (21-32) Anion Gap 11 mmol/L (5-15) Blood Urea Nitrogen 12 mg/dL (7-18) Creatinine 1.1 MG/DL (0.55-1.30) Estimat Glomerular Filtration Rate 58.8 mL/min (>60) Glucose Level 94 MG/DL (74-106) Calcium Level 9.1 MG/DL (8.5-10.1) Total Bilirubin 0.3 MG/DL (0.2-1.0) Aspartate Amino Transf (AST/SGOT) 26 U/L (15-37) Alanine Aminotransferase (ALT/SGPT) 16 U/L (12-78) Alkaline Phosphatase 87 U/L (46-116) Troponin I 0.022 ng/mL (0.000-0.056) Pro-B-Type Natriuretic Peptide 1652 pg/mL (0-125) Total Protein 9.1 G/DL (6.4-8.2) Albumin 3.4 G/DL (3.4-5.0) Globulin 5.7 g/dL Albumin/Globulin Ratio 0.6 (1.0-2.7) EKG Diagnostic Results Rate: normal Rhythm: NSR ST Segments: no acute changes ASA given to the pt in ED: No Rhythm Strip Diag. Results EP Interpretation: yes Rhythm: NSR, no PVC's, no ectopy Chest X-Ray Diagnostic Results Chest X-Ray Diagnostic Results : Chest X-Ray Ordered: Yes # of Views/Limited/Complete: 1 View Indication: Shortness of Breath EP Interpretation: Yes Interpretation: no consolidation, no pneumothorax, no acute cardiopulmonary disease, other - cardiomegaly. interstitial congestion Impression: Other - CHF Electronically Signed by: Electronically signed by Jb Crowe MD Last Vital Signs Date Time Temp Pulse Resp B/P (MAP) Pulse Ox O2 Delivery O2 Flow Rate FiO2 12/17/19 21:58 99 26 113/53 95 Nasal Cannula 2.0 12/17/19 20:05 98.2 Status: improved Disposition: ADMITTED INPATIENT Condition: Serious Referrals: Jai Siddiqi DO (PCP) Jb Crowe MD Dec 17, 2019 23:25
[2019-12-18] VITALS (8 sets, daily range): BP systolic 97–149; BP diastolic 41–69
[2019-12-18] MEDS: Heparin 5000 units/ml inj SUBQ SCH ×2 (09:41→21:39)
[2019-12-18] MEDS: Albuterol/Ipratropium 3ml neb HHN SCH ×2 (11:15→15:00)
--- NOTE | 2019-12-18 12:03 | Consultation ---
History of Present Illness General Date patient seen: Dec 18, 2019 Chief Complaint: Edema Present Illness HPI 74-year-old female with history of COPD, hypertension, obesity presented to ER for evaluation of shortness of breath, selling of legs. She has noticed worsening shortness of breath over the past 2 days. Denies fever, chills, chest pain, palpitations, vomiting, diarrhea, myalgias. She is admitted for further management. Allergies: Coded Allergies: No Known Allergies (Unverified , 06/17/12) Medication History Scheduled Amlodipine Besylate (Norvasc), 2.5 MG ORAL DAILY, (Reported) Atorvastatin Calcium* (Atorvastatin Calcium*), 40 MG ORAL BEDTIME, (Reported) Docusate Sodium* (Colace*), 100 MG ORAL THREE TIMES A DAY, (Reported) Gabapentin* (Gabapentin*), 300 MG ORAL BEDTIME, (Reported) Glimepiride (Glimepiride), 2 MG ORAL BEFORE BREAKFAST, (Reported) Losartan/Hydrochlorothiazide (Losartan-Hctz 100-12.5 Mg Tab), 1 TAB ORAL DAILY Losartan/Hydrochlorothiazide 100-25 Tablet (Hyzaar 100-25 Tablet), 1 TAB ORAL DAILY, (Reported) Magnesium Oxide (Magnesium), 400 MG PO TID, (Reported) Metformin Hcl* (Metformin Hcl*), 850 MG ORAL BID, (Reported) Nateglinide* (Starlix*), 60 MG ORAL THREE TIMES A DAY, (Reported) Pantoprazole* (Pantoprazole*), 40 MG ORAL EVERY 12 HOURS, (Reported) Theophylline Anhydrous (Theophylline Anhydrous), 100 MG PO Q12HR, (Reported) Scheduled PRN Albuterol Sulfate* (Albuterol Sulfate Hhn*), 3 ML INH Q4H PRN for Shortness of Breath, (Reported) Codeine/Promethazine Hcl* (Promethazine-Codeine Syrup*), 5 ML ORAL Q6H PRN for For Cough, (Reported) Diphenhydramine Hcl* (Benadryl*), 25 MG ORAL Q6H PRN for Itching, (Reported) Hydrocodone Bit/Acetaminophen 10-325* ([place] 10-325*), 1 TAB ORAL Q6H PRN for For Pain, (Reported) Ibuprofen (Motrin), 600 MG ORAL Q6H PRN for For Pain, (Reported) Temazepam (Temazepam*), 15 MG ORAL BEDTIME PRN for insomnia, (Reported) Patient History Healthcare decision maker Resuscitation status Advanced Directive on File Past Medical/Surgical History Past Medical/Surgical History: (1) Obesity (BMI 30.0-34.9) (2) Diabetic nephropathy (3) Ventral incisional hernia (4) COPD (chronic obstructive pulmonary disease) (5) Chronic liver disease (6) Diabetes mellitus Review of Systems Constitutional: Reports: malaise Eye: Reports: no symptoms ENT: Reports: no symptoms Respiratory: Reports: shortness of breath Cardiovascular: Reports: no symptoms Gastrointestinal: Reports: no symptoms Genitourinary: Reports: no symptoms Musculoskeletal: Reports: see HPI Physical Exam General Appearance: obese Lines, tubes and drains: peripheral HEENT: normocephalic, atraumatic Neck: non-tender, normal alignment Respiratory/Chest: chest wall non-tender, lungs clear, normal breath sounds Cardiovascular/Chest: normal peripheral pulses, normal rate, regular rhythm Abdomen: normal bowel sounds, non tender Extremities: normal range of motion, non-tender Skin Exam: normal pigmentation Last 24 Hour Vital Signs Date Time Temp Pulse Resp B/P (MAP) Pulse Ox O2 Delivery O2 Flow Rate FiO2 12/18/19 09:40 81 149/62 12/18/19 08:00 96.8 81 18 149/62 (91) 94 12/18/19 08:00 93 12/18/19 08:00 98.6 79 19 128/76 94 Nasal Cannula 2.0 12/18/19 08:00 Nasal Cannula 2.0 12/18/19 07:30 98.2 92 16 127/56 95 Nasal Cannula 2.0 12/18/19 05:50 96 17 125/41 97 Nasal Cannula 2.0 12/18/19 03:25 100 19 97/58 94 Nasal Cannula 2.0 12/18/19 00:30 98 18 107/69 97 Nasal Cannula 2.0 12/17/19 21:58 99 26 113/53 95 Nasal Cannula 2.0 12/17/19 20:05 95 18 Nasal Cannula 2.0 12/17/19 20:05 98.2 103 24 110/58 88 Nasal Cannula 2.0 12/17/19 19:58 116 20 146/72 (96) 85 Nasal Cannula 2.0 Intake and Output 12/17/19 12/18/19 19:00 07:00 Intake Total 0 ml Output Total 800 ml Balance -800 ml Intake Oral 0 ml Output Urine Total 800 ml Laboratory Tests Test 12/17/19 21:11 White Blood Count 10.4 K/UL (4.8-10.8) Red Blood Count 4.61 M/UL (4.20-5.40) Hemoglobin 9.0 G/DL (12.0-16.0) L Hematocrit 32.9 % (37.0-47.0) L Mean Corpuscular Volume 71 FL (80-99) L Mean Corpuscular Hemoglobin 19.6 PG (27.0-31.0) L Mean Corpuscular Hemoglobin Concent 27.4 G/DL (32.0-36.0) L Red Cell Distribution Width 20.2 % (11.6-14.8) H Platelet Count 448 K/UL (150-450) Mean Platelet Volume 6.5 FL (6.5-10.1) Neutrophils (%) (Auto) 75.0 % (45.0-75.0) Lymphocytes (%) (Auto) 12.6 % (20.0-45.0) L Monocytes (%) (Auto) 6.9 % (1.0-10.0) Eosinophils (%) (Auto) 4.3 % (0.0-3.0) H Basophils (%) (Auto) 1.3 % (0.0-2.0) Sodium Level 137 MMOL/L (136-145) Potassium Level 4.0 MMOL/L (3.5-5.1) Chloride Level 102 MMOL/L (98-107) Carbon Dioxide Level 24 MMOL/L (21-32) Anion Gap 11 mmol/L (5-15) Blood Urea Nitrogen 12 mg/dL (7-18) Creatinine 1.1 MG/DL (0.55-1.30) Estimat Glomerular Filtration Rate 58.8 mL/min (>60) Glucose Level 94 MG/DL (74-106) Calcium Level 9.1 MG/DL (8.5-10.1) Total Bilirubin 0.3 MG/DL (0.2-1.0) Aspartate Amino Transf (AST/SGOT) 26 U/L (15-37) Alanine Aminotransferase (ALT/SGPT) 16 U/L (12-78) Alkaline Phosphatase 87 U/L (46-116) Troponin I 0.022 ng/mL (0.000-0.056) Pro-B-Type Natriuretic Peptide 1652 pg/mL (0-125) H Total Protein 9.1 G/DL (6.4-8.2) H Albumin 3.4 G/DL (3.4-5.0) Globulin 5.7 g/dL Albumin/Globulin Ratio 0.6 (1.0-2.7) L Height (Feet): 5 Height (Inches): 2.00 Weight (Pounds): 190 Medications Current Medications Medications (Trade) Dose Ordered Sig/Ana Maria Route PRN Reason Start Time Stop Time Status Last Admin Dose Admin Acetaminophen (Tylenol) 650 mg Q6HR PRN ORAL Mild Pain (Pain Scale 1-3) 12/17/19 22:45 12/18/19 22:44 Albuterol/ Ipratropium (Albuterol/ Ipratropium) 3 ml Q8HRT HHN 12/18/19 07:00 12/23/19 06:59 Amlodipine Besylate (Norvasc) 2.5 mg DAILY ORAL 12/18/19 09:00 01/17/20 08:59 12/18/19 09:40 Dextrose (Dextrose 50%) 25 ml Q30M PRN IV Hypoglycemia 12/17/19 23:45 03/16/20 23:44 Dextrose (Dextrose 50%) 50 ml Q30M PRN IV Hypoglycemia 12/17/19 23:45 03/16/20 23:44 Furosemide (Lasix) 40 mg EVERY 12 HOURS IV 12/18/19 09:00 01/17/20 08:59 12/18/19 09:40 Gabapentin (Neurontin) 300 mg BEDTIME ORAL 12/18/19 21:00 01/17/20 20:59 Heparin Sodium (Porcine) (Heparin 5000 units/ml) 5,000 units EVERY 12 HOURS SUBQ 12/18/19 09:00 02/01/20 08:59 12/18/19 09:41 Morphine Sulfate (Morphine Sulfate) 2 mg Q4HR PRN IVP Moderate Pain (Pain Scale 4-6) 12/17/19 22:45 12/18/19 22:44 Ondansetron HCl (Zofran) 4 mg Q4HR PRN IVP Nausea & Vomiting 12/17/19 22:45 12/18/19 22:44 Assessment/Plan Problem List: (1) CHF exacerbation ICD Codes: I50.9 - Heart failure, unspecified SNOMED: 755155069, [id number] Qualifiers: Qualified Codes: I50.9 - Heart failure, unspecified (2) Peripheral edema ICD Codes: R60.9 - Edema, unspecified SNOMED: 814186566 (3) COPD (chronic obstructive pulmonary disease) ICD Codes: J44.9 - Chronic obstructive pulmonary disease, unspecified SNOMED: 10773666 (4) Diabetic nephropathy ICD Codes: E11.21 - Type 2 diabetes mellitus with diabetic nephropathy SNOMED: 904598309 (5) Obesity (BMI 30.0-34.9) ICD Codes: E66.9 - Obesity, unspecified SNOMED: 535307206460814 (6) Diabetes mellitus ICD Codes: E11.9 - Type 2 diabetes mellitus without complications SNOMED: 36164839 (7) Chronic liver disease ICD Codes: K76.9 - Liver disease, unspecified SNOMED: 093974933 Assessment/Plan: symptomatic treatment lasix IV respiratory treatment titrate fio2 to sat of 92% optimize cardiac meds dvt prophylaxis strict intake and output. Monika Sarmiento MD Dec 18, 2019 12:03
--- NOTE | 2019-12-18 16:47 | Diagnostic Imaging Report ---
Indication: Shortness of breath Technique: One view of the chest Comparison: 07/29/2019 Findings: Mild prominence in the interstitial markings at the lung bases is similar to the previous exam. Is also some bronchial wall thickening. The heart is upper limits normal in size. The aorta is calcified. Impression: Basilar interstitial prominence, similar to the previous study, may reflect combination of acute interstitial congestion and chronic interstitial disease. Correlate with clinical findings
[2019-12-18] MEDS ORDERED: ASPIR 8181 MG ORAL (17:44)
[2019-12-18] MEDS ORDERED: DiphenhydrAMINE 50mg/ml Inj IVP PRN (20:15)
--- NOTE | 2019-12-18 20:30 | History and Physical Report ---
DATE OF ADMISSION: 12/17/2019 DATE AND TIME SEEN: 12/18/2019 approximate time is 3 p.m. CONSULTANTS: 1. Monika Sarmiento MD. 2. Panfilo Mahan MD. CHIEF COMPLAINT: Shortness of breath, CHF exacerbation, edema. BRIEF HISTORY: This is a 74-year-old female who lives at home presents with 1 month increased shortness of breath, bilateral edema increasing for about a month as well. Patient came to [place], diagnosed with the above, admitted to telemetry floor. Currently slight short of breath, O2 NC. No complaints. REVIEW OF SYSTEMS: No chest pain. Slight short of breath. No nausea, vomiting, or diarrhea. PAST MEDICAL HISTORY: COPD, diabetes, CHF, hypertension. PAST SURGICAL HISTORY: Gallbladder. ALLERGIES: Denies. MEDICATIONS: Include gabapentin, amlodipine, furosemide, albuterol, morphine, Zofran, Tylenol. SOCIAL HISTORY: No smoking. No alcohol. No intravenous drug abuse. FAMILY HISTORY: Noncontributory. PHYSICAL EXAMINATION: GENERAL: Calm in bed, oriented x3, slight short of breath. VITAL SIGNS: Temperature 97 degrees, pulse 77, respirations 19, blood pressure 127/43. CARDIOVASCULAR: No murmur. LUNGS: Poor exchange. ABDOMEN: Bowel sounds distant. EXTREMITIES: Showed no cyanosis or clubbing. 1+ edema bilateral lower extremity. NEUROLOGIC: Patient moves all extremities, slightly weak. LABORATORY DATA: Labs at this time show hemoglobin and hematocrit 9/32, otherwise CBC is normal. BNP is 1652. Troponin 0.022, otherwise BMP is normal. ASSESSMENT: 1. Shortness of breath. 2. CHF exacerbation. 3. Edema. 4. COPD. 5. Diabetes. 6. Hypertension. PLAN: 1. O2, pulmonary treatment. 2. Diurese. 3. Blood pressure, pain control. 4. Blood sugar control. 5. Dietary followup. 6. PT and dietary evaluation. Jai Siddiqi D.O. DR: KOLE JOB#: [id number] CC:
--- NOTE | 2019-12-18 20:38 | Cardiology Progress Note ---
Assessment/Plan Assessment/Plan [id number] iv lasix switch nrovasc to acei watch bp check iron and tibc stool ob will need med for traetme fo copd as out pt ? Interstitial lugn disease? Objective Last 24 Hour Vital Signs Date Time Temp Pulse Resp B/P (MAP) Pulse Ox O2 Delivery O2 Flow Rate FiO2 12/18/19 16:00 97.7 88 19 121/67 (85) 96 12/18/19 12:00 96.8 77 19 127/43 (71) 98 12/18/19 09:40 81 149/62 12/18/19 08:00 96.8 81 18 149/62 (91) 94 12/18/19 08:00 93 12/18/19 08:00 98.6 79 19 128/76 94 Nasal Cannula 2.0 12/18/19 08:00 Nasal Cannula 2.0 12/18/19 07:30 98.2 92 16 127/56 95 Nasal Cannula 2.0 12/18/19 05:50 96 17 125/41 97 Nasal Cannula 2.0 12/18/19 03:25 100 19 97/58 94 Nasal Cannula 2.0 12/18/19 00:30 98 18 107/69 97 Nasal Cannula 2.0 12/17/19 21:58 99 26 113/53 95 Nasal Cannula 2.0 Intake and Output 12/17/19 12/18/19 19:00 07:00 Intake Total 0 ml Output Total 800 ml Balance -800 ml Intake Oral 0 ml Output Urine Total 800 ml Laboratory Tests Test 12/17/19 21:11 White Blood Count 10.4 K/UL (4.8-10.8) Red Blood Count 4.61 M/UL (4.20-5.40) Hemoglobin 9.0 G/DL (12.0-16.0) L Hematocrit 32.9 % (37.0-47.0) L Mean Corpuscular Volume 71 FL (80-99) L Mean Corpuscular Hemoglobin 19.6 PG (27.0-31.0) L Mean Corpuscular Hemoglobin Concent 27.4 G/DL (32.0-36.0) L Red Cell Distribution Width 20.2 % (11.6-14.8) H Platelet Count 448 K/UL (150-450) Mean Platelet Volume 6.5 FL (6.5-10.1) Neutrophils (%) (Auto) 75.0 % (45.0-75.0) Lymphocytes (%) (Auto) 12.6 % (20.0-45.0) L Monocytes (%) (Auto) 6.9 % (1.0-10.0) Eosinophils (%) (Auto) 4.3 % (0.0-3.0) H Basophils (%) (Auto) 1.3 % (0.0-2.0) Sodium Level 137 MMOL/L (136-145) Potassium Level 4.0 MMOL/L (3.5-5.1) Chloride Level 102 MMOL/L (98-107) Carbon Dioxide Level 24 MMOL/L (21-32) Anion Gap 11 mmol/L (5-15) Blood Urea Nitrogen 12 mg/dL (7-18) Creatinine 1.1 MG/DL (0.55-1.30) Estimat Glomerular Filtration Rate 58.8 mL/min (>60) Glucose Level 94 MG/DL (74-106) Calcium Level 9.1 MG/DL (8.5-10.1) Total Bilirubin 0.3 MG/DL (0.2-1.0) Aspartate Amino Transf (AST/SGOT) 26 U/L (15-37) Alanine Aminotransferase (ALT/SGPT) 16 U/L (12-78) Alkaline Phosphatase 87 U/L (46-116) Troponin I 0.022 ng/mL (0.000-0.056) Pro-B-Type Natriuretic Peptide 1652 pg/mL (0-125) H Total Protein 9.1 G/DL (6.4-8.2) H Albumin 3.4 G/DL (3.4-5.0) Globulin 5.7 g/dL Albumin/Globulin Ratio 0.6 (1.0-2.7) Panfilo Singh MD Dec 18, 2019 20:38
[2019-12-18] MEDS: NovoLOG Insulin Flexpen SUBQ SCH (21:00)
[2019-12-19] VITALS: BP 141/69
[2019-12-19] MEDS ORDERED: Albuterol/Ipratropium 3ml neb ONE (00:26)
--- NOTE | 2019-12-19 01:00 | Consultation ---
DATE OF CONSULTATION: 12/18/2019 CARDIOLOGY CONSULTATION REFERRING PHYSICIAN: Jai Siddiqi DO. REASON FOR REFERRAL: Leg edema. HISTORY OF PRESENT ILLNESS: This is an elderly female, who is known to me from recent evaluation here. The patient was in my office within the past 2 weeks. She presented to the hospital because of increasing leg edema which she has had. I had started her on some diuretic as outpatient, but very minimally dosed. She has noticed that she has developed some increased swelling of the leg and her left breast as well, so she finally presented to the hospital. She has orthopnea. She now has adjustable bed that she can use. If she does not use the head of bed elevated, she gets short of breath and she had dyspnea on exertion that has been chronic and present for some time now and she has no chest pain or pressure with activity and she has occasional palpitation when she is wheezing. She has daily dyspnea on exertion that has been chronic. Her activity is limited because of the shortness of breath, but not because of discomfort. She has not been waking up because of shortness of breath. She uses oxygen all the time and uses 3 to 4 pillows and she has the head of the bed elevated as well for orthopnea. She denies any lightheadedness or dizziness. 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 SURGERIES: She has no prior surgeries. FAMILY HISTORY: No premature coronary artery disease. SOCIAL HISTORY: Denies any smoking, alcohol, or drug use at the present time. REVIEW OF SYSTEMS: GASTROINTESTINAL: She was nauseated yesterday. No vomiting. No diarrhea. She has had occasional constipation, but she takes medication and she developed diarrhea. GENITOURINARY: Negative. PULMONARY: She has chronic coughing, chronic wheezing, not new cough or wheezing. CONSTITUTIONAL: No fever, chills, or night sweats. NEUROLOGICAL: Negative. PHYSICAL EXAMINATION: GENERAL: Shows to be morbidly obese female in no respiratory distress. NECK: Supple. No jugular venous distention. She has crackles noted bilaterally with decreased breath sounds noted bilaterally. CARDIAC: Regular rate and rhythm. Systolic ejection murmur. ABDOMEN: Soft, obese. Positive bowel sounds. EXTREMITIES: Reveal 2 to 3+ edema of the lower extremities on the left side, it goes just above the knee and on the right side just below the knee. NEUROLOGICAL: She is awake, alert, responsive. LABORATORY AND DIAGNOSTIC DATA: Her white count is 10.4, hemoglobin of 9, and platelet count of 448 with an MCV of 71. Sodium 137, potassium 4.0, chloride 102, bicarb 24, BUN of , creatinine 1.1 and glucose of 94. Her troponin is 0.022. Her proBNP is 1652. Albumin of 3.4. Chest x-ray was performed in the emergency room showing evidence of bibasilar interstitial prominence similar to previous study, may be a combination of interstitial congestion and chronic interstitial disease. Electrocardiogram shows basically sinus rhythm, normal QRS axis, no ST or T-wave abnormalities and this was from yesterday. It was not repeated today. Comparison with the EKG that was performed from my office recently does not appear to be significantly changed. She has had an echocardiogram that was performed in my office just recently and her echocardiogram showed her LV function to be normal. She had a moderate degree of left ventricular hypertrophy, ejection fraction 65% to 70%. Mildly enlarged right atrium and aortic valve appeared to be calcified with decreased opening suggestive of aortic stenosis, however, the gradient was not measured to be high, which I thought was underestimation of the aortic gradient severity. Images were poor quality unfortunately of the aortic valve gradient with Doppler. ASSESSMENT AND PLAN: 1. Chronic obstructive pulmonary disease. 2. Pulmonary hypertension. 3. Aortic stenosis. 4. Essential hypertension. 5. Diabetes mellitus. 6. Obesity. 7. Chronic liver disease. This patient was seen in cardiac consultation. The patient has multiple reasons to have shortness of breath including COPD, diastolic heart failure and aortic stenosis. She was not getting enough diuretics at home. I did start her on some low-dose of diuretics for followup. She really needs probably some breathing treatments as outpatient to help with her breathing. Her diuretics will be increased while she is here in the hospital and should be monitored carefully to help with diureses. Her other medications should be continued and her left breast on examination appears minimally larger than the right. I suspect may be fluid in the tissues probably the same reason as fluid accumulating in her legs, position related as she sleeps on her left side, but we will leave evaluation of that to Dr. Siddiqi. She does have the edema that may be also contributed by being on amlodipine. We will consider starting her on some JEANNIE inhibitors instead of amlodipine to see if we can help with fluid as well. Panfilo Mahan M.D. DR: MARLA JOB#: [id number] CC:
[2019-12-19] MEDS: Albuterol/Ipratropium 3ml neb HHN SCH ×4 (01:51→23:01)
[2019-12-19 04:00] VITALS: BP 102/50
[2019-12-19] MEDS: NovoLOG Insulin Flexpen SUBQ SCH ×4 (06:22→20:57)
[2019-12-19 07:20] LABS: BASOPHILS % (AUTO) 1.2 % (0.0-2.0); EOSINOPHILS % (AUTO) 5.6 % (0.0-3.0); HEMATOCRIT 31.2 % (37.0-47.0); HEMOGLOBIN 8.6 G/DL (12.0-16.0); LYMPHOCYTES % (AUTO) 17.9 % (20.0-45.0); MEAN CORPUSCULAR VOLUME 73 FL (80-99); NEUTROPHILS % (AUTO) 66.2 % (45.0-75.0); PLATELET COUNT 385 K/UL (150-450); RED BLOOD COUNT 4.29 M/UL (4.20-5.40); RED CELL DISTRIBUTION WIDTH 17.6 % (11.6-14.8); WHITE BLOOD COUNT 9.9 K/UL (4.8-10.8)
[2019-12-19 07:41] LABS: ALANINE AMINOTRANSFERASE 16 U/L (12-78); ALBUMIN/GLOBULIN RATIO 0.6 (1.0-2.7); ALKALINE PHOSPHATASE 77 U/L (46-116); ANION GAP 11 mmol/L (5-15); ASPARTATE AMINO TRANSFERASE 25 U/L (15-37); BILIRUBIN,TOTAL 0.3 MG/DL (0.2-1.0); BLOOD UREA NITROGEN 13 mg/dL (7-18); CALCIUM 8.2 MG/DL (8.5-10.1); CARBON DIOXIDE 25 MMOL/L (21-32); CHLORIDE 101 MMOL/L (98-107); POTASSIUM 3.3 MMOL/L (3.5-5.1); SODIUM 137 MMOL/L (136-145)
[2019-12-19 07:47] LABS: IRON 17 ug/dL (50-175)
[2019-12-19] MEDS: Morphine Sulfate 2mg/ml Inj(IV/IM USE ONLY) IVP PRN ×2 (07:57→21:16)
[2019-12-19 08:00] VITALS: BP 122/45
[2019-12-19] MEDS: Heparin 5000 units/ml inj SUBQ SCH ×2 (08:12→20:57)
[2019-12-19] MEDS: Lisinopril 10mg tab ORAL SCH (08:16)
--- NOTE | 2019-12-19 09:46 | General Progress Note ---
Assessment/Plan Problem List: (1) Peripheral edema ICD Codes: R60.9 - Edema, unspecified SNOMED: 809803495 (2) Anemia ICD Codes: D64.9 - Anemia, unspecified SNOMED: 930020202 (3) Diabetes mellitus ICD Codes: E11.9 - Type 2 diabetes mellitus without complications SNOMED: 22572117 (4) COPD (chronic obstructive pulmonary disease) ICD Codes: J44.9 - Chronic obstructive pulmonary disease, unspecified SNOMED: 14490902 (5) Obesity (BMI 30.0-34.9) ICD Codes: E66.9 - Obesity, unspecified SNOMED: 793373728664205 (6) CHF exacerbation ICD Codes: I50.9 - Heart failure, unspecified SNOMED: 363069594, [id number] Qualifiers: Qualified Codes: I50.9 - Heart failure, unspecified Status: unchanged Assessment/Plan: o2 pulm ts diuese pt diet cbc bmp am Subjective Constitutional: Reports: weakness Allergies: Coded Allergies: No Known Allergies (Unverified , 06/17/12) All Systems: reviewed and negative except above Subjective o2nc sl sob Objective Last 24 Hour Vital Signs Date Time Temp Pulse Resp B/P (MAP) Pulse Ox O2 Delivery O2 Flow Rate FiO2 12/19/19 08:16 122/45 12/19/19 07:40 80 19 95 Nasal Cannula 2.0 28 86 18 96 12/19/19 04:00 97.3 95 20 102/50 (67) 90 12/19/19 04:00 88 12/19/19 00:30 79 19 100 Nasal Cannula 2.0 28 81 18 98 12/19/19 00:30 79 18 98 Nasal Cannula 2.0 28 12/19/19 00:00 92 12/19/19 00:00 97.5 96 20 141/69 (93) 91 12/18/19 21:00 Nasal Cannula 2.0 12/18/19 20:00 97 12/18/19 20:00 97.9 80 20 112/53 (72) 91 12/18/19 16:00 97.7 88 19 121/67 (85) 96 12/18/19 12:00 96.8 77 19 127/43 (71) 98 Intake and Output 12/18/19 12/19/19 19:00 07:00 Intake Total 1400 ml Balance 1400 ml Intake Oral 1400 ml # Voids 2 Laboratory Tests 12/19/19 06:13: White Blood Count 9.9, Red Blood Count 4.29, Hemoglobin 8.6L, Hematocrit 31.2L, Mean Corpuscular Volume 73L, Mean Corpuscular Hemoglobin 20.1L, Mean Corpuscular Hemoglobin Concent 27.6L, Red Cell Distribution Width 17.6H, Platelet Count 385, Mean Platelet Volume 6.6, Neutrophils (%) (Auto) 66.2, Lymphocytes (%) (Auto) 17.9L, Monocytes (%) (Auto) 9.0, Eosinophils (%) (Auto) 5.6H, Basophils (%) (Auto) 1.2, Sodium Level 137, Potassium Level 3.3L, Chloride Level 101, Carbon Dioxide Level 25, Anion Gap 11, Blood Urea Nitrogen 13, Creatinine 1.0, Estimat Glomerular Filtration Rate > 60, Glucose Level 100, Calcium Level 8.2L, Magnesium Level 1.8, Iron Level 17L, Total Bilirubin 0.3, Aspartate Amino Transf (AST/SGOT) 25, Alanine Aminotransferase (ALT/SGPT) 16, Alkaline Phosphatase 77, Pro-B-Type Natriuretic Peptide 1256H, Total Protein 8.2 , Albumin 3.0L, Globulin 5.2, Albumin/Globulin Ratio 0.6L Height (Feet): 5 Height (Inches): 2.00 Weight (Pounds): 192 General Appearance: lethargic EENT: normal ENT inspection Neck: normal alignment Cardiovascular: normal peripheral pulses, normal rate, regular rhythm Respiratory/Chest: chest wall non-tender, lungs clear, normal breath sounds Abdomen: normal bowel sounds, non tender, soft Extremities: normal inspection Edema: 1+ Arm (L), 1+ Arm (R), 1+ Leg (L), 1+ Leg (R), 1+ Pedal (L), 1+ Pedal ( R), 1+ Generalized Neurologic: responsive, motor weakness Skin: normal pigmentation, warm/dry Jai Siddiqi DO Dec 19, 2019 09:46
[2019-12-19 12:00] VITALS: BP 114/43
--- NOTE | 2019-12-19 12:43 | Diagnostic Imaging Report ---
Indication: Bilateral lower leg edema. Leg pain and tightness Technique: Grayscale and duplex images of the bilateral lower extremity veins Comparison: None Findings: Bilaterally, grayscale and duplex images demonstrate no evidence of intraluminal thrombus. Normal phasic Doppler waveforms, demonstrating normal augmentation response and no evidence of valvular insufficiency. Greater saphenous vein(s) and tibial veins are patent. Normal compressibility. The subcutaneous fat is edematous bilaterally Impression: Negative for evidence of lower extremity deep venous thrombosis bilaterally
--- NOTE | 2019-12-19 12:47 | Pulmonology Progress Note ---
Subjective ROS Limited/Unobtainable: No Interval Events: diuresing well Allergies: Coded Allergies: No Known Allergies (Unverified , 06/17/12) All Systems: reviewed and negative except above Objective Last 24 Hour Vital Signs Date Time Temp Pulse Resp B/P (MAP) Pulse Ox O2 Delivery O2 Flow Rate FiO2 12/19/19 09:00 Nasal Cannula 2.0 12/19/19 08:16 122/45 12/19/19 08:00 95 12/19/19 08:00 97.8 99 22 122/45 (70) 91 12/19/19 07:40 80 19 95 Nasal Cannula 2.0 28 86 18 96 12/19/19 04:00 97.3 95 20 102/50 (67) 90 12/19/19 04:00 88 12/19/19 00:30 79 19 100 Nasal Cannula 2.0 28 81 18 98 12/19/19 00:30 79 18 98 Nasal Cannula 2.0 28 12/19/19 00:00 92 12/19/19 00:00 97.5 96 20 141/69 (93) 91 12/18/19 21:00 Nasal Cannula 2.0 12/18/19 20:00 97 12/18/19 20:00 97.9 80 20 112/53 (72) 91 12/18/19 16:00 97.7 88 19 121/67 (85) 96 Intake and Output 12/18/19 12/19/19 19:00 07:00 Intake Total 1400 ml Balance 1400 ml Intake Oral 1400 ml # Voids 2 General Appearance: WD/WN HEENT: normocephalic, atraumatic Respiratory: chest wall non-tender, lungs clear Cardiovascular: normal peripheral pulses, normal rate Abdomen: normal bowel sounds, no organomegaly Genitourinary: normal external genitalia Skin: no rash 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 Laboratory Tests 12/19/19 06:13: White Blood Count 9.9, Red Blood Count 4.29, Hemoglobin 8.6L, Hematocrit 31.2L, Mean Corpuscular Volume 73L, Mean Corpuscular Hemoglobin 20.1L, Mean Corpuscular Hemoglobin Concent 27.6L, Red Cell Distribution Width 17.6H, Platelet Count 385, Mean Platelet Volume 6.6, Neutrophils (%) (Auto) 66.2, Lymphocytes (%) (Auto) 17.9L, Monocytes (%) (Auto) 9.0, Eosinophils (%) (Auto) 5.6H, Basophils (%) (Auto) 1.2, Sodium Level 137, Potassium Level 3.3L, Chloride Level 101, Carbon Dioxide Level 25, Anion Gap 11, Blood Urea Nitrogen 13, Creatinine 1.0, Estimat Glomerular Filtration Rate > 60, Glucose Level 100, Calcium Level 8.2L, Magnesium Level 1.8, Iron Level 17L, Total Bilirubin 0.3, Aspartate Amino Transf (AST/SGOT) 25, Alanine Aminotransferase (ALT/SGPT) 16, Alkaline Phosphatase 77, Pro-B-Type Natriuretic Peptide 1256H, Total Protein 8.2 , Albumin 3.0L, Globulin 5.2, Albumin/Globulin Ratio 0.6L Current Medications Medications (Trade) Dose Ordered Sig/Ana Maria Route PRN Reason Start Time Stop Time Status Last Admin Dose Admin Albuterol/ Ipratropium (Albuterol/ Ipratropium) 3 ml Q8HRT HHN 12/18/19 07:00 12/23/19 06:59 12/19/19 07:30 Betamethasone/ Clotrimazole (Lotrisone) 1 applic TWICE A DAY TOPIC 12/19/19 18:00 12/29/19 17:59 Dextrose (Dextrose 50%) 25 ml Q30M PRN IV Hypoglycemia 12/17/19 23:45 03/16/20 23:44 Dextrose (Dextrose 50%) 25 ml Q30M PRN IV Hypoglycemia 12/18/19 20:00 03/17/20 19:59 Dextrose (Dextrose 50%) 50 ml Q30M PRN IV Hypoglycemia 12/17/19 23:45 03/16/20 23:44 Dextrose (Dextrose 50%) 50 ml Q30M PRN IV Hypoglycemia 12/18/19 20:00 03/17/20 19:59 Diphenhydramine HCl (Benadryl) 25 mg Q4H PRN IVP Itching 12/18/19 20:15 01/17/20 20:14 Furosemide (Lasix) 40 mg EVERY 12 HOURS IV 12/18/19 09:00 01/17/20 08:59 12/19/19 07:56 Gabapentin (Neurontin) 300 mg BEDTIME ORAL 12/18/19 21:00 01/17/20 20:59 12/18/19 21:29 Heparin Sodium (Porcine) (Heparin 5000 units/ml) 5,000 units EVERY 12 HOURS SUBQ 12/18/19 09:00 02/01/20 08:59 12/19/19 08:12 Insulin Aspart (NovoLOG) BEFORE MEALS AND HS SUBQ 12/18/19 21:00 03/17/20 20:59 Lisinopril (ZestriL) 10 mg DAILY ORAL 12/19/19 09:00 01/18/20 08:59 12/19/19 08:16 Morphine Sulfate (Morphine Sulfate) 2 mg Q4H PRN IVP For Pain 12/18/19 20:15 12/25/19 20:14 12/19/19 07:57 Potassium Chloride (K-Dur) 40 meq ONCE ORAL 12/19/19 12:00 12/19/19 13:00 12/19/19 12:06 Assessment/Plan Problems: (1) CHF exacerbation (2) Peripheral edema (3) COPD (chronic obstructive pulmonary disease) (4) Diabetic nephropathy (5) Obesity (BMI 30.0-34.9) (6) Diabetes mellitus (7) Chronic liver disease Assessment/Plan improving symptomatic treatment lasix IV, diuresing well respiratory treatment titrate fio2 to sat of 92% optimize cardiac meds dvt prophylaxis strict intake and output. Monika Sarmiento MD Dec 19, 2019 12:47
[2019-12-19] MEDS: Lotrisone Cream 15gm TOPIC SCH (13:55)
[2019-12-19 16:00] VITALS: BP 117/48
--- NOTE | 2019-12-19 19:15 | Cardiology Progress Note ---
Assessment/Plan Assessment/Plan 1. Chronic obstructive pulmonary disease. 2. Pulmonary hypertension. 3. Aortic stenosis. 4. Essential hypertension. 5. Diabetes mellitus. 6. Obesity. 7. Chronic liver disease. still with sig edema iv lasix switch nrovasc to acei in light of edema watch bp check iron and tibc stool ob will need med for more aggresive traetment of copd as out pt duplex neg for dvt ? Interstitial lugn disease? my office echo doppler were nto adequate window for acurate estimation of sched to have echo at [facility] as out pt may need to increase lasix to bid Objective Last 24 Hour Vital Signs Date Time Temp Pulse Resp B/P (MAP) Pulse Ox O2 Delivery O2 Flow Rate FiO2 12/19/19 16:00 97.8 93 20 117/48 (71) 93 12/19/19 16:00 93 12/19/19 15:23 85 18 97 Nasal Cannula 2.0 28 85 18 97 12/19/19 12:00 96 12/19/19 12:00 97.8 95 20 114/43 (66) 94 12/19/19 09:00 Nasal Cannula 2.0 12/19/19 08:16 122/45 12/19/19 08:00 95 12/19/19 08:00 97.8 99 22 122/45 (70) 91 12/19/19 07:40 80 19 95 Nasal Cannula 2.0 28 86 18 96 12/19/19 04:00 97.3 95 20 102/50 (67) 90 12/19/19 04:00 88 12/19/19 00:30 79 19 100 Nasal Cannula 2.0 28 81 18 98 12/19/19 00:30 79 18 98 Nasal Cannula 2.0 28 12/19/19 00:00 92 12/19/19 00:00 97.5 96 20 141/69 (93) 91 12/18/19 21:00 Nasal Cannula 2.0 12/18/19 20:00 97 12/18/19 20:00 97.9 80 20 112/53 (72) 91 Intake and Output 12/18/19 12/19/19 19:00 07:00 Intake Total 1400 ml Balance 1400 ml Intake Oral 1400 ml # Voids 2 Laboratory Tests Test 12/19/19 06:13 White Blood Count 9.9 K/UL (4.8-10.8) Red Blood Count 4.29 M/UL (4.20-5.40) Hemoglobin 8.6 G/DL (12.0-16.0) L Hematocrit 31.2 % (37.0-47.0) L Mean Corpuscular Volume 73 FL (80-99) L Mean Corpuscular Hemoglobin 20.1 PG (27.0-31.0) L Mean Corpuscular Hemoglobin Concent 27.6 G/DL (32.0-36.0) L Red Cell Distribution Width 17.6 % (11.6-14.8) H Platelet Count 385 K/UL (150-450) Mean Platelet Volume 6.6 FL (6.5-10.1) Neutrophils (%) (Auto) 66.2 % (45.0-75.0) Lymphocytes (%) (Auto) 17.9 % (20.0-45.0) L Monocytes (%) (Auto) 9.0 % (1.0-10.0) Eosinophils (%) (Auto) 5.6 % (0.0-3.0) H Basophils (%) (Auto) 1.2 % (0.0-2.0) Sodium Level 137 MMOL/L (136-145) Potassium Level 3.3 MMOL/L (3.5-5.1) L Chloride Level 101 MMOL/L (98-107) Carbon Dioxide Level 25 MMOL/L (21-32) Anion Gap 11 mmol/L (5-15) Blood Urea Nitrogen 13 mg/dL (7-18) Creatinine 1.0 MG/DL (0.55-1.30) Estimat Glomerular Filtration Rate > 60 mL/min (>60) Glucose Level 100 MG/DL (74-106) Calcium Level 8.2 MG/DL (8.5-10.1) L Magnesium Level 1.8 MG/DL (1.8-2.4) Iron Level 17 ug/dL (50-175) L Total Bilirubin 0.3 MG/DL (0.2-1.0) Aspartate Amino Transf (AST/SGOT) 25 U/L (15-37) Alanine Aminotransferase (ALT/SGPT) 16 U/L (12-78) Alkaline Phosphatase 77 U/L (46-116) Pro-B-Type Natriuretic Peptide 1256 pg/mL (0-125) H Total Protein 8.2 G/DL (6.4-8.2) Albumin 3.0 G/DL (3.4-5.0) L Globulin 5.2 g/dL Albumin/Globulin Ratio 0.6 (1.0-2.7) L Panfilo Mahan MD Dec 19, 2019 19:15
[2019-12-19 20:00] VITALS: BP 115/48
[2019-12-19] MEDS ORDERED: AMLODIPINE BESY10 MG ORAL (20:53)
[2019-12-19] MEDS ORDERED: ALBUTEROL SULF8.5 G1 INH (20:53)
[2019-12-19] MEDS ORDERED: ALBUTEROL1.25 MG/3 HHN (20:53)
[2019-12-19] MEDS ORDERED: CLOTRIMAZOLE15 GM TOPIC (20:53)
[2019-12-20] VITALS: BP 123/79
[2019-12-20 04:00] VITALS: BP 106/62
[2019-12-20] MEDS: NovoLOG Insulin Flexpen SUBQ SCH ×4 (05:53→21:11)
[2019-12-20] MEDS: Morphine Sulfate 2mg/ml Inj(IV/IM USE ONLY) IVP PRN ×3 (05:54→23:59)
[2019-12-20] MEDS: Albuterol/Ipratropium 3ml neb HHN SCH ×3 (07:04→23:26)
--- NOTE | 2019-12-20 07:43 | Pulmonology Progress Note ---
Subjective ROS Limited/Unobtainable: No Interval Events: diuresing well Allergies: Coded Allergies: No Known Allergies (Unverified , 06/17/12) All Systems: reviewed and negative except above Subjective on O2 via NC, no signs of resp distress no CP Objective Last 24 Hour Vital Signs Date Time Temp Pulse Resp B/P (MAP) Pulse Ox O2 Delivery O2 Flow Rate FiO2 12/20/19 07:04 80 18 98 Nasal Cannula 2.0 28 74 16 96 12/20/19 06:24 98.6 12/20/19 04:00 98.6 90 20 106/62 (77) 94 12/20/19 04:00 101 12/20/19 00:00 103 12/20/19 00:00 98.1 100 18 123/79 (94) 90 12/19/19 23:02 82 18 98 Nasal Cannula 2.0 28 80 18 95 12/19/19 21:00 Nasal Cannula 2.0 12/19/19 20:00 98.7 85 18 115/48 (70) 94 12/19/19 20:00 110 12/19/19 16:00 97.8 93 20 117/48 (71) 93 12/19/19 16:00 93 12/19/19 15:23 85 18 97 Nasal Cannula 2.0 28 85 18 97 12/19/19 12:00 96 12/19/19 12:00 97.8 95 20 114/43 (66) 94 12/19/19 09:00 Nasal Cannula 2.0 12/19/19 08:16 122/45 12/19/19 08:00 95 12/19/19 08:00 97.8 99 22 122/45 (70) 91 Intake and Output 12/19/19 12/20/19 19:00 07:00 Intake Total 600 ml 200 ml Balance 600 ml 200 ml Intake Oral 600 ml 200 ml # Voids 4 2 General Appearance: WD/WN HEENT: normocephalic, atraumatic, mucous membranes moist Respiratory: chest wall non-tender, lungs clear Cardiovascular: normal peripheral pulses, normal rate Abdomen: normal bowel sounds Extremities: other - edema +2 BLE Skin: no rash 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, abnormal gait - with walker , alert, oriented x 3, responsive Musculoskeletal: normal muscle bulk Current Medications Medications (Trade) Dose Ordered Sig/Ana Maria Route PRN Reason Start Time Stop Time Status Last Admin Dose Admin Albuterol/ Ipratropium (Albuterol/ Ipratropium) 3 ml Q8HRT HHN 12/18/19 07:00 12/23/19 06:59 12/20/19 07:04 Betamethasone/ Clotrimazole (Lotrisone) 1 applic TWICE A DAY TOPIC 12/19/19 18:00 12/29/19 17:59 12/19/19 13:55 Dextrose (Dextrose 50%) 25 ml Q30M PRN IV Hypoglycemia 12/17/19 23:45 03/16/20 23:44 Dextrose (Dextrose 50%) 25 ml Q30M PRN IV Hypoglycemia 12/18/19 20:00 03/17/20 19:59 Dextrose (Dextrose 50%) 50 ml Q30M PRN IV Hypoglycemia 12/17/19 23:45 03/16/20 23:44 Dextrose (Dextrose 50%) 50 ml Q30M PRN IV Hypoglycemia 12/18/19 20:00 03/17/20 19:59 Diphenhydramine HCl (Benadryl) 25 mg Q4H PRN IVP Itching 12/18/19 20:15 01/17/20 20:14 Furosemide (Lasix) 40 mg EVERY 12 HOURS IV 12/18/19 09:00 01/17/20 08:59 12/19/19 20:55 Gabapentin (Neurontin) 300 mg BEDTIME ORAL 12/18/19 21:00 01/17/20 20:59 12/19/19 20:55 Heparin Sodium (Porcine) (Heparin 5000 units/ml) 5,000 units EVERY 12 HOURS SUBQ 12/18/19 09:00 02/01/20 08:59 12/19/19 20:57 Insulin Aspart (NovoLOG) BEFORE MEALS AND HS SUBQ 12/18/19 21:00 03/17/20 20:59 12/20/19 05:53 Lisinopril (ZestriL) 10 mg DAILY ORAL 12/19/19 09:00 01/18/20 08:59 12/19/19 08:16 Morphine Sulfate (Morphine Sulfate) 2 mg Q4H PRN IVP For Pain 12/18/19 20:15 12/25/19 20:14 12/20/19 05:54 Assessment/Plan Assessment/Plan ASSESSMENT CHF exacerbation COPD Diabetic mellitus Hypertension Anemia Chronic liver disease Obesity PLAN of CARE tele diuresis with IV Lasix monitor volumes and cardiorenal parameters last ECHO in July 2019 with pEF BP management with JEANNIE O2 titrate to keep sat above 92 pulmonary toilet CXR noted , evidence of interstitial lung disease Venous duplex BLE no DVT DVT prophylaxis BS management with SSI avoid nephrotoxic potassium replaced, Mg stable monitor H&H with goal to keep hemoglobin above 7 anemia work-up trend LFT, remain stable supportive care case discussed and evaluated by supervising physician Asiya Parker NP Dec 20, 2019 07:43
[2019-12-20 08:14] VITALS: BP 125/50
[2019-12-20 08:52] LABS: BASOPHILS % (AUTO) 1.3 % (0.0-2.0); EOSINOPHILS % (AUTO) 4.4 % (0.0-3.0); HEMOGLOBIN 8.5 G/DL (12.0-16.0); LYMPHOCYTES % (AUTO) 19.1 % (20.0-45.0); MEAN CORPUSCULAR VOLUME 73 FL (80-99); MONOCYTES % (AUTO) 9.3 % (1.0-10.0); NEUTROPHILS % (AUTO) 65.9 % (45.0-75.0); PLATELET COUNT 369 K/UL (150-450); RED BLOOD COUNT 4.25 M/UL (4.20-5.40); RED CELL DISTRIBUTION WIDTH 17.5 % (11.6-14.8); WHITE BLOOD COUNT 10.5 K/UL (4.8-10.8)
[2019-12-20] MEDS: Lisinopril 10mg tab ORAL SCH (08:59)
[2019-12-20] MEDS: Lotrisone Cream 15gm TOPIC SCH ×2 (08:59→17:57)
[2019-12-20] MEDS: Heparin 5000 units/ml inj SUBQ SCH ×2 (08:59→20:38)
[2019-12-20 09:57] LABS: ANION GAP 9 mmol/L (5-15); BLOOD UREA NITROGEN 20 mg/dL (7-18); CALCIUM 8.5 MG/DL (8.5-10.1); CARBON DIOXIDE 27 MMOL/L (21-32); CHLORIDE 102 MMOL/L (98-107); CREATININE 1.1 MG/DL (0.55-1.30); POTASSIUM 3.8 MMOL/L (3.5-5.1); SODIUM 138 MMOL/L (136-145)
--- NOTE | 2019-12-20 10:19 | General Progress Note ---
Assessment/Plan Problem List: (1) Peripheral edema ICD Codes: R60.9 - Edema, unspecified SNOMED: 984547003 (2) Anemia ICD Codes: D64.9 - Anemia, unspecified SNOMED: 865848810 (3) Diabetes mellitus ICD Codes: E11.9 - Type 2 diabetes mellitus without complications SNOMED: 31756023 (4) COPD (chronic obstructive pulmonary disease) ICD Codes: J44.9 - Chronic obstructive pulmonary disease, unspecified SNOMED: 25918836 (5) Obesity (BMI 30.0-34.9) ICD Codes: E66.9 - Obesity, unspecified SNOMED: 180933650362569 (6) CHF exacerbation ICD Codes: I50.9 - Heart failure, unspecified SNOMED: 360889991, [id number] Qualifiers: Qualified Codes: I50.9 - Heart failure, unspecified Status: unchanged Assessment/Plan: o2 pulm ts diuese pt diet cbc bmp am Subjective Constitutional: Reports: weakness Allergies: Coded Allergies: No Known Allergies (Unverified , 06/17/12) All Systems: reviewed and negative except above Subjective o2nc sl sob Objective Last 24 Hour Vital Signs Date Time Temp Pulse Resp B/P (MAP) Pulse Ox O2 Delivery O2 Flow Rate FiO2 12/20/19 08:59 125/50 12/20/19 08:15 Nasal Cannula 2.0 12/20/19 08:14 97.5 99 20 125/50 (75) 93 12/20/19 08:00 102 12/20/19 07:04 80 18 98 Nasal Cannula 2.0 28 74 16 96 12/20/19 06:24 98.6 12/20/19 04:00 98.6 90 20 106/62 (77) 94 12/20/19 04:00 101 12/20/19 00:00 103 12/20/19 00:00 98.1 100 18 123/79 (94) 90 12/19/19 23:02 82 18 98 Nasal Cannula 2.0 28 80 18 95 12/19/19 21:00 Nasal Cannula 2.0 12/19/19 20:00 98.7 85 18 115/48 (70) 94 12/19/19 20:00 110 12/19/19 16:00 97.8 93 20 117/48 (71) 93 12/19/19 16:00 93 12/19/19 15:23 85 18 97 Nasal Cannula 2.0 28 85 18 97 12/19/19 12:00 96 12/19/19 12:00 97.8 95 20 114/43 (66) 94 Intake and Output 12/19/19 12/20/19 19:00 07:00 Intake Total 600 ml 200 ml Balance 600 ml 200 ml Intake Oral 600 ml 200 ml # Voids 4 2 Laboratory Tests 12/20/19 07:35: White Blood Count 10.5, Red Blood Count 4.25, Hemoglobin 8.5L, Hematocrit 31.0L , Mean Corpuscular Volume 73L, Mean Corpuscular Hemoglobin 20.0L, Mean Corpuscular Hemoglobin Concent 27.5L, Red Cell Distribution Width 17.5H, Platelet Count 369, Mean Platelet Volume 6.9, Neutrophils (%) (Auto) 65.9, Lymphocytes (%) (Auto) 19.1L, Monocytes (%) (Auto) 9.3, Eosinophils (%) (Auto) 4.4H, Basophils (%) (Auto) 1.3, Sodium Level 138, Potassium Level 3.8, Chloride Level 102, Carbon Dioxide Level 27, Anion Gap 9, Blood Urea Nitrogen 20H, Creatinine 1.1, Estimat Glomerular Filtration Rate 58.8, Glucose Level 124H, Calcium Level 8.5 Height (Feet): 5 Height (Inches): 2.00 Weight (Pounds): 192 General Appearance: lethargic EENT: normal ENT inspection Neck: normal alignment Cardiovascular: normal peripheral pulses, normal rate, regular rhythm Respiratory/Chest: chest wall non-tender, lungs clear, normal breath sounds Abdomen: normal bowel sounds, non tender, soft Extremities: normal inspection Edema: 1+ Arm (L), 1+ Arm (R), 1+ Leg (L), 1+ Leg (R), 1+ Pedal (L), 1+ Pedal ( R), 1+ Generalized Edema: trace edema Neurologic: motor weakness Skin: normal pigmentation, warm/dry Jai Siddiqi DO Dec 20, 2019 10:19
[2019-12-20 11:55] VITALS: BP 96/50
[2019-12-20 15:38] VITALS: BP 132/52
[2019-12-20 20:00] VITALS: BP 137/74
--- NOTE | 2019-12-20 21:02 | Cardiology Progress Note ---
Assessment/Plan Assessment/Plan CHF, continue diuresis, follow labs Subjective Subjective the patient is resting in bed, she reports feeling better, her dyspnea improved. Objective Last 24 Hour Vital Signs Date Time Temp Pulse Resp B/P (MAP) Pulse Ox O2 Delivery O2 Flow Rate FiO2 12/20/19 17:22 97.9 12/20/19 15:40 100 12/20/19 15:38 97.9 100 20 132/52 (78) 92 12/20/19 14:32 Nasal Cannula 2.0 28 12/20/19 12:00 97 12/20/19 11:55 97.2 109 22 96/50 (65) 91 12/20/19 08:59 125/50 12/20/19 08:15 Nasal Cannula 2.0 12/20/19 08:14 97.5 99 20 125/50 (75) 93 12/20/19 08:00 102 12/20/19 07:04 80 18 98 Nasal Cannula 2.0 28 74 16 96 12/20/19 04:00 98.6 90 20 106/62 (77) 94 12/20/19 04:00 101 12/20/19 00:00 103 12/20/19 00:00 98.1 100 18 123/79 (94) 90 12/19/19 23:02 82 18 98 Nasal Cannula 2.0 28 80 18 95 12/19/19 21:00 Nasal Cannula 2.0 General Appearance: mild distress EENT: PERRL/EOMI Neck: JVD Rhythm: PACs Cardiovascular: normal rate, systolic murmur Respiratory/Chest: no accessory muscle use, crackles/rales Abdomen: soft Intake and Output 12/19/19 12/20/19 19:00 07:00 Intake Total 600 ml 200 ml Balance 600 ml 200 ml Intake Oral 600 ml 200 ml # Voids 4 2 Laboratory Tests Test 12/20/19 07:35 White Blood Count 10.5 K/UL (4.8-10.8) Red Blood Count 4.25 M/UL (4.20-5.40) Hemoglobin 8.5 G/DL (12.0-16.0) L Hematocrit 31.0 % (37.0-47.0) L Mean Corpuscular Volume 73 FL (80-99) L Mean Corpuscular Hemoglobin 20.0 PG (27.0-31.0) L Mean Corpuscular Hemoglobin Concent 27.5 G/DL (32.0-36.0) L Red Cell Distribution Width 17.5 % (11.6-14.8) H Platelet Count 369 K/UL (150-450) Mean Platelet Volume 6.9 FL (6.5-10.1) Neutrophils (%) (Auto) 65.9 % (45.0-75.0) Lymphocytes (%) (Auto) 19.1 % (20.0-45.0) L Monocytes (%) (Auto) 9.3 % (1.0-10.0) Eosinophils (%) (Auto) 4.4 % (0.0-3.0) H Basophils (%) (Auto) 1.3 % (0.0-2.0) Sodium Level 138 MMOL/L (136-145) Potassium Level 3.8 MMOL/L (3.5-5.1) Chloride Level 102 MMOL/L (98-107) Carbon Dioxide Level 27 MMOL/L (21-32) Anion Gap 9 mmol/L (5-15) Blood Urea Nitrogen 20 mg/dL (7-18) H Creatinine 1.1 MG/DL (0.55-1.30) Estimat Glomerular Filtration Rate 58.8 mL/min (>60) Glucose Level 124 MG/DL (74-106) H Calcium Level 8.5 MG/DL (8.5-10.1) Ernestina Ansari MD Dec 20, 2019 21:01
[2019-12-21] VITALS: BP 129/74
[2019-12-21 04:00] VITALS: BP 139/74
[2019-12-21] MEDS: Morphine Sulfate 2mg/ml Inj(IV/IM USE ONLY) IVP PRN ×2 (04:39→16:56)
[2019-12-21] MEDS: NovoLOG Insulin Flexpen SUBQ SCH ×4 (06:05→21:20)
[2019-12-21] MEDS: Albuterol/Ipratropium 3ml neb HHN SCH ×3 (07:00→22:51)
--- NOTE | 2019-12-21 07:43 | Pulmonology Progress Note ---
Subjective ROS Limited/Unobtainable: No Interval Events: diuresing well Allergies: Coded Allergies: No Known Allergies (Unverified , 06/17/12) Subjective on O2 via NC, no signs of resp distress no CP Objective Last 24 Hour Vital Signs Date Time Temp Pulse Resp B/P (MAP) Pulse Ox O2 Delivery O2 Flow Rate FiO2 12/21/19 05:10 98.3 12/21/19 04:00 98.4 89 22 139/74 (95) 94 12/21/19 04:00 102 12/21/19 00:00 98.3 74 18 129/74 (92) 97 12/21/19 00:00 99 12/20/19 23:25 105 18 98 Nasal Cannula 2.0 28 103 18 95 12/20/19 21:27 Nasal Cannula 2.0 12/20/19 20:00 108 12/20/19 20:00 98.7 87 18 137/74 (95) 98 12/20/19 15:40 100 12/20/19 15:38 97.9 100 20 132/52 (78) 92 12/20/19 14:32 Nasal Cannula 2.0 28 12/20/19 12:00 97 12/20/19 11:55 97.2 109 22 96/50 (65) 91 12/20/19 08:59 125/50 12/20/19 08:15 Nasal Cannula 2.0 12/20/19 08:14 97.5 99 20 125/50 (75) 93 12/20/19 08:00 102 Intake and Output 12/20/19 12/21/19 19:00 07:00 Intake Total 360 ml 120 ml Output Total 800 ml Balance 360 ml -680 ml Intake Oral 360 ml 120 ml Output Urine Total 800 ml # Voids 5 2 # Bowel Movements 1 General Appearance: WD/WN HEENT: normocephalic, atraumatic, mucous membranes moist Respiratory: chest wall non-tender, lungs clear Cardiovascular: normal peripheral pulses, normal rate Abdomen: normal bowel sounds Extremities: other - edema +2 BLE Skin: no rash 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, abnormal gait - with walker , alert, oriented x 3, responsive Musculoskeletal: normal muscle bulk Current Medications Medications (Trade) Dose Ordered Sig/Ana Maria Route PRN Reason Start Time Stop Time Status Last Admin Dose Admin Albuterol/ Ipratropium (Albuterol/ Ipratropium) 3 ml Q8HRT HHN 12/18/19 07:00 12/23/19 06:59 12/20/19 23:26 Betamethasone/ Clotrimazole (Lotrisone) 1 applic TWICE A DAY TOPIC 12/19/19 18:00 12/29/19 17:59 12/20/19 17:57 Dextrose (Dextrose 50%) 25 ml Q30M PRN IV Hypoglycemia 12/17/19 23:45 03/16/20 23:44 Dextrose (Dextrose 50%) 25 ml Q30M PRN IV Hypoglycemia 12/18/19 20:00 03/17/20 19:59 Dextrose (Dextrose 50%) 50 ml Q30M PRN IV Hypoglycemia 12/17/19 23:45 03/16/20 23:44 Dextrose (Dextrose 50%) 50 ml Q30M PRN IV Hypoglycemia 12/18/19 20:00 03/17/20 19:59 Diphenhydramine HCl (Benadryl) 25 mg Q4H PRN IVP Itching 12/18/19 20:15 01/17/20 20:14 Furosemide (Lasix) 40 mg EVERY 12 HOURS IV 12/18/19 09:00 01/17/20 08:59 12/20/19 20:37 Gabapentin (Neurontin) 300 mg BEDTIME ORAL 12/18/19 21:00 01/17/20 20:59 12/20/19 20:37 Heparin Sodium (Porcine) (Heparin 5000 units/ml) 5,000 units EVERY 12 HOURS SUBQ 12/18/19 09:00 02/01/20 08:59 12/20/19 20:38 Insulin Aspart (NovoLOG) BEFORE MEALS AND HS SUBQ 12/18/19 21:00 03/17/20 20:59 12/21/19 06:05 Lisinopril (ZestriL) 10 mg DAILY ORAL 12/19/19 09:00 01/18/20 08:59 12/20/19 08:59 Morphine Sulfate (Morphine Sulfate) 2 mg Q4H PRN IVP For Pain 12/18/19 20:15 12/25/19 20:14 12/21/19 04:39 Assessment/Plan Assessment/Plan ASSESSMENT CHF exacerbation COPD Diabetic mellitus Hypertension Anemia Chronic liver disease Obesity PLAN of CARE tele diuresis with IV Lasix creat up to 1.3 will decrease Lasix dose to daily monitor volumes and cardiorenal parameters check BNP and CXR in am last ECHO in July 2019 with pEF BP management with JEANNIE O2 titrate to keep sat above 92 pulmonary toilet CXR noted , evidence of interstitial lung disease Venous duplex BLE no DVT DVT prophylaxis BS management with SSI avoid nephrotoxic potassium replaced, Mg stable monitor H&H with goal to keep hemoglobin above 7 anemia work-up trend LFT, remain stable supportive care case discussed and evaluated by supervising physician Asiya Parker NP Dec 21, 2019 07:43
[2019-12-21 08:06] VITALS: BP 127/56
[2019-12-21] MEDS: Lisinopril 10mg tab ORAL SCH (08:48)
[2019-12-21] MEDS: Lotrisone Cream 15gm TOPIC SCH ×2 (08:48→17:03)
[2019-12-21] MEDS: Heparin 5000 units/ml inj SUBQ SCH ×2 (08:49→20:16)
--- NOTE | 2019-12-21 09:15 | General Progress Note ---
Assessment/Plan Problem List: (1) Peripheral edema ICD Codes: R60.9 - Edema, unspecified SNOMED: 152432673 (2) Anemia ICD Codes: D64.9 - Anemia, unspecified SNOMED: 182523512 (3) Diabetes mellitus ICD Codes: E11.9 - Type 2 diabetes mellitus without complications SNOMED: 84829874 (4) COPD (chronic obstructive pulmonary disease) ICD Codes: J44.9 - Chronic obstructive pulmonary disease, unspecified SNOMED: 80163862 (5) Obesity (BMI 30.0-34.9) ICD Codes: E66.9 - Obesity, unspecified SNOMED: 837655724154418 (6) CHF exacerbation ICD Codes: I50.9 - Heart failure, unspecified SNOMED: 589452013, 57546305276029 Qualifiers: Qualified Codes: I50.9 - Heart failure, unspecified Status: unchanged Assessment/Plan: o2 pulm ts diuese pt diet cbc bmp am aru eval Subjective Constitutional: Reports: weakness Allergies: Coded Allergies: No Known Allergies (Unverified , 06/17/12) All Systems: reviewed and negative except above Subjective sleepy calm Objective Last 24 Hour Vital Signs Date Time Temp Pulse Resp B/P (MAP) Pulse Ox O2 Delivery O2 Flow Rate FiO2 12/21/19 08:48 127/56 12/21/19 08:07 Nasal Cannula 2.0 12/21/19 08:06 97.5 96 20 127/56 (79) 93 12/21/19 08:06 96 12/21/19 07:55 97 20 99 Nasal Cannula 2.0 28 95 20 96 12/21/19 05:10 98.3 12/21/19 04:00 98.4 89 22 139/74 (95) 94 12/21/19 04:00 102 12/21/19 00:00 98.3 74 18 129/74 (92) 97 12/21/19 00:00 99 12/20/19 23:25 105 18 98 Nasal Cannula 2.0 28 103 18 95 12/20/19 21:27 Nasal Cannula 2.0 12/20/19 20:00 108 12/20/19 20:00 98.7 87 18 137/74 (95) 98 12/20/19 15:40 100 12/20/19 15:38 97.9 100 20 132/52 (78) 92 12/20/19 14:32 Nasal Cannula 2.0 28 12/20/19 12:00 97 12/20/19 11:55 97.2 109 22 96/50 (65) 91 Intake and Output 12/20/19 12/21/19 19:00 07:00 Intake Total 360 ml 120 ml Output Total 800 ml Balance 360 ml -680 ml Intake Oral 360 ml 120 ml Output Urine Total 800 ml # Voids 5 2 # Bowel Movements 1 Laboratory Tests 12/21/19 08:40: White Blood Count [Pending], Red Blood Count [Pending], Hemoglobin [Pending], Hematocrit [Pending], Mean Corpuscular Volume [Pending], Mean Corpuscular Hemoglobin [Pending], Mean Corpuscular Hemoglobin Concent [Pending], Red Cell Distribution Width [Pending], Platelet Count [Pending], Mean Platelet Volume [ Pending], Neutrophils (%) (Auto) [Pending], Lymphocytes (%) (Auto) [Pending], Monocytes (%) (Auto) [Pending], Eosinophils (%) (Auto) [Pending], Basophils (%) (Auto) [Pending], Sodium Level [Pending], Potassium Level [Pending], Chloride Level [Pending], Carbon Dioxide Level [Pending], Blood Urea Nitrogen [Pending], Creatinine [Pending], Estimat Glomerular Filtration Rate [Pending], Glucose Level [Pending], Calcium Level [Pending] Height (Feet): 5 Height (Inches): 2.00 Weight (Pounds): 192 General Appearance: lethargic EENT: normal ENT inspection Neck: normal alignment Cardiovascular: normal peripheral pulses, normal rate, regular rhythm Respiratory/Chest: chest wall non-tender, lungs clear, normal breath sounds Abdomen: normal bowel sounds, non tender Extremities: normal inspection Edema: 1+ Arm (L), 1+ Arm (R), 1+ Leg (L), 1+ Leg (R), 1+ Pedal (L), 1+ Pedal ( R), 1+ Generalized Edema: trace edema Neurologic: motor weakness Skin: normal pigmentation, warm/dry Jai Siddiqi DO Dec 21, 2019 09:15
[2019-12-21 09:23] LABS: EOSINOPHILS % (AUTO) 2.2 % (0.0-3.0); HEMATOCRIT 30.4 % (37.0-47.0); HEMOGLOBIN 8.5 G/DL (12.0-16.0); LYMPHOCYTES % (AUTO) 10.6 % (20.0-45.0); MEAN CORPUSCULAR VOLUME 72 FL (80-99); MONOCYTES % (AUTO) 4.7 % (1.0-10.0); NEUTROPHILS % (AUTO) 81.5 % (45.0-75.0); PLATELET COUNT 408 K/UL (150-450); RED BLOOD COUNT 4.22 M/UL (4.20-5.40); RED CELL DISTRIBUTION WIDTH 20.7 % (11.6-14.8); WHITE BLOOD COUNT 10.4 K/UL (4.8-10.8)
[2019-12-21 09:28] LABS: ANION GAP 11 mmol/L (5-15); BLOOD UREA NITROGEN 21 mg/dL (7-18); CALCIUM 8.5 MG/DL (8.5-10.1); CARBON DIOXIDE 25 MMOL/L (21-32); CHLORIDE 100 MMOL/L (98-107); CREATININE 1.3 MG/DL (0.55-1.30); POTASSIUM 3.9 MMOL/L (3.5-5.1); SODIUM 136 MMOL/L (136-145)
[2019-12-21 11:43] VITALS: BP 110/54
[2019-12-21 16:00] VITALS: BP 128/56
[2019-12-21 19:57] VITALS: BP 102/57
--- NOTE | 2019-12-21 20:55 | Cardiology Progress Note ---
Assessment/Plan Assessment/Plan CHF, continue diuresis, follow labs Subjective Subjective the patient is resting in bed, she reports feeling better, her dyspnea improved. Objective Last 24 Hour Vital Signs Date Time Temp Pulse Resp B/P (MAP) Pulse Ox O2 Delivery O2 Flow Rate FiO2 12/21/19 19:57 97.5 103 20 102/57 (72) 95 12/21/19 16:00 97.5 97 20 128/56 (80) 97 12/21/19 15:49 87 20 97 Nasal Cannula 2.0 28 89 20 95 12/21/19 15:15 92 12/21/19 11:44 95 12/21/19 11:43 97.2 95 22 110/54 (72) 94 12/21/19 08:48 127/56 12/21/19 08:07 Nasal Cannula 2.0 12/21/19 08:06 97.5 96 20 127/56 (79) 93 12/21/19 08:06 96 12/21/19 07:55 97 20 99 Nasal Cannula 2.0 28 95 20 96 12/21/19 05:10 98.3 12/21/19 04:00 98.4 89 22 139/74 (95) 94 12/21/19 04:00 102 12/21/19 00:00 98.3 74 18 129/74 (92) 97 12/21/19 00:00 99 12/20/19 23:25 105 18 98 Nasal Cannula 2.0 28 103 18 95 12/20/19 21:27 Nasal Cannula 2.0 General Appearance: WD/WN, mild distress EENT: PERRL/EOMI Neck: JVD Rhythm: NSR Cardiovascular: regular rhythm, systolic murmur, irregularly irregular Respiratory/Chest: crackles/rales Abdomen: soft Extremities: normal capillary refill Intake and Output 12/20/19 12/21/19 19:00 07:00 Intake Total 360 ml 120 ml Output Total 800 ml Balance 360 ml -680 ml Intake Oral 360 ml 120 ml Output Urine Total 800 ml # Voids 5 2 # Bowel Movements 1 Laboratory Tests Test 12/21/19 08:40 White Blood Count 10.4 K/UL (4.8-10.8) Red Blood Count 4.22 M/UL (4.20-5.40) Hemoglobin 8.5 G/DL (12.0-16.0) L Hematocrit 30.4 % (37.0-47.0) L Mean Corpuscular Volume 72 FL (80-99) L Mean Corpuscular Hemoglobin 20.1 PG (27.0-31.0) L Mean Corpuscular Hemoglobin Concent 27.9 G/DL (32.0-36.0) L Red Cell Distribution Width 20.7 % (11.6-14.8) H Platelet Count 408 K/UL (150-450) Mean Platelet Volume 6.4 FL (6.5-10.1) L Neutrophils (%) (Auto) 81.5 % (45.0-75.0) H Lymphocytes (%) (Auto) 10.6 % (20.0-45.0) L Monocytes (%) (Auto) 4.7 % (1.0-10.0) Eosinophils (%) (Auto) 2.2 % (0.0-3.0) Basophils (%) (Auto) 1.0 % (0.0-2.0) Sodium Level 136 MMOL/L (136-145) Potassium Level 3.9 MMOL/L (3.5-5.1) Chloride Level 100 MMOL/L (98-107) Carbon Dioxide Level 25 MMOL/L (21-32) Anion Gap 11 mmol/L (5-15) Blood Urea Nitrogen 21 mg/dL (7-18) H Creatinine 1.3 MG/DL (0.55-1.30) Estimat Glomerular Filtration Rate 48.4 mL/min (>60) Glucose Level 173 MG/DL (74-106) H Calcium Level 8.5 MG/DL (8.5-10.1) Ernestina Ansari MD Dec 21, 2019 20:55
--- NOTE | 2019-12-21 21:27 | Diagnostic Imaging Report ---
EXAM: XR Chest, 1 View CLINICAL HISTORY: COUGH TECHNIQUE: Frontal view of the chest. COMPARISON: 12/17/2019 FINDINGS: Lungs: Unchanged atelectasis/interstitial thickening at the lung bases. Pleural space: No pleural effusion. No pneumothorax. Heart: Mild cardiomegaly. Bones/joints: Unremarkable. IMPRESSION: 1. Unchanged atelectasis/interstitial thickening at the lung bases. 2. Mild cardiomegaly.
[2019-12-21] MEDS ORDERED: Promethazine/Codeine 5ml UD ORAL PRN (22:00)
[2019-12-22] VITALS: BP 140/50
[2019-12-22] MEDS: Morphine Sulfate 2mg/ml Inj(IV/IM USE ONLY) IVP PRN ×4 (00:14→17:43)
[2019-12-22 04:00] VITALS: BP 133/60
[2019-12-22] MEDS: NovoLOG Insulin Flexpen SUBQ SCH ×4 (06:18→20:33)
[2019-12-22] MEDS: Albuterol/Ipratropium 3ml neb HHN SCH ×3 (07:19→22:32)
[2019-12-22 07:36] LABS: EOSINOPHILS % (AUTO) 4.4 % (0.0-3.0); HEMATOCRIT 28.9 % (37.0-47.0); LYMPHOCYTES % (AUTO) 13.6 % (20.0-45.0); MEAN CORPUSCULAR VOLUME 73 FL (80-99); MONOCYTES % (AUTO) 8.4 % (1.0-10.0); NEUTROPHILS % (AUTO) 72.6 % (45.0-75.0); PLATELET COUNT 401 K/UL (150-450); RED BLOOD COUNT 3.98 M/UL (4.20-5.40); RED CELL DISTRIBUTION WIDTH 20.5 % (11.6-14.8); WHITE BLOOD COUNT 12.4 K/UL (4.8-10.8)
[2019-12-22 07:54] LABS: ANION GAP 10 mmol/L (5-15); BLOOD UREA NITROGEN 23 mg/dL (7-18); CALCIUM 8.8 MG/DL (8.5-10.1); CARBON DIOXIDE 27 MMOL/L (21-32); CHLORIDE 101 MMOL/L (98-107); CREATININE 1.3 MG/DL (0.55-1.30); POTASSIUM 3.5 MMOL/L (3.5-5.1); SODIUM 137 MMOL/L (136-145)
[2019-12-22 08:00] VITALS: BP 122/51
[2019-12-22] MEDS: Lisinopril 10mg tab ORAL SCH (08:24)
--- NOTE | 2019-12-22 08:24 | General Progress Note ---
Assessment/Plan Problem List: (1) Peripheral edema ICD Codes: R60.9 - Edema, unspecified SNOMED: 545268076 (2) Anemia ICD Codes: D64.9 - Anemia, unspecified SNOMED: 671551699 (3) Diabetes mellitus ICD Codes: E11.9 - Type 2 diabetes mellitus without complications SNOMED: 22885625 (4) COPD (chronic obstructive pulmonary disease) ICD Codes: J44.9 - Chronic obstructive pulmonary disease, unspecified SNOMED: 27579353 (5) Obesity (BMI 30.0-34.9) ICD Codes: E66.9 - Obesity, unspecified SNOMED: 762719624755043 (6) CHF exacerbation ICD Codes: I50.9 - Heart failure, unspecified SNOMED: 333912023, [id number] Qualifiers: Qualified Codes: I50.9 - Heart failure, unspecified Status: unchanged Assessment/Plan: o2 pulm ts diuese pt diet cbc bmp am aru eval Subjective Constitutional: Reports: weakness Allergies: Coded Allergies: No Known Allergies (Unverified , 06/17/12) All Systems: reviewed and negative except above Subjective o2 nc sleepy calm Objective Last 24 Hour Vital Signs Date Time Temp Pulse Resp B/P (MAP) Pulse Ox O2 Delivery O2 Flow Rate FiO2 12/22/19 08:00 97.6 97 20 122/51 (74) 90 12/22/19 07:29 94 Nasal Cannula 2.0 28 12/22/19 07:29 95 20 97 Nasal Cannula 2.0 28 99 20 94 12/22/19 04:05 110 12/22/19 04:00 98.4 99 20 133/60 (84) 90 12/22/19 00:44 99.7 12/22/19 00:01 104 12/22/19 00:00 99.7 107 20 140/50 (80) 90 12/21/19 23:01 96 20 99 Nasal Cannula 2.0 28 12/21/19 22:51 95 20 96 Nasal Cannula 2.0 28 12/21/19 22:51 96 Nasal Cannula 2.0 28 12/21/19 21:44 Nasal Cannula 2.0 12/21/19 20:00 102 12/21/19 19:57 97.5 103 20 102/57 (72) 95 12/21/19 16:00 97.5 97 20 128/56 (80) 97 12/21/19 15:49 87 20 97 Nasal Cannula 2.0 28 89 20 95 12/21/19 15:15 92 12/21/19 11:44 95 12/21/19 11:43 97.2 95 22 110/54 (72) 94 12/21/19 08:48 127/56 Intake and Output 12/21/19 12/22/19 19:00 07:00 Intake Total 480 ml Balance 480 ml Intake Oral 480 ml # Voids 5 Laboratory Tests 12/21/19 08:40: White Blood Count 10.4, Red Blood Count 4.22, Hemoglobin 8.5L, Hematocrit 30.4L , Mean Corpuscular Volume 72L, Mean Corpuscular Hemoglobin 20.1L, Mean Corpuscular Hemoglobin Concent 27.9L, Red Cell Distribution Width 20.7H, Platelet Count 408, Mean Platelet Volume 6.4L, Neutrophils (%) (Auto) 81.5H, Lymphocytes (%) (Auto) 10.6L, Monocytes (%) (Auto) 4.7, Eosinophils (%) (Auto) 2.2, Basophils (%) (Auto) 1.0, Sodium Level 136, Potassium Level 3.9, Chloride Level 100, Carbon Dioxide Level 25, Anion Gap 11, Blood Urea Nitrogen 21H, Creatinine 1.3, Estimat Glomerular Filtration Rate 48.4, Glucose Level 173H, Calcium Level 8.5 12/22/19 06:15: White Blood Count 12.4H, Red Blood Count 3.98L, Hemoglobin 8.0L, Hematocrit 28.9L, Mean Corpuscular Volume 73L, Mean Corpuscular Hemoglobin 20.2L, Mean Corpuscular Hemoglobin Concent 27.8L, Red Cell Distribution Width 20.5H, Platelet Count 401, Mean Platelet Volume 7.0, Neutrophils (%) (Auto) 72.6, Lymphocytes (%) (Auto) 13.6L, Monocytes (%) (Auto) 8.4, Eosinophils (%) (Auto) 4.4H, Basophils (%) (Auto) 1.0, Sodium Level 137, Potassium Level 3.5, Chloride Level 101, Carbon Dioxide Level 27, Anion Gap 10, Blood Urea Nitrogen 23H, Creatinine 1.3, Estimat Glomerular Filtration Rate 48.4, Glucose Level 162H, Calcium Level 8.8, Pro-B-Type Natriuretic Peptide [Pending] Height (Feet): 5 Height (Inches): 2.00 Weight (Pounds): 192 General Appearance: lethargic EENT: normal ENT inspection Neck: normal alignment Cardiovascular: normal peripheral pulses, normal rate, regular rhythm Respiratory/Chest: chest wall non-tender, lungs clear, normal breath sounds Abdomen: normal bowel sounds, non tender, soft Extremities: normal inspection Edema: 1+ Arm (L), 1+ Arm (R), 1+ Leg (L), 1+ Leg (R), 1+ Pedal (L), 1+ Pedal ( R), 1+ Generalized Edema: trace edema Neurologic: motor weakness Skin: normal pigmentation, warm/dry Jai Siddiqi DO Dec 22, 2019 08:24
[2019-12-22] MEDS: Heparin 5000 units/ml inj SUBQ SCH ×2 (08:26→20:31)
--- NOTE | 2019-12-22 09:33 | Diagnostic Imaging Report ---
Procedure: XRAY Chest 1v Reason for study: Shortness of breath Comparison films: 12/21/2019. FINDINGS: A single one view chest is obtained. Vascular and interstitial prominence unchanged. Minimal streaky atelectasis in the lung bases noted. There is mild cardiomegaly and tortuous aorta. CP angles are sharp. The bony thorax appear unremarkable. IMPRESSION: NO SIGNIFICANT CHANGE COMPARED TO PREVIOUS EXAM.
[2019-12-22] MEDS: Lotrisone Cream 15gm TOPIC SCH ×2 (09:45→17:41)
--- NOTE | 2019-12-22 11:42 | Pulmonology Progress Note ---
Subjective ROS Limited/Unobtainable: No Interval Events: diuresing well Constitutional: Reports: no symptoms HEENT: Repors: no symptoms Allergies: Coded Allergies: No Known Allergies (Unverified , 06/17/12) All Systems: reviewed and negative except above Objective Last 24 Hour Vital Signs Date Time Temp Pulse Resp B/P (MAP) Pulse Ox O2 Delivery O2 Flow Rate FiO2 12/22/19 09:00 Nasal Cannula 2.0 12/22/19 08:24 122/51 12/22/19 08:00 97.6 97 20 122/51 (74) 90 12/22/19 07:29 94 Nasal Cannula 2.0 28 12/22/19 07:29 95 20 97 Nasal Cannula 2.0 28 99 20 94 12/22/19 04:05 110 12/22/19 04:00 98.4 99 20 133/60 (84) 90 12/22/19 00:44 99.7 12/22/19 00:01 104 12/22/19 00:00 99.7 107 20 140/50 (80) 90 12/21/19 23:01 96 20 99 Nasal Cannula 2.0 28 12/21/19 22:51 95 20 96 Nasal Cannula 2.0 28 12/21/19 22:51 96 Nasal Cannula 2.0 28 12/21/19 21:44 Nasal Cannula 2.0 12/21/19 20:00 102 12/21/19 19:57 97.5 103 20 102/57 (72) 95 12/21/19 16:00 97.5 97 20 128/56 (80) 97 12/21/19 15:49 87 20 97 Nasal Cannula 2.0 28 89 20 95 12/21/19 15:15 92 12/21/19 11:44 95 12/21/19 11:43 97.2 95 22 110/54 (72) 94 Intake and Output 12/21/19 12/22/19 19:00 07:00 Intake Total 480 ml Balance 480 ml Intake Oral 480 ml # Voids 5 General Appearance: WD/WN HEENT: normocephalic, atraumatic, mucous membranes moist Respiratory: chest wall non-tender, lungs clear Cardiovascular: normal peripheral pulses, normal rate Abdomen: normal bowel sounds Extremities: other - edema +2 BLE Skin: no rash 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, abnormal gait - with walker , alert, oriented x 3, responsive Musculoskeletal: normal muscle bulk Laboratory Tests 12/22/19 06:15: White Blood Count 12.4H, Red Blood Count 3.98L, Hemoglobin 8.0L, Hematocrit 28.9L, Mean Corpuscular Volume 73L, Mean Corpuscular Hemoglobin 20.2L, Mean Corpuscular Hemoglobin Concent 27.8L, Red Cell Distribution Width 20.5H, Platelet Count 401, Mean Platelet Volume 7.0, Neutrophils (%) (Auto) 72.6, Lymphocytes (%) (Auto) 13.6L, Monocytes (%) (Auto) 8.4, Eosinophils (%) (Auto) 4.4H, Basophils (%) (Auto) 1.0, Sodium Level 137, Potassium Level 3.5, Chloride Level 101, Carbon Dioxide Level 27, Anion Gap 10, Blood Urea Nitrogen 23H, Creatinine 1.3, Estimat Glomerular Filtration Rate 48.4, Glucose Level 162H, Calcium Level 8.8, Pro-B-Type Natriuretic Peptide 1463H Current Medications Medications (Trade) Dose Ordered Sig/Ana Maria Route PRN Reason Start Time Stop Time Status Last Admin Dose Admin Albuterol/ Ipratropium (Albuterol/ Ipratropium) 3 ml Q8HRT HHN 12/18/19 07:00 12/23/19 06:59 12/22/19 07:19 Betamethasone/ Clotrimazole (Lotrisone) 1 applic TWICE A DAY TOPIC 12/19/19 18:00 12/29/19 17:59 12/22/19 09:45 Dextrose (Dextrose 50%) 25 ml Q30M PRN IV Hypoglycemia 12/17/19 23:45 03/16/20 23:44 Dextrose (Dextrose 50%) 25 ml Q30M PRN IV Hypoglycemia 12/18/19 20:00 03/17/20 19:59 Dextrose (Dextrose 50%) 50 ml Q30M PRN IV Hypoglycemia 12/17/19 23:45 03/16/20 23:44 Dextrose (Dextrose 50%) 50 ml Q30M PRN IV Hypoglycemia 12/18/19 20:00 03/17/20 19:59 Diphenhydramine HCl (Benadryl) 25 mg Q4H PRN IVP Itching 12/18/19 20:15 01/17/20 20:14 Furosemide (Lasix) 40 mg DAILY IV 12/22/19 09:00 01/17/20 08:59 12/22/19 08:24 Gabapentin (Neurontin) 300 mg BEDTIME ORAL 12/18/19 21:00 01/17/20 20:59 12/21/19 20:15 Heparin Sodium (Porcine) (Heparin 5000 units/ml) 5,000 units EVERY 12 HOURS SUBQ 12/18/19 09:00 02/01/20 08:59 12/22/19 08:26 Insulin Aspart (NovoLOG) BEFORE MEALS AND HS SUBQ 12/18/19 21:00 03/17/20 20:59 12/22/19 11:31 Lisinopril (ZestriL) 10 mg DAILY ORAL 12/19/19 09:00 01/18/20 08:59 12/22/19 08:24 Morphine Sulfate (Morphine Sulfate) 2 mg Q4H PRN IVP For Pain 12/18/19 20:15 12/25/19 20:14 12/22/19 06:23 Promethazine HCl/ Codeine (Phenergan with Codeine) 5 ml Q4H PRN ORAL For Cough 12/21/19 22:00 01/20/20 21:59 12/21/19 22:12 Assessment/Plan Problems: (1) CHF exacerbation (2) Peripheral edema (3) COPD (chronic obstructive pulmonary disease) (4) Diabetic nephropathy (5) Obesity (BMI 30.0-34.9) (6) Diabetes mellitus (7) Chronic liver disease Assessment/Plan improving symptomatic treatment lasix IV, diuresing well, bun/ creatinine rising respiratory treatment titrate fio2 to sat of 92% optimize cardiac meds dvt prophylaxis strict intake and output. Monika Sarmiento MD Dec 22, 2019 11:42
[2019-12-22 12:00] VITALS: BP 123/51
[2019-12-22 16:00] VITALS: BP 123/54
--- NOTE | 2019-12-22 18:51 | Cardiology Progress Note ---
Assessment/Plan Assessment/Plan 1. Chronic obstructive pulmonary disease. 2. Pulmonary hypertension. 3. Aortic stenosis. 4. Essential hypertension. 5. Diabetes mellitus. 6. Obesity. 7. Chronic liver disease. still with sig edema iv lasix on acei instead of norvasc watch bp stool ob will need med for more aggressive treatment of copd as out pt duplex neg for dvt ? Interstitial lugn disease? my office echo doppler were nto adequate window for accurate estimation of sched to have echo at [facility] as out pt cr increase so on lower dose of lasix Subjective Cardiovascular: Denies: chest pain, lightheadedness, palpitations Respiratory: Reports: cough, shortness of breath Gastrointestinal/Abdominal: Denies: abdominal pain Genitourinary: Denies: burning Objective Last 24 Hour Vital Signs Date Time Temp Pulse Resp B/P (MAP) Pulse Ox O2 Delivery O2 Flow Rate FiO2 12/22/19 16:00 98 12/22/19 16:00 97.9 95 20 123/54 (77) 91 12/22/19 14:45 95 20 99 Nasal Cannula 2.0 28 90 20 96 12/22/19 12:00 97.9 98 20 123/51 (75) 88 12/22/19 12:00 94 12/22/19 09:00 Nasal Cannula 2.0 12/22/19 08:24 122/51 12/22/19 08:00 99 12/22/19 08:00 97.6 97 20 122/51 (74) 90 12/22/19 07:29 94 Nasal Cannula 2.0 28 12/22/19 07:29 95 20 97 Nasal Cannula 2.0 28 99 20 94 12/22/19 04:05 110 12/22/19 04:00 98.4 99 20 133/60 (84) 90 12/22/19 00:44 99.7 12/22/19 00:01 104 12/22/19 00:00 99.7 107 20 140/50 (80) 90 12/21/19 23:01 96 20 99 Nasal Cannula 2.0 28 12/21/19 22:51 95 20 96 Nasal Cannula 2.0 28 12/21/19 22:51 96 Nasal Cannula 2.0 28 12/21/19 21:44 Nasal Cannula 2.0 12/21/19 20:00 102 12/21/19 19:57 97.5 103 20 102/57 (72) 95 General Appearance: no apparent distress, alert Cardiovascular: normal rate Respiratory/Chest: crackles/rales - bawse left worse thatn right Abdomen: normal bowel sounds, non tender, soft Extremities: moderate edema Intake and Output 12/21/19 12/22/19 19:00 07:00 Intake Total 480 ml Balance 480 ml Intake Oral 480 ml # Voids 5 Laboratory Tests Test 12/22/19 06:15 White Blood Count 12.4 K/UL (4.8-10.8) H Red Blood Count 3.98 M/UL (4.20-5.40) L Hemoglobin 8.0 G/DL (12.0-16.0) L Hematocrit 28.9 % (37.0-47.0) L Mean Corpuscular Volume 73 FL (80-99) L Mean Corpuscular Hemoglobin 20.2 PG (27.0-31.0) L Mean Corpuscular Hemoglobin Concent 27.8 G/DL (32.0-36.0) L Red Cell Distribution Width 20.5 % (11.6-14.8) H Platelet Count 401 K/UL (150-450) Mean Platelet Volume 7.0 FL (6.5-10.1) Neutrophils (%) (Auto) 72.6 % (45.0-75.0) Lymphocytes (%) (Auto) 13.6 % (20.0-45.0) L Monocytes (%) (Auto) 8.4 % (1.0-10.0) Eosinophils (%) (Auto) 4.4 % (0.0-3.0) H Basophils (%) (Auto) 1.0 % (0.0-2.0) Sodium Level 137 MMOL/L (136-145) Potassium Level 3.5 MMOL/L (3.5-5.1) Chloride Level 101 MMOL/L (98-107) Carbon Dioxide Level 27 MMOL/L (21-32) Anion Gap 10 mmol/L (5-15) Blood Urea Nitrogen 23 mg/dL (7-18) H Creatinine 1.3 MG/DL (0.55-1.30) Estimat Glomerular Filtration Rate 48.4 mL/min (>60) Glucose Level 162 MG/DL (74-106) H Calcium Level 8.8 MG/DL (8.5-10.1) Pro-B-Type Natriuretic Peptide 1463 pg/mL (0-125) H Panfilo Mahan MD Dec 22, 2019 18:51
[2019-12-22 20:00] VITALS: BP 140/65
[2019-12-22] MEDS ORDERED: Docusate 100mg cap ORAL PRN (20:00)
[2019-12-23] VITALS: BP 139/51
[2019-12-23] MEDS: Morphine Sulfate 2mg/ml Inj(IV/IM USE ONLY) IVP PRN ×4 (00:04→22:23)
[2019-12-23 04:00] VITALS: BP 131/45
[2019-12-23] MEDS: NovoLOG Insulin Flexpen SUBQ SCH ×4 (05:59→20:54)
[2019-12-23 06:46] LABS: BASOPHILS % (AUTO) 1.1 % (0.0-2.0); EOSINOPHILS % (AUTO) 4.1 % (0.0-3.0); HEMATOCRIT 28.7 % (37.0-47.0); LYMPHOCYTES % (AUTO) 12.8 % (20.0-45.0); MEAN CORPUSCULAR VOLUME 73 FL (80-99); MONOCYTES % (AUTO) 7.3 % (1.0-10.0); NEUTROPHILS % (AUTO) 74.6 % (45.0-75.0); PLATELET COUNT 365 K/UL (150-450); RED BLOOD COUNT 3.93 M/UL (4.20-5.40); RED CELL DISTRIBUTION WIDTH 20.5 % (11.6-14.8); WHITE BLOOD COUNT 12.4 K/UL (4.8-10.8)
[2019-12-23 07:07] LABS: INR 1.1 (0.9-1.1)
[2019-12-23 07:47] LABS: IRON 21 ug/dL (50-175); TOTAL IRON BINDING CAPACITY 385 ug/dL (250-450)
[2019-12-23 07:48] LABS: % IRON SATURATION 5 % (15-50)
[2019-12-23 07:56] LABS: ALANINE AMINOTRANSFERASE 26 U/L (12-78); ALBUMIN/GLOBULIN RATIO 0.6 (1.0-2.7); ALKALINE PHOSPHATASE 75 U/L (46-116); ANION GAP 9 mmol/L (5-15); ASPARTATE AMINO TRANSFERASE 23 U/L (15-37); BILIRUBIN,TOTAL 0.3 MG/DL (0.2-1.0); BLOOD UREA NITROGEN 21 mg/dL (7-18); CALCIUM 8.5 MG/DL (8.5-10.1); CARBON DIOXIDE 26 MMOL/L (21-32); CHLORIDE 100 MMOL/L (98-107); CREATININE 1.1 MG/DL (0.55-1.30); LACTATE DEHYDROGENASE 236 U/L (81-234); POTASSIUM 3.8 MMOL/L (3.5-5.1); SODIUM 135 MMOL/L (136-145)
[2019-12-23 08:00] VITALS: BP 107/54
[2019-12-23] MEDS: Lisinopril 10mg tab ORAL SCH (08:32)
[2019-12-23] MEDS: Heparin 5000 units/ml inj SUBQ SCH ×2 (08:32→20:53)
[2019-12-23] MEDS: Lotrisone Cream 15gm TOPIC SCH ×2 (08:52→17:27)
--- NOTE | 2019-12-23 11:16 | Pulmonology Progress Note ---
Subjective ROS Limited/Unobtainable: No Interval Events: diuresing well Constitutional: Reports: no symptoms HEENT: Repors: no symptoms Allergies: Coded Allergies: No Known Allergies (Unverified , 06/17/12) All Systems: reviewed and negative except above Objective Last 24 Hour Vital Signs Date Time Temp Pulse Resp B/P (MAP) Pulse Ox O2 Delivery O2 Flow Rate FiO2 12/23/19 09:00 Nasal Cannula 3.0 12/23/19 08:32 107/54 12/23/19 08:00 97.2 97 18 107/54 (71) 98 12/23/19 08:00 96 12/23/19 07:10 91 Nasal Cannula 2.0 28 12/23/19 04:00 97.7 94 18 131/45 (73) 87 94 12/23/19 04:00 94 12/23/19 00:00 101 12/23/19 00:00 97.7 103 16 139/51 (80) 88 103 12/22/19 22:32 94 20 100 Nasal Cannula 2.0 28 93 20 95 12/22/19 21:00 Nasal Cannula 3.0 12/22/19 20:20 93 Nasal Cannula 2.0 28 12/22/19 20:00 106 12/22/19 20:00 97.7 81 16 140/65 (90) 90 103 12/22/19 16:00 98 12/22/19 16:00 97.9 95 20 123/54 (77) 91 12/22/19 14:45 95 20 99 Nasal Cannula 2.0 28 90 20 96 12/22/19 12:00 97.9 98 20 123/51 (75) 88 12/22/19 12:00 94 Intake and Output 12/22/19 12/23/19 19:00 07:00 Intake Total 500 ml 250 ml Balance 500 ml 250 ml Intake Oral 500 ml 250 ml # Voids 5 1 General Appearance: WD/WN HEENT: normocephalic, atraumatic, mucous membranes moist Respiratory: chest wall non-tender, lungs clear Cardiovascular: normal peripheral pulses, normal rate Abdomen: normal bowel sounds Extremities: other - edema +2 BLE Skin: no rash 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, abnormal gait - with walker , alert, oriented x 3, responsive Musculoskeletal: normal muscle bulk Laboratory Tests 12/23/19 05:40: White Blood Count 12.4H, Red Blood Count 3.93L, Hemoglobin 8.0L, Hematocrit 28.7L, Mean Corpuscular Volume 73L, Mean Corpuscular Hemoglobin 20.3L, Mean Corpuscular Hemoglobin Concent 27.8L, Red Cell Distribution Width 20.5H, Platelet Count 365, Mean Platelet Volume 6.5, Neutrophils (%) (Auto) 74.6, Lymphocytes (%) (Auto) 12.8L, Monocytes (%) (Auto) 7.3, Eosinophils (%) (Auto) 4.1H, Basophils (%) (Auto) 1.1, Neutrophils % (Manual) [Pending], Lymphocytes % (Manual) [Pending], Platelet Estimate [Pending], Platelet Morphology [Pending], Erythrocyte Sedimentation Rate 115H, Reticulocyte Count 2.5H, Prothrombin Time 11.8H, Prothromb Time International Ratio 1.1, Activated Partial Thromboplast Time 25, Sodium Level 135L, Potassium Level 3.8, Chloride Level 100, Carbon Dioxide Level 26, Anion Gap 9, Blood Urea Nitrogen 21H, Creatinine 1.1, Estimat Glomerular Filtration Rate 58.8, Glucose Level 157H, Calcium Level 8.5, Iron Level 21L, Total Iron Binding Capacity 385, Percent Iron Saturation 5L, Unsaturated Iron Binding 364H, Total Bilirubin 0.3, Aspartate Amino Transf (AST/ SGOT) 23, Alanine Aminotransferase (ALT/SGPT) 26, Alkaline Phosphatase 75, Lactate Dehydrogenase 236H, Pro-B-Type Natriuretic Peptide 1588H, Total Protein 8.2, Albumin 3.0L, Globulin 5.2, Albumin/Globulin Ratio 0.6L, Carcinoembryonic Antigen [Pending], Vitamin B12 Level 378, Folate 12.3 Current Medications Medications (Trade) Dose Ordered Sig/Ana Maria Route PRN Reason Start Time Stop Time Status Last Admin Dose Admin Betamethasone/ Clotrimazole (Lotrisone) 1 applic TWICE A DAY TOPIC 12/19/19 18:00 12/29/19 17:59 12/23/19 08:52 Dextrose (Dextrose 50%) 25 ml Q30M PRN IV Hypoglycemia 12/17/19 23:45 03/16/20 23:44 Dextrose (Dextrose 50%) 25 ml Q30M PRN IV Hypoglycemia 12/18/19 20:00 03/17/20 19:59 Dextrose (Dextrose 50%) 50 ml Q30M PRN IV Hypoglycemia 12/17/19 23:45 03/16/20 23:44 Dextrose (Dextrose 50%) 50 ml Q30M PRN IV Hypoglycemia 12/18/19 20:00 03/17/20 19:59 Diphenhydramine HCl (Benadryl) 25 mg Q4H PRN IVP Itching 12/18/19 20:15 01/17/20 20:14 Docusate Sodium (Colace) 100 mg BIDPRN PRN ORAL Constipation 12/22/19 20:00 01/21/20 19:59 12/22/19 21:01 Furosemide (Lasix) 20 mg DAILY IV 12/23/19 09:00 01/22/20 08:59 12/23/19 08:31 Gabapentin (Neurontin) 300 mg BEDTIME ORAL 12/18/19 21:00 01/17/20 20:59 12/22/19 20:28 Heparin Sodium (Porcine) (Heparin 5000 units/ml) 5,000 units EVERY 12 HOURS SUBQ 12/18/19 09:00 02/01/20 08:59 12/23/19 08:32 Insulin Aspart (NovoLOG) BEFORE MEALS AND HS SUBQ 12/18/19 21:00 03/17/20 20:59 12/23/19 05:59 Lisinopril (ZestriL) 10 mg DAILY ORAL 12/19/19 09:00 01/18/20 08:59 12/23/19 08:32 Morphine Sulfate (Morphine Sulfate) 2 mg Q4H PRN IVP For Pain 12/18/19 20:15 12/25/19 20:14 12/23/19 08:53 Promethazine HCl/ Codeine (Phenergan with Codeine) 5 ml Q4H PRN ORAL For Cough 12/21/19 22:00 01/20/20 21:59 12/21/19 22:12 Assessment/Plan Problems: (1) CHF exacerbation (2) Anemia (3) COPD (chronic obstructive pulmonary disease) (4) Peripheral edema (5) Diabetic nephropathy (6) Obesity (BMI 30.0-34.9) (7) Diabetes mellitus (8) Chronic liver disease Assessment/Plan improving symptomatic treatment lasix IV, diuresing well, bun/ creatinine rising respiratory treatment titrate fio2 to sat of 92% optimize cardiac meds dvt prophylaxis strict intake and output. Monika Sarmiento MD Dec 23, 2019 11:16
[2019-12-23 12:00] VITALS: BP 110/50
[2019-12-23] MEDS: Docusate 100mg cap ORAL SCH ×2 (12:57→17:18)
[2019-12-23] MEDS: Lactulose 20gm/30ml UDC ORAL SCH ×2 (12:58→17:18)
--- NOTE | 2019-12-23 13:44 | Cardiology Progress Note ---
Assessment/Plan Assessment/Plan 1. Chronic obstructive pulmonary disease. 2. Pulmonary hypertension. 3. Aortic stenosis. 4. Essential hypertension. 5. Diabetes mellitus. 6. Obesity. 7. Chronic liver disease. 8. iron def anemia still with sig edema iv lasix on acei instead of norvasc watch bp stool ob will need med for more aggressive treatment of copd as out pt duplex neg for dvt ? Interstitial lung disease will d/w dr mauro my office echo doppler were nto adequate window for accurate estimation of sched to have echo at [facility] as out pt will swith po soon lasix 40 mg daily po Subjective Cardiovascular: Denies: chest pain, lightheadedness, palpitations Respiratory: Reports: cough - not new ; Denies: shortness of breath Gastrointestinal/Abdominal: Denies: abdominal pain Genitourinary: Denies: no symptoms Objective Last 24 Hour Vital Signs Date Time Temp Pulse Resp B/P (MAP) Pulse Ox O2 Delivery O2 Flow Rate FiO2 12/23/19 12:00 97.0 98 20 110/50 (70) 97 12/23/19 12:00 90 12/23/19 09:00 Nasal Cannula 3.0 12/23/19 08:32 107/54 12/23/19 08:00 97.2 97 18 107/54 (71) 98 12/23/19 08:00 96 12/23/19 07:10 91 Nasal Cannula 2.0 28 12/23/19 04:00 97.7 94 18 131/45 (73) 87 94 12/23/19 04:00 94 12/23/19 00:00 101 12/23/19 00:00 97.7 103 16 139/51 (80) 88 103 12/22/19 22:32 94 20 100 Nasal Cannula 2.0 28 93 20 95 12/22/19 21:00 Nasal Cannula 3.0 12/22/19 20:20 93 Nasal Cannula 2.0 28 12/22/19 20:00 106 12/22/19 20:00 97.7 81 16 140/65 (90) 90 103 12/22/19 16:00 98 12/22/19 16:00 97.9 95 20 123/54 (77) 91 12/22/19 14:45 95 20 99 Nasal Cannula 2.0 28 90 20 96 General Appearance: no apparent distress, alert Neck: no JVD Cardiovascular: normal rate, systolic murmur Respiratory/Chest: crackles/rales Abdomen: normal bowel sounds, non tender, soft Extremities: moderate edema Intake and Output 12/22/19 12/23/19 19:00 07:00 Intake Total 500 ml 250 ml Balance 500 ml 250 ml Intake Oral 500 ml 250 ml # Voids 5 1 Laboratory Tests Test 12/23/19 05:40 White Blood Count 12.4 K/UL (4.8-10.8) H Red Blood Count 3.93 M/UL (4.20-5.40) L Hemoglobin 8.0 G/DL (12.0-16.0) L Hematocrit 28.7 % (37.0-47.0) L Mean Corpuscular Volume 73 FL (80-99) L Mean Corpuscular Hemoglobin 20.3 PG (27.0-31.0) L Mean Corpuscular Hemoglobin Concent 27.8 G/DL (32.0-36.0) L Red Cell Distribution Width 20.5 % (11.6-14.8) H Platelet Count 365 K/UL (150-450) Mean Platelet Volume 6.5 FL (6.5-10.1) Neutrophils (%) (Auto) 74.6 % (45.0-75.0) Lymphocytes (%) (Auto) 12.8 % (20.0-45.0) L Monocytes (%) (Auto) 7.3 % (1.0-10.0) Eosinophils (%) (Auto) 4.1 % (0.0-3.0) H Basophils (%) (Auto) 1.1 % (0.0-2.0) Differential Total Cells Counted 100 Neutrophils % (Manual) 79 % (45-75) H Lymphocytes % (Manual) 11 % (20-45) L Monocytes % (Manual) 4 % (1-10) Eosinophils % (Manual) 6 % (0-3) H Basophils % (Manual) 0 % (0-2) Band Neutrophils 0 % (0-8) Platelet Estimate Adequate Platelet Morphology Normal Hypochromasia 2+ Anisocytosis 2+ Microcytosis 2+ Erythrocyte Sedimentation Rate 115 MM/HR (0-30) H Reticulocyte Count 2.5 % (0.5-2.0) H Prothrombin Time 11.8 SEC (9.30-11.50) H Prothromb Time International Ratio 1.1 (0.9-1.1) Activated Partial Thromboplast Time 25 SEC (23-33) Sodium Level 135 MMOL/L (136-145) L Potassium Level 3.8 MMOL/L (3.5-5.1) Chloride Level 100 MMOL/L (98-107) Carbon Dioxide Level 26 MMOL/L (21-32) Anion Gap 9 mmol/L (5-15) Blood Urea Nitrogen 21 mg/dL (7-18) H Creatinine 1.1 MG/DL (0.55-1.30) Estimat Glomerular Filtration Rate 58.8 mL/min (>60) Glucose Level 157 MG/DL (74-106) H Calcium Level 8.5 MG/DL (8.5-10.1) Iron Level 21 ug/dL (50-175) L Total Iron Binding Capacity 385 ug/dL (250-450) Percent Iron Saturation 5 % (15-50) L Unsaturated Iron Binding 364 ug/dL (112-346) H Total Bilirubin 0.3 MG/DL (0.2-1.0) Aspartate Amino Transf (AST/SGOT) 23 U/L (15-37) Alanine Aminotransferase (ALT/SGPT) 26 U/L (12-78) Alkaline Phosphatase 75 U/L (46-116) Lactate Dehydrogenase 236 U/L (81-234) H Pro-B-Type Natriuretic Peptide 1588 pg/mL (0-125) H Total Protein 8.2 G/DL (6.4-8.2) Albumin 3.0 G/DL (3.4-5.0) L Globulin 5.2 g/dL Albumin/Globulin Ratio 0.6 (1.0-2.7) L Carcinoembryonic Antigen Pending Vitamin B12 Level 378 PG/ML (193-986) Folate 12.3 NG/ML (8.6-58.9) Panfilo Mahan MD Dec 23, 2019 13:44
--- NOTE | 2019-12-23 13:48 | General Progress Note ---
Assessment/Plan Status: unchanged Assessment/Plan: Covering for Dr. Siddiqi Problem List: (1) Peripheral edema ICD Codes: R60.9 - Edema, unspecified SNOMED: 899104090 (2) Anemia ICD Codes: D64.9 - Anemia, unspecified SNOMED: 957534962 (3) Diabetes mellitus ICD Codes: E11.9 - Type 2 diabetes mellitus without complications SNOMED: 48646488 (4) COPD (chronic obstructive pulmonary disease) ICD Codes: J44.9 - Chronic obstructive pulmonary disease, unspecified SNOMED: 38316779 (5) Obesity (BMI 30.0-34.9) ICD Codes: E66.9 - Obesity, unspecified SNOMED: 064922493944558 (6) CHF exacerbation ICD Codes: I50.9 - Heart failure, unspecified SNOMED: 033783255, [id number] Qualifiers: Qualified Codes: I50.9 - Heart failure, unspecified Status: unchanged Assessment/Plan: o2 pulm ts diuese pt diet cbc bmp am aru eval prn Subjective Constitutional: Denies: no symptoms, chills, diaphoresis, fever, malaise, weakness, other HEENT: Denies: no symptoms, eye pain, blurred vision, tearing, double vision, ear pain, ear discharge, nose pain, nose congestion, throat pain, throat swelling, mouth pain, mouth swelling, other Cardiovascular: Denies: no symptoms, chest pain, edema, irregular heart rate, lightheadedness, palpitations, syncope, other Respiratory: Denies: no symptoms, cough, orthopnea, shortness of breath, SOB with excertion, SOB at rest, sputum, stridor, wheezing, other Gastrointestinal/Abdominal: Denies: no symptoms, abdomen distended, abdominal pain, black stools, tarry stools, blood in stool, constipated, diarrhea, difficulty swallowing, nausea, poor appetite, poor fluid intake, rectal bleeding , vomiting, other Genitourinary: Denies: no symptoms, burning, discharge, frequency, flank pain, hematuria, incontinence, pain, urgency, other Neurologic/Psychiatric: Denies: no symptoms, anxiety, depressed, emotional problems, headache, numbness, paresthesia, pre-existing deficit, seizure, tingling, tremors, weakness, other Endocrine: Denies: no symptoms, excessive sweating, flushing, intolerance to cold, intolerance to heat, increased hunger, increased thirst, increased urine, unexplained weight gain, unexplained weight loss, other Hematologic/Lymphatic: Denies: no symptoms, anemia, easy bleeding, easy bruising, other Allergies: Coded Allergies: No Known Allergies (Unverified , 06/17/12) Subjective 12/22 requiring diuresis before d/c and bm Objective Last 24 Hour Vital Signs Date Time Temp Pulse Resp B/P (MAP) Pulse Ox O2 Delivery O2 Flow Rate FiO2 12/23/19 12:00 97.0 98 20 110/50 (70) 97 12/23/19 12:00 90 12/23/19 09:00 Nasal Cannula 3.0 12/23/19 08:32 107/54 12/23/19 08:00 97.2 97 18 107/54 (71) 98 12/23/19 08:00 96 12/23/19 07:10 91 Nasal Cannula 2.0 28 12/23/19 04:00 97.7 94 18 131/45 (73) 87 94 12/23/19 04:00 94 12/23/19 00:00 101 12/23/19 00:00 97.7 103 16 139/51 (80) 88 103 12/22/19 22:32 94 20 100 Nasal Cannula 2.0 28 93 20 95 12/22/19 21:00 Nasal Cannula 3.0 12/22/19 20:20 93 Nasal Cannula 2.0 28 12/22/19 20:00 106 12/22/19 20:00 97.7 81 16 140/65 (90) 90 103 12/22/19 16:00 98 12/22/19 16:00 97.9 95 20 123/54 (77) 91 12/22/19 14:45 95 20 99 Nasal Cannula 2.0 28 90 20 96 Intake and Output 12/22/19 12/23/19 19:00 07:00 Intake Total 500 ml 250 ml Balance 500 ml 250 ml Intake Oral 500 ml 250 ml # Voids 5 1 Laboratory Tests 12/23/19 05:40: White Blood Count 12.4H, Red Blood Count 3.93L, Hemoglobin 8.0L, Hematocrit 28.7L, Mean Corpuscular Volume 73L, Mean Corpuscular Hemoglobin 20.3L, Mean Corpuscular Hemoglobin Concent 27.8L, Red Cell Distribution Width 20.5H, Platelet Count 365, Mean Platelet Volume 6.5, Neutrophils (%) (Auto) 74.6, Lymphocytes (%) (Auto) 12.8L, Monocytes (%) (Auto) 7.3, Eosinophils (%) (Auto) 4.1H, Basophils (%) (Auto) 1.1, Differential Total Cells Counted 100, Neutrophils % (Manual) 79H, Lymphocytes % (Manual) 11L, Monocytes % (Manual) 4, Eosinophils % (Manual) 6H, Basophils % (Manual) 0, Band Neutrophils 0, Platelet Estimate Adequate, Platelet Morphology Normal, Hypochromasia 2+, Anisocytosis 2+ , Microcytosis 2+, Erythrocyte Sedimentation Rate 115H, Reticulocyte Count 2.5H , Prothrombin Time 11.8H, Prothromb Time International Ratio 1.1, Activated Partial Thromboplast Time 25, Sodium Level 135L, Potassium Level 3.8, Chloride Level 100, Carbon Dioxide Level 26, Anion Gap 9, Blood Urea Nitrogen 21H, Creatinine 1.1, Estimat Glomerular Filtration Rate 58.8, Glucose Level 157H, Calcium Level 8.5, Iron Level 21L, Total Iron Binding Capacity 385, Percent Iron Saturation 5L, Unsaturated Iron Binding 364H, Total Bilirubin 0.3, Aspartate Amino Transf (AST/SGOT) 23, Alanine Aminotransferase (ALT/SGPT) 26, Alkaline Phosphatase 75, Lactate Dehydrogenase 236H, Pro-B-Type Natriuretic Peptide 1588H, Total Protein 8.2, Albumin 3.0L, Globulin 5.2, Albumin/Globulin Ratio 0.6L, Carcinoembryonic Antigen [Pending], Vitamin B12 Level 378, Folate 12.3 Height (Feet): 5 Height (Inches): 2.00 Weight (Pounds): 192 Objective Physical Exam: Vitals: reviewed General: NAD HEENT: nc, at Neck: supple Chest: congested+ Cardiovascular: RRR, no s3, s4 Abdomen: soft, nontender, nd Extremities 1-2+ edema lower ext Neuro: confused in am Chidi Yanez MD Dec 23, 2019 13:48
[2019-12-23 16:00] VITALS: BP 135/62
[2019-12-23 20:00] VITALS: BP 150/57
[2019-12-23] MEDS: Tamsulosin 0.4mg cap ORAL SCH (20:51)
[2019-12-23] MEDS ORDERED: Iron Sucrose 200 MG in NS 110 ML IV ONE (21:00)
[2019-12-24] VITALS: BP 124/77
[2019-12-24] MEDS: Morphine Sulfate 2mg/ml Inj(IV/IM USE ONLY) IVP PRN ×4 (03:24→17:17)
[2019-12-24 04:00] VITALS: BP 138/63
[2019-12-24] MEDS: NovoLOG Insulin Flexpen SUBQ SCH ×4 (06:22→20:52)
[2019-12-24 08:00] VITALS: BP 107/92
[2019-12-24] MEDS: Lisinopril 10mg tab ORAL SCH (08:20)
[2019-12-24] MEDS: Lotrisone Cream 15gm TOPIC SCH ×2 (08:21→17:15)
[2019-12-24] MEDS: Heparin 5000 units/ml inj SUBQ SCH ×2 (08:26→20:07)
[2019-12-24] MEDS: Lactulose 20gm/30ml UDC ORAL SCH ×3 (08:27→17:14)
[2019-12-24] MEDS: Docusate 100mg cap ORAL SCH ×3 (08:28→17:14)
[2019-12-24 12:00] VITALS: BP 122/51
--- NOTE | 2019-12-24 12:25 | Pulmonology Progress Note ---
Subjective ROS Limited/Unobtainable: No Interval Events: diuresing well, desating easily after PT Constitutional: Reports: no symptoms HEENT: Repors: no symptoms Allergies: Coded Allergies: No Known Allergies (Unverified , 06/17/12) All Systems: reviewed and negative except above Objective Last 24 Hour Vital Signs Date Time Temp Pulse Resp B/P (MAP) Pulse Ox O2 Delivery O2 Flow Rate FiO2 12/24/19 12:00 97.7 94 19 122/51 (74) 92 12/24/19 12:00 97 12/24/19 09:00 Nasal Cannula 3.0 12/24/19 08:20 107/92 12/24/19 08:00 94 12/24/19 08:00 96.5 94 20 107/92 (97) 96 12/24/19 04:02 96 12/24/19 04:00 97.9 96 20 138/63 (88) 89 12/24/19 03:49 Nasal Cannula 3.0 12/24/19 00:00 98.1 103 20 124/77 (93) 92 12/24/19 00:00 100 12/23/19 21:00 Nasal Cannula 3.0 12/23/19 20:00 102 12/23/19 20:00 97.5 99 20 150/57 (88) 94 12/23/19 19:30 88 18 93 Nasal Cannula 3.0 32 12/23/19 18:52 92 Nasal Cannula 3.0 32 12/23/19 16:00 96.4 94 18 135/62 (86) 89 12/23/19 16:00 91 Intake and Output 12/23/19 12/24/19 19:00 07:00 Intake Total 650 ml 240 ml Balance 650 ml 240 ml Intake Oral 400 ml 120 ml IV Total 120 ml Blood Product 250 ml # Voids 4 1 # Bowel Movements 2 General Appearance: WD/WN HEENT: normocephalic, atraumatic, mucous membranes moist Respiratory: chest wall non-tender, lungs clear Cardiovascular: normal peripheral pulses, normal rate Abdomen: normal bowel sounds Extremities: other - edema +2 BLE Skin: no rash 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, abnormal gait - with walker , alert, oriented x 3, responsive Musculoskeletal: normal muscle bulk Current Medications Medications (Trade) Dose Ordered Sig/Ana Maria Route PRN Reason Start Time Stop Time Status Last Admin Dose Admin Betamethasone/ Clotrimazole (Lotrisone) 1 applic TWICE A DAY TOPIC 12/19/19 18:00 12/29/19 17:59 12/24/19 08:21 Dextrose (Dextrose 50%) 25 ml Q30M PRN IV Hypoglycemia 12/17/19 23:45 03/16/20 23:44 Dextrose (Dextrose 50%) 25 ml Q30M PRN IV Hypoglycemia 12/18/19 20:00 03/17/20 19:59 Dextrose (Dextrose 50%) 50 ml Q30M PRN IV Hypoglycemia 12/17/19 23:45 03/16/20 23:44 Dextrose (Dextrose 50%) 50 ml Q30M PRN IV Hypoglycemia 12/18/19 20:00 03/17/20 19:59 Diphenhydramine HCl (Benadryl) 25 mg Q4H PRN IVP Itching 12/18/19 20:15 01/17/20 20:14 Docusate Sodium (Colace) 100 mg BIDPRN PRN ORAL Constipation 12/22/19 20:00 01/21/20 19:59 12/22/19 21:01 Docusate Sodium (Colace) 100 mg THREE TIMES A DAY ORAL 12/23/19 13:00 01/22/20 12:59 12/24/19 12:17 Furosemide (Lasix) 20 mg DAILY IV 12/23/19 09:00 01/22/20 08:59 12/24/19 08:20 Gabapentin (Neurontin) 300 mg BEDTIME ORAL 12/18/19 21:00 01/17/20 20:59 12/23/19 20:51 Heparin Sodium (Porcine) (Heparin 5000 units/ml) 5,000 units EVERY 12 HOURS SUBQ 12/18/19 09:00 02/01/20 08:59 12/24/19 08:26 Insulin Aspart (NovoLOG) BEFORE MEALS AND HS SUBQ 12/18/19 21:00 03/17/20 20:59 12/24/19 12:06 Lactulose (Cephulac) 30 gm THREE TIMES A DAY ORAL 12/23/19 13:00 01/22/20 12:59 12/24/19 12:18 Lisinopril (ZestriL) 10 mg DAILY ORAL 12/19/19 09:00 01/18/20 08:59 12/24/19 08:20 Mineral Oil (Fleet's Mineral Oil Enema) 133 ml EVERY OTHER DAY RECTAL 12/25/19 09:00 01/24/20 08:59 Morphine Sulfate (Morphine Sulfate) 2 mg Q4H PRN IVP For Pain 12/18/19 20:15 12/25/19 20:14 12/24/19 12:18 Promethazine HCl/ Codeine (Phenergan with Codeine) 5 ml Q4H PRN ORAL For Cough 12/21/19 22:00 01/20/20 21:59 12/21/19 22:12 Tamsulosin HCl (Flomax) 0.4 mg BEDTIME ORAL 12/23/19 21:00 01/22/20 20:59 12/23/19 20:51 Assessment/Plan Problems: (1) Anemia (2) CHF exacerbation (3) COPD (chronic obstructive pulmonary disease) (4) Peripheral edema (5) Diabetic nephropathy (6) Obesity (BMI 30.0-34.9) (7) Diabetes mellitus (8) Chronic liver disease Assessment/Plan persistent leukocytosis ID evaluation? OB pending s/p one unit of PRBC on 12/22, h/h unchanged. received one unit of PRBC symptomatic treatment lasix IV, diuresing well, bun/ creatinine stable respiratory treatment titrate fio2 to sat of 92% optimize cardiac meds dvt prophylaxis strict intake and output. Monika Sarmiento MD Dec 24, 2019 12:25
[2019-12-24 16:00] VITALS: BP 131/46
--- NOTE | 2019-12-24 16:11 | General Progress Note ---
Assessment/Plan Problem List: (1) Peripheral edema ICD Codes: R60.9 - Edema, unspecified SNOMED: 171029967 (2) Anemia ICD Codes: D64.9 - Anemia, unspecified SNOMED: 025405565 (3) Diabetes mellitus ICD Codes: E11.9 - Type 2 diabetes mellitus without complications SNOMED: 71463498 (4) COPD (chronic obstructive pulmonary disease) ICD Codes: J44.9 - Chronic obstructive pulmonary disease, unspecified SNOMED: 06969006 (5) Obesity (BMI 30.0-34.9) ICD Codes: E66.9 - Obesity, unspecified SNOMED: 263794055868126 (6) CHF exacerbation ICD Codes: I50.9 - Heart failure, unspecified SNOMED: 855991249, [id number] Qualifiers: Qualified Codes: I50.9 - Heart failure, unspecified Status: unchanged Assessment/Plan: o2 pulm tx diurese pt diet cbc bmp am Subjective Allergies: Coded Allergies: No Known Allergies (Unverified , 06/17/12) All Systems: reviewed and negative except above Subjective sleepy calm Objective Last 24 Hour Vital Signs Date Time Temp Pulse Resp B/P (MAP) Pulse Ox O2 Delivery O2 Flow Rate FiO2 12/24/19 16:00 96.4 81 18 131/46 (74) 96 12/24/19 12:00 97.7 94 19 122/51 (74) 92 12/24/19 12:00 97 12/24/19 09:00 Nasal Cannula 3.0 12/24/19 08:20 107/92 12/24/19 08:00 94 12/24/19 08:00 96.5 94 20 107/92 (97) 96 12/24/19 04:02 96 12/24/19 04:00 97.9 96 20 138/63 (88) 89 12/24/19 03:49 Nasal Cannula 3.0 12/24/19 00:00 98.1 103 20 124/77 (93) 92 12/24/19 00:00 100 12/23/19 21:00 Nasal Cannula 3.0 12/23/19 20:00 102 12/23/19 20:00 97.5 99 20 150/57 (88) 94 12/23/19 19:30 88 18 93 Nasal Cannula 3.0 32 12/23/19 18:52 92 Nasal Cannula 3.0 32 Intake and Output 12/23/19 12/24/19 19:00 07:00 Intake Total 650 ml 240 ml Balance 650 ml 240 ml Intake Oral 400 ml 120 ml IV Total 120 ml Blood Product 250 ml # Voids 4 1 # Bowel Movements 2 Height (Feet): 5 Height (Inches): 2.00 Weight (Pounds): 200 General Appearance: lethargic EENT: normal ENT inspection Neck: normal alignment Cardiovascular: normal peripheral pulses, normal rate, regular rhythm Respiratory/Chest: chest wall non-tender, lungs clear, normal breath sounds Abdomen: normal bowel sounds, non tender, soft Extremities: normal inspection Edema: 1+ Arm (L), 1+ Arm (R), 1+ Leg (L), 1+ Leg (R), 1+ Pedal (L), 1+ Pedal ( R), 1+ Generalized Edema: trace edema Neurologic: motor weakness Skin: normal pigmentation, warm/dry Jai Siddiqi DO Dec 24, 2019 16:11
--- NOTE | 2019-12-24 19:31 | Cardiology Progress Note ---
Assessment/Plan Assessment/Plan 1. Chronic obstructive pulmonary disease. 2. Pulmonary hypertension. 3. Aortic stenosis. 4. Essential hypertension. 5. Diabetes mellitus. 6. Obesity. 7. Chronic liver disease. 8. iron def anemia still with sig edema iv lasix on acei instead of norvasc watch bp stool ob will need med for more aggressive treatment of copd as out pt duplex neg for dvt ? Interstitial lung disease d/w dr mauro he will consider ct of lungs my office echo doppler were nto adequate window for accurate estimation of sched to have echo at [facility] as out pt when readi to go will switch po lasix 40 mg daily po keep off norvac lisinopril 10mg daily Subjective Cardiovascular: Denies: chest pain, lightheadedness Respiratory: Reports: cough; Denies: shortness of breath Gastrointestinal/Abdominal: Denies: abdominal pain Genitourinary: Denies: burning Objective Last 24 Hour Vital Signs Date Time Temp Pulse Resp B/P (MAP) Pulse Ox O2 Delivery O2 Flow Rate FiO2 12/24/19 16:00 96.4 81 18 131/46 (74) 96 12/24/19 16:00 91 12/24/19 12:00 97.7 94 19 122/51 (74) 92 12/24/19 12:00 97 12/24/19 09:00 Nasal Cannula 3.0 12/24/19 08:20 107/92 12/24/19 08:00 94 12/24/19 08:00 96.5 94 20 107/92 (97) 96 12/24/19 04:02 96 12/24/19 04:00 97.9 96 20 138/63 (88) 89 12/24/19 03:49 Nasal Cannula 3.0 12/24/19 00:00 98.1 103 20 124/77 (93) 92 12/24/19 00:00 100 12/23/19 21:00 Nasal Cannula 3.0 12/23/19 20:00 102 12/23/19 20:00 97.5 99 20 150/57 (88) 94 12/23/19 19:30 88 18 93 Nasal Cannula 3.0 32 General Appearance: no apparent distress, obese Neck: supple Cardiovascular: regular rhythm, systolic murmur Respiratory/Chest: rhonchi - left Abdomen: normal bowel sounds, non tender, soft Extremities: moderate edema Intake and Output 12/23/19 12/24/19 19:00 07:00 Intake Total 650 ml 240 ml Balance 650 ml 240 ml Intake Oral 400 ml 120 ml IV Total 120 ml Blood Product 250 ml # Voids 4 1 # Bowel Movements 2 Panfilo Mahan MD Dec 24, 2019 19:31
[2019-12-24 20:00] VITALS: BP 103/41
[2019-12-24] MEDS: Tamsulosin 0.4mg cap ORAL SCH (20:06)
[2019-12-25] VITALS: BP 134/56
[2019-12-25 04:00] VITALS: BP 117/60
[2019-12-25] MEDS: Morphine Sulfate 2mg/ml Inj(IV/IM USE ONLY) IVP PRN (04:02)
[2019-12-25] MEDS: NovoLOG Insulin Flexpen SUBQ SCH ×4 (06:03→20:59)
[2019-12-25 06:32] LABS: BASOPHILS % (AUTO) 1.3 % (0.0-2.0); HEMATOCRIT 31.7 % (37.0-47.0); HEMOGLOBIN 9.1 G/DL (12.0-16.0); LYMPHOCYTES % (AUTO) 13.2 % (20.0-45.0); MEAN CORPUSCULAR VOLUME 75 FL (80-99); MONOCYTES % (AUTO) 6.1 % (1.0-10.0); NEUTROPHILS % (AUTO) 77.3 % (45.0-75.0); PLATELET COUNT 336 K/UL (150-450); RED BLOOD COUNT 4.22 M/UL (4.20-5.40); RED CELL DISTRIBUTION WIDTH 22.1 % (11.6-14.8); WHITE BLOOD COUNT 15.4 K/UL (4.8-10.8)
[2019-12-25 07:03] LABS: ALANINE AMINOTRANSFERASE 31 U/L (12-78); ALBUMIN 2.8 G/DL (3.4-5.0); ALBUMIN/GLOBULIN RATIO 0.5 (1.0-2.7); ALKALINE PHOSPHATASE 84 U/L (46-116); ANION GAP 11 mmol/L (5-15); ASPARTATE AMINO TRANSFERASE 34 U/L (15-37); BILIRUBIN,TOTAL 0.4 MG/DL (0.2-1.0); BLOOD UREA NITROGEN 20 mg/dL (7-18); CALCIUM 8.6 MG/DL (8.5-10.1); CARBON DIOXIDE 23 MMOL/L (21-32); CHLORIDE 100 MMOL/L (98-107); CREATININE 1.4 MG/DL (0.55-1.30); LACTATE DEHYDROGENASE 229 U/L (81-234); PHOSPHORUS 3.6 MG/DL (2.5-4.9); SODIUM 134 MMOL/L (136-145)
[2019-12-25 08:00] VITALS: BP 121/61
[2019-12-25] MEDS ORDERED: Fleet's Mineral Oil Enema RECTAL SCH (09:00)
[2019-12-25] MEDS: Heparin 5000 units/ml inj SUBQ SCH ×2 (09:27→21:00)
[2019-12-25] MEDS: Docusate 100mg cap ORAL SCH ×3 (09:28→17:08)
[2019-12-25] MEDS: Lisinopril 10mg tab ORAL SCH (09:28)
[2019-12-25] MEDS: Lactulose 20gm/30ml UDC ORAL SCH ×3 (09:28→17:08)
[2019-12-25] MEDS: Lotrisone Cream 15gm TOPIC SCH ×2 (09:33→17:08)
[2019-12-25 12:00] VITALS: BP 158/73
--- NOTE | 2019-12-25 12:34 | Pulmonology Progress Note ---
Subjective ROS Limited/Unobtainable: No Interval Events: diuresing well, desating easily after PT Constitutional: Reports: no symptoms HEENT: Repors: no symptoms Allergies: Coded Allergies: No Known Allergies (Unverified , 06/17/12) All Systems: reviewed and negative except above Objective Last 24 Hour Vital Signs Date Time Temp Pulse Resp B/P (MAP) Pulse Ox O2 Delivery O2 Flow Rate FiO2 12/25/19 09:28 121/61 12/25/19 09:00 Nasal Cannula 3.0 12/25/19 08:00 96.4 90 22 121/61 (81) 88 12/25/19 08:00 95 12/25/19 04:40 98.1 12/25/19 04:00 96 12/25/19 04:00 97.8 96 19 117/60 (79) 96 12/25/19 00:00 98 12/25/19 00:00 98.1 84 19 134/56 (82) 98 12/24/19 21:58 Nasal Cannula 3.0 12/24/19 20:00 101 12/24/19 20:00 98.6 61 20 103/41 (61) 96 12/24/19 16:00 96.4 81 18 131/46 (74) 96 12/24/19 16:00 91 Intake and Output 12/24/19 12/25/19 19:00 07:00 Intake Total 140 ml Output Total 1200 ml Balance -1060 ml Intake Oral 140 ml Output Urine Total 1200 ml # Voids 3 General Appearance: WD/WN HEENT: normocephalic, atraumatic, mucous membranes moist Respiratory: chest wall non-tender, lungs clear Cardiovascular: normal peripheral pulses, normal rate Abdomen: normal bowel sounds Extremities: other - edema +2 BLE Skin: no rash 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, abnormal gait - with walker , alert, oriented x 3, responsive Musculoskeletal: normal muscle bulk Laboratory Tests 12/25/19 05:53: White Blood Count 15.4H, Red Blood Count 4.22, Hemoglobin 9.1L, Hematocrit 31.7L , Mean Corpuscular Volume 75L, Mean Corpuscular Hemoglobin 21.7L, Mean Corpuscular Hemoglobin Concent 28.8L, Red Cell Distribution Width 22.1H, Platelet Count 336, Mean Platelet Volume 6.9, Neutrophils (%) (Auto) 77.3H, Lymphocytes (%) (Auto) 13.2L, Monocytes (%) (Auto) 6.1, Eosinophils (%) (Auto) 2.0, Basophils (%) (Auto) 1.3, Erythrocyte Sedimentation Rate 36H, Reticulocyte Count 1.8, Sodium Level 134L, Potassium Level 4.0, Chloride Level 100, Carbon Dioxide Level 23, Anion Gap 11, Blood Urea Nitrogen 20H, Creatinine 1.4H, Estimat Glomerular Filtration Rate 44.5, Glucose Level 158H, Calcium Level 8.6, Phosphorus Level 3.6, Magnesium Level 2.0, Total Bilirubin 0.4, Aspartate Amino Transf (AST/SGOT) 34, Alanine Aminotransferase (ALT/SGPT) 31, Alkaline Phosphatase 84, Lactate Dehydrogenase 229, Total Protein 8.4H, Albumin 2.8L, Globulin 5.6, Albumin/Globulin Ratio 0.5L Current Medications Medications (Trade) Dose Ordered Sig/Ana Maria Route PRN Reason Start Time Stop Time Status Last Admin Dose Admin Al Hydroxide/Mg Hydroxide (Mylanta) 30 ml Q6H PRN ORAL To Patient Comfort 12/25/19 07:00 01/24/20 06:59 Betamethasone/ Clotrimazole (Lotrisone) 1 applic TWICE A DAY TOPIC 12/19/19 18:00 12/29/19 17:59 12/25/19 09:33 Dextrose (Dextrose 50%) 25 ml Q30M PRN IV Hypoglycemia 12/18/19 20:00 03/17/20 19:59 Dextrose (Dextrose 50%) 50 ml Q30M PRN IV Hypoglycemia 12/18/19 20:00 03/17/20 19:59 Diphenhydramine HCl (Benadryl) 25 mg Q4H PRN IVP Itching 12/18/19 20:15 01/17/20 20:14 12/24/19 20:06 Docusate Sodium (Colace) 100 mg BIDPRN PRN ORAL Constipation 12/22/19 20:00 01/21/20 19:59 12/22/19 21:01 Docusate Sodium (Colace) 100 mg THREE TIMES A DAY ORAL 12/23/19 13:00 01/22/20 12:59 12/25/19 09:28 Furosemide (Lasix) 20 mg DAILY IV 12/23/19 09:00 01/22/20 08:59 12/25/19 09:27 Gabapentin (Neurontin) 300 mg BEDTIME ORAL 12/18/19 21:00 01/17/20 20:59 12/24/19 20:06 Heparin Sodium (Porcine) (Heparin 5000 units/ml) 5,000 units EVERY 12 HOURS SUBQ 12/18/19 09:00 02/01/20 08:59 12/25/19 09:27 Insulin Aspart (NovoLOG) BEFORE MEALS AND HS SUBQ 12/18/19 21:00 03/17/20 20:59 12/25/19 06:03 Lactulose (Cephulac) 30 gm THREE TIMES A DAY ORAL 12/23/19 13:00 01/22/20 12:59 12/25/19 09:28 Lisinopril (ZestriL) 10 mg DAILY ORAL 12/19/19 09:00 01/18/20 08:59 12/25/19 09:28 Mineral Oil (Fleet's Mineral Oil Enema) 133 ml EVERY OTHER DAY RECTAL 12/25/19 09:00 01/24/20 08:59 12/25/19 09:28 Morphine Sulfate (Morphine Sulfate) 2 mg Q4H PRN IVP For Pain 12/18/19 20:15 12/25/19 20:14 12/25/19 04:02 Promethazine HCl/ Codeine (Phenergan with Codeine) 5 ml Q4H PRN ORAL For Cough 12/21/19 22:00 01/20/20 21:59 12/21/19 22:12 Tamsulosin HCl (Flomax) 0.4 mg BEDTIME ORAL 12/23/19 21:00 01/22/20 20:59 12/24/19 20:06 Assessment/Plan Problems: (1) Anemia (2) CHF exacerbation (3) COPD (chronic obstructive pulmonary disease) (4) Peripheral edema (5) Diabetic nephropathy (6) Obesity (BMI 30.0-34.9) (7) Diabetes mellitus (8) Chronic liver disease Assessment/Plan persistent leukocytosis, WBC is higher ID evaluation? OB pending still s/p one unit of PRBC on 12/22, h/h is higher today symptomatic treatment lasix IV, diuresing well, bun/ creatinine stable respiratory treatment titrate fio2 to sat of 92% optimize cardiac meds dvt prophylaxis strict intake and output. Monika Sarmiento MD Dec 25, 2019 12:34
--- NOTE | 2019-12-25 12:55 | Hematology/Onc Progress Note ---
Assessment/Plan Assessment/Plan --> Covered Dr. Siddiqi on 12/23 # Anemia of chronic disease due to underlying chronic medical issues, multifactorial v Gi bleed --> Anemia workup has been ordered, occult and ferritin --> No evidence of hemolysis is noted, peripheral smear has been reviewed. --> Hgb goal >7. Transfuse prn. 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 Greatly appreciate consultation. Subjective HEENT: Denies: no symptoms, eye pain, blurred vision, tearing, double vision, ear pain, ear discharge, nose pain, nose congestion, throat pain, throat swelling, mouth pain, mouth swelling, other Cardiovascular: Denies: no symptoms, chest pain, edema, irregular heart rate, lightheadedness, palpitations, syncope, other Gastrointestinal/Abdominal: Denies: no symptoms, abdomen distended, abdominal pain, black stools, tarry stools, blood in stool, constipated, diarrhea, difficulty swallowing, nausea, poor appetite, poor fluid intake, rectal bleeding , vomiting, other Neurologic/Psychiatric: Denies: no symptoms, anxiety, depressed, emotional problems, headache, numbness, paresthesia, pre-existing deficit, seizure, tingling, tremors, weakness, other Endocrine: Denies: no symptoms, excessive sweating, flushing, intolerance to cold, intolerance to heat, increased hunger, increased thirst, increased urine, unexplained weight gain, unexplained weight loss, other Hematologic/Lymphatic: Denies: no symptoms, anemia, easy bleeding, easy bruising, adenopathy, other Allergies: Coded Allergies: No Known Allergies (Unverified , 06/17/12) Subjective 12/22 requiring diuresis before d/c and bm 12/24 no bleeding reported, occult pending as is ferritin, sating on 4l nc Objective Objective Current Medications Medications (Trade) Dose Ordered Sig/Ana Maria Route PRN Reason Start Time Stop Time Status Last Admin Dose Admin Al Hydroxide/Mg Hydroxide (Mylanta) 30 ml Q6H PRN ORAL To Patient Comfort 12/25/19 07:00 01/24/20 06:59 Betamethasone/ Clotrimazole (Lotrisone) 1 applic TWICE A DAY TOPIC 12/19/19 18:00 12/29/19 17:59 12/25/19 09:33 Dextrose (Dextrose 50%) 25 ml Q30M PRN IV Hypoglycemia 12/18/19 20:00 03/17/20 19:59 Dextrose (Dextrose 50%) 50 ml Q30M PRN IV Hypoglycemia 12/18/19 20:00 03/17/20 19:59 Diphenhydramine HCl (Benadryl) 25 mg Q4H PRN IVP Itching 12/18/19 20:15 01/17/20 20:14 12/24/19 20:06 Docusate Sodium (Colace) 100 mg BIDPRN PRN ORAL Constipation 12/22/19 20:00 01/21/20 19:59 12/22/19 21:01 Docusate Sodium (Colace) 100 mg THREE TIMES A DAY ORAL 12/23/19 13:00 01/22/20 12:59 12/25/19 12:40 Furosemide (Lasix) 20 mg DAILY IV 12/23/19 09:00 01/22/20 08:59 12/25/19 09:27 Gabapentin (Neurontin) 300 mg BEDTIME ORAL 12/18/19 21:00 01/17/20 20:59 12/24/19 20:06 Heparin Sodium (Porcine) (Heparin 5000 units/ml) 5,000 units EVERY 12 HOURS SUBQ 12/18/19 09:00 02/01/20 08:59 12/25/19 09:27 Insulin Aspart (NovoLOG) BEFORE MEALS AND HS SUBQ 12/18/19 21:00 03/17/20 20:59 12/25/19 06:03 Lactulose (Cephulac) 30 gm THREE TIMES A DAY ORAL 12/23/19 13:00 01/22/20 12:59 12/25/19 09:28 Lisinopril (ZestriL) 10 mg DAILY ORAL 12/19/19 09:00 01/18/20 08:59 12/25/19 09:28 Mineral Oil (Fleet's Mineral Oil Enema) 133 ml EVERY OTHER DAY RECTAL 12/25/19 09:00 01/24/20 08:59 12/25/19 09:28 Morphine Sulfate (Morphine Sulfate) 2 mg Q4H PRN IVP For Pain 12/18/19 20:15 12/25/19 20:14 12/25/19 04:02 Promethazine HCl/ Codeine (Phenergan with Codeine) 5 ml Q4H PRN ORAL For Cough 12/21/19 22:00 01/20/20 21:59 12/21/19 22:12 Tamsulosin HCl (Flomax) 0.4 mg BEDTIME ORAL 12/23/19 21:00 01/22/20 20:59 12/24/19 20:06 Last 24 Hour Vital Signs Date Time Temp Pulse Resp B/P (MAP) Pulse Ox O2 Delivery O2 Flow Rate FiO2 12/25/19 12:00 96.8 80 20 158/73 (101) 88 12/25/19 09:28 121/61 12/25/19 09:00 Nasal Cannula 3.0 12/25/19 08:00 96.4 90 22 121/61 (81) 88 12/25/19 08:00 95 12/25/19 04:40 98.1 12/25/19 04:00 96 12/25/19 04:00 97.8 96 19 117/60 (79) 96 12/25/19 00:00 98 12/25/19 00:00 98.1 84 19 134/56 (82) 98 12/24/19 21:58 Nasal Cannula 3.0 12/24/19 20:00 101 12/24/19 20:00 98.6 61 20 103/41 (61) 96 12/24/19 16:00 96.4 81 18 131/46 (74) 96 12/24/19 16:00 91 12/24/19 12:00 97.7 94 19 122/51 (74) 92 12/24/19 12:00 97 12/24/19 09:00 Nasal Cannula 3.0 12/24/19 08:20 107/92 12/24/19 08:00 94 12/24/19 08:00 96.5 94 20 107/92 (97) 96 12/24/19 04:02 96 12/24/19 04:00 97.9 96 20 138/63 (88) 89 12/24/19 03:49 Nasal Cannula 3.0 12/24/19 00:00 98.1 103 20 124/77 (93) 92 12/24/19 00:00 100 12/23/19 21:00 Nasal Cannula 3.0 12/23/19 20:00 102 12/23/19 20:00 97.5 99 20 150/57 (88) 94 12/23/19 19:30 88 18 93 Nasal Cannula 3.0 32 12/23/19 18:52 92 Nasal Cannula 3.0 32 12/23/19 16:00 96.4 94 18 135/62 (86) 89 12/23/19 16:00 91 Intake and Output 12/24/19 12/25/19 19:00 07:00 Intake Total 140 ml Output Total 1200 ml Balance -1060 ml Intake Oral 140 ml Output Urine Total 1200 ml # Voids 3 Labs Test 12/23/19 05:40 12/25/19 05:53 White Blood Count 12.4 K/UL (4.8-10.8) 15.4 K/UL (4.8-10.8) Red Blood Count 3.93 M/UL (4.20-5.40) 4.22 M/UL (4.20-5.40) Hemoglobin 8.0 G/DL (12.0-16.0) 9.1 G/DL (12.0-16.0) Hematocrit 28.7 % (37.0-47.0) 31.7 % (37.0-47.0) Mean Corpuscular Volume 73 FL (80-99) 75 FL (80-99) Mean Corpuscular Hemoglobin 20.3 PG (27.0-31.0) 21.7 PG (27.0-31.0) Mean Corpuscular Hemoglobin Concent 27.8 G/DL (32.0-36.0) 28.8 G/DL (32.0-36.0) Red Cell Distribution Width 20.5 % (11.6-14.8) 22.1 % (11.6-14.8) Platelet Count 365 K/UL (150-450) 336 K/UL (150-450) Mean Platelet Volume 6.5 FL (6.5-10.1) 6.9 FL (6.5-10.1) Neutrophils (%) (Auto) 74.6 % (45.0-75.0) 77.3 % (45.0-75.0) Lymphocytes (%) (Auto) 12.8 % (20.0-45.0) 13.2 % (20.0-45.0) Monocytes (%) (Auto) 7.3 % (1.0-10.0) 6.1 % (1.0-10.0) Eosinophils (%) (Auto) 4.1 % (0.0-3.0) 2.0 % (0.0-3.0) Basophils (%) (Auto) 1.1 % (0.0-2.0) 1.3 % (0.0-2.0) Differential Total Cells Counted 100 Neutrophils % (Manual) 79 % (45-75) Lymphocytes % (Manual) 11 % (20-45) Monocytes % (Manual) 4 % (1-10) Eosinophils % (Manual) 6 % (0-3) Basophils % (Manual) 0 % (0-2) Band Neutrophils 0 % (0-8) Other Cell Type Pathologist review Platelet Estimate Adequate Platelet Morphology Normal Hypochromasia 2+ Anisocytosis 2+ Microcytosis 2+ Erythrocyte Sedimentation Rate 115 MM/HR (0-30) 36 MM/HR (0-30) Reticulocyte Count 2.5 % (0.5-2.0) 1.8 % (0.5-2.0) Prothrombin Time 11.8 SEC (9.30-11.50) Prothromb Time International Ratio 1.1 (0.9-1.1) Activated Partial Thromboplast Time 25 SEC (23-33) Sodium Level 135 MMOL/L (136-145) 134 MMOL/L (136-145) Potassium Level 3.8 MMOL/L (3.5-5.1) 4.0 MMOL/L (3.5-5.1) Chloride Level 100 MMOL/L (98-107) 100 MMOL/L (98-107) Carbon Dioxide Level 26 MMOL/L (21-32) 23 MMOL/L (21-32) Anion Gap 9 mmol/L (5-15) 11 mmol/L (5-15) Blood Urea Nitrogen 21 mg/dL (7-18) 20 mg/dL (7-18) Creatinine 1.1 MG/DL (0.55-1.30) 1.4 MG/DL (0.55-1.30) Estimat Glomerular Filtration Rate 58.8 mL/min (>60) 44.5 mL/min (>60) Glucose Level 157 MG/DL (74-106) 158 MG/DL (74-106) Calcium Level 8.5 MG/DL (8.5-10.1) 8.6 MG/DL (8.5-10.1) Iron Level 21 ug/dL (50-175) Total Iron Binding Capacity 385 ug/dL (250-450) Percent Iron Saturation 5 % (15-50) Unsaturated Iron Binding 364 ug/dL (112-346) Total Bilirubin 0.3 MG/DL (0.2-1.0) 0.4 MG/DL (0.2-1.0) Aspartate Amino Transf (AST/SGOT) 23 U/L (15-37) 34 U/L (15-37) Alanine Aminotransferase (ALT/SGPT) 26 U/L (12-78) 31 U/L (12-78) Alkaline Phosphatase 75 U/L (46-116) 84 U/L (46-116) Lactate Dehydrogenase 236 U/L (81-234) 229 U/L (81-234) Pro-B-Type Natriuretic Peptide 1588 pg/mL (0-125) Total Protein 8.2 G/DL (6.4-8.2) 8.4 G/DL (6.4-8.2) Albumin 3.0 G/DL (3.4-5.0) 2.8 G/DL (3.4-5.0) Globulin 5.2 g/dL 5.6 g/dL Albumin/Globulin Ratio 0.6 (1.0-2.7) 0.5 (1.0-2.7) Carcinoembryonic Antigen 1.9 ng/mL (0.0-4.7) Vitamin B12 Level 378 PG/ML (193-986) Folate 12.3 NG/ML (8.6-58.9) Phosphorus Level 3.6 MG/DL (2.5-4.9) Magnesium Level 2.0 MG/DL (1.8-2.4) Height (Feet): 5 Height (Inches): 2.00 Weight (Pounds): 200 Objective Physical Exam: Vitals: reviewed General: NAD HEENT: nc, at Neck: supple Chest: congested+ Cardiovascular: RRR, no s3, s4 Abdomen: soft, nontender, nd Extremities 1-2+ edema lower ext Neuro: confused in am Chidi Yanez MD Dec 25, 2019 12:55
--- NOTE | 2019-12-25 13:24 | Consultation ---
History of Present Illness General Date patient seen: Dec 25, 2019 Chief Complaint: Edema Present Illness HPI 74 y/o F with hx of COPD on home O2, iron def anemia, former smoker, sp cholecystectomy, CKD, morbid obesity, Hep B, remote IVDA, GERD, mild-mod AR, HTN , Dm2 presented to ED on 12/17/19 with worsening leg edema. She was started on low dose diuretics as an outpatient. +SOB and BOLAND which are chronic but now worsened. +orthopnea. +nausea Denied lightheadedness, dizziness, vomiting/diarrhea, cough, chest pain, fever/ chills. OF note, was admitted here twice on July 2019 for COPD exacerbation. Allergies: Coded Allergies: No Known Allergies (Unverified , 06/17/12) Medication History Scheduled Amlodipine Besylate* (Amlodipine Besylate*), 10 MG ORAL DAILY, (Reported) Aspirin* (Aspir 81*), 81 MG ORAL DAILY, (Reported) Clotrimazole* (Lotrimin*), 1 APPLIC TOPIC TWICE A DAY, (Reported) Glimepiride (Glimepiride), 2 MG ORAL BEFORE BREAKFAST, (Reported) Metformin Hcl* (Metformin Hcl*), 850 MG ORAL BID, (Reported) Scheduled PRN Albuterol Sulfate (Albuterol Sulfate), 1.25 MG HHN Q6HR PRN for Shortness of Breath, (Reported) Albuterol Sulfate* (Albuterol Sulfate Hfa*), 2 PUFF INH Q6H PRN for Shortness of Breath, (Reported) Diphenhydramine Hcl* (Benadryl*), 25 MG ORAL Q6H PRN for Itching, (Reported) Hydrocodone Bit/Acetaminophen 10-325* ([place] 10-325*), 1 TAB ORAL Q6H PRN for For Pain, (Reported) Ibuprofen (Motrin), 600 MG ORAL Q6H PRN for For Pain, (Reported) Discontinued Medications Albuterol Sulfate* (Albuterol Sulfate Hhn*), 3 ML INH Q4H PRN for Shortness of Breath, (Reported) Discontinued Reason: Therapy completed Amlodipine Besylate (Norvasc), 2.5 MG ORAL DAILY, (Reported) Discontinued Reason: Medication dose changed Atorvastatin Calcium* (Atorvastatin Calcium*), 40 MG ORAL BEDTIME, (Reported) Discontinued Reason: Therapy completed Codeine/Promethazine Hcl* (Promethazine-Codeine Syrup*), 5 ML ORAL Q6H PRN for For Cough, (Reported) Discontinued Reason: Pt stopped taking med Docusate Sodium* (Colace*), 100 MG ORAL THREE TIMES A DAY, (Reported) Discontinued Reason: Therapy completed Gabapentin* (Gabapentin*), 300 MG ORAL BEDTIME, (Reported) Discontinued Reason: Therapy completed Losartan/Hydrochlorothiazide (Losartan-Hctz 100-12.5 Mg Tab), 1 TAB ORAL DAILY Discontinued Reason: Therapy completed Losartan/Hydrochlorothiazide 100-25 Tablet (Hyzaar 100-25 Tablet), 1 TAB ORAL DAILY, (Reported) Discontinued Reason: Therapy completed Magnesium Oxide (Magnesium), 400 MG PO TID, (Reported) Discontinued Reason: Therapy completed Nateglinide* (Starlix*), 60 MG ORAL THREE TIMES A DAY, (Reported) Discontinued Reason: Therapy completed Pantoprazole* (Pantoprazole*), 40 MG ORAL EVERY 12 HOURS, (Reported) Discontinued Reason: Therapy completed Temazepam (Temazepam*), 15 MG ORAL BEDTIME PRN for insomnia, (Reported) Discontinued Reason: Therapy completed Theophylline Anhydrous (Theophylline Anhydrous), 100 MG PO Q12HR, (Reported) Discontinued Reason: Therapy completed Patient History Healthcare decision maker Resuscitation status Advanced Directive on File Patient History Narrative Pmhx: as above Shx: Denies any smoking, alcohol, or drug use at the present time. Fhx: non contributory Review of Systems All Other Systems: negative except mentioned in HPI Physical Exam Physical Exam Narrative GENERAL: Calm in bed, oriented x3, slight short of breath. CARDIOVASCULAR: No murmur. LUNGS: Poor exchange. ABDOMEN: Bowel sounds distant. EXTREMITIES: Showed no cyanosis or clubbing. 1+ edema bilateral lower extremity. NEUROLOGIC: Patient moves all extremities, slightly weak Last 24 Hour Vital Signs Date Time Temp Pulse Resp B/P (MAP) Pulse Ox O2 Delivery O2 Flow Rate FiO2 12/25/19 12:00 96.8 80 20 158/73 (101) 88 12/25/19 09:28 121/61 12/25/19 09:00 Nasal Cannula 3.0 12/25/19 08:00 96.4 90 22 121/61 (81) 88 12/25/19 08:00 95 12/25/19 04:40 98.1 12/25/19 04:00 96 12/25/19 04:00 97.8 96 19 117/60 (79) 96 12/25/19 00:00 98 12/25/19 00:00 98.1 84 19 134/56 (82) 98 12/24/19 21:58 Nasal Cannula 3.0 12/24/19 20:00 101 12/24/19 20:00 98.6 61 20 103/41 (61) 96 12/24/19 16:00 96.4 81 18 131/46 (74) 96 12/24/19 16:00 91 Intake and Output 12/24/19 12/25/19 19:00 07:00 Intake Total 140 ml Output Total 1200 ml Balance -1060 ml Intake Oral 140 ml Output Urine Total 1200 ml # Voids 3 Laboratory Tests Test 12/25/19 05:53 White Blood Count 15.4 K/UL (4.8-10.8) H Red Blood Count 4.22 M/UL (4.20-5.40) Hemoglobin 9.1 G/DL (12.0-16.0) L Hematocrit 31.7 % (37.0-47.0) L Mean Corpuscular Volume 75 FL (80-99) L Mean Corpuscular Hemoglobin 21.7 PG (27.0-31.0) L Mean Corpuscular Hemoglobin Concent 28.8 G/DL (32.0-36.0) L Red Cell Distribution Width 22.1 % (11.6-14.8) H Platelet Count 336 K/UL (150-450) Mean Platelet Volume 6.9 FL (6.5-10.1) Neutrophils (%) (Auto) 77.3 % (45.0-75.0) H Lymphocytes (%) (Auto) 13.2 % (20.0-45.0) L Monocytes (%) (Auto) 6.1 % (1.0-10.0) Eosinophils (%) (Auto) 2.0 % (0.0-3.0) Basophils (%) (Auto) 1.3 % (0.0-2.0) Erythrocyte Sedimentation Rate 36 MM/HR (0-30) H Reticulocyte Count 1.8 % (0.5-2.0) Sodium Level 134 MMOL/L (136-145) L Potassium Level 4.0 MMOL/L (3.5-5.1) Chloride Level 100 MMOL/L (98-107) Carbon Dioxide Level 23 MMOL/L (21-32) Anion Gap 11 mmol/L (5-15) Blood Urea Nitrogen 20 mg/dL (7-18) H Creatinine 1.4 MG/DL (0.55-1.30) H Estimat Glomerular Filtration Rate 44.5 mL/min (>60) Glucose Level 158 MG/DL (74-106) H Calcium Level 8.6 MG/DL (8.5-10.1) Phosphorus Level 3.6 MG/DL (2.5-4.9) Magnesium Level 2.0 MG/DL (1.8-2.4) Total Bilirubin 0.4 MG/DL (0.2-1.0) Aspartate Amino Transf (AST/SGOT) 34 U/L (15-37) Alanine Aminotransferase (ALT/SGPT) 31 U/L (12-78) Alkaline Phosphatase 84 U/L (46-116) Lactate Dehydrogenase 229 U/L (81-234) Total Protein 8.4 G/DL (6.4-8.2) H Albumin 2.8 G/DL (3.4-5.0) L Globulin 5.6 g/dL Albumin/Globulin Ratio 0.5 (1.0-2.7) L Height (Feet): 5 Height (Inches): 2.00 Weight (Pounds): 200 Medications Current Medications Medications (Trade) Dose Ordered Sig/Ana Maria Route PRN Reason Start Time Stop Time Status Last Admin Dose Admin Al Hydroxide/Mg Hydroxide (Mylanta) 30 ml Q6H PRN ORAL To Patient Comfort 12/25/19 07:00 01/24/20 06:59 Betamethasone/ Clotrimazole (Lotrisone) 1 applic TWICE A DAY TOPIC 12/19/19 18:00 12/29/19 17:59 12/25/19 09:33 Dextrose (Dextrose 50%) 25 ml Q30M PRN IV Hypoglycemia 12/18/19 20:00 03/17/20 19:59 Dextrose (Dextrose 50%) 50 ml Q30M PRN IV Hypoglycemia 12/18/19 20:00 03/17/20 19:59 Diphenhydramine HCl (Benadryl) 25 mg Q4H PRN IVP Itching 12/18/19 20:15 01/17/20 20:14 12/24/19 20:06 Docusate Sodium (Colace) 100 mg BIDPRN PRN ORAL Constipation 12/22/19 20:00 01/21/20 19:59 12/22/19 21:01 Docusate Sodium (Colace) 100 mg THREE TIMES A DAY ORAL 12/23/19 13:00 01/22/20 12:59 12/25/19 12:40 Furosemide (Lasix) 20 mg DAILY IV 12/23/19 09:00 01/22/20 08:59 12/25/19 09:27 Gabapentin (Neurontin) 300 mg BEDTIME ORAL 12/18/19 21:00 01/17/20 20:59 12/24/19 20:06 Heparin Sodium (Porcine) (Heparin 5000 units/ml) 5,000 units EVERY 12 HOURS SUBQ 12/18/19 09:00 02/01/20 08:59 12/25/19 09:27 Insulin Aspart (NovoLOG) BEFORE MEALS AND HS SUBQ 12/18/19 21:00 03/17/20 20:59 12/25/19 06:03 Lactulose (Cephulac) 30 gm THREE TIMES A DAY ORAL 12/23/19 13:00 01/22/20 12:59 12/25/19 09:28 Lisinopril (ZestriL) 10 mg DAILY ORAL 12/19/19 09:00 01/18/20 08:59 12/25/19 09:28 Mineral Oil (Fleet's Mineral Oil Enema) 133 ml EVERY OTHER DAY RECTAL 12/25/19 09:00 01/24/20 08:59 12/25/19 09:28 Morphine Sulfate (Morphine Sulfate) 2 mg Q4H PRN IVP For Pain 12/18/19 20:15 12/25/19 20:14 12/25/19 04:02 Promethazine HCl/ Codeine (Phenergan with Codeine) 5 ml Q4H PRN ORAL For Cough 12/21/19 22:00 01/20/20 21:59 12/21/19 22:12 Tamsulosin HCl (Flomax) 0.4 mg BEDTIME ORAL 12/23/19 21:00 01/22/20 20:59 12/24/19 20:06 Assessment/Plan Assessment/Plan: Abx: None Assessment: CHF exacerbation Acute on chronic hypoxic respiratory failure- on 3l NC- having episodes of desaturation to the high 80s- will evaluate for COVID -12/21 CXR: Vascular and interstitial prominence unchanged. Minimal streaky atelectasis in the lung bases noted. T -12/16 CXR: Basilar interstitial prominence, similar to the previous study, may reflect combination of acute interstitial congestion and chronic interstitial disease. Correlate with clinical findings Leg edema -V. duplex BLE: Negative for evidence of lower extremity deep venous thrombosis bilaterally Afebrile Leukocytosis, increased- r/o probable PNA, UTI FANY COPD on home O2 iron def anemia former smoker sp cholecystectomy CKD morbid obesity Hep B remote IVDA GERD mild-mod AR HTN Dm2 Plan: -Start Empiric CEfepime and Azithromycin -f/u cx -Monitor CBC/CMP, temperatures -COVID 19 isolation and testing -u/a w/ reflex, Bcx x2 -CBC, CMP am Thank you for this consultation. Will continue to follow along with you. Discussed with Aleksandra Blair M.D. Dec 25, 2019 13:24
--- NOTE | 2019-12-25 13:29 | General Progress Note ---
Assessment/Plan Problem List: (1) Peripheral edema ICD Codes: R60.9 - Edema, unspecified SNOMED: 025120327 (2) Anemia ICD Codes: D64.9 - Anemia, unspecified SNOMED: 167210845 (3) Diabetes mellitus ICD Codes: E11.9 - Type 2 diabetes mellitus without complications SNOMED: 06171110 (4) COPD (chronic obstructive pulmonary disease) ICD Codes: J44.9 - Chronic obstructive pulmonary disease, unspecified SNOMED: 75533742 (5) Obesity (BMI 30.0-34.9) ICD Codes: E66.9 - Obesity, unspecified SNOMED: 109569584368177 (6) CHF exacerbation ICD Codes: I50.9 - Heart failure, unspecified SNOMED: 474591280, [id number] Qualifiers: Qualified Codes: I50.9 - Heart failure, unspecified Status: unchanged Assessment/Plan: o2 pulm tx diurese pt diet cbc bmp am Subjective Respiratory: Reports: shortness of breath Allergies: Coded Allergies: No Known Allergies (Unverified , 06/17/12) All Systems: reviewed and negative except above Subjective o2nc sleepy calm Objective Last 24 Hour Vital Signs Date Time Temp Pulse Resp B/P (MAP) Pulse Ox O2 Delivery O2 Flow Rate FiO2 12/25/19 12:00 96.8 80 20 158/73 (101) 88 12/25/19 12:00 88 12/25/19 09:28 121/61 12/25/19 09:00 Nasal Cannula 3.0 12/25/19 08:00 96.4 90 22 121/61 (81) 88 12/25/19 08:00 95 12/25/19 04:40 98.1 12/25/19 04:00 96 12/25/19 04:00 97.8 96 19 117/60 (79) 96 12/25/19 00:00 98 12/25/19 00:00 98.1 84 19 134/56 (82) 98 12/24/19 21:58 Nasal Cannula 3.0 12/24/19 20:00 101 12/24/19 20:00 98.6 61 20 103/41 (61) 96 12/24/19 16:00 96.4 81 18 131/46 (74) 96 12/24/19 16:00 91 Intake and Output 12/24/19 12/25/19 19:00 07:00 Intake Total 140 ml Output Total 1200 ml Balance -1060 ml Intake Oral 140 ml Output Urine Total 1200 ml # Voids 3 Laboratory Tests 12/25/19 05:53: White Blood Count 15.4H, Red Blood Count 4.22, Hemoglobin 9.1L, Hematocrit 31.7L , Mean Corpuscular Volume 75L, Mean Corpuscular Hemoglobin 21.7L, Mean Corpuscular Hemoglobin Concent 28.8L, Red Cell Distribution Width 22.1H, Platelet Count 336, Mean Platelet Volume 6.9, Neutrophils (%) (Auto) 77.3H, Lymphocytes (%) (Auto) 13.2L, Monocytes (%) (Auto) 6.1, Eosinophils (%) (Auto) 2.0, Basophils (%) (Auto) 1.3, Erythrocyte Sedimentation Rate 36H, Reticulocyte Count 1.8, Sodium Level 134L, Potassium Level 4.0, Chloride Level 100, Carbon Dioxide Level 23, Anion Gap 11, Blood Urea Nitrogen 20H, Creatinine 1.4H, Estimat Glomerular Filtration Rate 44.5, Glucose Level 158H, Calcium Level 8.6, Phosphorus Level 3.6, Magnesium Level 2.0, Ferritin [Pending], Total Bilirubin 0.4, Aspartate Amino Transf (AST/SGOT) 34, Alanine Aminotransferase (ALT/SGPT) 31, Alkaline Phosphatase 84, Lactate Dehydrogenase 229, Total Protein 8.4H, Albumin 2.8L, Globulin 5.6, Albumin/Globulin Ratio 0.5L Height (Feet): 5 Height (Inches): 2.00 Weight (Pounds): 200 General Appearance: lethargic EENT: normal ENT inspection Neck: normal alignment Cardiovascular: normal peripheral pulses, normal rate, regular rhythm Respiratory/Chest: chest wall non-tender, lungs clear, normal breath sounds Abdomen: normal bowel sounds, non tender, soft Extremities: normal inspection Edema: 1+ Arm (L), 1+ Arm (R), 1+ Leg (L), 1+ Leg (R), 1+ Pedal (L), 1+ Pedal ( R), 1+ Generalized Neurologic: responsive, motor weakness Skin: normal pigmentation, warm/dry Jai Siddiqi DO Dec 25, 2019 13:29
[2019-12-25] MEDS: Azithromycin 250mg tab ORAL SCH (14:38)
[2019-12-25 16:00] VITALS: BP 125/77
[2019-12-25] MEDS ORDERED: Cefepime HCl 1 GM in D5W 55 ML IVPB SCH (18:00)
--- NOTE | 2019-12-25 19:32 | Cardiology Progress Note ---
Assessment/Plan Assessment/Plan 1. Chronic obstructive pulmonary disease. 2. Pulmonary hypertension. 3. Aortic stenosis. 4. Essential hypertension. 5. Diabetes mellitus. 6. Obesity. 7. Chronic liver disease. 8. iron def anemia dc iv lasix as cr increased lwo dose ivf is now in covid isolation labs noted lisinopril 10mg daily tele sinus Subjective ROS Limited/Unobtainable: Yes Subjective pt in covid isolation now per dr morris : Denied lightheadedness, dizziness, vomiting/diarrhea, cough, chest pain, fever/chills. Objective Last 24 Hour Vital Signs Date Time Temp Pulse Resp B/P (MAP) Pulse Ox O2 Delivery O2 Flow Rate FiO2 12/25/19 16:00 94 12/25/19 16:00 96.8 88 18 125/77 (93) 88 12/25/19 12:00 96.8 80 20 158/73 (101) 88 12/25/19 12:00 88 12/25/19 09:28 121/61 12/25/19 09:00 Nasal Cannula 3.0 12/25/19 08:00 96.4 90 22 121/61 (81) 88 12/25/19 08:00 95 12/25/19 04:40 98.1 12/25/19 04:00 96 12/25/19 04:00 97.8 96 19 117/60 (79) 96 12/25/19 00:00 98 12/25/19 00:00 98.1 84 19 134/56 (82) 98 12/24/19 21:58 Nasal Cannula 3.0 12/24/19 20:00 101 12/24/19 20:00 98.6 61 20 103/41 (61) 96 Intake and Output 12/24/19 12/25/19 19:00 07:00 Intake Total 140 ml Output Total 1200 ml Balance -1060 ml Intake Oral 140 ml Output Urine Total 1200 ml # Voids 3 Laboratory Tests Test 12/25/19 05:53 White Blood Count 15.4 K/UL (4.8-10.8) H Red Blood Count 4.22 M/UL (4.20-5.40) Hemoglobin 9.1 G/DL (12.0-16.0) L Hematocrit 31.7 % (37.0-47.0) L Mean Corpuscular Volume 75 FL (80-99) L Mean Corpuscular Hemoglobin 21.7 PG (27.0-31.0) L Mean Corpuscular Hemoglobin Concent 28.8 G/DL (32.0-36.0) L Red Cell Distribution Width 22.1 % (11.6-14.8) H Platelet Count 336 K/UL (150-450) Mean Platelet Volume 6.9 FL (6.5-10.1) Neutrophils (%) (Auto) 77.3 % (45.0-75.0) H Lymphocytes (%) (Auto) 13.2 % (20.0-45.0) L Monocytes (%) (Auto) 6.1 % (1.0-10.0) Eosinophils (%) (Auto) 2.0 % (0.0-3.0) Basophils (%) (Auto) 1.3 % (0.0-2.0) Erythrocyte Sedimentation Rate 36 MM/HR (0-30) H Reticulocyte Count 1.8 % (0.5-2.0) Sodium Level 134 MMOL/L (136-145) L Potassium Level 4.0 MMOL/L (3.5-5.1) Chloride Level 100 MMOL/L (98-107) Carbon Dioxide Level 23 MMOL/L (21-32) Anion Gap 11 mmol/L (5-15) Blood Urea Nitrogen 20 mg/dL (7-18) H Creatinine 1.4 MG/DL (0.55-1.30) H Estimat Glomerular Filtration Rate 44.5 mL/min (>60) Glucose Level 158 MG/DL (74-106) H Calcium Level 8.6 MG/DL (8.5-10.1) Phosphorus Level 3.6 MG/DL (2.5-4.9) Magnesium Level 2.0 MG/DL (1.8-2.4) Ferritin 325 NG/ML (8-388) Total Bilirubin 0.4 MG/DL (0.2-1.0) Aspartate Amino Transf (AST/SGOT) 34 U/L (15-37) Alanine Aminotransferase (ALT/SGPT) 31 U/L (12-78) Alkaline Phosphatase 84 U/L (46-116) Lactate Dehydrogenase 229 U/L (81-234) Total Protein 8.4 G/DL (6.4-8.2) H Albumin 2.8 G/DL (3.4-5.0) L Globulin 5.6 g/dL Albumin/Globulin Ratio 0.5 (1.0-2.7) L Objective not examined as now in the [facility] per dr morris GENERAL: Calm in bed, oriented x3, slight short of breath. CARDIOVASCULAR: No murmur. LUNGS: Poor exchange. ABDOMEN: Bowel sounds distant. EXTREMITIES: Showed no cyanosis or clubbing. 1+ edema bilateral lower extremity Panfilo Mahan MD Dec 25, 2019 19:32
[2019-12-25 20:00] VITALS: BP 109/62
[2019-12-25] MEDS: Tamsulosin 0.4mg cap ORAL SCH (20:59)
[2019-12-26] VITALS: BP 136/77
[2019-12-26 04:00] VITALS: BP 137/64
[2019-12-26 06:21] LABS: BASOPHILS % (AUTO) 1.3 % (0.0-2.0); EOSINOPHILS % (AUTO) 3.8 % (0.0-3.0); HEMATOCRIT 33.1 % (37.0-47.0); HEMOGLOBIN 9.4 G/DL (12.0-16.0); LYMPHOCYTES % (AUTO) 17.8 % (20.0-45.0); MEAN CORPUSCULAR VOLUME 76 FL (80-99); MONOCYTES % (AUTO) 6.8 % (1.0-10.0); NEUTROPHILS % (AUTO) 70.3 % (45.0-75.0); PLATELET COUNT 330 K/UL (150-450); RED BLOOD COUNT 4.37 M/UL (4.20-5.40); RED CELL DISTRIBUTION WIDTH 22.8 % (11.6-14.8); WHITE BLOOD COUNT 12.6 K/UL (4.8-10.8)
[2019-12-26] MEDS: NovoLOG Insulin Flexpen SUBQ SCH ×3 (06:30→17:23)
[2019-12-26 07:08] LABS: APPEARANCE,URINE CLEAR; BILIRUBIN, URINE NEGATIVE (NEGATIVE); COLOR,URINE PALE YELLOW; GLUCOSE, URINE (UA) NEGATIVE (NEGATIVE); KETONES,URINE NEGATIVE (NEGATIVE); LEUKOCYTE ESTERASE ,URINE 1+ (NEGATIVE); NITRITE,URINE NEGATIVE (NEGATIVE); PH,URINE 5 (4.5-8.0); PROTEIN,URINE 2+ (NEGATIVE); UROBILINOGEN,URINE NORMAL MG/DL (0.0-1.0)
--- NOTE | 2019-12-26 07:23 | Hematology/Onc Progress Note ---
Assessment/Plan Assessment/Plan # Anemia of chronic disease due to underlying chronic medical issues, multifactorial v Gi bleed --> Anemia workup has been reviewed. Ferritin 325 --> No evidence of hemolysis is noted, peripheral smear has been reviewed. --> Hgb goal >7. Transfuse prn. --> Epogen or iron at this time is not particularly indicated --> Medications have been reviewed --> low threshold for gi evaluation in case has occult + --> hgb trend 8.5-->8-->9.1-->9.4 # Leuckoytosis likely 2/2 reactive process, imaging is noted --> smear has been reviewe, no blasts --> abx: cefepime/azithro --> wbc trend: 12.6 # Chronic liver disease --> appears stable # Diabetes mellitus --> a1c goal <8 accuchecks qac and qhs # COPD (chronic obstructive pulmonary disease) ==> steriods and breathing treatments prn # Obesity (BMI 30.0-34.9) --> weight loss recommended # CHF exacerbation --> as per cards recs # Dc planning The timing of this note does not necessarily reflect the time of the patient was seen. Greatly appreciate consultation. Subjective Allergies: Coded Allergies: No Known Allergies (Unverified , 06/17/12) Subjective 12/22 requiring diuresis before d/c and bm 12/24 no bleeding reported, occult pending as is ferritin, sating on 4l nc 12/25 alert, ferritin 325, covid 19 negative, h/h stable, nc 3l Objective Objective Current Medications Medications (Trade) Dose Ordered Sig/Ana Maria Route PRN Reason Start Time Stop Time Status Last Admin Dose Admin Al Hydroxide/Mg Hydroxide (Mylanta) 30 ml Q6H PRN ORAL To Patient Comfort 12/25/19 07:00 01/24/20 06:59 Azithromycin (Zithromax) 500 mg DAILY ORAL 12/25/19 13:30 01/01/20 13:29 12/25/19 14:38 Betamethasone/ Clotrimazole (Lotrisone) 1 applic TWICE A DAY TOPIC 12/19/19 18:00 12/29/19 17:59 12/25/19 17:08 Cefepime HCl 1 gm/ Dextrose 55 ml @ 110 mls/hr Q24H IVPB 12/25/19 18:00 01/01/20 17:59 12/25/19 18:24 Dextrose (Dextrose 50%) 25 ml Q30M PRN IV Hypoglycemia 12/18/19 20:00 03/17/20 19:59 Dextrose (Dextrose 50%) 50 ml Q30M PRN IV Hypoglycemia 12/18/19 20:00 03/17/20 19:59 Diphenhydramine HCl (Benadryl) 25 mg Q4H PRN IVP Itching 12/18/19 20:15 01/17/20 20:14 12/24/19 20:06 Docusate Sodium (Colace) 100 mg BIDPRN PRN ORAL Constipation 12/22/19 20:00 01/21/20 19:59 12/22/19 21:01 Docusate Sodium (Colace) 100 mg THREE TIMES A DAY ORAL 12/23/19 13:00 01/22/20 12:59 12/25/19 17:08 Gabapentin (Neurontin) 300 mg BEDTIME ORAL 12/18/19 21:00 01/17/20 20:59 12/25/19 20:59 Heparin Sodium (Porcine) (Heparin 5000 units/ml) 5,000 units EVERY 12 HOURS SUBQ 12/18/19 09:00 02/01/20 08:59 12/25/19 21:00 Insulin Aspart (NovoLOG) BEFORE MEALS AND HS SUBQ 12/18/19 21:00 03/17/20 20:59 12/25/19 20:59 Lactulose (Cephulac) 30 gm THREE TIMES A DAY ORAL 12/23/19 13:00 01/22/20 12:59 12/25/19 09:28 Lisinopril (ZestriL) 10 mg DAILY ORAL 12/19/19 09:00 01/18/20 08:59 12/25/19 09:28 Mineral Oil (Fleet's Mineral Oil Enema) 133 ml EVERY OTHER DAY RECTAL 12/25/19 09:00 01/24/20 08:59 12/25/19 09:28 Promethazine HCl/ Codeine (Phenergan with Codeine) 5 ml Q4H PRN ORAL For Cough 12/21/19 22:00 01/20/20 21:59 6/14/20 22:12 Sodium Chloride 1,000 ml @ 50 mls/hr Q20H IV 12/25/19 21:00 01/24/20 20:59 12/25/19 21:42 Tamsulosin HCl (Flomax) 0.4 mg BEDTIME ORAL 12/23/19 21:00 01/22/20 20:59 12/25/19 20:59 Last 24 Hour Vital Signs Date Time Temp Pulse Resp B/P (MAP) Pulse Ox O2 Delivery O2 Flow Rate FiO2 12/26/19 04:00 85 12/26/19 04:00 97.9 91 19 137/64 (88) 93 12/26/19 00:00 98.1 92 19 136/77 (96) 90 12/26/19 00:00 93 12/25/19 21:00 Nasal Cannula 3.0 12/25/19 20:00 98.1 98 20 109/62 (78) 91 12/25/19 20:00 93 12/25/19 19:47 93 Nasal Cannula 3.0 32 12/25/19 16:00 94 12/25/19 16:00 96.8 88 18 125/77 (93) 88 12/25/19 12:00 96.8 80 20 158/73 (101) 88 12/25/19 12:00 88 12/25/19 09:28 121/61 12/25/19 09:00 Nasal Cannula 3.0 12/25/19 08:00 96.4 90 22 121/61 (81) 88 12/25/19 08:00 95 12/25/19 04:40 98.1 12/25/19 04:00 96 12/25/19 04:00 97.8 96 19 117/60 (79) 96 12/25/19 00:00 98 12/25/19 00:00 98.1 84 19 134/56 (82) 98 12/24/19 21:58 Nasal Cannula 3.0 12/24/19 20:00 101 12/24/19 20:00 98.6 61 20 103/41 (61) 96 12/24/19 16:00 96.4 81 18 131/46 (74) 96 12/24/19 16:00 91 12/24/19 12:00 97.7 94 19 122/51 (74) 92 12/24/19 12:00 97 12/24/19 09:00 Nasal Cannula 3.0 12/24/19 08:20 107/92 12/24/19 08:00 94 12/24/19 08:00 96.5 94 20 107/92 (97) 96 Intake and Output 12/25/19 12/26/19 19:00 07:00 Intake Total 600 ml Balance 600 ml Intake Oral 600 ml # Voids 3 # Bowel Movements 3 Labs Test 12/25/19 05:53 12/26/19 05:10 12/26/19 06:00 White Blood Count 15.4 K/UL (4.8-10.8) 12.6 K/UL (4.8-10.8) Red Blood Count 4.22 M/UL (4.20-5.40) 4.37 M/UL (4.20-5.40) Hemoglobin 9.1 G/DL (12.0-16.0) 9.4 G/DL (12.0-16.0) Hematocrit 31.7 % (37.0-47.0) 33.1 % (37.0-47.0) Mean Corpuscular Volume 75 FL (80-99) 76 FL (80-99) Mean Corpuscular Hemoglobin 21.7 PG (27.0-31.0) 21.4 PG (27.0-31.0) Mean Corpuscular Hemoglobin Concent 28.8 G/DL (32.0-36.0) 28.3 G/DL (32.0-36.0) Red Cell Distribution Width 22.1 % (11.6-14.8) 22.8 % (11.6-14.8) Platelet Count 336 K/UL (150-450) 330 K/UL (150-450) Mean Platelet Volume 6.9 FL (6.5-10.1) 6.4 FL (6.5-10.1) Neutrophils (%) (Auto) 77.3 % (45.0-75.0) 70.3 % (45.0-75.0) Lymphocytes (%) (Auto) 13.2 % (20.0-45.0) 17.8 % (20.0-45.0) Monocytes (%) (Auto) 6.1 % (1.0-10.0) 6.8 % (1.0-10.0) Eosinophils (%) (Auto) 2.0 % (0.0-3.0) 3.8 % (0.0-3.0) Basophils (%) (Auto) 1.3 % (0.0-2.0) 1.3 % (0.0-2.0) Erythrocyte Sedimentation Rate 36 MM/HR (0-30) Reticulocyte Count 1.8 % (0.5-2.0) Sodium Level 134 MMOL/L (136-145) Potassium Level 4.0 MMOL/L (3.5-5.1) Chloride Level 100 MMOL/L (98-107) Carbon Dioxide Level 23 MMOL/L (21-32) Anion Gap 11 mmol/L (5-15) Blood Urea Nitrogen 20 mg/dL (7-18) Creatinine 1.4 MG/DL (0.55-1.30) Estimat Glomerular Filtration Rate 44.5 mL/min (>60) Glucose Level 158 MG/DL (74-106) Calcium Level 8.6 MG/DL (8.5-10.1) Phosphorus Level 3.6 MG/DL (2.5-4.9) Magnesium Level 2.0 MG/DL (1.8-2.4) Ferritin 325 NG/ML (8-388) Total Bilirubin 0.4 MG/DL (0.2-1.0) Aspartate Amino Transf (AST/SGOT) 34 U/L (15-37) Alanine Aminotransferase (ALT/SGPT) 31 U/L (12-78) Alkaline Phosphatase 84 U/L (46-116) Lactate Dehydrogenase 229 U/L (81-234) Total Protein 8.4 G/DL (6.4-8.2) Albumin 2.8 G/DL (3.4-5.0) Globulin 5.6 g/dL Albumin/Globulin Ratio 0.5 (1.0-2.7) Urine Color Pale yellow Urine Appearance Clear Urine pH 5 (4.5-8.0) Urine Specific [place] 1.015 (1.005-1.035) Urine Protein 2+ (NEGATIVE) Urine Glucose (UA) Negative (NEGATIVE) Urine Ketones Negative (NEGATIVE) Urine Blood Negative (NEGATIVE) Urine Nitrite Negative (NEGATIVE) Urine Bilirubin Negative (NEGATIVE) Urine Urobilinogen Normal MG/DL (0.0-1.0) Urine Leukocyte Esterase 1+ (NEGATIVE) Urine RBC 0-2 /HPF (0 - 2) Urine WBC 5-10 /HPF (0 - 2) Urine Squamous Epithelial Cells Few /LPF (NONE/OCC) Urine Bacteria Few /HPF (NONE) Micro Microbiology Date/Time Source Procedure Growth Status 12/25/19 14:28 Nasopharynx Coronavirus COVID-19 PCR ([facility]) - Final Complete Height (Feet): 5 Height (Inches): 2.00 Weight (Pounds): 200 Objective Physical Exam: Vitals: reviewed General: NAD HEENT: nc, at Neck: supple Chest: congested+, nc+ Cardiovascular: RRR, no s3, s4 Abdomen: soft, nontender, nd Extremities 1-2+ edema lower ext Neuro: confused in am Chidi Yanez MD Dec 26, 2019 07:23
[2019-12-26 07:27] LABS: ALANINE AMINOTRANSFERASE 34 U/L (12-78); ALBUMIN/GLOBULIN RATIO 0.5 (1.0-2.7); ALKALINE PHOSPHATASE 97 U/L (46-116); ANION GAP 12 mmol/L (5-15); ASPARTATE AMINO TRANSFERASE 42 U/L (15-37); BILIRUBIN,TOTAL 0.3 MG/DL (0.2-1.0); BLOOD UREA NITROGEN 22 mg/dL (7-18); CALCIUM 8.8 MG/DL (8.5-10.1); CARBON DIOXIDE 22 MMOL/L (21-32); CHLORIDE 101 MMOL/L (98-107); CREATININE 1.3 MG/DL (0.55-1.30); POTASSIUM 4.1 MMOL/L (3.5-5.1); SODIUM 135 MMOL/L (136-145)
[2019-12-26 08:00] VITALS: BP 128/70
[2019-12-26] MEDS: Azithromycin 250mg tab ORAL SCH (09:34)
[2019-12-26] MEDS: Lisinopril 10mg tab ORAL SCH (09:34)
[2019-12-26] MEDS: Docusate 100mg cap ORAL SCH ×2 (09:34→12:32)
[2019-12-26] MEDS: Lactulose 20gm/30ml UDC ORAL SCH ×2 (09:34→12:34)
[2019-12-26] MEDS: Morphine Sulfate 2mg/ml Inj(IV/IM USE ONLY) IVP PRN ×3 (09:35→18:12)
--- NOTE | 2019-12-26 09:35 | General Progress Note ---
Assessment/Plan Problem List: (1) Peripheral edema ICD Codes: R60.9 - Edema, unspecified SNOMED: 260673168 (2) Anemia ICD Codes: D64.9 - Anemia, unspecified SNOMED: 022935848 (3) Diabetes mellitus ICD Codes: E11.9 - Type 2 diabetes mellitus without complications SNOMED: 05769592 (4) COPD (chronic obstructive pulmonary disease) ICD Codes: J44.9 - Chronic obstructive pulmonary disease, unspecified SNOMED: 09964578 (5) Obesity (BMI 30.0-34.9) ICD Codes: E66.9 - Obesity, unspecified SNOMED: 116131790526619 (6) CHF exacerbation ICD Codes: I50.9 - Heart failure, unspecified SNOMED: 860296145, [id number] Qualifiers: Qualified Codes: I50.9 - Heart failure, unspecified Status: unchanged Assessment/Plan: o2 pulm tx diurese pt diet cbc bmp am Subjective Constitutional: Reports: weakness Respiratory: Reports: shortness of breath Allergies: Coded Allergies: No Known Allergies (Unverified , 06/17/12) All Systems: reviewed and negative except above Subjective o2nc sl leg pain Objective Last 24 Hour Vital Signs Date Time Temp Pulse Resp B/P (MAP) Pulse Ox O2 Delivery O2 Flow Rate FiO2 12/26/19 08:00 98.8 92 18 128/70 (89) 93 12/26/19 04:00 85 12/26/19 04:00 97.9 91 19 137/64 (88) 93 12/26/19 00:00 98.1 92 19 136/77 (96) 90 12/26/19 00:00 93 12/25/19 21:00 Nasal Cannula 3.0 12/25/19 20:00 98.1 98 20 109/62 (78) 91 12/25/19 20:00 93 12/25/19 19:47 93 Nasal Cannula 3.0 32 12/25/19 16:00 94 12/25/19 16:00 96.8 88 18 125/77 (93) 88 12/25/19 12:00 96.8 80 20 158/73 (101) 88 12/25/19 12:00 88 Intake and Output 12/25/19 12/26/19 19:00 07:00 Intake Total 600 ml Balance 600 ml Intake Oral 600 ml # Voids 3 # Bowel Movements 3 Laboratory Tests 12/26/19 05:10: White Blood Count 12.6H, Red Blood Count 4.37, Hemoglobin 9.4L, Hematocrit 33.1L , Mean Corpuscular Volume 76L, Mean Corpuscular Hemoglobin 21.4L, Mean Corpuscular Hemoglobin Concent 28.3L, Red Cell Distribution Width 22.8H, Platelet Count 330, Mean Platelet Volume 6.4L, Neutrophils (%) (Auto) 70.3, Lymphocytes (%) (Auto) 17.8L, Monocytes (%) (Auto) 6.8, Eosinophils (%) (Auto) 3.8H, Basophils (%) (Auto) 1.3, Sodium Level 135L, Potassium Level 4.1, Chloride Level 101, Carbon Dioxide Level 22, Anion Gap 12, Blood Urea Nitrogen 22H, Creatinine 1.3, Estimat Glomerular Filtration Rate 48.4, Glucose Level 129H , Calcium Level 8.8, Total Bilirubin 0.3, Aspartate Amino Transf (AST/SGOT) 42H , Alanine Aminotransferase (ALT/SGPT) 34, Alkaline Phosphatase 97, Total Protein 8.7H, Albumin 3.0L, Globulin 5.7, Albumin/Globulin Ratio 0.5L 12/26/19 06:00: Urine Color Pale yellow, Urine Appearance Clear, Urine pH 5, Urine Specific [place] 1.015, Urine Protein 2+H, Urine Glucose (UA) Negative, Urine Ketones Negative, Urine Blood Negative, Urine Nitrite Negative, Urine Bilirubin Negative , Urine Urobilinogen Normal, Urine Leukocyte Esterase 1+H, Urine RBC 0-2, Urine WBC 5-10H, Urine Squamous Epithelial Cells Few, Urine Bacteria Few Height (Feet): 5 Height (Inches): 2.00 Weight (Pounds): 200 General Appearance: lethargic EENT: normal ENT inspection Neck: normal alignment Cardiovascular: normal peripheral pulses, normal rate, regular rhythm Respiratory/Chest: chest wall non-tender, lungs clear, normal breath sounds Abdomen: normal bowel sounds, non tender, soft Extremities: normal inspection Edema: 1+ Arm (L), 1+ Arm (R), 1+ Leg (L), 1+ Leg (R), 1+ Pedal (L), 1+ Pedal ( R), 1+ Generalized Edema: trace edema Neurologic: responsive, motor weakness Skin: normal pigmentation, warm/dry Jai Siddiqi DO Dec 26, 2019 09:35
[2019-12-26] MEDS: Heparin 5000 units/ml inj SUBQ SCH (09:40)
[2019-12-26] MEDS: Lotrisone Cream 15gm TOPIC SCH (09:41)
[2019-12-26 12:00] VITALS: BP 135/55
--- NOTE | 2019-12-26 12:40 | Pulmonology Progress Note ---
Subjective ROS Limited/Unobtainable: Yes Interval Events: diuresing well, desating easily after PT Constitutional: Reports: no symptoms HEENT: Repors: no symptoms Allergies: Coded Allergies: No Known Allergies (Unverified , 06/17/12) All Systems: reviewed and negative except above Objective Last 24 Hour Vital Signs Date Time Temp Pulse Resp B/P (MAP) Pulse Ox O2 Delivery O2 Flow Rate FiO2 12/26/19 09:34 128/70 12/26/19 09:00 Nasal Cannula 3.0 12/26/19 08:00 98.8 92 18 128/70 (89) 93 12/26/19 04:00 85 12/26/19 04:00 97.9 91 19 137/64 (88) 93 12/26/19 00:00 98.1 92 19 136/77 (96) 90 12/26/19 00:00 93 12/25/19 21:00 Nasal Cannula 3.0 12/25/19 20:00 98.1 98 20 109/62 (78) 91 12/25/19 20:00 93 12/25/19 19:47 93 Nasal Cannula 3.0 32 12/25/19 16:00 94 12/25/19 16:00 96.8 88 18 125/77 (93) 88 Intake and Output 12/25/19 12/26/19 19:00 07:00 Intake Total 600 ml Balance 600 ml Intake Oral 600 ml # Voids 3 # Bowel Movements 3 General Appearance: WD/WN HEENT: normocephalic, atraumatic, mucous membranes moist Respiratory: chest wall non-tender, lungs clear Cardiovascular: normal peripheral pulses, normal rate Abdomen: normal bowel sounds Extremities: other - edema +2 BLE Skin: no rash 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, abnormal gait - with walker , alert, oriented x 3, responsive Musculoskeletal: normal muscle bulk Microbiology Date/Time Source Procedure Growth Status 12/25/19 14:28 Nasopharynx Coronavirus COVID-19 PCR ([facility]) - Final Complete Laboratory Tests 12/26/19 05:10: White Blood Count 12.6H, Red Blood Count 4.37, Hemoglobin 9.4L, Hematocrit 33.1L , Mean Corpuscular Volume 76L, Mean Corpuscular Hemoglobin 21.4L, Mean Corpuscular Hemoglobin Concent 28.3L, Red Cell Distribution Width 22.8H, Platelet Count 330, Mean Platelet Volume 6.4L, Neutrophils (%) (Auto) 70.3, Lymphocytes (%) (Auto) 17.8L, Monocytes (%) (Auto) 6.8, Eosinophils (%) (Auto) 3.8H, Basophils (%) (Auto) 1.3, Sodium Level 135L, Potassium Level 4.1, Chloride Level 101, Carbon Dioxide Level 22, Anion Gap 12, Blood Urea Nitrogen 22H, Creatinine 1.3, Estimat Glomerular Filtration Rate 48.4, Glucose Level 129H , Calcium Level 8.8, Total Bilirubin 0.3, Aspartate Amino Transf (AST/SGOT) 42H , Alanine Aminotransferase (ALT/SGPT) 34, Alkaline Phosphatase 97, Total Protein 8.7H, Albumin 3.0L, Globulin 5.7, Albumin/Globulin Ratio 0.5L 12/26/19 06:00: Urine Color Pale yellow, Urine Appearance Clear, Urine pH 5, Urine Specific [place] 1.015, Urine Protein 2+H, Urine Glucose (UA) Negative, Urine Ketones Negative, Urine Blood Negative, Urine Nitrite Negative, Urine Bilirubin Negative , Urine Urobilinogen Normal, Urine Leukocyte Esterase 1+H, Urine RBC 0-2, Urine WBC 5-10H, Urine Squamous Epithelial Cells Few, Urine Bacteria Few Current Medications Medications (Trade) Dose Ordered Sig/Ana Maria Route PRN Reason Start Time Stop Time Status Last Admin Dose Admin Al Hydroxide/Mg Hydroxide (Mylanta) 30 ml Q6H PRN ORAL To Patient Comfort 12/25/19 07:00 01/24/20 06:59 Azithromycin (Zithromax) 500 mg DAILY ORAL 12/25/19 13:30 01/01/20 13:29 12/26/19 09:34 Betamethasone/ Clotrimazole (Lotrisone) 1 applic TWICE A DAY TOPIC 12/19/19 18:00 12/29/19 17:59 12/26/19 09:41 Cefepime HCl 1 gm/ Dextrose 55 ml @ 110 mls/hr Q24H IVPB 12/25/19 18:00 01/01/20 17:59 12/25/19 18:24 Dextrose (Dextrose 50%) 25 ml Q30M PRN IV Hypoglycemia 12/18/19 20:00 03/17/20 19:59 Dextrose (Dextrose 50%) 50 ml Q30M PRN IV Hypoglycemia 12/18/19 20:00 03/17/20 19:59 Diphenhydramine HCl (Benadryl) 25 mg Q4H PRN IVP Itching 12/18/19 20:15 01/17/20 20:14 12/24/19 20:06 Docusate Sodium (Colace) 100 mg BIDPRN PRN ORAL Constipation 12/22/19 20:00 01/21/20 19:59 12/22/19 21:01 Docusate Sodium (Colace) 100 mg THREE TIMES A DAY ORAL 12/23/19 13:00 01/22/20 12:59 12/26/19 12:32 Gabapentin (Neurontin) 300 mg BEDTIME ORAL 12/18/19 21:00 01/17/20 20:59 12/25/19 20:59 Heparin Sodium (Porcine) (Heparin 5000 units/ml) 5,000 units EVERY 12 HOURS SUBQ 12/18/19 09:00 02/01/20 08:59 12/26/19 09:40 Insulin Aspart (NovoLOG) BEFORE MEALS AND HS SUBQ 12/18/19 21:00 03/17/20 20:59 12/26/19 11:54 Lactulose (Cephulac) 30 gm THREE TIMES A DAY ORAL 12/23/19 13:00 01/22/20 12:59 12/26/19 09:34 Lisinopril (ZestriL) 10 mg DAILY ORAL 12/19/19 09:00 01/18/20 08:59 12/26/19 09:34 Mineral Oil (Fleet's Mineral Oil Enema) 133 ml EVERY OTHER DAY RECTAL 12/25/19 09:00 01/24/20 08:59 12/25/19 09:28 Morphine Sulfate (Morphine Sulfate) 2 mg Q4H PRN IVP For Pain 12/26/19 09:00 01/02/20 08:59 12/26/19 09:35 Promethazine HCl/ Codeine (Phenergan with Codeine) 5 ml Q4H PRN ORAL For Cough 12/21/19 22:00 01/20/20 21:59 12/21/19 22:12 Sodium Chloride 1,000 ml @ 50 mls/hr Q20H IV 12/25/19 21:00 01/24/20 20:59 12/25/19 21:42 Tamsulosin HCl (Flomax) 0.4 mg BEDTIME ORAL 12/23/19 21:00 01/22/20 20:59 12/25/19 20:59 Assessment/Plan Problems: (1) Sepsis (2) Anemia (3) CHF exacerbation (4) COPD (chronic obstructive pulmonary disease) (5) Peripheral edema (6) Diabetic nephropathy (7) Obesity (BMI 30.0-34.9) (8) Diabetes mellitus (9) Chronic liver disease Assessment/Plan persistent leukocytosis, WBC is higher ID evaluation appreciated -Started Empiric CEfepime and Azithromycin by ID no cultures yet OB pending still s/p one unit of PRBC on 12/22, h/h is higher today symptomatic treatment lasix IV, diuresing well, bun/ creatinine stable respiratory treatment titrate fio2 to sat of 92% optimize cardiac meds dvt prophylaxis strict intake and output. Monika Sarmiento MD Dec 26, 2019 12:40
--- NOTE | 2019-12-26 13:34 | Infectious Diseases Prog Note ---
Assessment/Plan Assessment/Plan Assessment: COVID neg x1 CHF exacerbation Acute on chronic hypoxic respiratory failure- on 3l NC- having episodes of desaturation to the high 80s- will evaluate for COVID -12/24 SARS- COV2 pCR neg -12/21 CXR: Vascular and interstitial prominence unchanged. Minimal streaky atelectasis in the lung bases noted. T -12/16 CXR: Basilar interstitial prominence, similar to the previous study, may reflect combination of acute interstitial congestion and chronic interstitial disease. Correlate with clinical findings Leg edema -V. duplex BLE: Negative for evidence of lower extremity deep venous thrombosis bilaterally Afebrile Leukocytosis, increased, now improving- r/o probable PNA 12/24 u/a neg FANY COPD on home O2 iron def anemia former smoker sp cholecystectomy CKD morbid obesity Hep B remote IVDA GERD mild-mod AR HTN Dm2 Plan: -Cont Empiric CEfepime and Azithromycin #2 -f/u cx -Monitor CBC/CMP, temperatures -COVID 19 neg x1- afebrile, alternative diagnosis CHF and probable bacterial PNA - ok to dc isolation -f/u Bcx x2, CXR Thank you for this consultation. Will continue to follow along with you. Discussed with RN. Subjective Allergies: Coded Allergies: No Known Allergies (Unverified , 06/17/12) Subjective afebrile wbc improving Cr improved at 3l NC Objective Vital Signs Last 24 Hour Vital Signs Date Time Temp Pulse Resp B/P (MAP) Pulse Ox O2 Delivery O2 Flow Rate FiO2 12/26/19 12:00 89 12/26/19 12:00 98.0 90 19 135/55 (81) 94 12/26/19 09:34 128/70 12/26/19 09:00 Nasal Cannula 3.0 12/26/19 08:00 91 12/26/19 08:00 98.8 92 18 128/70 (89) 93 12/26/19 04:00 85 12/26/19 04:00 97.9 91 19 137/64 (88) 93 12/26/19 00:00 98.1 92 19 136/77 (96) 90 12/26/19 00:00 93 12/25/19 21:00 Nasal Cannula 3.0 12/25/19 20:00 98.1 98 20 109/62 (78) 91 6/18/20 20:00 93 12/25/19 19:47 93 Nasal Cannula 3.0 32 12/25/19 16:00 94 12/25/19 16:00 96.8 88 18 125/77 (93) 88 Height (Feet): 5 Height (Inches): 2.00 Weight (Pounds): 200 Objective GENERAL: Calm in bed, oriented x3, slight short of breath. CARDIOVASCULAR: No murmur. LUNGS: Poor exchange. ABDOMEN: Bowel sounds distant. EXTREMITIES: Showed no cyanosis or clubbing. 1+ edema bilateral lower extremity. NEUROLOGIC: Patient moves all extremities, slightly weak Microbiology Date/Time Source Procedure Growth Status 12/25/19 14:28 Nasopharynx Coronavirus COVID-19 PCR ([facility]) - Final Complete Laboratory Tests Test 12/26/19 05:10 12/26/19 06:00 White Blood Count 12.6 K/UL (4.8-10.8) H Red Blood Count 4.37 M/UL (4.20-5.40) Hemoglobin 9.4 G/DL (12.0-16.0) L Hematocrit 33.1 % (37.0-47.0) L Mean Corpuscular Volume 76 FL (80-99) L Mean Corpuscular Hemoglobin 21.4 PG (27.0-31.0) L Mean Corpuscular Hemoglobin Concent 28.3 G/DL (32.0-36.0) L Red Cell Distribution Width 22.8 % (11.6-14.8) H Platelet Count 330 K/UL (150-450) Mean Platelet Volume 6.4 FL (6.5-10.1) L Neutrophils (%) (Auto) 70.3 % (45.0-75.0) Lymphocytes (%) (Auto) 17.8 % (20.0-45.0) L Monocytes (%) (Auto) 6.8 % (1.0-10.0) Eosinophils (%) (Auto) 3.8 % (0.0-3.0) H Basophils (%) (Auto) 1.3 % (0.0-2.0) Sodium Level 135 MMOL/L (136-145) L Potassium Level 4.1 MMOL/L (3.5-5.1) Chloride Level 101 MMOL/L (98-107) Carbon Dioxide Level 22 MMOL/L (21-32) Anion Gap 12 mmol/L (5-15) Blood Urea Nitrogen 22 mg/dL (7-18) H Creatinine 1.3 MG/DL (0.55-1.30) Estimat Glomerular Filtration Rate 48.4 mL/min (>60) Glucose Level 129 MG/DL (74-106) H Calcium Level 8.8 MG/DL (8.5-10.1) Total Bilirubin 0.3 MG/DL (0.2-1.0) Aspartate Amino Transf (AST/SGOT) 42 U/L (15-37) H Alanine Aminotransferase (ALT/SGPT) 34 U/L (12-78) Alkaline Phosphatase 97 U/L (46-116) Total Protein 8.7 G/DL (6.4-8.2) H Albumin 3.0 G/DL (3.4-5.0) L Globulin 5.7 g/dL Albumin/Globulin Ratio 0.5 (1.0-2.7) L Urine Color Pale yellow Urine Appearance Clear Urine pH 5 (4.5-8.0) Urine Specific [place] 1.015 (1.005-1.035) Urine Protein 2+ (NEGATIVE) H Urine Glucose (UA) Negative (NEGATIVE) Urine Ketones Negative (NEGATIVE) Urine Blood Negative (NEGATIVE) Urine Nitrite Negative (NEGATIVE) Urine Bilirubin Negative (NEGATIVE) Urine Urobilinogen Normal MG/DL (0.0-1.0) Urine Leukocyte Esterase 1+ (NEGATIVE) H Urine RBC 0-2 /HPF (0 - 2) Urine WBC 5-10 /HPF (0 - 2) H Urine Squamous Epithelial Cells Few /LPF (NONE/OCC) Urine Bacteria Few /HPF (NONE) Current Medications Medications (Trade) Dose Ordered Sig/Ana Maria Route PRN Reason Start Time Stop Time Status Last Admin Dose Admin Al Hydroxide/Mg Hydroxide (Mylanta) 30 ml Q6H PRN ORAL To Patient Comfort 12/25/19 07:00 01/24/20 06:59 Azithromycin (Zithromax) 500 mg DAILY ORAL 12/25/19 13:30 01/01/20 13:29 12/26/19 09:34 Betamethasone/ Clotrimazole (Lotrisone) 1 applic TWICE A DAY TOPIC 12/19/19 18:00 12/29/19 17:59 12/26/19 09:41 Cefepime HCl 1 gm/ Dextrose 55 ml @ 110 mls/hr Q24H IVPB 12/25/19 18:00 01/01/20 17:59 12/25/19 18:24 Dextrose (Dextrose 50%) 25 ml Q30M PRN IV Hypoglycemia 12/18/19 20:00 03/17/20 19:59 Dextrose (Dextrose 50%) 50 ml Q30M PRN IV Hypoglycemia 12/18/19 20:00 03/17/20 19:59 Diphenhydramine HCl (Benadryl) 25 mg Q4H PRN IVP Itching 12/18/19 20:15 01/17/20 20:14 12/24/19 20:06 Docusate Sodium (Colace) 100 mg BIDPRN PRN ORAL Constipation 12/22/19 20:00 01/21/20 19:59 12/22/19 21:01 Docusate Sodium (Colace) 100 mg THREE TIMES A DAY ORAL 12/23/19 13:00 01/22/20 12:59 12/26/19 12:32 Gabapentin (Neurontin) 300 mg BEDTIME ORAL 12/18/19 21:00 01/17/20 20:59 12/25/19 20:59 Heparin Sodium (Porcine) (Heparin 5000 units/ml) 5,000 units EVERY 12 HOURS SUBQ 12/18/19 09:00 02/01/20 08:59 12/26/19 09:40 Insulin Aspart (NovoLOG) BEFORE MEALS AND HS SUBQ 12/18/19 21:00 03/17/20 20:59 12/26/19 11:54 Lactulose (Cephulac) 30 gm THREE TIMES A DAY ORAL 12/23/19 13:00 01/22/20 12:59 12/26/19 09:34 Lisinopril (ZestriL) 10 mg DAILY ORAL 12/19/19 09:00 01/18/20 08:59 12/26/19 09:34 Mineral Oil (Fleet's Mineral Oil Enema) 133 ml EVERY OTHER DAY RECTAL 12/25/19 09:00 01/24/20 08:59 12/25/19 09:28 Morphine Sulfate (Morphine Sulfate) 2 mg Q4H PRN IVP For Pain 12/26/19 09:00 01/02/20 08:59 12/26/19 09:35 Promethazine HCl/ Codeine (Phenergan with Codeine) 5 ml Q4H PRN ORAL For Cough 12/21/19 22:00 01/20/20 21:59 12/21/19 22:12 Sodium Chloride 1,000 ml @ 50 mls/hr Q20H IV 12/25/19 21:00 01/24/20 20:59 12/25/19 21:42 Tamsulosin HCl (Flomax) 0.4 mg BEDTIME ORAL 12/23/19 21:00 01/22/20 20:59 12/25/19 20:59 Aleksandra Vale M.D. Dec 26, 2019 13:34
--- NOTE | 2019-12-26 13:57 | Diagnostic Imaging Report ---
Indication: Dyspnea Technique: XRAY Chest 1v Comparison: 12/22/2019 Findings: Heart size and mediastinal contours are stable. Atherosclerotic desiccation again noted in the aorta. Vascular interstitial prominence appears increased suggesting slight worsening of mild interstitial edema. No radiographically appreciable pleural effusion or pneumothorax. No acute osseous abnormality.. Impression: Interval worsening of aeration with increased vascular and interstitial prominence suggesting interstitial edema/CHF.
[2019-12-26] MEDS ORDERED: NEURONTIN300 MG ORAL (14:25)
[2019-12-26] MEDS ORDERED: FLOMAX0.4 MG ORAL (14:25)
[2019-12-26] MEDS ORDERED: FUROSEMIDE40 MG ORAL (15:30)
[2019-12-26] MEDS ORDERED: LISINOPRIL5 MG ORAL (15:32)
[2019-12-26 16:00] VITALS: BP 146/55
--- NOTE | 2019-12-26 18:26 | Cardiology Progress Note ---
Assessment/Plan Assessment/Plan 1. Chronic obstructive pulmonary disease. 2. Pulmonary hypertension. 3. Aortic stenosis. 4. Essential hypertension. 5. Diabetes mellitus. 6. Obesity. 7. Chronic liver disease. 8. iron def anemia dc iv lasix as cr increased s/p lwo dose ivf covid neg goign home labs noted lisinopril 10mg daily tele sinus lasix 40mg dialy fu as out pt Subjective Cardiovascular: Denies: chest pain, lightheadedness, palpitations Respiratory: Denies: shortness of breath Gastrointestinal/Abdominal: Denies: abdominal pain Genitourinary: Denies: burning Objective Last 24 Hour Vital Signs Date Time Temp Pulse Resp B/P (MAP) Pulse Ox O2 Delivery O2 Flow Rate FiO2 12/26/19 16:00 96.6 95 18 146/55 (85) 93 12/26/19 12:00 89 12/26/19 12:00 98.0 90 19 135/55 (81) 94 12/26/19 09:34 128/70 12/26/19 09:00 Nasal Cannula 3.0 12/26/19 08:00 91 12/26/19 08:00 98.8 92 18 128/70 (89) 93 12/26/19 04:00 85 12/26/19 04:00 97.9 91 19 137/64 (88) 93 12/26/19 00:00 98.1 92 19 136/77 (96) 90 12/26/19 00:00 93 12/25/19 21:00 Nasal Cannula 3.0 12/25/19 20:00 98.1 98 20 109/62 (78) 91 12/25/19 20:00 93 12/25/19 19:47 93 Nasal Cannula 3.0 32 General Appearance: no apparent distress, alert Neck: supple Intake and Output 12/25/19 12/26/19 19:00 07:00 Intake Total 600 ml Balance 600 ml Intake Oral 600 ml # Voids 3 # Bowel Movements 3 Laboratory Tests Test 12/26/19 05:10 12/26/19 06:00 White Blood Count 12.6 K/UL (4.8-10.8) H Red Blood Count 4.37 M/UL (4.20-5.40) Hemoglobin 9.4 G/DL (12.0-16.0) L Hematocrit 33.1 % (37.0-47.0) L Mean Corpuscular Volume 76 FL (80-99) L Mean Corpuscular Hemoglobin 21.4 PG (27.0-31.0) L Mean Corpuscular Hemoglobin Concent 28.3 G/DL (32.0-36.0) L Red Cell Distribution Width 22.8 % (11.6-14.8) H Platelet Count 330 K/UL (150-450) Mean Platelet Volume 6.4 FL (6.5-10.1) L Neutrophils (%) (Auto) 70.3 % (45.0-75.0) Lymphocytes (%) (Auto) 17.8 % (20.0-45.0) L Monocytes (%) (Auto) 6.8 % (1.0-10.0) Eosinophils (%) (Auto) 3.8 % (0.0-3.0) H Basophils (%) (Auto) 1.3 % (0.0-2.0) Sodium Level 135 MMOL/L (136-145) L Potassium Level 4.1 MMOL/L (3.5-5.1) Chloride Level 101 MMOL/L (98-107) Carbon Dioxide Level 22 MMOL/L (21-32) Anion Gap 12 mmol/L (5-15) Blood Urea Nitrogen 22 mg/dL (7-18) H Creatinine 1.3 MG/DL (0.55-1.30) Estimat Glomerular Filtration Rate 48.4 mL/min (>60) Glucose Level 129 MG/DL (74-106) H Calcium Level 8.8 MG/DL (8.5-10.1) Total Bilirubin 0.3 MG/DL (0.2-1.0) Aspartate Amino Transf (AST/SGOT) 42 U/L (15-37) H Alanine Aminotransferase (ALT/SGPT) 34 U/L (12-78) Alkaline Phosphatase 97 U/L (46-116) Total Protein 8.7 G/DL (6.4-8.2) H Albumin 3.0 G/DL (3.4-5.0) L Globulin 5.7 g/dL Albumin/Globulin Ratio 0.5 (1.0-2.7) L Urine Color Pale yellow Urine Appearance Clear Urine pH 5 (4.5-8.0) Urine Specific [place] 1.015 (1.005-1.035) Urine Protein 2+ (NEGATIVE) H Urine Glucose (UA) Negative (NEGATIVE) Urine Ketones Negative (NEGATIVE) Urine Blood Negative (NEGATIVE) Urine Nitrite Negative (NEGATIVE) Urine Bilirubin Negative (NEGATIVE) Urine Urobilinogen Normal MG/DL (0.0-1.0) Urine Leukocyte Esterase 1+ (NEGATIVE) H Urine RBC 0-2 /HPF (0 - 2) Urine WBC 5-10 /HPF (0 - 2) H Urine Squamous Epithelial Cells Few /LPF (NONE/OCC) Urine Bacteria Few /HPF (NONE) Microbiology Date/Time Source Procedure Growth Status 12/25/19 14:28 Nasopharynx Coronavirus COVID-19 PCR ([facility]) - Final Complete Objective not examined as now in covid siolation per dr morris GENERAL: Calm in bed, oriented x3, slight short of breath. CARDIOVASCULAR: No murmur. LUNGS: Poor exchange. ABDOMEN: Bowel sounds distant. EXTREMITIES: Showed no cyanosis or clubbing. 1+ edema bilateral lower extremity Panfilo Mahan MD Dec 26, 2019 18:26
--- NOTE | 2019-12-28 22:26 | Discharge Summary ---
Discharge Summary Discharge Summary _ DATE OF ADMISSION: 12/17/2019 DATE OF DISCHARGE: 12/26/2019 DISCHARGED BY: Dr. Jai Siddiqi CONSULTANTS: Dr. Panfilo Yanez BRIEF HOSPITAL COURSE: Patient is a 74-year-old female, who lives at home, presented to ED due to leg swelling and shortness of breath. She has history of hypertension, obesity, CHF , COPD and is on home O2. She stated Lasix was not helping. She denied chest pain. Denied fever or chills. Denied cough. Upon evaluation at the ED, blood work did not show any leukocytosis. Hemoglobin 9, hematocrit 33. Platelet count 448. Electrolytes were normal. Kidney function stable. Troponin was negative. proBNP 165. EKG was in normal sinus rhythm with no acute changes. Chest x-ray showed basilar interstitial prominence. She was then admitted for CHF exacerbation. She was admitted to monitored floor. She was given respiratory treatment. She was started on IV diuresis with Lasix. She was evaluated by field operations manager and photograph developer. Shortness of breath could be secondary to COPD, diastolic heart failure and aortic stenosis. Patient was not getting enough diuretics at home. She also had bilateral leg edema. She was taken off Norvasc and was given lisinopril. Glucose was monitored. She was placed on insulin sliding scale. She continued to have significant edema. There was elevation in creatinine. She was given lower dose of Lasix. Venous duplex was negative for acute DVT bilaterally. There was consideration for possible interstitial lung disease. Anemia work-up showed deficient iron. She did not require any blood transfusion. Patient was recommended to have echocardiogram as outpatient at [facility] to have an accurate estimation of aortic stenosis. IV Lasix was eventually changed to p.o. JEANNIE inhibitor dose was increased to 10 mg. She continued to require higher dose oxygenation. She had episodes of desaturation despite being on 3 L nasal cannula. ID was consulted for evaluation of COVID. She was started empirically on cefepime and azithromycin. She was placed on COVID isolation. SARS-CoV-2 PCR was negative. Patient remained afebrile. Patient was taken off isolation. Patient was eventually cleared for discharge home. Advised to continue Lasix 40 mg daily. Follow-up as outpatient. FINAL DIAGNOSES: Acute CHF exacerbation Acute on chronic hypoxic respiratory failure Acute kidney injury COPD on home O2 Pulmonary hypertension Aortic stenosis Essential hypertension Diabetes mellitus Morbid obesity Chronic liver disease Iron deficiency anemia GERD Hepatitis B DISPOSITION: Patient was discharged home. DISCHARGE MEDICATIONS: Refer to Discharge Medication List. DISCHARGE INSTRUCTIONS: Follow-up in a week. I have been assigned to complete a discharge summary on this account, I was not involved with the patient's management.--ANAYELI Rivera Jacqueline Robles NP Dec 28, 2019 22:26
== END 2019-12-26 16:30 | disposition home or self-care (01) | DRG 194 ==
LOC: EMR 21:00 → 2E 21:35 → OBSVTOIN 21:35 → INTOOBSV 22:42 → OBSVTOIN 22:42 → EDBEDREQSVC 12-18 01:19 → EDBEDREQ 12-18 01:19 → EDBEDREQTM 12-18 01:19 → EDBEDREQDT 12-18 01:19 → EDBEDREQSVC 12-18 01:20 → EDBEDREQ 12-18 01:20 → EDBEDREQTM 12-18 01:20 → EDBEDREQ 12-18 06:17
PROC: 30233N1 Transfusion of Nonautologous Red Blood Cells into Peripheral Vein, Percutaneous Approach (ICD-10-PCS; principal; 2019-12-23)
DX: I11.0 Hypertensive heart disease with heart failure (principal); I50.33 Acute on chronic diastolic (congestive) heart failure; J96.01 Acute respiratory failure with hypoxia; J44.9 Chronic obstructive pulmonary disease, unspecified; E11.9 Type 2 diabetes mellitus without complications; I27.20 Pulmonary hypertension, unspecified; Z90.49 Acquired absence of other specified parts of digestive tract; Z99.81 Dependence on supplemental oxygen; Z68.33 Body mass index [BMI] 33.0-33.9, adult; I35.0 Nonrheumatic aortic (valve) stenosis; E66.01 Morbid (severe) obesity due to excess calories; K76.9 Liver disease, unspecified; D50.9 Iron deficiency anemia, unspecified; K21.9 Gastro-esophageal reflux disease without esophagitis; B19.10 Unspecified viral hepatitis B without hepatic coma; Z87.891 Personal history of nicotine dependence; N17.9 Acute kidney failure, unspecified
CPT/HCPCS: 36415; 71045; 80048; 80053; 81003; 82378; 82607; 82728; 82746; 82962; 83540; 83550; 83615; 83735; 83880; 84100; 84484; 85007; 85025; 85044; 85060; 85610; 85651; 85730; 86850; 86900; 86901; 86920; 87040; 93005; 93970; 94640; 94664; 96374; 99285; J1815; J7620; J8499